=== PATIENT | male | born 1955 | race Caucasian/White ===

== ENCOUNTER → 2017-03-04 | Outpatient (CLI) | payer OTHER ==
[~2017-03-04] MED LIST: AMLO-114 PO; ASPI325T39 PO; DIPH1TAB87 PO; DOXY100C41 PO; IBUP-103 PO; LISI40TA PO; METH4PAK PO; PRED20TA PO
[2017-03-04 12:00] LABS: BASO % 0.4 %; BASO ABS # 0.02 K/uL (0-0.2); COMPLETE YES; EOS % 2.7 %; HEMATOCRIT 44.9 % (42-52); IG% 0.4 %; LYMPH % 31.7 %; LYMPH ABS # 1.53 K/uL (1.2-3.4); MEAN CELL VOLUME 87.5 fL (80-100); MEAN CORPUSCULAR HEMOGLOBIN 29.4 pg (25-34); MEAN CORPUSCULAR HGB CONC 33.6 g/dl (32-36); MEAN PLATELET VOLUME 12.8 fL (7.4-10.4); MONO % 12.9 %; NEUT % 51.9 %; PLATELET COUNT 224 K/uL (130-400); RED BLOOD COUNT 5.13 M/uL (4.7-6.1); WHITE BLOOD COUNT 4.82 K/uL (4.8-10.8)
[2017-03-04 12:30] LABS: ALB/GLOB RATIO 1.1 (0.9-2); ALKALINE PHOSPHATASE 60 U/L (45-117); ALT/SGPT 107 U/L (12-78); AST/SGOT 71 U/L (15-37); BLOOD UREA NITROGEN 20 mg/dl (7-18); BUN/CREATININE RATIO 19.8 (10-20); CALCIUM 9.3 mg/dl (8.5-10.1); CARBON DIOXIDE 25 mmol/L (21-32); CHLORIDE 104 mmol/L (98-107); CHOLESTEROL 201 mg/dl (0-200); CHOLESTEROL/HDL RATIO 1.6; GLUCOSE 91 mg/dl (70-99); HDL CHOLESTEROL 124 mg/dl; LDL CHOLESTEROL CALCULATED 68 mg/dl; SODIUM 140 mmol/L (136-145); TRIGLYCERIDES 46 mg/dl (0-150); VERY LOW DENSITY LIPOPROT CALC 9 mg/dl
[2017-03-08 08:23] LABS: HEPATITIS C RNA TMA QUAL Detected
== END | disposition home or self-care (01) ==
LOC: C.LABPBG 08:48
PROVIDERS: ATTEND Neuromusculoskeletal Medicine & OMM
DX: Z00.00 Encounter for general adult medical examination without abnormal findings (principal); Z11.59 Encounter for screening for other viral diseases

== ENCOUNTER → 2017-03-25 | Outpatient (CLI) | payer OTHER ==
[~2017-03-25] MED LIST changes: -DIPH1TAB87 PO; -DOXY100C41 PO; -METH4PAK PO; -PRED20TA PO
[2017-03-25 12:23] LABS: BASO % 0.2 %; BASO ABS # 0.01 K/uL (0-0.2); COMPLETE YES; EOS % 2.5 %; HEMATOCRIT 41.3 % (42-52); IG% 0.2 %; LYMPH % 33.3 %; LYMPH ABS # 1.48 K/uL (1.2-3.4); MEAN CELL VOLUME 87.1 fL (80-100); MEAN CORPUSCULAR HEMOGLOBIN 29.3 pg (25-34); MEAN CORPUSCULAR HGB CONC 33.7 g/dl (32-36); MEAN PLATELET VOLUME 11.9 fL (7.4-10.4); MONO % 13.7 %; NEUT % 50.1 %; PLATELET COUNT 204 K/uL (130-400); RED BLOOD COUNT 4.74 M/uL (4.7-6.1); WHITE BLOOD COUNT 4.44 K/uL (4.8-10.8)
[2017-03-25 12:31] LABS: PROTHROMBIN TIME (PATIENT) 10.2 SECONDS (9.0-12.0)
[2017-03-25 12:39] LABS: ALT/SGPT 83 U/L (12-78); AST/SGOT 42 U/L (15-37); BLOOD UREA NITROGEN 24 mg/dl (7-18); BUN/CREATININE RATIO 25.3 (10-20); CALCIUM 9.4 mg/dl (8.5-10.1); CARBON DIOXIDE 24 mmol/L (21-32); CHLORIDE 107 mmol/L (98-107); CREATININE 0.94 mg/dl (0.60-1.40); GLUCOSE 91 mg/dl (70-99); POTASSIUM 3.8 mmol/L (3.5-5.1); SODIUM 139 mmol/L (136-145); URIC ACID 5.3 mg/dl (2.6-7.2)
[2017-03-25 12:47] LABS: HEPATITIS B AB NEG
[2017-03-25 12:52] LABS: ALB/GLOB RATIO 1.1 (0.9-2); ALKALINE PHOSPHATASE 57 U/L (45-117)
[2017-03-25 12:56] LABS: ESTIMATED AVERAGE GLUCOSE 114 mg/dl; HA1C FLAG Normal (Normal)
[2017-03-27 18:15] LABS: LIVER FIBR APOLIPOPROTEIN A-1 196 mg/dL (94-176); LIVER FIBROS ALPHA-2-MACROGLOB 306 mg/dL (106-279); LIVER FIBROSIS GGT 199 U/L (3-70); NECROINFLAMMATION ACT GRADE A1-A2; NECROINFLAMMATION ACT SCORE 0.48
[2017-03-27 21:49] LABS: CARBOXY THC TO CREAT RATIO 86 NG/MG; CARBOXY THC UR GC/MS 217 NG/ML (CUTOFF=5); URCREATININE 246.4 MG/DL (>/= 20)
[2017-03-28 18:20] LABS: HEPATITIS C VIRAL RNA(LOG) PCR 6.06 LOG IU/ML (<1.18)
[2017-03-30 02:51] LABS: ANTI-CENTROMERE AB <1.0 NEG AI (<1.0 NEG); ANTI-SS-A <1.0 NEG AI (<1.0 NEG); ANTI-SS-B <1.0 NEG AI (<1.0 NEG); DNA ds CRITHIDIA NEGATIVE (NEGATIVE); MICROSOMAL AB 133 IU/ML (<9); Sm Antibody <1.0 NEG AI (<1.0 NEG)
== END | disposition home or self-care (01) ==
LOC: C.LABPBG 08:29
PROVIDERS: ATTEND Internal Medicine Infectious Disease
DX: B18.2 Chronic viral hepatitis C (principal)

== ENCOUNTER 2017-04-15 10:10 | Emergency (ER) | payer OTHER ==
[~2017-04-15] VITALS: Ht 177.8 cm; Wt 91.3 kg
[2017-04-15 10:15] VITALS: TEMP 36.8; Ht 177.8 cm; Wt 91.3 kg
--- NOTE | 2017-04-15 10:44 | EMERGENCY ROOM VISIT NOTE ---
History Report prepared by Anthony: Stanley Cox Under the Supervision of: Dr. Reva Regan M.D. First contact with patient: 10:30 Chief Complaint: SWELLING TO EXTREMITY Stated Complaint: PUFFY THUMBS History of Present Illness The patient is a 62 year old male who presents to the Emergency Room with complaints of worsening bilateral thumb swelling that started 5 days ago. He says that he woke up 5 days ago and noticed left thumb swelling, and thought he may have been bit by a bug in bed. 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 The patient states that he left it alone for a few days, but he noticed the swelling worsening and then he noticed his right thumb getting swollen as well. The patient notes that both his thumb joints are sore and " hurt right to the bone" when they are hit. He adds that his left thumb is still more swollen than his right thumb. The patient was treated twice for Lyme disease. He says that he has Hepatitis C, and gave 12 vials of blood during his Hepatitis workup earlier this month. He takes hypertension medication as well. Source of History: patient Onset: 5 days ago Position: finger(s) (bilateral thumbs, left worse than right) Quality: other (swelling) Timing: worsening Note: Associated symptoms: Bilateral thumb soreness. Review of Systems See HPI for pertinent positives & negatives. A total of 10 systems reviewed and were otherwise negative. Past Medical & Surgical Medical Problems: (1) Alcohol dependence (2) depression NOS (3) Hepatitis (4) Hypertension Family History No pertinent family history Social History Smoking Status: Former Smoker Drug Use: marijuana Marital Status: single Occupation Status: retired Current/Historical Medications Scheduled Amlodipine (Norvasc), 10 MG PO HS Aspirin (Aspirin Ec), 1 TAB PO DAILY Doxycycline (Monohydrate) (Monodox), 100 MG PO BID Lisinopril (Zestril), 40 MG PO QAM Methylprednisolone (Medrol Dosepak), 1 PKT PO UD Scheduled PRN Ibuprofen Tab (Advil), 200 MG PO QPM PRN for Pain Allergies Coded Allergies: No Known Allergies (Unverified , none, 04/15/17) Physical Exam Vital Signs Date Time Temp Pulse Resp B/P (MAP) Pulse Ox O2 Delivery O2 Flow Rate FiO2 04/15/17 11:32 77 16 138/74 98 04/15/17 10:15 36.8 77 18 143/92 97 Room Air Physical Exam Vital signs reviewed. General: Well-appearing 62 year old male, in no significant distress. HEENT: No scleral icterus, PERRLA, neck supple. Atraumatic. Cardiovascular: Regular rate and rhythm, no extra sounds. Pulmonary: Clear to auscultation bilaterally, normal work of breathing. Abdomen: Soft, nontender, nondistended, positive bowel sounds. Musculoskeletal: Mild swelling over left thumb DIP. Mild erythema and tenderness to palpation of nodule. No surrounding cellulitis, streaking, drainage, or foreign material identified. Some crepitus with range of motion of joint. Neurologic: Patient awake alert and oriented x 3, full strength in all 4 extremities. Cranial nerves 2 through 12 grossly intact. Skin: Warm, dry, no rash Medical Decision & Procedures Laboratory Results 04/15/17 11:00 Red Blood Count 4.73, Mean Corpuscular Volume 88.4, Mean Corpuscular Hemoglobin 29.8, Mean Corpuscular Hemoglobin Concent 33.7, Mean Platelet Volume 12.0, Neutrophils (%) (Auto) 59.3, Lymphocytes (%) (Auto) 27.3, Monocytes (%) (Auto) 10.8, Eosinophils (%) (Auto) 2.0, Basophils (%) (Auto) 0.4, Neutrophils # (Auto ) 2.73, Lymphocytes # (Auto) 1.26, Monocytes # (Auto) 0.50, Eosinophils # (Auto ) 0.09, Basophils # (Auto) 0.02 04/15/17 11:00 Test 04/15/17 11:00 White Blood Count 4.61 K/uL (4.8-10.8) Red Blood Count 4.73 M/uL (4.7-6.1) Hemoglobin 14.1 g/dL (14.0-18.0) Hematocrit 41.8 % (42-52) Mean Corpuscular Volume 88.4 fL (80-100) Mean Corpuscular Hemoglobin 29.8 pg (25-34) Mean Corpuscular Hemoglobin Concent 33.7 g/dl (32-36) Platelet Count 151 K/uL (130-400) Mean Platelet Volume 12.0 fL (7.4-10.4) Neutrophils (%) (Auto) 59.3 % Lymphocytes (%) (Auto) 27.3 % Monocytes (%) (Auto) 10.8 % Eosinophils (%) (Auto) 2.0 % Basophils (%) (Auto) 0.4 % Neutrophils # (Auto) 2.73 K/uL (1.4-6.5) Lymphocytes # (Auto) 1.26 K/uL (1.2-3.4) Monocytes # (Auto) 0.50 K/uL (0.11-0.59) Eosinophils # (Auto) 0.09 K/uL (0-0.5) Basophils # (Auto) 0.02 K/uL (0-0.2) RDW Standard Deviation 49.4 fL (36.4-46.3) RDW Coefficient of Variation 15.1 % (11.5-14.5) Immature Granulocyte % (Auto) 0.2 % Immature Granulocyte # (Auto) 0.01 K/uL (0.00-0.02) Erythrocyte Sedimentation Rate 19 mm/hr (0-14) Anion Gap 3.0 mmol/L (3-11) Est Creatinine Clear Calc Drug Dose 88.6 ml/min Estimated GFR () 95.9 Estimated GFR (Non- 82.7 BUN/Creatinine Ratio 24.3 (10-20) Calcium Level 9.3 mg/dl (8.5-10.1) C-Reactive Protein < 0.29 mg/dl (0-0.29) Lyme Disease IgG Antibody POS (NEG) Laboratory results per my review. ED Course 1034: Past medical records reviewed. The patient was evaluated in room A4B. A complete history and physical examination was performed. 1120: I reevaluated the patient and he is resting. The patient verbally expressed understanding and agreement with the treatment plan. The patient will be discharged. Medical Decision Differentials: Exacerbation of arthritis, gout, Lyme disease, bony injury, overuse. This patient was evaluated and appeared to be in no significant distress. Physical examination reveals arthritic distal joints with mild crepitus, particularly of the left thumb interphalangeal joint. Laboratory work was obtained however the patient requested to be discharged and call back for results. He is a very mildly elevated sedimentation rate, normal CRP. Lyme titer is positive, Western blot is pending. The patient will be treated with a 3 week course of doxycycline unless the confirmatory test come back negative. Patient is aware of the plan and agrees. He was also given a prescription for a Medrol Dosepak to assist with his discomfort. He will follow-up with his PCP for reevaluation and return to the ER for worsening of symptoms or any medical concerns. Medication Reconcilliation Current Medication List: was personally reviewed by me Blood Pressure Screening Patient's blood pressure: Elevated blood pressure Blood pressure disposition: Elevated BP felt to be situational Impression Primary Impression: Swelling of left thumb Scribe Attestation The scribe's documentation has been prepared under my direction and personally reviewed by me in its entirety. I confirm that the note above accurately reflects all work, treatment, procedures, and medical decision making performed by me. Departure Information Dispostion Home / Self-Care Prescriptions Doxycycline (Monohydrate) (MONODOX) 100 Mg Cap 100 MG PO BID, #42 CAP Prov: Reva Regan M.D. 04/15/17 Methylprednisolone (MEDROL DOSEPAK) 4 Mg Jorje 1 PKT PO UD for 6 Days, #1 PKT Prov: Reva Regan M.D. 04/15/17 Referrals No Doctor, Assigned (PCP) Maciel Strong D.Steph. Forms HOME CARE DOCUMENTATION FORM, IMPORTANT VISIT INFORMATION, WORK / SCHOOL INSTRUCTIONS Patient Instructions My [facility] Additional Instructions Diagnosis: Left thumb swelling. Ibuprofen 600 mg every 6 hours as needed for pain with food. Minimize recurrent trauma to the joint causing pain. Your laboratory work is pending, please call the emergency department within 24- 48 hours for laboratory results. [id number]. Follow-up with your primary care physician this week for reevaluation. Return to the emergency department for worsening of symptoms or any medical concerns.
[2017-04-15 11:13] LABS: BASO % 0.4 %; BASO ABS # 0.02 K/uL (0-0.2); COMPLETE YES; HEMATOCRIT 41.8 % (42-52); IG% 0.2 %; LYMPH % 27.3 %; LYMPH ABS # 1.26 K/uL (1.2-3.4); MEAN CELL VOLUME 88.4 fL (80-100); MEAN CORPUSCULAR HEMOGLOBIN 29.8 pg (25-34); MEAN CORPUSCULAR HGB CONC 33.7 g/dl (32-36); MONO % 10.8 %; NEUT % 59.3 %; PLATELET COUNT 151 K/uL (130-400); RED BLOOD COUNT 4.73 M/uL (4.7-6.1); WHITE BLOOD COUNT 4.61 K/uL (4.8-10.8)
[2017-04-15] MEDS ORDERED: METH4PAK PO (11:24)
[2017-04-15 11:30] LABS: BLOOD UREA NITROGEN 24 mg/dl (7-18); BUN/CREATININE RATIO 24.3 (10-20); C-REACTIVE PROTEIN < 0.29 mg/dl (0-0.29); CALCIUM 9.3 mg/dl (8.5-10.1); CARBON DIOXIDE 27 mmol/L (21-32); CHLORIDE 109 mmol/L (98-107); CREATININE 0.97 mg/dl (0.60-1.40); GLUCOSE 87 mg/dl (70-99); POTASSIUM 4.2 mmol/L (3.5-5.1); SODIUM 139 mmol/L (136-145)
[2017-04-15 11:32] VITALS: BP 138/74; PULSE 77; O2SAT 98
[2017-04-15 12:21] LABS: LYME DISEASE AB IGG POS (NEG); LYME DISEASE AB IGM POS (NEG)
[2017-04-15] MEDS ORDERED: DOXY100C41 PO (12:59)
[2017-04-21 13:08] LABS: 18KDIGG BAND REACTIVE (NONREACTIVE); 23KDIGG BAND REACTIVE (NONREACTIVE); 23KDIGM BAND REACTIVE (NONREACTIVE); 28KDIGG BAND REACTIVE (NONREACTIVE); 30KDIGG BAND REACTIVE (NONREACTIVE); 39KDIGG BAND REACTIVE (NONREACTIVE); 39KDIGM BAND NONREACTIVE (NONREACTIVE); 41KDIGG BAND REACTIVE (NONREACTIVE); 41KDIGM BAND REACTIVE (NONREACTIVE); 45KDIGG BAND REACTIVE (NONREACTIVE); 58KDIGG BAND REACTIVE (NONREACTIVE); 66KDIGG BAND REACTIVE (NONREACTIVE); 93KDIGG BAND REACTIVE (NONREACTIVE)
== END 2017-04-15 11:32 | disposition home or self-care (01) ==
LOC: C.EDB 10:11 → C.EDA 11:32
DX: M79.89 Other specified soft tissue disorders (principal); A69.20 Lyme disease, unspecified; B19.20 Unspecified viral hepatitis C without hepatic coma; I10 Essential (primary) hypertension; F32.9 Major depressive disorder, single episode, unspecified; F10.20 Alcohol dependence, uncomplicated; Z87.891 Personal history of nicotine dependence; Z79.82 Long term (current) use of aspirin; Z79.899 Other long term (current) drug therapy

== ENCOUNTER 2017-05-06 08:07 | Emergency (ER) | payer OTHER ==
[~2017-05-06] VITALS: Ht 172.7 cm; Wt 91.9 kg
[2017-05-06 08:11] VITALS: TEMP 36.7; Ht 172.7 cm; Wt 91.9 kg
--- NOTE | 2017-05-06 08:30 | EMERGENCY ROOM VISIT NOTE ---
History Report prepared by Latanyaibleatha: Susan Mueller Under the Supervision of: Dr. Mauricio Duque M.D. First contact with patient: 08:21 Chief Complaint: ALLERGIC REACTION Stated Complaint: BEE STING/SWELLING Nursing Triage Summary: Stung by bee yesterday around 1900 when taking a vodka shot. Thought symptoms may improve by this AM, swelling continued. Now with headache. History of Present Illness The patient is a 62 year old male who presents to the Emergency Room with complaints of persistent lower lip swelling that began around 12 hours ago. The patient states that last evening he was taking a shot of vodka and then found that a bee was in the bottom of the glass. He states that he noticed he was stung and states that his lower lip swelled. The patient states that he has been stung in the past, but denies ever having a reaction like this in the past. He states that he takes medications for hypertension, but states that he didn't take it this morning. The patient denies any medication allergies. Source of History: patient Onset: 12 hours ago Position: lip (lower) Quality: other (swelling) Timing: other (persistent) Review of Systems See HPI for pertinent positives & negatives. A total of 10 systems reviewed and were otherwise negative. Past Medical & Surgical Medical Problems: (1) Alcohol dependence (2) depression NOS (3) Hepatitis (4) Hypertension Family History No pertinent family history Social History Smoking Status: Never Smoker Drug Use: marijuana Marital Status: single Occupation Status: retired Current/Historical Medications Scheduled Amlodipine (Norvasc), 10 MG PO HS Aspirin (Aspirin Ec), 1 TAB PO DAILY Diphenhydramine Hcl (Benadryl Allergy), 1-2 TAB PO Q6 Lisinopril (Zestril), 40 MG PO QAM Prednisone (Prednisone), 2 TAB PO DAILY Scheduled PRN Ibuprofen Tab (Advil), 200 MG PO QPM PRN for Pain Allergies Coded Allergies: No Known Allergies (Unverified , none, 04/15/17) Physical Exam Vital Signs Date Time Temp Pulse Resp B/P (MAP) Pulse Ox O2 Delivery O2 Flow Rate FiO2 05/06/17 08:17 Room Air 05/06/17 08:11 36.7 87 18 141/98 97 Room Air Physical Exam GENERAL: Patient is in no acute distress. HEENT: Edema to the right face and lower lip. No cellulitis. No swelling to the floor of the mouth, no uvular edema, no tongue swelling. Mucous membranes moist. NECK: No stridor, no adenopathy, no meningismus, trachea is midline. LUNGS: Clear to auscultation bilaterally, no wheeze, no rhonchi, breath sounds equal. HEART: Without murmurs gallops or rubs, regular rate and rhythm. ABDOMEN: Soft, nontender, bowel sounds positive, no hernias, no peritonitis. EXTREMITIES: No cyanosis or edema, full range of motion of all the joints without pain or difficulty, no signs for acute trauma. NEUROLOGIC: Oriented x 3, no acute motor or sensory deficits, no focal weakness. SKIN: No rash, no jaundice, no diaphoresis. Medical Decision & Procedures ED Course 08: The patient was evaluated in room B9. A complete history and physical exam was performed. 0825: Ordered Prednisone 40 mg PO. 0827: I discussed the exam findings with the patient and I discussed the treatment plan. He verbalized complete understanding and agreement. He is ready to go home shortly. 0830: Ordered Benadryl Cap 25 mg PO. Medical Decision The patient is a 62 year old male who presents to the ED with complaints of lower lip swelling. Differential diagnoses considered include Allergic reaction , large local bee sting reaction, edema, airway compromise. The patient presents with a bee sting that occurred around 12 hours ago. He has no uvular edema, there is no stridor, no swelling to the floor of the mouth. He is not wheezing. This is not an allergic reaction but more a larger local reaction on the face from the bee sting. The patient was given oral Benadryl and oral prednisone, head elevation when sleeping, ice were suggested. The patient can restart his normal blood pressure medications as before. He was encouraged to return for worsening breathing or worsening symptoms. Impression Primary Impression: Bee sting Additional Impression: Local reaction to bee sting Scribe Attestation The scribe's documentation has been prepared under my direction and personally reviewed by me in its entirety. I confirm that the note above accurately reflects all work, treatment, procedures, and medical decision making performed by me. Departure Information Dispostion Home / Self-Care Prescriptions Diphenhydramine Hcl (BENADRYL ALLERGY) 25 Mg Tab 1-2 TAB PO Q6 for 4 Days, #32 TAB Prov: Mauricio Duque M.D. 05/06/17 Prednisone (Prednisone) 20 Mg Tab 2 TAB PO DAILY for 4 Days, #8 TAB Prov: Mauricio Duque M.D. 05/06/17 Referrals Maciel Strong D.O. (PCP) Forms HOME CARE DOCUMENTATION FORM, IMPORTANT VISIT INFORMATION Patient Instructions [facility] Additional Instructions benadryl 1-2 tab every 6 hours for 4 days ice to help the swelling elevate the head when sleeping to help the swelling prednisone 2 tab daily for the next 4 days return if worsening Problem Qualifiers
[2017-05-06] MEDS ORDERED: PRED20TA PO (08:32)
[2017-05-06] MEDS ORDERED: DIPH1TAB PO (08:32)
[2017-05-06 08:40] VITALS: BP 141/98; PULSE 87; O2SAT 97
== END 2017-05-06 08:43 | disposition home or self-care (01) ==
LOC: C.EDB 08:09
DX: T63.441A Toxic effect of venom of bees, accidental (unintentional), initial encounter (principal); I10 Essential (primary) hypertension; F32.9 Major depressive disorder, single episode, unspecified; F10.20 Alcohol dependence, uncomplicated; F12.90 Cannabis use, unspecified, uncomplicated; Z79.82 Long term (current) use of aspirin; Z79.899 Other long term (current) drug therapy

== ENCOUNTER → 2017-05-11 | Outpatient (CLI) | payer OTHER ==
[~2017-05-11] MED LIST changes: +DIPH1TAB PO; +PRED20TA PO
[2017-05-13 03:12] LABS: URCREATININE 9.3 MG/DL (>/= 20)
== END | disposition home or self-care (01) ==
LOC: C.LAB 11:15
PROVIDERS: ATTEND Internal Medicine Infectious Disease
DX: B19.20 Unspecified viral hepatitis C without hepatic coma (principal)

== ENCOUNTER 2021-12-23 12:05 | Inpatient (IN) ==
[2021-12-23] MEDS ORDERED: MULTI-VITAMIN INFUSION 10 ML, THIAMINE HCL 100 MG, FOLIC ACID 1 MG in SODIUM CHLORIDE 0... IV ONE (12:32)
--- NOTE | 2021-12-23 12:55 | XRay Report ---
SINGLE VIEW CHEST CLINICAL HISTORY: Atypical chest pain FINDINGS: An AP, portable, upright chest radiograph is compared to chest x-ray and chest CT dated 01/18. The heart is enlarged noting atherosclerotic calcification of the thoracic aorta. The pulmonar y vasculature is noncongested. Chronic residual thickening is similar to previous. Foci of scarring/a telectasis are seen throughout both lungs. No airspace consolidation or large pleural effusion is arben ntified. No pneumothorax is seen. The skeletal structures are osteopenic. There are healed bilateral rib fractures. IMPRESSION: Cardiomegaly with no acute cardiopulmonary abnormality. ACT 112: Negative or not required by law. Electronically signed by: Mauricio Tucker M.D. 12/23/2021 12:53 PM
[2021-12-23 13:05] LABS: Basophils # (auto) 0.01 K/uL (0-0.2); Basophils % (auto) 0.2 %; Eosinophils # (auto) 0.02 K/uL (0-0.5); Eosinophils % (auto) 0.4 %; Hematocrit (blood only) 42.7 % (42-52); Hemoglobin 14.6 g/dL (14.0-18.0); Immature Granulocytes # (auto) 0.01 K/uL (0.00-0.02); Immature Granulocytes % (auto) 0.2 %; Lymphocytes # (auto) 1.15 K/uL (1.2-3.4); Lymphocytes % (auto) 20.9 %; Mean Corpuscular Hemoglobin 30.9 pg (25-34); Mean Corpuscular Hgb Conc 34.2 g/dL (32-36); Mean Corpuscular Volume 90.3 fL (80-100); Mean Platelet Volume 11.9 fL (7.4-10.4); Monocytes # (auto) 0.75 K/uL (0.11-0.59); Monocytes % (auto) 13.6 %; Neutrophils # (auto) 3.57 K/uL (1.4-6.5); Neutrophils % (auto) 64.7 %; Platelet Count 168 K/uL (130-400); RDW Coefficient of Variation 14.5 % (11.5-14.5); Red Blood Count 4.73 M/uL (4.7-6.1); White Blood Count 5.51 K/uL (4.8-10.8)
[2021-12-23 13:30] LABS: Albumin Globulin Ratio 1.1 (0.9-2); Albumin Level 4.5 gm/dl (3.4-5.0); BUN Creatinine Ratio 13.1 (10-20); Bilirubin,Total 1.1 mg/dl (0.2-1.0); Calcium 9.7 mg/dl (8.5-10.1); Creatinine Clr Calc Pharmacy 95.1 ml/min; Est GFR (Non-African American) 90.6 ml/min; Globulin 4.1 gm/dl (2.5-4.0); Magnesium 1.6 mg/dl (1.7-2.4); Phosphorus 3.7 mg/dl (2.5-4.9); Potassium 3.6 mmol/L (3.5-5.1); Total Protein 8.6 gm/dl (6.0-8.3)
--- NOTE | 2021-12-23 14:36 | CT Scan Report ---
CT head/brain wo con CLINICAL HISTORY: 66 years-old Male with ams. Acutely altered mental status TECHNIQUE: Multiple axial CT images of the head were obtained without contrast. A dose lowering tech nique was utilized adhering to the principles of ALARA. CT DOSE: 614.27 mGy.cm COMPARISON: Head CT 01/18/2021 FINDINGS: No acute intracranial hemorrhage, midline shift, intracranial mass, hydrocephalus, territorial ischem ia or abnormal extra-axial collection. Age-related involutional changes with ex vacuo ventriculomegal y. White matter hypodensities suggest chronic microvascular ischemic disease. Cerebral vascular calci fications. The calvarium is intact. There is a sessile cutaneous lesion of the right temporal scalp on image 15 measuring 1.9 cm. The paranasal sinuses, mastoid air cells, and middle ear cavities are clear. IMPRESSION: No acute intracranial abnormality. ACT 112: Negative or not required by law. The above report was generated using voice recognition software. It may contain grammatical, syntax o r spelling errors. Electronically signed by: Brandt Seo M.D. 12/23/2021 2:34 PM
[2021-12-23] MEDS: MAGNESIUM SULFATE / D5W 1 GM/100 ML BAG IV SCH ×2 (14:48→15:56)
[2021-12-23] MEDS ORDERED: THIAMINE HCL 200 MG in SODIUM CHLORIDE 0.9% 50 ML IV STA (15:37)
[2021-12-23] MEDS: LORazepam 2 MG/1 ML VIAL IV PRN ×7 (17:50→23:21)
--- NOTE | 2021-12-23 18:44 | Emergency Department Note ---
Impression & Plan Encephalopathy, Alcohol dependence, Marijuana use, Hypertensive urgency, Delirium tremens, Hypomagnesemia ED Provider Note NAME: RICO BRINK AGE: 66 SEX: M ARRIVES VIA: Ambulance INFORMANT: Patient, EMS ED PROVIDER(S): Theodore Jacome MD CHIEF COMPLAINT: AMS PLAN: Disposition: Admit MEDICAL DECISION MAKING: The patient patient is a 66-year-old gentleman with a past medical history of alcohol dependence/alcoholism who presents emergency department via EMS. It appears that the patient himself called 911 due to delusions of odor and walking on his roof and looking into his house with a flashlight where he describes them as heroin addicts. The patient is a poor historian and lacks insight at this time. It was the impression from EMS that the patient's perseverations of these children looking into his house are delusions. The patient denies any daily alcohol use and does not feel as though he is withdrawing. However he is unable to clearly explain any of the details of what led him to be brought to the emergency department other than his continued presumed hallucinations regarding children on his roof. On arrival the patient is hypertensive in the 200s/100s and vital signs otherwise stable. He appears clinically dry. He has no focal neurologic deficits and is moving all extremities equally. He does not exhibit any severe tremor on arrival. EKG without overt acute ischemia. Chest x-ray was negative for acute cardiopulmonary process. WBC, H/H, platelets wnl. Chemistry without acidosis. Magnesium 1.6 with repletion provided. Otherwise, Electrolytes unremarkable. LFTs similar to prior. High-sensitivity Troponin wnl. Lipase is not elevated. Covid-19 RNA, NAAT neg ative. Blood alcohol was undetectable. He was also provided with IV fluid hydration with banana bag as well as IV thiamine for suspicion for encephalopathy secondary to alcohol dependence/Wernicke's versus delirium tremens though he did not appear to be acutely withdrawing on arrival. However, AWSS scoring ordered and Ativan was administered prn. CT of the head was performed and was negative for acute process. The patient appears to be suffering from wernicke's vs DTs and does not exhibit decision-making capacity at this time and so will proceed with admission for further management. Case was d/w Dr. Tony, [facility] hospitalist who will evaluate the patient for admission. Triage Nursing notes reviewed and agree them. Prior medical records reviewed Vital Signs: reviewed and remarkable for hypertension. Differential diagnosis: Infection, hypoglycemia, electrolyte abnormalities, overdose, toxicologic, cardiac sources, intracerebral event, neurologic, trauma, as well as other pathologies. ER treatment provided: See below. Diagnostics interpreted by me: ECG: Normal sinus rhythm, 91 bpm, no ectopy, no overt ST elevation or depression, QTC 499, QRS 94. Cardiac Monitoring: An order for continuous cardiac monitoring was placed and demonstrated normal sinus rhythm, 91 bpm, no ectopy. Laboratory studies: See below Imaging studies: See below Consultation(s): Dr. Tony, [facility] hospitalist. HPI: The patient patient is a 66-year-old gentleman with a past medical history of alcohol dependence/alcoholism who presents emergency department via EMS. It appears that the patient himself called 911 due to delusions of odor and walking on his roof and looking into his house with a flashlight where he describes them as heroin addicts. The patient is a poor historian and lacks insight at this time. It was the impression from EMS that the patient's perseverations of these children looking into his house are delusions. The patient denies any daily alcohol use and does not feel as though he is withdrawing. However he is unable to clearly explain any of the details of what led him to be brought to the emergency department other than his continued presumed hallucinations regarding children on his roof. ROS: See above HPI for pertinent positives & negatives. A total of 10 systems reviewed and were otherwise negative. VITALS:See Below PHYSICAL EXAMINATION: GENERAL: Awake, alert, fatigued/anxious-appearing, in no distress HENT: Normocephalic, atraumatic. Oropharynx with dry mucous membranes and otherwise unremarkable. EYES: Normal conjunctiva. Sclera non-icteric. EOMI. No nystamgus. PEARRL. NECK: Supple. No nuchal rigidity. FROM. No JVD. RESPIRATORY: Clear to auscultation. CARDIAC: Regular rate, normal rhythm. Extremities warm and well perfused. Pulses equal. ABDOMEN: Soft, non-distended. No tenderness to palpation. No rebound or guarding. No masses. RECTAL: Deferred. MUSCULOSKELETAL: Chest examination reveals no tenderness. The back is symmetrical on inspection without obvious abnormality. There is no CVA tenderness to palpation. No joint edema. LOWER EXTREMITIES: Calves are equal size bilaterally and non-tender. No edema. No discoloration. NEURO: No focal sensory or motor deficits noted. Delusional. Hallucinations. Lack of insight. SKIN: No rash or jaundice noted. ED COURSE: Critical Care: I have personally spent greater than 45 minutes of critical care time in the direct management of this patient. This includes bedside care, interpretation of diagnostic studies, and testing, discussion with consultants, patient, and family members, and other required patient management activities. This 45 minutes is in excess of all separately billable procedures. Theodore Jacome MD Past Med/Surg History Medical History Alcohol dependence (06/08/11) Bee sting allergy Depression (06/08/11) Hepatitis C Hypertension Marijuana use Surgical History Status post hernia repair Status post knee surgery Family History Father Diabetes Hypertension Mother Breast cancer Denies family history of Ovarian cancer Prostate cancer Myocardial infarction Colorectal cancer Social History Smoking Status: Current some day smoker Hx Alcohol Use: Yes Alcohol type: beer and hard liquor Hx Substance Use: Yes Preferred Language: Peruvian Visual Impairment: No Limitations Hearing Ability: Normal marital status: Single Current Living Situation: Alone current occupational status: retired Feels Safe at Home: No Childhood Exposure to Second-Hand Smoke: No Dental Care, Regularly: Yes Physical Activity Frequency: Does not Exercise Seatbelt Use: always Allergies Allergies Allergy/AdvReac Type Severity Reaction Status Date / Time bee venom protein (honey bee) AdvReac Severe Anaphylaxis Unverified 12/23/21 15:51 Home Meds Home Medications Medication Instructions Recorded Confirmed No Known Home Medications 12/23/21 12/23/21 Results & Data (ED) Vital Signs Vital Signs - 24 hr 12/23/21 12:11 12/23/21 13:37 12/23/21 14:06 Temperature 36.7 C Temperature Source Temporal Artery Scan Pulse Rate 95 H 78 81 Pulse Rate from SpO2 Sensor 79 Respiratory Rate 18 15 19 Blood Pressure 210/115 H Blood Pressure Mean 146 Pulse Oximetry 96 96 Oxygen Delivery Method Room Air Sepsis Recent Fever Within 48 Hours No Sepsis New/Unexplained Change in Mental Status No Sepsis Action Taken by Nursing No Action Required 12/23/21 14:51 12/23/21 15:00 12/23/21 15:30 Temperature Temperature Source Pulse Rate 85 84 91 H Pulse Rate from SpO2 Sensor Respiratory Rate 15 16 Blood Pressure Blood Pressure Mean Pulse Oximetry Oxygen Delivery Method Sepsis Recent Fever Within 48 Hours Sepsis New/Unexplained Change in Mental Status Sepsis Action Taken by Nursing 12/23/21 16:00 12/23/21 16:30 12/23/21 16:57 Temperature Temperature Source Pulse Rate 84 91 H 108 H Pulse Rate from SpO2 Sensor Respiratory Rate 17 18 17 Blood Pressure 154/115 H Blood Pressure Mean 128 Pulse Oximetry Oxygen Delivery Method Sepsis Recent Fever Within 48 Hours Sepsis New/Unexplained Change in Mental Status Sepsis Action Taken by Nursing 12/23/21 17:00 12/23/21 17:10 12/23/21 17:20 Temperature Temperature Source Pulse Rate 102 H 93 H 94 H Pulse Rate from SpO2 Sensor Respiratory Rate 19 21 20 Blood Pressure Blood Pressure Mean Pulse Oximetry Oxygen Delivery Method Sepsis Recent Fever Within 48 Hours Sepsis New/Unexplained Change in Mental Status Sepsis Action Taken by Nursing 12/23/21 17:30 12/23/21 17:38 12/23/21 17:40 Temperature Temperature Source Pulse Rate 93 H 111 H 105 H Pulse Rate from SpO2 Sensor Respiratory Rate 25 H 22 20 Blood Pressure 240/141 H Blood Pressure Mean 174 Pulse Oximetry Oxygen Delivery Method Sepsis Recent Fever Within 48 Hours Sepsis New/Unexplained Change in Mental Status Sepsis Action Taken by Nursing 12/23/21 17:50 12/23/21 18:00 12/23/21 18:10 Temperature Temperature Source Pulse Rate 87 100 H 116 H Pulse Rate from SpO2 Sensor Respiratory Rate 17 17 25 H Blood Pressure Blood Pressure Mean Pulse Oximetry Oxygen Delivery Method Sepsis Recent Fever Within 48 Hours Sepsis New/Unexplained Change in Mental Status Sepsis Action Taken by Nursing 12/23/21 18:20 Temperature Temperature Source Pulse Rate Pulse Rate from SpO2 Sensor Respiratory Rate 18 Blood Pressure Blood Pressure Mean Pulse Oximetry Oxygen Delivery Method Sepsis Recent Fever Within 48 Hours Sepsis New/Unexplained Change in Mental Status Sepsis Action Taken by Nursing Laboratory Data Attestation: I reviewed the patient's lab results. Result diagrams: 12/23/21 12:52 12/23/21 12:52 Lab Results 12/23/21 12/23/21 12/23/21 Range/Units 12:52 12:52 12:52 WBC 5.51 (4.8-10.8) K/uL RBC 4.73 (4.7-6.1) M/uL Hgb 14.6 (14.0-18.0) g/dL Hct 42.7 (42-52) % MCV 90.3 (80-100) fL MCH 30.9 (25-34) pg MCHC 34.2 (32-36) g/dL RDW Std Deviation 48.0 H (36.4-46.3) fL RDW Coeff of Dutch 14.5 (11.5-14.5) % Plt Count 168 (130-400) K/uL MPV 11.9 H (7.4-10.4) fL Immature Gran % (Auto) 0.2 % Neut % (Auto) 64.7 % Lymph % (Auto) 20.9 % Gilliam % (Auto) 13.6 % Eos % (Auto) 0.4 % Baso % (Auto) 0.2 % Neut # (Auto) 3.57 (1.4-6.5) K/uL Lymph # (Auto) 1.15 L (1.2-3.4) K/uL Gilliam # (Auto) 0.75 H (0.11-0.59) K/uL Eos # (Auto) 0.02 (0-0.5) K/uL Baso # (Auto) 0.01 (0-0.2) K/uL Immature Gran # (Auto) 0.01 (0.00-0.02) K/uL PT (9.0-12.0) Seconds INR (0.9-1.1) Sodium (136-145) mmol/L Potassium (3.5-5.1) mmol/L Chloride (98-107) mmol/L Carbon Dioxide (21-32) mmol/L Anion Gap (3-11) BUN (6-23) mg/dl Creatinine (0.6-1.4) mg/dl Est Cr Clr Drug Dosing ml/min Est GFR ( Amer) ml/min Est GFR (Non-Af Amer) ml/min BUN/Creatinine Ratio (10-20) Glucose (70-99(Fasting)) mg/dl Calcium (8.5-10.1) mg/dl Phosphorus (2.5-4.9) mg/dl Magnesium (1.7-2.4) mg/dl Total Bilirubin (0.2-1.0) mg/dl Direct Bilirubin (0-0.2) mg/dl AST (13-39) U/L ALT (7-52) U/L Alkaline Phosphatase (34-104) U/L Ammonia (18-72) umol/L Troponin I High Sens 7.6 (0-20) pg/ml Total Protein (6.0-8.3) gm/dl Albumin (3.4-5.0) gm/dl Globulin (2.5-4.0) gm/dl Albumin/Globulin Ratio (0.9-2) Lipase (11-82) U/L Urine Opiates Screen (Neg) Ur Methadone, Qual (Neg) Urine Barbiturates (Neg) Ur Phencyclidine (PCP) (Neg) U Amphetamin/Meth Scrn (Neg) MDMA (Ecstasy) Screen (Neg) U Benzodiazepines Scrn (Neg) Ur Cocaine Metabolite (Neg) U Marijuana (THC) Screen (Neg) Ethyl Alcohol mg/dL < 10.0 (<10.0) mg/dl SARS-CoV-2, RNA, NAAT (NEGATIVE) 12/23/21 12/23/21 12/23/21 Range/Units 12:52 12:52 12:52 WBC (4.8-10.8) K/uL RBC (4.7-6.1) M/uL Hgb (14.0-18.0) g/dL Hct (42-52) % MCV (80-100) fL MCH (25-34) pg MCHC (32-36) g/dL RDW Std Deviation (36.4-46.3) fL RDW Coeff of Dutch (11.5-14.5) % Plt Count (130-400) K/uL MPV (7.4-10.4) fL Immature Gran % (Auto) % Neut % (Auto) % Lymph % (Auto) % Gilliam % (Auto) % Eos % (Auto) % Baso % (Auto) % Neut # (Auto) (1.4-6.5) K/uL Lymph # (Auto) (1.2-3.4) K/uL Gilliam # (Auto) (0.11-0.59) K/uL Eos # (Auto) (0-0.5) K/uL Baso # (Auto) (0-0.2) K/uL Immature Gran # (Auto) (0.00-0.02) K/uL PT 11.0 (9.0-12.0) Seconds INR 1.0 (0.9-1.1) Sodium 135 L (136-145) mmol/L Potassium 3.6 (3.5-5.1) mmol/L Chloride 97 L (98-107) mmol/L Carbon Dioxide 25 (21-32) mmol/L Anion Gap 13 H (3-11) BUN 11 (6-23) mg/dl Creatinine 0.84 (0.6-1.4) mg/dl Est Cr Clr Drug Dosing 95.1 ml/min Est GFR ( Amer) 105.0 ml/min Est GFR (Non-Af Amer) 90.6 ml/min BUN/Creatinine Ratio 13.1 (10-20) Glucose 99 (70-99(Fasting)) mg/dl Calcium 9.7 (8.5-10.1) mg/dl Phosphorus 3.7 (2.5-4.9) mg/dl Magnesium 1.6 L (1.7-2.4) mg/dl Total Bilirubin 1.1 H (0.2-1.0) mg/dl Direct Bilirubin (0-0.2) mg/dl AST 71 H (13-39) U/L ALT 82 H (7-52) U/L Alkaline Phosphatase 69 (34-104) U/L Ammonia 36.0 (18-72) umol/L Troponin I High Sens (0-20) pg/ml Total Protein 8.6 H (6.0-8.3) gm/dl Albumin 4.5 (3.4-5.0) gm/dl Globulin 4.1 H (2.5-4.0) gm/dl Albumin/Globulin Ratio 1.1 (0.9-2) Lipase 8 L (11-82) U/L Urine Opiates Screen (Neg) Ur Methadone, Qual (Neg) Urine Barbiturates (Neg) Ur Phencyclidine (PCP) (Neg) U Amphetamin/Meth Scrn (Neg) MDMA (Ecstasy) Screen (Neg) U Benzodiazepines Scrn (Neg) Ur Cocaine Metabolite (Neg) U Marijuana (THC) Screen (Neg) Ethyl Alcohol mg/dL (<10.0) mg/dl SARS-CoV-2, RNA, NAAT (NEGATIVE) 12/23/21 12/23/21 12/23/21 Range/Units 12:59 14:00 14:15 WBC (4.8-10.8) K/uL RBC (4.7-6.1) M/uL Hgb (14.0-18.0) g/dL Hct (42-52) % MCV (80-100) fL MCH (25-34) pg MCHC (32-36) g/dL RDW Std Deviation (36.4-46.3) fL RDW Coeff of Dutch (11.5-14.5) % Plt Count (130-400) K/uL MPV (7.4-10.4) fL Immature Gran % (Auto) % Neut % (Auto) % Lymph % (Auto) % Gilliam % (Auto) % Eos % (Auto) % Baso % (Auto) % Neut # (Auto) (1.4-6.5) K/uL Lymph # (Auto) (1.2-3.4) K/uL Gilliam # (Auto) (0.11-0.59) K/uL Eos # (Auto) (0-0.5) K/uL Baso # (Auto) (0-0.2) K/uL Immature Gran # (Auto) (0.00-0.02) K/uL PT (9.0-12.0) Seconds INR (0.9-1.1) Sodium (136-145) mmol/L Potassium (3.5-5.1) mmol/L Chloride (98-107) mmol/L Carbon Dioxide (21-32) mmol/L Anion Gap (3-11) BUN (6-23) mg/dl Creatinine (0.6-1.4) mg/dl Est Cr Clr Drug Dosing ml/min Est GFR ( Amer) ml/min Est GFR (Non-Af Amer) ml/min BUN/Creatinine Ratio (10-20) Glucose (70-99(Fasting)) mg/dl Calcium (8.5-10.1) mg/dl Phosphorus (2.5-4.9) mg/dl Magnesium (1.7-2.4) mg/dl Total Bilirubin (0.2-1.0) mg/dl Direct Bilirubin 0.3 H (0-0.2) mg/dl AST (13-39) U/L ALT (7-52) U/L Alkaline Phosphatase (34-104) U/L Ammonia (18-72) umol/L Troponin I High Sens (0-20) pg/ml Total Protein (6.0-8.3) gm/dl Albumin (3.4-5.0) gm/dl Globulin (2.5-4.0) gm/dl Albumin/Globulin Ratio (0.9-2) Lipase (11-82) U/L Urine Opiates Screen Neg (Neg) Ur Methadone, Qual Neg (Neg) Urine Barbiturates Neg (Neg) Ur Phencyclidine (PCP) Neg (Neg) U Amphetamin/Meth Scrn Neg (Neg) MDMA (Ecstasy) Screen Neg (Neg) U Benzodiazepines Scrn Neg (Neg) Ur Cocaine Metabolite Neg (Neg) U Marijuana (THC) Screen Neg (Neg) Ethyl Alcohol mg/dL (<10.0) mg/dl SARS-CoV-2, RNA, NAAT NEGATIVE (NEGATIVE) Administered Medications Enoxaparin Sodium (Enoxaparin Inj 40 Mg/0.4 Ml Syr) 40 mg SQ QPM TYLOR Stop: 01/22/22 20:59 Last Admin: 12/23/21 22:16 Dose: 40 mg Documented by: [id number] Lactated Ringer's (Lr) 1,000 mls @ 80 mls/hr IV .[id number] [facility] Stop: 01/22/22 20:22 Last Admin: 12/23/21 21:43 Dose: 80 mls/hr Documented by: [id number] Folic Acid 1 mg/ Syringe 10 mls @ 5 mls/min IV QAM TYLOR Stop: 01/22/22 20:59 Last Admin: 12/23/21 22:17 Dose: 5 mls/min Documented by: [id number] Thiamine HCl 500 mg/ Sodium (Chloride) 55 mls @ 210 mls/hr IV TID TYLOR Stop: 01/22/22 20:59 Last Admin: 12/23/21 22:19 Dose: 210 mls/hr Documented by: [id number] Potassium Chloride (K Marty / Wtr) 10 meq in 100 mls @ 100 mls/hr IV Q1H TYLOR; Protocol Stop: 12/23/21 23:49 Last Admin: 12/23/21 23:00 Dose: 100 mls/hr Documented by: [id number] Labetalol HCl (Labetalol Hcl Iv 5 Mg/Ml 20ml) 10 mg IV Q2H PRN PRN Reason: Hypertension Stop: 01/22/22 21:50 Last Admin: 12/23/21 22:46 Dose: 10 mg Documented by: [id number] Cosigned by: [id number] Lorazepam (Lorazepam 2 Mg/1 Ml Vial) 2 mg IV UD PRN; Protocol PRN Reason: EtOH Withdrawl AWSS Score 8,9 Stop: 01/22/22 20:22 Last Admin: 12/23/21 23:21 Dose: 2 mg Documented by: [id number] Lorazepam (Lorazepam 2 Mg/1 Ml Vial) 3 mg IV ONCE PRN; Protocol PRN Reason: EtOH Withdrawl AWSS Score >=10 Stop: 01/22/22 20:22 Last Admin: 12/23/21 22:44 Dose: 3 mg Documented by: [id number] Admin: 12/23/21 22:11 Dose: 3 mg Documented by: [id number] Admin: 12/23/21 21:36 Dose: 3 mg Documented by: [id number] Discontinued Medications Multivitamins 10 ml/ Thiamine HCl 100 mg/ Folic Acid 1 mg/Sodium Chloride 1,011.2 mls @ 1,011.2 mls/hr IV .Q1H ONE Stop: 12/23/21 13:31 Last Infusion: 12/23/21 14:13 Dose: 0 mls/hr Documented by: [id number] Admin: 12/23/21 13:11 Dose: 1,011.2 mls/hr Documented by: [id number] Magnesium Sulfate/Dextrose (Magnesium Sulfate / D5w) 1 gm in 100 mls @ 100 mls/hr IV Q1H TYLOR Stop: 12/23/21 15:41 Last Infusion: 12/23/21 17:17 Dose: 0 mls/hr Documented by: [id number] Admin: 12/23/21 15:56 Dose: 100 mls/hr Documented by: [id number] Infusion: 12/23/21 15:55 Dose: 0 mls/hr Documented by: [id number] Admin: 12/23/21 14:48 Dose: 100 mls/hr Documented by: [id number] Thiamine HCl 200 mg/ Sodium (Chloride) 52 mls @ 208 mls/hr IV NOW STA Stop: 12/23/21 15:38 Last Infusion: 12/23/21 17:17 Dose: 0 mls/hr Documented by: [id number] Admin: 12/23/21 16:43 Dose: 208 mls/hr Documented by: [id number] Lorazepam (Lorazepam 2 Mg/1 Ml Vial) 1 mg IV ONE PRN; Protocol PRN Reason: EtoH Withdrawal AWSS 6-10 Stop: 01/22/22 17:41 Last Admin: 12/23/21 19:46 Dose: 1 mg Documented by: [id number] Admin: 12/23/21 19:40 Dose: 1 mg Documented by: [id number] Admin: 12/23/21 17:50 Dose: 1 mg Documented by: [id number] Lorazepam (Lorazepam 2 Mg/1 Ml Vial) 2 mg IV NOW STA Stop: 12/23/21 18:54 Last Admin: 12/23/21 19:06 Dose: 2 mg Documented by: [id number] Lorazepam (Lorazepam 2 Mg/1 Ml Vial) 1 mg IV NOW STA Stop: 12/23/21 20:02 Last Admin: 12/23/21 20:32 Dose: 1 mg Documented by: [id number] Metoprolol Tartrate (Metoprolol Tartrate 1 Mg/Ml Vial) 5 mg IV NOW STA; Protocol Stop: 12/23/21 18:54 Last Admin: 12/23/21 19:20 Dose: 5 mg Documented by: [id number] Imaging Data Radiologist's Impression: Chest X-Ray 12/23/21 12:31 SINGLE VIEW CHEST CLINICAL HISTORY: Atypical chest pain FINDINGS: An AP, portable, upright chest radiograph is compared to chest x-ray and chest CT dated 01/18/2021. The heart is enlarged noting atherosclerotic calcification of the thoracic aorta. The pulmonary vasculature is noncongested. Chronic residual thickening is similar to previous. Foci of scarring/atelectasis are seen throughout both lungs. No airspace consolidation or large pleural effusion is identified. No pneumothorax is seen. The skeletal structures are o steopenic. There are healed bilateral rib fractures. IMPRESSION: Cardiomegaly with no acute cardiopulmonary abnormality. ACT 112: Negative or not required by law. Electronically signed by: Mauricio Tucker M.D. 12/23/2021 12:[address] 12/23/21 13:43 CT head/brain wo con CLINICAL HISTORY: 66 years-old Male with ams. Acutely altered mental status TECHNIQUE: Multiple axial CT images of the head were obtained without contrast. A dose lowering technique was utilized adhering to the principles of ALARA. CT DOSE: 614.27 mGy.cm COMPARISON: Head CT 01/18/2021 FINDINGS: No acute intracranial hemorrhage, midline shift, intracranial mass, hydro cephalus, territorial ischemia or abnormal extra-axial collection. Age-related involutional changes with ex vacuo ventriculomegaly. White matter hypodensities suggest chronic microvascular ischemic disease. Cerebral vascular calcifications. The calvarium is intact. There is a sessile cutaneous lesion of the right temporal scalp on image 15 measuring 1.9 cm. The paranasal sinuses, mastoid air cells, and middle ear cavities are clear. IMPRESSION: No acute intracranial abnormality. ACT 112: Negative or not required by law. The above report was generated using voice recognition software. It may contain grammatical, syntax or spelling errors. Electronically signed by: Brandt Seo M.D. 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
[2021-12-23] MEDS ORDERED: METOPROLOL TARTRATE 1 MG/ML VIAL IV STA (18:53)
[2021-12-23] MEDS ORDERED: LORazepam 2 MG/1 ML VIAL IV STA ×2 (18:53→20:01)
[2021-12-23 19:50] LABS: Amphetamines+Metham, Urine Neg (Neg); Barbiturates, Urine Neg (Neg); Benzodiazepine, Urine Neg (Neg); Cocaine, Urine Neg (Neg); MDMA (Ecstacy), Urine Neg (Neg); Methadone, Urine Neg (Neg); Opiate, Urine Neg (Neg); Phencyclidine, Urine Neg (Neg)
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
[2021-12-23] MEDS ORDERED: POLYETHYLENE (MIRALAX) 17 GM PACK PO PRN (20:23)
[2021-12-23] MEDS ORDERED: ATIVAN IV ALCOHOL WITHDRAWL IV PRN (20:23)
[2021-12-23] MEDS ORDERED: ACETAMINOPHEN 325 MG TAB PO PRN (20:23)
[2021-12-23] MEDS ORDERED: ONDANSETRON INJ 2 MG/ML 2 ML VIAL IV PRN (20:23)
[2021-12-23] MEDS ORDERED: LORazepam 2 MG/1 ML VIAL IV PRN (20:23)
[2021-12-23] MEDS ORDERED: THIAMINE HCL 500 MG in SYRINGE 9 ML IV SCH (21:00)
--- NOTE | 2021-12-23 21:36 | Critical Care Consultation ---
Date of Consultation December 23, 2021 Assessment & Plan (1) Delirium tremens: Impression: 66-year-old male presents to the ICU and what appears to be alcohol withdrawal/delirium tremens requiring IV Ativan and is currently restrained. Neuro - Encephalopathypatient with history of alcohol abuse presents to the ICU what appears to be delirium tremens. Unknown when patient's last drink was as he is currently incoherent/confused. He did state that he normally drinks beer and liquor. -Continue with MALGORZATA S protocol. If progresses to refractory DTs will add Precedex drip. -CT head without acute intracranial process -Ammonia within normal limits. UDS negative. EtOH negative -Continue thiamine, cannot rule out Warnicke's encephalopathy -Received banana bag in ED. Continue folate, multivitamin -Seizure precautions protocol -Would encourage sustaining from alcohol use in the future Cardiac - Tachycardiapatient with sinus tachycardia. Troponin pending. Likely in the setting of alcohol withdrawal. Continuous monitor on telemetry Hypertensive urgencypatient with history of hypertension and current systolic blood pressures greater than 200. Unknown if patient is compliant with medications -We will continue to treat with IV labetalol for now. May consider nicardipine drip if unresponsive. Suspect that treating underlying alcohol withdrawal will likely improve blood pressure as well. Respiratory - No history of pulmonary disease and currently maintaining oxygen saturations on room air without labored breathing. Monitor on continuous pulse ox GI - Transaminitismild, likely secondary to fatty liver disease versus cirrhosis in the setting of alcohol abuse and hepatitis C. Reportedly declined treatment in 2019 for hep C. -Follow-up liver ultrasound -Ammonia within normal limits -Trend LFTs RENAL/LYTES - Creatinine within normal limits. Monitor routine BMPs and replete electrolytes as indicated - Strict I's and O's ENDO - No history of diabetes or thyroid disease ICU hyperglycemic protocol HEME - H&H stable, monitor routine CBCs ID - Notification for infectious process at this time LINES/IV ACCESS - Peripheral IVs DVT PROPHYLAXIS - SCDs, Lovenox Thank you for allowing us to participate in the care of this patient. Please re nickie to my attending physician's documentation for any further recommendations. (2) Encephalopathy: (3) Alcohol dependence: (4) Hypertension: (5) Hypertensive urgency: (6) Hepatitis C: History of Present Illness Attending Physician: Ramone Tony History of Present Illness Patient is a 66-year-old male with past medical history of alcohol abuse, hepatitis C, depression, hypertension who presented to the emergency department via EMS earlier this afternoon after calling 911 on himself, while experiencing delusions/hallucinations. In the emergency department patient was found to be severely hypertensive with systolic blood pressures in the 200s, delirious and c onfused and restless with tremors. CT of the head negative for acute intracranial process. Patient is currently being treated for alcohol withdrawal and hypertensive urgency. He was unresponsive to IV Ativan in the ED is now being transferred to the ICU for further management at this time. On arrival to the ICU the patient is confused, restless, and limited participation in exam. He currently denies headache, dizziness, chest pain, shortness of breath, abdominal pain, nausea or vomiting, sore throat, visual changes. Currently giving additional IV Ativan per MALGORZATA S protocol. If persist with refractory DTs will likely add Precedex drip in addition to IV Ativan. Allergies Allergy/AdvReac Type Severity Reaction Status Date / Time bee venom protein (honey bee) AdvReac Severe Anaphylaxis Unverified 12/23/21 15:51 Home Medications Medication Instructions Recorded Confirmed Type No Known Home Medications 12/23/21 12/23/21 History Patient History Medical History Alcohol dependence (06/08/11) Bee sting allergy Depression (06/08/11) Hepatitis C Hypertension Marijuana use Surgical History Status post hernia repair Status post knee surgery Family History Father Diabetes Hypertension Mother Breast cancer Denies family history of Ovarian cancer Prostate cancer Myocardial infarction Colorectal cancer Social History Smoking Status: Current some day smoker Hx Alcohol Use: Yes Alcohol type: beer and hard liquor Hx Substance Use: Yes Preferred Language: [place] Visual Impairment: No Limitations Hearing Ability: Normal marital status: Single Current Living Situation: Alone current occupational status: retired Feels Safe at Home: No Childhood Exposure to Second-Hand Smoke: No Dental Care, Regularly: Yes Physical Activity Frequency: Does not Exercise Seatbelt Use: always Review of Systems Review of Systems: All systems reviewed & are unremarkable except as noted in HPI & below and Unobtainable due to cognitive status Physical Exam Constitutional: + altered mental status and + diaphoretic; + uncooperative Eyes: PERRL, conjunctivae normal, anicteric sclerae ENMT: external ear and nose normal, oropharynx normal Neck: trachea midline, no thyromegaly Respiratory: normal respiratory effort, lungs clear to auscultation Cardiovascular: Rate/Rhythm: regular rate and + tachycardic Heart Sounds: normal S1 and normal S2 Vessels: no JVD Extremities: no edema Gastrointestinal (Abdomen): normal bowel sounds, soft, nontender, no hepatosplenomegaly Musculoskeletal: no cyanosis or clubbing, extremities motor strength 5/5 Skin: no rashes, warm and dry Neurologic: PERRL, EOMI, accommodation nl, no face palsy, no dysarthria Psychiatric: Orientation: oriented to person; + not oriented to place, + not oriented to time and + uncooperative Apperance: + disheveled Eye Contact: + poor eye contact Mood: + anxious mood Thought Process: + incoherent thought process Results & Data Results & Data ([facility] [place]) Vital Signs (Past 12 Hours) Vital Signs Temp Pulse Resp BP Pulse Ox 12/23/21 21:29 37.7 C H 24 12/23/21 21:04 37 C 98 H 18 189/99 H 96 12/23/21 19:20 118 H 192/128 H 12/23/21 18:20 18 12/23/21 18:10 116 H 25 H 12/23/21 18:00 100 H 17 12/23/21 17:50 87 17 12/23/21 17:40 105 H 20 12/23/21 17:38 111 H 22 240/141 H 12/23/21 17:30 93 H 25 H 12/23/21 17:20 94 H 20 12/23/21 17:10 93 H 21 12/23/21 17:00 102 H 19 12/23/21 16:57 108 H 17 154/115 H 12/23/21 16:30 91 H 18 12/23/21 16:00 84 17 12/23/21 15:30 91 H 16 12/23/21 15:00 84 15 12/23/21 14:51 85 12/23/21 14:06 81 19 12/23/21 13:37 78 15 96 12/23/21 12:11 36.7 C 95 H 18 210/115 H 96 Coding Level of Care Code 20049 Inpt Consult Level 3 Diagnoses Encephalopathy G93.40 Alcohol dependence F10.20 Hypertension I10 Hypertensive urgency I16.0 Delirium tremens F10.231 Hepatitis C B19.20
[2021-12-23] MEDS: LACTATED RINGER'S 1,000 ML IV SCH (21:43)
[2021-12-23] MEDS: ENOXAPARIN INJ 40 MG/0.4 ML SYR SQ SCH (22:16)
[2021-12-23] MEDS: FOLIC ACID 1 MG in SYRINGE 9.8 ML IV SCH (22:17)
[2021-12-23] MEDS: THIAMINE HCL 500 MG in SODIUM CHLORIDE 0.9% 50 ML IV SCH (22:19)
[2021-12-23] MEDS: LABETALOL HCL IV 5 MG/ML 20ML IV PRN (22:46)
[2021-12-23] MEDS: POTASSIUM CHLORIDE / WTR 10 MEQ/100 ML PLCT IV SCH (23:00)
[2021-12-24] MEDS: LORazepam 2 MG/1 ML VIAL IV PRN ×4 (00:25→15:55)
--- NOTE | 2021-12-24 06:02 | Electrocardiogram Report ---
Test Reason : Blood Pressure : / mmHG Vent. Rate : 091 BPM Atrial Rate : 091 BPM P-R Int : 142 ms QRS Dur : 094 ms QT Int : 406 ms P-R-T Axes : 029 067 013 degrees QTc Int : 499 ms Normal sinus rhythm Prolonged QT Abnormal ECG When compared with ECG of 18-JAN-2021 11:01, No significant change was found Confirmed by Kalyan Cline ([id number]) on 12/24/2021 6:02:02 AM Referred By: REFERRED SELF Confirmed By:Kalyan Cline
[2021-12-24 06:11] LABS: Basophils # (auto) 0.02 K/uL (0-0.2); Basophils % (auto) 0.4 %; Eosinophils # (auto) 0.12 K/uL (0-0.5); Eosinophils % (auto) 2.3 %; Hematocrit (blood only) 42.1 % (42-52); Hemoglobin 14.1 g/dL (14.0-18.0); Immature Granulocytes # (auto) 0.01 K/uL (0.00-0.02); Immature Granulocytes % (auto) 0.2 %; Lymphocytes # (auto) 1.43 K/uL (1.2-3.4); Lymphocytes % (auto) 26.8 %; Mean Corpuscular Hemoglobin 30.4 pg (25-34); Mean Corpuscular Hgb Conc 33.5 g/dL (32-36); Mean Corpuscular Volume 90.7 fL (80-100); Mean Platelet Volume 12.3 fL (7.4-10.4); Monocytes # (auto) 0.59 K/uL (0.11-0.59); Monocytes % (auto) 11.1 %; Neutrophils # (auto) 3.16 K/uL (1.4-6.5); Neutrophils % (auto) 59.2 %; Platelet Count 151 K/uL (130-400); RDW Coefficient of Variation 14.6 % (11.5-14.5); RDW Standard Deviation 48.6 fL (36.4-46.3); Red Blood Count 4.64 M/uL (4.7-6.1); White Blood Count 5.33 K/uL (4.8-10.8)
[2021-12-24 06:19] LABS: Prothrombin Time 10.9 Seconds (9.0-12.0)
[2021-12-24] MEDS: LABETALOL HCL IV 5 MG/ML 20ML IV PRN ×3 (06:29→23:49)
[2021-12-24 06:35] LABS: Albumin Globulin Ratio 1.1 (0.9-2); Albumin Level 3.9 gm/dl (3.4-5.0); BUN Creatinine Ratio 13.2 (10-20); Bilirubin Direct 0.4 mg/dl (0-0.2); Bilirubin,Total 1.4 mg/dl (0.2-1.0); Calcium 9.1 mg/dl (8.5-10.1); Creatinine Clr Calc Pharmacy 104.6 ml/min; Est GFR (African American) 109.4 ml/min; Est GFR (Non-African American) 94.4 ml/min; Globulin 3.7 gm/dl (2.5-4.0); Magnesium 1.8 mg/dl (1.7-2.4); Potassium 3.5 mmol/L (3.5-5.1); Total Protein 7.6 gm/dl (6.0-8.3)
[2021-12-24] MEDS ORDERED: STAT IV Infusion **Titration per Protocol STA (07:35)
[2021-12-24] MEDS: FOLIC ACID 1 MG in SYRINGE 9.8 ML IV SCH (08:12)
[2021-12-24] MEDS: THIAMINE HCL 500 MG in SODIUM CHLORIDE 0.9% 50 ML IV SCH ×3 (08:13→20:18)
[2021-12-24] MEDS: LACTATED RINGER'S 1,000 ML IV SCH (08:14)
[2021-12-24] MEDS: dexMEDEtomidine 200 MCG/50 ML BAG IV SCH ×4 (08:18→23:44)
[2021-12-24] MEDS: MAGNESIUM SULFATE / D5W 1 GM/100 ML BAG IV SCH ×2 (08:29→10:25)
[2021-12-24] MEDS: POTASSIUM CHLORIDE / WTR 10 MEQ/100 ML PLCT IV SCH ×5 (08:29→11:38)
--- NOTE | 2021-12-24 09:09 | Ultrasound Report ---
US liver Limited abdomen CLINICAL HISTORY: transemanitis. COMPARISON: None. TECHNIQUE: Multiple grayscale and color images of the right upper quadrant of the abdomen. FINDINGS: This is a limited portable examination. The patient was confused and could not cooperate. Pancreas: The imaged portion of the pancreas is within normal limits with no focal mass or peripancre atic fluid collection identified. Liver: Liver is mildly enlarged with increased echogenicity characteristic of fatty infiltration. It measures 18 cm in the axillary margin. There is no evidence for a focal mass. There is no intrahepati c biliary duct dilatation. Gallbladder: The gallbladder is distended with cholelithiasis. There is no evidence for wall thickeni ng or pericholecystic edema. Common Bile Duct: (CBD): It is normal in size measuring 2 mm Inferior Vena Cava (IVC): The imaged IVC is patent. Right kidney: There is no evidence for hydronephrosis, calculus or gross renal mass. The kidney is no rmal in size. IMPRESSION: 1. Limited examination as described. 2. Mild hepatomegaly with fatty infiltration. 3. Cholelithiasis. ACT 112: Negative or not required by law. Electronically signed by: Ty Toure M.D. 12/24/2021 9:06 AM
--- NOTE | 2021-12-24 10:29 | Critical Care Progress Note ---
Date of Service December 24, 2021 Assessment & Plan (1) Hypertensive urgency: (2) Delirium tremens: (3) Encephalopathy: (4) Hypertension: Plan: Impression: 66-year-old male presents to the ICU and what appears to be alcohol withdrawal/delirium tremens requiring IV Ativan and is currently restrained. Neuro - Metabolic encephalopathy -From delirium tremens -CT head without acute intracranial process -Ammonia within normal limits. UDS negative. EtOH negative -Continue thiamine, cannot rule out Warnicke's encephalopathy - Continue folate -Seizure precautions protocol Cardiac - Tachycardia patient with sinus tachycardia. Likely in the setting of alcohol withdrawal. Continuous monitor on telemetry Hypertensive urgency Likely from DTs Continue with as needed hydralazine/labetalol to keep SBP less than 150 Respiratory - No history of pulmonary disease and currently maintaining oxygen saturations on room air without labored breathing. Monitor on continuous pulse ox GI - Transaminitismild, likely secondary to fatty liver disease versus cirrhosis in the setting of alcohol abuse and hepatitis C. Reportedly declined treatment in 2019 for hep C. -Liver ultrasound unremarkable -Ammonia within normal limits -Discriminant factor negative. No indication for steroids RENAL/LYTES - Creatinine within normal limits. Monitor routine BMPs and replete electrolytes as indicated - Strict I's and O's ENDO - No history of diabetes or thyroid disease ICU hyperglycemic protocol HEME - H&H stable, monitor routine CBCs ID - Notification for infectious process at this time --Prophylaxis VTE: Lovenox GI: None Lines: Peripheral ultrasound-guided Diet: Cardiac low-sodium Plan: In/out: +1518, no measurement of urine output At the time of examination patient was very restless, his systolic blood pressure was in the 180s. He has gotten total 11 mg of Ativan overnight. Is able to not follow any commands. He answers simple questions. I will start the patient on Precedex drip. Ativan 3 mg every 6 hours, continue with as needed Ativan on top of that based on CIWA score Aspiration precautions. Hypokalemia being replaced There is no improvement in patient's restlessness with Precedex drip plan plan will be to intubate Please note the above document was generated using voice recognition software. It may contain grammatical, syntax or spelling errors.Any formal questions or concerns about the content, text or information contained within the body of this dictation should be directly addressed to the provider for clarification. Admission and Anticipated Discharge Date Admission Date: December 23, 2021 Subjective Patient seen and examined at bedside. Patient was restless He was able to follow simple commands but not able to answer any questions His heart rate was in the 100s. With having active visual hallucinations. Systolic blood pressure was in 180s. Denies any nausea or vomiting. No headache. Review of Systems Review of Systems: All systems reviewed & are unremarkable except as noted in Subjective Physical Exam Physical Exam: Constitutional: No acute distress HEENT: EOMI, PERRLA Respiratory system: Decreased antibiotic, no wheeze, rhonchi, positive crackles bilaterally lower lobes CVS: S1-S2 positive, no murmurs or gallops Abdomen: Soft, nontender, nondistended, positive bowel sounds x4 Extremities: +2 pulses bilaterally radialis/ dorsalis pedis, no cyanosis, no edema Neuro: Awake oriented to only self Psych: Restless mood and affect G/U: No Young Skin: no rashes, warm and dry Lymphatic: no cervical or axillary lymphadenopathy Results & Data Results & Data ([facility]) Vital Signs (Past 12 Hours) Vital Signs Temp Pulse Pulse Resp BP BP Pulse Ox 12/24/21 10:00 83 30 H 114/63 93 12/24/21 09:21 87 15 111/67 91 12/24/21 09:00 94 H 21 93 12/24/21 08:50 98 H 23 117/53 L 95 12/24/21 08:19 94 H 22 168/111 H 96 12/24/21 08:00 94 H 19 93 12/24/21 07:30 91 H 16 187/127 H 94 12/24/21 07:00 36.8 C 96 H 22 94 12/24/21 06:49 37.1 C 98 H 15 181/138 H 93 12/24/21 06:15 37.1 C 100 H 18 185/123 H 94 12/24/21 06:00 101 H 25 H 188/102 H 93 12/24/21 04:00 36.8 C 80 20 128/80 94 12/24/21 03:00 83 13 153/81 H 94 12/24/21 02:48 83 12/24/21 02:00 86 17 156/82 H 95 12/24/21 01:32 91 H 123/85 12/24/21 01:24 37 C 91 H 17 179/109 H 93 12/23/21 23:09 37.4 C 99 H 100 H 20 145/113 H 145/113 H 94 12/23/21 23:00 99 H 21 93 12/23/21 22:36 37.4 C 101 H 16 206/132 H 93 12/23/21 22:34 103 H 21 206/132 H 93 Laboratory Results 12/24/21 05:55 12/24/21 05:55 Coding Level of Care Code Critical Care 1st 30-74 mins Diagnoses Hypertensive urgency I16.0 Delirium tremens F10.231 Encephalopathy G93.40 Hypertension I10 Time Spent (min) 42
--- NOTE | 2021-12-24 10:43 | Hospitalist Progress Note ---
Date of Service December 24, 2021 Assessment & Plan (1) Delirium tremens: Plan: Clinical picture c/w severe DTs. Tachycardia, severe HTN, tremors, severe confusion/hallucinations, etc. Appreciate ICU attending assistance. Cont ativan IV. Cont IV precedex. Cont high-dose thiamine x 2 days, then once daily thereafter. IV fluids & supportive care. Labs in am. (2) Encephalopathy: Plan: Metabolic. severe DTs +/- Wernicke's encephalopathy. see #1 above re: Rx for DTs. For ?Wernicke's -- thiamine 500mg IV TID x 2 days, then daily thereafter. no evidence of any infectious process. check TSH, B12 level in am to be complete. head CT at admission with atrophy/ventriculomegaly but no ICH, CVA, etc. (3) Hypertension: Plan: At minimum his severe etoh withdrawal/DTs is contributing to this. Can't rule out essential HTN. IV beta angelita prn. May need standing beta angelita. Follow BPs. (4) Alcohol dependence: Plan: See above (5) Hepatitis C: Plan: Chronic, previously seen by ID in 2019 and was offered treatment, however declined at that time. Reportedly has received hep A and B vaccines. Has concurrent alcoholic hepatitis. Trend LFTs. Ammonia level on 12/23 was wnl. (6) Hypertensive urgency: Plan: Improved with Rx of DTs and receiving sedation (ativan/precedex). (7) Hypomagnesemia: Plan: replaced improved Plan: DVT proph - lovenox FEN - diet as tolerated, maintenance fluids, labs am will attempt to update pt's sister who is listed in chart as contact Admission and Anticipated Discharge Date Admission Date: December 23, 2021 Subjective events of overnight noted needed COPIOUS IV ativan upon admission to the ICU along with placement of b/l s oft mitts for safety (was pulling at IVs, etc) ultimately precedex infusion was started to maintain comfort and safety during my assessment he was soundly asleep/snoring ate very little for breakfast this am remains confused per nursing staff tele - NSR Review of Systems Review of Systems: Unobtainable due to cognitive status Physical Exam Physical Exam: gen - snoring, sleeping mouth - MMM neck - no JVD heart - RRR, s1 s2, no murmur lungs - CTA b/l abd - soft, NT, ND, BS+, liver edge palpable ext - no edema, pulses 2+ b/l Results & Data Results & Data ([facility]) Vital Signs (Past 12 Hours) Vital Signs Temp Pulse Pulse Resp BP BP Pulse Ox 12/24/21 10:00 83 30 H 114/63 93 12/24/21 09:21 87 15 111/67 91 12/24/21 09:00 94 H 21 93 12/24/21 08:50 98 H 23 117/53 L 95 12/24/21 08:19 94 H 22 168/111 H 96 12/24/21 08:00 94 H 19 93 12/24/21 07:30 91 H 16 187/127 H 94 12/24/21 07:00 36.8 C 96 H 22 94 12/24/21 06:49 37.1 C 98 H 15 181/138 H 93 12/24/21 06:15 37.1 C 100 H 18 185/123 H 94 12/24/21 06:00 101 H 25 H 188/102 H 93 12/24/21 04:00 36.8 C 80 20 128/80 94 12/24/21 03:00 83 13 153/81 H 94 12/24/21 02:48 83 12/24/21 02:00 86 17 156/82 H 95 12/24/21 01:32 91 H 123/85 12/24/21 01:24 37 C 91 H 17 179/109 H 93 12/23/21 23:09 37.4 C 99 H 100 H 20 145/113 H 145/113 H 94 12/23/21 23:00 99 H 21 93 Laboratory Results Laboratory Results - last 24 hr 12/23/21 12/23/21 12/24/21 14:00 22:30 00:00 WBC RBC Hgb Hct MCV MCH MCHC RDW Std Deviation RDW Coeff of [place] Plt Count MPV Immature Gran % (Auto) Neut % (Auto) Lymph % (Auto) [place] % (Auto) Eos % (Auto) Baso % (Auto) Neut # (Auto) Lymph # (Auto) [place] # (Auto) Eos # (Auto) Baso # (Auto) Immature Gran # (Auto) PT INR Sodium Potassium Chloride Carbon Dioxide Anion Gap BUN Creatinine Est Cr Clr Drug Dosing Est GFR ( Amer) Est GFR (Non-Af Amer) BUN/Creatinine Ratio Glucose POC Glucose 100 H Calcium Phosphorus Magnesium Total Bilirubin Direct Bilirubin AST ALT Alkaline Phosphatase Troponin I High Sens 8.1 Total Protein Albumin Globulin Albumin/Globulin Ratio Folate Urine Opiates Screen Neg Ur Methadone, Qual Neg Urine Barbiturates Neg Ur Phencyclidine (PCP) Neg U Amphetamin/Meth Scrn Neg MDMA (Ecstasy) Screen Neg U Benzodiazepines Scrn Neg Ur Cocaine Metabolite Neg U Marijuana (THC) Screen Neg 12/24/21 12/24/21 12/24/21 04:25 05:55 05:55 WBC 5.33 RBC 4.64 L Hgb 14.1 Hct 42.1 MCV 90.7 MCH 30.4 MCHC 33.5 RDW Std Deviation 48.6 H RDW Coeff of Dutch 14.6 H Plt Count 151 MPV 12.3 H Immature Gran % (Auto) 0.2 Neut % (Auto) 59.2 Lymph % (Auto) 26.8 [place] % (Auto) 11.1 Eos % (Auto) 2.3 Baso % (Auto) 0.4 Neut # (Auto) 3.16 Lymph # (Auto) 1.43 [place] # (Auto) 0.59 Eos # (Auto) 0.12 Baso # (Auto) 0.02 Immature Gran # (Auto) 0.01 PT 10.9 INR 1.0 Sodium Potassium Chloride Carbon Dioxide Anion Gap BUN Creatinine Est Cr Clr Drug Dosing Est GFR ( Amer) Est GFR (Non-Af Amer) BUN/Creatinine Ratio Glucose POC Glucose 96 Calcium Phosphorus Magnesium Total Bilirubin Direct Bilirubin AST ALT Alkaline Phosphatase Troponin I High Sens Total Protein Albumin Globulin Albumin/Globulin Ratio Folate Urine Opiates Screen Ur Methadone, Qual Urine Barbiturates Ur Phencyclidine (PCP) U Amphetamin/Meth Scrn MDMA (Ecstasy) Screen U Benzodiazepines Scrn Ur Cocaine Metabolite U Marijuana (THC) Screen 12/24/21 12/24/21 12/24/21 05:55 05:55 05:55 WBC RBC Hgb Hct MCV MCH MCHC RDW Std Deviation RDW Coeff of [place] Plt Count MPV Immature Gran % (Auto) Neut % (Auto) Lymph % (Auto) [place] % (Auto) Eos % (Auto) Baso % (Auto) Neut # (Auto) Lymph # (Auto) [place] # (Auto) Eos # (Auto) Baso # (Auto) Immature Gran # (Auto) PT INR Sodium 138 Potassium 3.5 Chloride 102 Carbon Dioxide 27 Anion Gap 9 BUN 10 Creatinine 0.76 Est Cr Clr Drug Dosing 104.6 Est GFR ( Amer) 109.4 Est GFR (Non-Af Amer) 94.4 BUN/Creatinine Ratio 13.2 Glucose 98 POC Glucose Calcium 9.1 Phosphorus 4.0 Magnesium 1.8 Total Bilirubin 1.4 H Direct Bilirubin 0.4 H AST 57 H ALT 64 H Alkaline Phosphatase 61 Troponin I High Sens Total Protein 7.6 Albumin 3.9 Globulin 3.7 Albumin/Globulin Ratio 1.1 Folate 19.25 Urine Opiates Screen Ur Methadone, Qual Urine Barbiturates Ur Phencyclidine (PCP) U Amphetamin/Meth Scrn MDMA (Ecstasy) Screen U Benzodiazepines Scrn Ur Cocaine Metabolite U Marijuana (THC) Screen 12/24/21 17:04 WBC RBC Hgb Hct MCV MCH MCHC RDW Std Deviation RDW Coeff of Dutch Plt Count MPV Immature Gran % (Auto) Neut % (Auto) Lymph % (Auto) [place] % (Auto) Eos % (Auto) Baso % (Auto) Neut # (Auto) Lymph # (Auto) [place] # (Auto) Eos # (Auto) Baso # (Auto) Immature Gran # (Auto) PT INR Sodium Potassium Chloride Carbon Dioxide Anion Gap BUN Creatinine Est Cr Clr Drug Dosing Est GFR ( Amer) Est GFR (Non-Af Amer) BUN/Creatinine Ratio Glucose POC Glucose 99 Calcium Phosphorus Magnesium Total Bilirubin Direct Bilirubin AST ALT Alkaline Phosphatase Troponin I High Sens Total Protein Albumin Globulin Albumin/Globulin Ratio Folate Urine Opiates Screen Ur Methadone, Qual Urine Barbiturates Ur Phencyclidine (PCP) U Amphetamin/Meth Scrn MDMA (Ecstasy) Screen U Benzodiazepines Scrn Ur Cocaine Metabolite U Marijuana (THC) Screen PG Care Time/CCT Total # of Minutes Spent Total Time Spent with Patient: Total time spent is greater than 50% in coordination of care (as documented) at patient's floor/unit and/or counseling patient: Coding Level of Care Code 04243 Subseq Hosp Care Lvl 2 Diagnoses Encephalopathy G93.40 Hypertension I10 Alcohol dependence F10.251 Complication of substance-induced condition: with hallucinations Substance use status: alcohol-induced psychotic disorder Hepatitis C B19.20 Delirium tremens F10.231 Hypertensive urgency I16.0 Hypomagnesemia E83.42 (1) Alcohol dependence Complication of substance-induced condition: with hallucinations Substance use status: alcohol-induced psychotic disorder Qualified Code(s): 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
[2021-12-24] MEDS: LORazepam 2 MG/1 ML VIAL IV SCH ×2 (12:43→19:36)
[2021-12-24] MEDS: ENOXAPARIN INJ 40 MG/0.4 ML SYR SQ SCH (19:35)
[2021-12-25] MEDS: LORazepam 2 MG/1 ML VIAL IV SCH ×5 (00:12→23:37)
[2021-12-25] MEDS: dexMEDEtomidine 200 MCG/50 ML BAG IV SCH ×4 (03:15→15:20)
[2021-12-25] MEDS: LABETALOL HCL IV 5 MG/ML 20ML IV PRN ×2 (05:01→07:40)
[2021-12-25 06:02] LABS: Basophils # (auto) 0.02 K/uL (0-0.2); Basophils % (auto) 0.4 %; Eosinophils # (auto) 0.16 K/uL (0-0.5); Eosinophils % (auto) 2.9 %; Hematocrit (blood only) 43.1 % (42-52); Hemoglobin 14.6 g/dL (14.0-18.0); Immature Granulocytes # (auto) 0.01 K/uL (0.00-0.02); Immature Granulocytes % (auto) 0.2 %; Lymphocytes # (auto) 1.15 K/uL (1.2-3.4); Mean Corpuscular Hemoglobin 30.8 pg (25-34); Mean Corpuscular Hgb Conc 33.9 g/dL (32-36); Mean Corpuscular Volume 90.9 fL (80-100); Mean Platelet Volume 11.5 fL (7.4-10.4); Monocytes # (auto) 0.55 K/uL (0.11-0.59); Monocytes % (auto) 10.1 %; Neutrophils # (auto) 3.58 K/uL (1.4-6.5); Neutrophils % (auto) 65.4 %; Platelet Count 132 K/uL (130-400); RDW Coefficient of Variation 14.4 % (11.5-14.5); RDW Standard Deviation 48.2 fL (36.4-46.3); Red Blood Count 4.74 M/uL (4.7-6.1); White Blood Count 5.47 K/uL (4.8-10.8)
[2021-12-25 06:20] LABS: Albumin Level 3.8 gm/dl (3.4-5.0); Bilirubin Direct 0.3 mg/dl (0-0.2); Calcium 9.1 mg/dl (8.5-10.1); Creatinine Clr Calc Pharmacy 102.3 ml/min; Est GFR (African American) 108.8 ml/min; Est GFR (Non-African American) 93.9 ml/min; Magnesium 1.8 mg/dl (1.7-2.4); Phosphorus 4.3 mg/dl (2.5-4.9); Potassium 3.6 mmol/L (3.5-5.1); Total Protein 7.4 gm/dl (6.0-8.3)
--- NOTE | 2021-12-25 08:03 | Critical Care Progress Note ---
Date of Service December 25, 2021 Assessment & Plan (1) Hypertensive urgency: (2) Delirium tremens: (3) Encephalopathy: (4) Hypertension: Plan: Impression: 66-year-old male presents to the ICU and what appears to be alcohol withdrawal/delirium tremens requiring IV Ativan and is currently restrained. Neuro - Metabolic encephalopathy -From delirium tremens -CT head without acute intracranial process -Ammonia within normal limits. UDS negative. EtOH negative -Continue thiamine, cannot rule out Wernicke's encephalopathy - Continue folate -Seizure precautions protocol Cardiac - Hypertensive urgency Likely from DTs Continue with as needed hydralazineto keep SBP less than 150 Metoprolol 5 mg every 6hrs Respiratory - No history of pulmonary disease and currently maintaining oxygen saturations on room air without labored breathing. Monitor on continuous pulse ox GI - Transaminitismild, likely secondary to fatty liver disease versus cirrhosis in the setting of alcohol abuse and hepatitis C. Reportedly declined treatment in 2019 for hep C. -Liver ultrasound unremarkable -Ammonia within normal limits -Discriminant factor negative. No indication for steroids RENAL/LYTES - Creatinine within normal limits. Monitor routine BMPs and replete electrolytes as indicated - Strict I's and O's ENDO - No history of diabetes or thyroid disease ICU hyperglycemic protocol HEME - H&H stable, monitor routine CBCs ID - Notification for infectious process at this time --Prophylaxis VTE: Lovenox GI: None Lines: Peripheral ultrasound-guided Diet: Cardiac low-sodium Plan: In/out: +967, urine output 250 Patient 0.5 mg of Precedex He did not require any extra dose of Ativan. I would like the Precedex dose to be on the lower side and if needed we will increase the lorazepam to 4 mg every 6. Continue aspiration precautions. Potassium being replaced along with magnesium We will start the patient on D5 half NS I have personally spent 37 minutes of critical care time in the direct management of this patient. This is a life/limb threatening event. This includes time spent evaluating patient, direct bedside care, chart review, placing orders, interpretation of diagnostic studies, discussion with consultants, patient, and family members, as well as other required patient management activities. This time is exclusive of all separately billable procedures, and teaching time and separate from and in addition to any other critical care service time. Please note the above document was generated using voice recognition software. It may contain grammatical, syntax or spelling errors. Admission and Anticipated Discharge Date Admission Date: December 23, 2021 Subjective Patient seen and examined at bedside. No acute distress. Patient was on 0.5 mg of Precedex Patient has bouts of agitation but he does requires consoling to calm down and he does have follow it Denies any headache, no chest pain. No nausea or vomiting Review of Systems Review of Systems: All systems reviewed & are unremarkable except as noted in Subjective Physical Exam Physical Exam: Constitutional: No acute distress HEENT: EOMI, PERRLA Respiratory system: Decreased antibiotic, no wheeze, rhonchi, positive crackles bilaterally lower lobes CVS: S1-S2 positive, no murmurs or gallops Abdomen: Soft, nontender, nondistended, positive bowel sounds x4 Extremities: +2 pulses bilaterally radialis/ dorsalis pedis, no cyanosis, no edema Neuro: Awake oriented to only self Psych: Restless mood and affect G/U: [place] Young Skin: no rashes, warm and dry Lymphatic: no cervical or axillary lymphadenopathy Results & Data Results & Data ([facility]) Vital Signs (Past 12 Hours) Vital Signs Temp Pulse Resp BP Pulse Ox 12/25/21 06:00 79 18 179/111 H 92 12/25/21 05:31 79 19 186/124 H 92 12/25/21 05:30 77 18 92 12/25/21 05:00 79 19 197/109 H 93 12/25/21 04:30 80 18 177/109 H 92 12/25/21 04:00 81 19 168/105 H 92 12/25/21 03:30 79 18 167/104 H 92 12/25/21 03:00 77 19 94 12/25/21 02:30 36.3 C L 82 19 174/106 H 93 12/25/21 02:00 79 19 93 12/25/21 01:30 79 19 91 12/25/21 01:00 79 20 178/109 H 93 12/25/21 00:49 81 24 194/104 H 91 12/25/21 00:30 78 22 94 12/25/21 00:29 81 18 209/124 H 92 12/25/21 00:25 80 20 212/123 H 92 12/25/21 00:23 78 19 214/120 H 92 12/25/21 00:00 93 H 18 93 12/24/21 23:41 90 22 190/115 H 95 12/24/21 23:39 90 16 166/131 H 92 12/24/21 23:31 91 H 24 194/154 H 95 12/24/21 23:30 36.4 C 90 18 95 12/24/21 23:15 81 12/24/21 23:00 79 18 161/102 H 90 12/24/21 22:30 74 20 159/91 H 90 12/24/21 22:00 77 20 166/101 H 91 12/24/21 21:30 77 21 12/24/21 21:00 75 39 H 88 L 12/24/21 20:30 84 22 90 Laboratory Results 12/25/21 05:36 12/25/21 05:36 Coding Level of Care Code Critical Care 1st 30-74 mins Diagnoses Hypertensive urgency I16.0 Delirium tremens F10.231 Encephalopathy G93.40 Hypertension I10 Time Spent (min) 38
[2021-12-25] MEDS ORDERED: MAGNESIUM SULFATE / D5W 1 GM/100 ML BAG IV ONE (08:18)
[2021-12-25] MEDS ORDERED: hydrALAZINE HCL 20 MG/ML VIAL ONE (08:50)
[2021-12-25] MEDS: POTASSIUM CHLORIDE / WTR 10 MEQ/100 ML PLCT IV SCH ×3 (09:39→12:00)
[2021-12-25] MEDS: THIAMINE HCL 500 MG in SODIUM CHLORIDE 0.9% 50 ML IV SCH ×2 (09:40→14:03)
[2021-12-25] MEDS: FOLIC ACID 1 MG in SYRINGE 9.8 ML IV SCH (09:40)
[2021-12-25] MEDS: LORazepam 2 MG/1 ML VIAL IV PRN ×2 (11:08→19:03)
[2021-12-25] MEDS: D5W AND 1/2NSS 1,000 ML IV SCH (11:10)
[2021-12-25] MEDS: METOPROLOL TARTRATE 1 MG/ML VIAL IV SCH ×3 (12:00→23:36)
[2021-12-25] MEDS: hydrALAZINE HCL 20 MG/ML VIAL IV PRN (15:21)
--- NOTE | 2021-12-25 21:12 | Hospitalist Progress Note ---
Date of Service December 25, 2021 Assessment & Plan (1) Delirium tremens: Plan: Ongoing. Due to copious IV ativan & precedex cont to require ICU level of care. Appreciate ICU attending assistance. Cont ativan IV. Cont IV precedex. s/p high-dose thiamine x 2 days, now once daily. Cont IV fluids & supportive care. Labs in am. (2) Encephalopathy: Plan: Metabolic. severe DTs +/- Wernicke's encephalopathy. see #1 above re: Rx for DTs. For ?Wernicke's -- s/p thiamine 500mg IV TID x 2 days, now daily. no evidence of any infectious process. TSH, B12 levels both wnl. head CT at admission with atrophy/ventriculomegaly but no ICH, CVA, etc. when #1 has resolved will need thorough evaluation of mental status; consider psych eval at that time, too, given the collateral information from his sister today. (3) Hypertension: Plan: At minimum his severe etoh withdrawal/DTs is contributing to this. Can't rule out essential HTN. IV beta angelita scheduled. IV hydralazine prn. Follow BPs. (4) Alcohol dependence: Plan: See above (5) Hepatitis C: Plan: Chronic, previously seen by ID in 2019 and was offered treatment, however declined at that time. Reportedly has received hep A and B vaccines. Has concurrent alcoholic hepatitis but ast/alt improving. Ammonia level on 12/23 was wnl. Patient with prior h/o drug abuse and has been incarcerated for illicit drugs in the past. (6) Hypertensive urgency: Plan: Improved with Rx of DTs and receiving sedation (ativan/precedex) along with IV BP meds as above. (7) Hypomagnesemia: Plan: replaced resolved Plan: DVT proph - lovenox FEN - diet as tolerated, maintenance fluids, labs am extensive near-30 minute discussion with pt's sister by phone today (Bonnie Morris -see "subjective" portion of note) once DTs are complete will need intensive social work assistance to determine disposition post-discharge Admission and Anticipated Discharge Date Admission Date: December 23, 2021 Subjective events of overnight reviewed remains on precedex remains on scheduled IV ativan staff report that attempts to wean precedex leads to significant agitation he is still requiring soft mitts on both hands he has had no dietary intake during my assessment he only opened his eyes briefly he said several times "I feel better" but could not provide any other meaningful history or ROS this evening I spoke with Bonnie Alexandra ([phone]) 25 min long conversation by phone Bonnie is Arvind' sister Bonnie lives in [place] Bonnie reports that she and Arvind have a brother named Guicho who lives in [place] Arvind has a daughter named Elsa but they are estranged Bonnie reports that Arvind has been disabled and has not worked in many years He was living in a home by himself in [facility] [place] until 2020 [place] He sold that house in 2020 He moved to [facility] but he would not provide an address to Bonnie or Guicho [place] reports that Arvind has been in correctional facilities many times over the years for DUIs, illicit drugs, etc He even had federal charges pressed against him in the past About 1 week ago Arvind had called Bonnie Nicole states that he was thinking very clearly and that he sounded sober on the telephone Arvind told her that he wanted to leave [place] and move to [place] Arvind has never attended drug/alcohol rehabilitation Bonnie also mentioned that many times over the years the patient self-reported hallucinations Further, Bonnie states that at various times in the past Arvind seemed "out of it" when she saw him in person Finally, Bonnie denies that Arvind has ever been diagnosed with a primary psychiatric condition (bipolar, schizophrenia, etc) He has never been hospitalized in a psychiatric hospital He did have psychological testing years ago -- this revealed that Arvind had Learning Disabilities Review of Systems Review of Systems: Unobtainable due to mental health condition and Unobtainable due to cognitive status Physical Exam Physical Exam: gen - snoring, sleeping, opens eyes only briefly to his name being called mouth - MM mildly dry neck - no JVD heart - RRR, s1 s2, no murmur lungs - CTA b/l abd - soft, NT, ND, BS+, liver edge palpable ext - no edema, pulses 2+ b/l; soft mitts on hands in place Results & Data Results & Data ([facility]) Vital Signs (Past 12 Hours) Vital Signs Temp Pulse Resp BP Pulse Ox 12/25/21 18:23 85 143/92 H 12/25/21 16:31 189/102 H 12/25/21 16:00 37.0 C 86 18 104/75 93 12/25/21 15:00 85 15 176/113 H 94 12/25/21 14:00 37.0 C 83 19 143/94 H 92 12/25/21 13:00 91 H 21 180/113 H 93 12/25/21 12:00 36.8 C 91 H 22 163/104 H 94 12/25/21 11:00 94 H 21 176/98 H 94 12/25/21 10:00 36.8 C 95 H 23 148/95 H 93 12/25/21 09:30 112/74 Laboratory Results Laboratory Results - last 24 hr 12/25/21 12/25/21 12/25/21 00:42 05:36 05:36 WBC RBC Hgb Hct MCV MCH MCHC RDW Std Deviation RDW Coeff of Dutch Plt Count MPV Immature Gran % (Auto) Neut % (Auto) Lymph % (Auto) [place]oll[place] % (Auto) Eos % (Auto) Baso % (Auto) Neut # (Auto) Lymph # (Auto) [place] # (Auto) Eos # (Auto) Baso # (Auto) Immature Gran # (Auto) Sodium 139 Potassium 3.6 Chloride 104 Carbon Dioxide 26 Anion Gap 9 BUN 10 Creatinine 0.77 Est Cr Clr Drug Dosing 102.3 Est GFR ( Amer) 108.8 Est GFR (Non-Af Amer) 93.9 BUN/Creatinine Ratio 13.0 Glucose 112 H POC Glucose 112 H Calcium 9.1 Phosphorus 4.3 Magnesium 1.8 Total Bilirubin 1.0 Direct Bilirubin 0.3 H AST 45 H ALT 57 H Alkaline Phosphatase 59 Total Protein 7.4 Albumin 3.8 Vitamin B12 563 TSH 12/25/21 12/25/21 12/25/21 05:36 05:36 13:19 WBC 5.47 RBC 4.74 Hgb 14.6 Hct 43.1 MCV 90.9 MCH 30.8 MCHC 33.9 RDW Std Deviation 48.2 H RDW Coeff of Dutch 14.4 Plt Count 132 MPV 11.5 H Immature Gran % (Auto) 0.2 Neut % (Auto) 65.4 Lymph % (Auto) 21.0 Nuckolls % (Auto) 10.1 Eos % (Auto) 2.9 Baso % (Auto) 0.4 Neut # (Auto) 3.58 Lymph # (Auto) 1.15 L [place]olls # (Auto) 0.55 Eos # (Auto) 0.16 Baso # (Auto) 0.02 Immature Gran # (Auto) 0.01 Sodium Potassium Chloride Carbon Dioxide Anion Gap BUN Creatinine Est Cr Clr Drug Dosing Est GFR ( Amer) Est GFR (Non-Af Amer) BUN/Creatinine Ratio Glucose POC Glucose 119 H Calcium Phosphorus Magnesium Total Bilirubin Direct Bilirubin AST ALT Alkaline Phosphatase Total Protein Albumin Vitamin B12 TSH 3.366 12/25/21 18:07 WBC RBC Hgb Hct MCV MCH MCHC RDW Std Deviation RDW Coeff of Dutch Plt Count MPV Immature Gran % (Auto) Neut % (Auto) Lymph % (Auto) [place]olls % (Auto) Eos % (Auto) Baso % (Auto) Neut # (Auto) Lymph # (Auto) [place]olls # (Auto) Eos # (Auto) Baso # (Auto) Immature Gran # (Auto) Sodium Potassium Chloride Carbon Dioxide Anion Gap BUN Creatinine Est Cr Clr Drug Dosing Est GFR ( Amer) Est GFR (Non-Af Amer) BUN/Creatinine Ratio Glucose POC Glucose 104 H Calcium Phosphorus Magnesium Total Bilirubin Direct Bilirubin AST ALT Alkaline Phosphatase Total Protein Albumin Vitamin B12 TSH PG Care Time/CCT Total # of Minutes Spent Total Time Spent with Patient: Total time spent is greater than 50% in coordination of care (as documented) at patient's floor/unit and/or counseling patient: Coding Level of Care Code 99043 Subseq Hosp Care Lvl 3 Diagnoses Delirium tremens F10.231 Encephalopathy G93.40 Hypertension I10 Alcohol dependence F10.251 Complication of substance-induced condition: with hallucinations Substance use status: alcohol-induced psychotic disorder Hepatitis C B19.20 Hypertensive urgency I16.0 Hypomagnesemia E83.42 (1) Alcohol dependence Complication of substance-induced condition: with hallucinations Substance use status: alcohol-induced psychotic disorder Qualified Code(s): 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
[2021-12-25] MEDS: ENOXAPARIN INJ 40 MG/0.4 ML SYR SQ SCH (22:03)
[2021-12-26] MEDS: D5W AND 1/2NSS 1,000 ML IV SCH ×2 (03:19→15:43)
[2021-12-26] MEDS: dexMEDEtomidine 200 MCG/50 ML BAG IV SCH ×4 (04:19→19:39)
[2021-12-26 06:13] LABS: Basophils # (auto) 0.02 K/uL (0-0.2); Basophils % (auto) 0.3 %; Eosinophils # (auto) 0.22 K/uL (0-0.5); Eosinophils % (auto) 3.2 %; Hematocrit (blood only) 44.2 % (42-52); Hemoglobin 14.7 g/dL (14.0-18.0); Immature Granulocytes # (auto) 0.02 K/uL (0.00-0.02); Immature Granulocytes % (auto) 0.3 %; Lymphocytes # (auto) 0.92 K/uL (1.2-3.4); Lymphocytes % (auto) 13.5 %; Mean Corpuscular Hemoglobin 30.7 pg (25-34); Mean Corpuscular Hgb Conc 33.3 g/dL (32-36); Mean Corpuscular Volume 92.3 fL (80-100); Mean Platelet Volume 12.7 fL (7.4-10.4); Monocytes # (auto) 0.87 K/uL (0.11-0.59); Monocytes % (auto) 12.7 %; Neutrophils # (auto) 4.79 K/uL (1.4-6.5); Platelet Count 143 K/uL (130-400); RDW Coefficient of Variation 14.4 % (11.5-14.5); RDW Standard Deviation 48.9 fL (36.4-46.3); Red Blood Count 4.79 M/uL (4.7-6.1); White Blood Count 6.84 K/uL (4.8-10.8)
[2021-12-26 06:36] LABS: Albumin Level 3.7 gm/dl (3.4-5.0); BUN Creatinine Ratio 15.6 (10-20); Bilirubin Direct 0.4 mg/dl (0-0.2); Bilirubin,Total 1.2 mg/dl (0.2-1.0); Calcium 9.2 mg/dl (8.5-10.1); Creatinine Clr Calc Pharmacy 102.3 ml/min; Est GFR (African American) 108.8 ml/min; Est GFR (Non-African American) 93.9 ml/min; Magnesium 1.7 mg/dl (1.7-2.4); Phosphorus 3.5 mg/dl (2.5-4.9); Potassium 3.9 mmol/L (3.5-5.1); Total Protein 7.4 gm/dl (6.0-8.3)
[2021-12-26] MEDS: METOPROLOL TARTRATE 1 MG/ML VIAL IV SCH ×4 (06:39→19:38)
[2021-12-26] MEDS: LORazepam 2 MG/1 ML VIAL IV SCH ×4 (06:39→19:38)
[2021-12-26] MEDS: FOLIC ACID 1 MG in SYRINGE 9.8 ML IV SCH (07:37)
[2021-12-26] MEDS: THIAMINE HCL 100 MG in SYRINGE 9 ML IV SCH (07:38)
[2021-12-26] MEDS: LABETALOL HCL IV 5 MG/ML 20ML IV PRN (07:43)
[2021-12-26] MEDS: LORazepam 2 MG/1 ML VIAL IV PRN ×3 (07:52→20:50)
[2021-12-26] MEDS: MAGNESIUM SULFATE / D5W 1 GM/100 ML BAG IV SCH ×2 (09:24→11:20)
[2021-12-26] MEDS: hydrALAZINE HCL 20 MG/ML VIAL IV PRN (09:34)
--- NOTE | 2021-12-26 11:15 | Critical Care Progress Note ---
Date of Service December 26, 2021 Assessment & Plan (1) Hypertensive urgency: (2) Delirium tremens: (3) Encephalopathy: (4) Hypertension: Plan: Impression: 66-year-old male presents to the ICU and what appears to be alcohol withdrawal/delirium tremens requiring IV Ativan and is currently restrained. Neuro - Metabolic encephalopathy -From delirium tremens -CT head without acute intracranial process -Ammonia within normal limits. UDS negative. EtOH negative -Continue thiamine, cannot rule out Wernicke's encephalopathy - Continue folate -Seizure precautions protocol Cardiac - Hypertensive urgency Likely from DTs Continue with as needed hydralazineto keep SBP less than 150 Metoprolol 5 mg every 4hrs Respiratory - No history of pulmonary disease and currently maintaining oxygen saturations on room air without labored breathing. Monitor on continuous pulse ox GI - Transaminitismild, likely secondary to fatty liver disease versus cirrhosis in the setting of alcohol abuse and hepatitis C. Reportedly declined treatment in 2019 for hep C. -Liver ultrasound unremarkable -Ammonia within normal limits -Discriminant factor negative. No indication for steroids RENAL/LYTES - Creatinine within normal limits. Monitor routine BMPs and replete electrolytes as indicated - Strict I's and O's ENDO - No history of diabetes or thyroid disease ICU hyperglycemic protocol HEME - H&H stable, monitor routine CBCs ID - Notification for infectious process at this time --Prophylaxis VTE: Lovenox GI: None Lines: Peripheral ultrasound-guided Diet: Cardiac low-sodium Plan: In/out: Positive for 72, urine output 1202 Patient still having active hallucinations. He required extra dose of Ativan 2 mg overnight Currently is getting 16 mg of Ativan in 24 hours scheduled. I will increase it to 18 mg by changing Ativan dosing to 3 mg every 4 hours. Continue with 2 mg Ativan as needed on top of that Precedex to be started only if not controlled with Ativan If there is any respiratory compromise we will intubate the patient. Continue with thiamine and folic acid Blood pressure has been on the higher side. I will give 5 mg of Toprol every 4 hours now. The blood pressure is still not controlled and I will start the patient on nicardipine drip. Patient unfortunately is not able to take anything by mouth because of encephalopathy 2 g of magnesium given to the patient I have personally spent 38 minutes of critical care time in the direct management of this patient. This is a life/limb threatening event. This includes time spent evaluating patient, direct bedside care, chart review, placing orders, interpretation of diagnostic studies, discussion with consultants, patient, and family members, as well as other required patient management activities. This time is exclusive of all separately billable procedures, and teaching time and separate from and in addition to any other critical care service time. Please note the above document was generated using voice recognition software. It may contain grammatical, syntax or spelling errors. Admission and Anticipated Discharge Date Admission Date: December 23, 2021 Subjective Patient seen and examined at bedside. No acute distress Overnight patient got multiple doses of labetalol He also got 2 mg extra of Ativan He was still actively hallucinating at the time of examination He has been off Precedex since last 2 hours Saturating 93 to 94% on room air Review of Systems Review of Systems: Unobtainable due to mental health condition Physical Exam Physical Exam: Constitutional: No acute distress HEENT: EOMI, PERRLA Respiratory system: Decreased antibiotic, no wheeze, rhonchi, positive crackles bilaterally lower lobes CVS: S1-S2 positive, no murmurs or gallops Abdomen: Soft, nontender, nondistended, positive bowel sounds x4 Extremities: +2 pulses bilaterally radialis/ dorsalis pedis, no cyanosis, no edema Neuro: Awake oriented to only self Psych: Restless mood and affect G/U: [place] Skin: no rashes, warm and dry Lymphatic: no cervical or axillary lymphadenopathy Results & Data Results & Data ([facility]) Vital Signs (Past 12 Hours) Vital Signs Temp Pulse Resp BP Pulse Ox 12/26/21 08:00 37 C 12/26/21 07:30 84 20 172/101 H 93 12/26/21 07:00 86 22 194/113 H 94 12/26/21 06:39 99 H 222/188 H 12/26/21 05:30 89 17 92 12/26/21 05:02 96 H 18 91 12/26/21 05:00 95 H 19 94 12/26/21 04:30 100 H 16 95 12/26/21 04:04 90 20 183/111 H 95 12/26/21 04:00 94 H 23 95 12/26/21 03:30 79 23 156/84 H 95 12/26/21 03:00 76 26 H 151/99 H 93 12/26/21 02:30 83 21 174/101 H 94 12/26/21 02:00 77 20 157/100 H 93 12/26/21 01:32 83 21 153/114 H 95 12/26/21 01:00 77 19 130/89 93 12/26/21 00:53 85 21 179/116 H 93 12/26/21 00:30 84 20 176/115 H 95 12/26/21 00:29 87 18 188/123 H 95 12/26/21 00:00 37 C 90 20 96 12/25/21 23:36 88 142/90 H Laboratory Results 12/26/21 05:54 12/26/21 05:54 Coding Level of Care Code Critical Care 1st 30-74 mins Diagnoses Hypertensive urgency I16.0 Delirium tremens F10.231 Encephalopathy G93.40 Hypertension I10 Time Spent (min) 38
--- NOTE | 2021-12-26 11:23 | Hospitalist Progress Note ---
Date of Service December 26, 2021 Assessment & Plan (1) Delirium tremens: Plan: Ongoing. Precedex drip has been weaned off. Ativan dose weaned modestly. Remains hypertensive - worse with agitation. s/p high-dose thiamine x 2 days, now once daily. Cont IV fluids & supportive care. Labs in am. Defer nutrition to ICU attending. Appreciate ICU support. (2) Encephalopathy: Plan: Metabolic. severe DTs +/- Wernicke's encephalopathy. see #1 above re: Rx for DTs. For ?Wernicke's -- s/p thiamine 500mg IV TID x 2 days, now daily. no evidence of any infectious process. wouldn't be unreasonable to check an RPR, lyme screen, etc. B1 level would be inaccurate due to copious supplementation given since admission. TSH, B12 levels both wnl. head CT at admission with atrophy/ventriculomegaly but no ICH, CVA, etc. when #1 has resolved will need thorough evaluation of mental status; consider psych eval at that time, too, given the collateral information from his sister. (3) Hypertension: Plan: At minimum his severe etoh withdrawal/DTs is contributing to this. Can't rule out essential HTN but he was not taking BP meds at home. Cont IV beta angelita scheduled. IV hydralazine prn. Follow BPs. (4) Alcohol dependence: Plan: See above (5) Hepatitis C: Plan: Chronic, previously seen by ID in 2019 and was offered treatment, however declined at that time. Reportedly has received hep A and B vaccines. Has concurrent alcoholic hepatitis but ast/alt are now close to normal. Ammonia level on 12/23 was wnl. Patient with prior h/o drug abuse and has been incarcerated for illicit drugs in the past. Would benefit from HIV testing once he is able to give consent for such. (6) Hypertensive urgency: Plan: Improved with Rx of DTs and receiving sedation along with IV BP meds as above. Labile BPs remain, however. Defer Rx to ICU attending. (7) Hypomagnesemia: Plan: replaced resolved Plan: DVT proph - lovenox FEN - cont maintenance fluids, labs am; nutrition? coresafe with enteral feedi ngs? other? poor candidate for coresafe, however once DTs are complete will need intensive social work assistance to determine disposition post-discharge Admission and Anticipated Discharge Date Admission Date: December 23, 2021 Subjective patient unable to provide any meaningful history or ROS said multiple times "they are in the street" he said, like yesterday, "I feel good" precedex drip is off remains on scheduled IV ativan staff report no oral intake mitts remain in place for safety no seizure activity Review of Systems Review of Systems: CV - denied chest pain pulm - denied dyspnea GI - denied abd pain or nausea Physical Exam Physical Exam: gen - eyes open, awake, answers simple questions but with slurry speech; disoriented eyes - unable to assess for nystagmus (he would not track); injected conjunctiva/sclera mouth - MM dry neck - no JVD heart - RRR, s1 s2, no murmur lungs - CTA b/l abd - soft, NT, ND, BS+ ext - no edema, pulses 2+ b/l; soft mitts on hands in place neuro - moving arms spontaneously Results & Data Results & Data ([facility]) Vital Signs (Past 12 Hours) Vital Signs Temp Pulse Resp BP Pulse Ox 12/26/21 08:00 37 C 12/26/21 07:30 84 20 172/101 H 93 12/26/21 07:00 86 22 194/113 H 94 12/26/21 06:39 99 H 222/188 H 12/26/21 05:30 89 17 92 12/26/21 05:02 96 H 18 91 12/26/21 05:00 95 H 19 94 12/26/21 04:30 100 H 16 95 12/26/21 04:04 90 20 183/111 H 95 12/26/21 04:00 94 H 23 95 12/26/21 03:30 79 23 156/84 H 95 12/26/21 03:00 76 26 H 151/99 H 93 12/26/21 02:30 83 21 174/101 H 94 12/26/21 02:00 77 20 157/100 H 93 12/26/21 01:32 83 21 153/114 H 95 12/26/21 01:00 77 19 130/89 93 12/26/21 00:53 85 21 179/116 H 93 12/26/21 00:30 84 20 176/115 H 95 12/26/21 00:29 87 18 188/123 H 95 12/26/21 00:00 37 C 90 20 96 12/25/21 23:36 88 142/90 H Laboratory Results Laboratory Results - last 24 hr 12/25/21 12/25/21 12/26/21 13:19 18:07 05:54 WBC RBC Hgb Hct MCV MCH MCHC RDW Std Deviation RDW Coeff of Dutch Plt Count MPV Immature Gran % (Auto) Neut % (Auto) Lymph % (Auto) Patrick % (Auto) Eos % (Auto) Baso % (Auto) Neut # (Auto) Lymph # (Auto) Patrick # (Auto) Eos # (Auto) Baso # (Auto) Immature Gran # (Auto) Sodium 137 Potassium 3.9 Chloride 104 Carbon Dioxide 25 Anion Gap 8 BUN 12 Creatinine 0.77 Est Cr Clr Drug Dosing 102.3 Est GFR ( Amer) 108.8 Est GFR (Non-Af Amer) 93.9 BUN/Creatinine Ratio 15.6 Glucose 116 H POC Glucose 119 H 104 H Calcium 9.2 Phosphorus 3.5 Magnesium 1.7 Total Bilirubin 1.2 H Direct Bilirubin 0.4 H AST 43 H ALT 50 Alkaline Phosphatase 55 Total Protein 7.4 Albumin 3.7 12/26/21 05:54 WBC 6.84 RBC 4.79 Hgb 14.7 Hct 44.2 MCV 92.3 MCH 30.7 MCHC 33.3 RDW Std Deviation 48.9 H RDW Coeff of Dutch 14.4 Plt Count 143 MPV 12.7 H Immature Gran % (Auto) 0.3 Neut % (Auto) 70.0 Lymph % (Auto) 13.5 Patrick % (Auto) 12.7 Eos % (Auto) 3.2 Baso % (Auto) 0.3 Neut # (Auto) 4.79 Lymph # (Auto) 0.92 L Patrick # (Auto) 0.87 H Eos # (Auto) 0.22 Baso # (Auto) 0.02 Immature Gran # (Auto) 0.02 Sodium Potassium Chloride Carbon Dioxide Anion Gap BUN Creatinine Est Cr Clr Drug Dosing Est GFR ( Amer) Est GFR (Non-Af Amer) BUN/Creatinine Ratio Glucose POC Glucose Calcium Phosphorus Magnesium Total Bilirubin Direct Bilirubin AST ALT Alkaline Phosphatase Total Protein Albumin PG Care Time/CCT Total # of Minutes Spent Total Time Spent with Patient: Total time spent is greater than 50% in coordination of care (as documented) at patient's floor/unit and/or counseling patient: Coding Level of Care Code 71733 Subseq Hosp Care Lvl 1 Diagnoses Delirium tremens F10.231 Encephalopathy G93.40 Hypertension I10 Alcohol dependence F10.251 Complication of substance-induced condition: with hallucinations Substance use status: alcohol-induced psychotic disorder Hepatitis C B19.20 Hypertensive urgency I16.0 Hypomagnesemia E83.42 (1) Alcohol dependence Complication of substance-induced condition: with hallucinations Substance use status: alcohol-induced psychotic disorder Qualified Code(s): 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
[2021-12-26] MEDS: ENOXAPARIN INJ 40 MG/0.4 ML SYR SQ SCH (19:40)
[2021-12-26] MEDS ORDERED: STAT IV Infusion **Titration per Protocol STA (21:52)
[2021-12-26] MEDS: niCARdipine 25 MG in SODIUM CHLORIDE 0.9% 240 ML IV SCH (22:14)
[2021-12-27] MEDS: LORazepam 2 MG/1 ML VIAL IV SCH ×5 (00:04→18:23)
[2021-12-27] MEDS: METOPROLOL TARTRATE 1 MG/ML VIAL IV SCH ×5 (00:05→18:23)
[2021-12-27] MEDS: dexMEDEtomidine 200 MCG/50 ML BAG IV SCH ×4 (00:06→20:06)
[2021-12-27 05:53] LABS: BUN Creatinine Ratio 16.9 (10-20); Calcium 9.6 mg/dl (8.5-10.1); Creatinine Clr Calc Pharmacy 102.3 ml/min; Est GFR (African American) 108.8 ml/min; Est GFR (Non-African American) 93.9 ml/min; Magnesium 2.1 mg/dl (1.7-2.4); Phosphorus 4.6 mg/dl (2.5-4.9)
[2021-12-27 05:59] LABS: Basophils # (auto) 0.02 K/uL (0-0.2); Basophils % (auto) 0.3 %; Eosinophils # (auto) 0.21 K/uL (0-0.5); Eosinophils % (auto) 2.7 %; Hematocrit (blood only) 45.9 % (42-52); Hemoglobin 15.2 g/dL (14.0-18.0); Immature Granulocytes # (auto) 0.02 K/uL (0.00-0.02); Immature Granulocytes % (auto) 0.3 %; Lymphocytes % (auto) 22.8 %; Mean Corpuscular Hemoglobin 30.7 pg (25-34); Mean Corpuscular Hgb Conc 33.1 g/dL (32-36); Mean Corpuscular Volume 92.7 fL (80-100); Mean Platelet Volume 13.1 fL (7.4-10.4); Monocytes # (auto) 1.18 K/uL (0.11-0.59); Monocytes % (auto) 14.9 %; Neutrophils # (auto) 4.68 K/uL (1.4-6.5); Platelet Count 153 K/uL (130-400); RDW Coefficient of Variation 14.6 % (11.5-14.5); RDW Standard Deviation 49.9 fL (36.4-46.3); Red Blood Count 4.95 M/uL (4.7-6.1); White Blood Count 7.91 K/uL (4.8-10.8)
[2021-12-27] MEDS: niCARdipine 25 MG in SODIUM CHLORIDE 0.9% 240 ML IV SCH (06:18)
[2021-12-27] MEDS: D5W AND 1/2NSS 1,000 ML IV SCH ×2 (06:20→20:07)
[2021-12-27 07:19] LABS: Lyme Ab IgG w/WB Rflx Positive (Negative); Lyme Ab IgM w/WB Rflx Positive (Negative)
[2021-12-27] MEDS: THIAMINE HCL 100 MG in SYRINGE 9 ML IV SCH (09:18)
[2021-12-27] MEDS: FOLIC ACID 1 MG in SYRINGE 9.8 ML IV SCH (09:18)
--- NOTE | 2021-12-27 10:57 | Critical Care Progress Note ---
Date of Service December 27, 2021 Assessment & Plan (1) Hypertensive urgency: (2) Delirium tremens: (3) Encephalopathy: (4) Hypertension: Plan: Impression: 66-year-old male presents to the ICU and what appears to be alcohol withdrawal/delirium tremens requiring IV Ativan and is currently restrained. Neuro - Metabolic encephalopathy -From delirium tremens -CT head without acute intracranial process -Ammonia within normal limits. UDS negative. EtOH negative -Continue thiamine, cannot rule out Wernicke's encephalopathy - Continue folate -Seizure precautions protocol -Follow-up RPR Cardiac - Hypertensive urgency Likely from DTs Continue with as needed hydralazineto keep SBP less than 150 Metoprolol 5 mg every 4hrs Respiratory - No history of pulmonary disease and currently maintaining oxygen saturations on room air without labored breathing. Monitor on continuous pulse ox GI - Transaminitismild, likely secondary to fatty liver disease versus cirrhosis in the setting of alcohol abuse and hepatitis C. Reportedly declined treatment in 2019 for hep C. -Liver ultrasound unremarkable -Ammonia within normal limits -Discriminant factor negative. No indication for steroids RENAL/LYTES - Creatinine within normal limits. Monitor routine BMPs and replete electrolytes as indicated - Strict I's and O's ENDO - No history of diabetes or thyroid disease ICU hyperglycemic protocol HEME - H&H stable, monitor routine CBCs ID - Lyme IgG and IgM are positive. Inpatient circumstance it is very difficult to a certain if it is playing any role Not unreasonable to treat --Prophylaxis VTE: Lovenox GI: None Lines: Peripheral ultrasound-guided Diet: N.p.o. due to mental status Plan: In/out: In/out: +2.1 L, urine output 250. Please keep in mind urine output is not accurate We will decrease the metoprolol to 5 mg every 6. Decrease Ativan to 3 mg every 6 Continue with Precedex. Continue with IV fluids The patient is not alert enough to eat today then we will put NGT and start him on tube feeds I have personally spent 39 minutes of critical care time in the direct management of this patient. This is a life/limb threatening event. This includes time spent evaluating patient, direct bedside care, chart review, placing orders, interpretation of diagnostic studies, discussion with consultants, patient, and family members, as well as other required patient management activities. This time is exclusive of all separately billable procedures, and teaching time and separate from and in addition to any other critical care service time. Please note the above document was generated using voice recognition software. It may contain grammatical, syntax or spelling errors. Admission and Anticipated Discharge Date Admission Date: December 23, 2021 Subjective Patient seen and examined at bedside. No acute distress Overnight patient was restarted on Precedex and he was also started on nifedipine drip as his blood pressure was still creeping up At the time of examination patient is RASS -2 -3 Precedex has been turned off and so is the nifedipine His blood pressure systolic was 130s. Review of Systems Review of Systems: All systems reviewed & are unremarkable except as noted in Subjective Physical Exam Physical Exam: Constitutional: No acute distress HEENT: EOMI, PERRLA Respiratory system: Decreased antibiotic, no wheeze, rhonchi, positive crackles bilaterally lower lobes CVS: S1-S2 positive, no murmurs or gallops Abdomen: Soft, nontender, nondistended, positive bowel sounds x4 Extremities: +2 pulses bilaterally radialis/ dorsalis pedis, no cyanosis, no edema Neuro: RASS -2 Psych: Unable to assess G/U: [place] Skin: no rashes, warm and dry Lymphatic: no cervical or axillary lymphadenopathy Results & Data Results & Data ([place]) Vital Signs (Past 12 Hours) Vital Signs Temp Pulse Resp BP Pulse Ox 12/27/21 09:30 36.1 C L 72 18 133/80 97 12/27/21 09:00 36.1 C L 79 23 97 12/27/21 08:48 36.0 C L 75 20 136/85 98 12/27/21 08:30 36.0 C L 69 16 93/68 L 98 12/27/21 08:04 67 81/52 L 12/27/21 08:00 36.1 C L 68 17 93 12/27/21 07:59 36.1 C L 69 16 81/52 L 93 12/27/21 07:43 36.0 C L 67 15 73/49 L 94 12/27/21 07:30 36.0 C L 70 17 78/59 L 93 12/27/21 07:21 36.0 C L 72 17 87/69 L 94 12/27/21 07:06 36.2 C L 91 H 20 86/68 L 12/27/21 07:02 36.2 C L 68 17 67/55 L 93 12/27/21 07:00 36.2 C L 67 16 77/48 L 92 12/27/21 06:00 36.3 C L 79 19 102/57 L 12/27/21 05:30 36.2 C L 80 24 100/64 12/27/21 05:16 36.1 C L 97 H 25 H 132/90 12/27/21 05:00 36.0 C L 92 H 17 94 12/27/21 04:47 35.6 C L 99 H 18 164/94 H 84 L 12/27/21 04:30 101 H 168/110 H 12/27/21 04:01 35.7 C L 79 23 175/116 H 97 12/27/21 04:00 35.7 C L 79 22 96 12/27/21 03:30 35.4 C L 75 21 130/75 98 12/27/21 03:00 35.8 C L 78 16 123/82 96 12/27/21 02:33 36.0 C L 75 21 134/96 12/27/21 02:31 36.0 C L 78 18 93 12/27/21 02:06 36.0 C L 69 16 81/48 L 92 12/27/21 02:05 36.0 C L 70 15 73/59 L 89 L 12/27/21 02:01 36.0 C L 70 16 82/50 L 91 12/27/21 02:00 36.0 C L 68 16 90 12/27/21 01:30 123/64 12/27/21 01:00 36.2 C L 82 21 95 12/27/21 00:31 36.3 C L 83 20 90/60 L 96 12/27/21 00:30 36.3 C L 84 20 92 12/27/21 00:05 93 H 134/106 H 12/27/21 00:00 91 H 92 12/26/21 23:45 91 H 117/73 92 12/26/21 23:30 92 H 112/79 94 12/26/21 23:15 97 H 145/95 H 94 12/26/21 23:01 97 H 23 166/82 H 94 12/26/21 23:00 97 H 22 94 Laboratory Results 12/27/21 04:31 12/27/21 04:31 Coding Level of Care Code Critical Care 1st 30-74 mins Diagnoses Hypertensive urgency I16.0 Delirium tremens F10.231 Encephalopathy G93.40 Hypertension I10 Time Spent (min) 39
[2021-12-27] MEDS: cefTRIAXone SODIUM 2,000 MG in DEXTROSE 5% 50 ML IV SCH (14:17)
[2021-12-27] MEDS: LORazepam 2 MG/1 ML VIAL IV PRN ×2 (14:43→20:05)
--- NOTE | 2021-12-27 19:17 | Hospitalist Progress Note ---
Date of Service December 27, 2021 Assessment & Plan (1) Delirium tremens: Plan: Ongoing. Precedex drip has been needed intermittently. Stopped this am due to lethargy/significant sedation. Ativan dose is being weaned slowly by Dr Herron as tolerated. Remains hypertensive - worse with periods of agitation. s/p high-dose thiamine x 2 days, now once daily IV. Cont IV fluids & supportive care. Labs today remain acceptable. Defer nutrition to ICU attending. NG tube with enteral feedings? (2) Encephalopathy: Plan: Metabolic. And likely some toxic effects from Ativan/precedex/etc. severe DTs +/- Wernicke's encephalopathy. +Lyme IgM and IgG - can't rule out Lyme contributing to clinical picture, especially if it early disseminated Lyme. see #1 above re: Rx for DTs. For ?Wernicke's -- s/p thiamine 500mg IV TID x 2 days, now IV daily. Will not check a B1 level as it would likely be inaccurate due to copious supplementation given since admission. TSH, B12 levels both wnl. head CT at admission with atrophy/ventriculomegaly but no ICH, CVA, etc. Late in the day today he had a low-grade temp (37.6) - consider u/a, urine cx, cxr, blood cx's. I did start rocephin 2gm IV daily for potential Lyme. RPR is pending. Consider repeat ammonia level. Consider VBG given the significant sedation & snoring. when DTs have resolved will need thorough evaluation of mental status; consider psych eval at that time, too, given the collateral information from his sister (chronic, intermittent hallucinations, etc). (3) Positive Lyme disease serology: Plan: both IgM and IgG lyme Ab's are positive. this would suggest early disseminated Lyme disease if the Western Blot returns positive. start rocephin 2gm IV daily. the patient had been living in a [place] in the [place] for many years and likely had significant tick exposure. (4) Hypertension: Plan: At minimum his severe etoh withdrawal/DTs is contributing to this. Can't rule out essential HTN but he was not taking BP meds at home. Cont IV beta angelita scheduled. IV hydralazine prn. Needed nicardipine drip overnight - now off. Follow BPs. (5) Alcohol dependence: Plan: See above (6) Hepatitis C: Plan: Chronic, previously seen by ID in 2019 and was offered treatment, however declined at that time. Reportedly has received hep A and B vaccines. Has concurrent alcoholic hepatitis but ast/alt are now close to normal. Ammonia level on 12/23 was wnl. Patient with prior h/o drug abuse and has been incarcerated for illicit drugs in the past. Would benefit from HIV testing once he is able to give consent for such. (7) Hypertensive urgency: Plan: Improved with Rx of DTs and receiving sedation along with IV BP meds as above. Labile BPs remain, however. Defer Rx to ICU attending. (8) Hypomagnesemia: Plan: replaced resolved Plan: DVT proph - lovenox FEN - cont maintenance fluids, labs again in am; defer choice of nutrition to ICU attending once DTs are complete will need intensive social work assistance to determine disposition post-discharge will update pt's sister tomorrow Admission and Anticipated Discharge Date Admission Date: December 23, 2021 Subjective events of overnight reviewed patient required precedex infusion for increased agitation as well as nicardipine drip for marked hypertension soft mitts on hands remain for safety during the visit he was lethargic did not wake to his name being called Review of Systems Review of Systems: Unobtainable due to cognitive status Physical Exam Physical Exam: gen - snoring, lethargic, very course/loud audible breath sounds mouth - MM dry neck - no JVD heart - RRR, s1 s2, no murmur lungs - b/l basilar rales, scattered wheezes; snoring; course BS all segments; upper airway noise also transmitted to chest; tachypnea abd - soft, NT, ND, BS+ ext - no edema, pulses 2+ b/l; soft mitts on hands in place skin - warm/dry Results & Data Results & Data ([facility]) Vital Signs (Past 12 Hours) Vital Signs Temp Pulse Resp BP Pulse Ox 12/27/21 18:20 37.6 C H 101 H 24 131/88 97 12/27/21 18:00 37.5 C 106 H 17 98 12/27/21 17:30 37.5 C 92 H 18 151/98 H 96 12/27/21 17:00 37.4 C 100 H 19 158/110 H 96 12/27/21 16:30 37.3 C 91 H 15 152/91 H 97 12/27/21 16:15 37.4 C 86 17 96 12/27/21 16:00 37.4 C 88 17 148/81 H 96 12/27/21 15:45 37.5 C 89 18 95 12/27/21 15:30 37.5 C 90 17 139/87 96 12/27/21 15:15 37.5 C 93 H 17 96 12/27/21 15:00 37.5 C 96 H 18 130/87 96 12/27/21 14:45 37.5 C 98 H 18 97 12/27/21 14:44 37.5 C 101 H 16 170/71 H 97 12/27/21 14:30 37.4 C 117 H 18 97 12/27/21 14:17 82 132/92 12/27/21 14:15 37.4 C 80 16 94 12/27/21 14:00 37.4 C 87 16 132/92 96 12/27/21 13:45 37.4 C 82 16 95 12/27/21 13:31 37.4 C 85 16 142/92 H 94 12/27/21 13:30 37.4 C 84 16 96 12/27/21 13:15 37.3 C 85 16 95 12/27/21 13:00 37.3 C 87 18 96 12/27/21 12:45 37.3 C 83 16 96 12/27/21 12:31 37.2 C 94 H 15 142/88 H 97 12/27/21 12:30 37.2 C 99 H 18 97 12/27/21 12:15 37.1 C 84 19 95 12/27/21 12:00 36.9 C 82 18 130/96 96 12/27/21 11:45 36.8 C 80 17 95 12/27/21 11:30 36.7 C 81 18 124/94 95 12/27/21 11:15 36.6 C 77 18 95 12/27/21 11:00 36.5 C 76 21 131/74 95 12/27/21 10:45 36.5 C 76 19 95 12/27/21 10:30 36.4 C L 77 17 118/93 97 12/27/21 10:15 36.3 C L 79 17 96 12/27/21 10:00 36.2 C L 77 19 97 12/27/21 09:45 36.1 C L 75 17 97 12/27/21 09:30 36.1 C L 72 18 133/80 97 12/27/21 09:00 36.1 C L 79 23 97 12/27/21 08:48 36.0 C L 75 20 136/85 98 12/27/21 08:30 36.0 C L 69 16 93/68 L 98 12/27/21 08:04 67 81/52 L 12/27/21 08:00 36.1 C L 71 17 93 12/27/21 07:59 36.1 C L 69 16 81/52 L 93 12/27/21 07:43 36.0 C L 67 15 73/49 L 94 12/27/21 07:30 36.0 C L 70 17 78/59 L 93 12/27/21 07:21 36.0 C L 72 17 87/69 L 94 Laboratory Results Laboratory Results - last 24 hr 12/27/21 12/27/21 12/27/21 04:31 04:31 04:31 WBC 7.91 RBC 4.95 Hgb 15.2 Hct 45.9 MCV 92.7 MCH 30.7 MCHC 33.1 RDW Std Deviation 49.9 H RDW Coeff of [place] 14.6 H Plt Count 153 MPV 13.1 H Immature Gran % (Auto) 0.3 Neut % (Auto) 59.0 Lymph % (Auto) 22.8 [place] % (Auto) 14.9 Eos % (Auto) 2.7 Baso % (Auto) 0.3 Neut # (Auto) 4.68 Lymph # (Auto) 1.80 [place] # (Auto) 1.18 H Eos # (Auto) 0.21 Baso # (Auto) 0.02 Immature Gran # (Auto) 0.02 Sodium 139 Potassium 4.0 Chloride 105 Carbon Dioxide 25 Anion Gap 9 BUN 13 Creatinine 0.77 Est Cr Clr Drug Dosing 102.3 Est GFR ( Amer) 108.8 Est GFR (Non-Af Amer) 93.9 BUN/Creatinine Ratio 16.9 Glucose 105 H Calcium 9.6 Phosphorus 4.6 D Magnesium 2.1 RPR Pending Lyme Disease IgG Ab Positive A Lyme IgG (Western Blot) Lyme IgG 18 kDa Band Lyme IgG 23 kDa Band Lyme IgG 28 kDa Band Lyme IgG 30 kDa Band Lyme IgG 39 kDa Band Lyme IgG 41 kDa Band Lyme IgG 45 kDa Band Lyme IgG 58 kDa Band Lyme IgG 66 kDa Band Lyme IgG 93 kDa Band Lyme IgM Ab (WB) Lyme Disease IgM Ab Positive A Lyme IgM 23 kDa Band Lyme IgM 39 kDa Band Lyme IgM 41 kDa Band 12/27/21 04:31 WBC RBC Hgb Hct MCV MCH MCHC RDW Std Deviation RDW Coeff of [place] Plt Count MPV Immature Gran % (Auto) Neut % (Auto) Lymph % (Auto) [place] % (Auto) Eos % (Auto) Baso % (Auto) Neut # (Auto) Lymph # (Auto) [place] # (Auto) Eos # (Auto) Baso # (Auto) Immature Gran # (Auto) Sodium Potassium Chloride Carbon Dioxide Anion Gap BUN Creatinine Est Cr Clr Drug Dosing Est GFR ( Amer) Est GFR (Non-Af Amer) BUN/Creatinine Ratio Glucose Calcium Phosphorus Magnesium RPR Lyme Disease IgG Ab Lyme IgG (Western Blot) Pending Lyme IgG 18 kDa Band Pending Lyme IgG 23 kDa Band Pending Lyme IgG 28 kDa Band Pending Lyme IgG 30 kDa Band Pending Lyme IgG 39 kDa Band Pending Lyme IgG 41 kDa Band Pending Lyme IgG 45 kDa Band Pending Lyme IgG 58 kDa Band Pending Lyme IgG 66 kDa Band Pending Lyme IgG 93 kDa Band Pending Lyme IgM Ab (WB) Pending Lyme Disease IgM Ab Lyme IgM 23 kDa Band Pending Lyme IgM 39 kDa Band Pending Lyme IgM 41 kDa Band Pending PG Care Time/CCT Total # of Minutes Spent Total Time Spent with Patient: Total time spent is greater than 50% in coordination of care (as documented) at patient's floor/unit and/or counseling patient: Coding Level of Care Code 33725 Subseq Hosp Care Lvl 2 Diagnoses Delirium tremens F10.231 Encephalopathy G93.40 Hypertension I10 Alcohol dependence F10.251 Complication of substance-induced condition: with hallucinations Substance use status: alcohol-induced psychotic disorder Hepatitis C B19.20 Hypertensive urgency I16.0 Hypomagnesemia E83.42 Positive Lyme disease serology R76.8 (1) Alcohol dependence Complication of substance-induced condition: with hallucinations Substance use status: alcohol-induced psychotic disorder Qualified Code(s): 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
[2021-12-27] MEDS: ENOXAPARIN INJ 40 MG/0.4 ML SYR SQ SCH (20:06)
[2021-12-27] MEDS ORDERED: VANCOMYCIN CONSULT ACTIVE PRN (20:36)
[2021-12-27] MEDS ORDERED: ACETAMINOPHEN 1,000 MG/100 ML VIAL IV PRN (20:49)
[2021-12-27 21:10] LABS: Appearance Urine Clear (Clear); Bacteria Urine Automated Negative (Negative); Blood Urine 2+ (Negative); Color Urine Orange; Epithelial Cell Urine Auto 20-30 /lpf (0-5); Glucose Urine UA Negative (Negative); Ketones Urine 1+ (Negative); Leukocyte Esterase Urine 1+ (Negative); Nitrite Urine Positive (Negative); Protein Urine 1+ (Negative); Urobilinogen Urine Positive (Negative); pH Urine 5.5 (4.5-7.5)
[2021-12-27 21:13] LABS: Bilirubin Urine 1+ (Negative)
[2021-12-27] MEDS ORDERED: VANCOMYCIN HCL 2,000 MG in SODIUM CHLORIDE 0.9% 500 ML IV ONE (21:30)
[2021-12-28] MEDS: METOPROLOL TARTRATE 1 MG/ML VIAL IV SCH ×4 (00:06→18:19)
[2021-12-28] MEDS: LORazepam 2 MG/1 ML VIAL IV SCH ×5 (00:24→18:19)
[2021-12-28] MEDS: dexMEDEtomidine 200 MCG/50 ML BAG IV SCH ×4 (03:40→21:47)
[2021-12-28 05:23] LABS: Basophils # (auto) 0.02 K/uL (0-0.2); Basophils % (auto) 0.3 %; Eosinophils # (auto) 0.28 K/uL (0-0.5); Eosinophils % (auto) 4.3 %; Hematocrit (blood only) 44.3 % (42-52); Hemoglobin 14.6 g/dL (14.0-18.0); Immature Granulocytes # (auto) 0.01 K/uL (0.00-0.02); Immature Granulocytes % (auto) 0.2 %; Lymphocytes # (auto) 1.81 K/uL (1.2-3.4); Lymphocytes % (auto) 27.6 %; Mean Corpuscular Hemoglobin 30.7 pg (25-34); Mean Corpuscular Volume 93.1 fL (80-100); Monocytes % (auto) 18.3 %; Neutrophils # (auto) 3.23 K/uL (1.4-6.5); Neutrophils % (auto) 49.3 %; Platelet Count 135 K/uL (130-400); RDW Coefficient of Variation 14.5 % (11.5-14.5); RDW Standard Deviation 49.6 fL (36.4-46.3); Red Blood Count 4.76 M/uL (4.7-6.1); White Blood Count 6.55 K/uL (4.8-10.8)
[2021-12-28 05:40] LABS: BUN Creatinine Ratio 16.2 (10-20); Calcium 9.5 mg/dl (8.5-10.1); Creatinine Clr Calc Pharmacy 106.4 ml/min; Est GFR (African American) 110.6 ml/min; Est GFR (Non-African American) 95.4 ml/min; Magnesium 1.9 mg/dl (1.7-2.4); Phosphorus 4.2 mg/dl (2.5-4.9); Potassium 4.2 mmol/L (3.5-5.1)
[2021-12-28] MEDS ORDERED: VANCOMYCIN HCL 1,250 MG in SODIUM CHLORIDE 0.9% 250 ML IV SCH (06:00)
--- NOTE | 2021-12-28 07:56 | Pharmacy Report ---
Pharmacy Vanc AUC Short Note - Date of Service December 28, 2021 - Assessment & Plan Assessment 66 year old M receiving IV Vancomycin and Ceftriaxone for treatment of empiric. Day # 2 of antimicrobial therapy. * Presented with encephalopathy (hx etOH) and +Lyme, was started on Ceftriaxone. Febrile last night and therefore Vancomycin was added to regimen. * No renal impairment noted. CrCl >100 mL/min. * Patient received Vancomycin 2000mg (~23mg/kg) IV x 1 as a loading dose Plan Vancomycin * AUC/SOMMER is the preferred PK/PD target for vancomycin * AUC guided dosing is effective and associated with decreased risk of nephrotoxicity compared to traditional trough targets * According to [employer], Vancomycin 1250mg (~14mg/kg) IV q12 is predicted to achieve target AUC/SOMMER of 400-600 mg/L.hr and may be associated with a 13 % risk of nephrotoxicity * No trough level ordered at this time due to empiric indication. If Vancomycin continued >48 hours, will order at that time to reassess dosing regimen Pharmacy will continue to follow and will adjust dose/frequency as necessary. Thank you.
--- NOTE | 2021-12-28 08:01 | XRay Report ---
XR chest 1V portable HISTORY: 66 years-old Male f/u acute shortness of breath COMPARISON: Chest radiograph 12/23/2021 TECHNIQUE: Portable AP view of the chest FINDINGS: Cardiac silhouette is enlarged. Questioned pulmonary vascular congestion. No pneumothorax or large pl eural effusion. Mild right hemidiaphragmatic elevation. No lobar airspace consolidation. Degenerative changes of the shoulders and spine with healed chronic right-sided rib fractures. IMPRESSION: Cardiomegaly with pulmonary vascular congestion. ACT 112: Negative or not required by law. The above report was generated using voice recognition software. It may contain grammatical, syntax o r spelling errors. Electronically signed by: Brandt Seo M.D. 12/28/2021 7:59 AM
[2021-12-28] MEDS: THIAMINE HCL 100 MG in SYRINGE 9 ML IV SCH (09:44)
[2021-12-28] MEDS: cefTRIAXone SODIUM 2,000 MG in DEXTROSE 5% 50 ML IV SCH (09:44)
[2021-12-28] MEDS: FOLIC ACID 1 MG in SYRINGE 9.8 ML IV SCH (09:44)
--- NOTE | 2021-12-28 11:32 | Critical Care Progress Note ---
Date of Service December 28, 2021 Assessment & Plan (1) Hypertensive urgency: (2) Delirium tremens: (3) Encephalopathy: (4) Hypertension: Plan: Impression: 66-year-old male presents to the ICU and what appears to be alcohol withdrawal/delirium tremens requiring IV Ativan and is currently restrained. Neuro - Metabolic encephalopathy -From delirium tremens -CT head without acute intracranial process -Ammonia within normal limits. UDS negative. EtOH negative -Continue thiamine, cannot rule out Wernicke's encephalopathy - Continue folate -Seizure precautions protocol -Follow-up RPR Cardiac - Hypertensive urgency Likely from DTs Continue with as needed hydralazine to keep SBP less than 150 Metoprolol 5 mg every 4hrs Respiratory - No history of pulmonary disease and currently maintaining oxygen saturations on room air without labored breathing. Monitor on continuous pulse ox GI - Transaminitismild, likely secondary to fatty liver disease versus cirrhosis in the setting of alcohol abuse and hepatitis C. Reportedly declined treatment in 2019 for hep C. -Liver ultrasound unremarkable -Ammonia within normal limits -Discriminant factor negative. No indication for steroids RENAL/LYTES - Creatinine within normal limits. Monitor routine BMPs and replete electrolytes as indicated - Strict I's and O's ENDO - No history of diabetes or thyroid disease ICU hyperglycemic protocol HEME - H&H stable, monitor routine CBCs ID - --Low-grade fever On 12/28/2021 Chest x-ray does not show any significant change compared to before Procalcitonin is negative Nasal MRSA is negative Will discontinue vancomycin Lyme IgG and IgM are positive. Inpatient circumstance it is very difficult to a certain if it is playing any role Not unreasonable to treat --Prophylaxis VTE: Lovenox GI: None Lines: Peripheral ultrasound-guided Diet: NPO Plan: In/out: +600, urine output 1275 Patient blood pressure is fairly controlled. Continue with metoprolol with holding parameters He is on Ativan 3 mg every 6 hours currently, will consider going down to 3 mg every 8 hours We will try to gradually go down. Trial of clear liquids today and advance as tolerated if patient is still unable to have anything by mouth because of the mental status and I would put NGT to feed the patient Magnesium being replaced DC vancomycin I have personally spent 37 minutes of critical care time in the direct man agement of this patient. This is a life/limb threatening event. This includes time spent evaluating patient, direct bedside care, chart review, placing orders, interpretation of diagnostic studies, discussion with consultants, patient, and family members, as well as other required patient management activities. This time is exclusive of all separately billable procedures, and teaching time and separate from and in addition to any other critical care service time. Please note the above document was generated using voice recognition software. It may contain grammatical, syntax or spelling errors. Admission and Anticipated Discharge Date Admission Date: December 23, 2021 Subjective Patient seen and examined at bedside. No acute distress. Overnight he was on Precedex. RASS -1--2 Answering simple questions Denied any headache, no nausea vomiting No chest pain Review of Systems Review of Systems: All systems reviewed & are unremarkable except as noted in Subjective Physical Exam Physical Exam: Constitutional: No acute distress HEENT: EOMI, PERRLA Respiratory system: Decreased antibiotic, no wheeze, rhonchi, positive crackles bilaterally lower lobes CVS: S1-S2 positive, no murmurs or gallops Abdomen: Soft, nontender, nondistended, positive bowel sounds x4 Extremities: +2 pulses bilaterally radialis/ dorsalis pedis, no cyanosis, no edema Neuro: RASS -1 -2, answering simple questions Psych: Unable to assess G/U: [place] Skin: no rashes, warm and dry Lymphatic: no cervical or axillary lymphadenopathy Results & Data Results & Data ([facility]) Vital Signs (Past 12 Hours) Vital Signs Temp Pulse Resp BP Pulse Ox 12/28/21 06:34 69 104/84 12/28/21 06:00 35.9 C L 71 14 92 12/28/21 05:32 35.7 C L 87 18 180/105 H 96 12/28/21 05:00 35.6 C L 71 14 142/95 H 95 12/28/21 04:30 35.4 C L 69 16 137/90 97 12/28/21 04:00 35.4 C L 65 14 124/99 93 12/28/21 03:30 35.5 C L 67 15 122/79 92 12/28/21 03:00 35.6 C L 68 14 129/86 92 12/28/21 02:30 35.7 C L 69 14 117/77 93 12/28/21 02:00 35.8 C L 69 13 87/62 L 92 12/28/21 01:30 35.9 C L 71 14 111/81 91 12/28/21 01:00 35.9 C L 74 14 108/83 91 12/28/21 00:30 36.0 C L 72 14 104/77 93 12/28/21 00:06 72 94/71 L 12/28/21 00:00 36.2 C L 74 14 94/71 L 92 12/27/21 23:30 36.4 C L 77 14 97/74 L 92 Laboratory Results 12/28/21 05:07 12/28/21 05:07 Coding Level of Care Code Critical Care 1st 30-74 mins Diagnoses Hypertensive urgency I16.0 Delirium tremens F10.231 Encephalopathy G93.40 Hypertension I10 Time Spent (min) 37
[2021-12-28] MEDS: D5W AND 1/2NSS 1,000 ML IV SCH (13:55)
[2021-12-28] MEDS: LORazepam 2 MG/1 ML VIAL IV PRN ×2 (13:56→15:42)
[2021-12-28] MEDS ORDERED: STAT IV Infusion **Titration per Protocol STA (15:30)
[2021-12-28] MEDS: hydrALAZINE HCL 20 MG/ML VIAL IV PRN (15:33)
[2021-12-28] MEDS: ENOXAPARIN INJ 40 MG/0.4 ML SYR SQ SCH (19:40)
--- NOTE | 2021-12-28 22:11 | Hospitalist Progress Note ---
Date of Service December 28, 2021 Assessment & Plan (1) Delirium tremens: Plan: Ongoing. Precedex drip has been needed intermittently. Ativan dose is being managed (and weaned as tolerated) by Dr Herron. s/p high-dose thiamine x 2 days, now once daily IV. Cont IV fluids & supportive care. Labs remain acceptable. Defer nutrition to ICU attending. NG tube with enteral feedings? PPN? Most recent LFTs largely wnl. (2) Encephalopathy: Plan: Ongoing. Metabolic. And likely some toxic effects from Ativan/precedex/etc. Main culprit -- severe DTs. Cannot rule out Wernicke's encephalopathy. +Lyme IgM and IgG - can't rule out Lyme contributing to clinical picture, especially if it is early disseminated Lyme. see #1 above re: Rx for DTs. For ?Wernicke's -- s/p thiamine 500mg IV TID x 2 days, now IV daily. Will not check a B1 level as it would likely be inaccurate due to copious supplementation given since admission. TSH, B12 levels both wnl. head CT at admission with atrophy/ventriculomegaly but no ICH, CVA, etc. Yesterday had low-grade fevers - infectious w/u sent - cxr, blood cx's, procal, etc. Labs reassuring. No leukocytosis. Remains on rocephin 2gm IV daily for potential Lyme. Western Blot pending. RPR still pending. Consider repeat ammonia level. Consider VBG given the significant sedation & snoring. when DTs have resolved will need thorough evaluation of mental status; consider psych eval at that time, too, given the collateral information from his sister (chronic, intermittent hallucinations for many years, etc). (3) Positive Lyme disease serology: Plan: both IgM and IgG lyme Ab's are positive. this would suggest early disseminated Lyme disease if the Western Blot returns true positive. day #2 rocephin 2gm IV daily. the patient had been living in a home in the [facility] [place] for many years and likely had significant tick exposure. (4) Hypertension: Plan: Cont IV beta angelita scheduled. IV hydralazine prn. Needed nicardipine drip briefly - now off. Follow BPs. (5) Alcohol dependence: Plan: See above (6) Hepatitis C: Plan: Chronic, previously seen by ID in 2019 and was offered treatment, however declined at that time. Reportedly has received hep A and B vaccines. Has concurrent alcoholic hepatitis but ast/alt are now close to normal. Ammonia level on 12/23 was wnl. Patient with prior h/o drug abuse and has been incarcerated for illicit drugs in the past. Would benefit from HIV testing once he is able to give consent for such. (7) Hypertensive urgency: Plan: Improved with Rx of DTs and receiving sedation along with IV BP meds as above. Labile BPs depending on level of agitation. Defer Rx to ICU attending. (8) Hypomagnesemia: Plan: replaced resolved Plan: DVT proph - lovenox FEN - cont maintenance fluids, labs again in am; defer choice of nutrition to ICU attending once DTs are complete will need intensive social work assistance to determine disposition post-discharge and will need psych eval left message for pt's sister today on her voicemail Admission and Anticipated Discharge Date Admission Date: December 23, 2021 Subjective patient more awake today did try to speak some but his speech was garbled and difficult to understand he did follow some simple commands soft Mitts still in place; he was trying to push my stethoscope away during my exam coughing at times - still with sputum - nursing using suction to clear the oral cavity precedex is off at this time there has been some discussion about attempting NG tube placement for enteral feedings Review of Systems Review of Systems: Unobtainable due to cognitive status Physical Exam Physical Exam: gen - awake but confused, following commands minimally, coughing eyes - conjunctivitis b/l mouth - MM dry neck - no JVD heart - RRR, s1 s2, no murmur lungs - coughing, airation is better today, some mild end-exp wheezes scattered, occasional crackle abd - soft, NT, ND, BS+ ext - no edema, pulses 2+ b/l; soft mitts on hands in place vascular - there are 2 areas of enlarged veins on LLE - one area is medial distal anterior thigh (it is not a warm cord), and another on al; there are associated varicose veins neuro - tremor present Results & Data Results & Data ([facility]) Vital Signs (Past 12 Hours) Vital Signs Temp Pulse Resp BP Pulse Ox 12/28/21 19:30 36.6 C 67 13 106/58 L 94 12/28/21 19:00 36.7 C 88 13 160/111 H 12/28/21 18:30 36.8 C 79 12 104/59 L 93 12/28/21 18:19 100 H 166/108 H 12/28/21 18:13 36.9 C 95 H 18 166/108 H 12/28/21 18:00 36.9 C 96 H 16 12/28/21 17:30 37.0 C 90 14 121/83 95 12/28/21 17:17 37.1 C 98 H 21 145/103 H 96 12/28/21 17:01 37.1 C 102 H 16 95 12/28/21 17:00 37.2 C 103 H 21 97 12/28/21 16:30 37.2 C 100 H 16 156/99 H 95 12/28/21 16:02 37.6 C H 112 H 20 130/85 94 12/28/21 16:00 37.4 C 112 H 14 94 12/28/21 15:30 37.9 C H 105 H 15 163/114 H 96 12/28/21 15:24 38.0 C H 106 H 19 156/129 H 95 12/28/21 15:00 37.9 C H 103 H 14 175/128 H 97 12/28/21 14:30 38.1 C H 96 H 16 163/109 H 95 12/28/21 14:00 38.0 C H 99 H 16 178/114 H 97 12/28/21 13:30 37.6 C H 84 14 169/117 H 96 12/28/21 13:00 37.5 C 85 12 179/113 H 97 12/28/21 12:30 37.5 C 88 17 153/88 H 96 12/28/21 12:16 37.7 C H 92 H 18 171/105 H 96 12/28/21 12:13 110 H 192/111 H 12/28/21 12:04 37.7 C H 93 H 19 192/111 H 98 12/28/21 12:00 37.8 C H 96 H 17 191/99 H 97 12/28/21 11:30 37.4 C 84 18 190/101 H 95 12/28/21 11:01 37.2 C 78 14 164/108 H 96 12/28/21 11:00 37.2 C 80 14 96 04/17/22 10:30 37.1 C 82 11 L 153/96 H 96 Laboratory Results Laboratory Results - last 24 hr 12/27/21 12/28/21 12/28/21 Unknown 05:07 05:07 WBC 6.55 RBC 4.76 Hgb 14.6 Hct 44.3 MCV 93.1 MCH 30.7 MCHC 33.0 RDW Std Deviation 49.6 H RDW Coeff of Dutch 14.5 Plt Count 135 MPV 13.0 H Immature Gran % (Auto) 0.2 Neut % (Auto) 49.3 Lymph % (Auto) 27.6 [place] % (Auto) 18.3 Eos % (Auto) 4.3 Baso % (Auto) 0.3 Neut # (Auto) 3.23 Lymph # (Auto) 1.81 [place] # (Auto) 1.20 H Eos # (Auto) 0.28 Baso # (Auto) 0.02 Immature Gran # (Auto) 0.01 Sodium 143 Potassium 4.2 Chloride 111 H Carbon Dioxide 26 Anion Gap 6 BUN 12 Creatinine 0.74 Est Cr Clr Drug Dosing 106.4 Est GFR ( Amer) 110.6 Est GFR (Non-Af Amer) 95.4 BUN/Creatinine Ratio 16.2 Glucose 105 H Calcium 9.5 Phosphorus 4.2 Magnesium 1.9 Nasal Screen MRSA (PCR) Negative PG Care Time/CCT Total # of Minutes Spent Total Time Spent with Patient: Total time spent is greater than 50% in coordination of care (as documented) at patient's floor/unit and/or counseling patient: Coding Level of Care Code 96475 Subseq Hosp Care Lvl 2 Diagnoses Delirium tremens F10.231 Encephalopathy G93.40 Positive Lyme disease serology R76.8 Hypertension I10 Alcohol dependence F10.251 Complication of substance-induced condition: with hallucinations Substance use status: alcohol-induced psychotic disorder Hepatitis C B19.20 Hypertensive urgency I16.0 Hypomagnesemia E83.42 (1) Alcohol dependence Complication of substance-induced condition: with hallucinations Substance use status: alcohol-induced psychotic disorder Qualified Code(s): 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
[2021-12-29] MEDS: LORazepam 2 MG/1 ML VIAL IV SCH ×5 (00:39→23:45)
[2021-12-29] MEDS: METOPROLOL TARTRATE 1 MG/ML VIAL IV SCH ×5 (00:39→23:45)
[2021-12-29] MEDS: dexMEDEtomidine 200 MCG/50 ML BAG IV SCH ×6 (02:08→23:45)
[2021-12-29] MEDS: D5W AND 1/2NSS 1,000 ML IV SCH ×2 (04:00→18:34)
[2021-12-29 05:13] LABS: Basophils # (auto) 0.03 K/uL (0-0.2); Basophils % (auto) 0.6 %; Eosinophils # (auto) 0.32 K/uL (0-0.5); Eosinophils % (auto) 6.7 %; Hematocrit (blood only) 42.4 % (42-52); Hemoglobin 14.3 g/dL (14.0-18.0); Immature Granulocytes # (auto) 0.01 K/uL (0.00-0.02); Immature Granulocytes % (auto) 0.2 %; Lymphocytes # (auto) 0.95 K/uL (1.2-3.4); Lymphocytes % (auto) 19.8 %; Mean Corpuscular Hemoglobin 30.7 pg (25-34); Mean Corpuscular Hgb Conc 33.7 g/dL (32-36); Mean Platelet Volume 12.9 fL (7.4-10.4); Monocytes # (auto) 0.97 K/uL (0.11-0.59); Monocytes % (auto) 20.2 %; Neutrophils # (auto) 2.52 K/uL (1.4-6.5); Neutrophils % (auto) 52.5 %; Platelet Count 140 K/uL (130-400); RDW Coefficient of Variation 14.2 % (11.5-14.5); Red Blood Count 4.66 M/uL (4.7-6.1)
[2021-12-29 05:40] LABS: Albumin Level 3.7 gm/dl (3.4-5.0); BUN Creatinine Ratio 13.4 (10-20); Bilirubin Direct 0.3 mg/dl (0-0.2); Bilirubin,Total 0.9 mg/dl (0.2-1.0); Calcium 9.4 mg/dl (8.5-10.1); Creatinine Clr Calc Pharmacy 115.9 ml/min; Est GFR (African American) 115.2 ml/min; Est GFR (Non-African American) 99.4 ml/min; Magnesium 1.7 mg/dl (1.7-2.4); Potassium 3.2 mmol/L (3.5-5.1); Total Protein 7.3 gm/dl (6.0-8.3)
[2021-12-29] MEDS: POTASSIUM CHLORIDE / WTR 10 MEQ/100 ML PLCT IV SCH ×4 (06:14→09:27)
--- NOTE | 2021-12-29 08:34 | Critical Care Progress Note ---
Date of Service December 29, 2021 Assessment & Plan (1) Hypertensive urgency: (2) Delirium tremens: (3) Encephalopathy: (4) Hypertension: Plan: Impression: 66-year-old male presents to the ICU and what appears to be alcohol withdrawal/delirium tremens requiring IV Ativan and is currently restrained. Neuro - Metabolic encephalopathy -From delirium tremens -CT head without acute intracranial process -Ammonia within normal limits. UDS negative. EtOH negative -Continue thiamine, cannot rule out Wernicke's encephalopathy - Continue folate -Seizure precautions protocol -Follow-up RPR Cardiac - Hypertensive urgency Likely from DTs Continue with as needed hydralazine to keep SBP less than 150 Metoprolol 5 mg every 4hrs Respiratory - No history of pulmonary disease and currently maintaining oxygen saturations on room air without labored breathing. Monitor on continuous pulse ox GI - Transaminitismild, likely secondary to fatty liver disease versus cirrhosis in the setting of alcohol abuse and hepatitis C. Reportedly declined treatment in 2019 for hep C. -Liver ultrasound unremarkable -Ammonia within normal limits -Discriminant factor negative. No indication for steroids RENAL/LYTES - Creatinine within normal limits. ICU electrolyte protocol ordered. - Strict I's and O's ENDO - No history of diabetes or thyroid disease ICU hyperglycemic protocol HEME - H&H stable, monitor routine CBCs ID - No signs of infection. However, Lyme antibody is positive. Patient started on Rocephin per hospitalist team. --Prophylaxis VTE: Lovenox GI: None Lines: Peripheral ultrasound-guided Diet: NPO I have personally spent 35 minutes of critical care time in the direct management of this patient. This is a life/limb threatening event. This includes time spent evaluating patient, direct bedside care, chart review, placing orders, interpretation of diagnostic studies, discussion with consultants, patient, and family members, as well as other required patient management activities. This time is exclusive of all separately billable procedures, and teaching time and separate from and in addition to any other critical care service time. Please note the above document was generated using voice recognition software. It may contain grammatical, syntax or spelling errors. Admission and Anticipated Discharge Date Admission Date: December 23, 2021 Subjective Patient seen and examined. Remains obtunded. Currently on a Precedex infusion. Getting scheduled Ativan. Review of Systems Review of Systems: Unobtainable due to cognitive status Physical Exam Physical Exam: Constitutional: No acute distress HEENT: EOMI, PERRLA Respiratory system: Diminished bilaterally. No increased work of breathing. CVS: S1-S2 positive, no murmurs or gallops Abdomen: Soft, nontender, nondistended, positive bowel sounds x4 Extremities: +2 pulses bilaterally radialis/ dorsalis pedis, no cyanosis, no edema Neuro: Obtunded Psych: Unable to assess G/U: Positive Young Skin: no rashes, warm and dry Lymphatic: no cervical or axillary lymphadenopathy Results & Data Results & Data ([facility]) Vital Signs (Past 12 Hours) Vital Signs Temp Pulse Resp BP Pulse Ox 12/29/21 06:30 37.4 C 76 18 151/86 H 91 12/29/21 06:00 37.6 C H 80 19 154/89 H 91 12/29/21 05:34 86 181/98 H 12/29/21 05:30 37.7 C H 81 15 181/98 H 91 12/29/21 05:00 37.7 C H 85 20 93 12/29/21 04:30 37.6 C H 86 17 186/103 H 93 12/29/21 04:00 37.8 C H 85 20 185/97 H 93 12/29/21 03:30 37.8 C H 83 20 174/92 H 94 12/29/21 03:00 37.7 C H 82 18 148/98 H 93 12/29/21 02:30 37.6 C H 82 19 160/98 H 93 12/29/21 02:00 36.9 C 81 19 158/97 H 94 12/29/21 01:30 36.1 C L 73 17 125/86 92 12/29/21 01:00 35.4 C L 69 15 140/90 92 12/29/21 00:39 66 131/89 12/29/21 00:30 35.4 C L 67 15 131/89 95 12/29/21 00:00 34.7 C L 63 12 165/89 H 94 12/28/21 23:30 34.8 C L 63 12 163/100 H 94 12/28/21 23:01 35.1 C L 63 10 L 156/93 H 97 12/28/21 23:00 35.1 C L 62 12 94 12/28/21 22:30 35.3 C L 64 13 138/85 93 12/28/21 22:00 35.5 C L 67 13 128/82 94 12/28/21 21:30 35.8 C L 71 13 146/94 H 94 12/28/21 21:01 35.9 C L 77 16 170/92 H 98 12/28/21 21:00 35.9 C L 74 13 96 Coding Level of Care Code Critical Care 1st 30-74 mins Diagnoses Hypertensive urgency I16.0 Delirium tremens F10.231 Encephalopathy G93.40 Hypertension I10 Time Spent (min) 35
[2021-12-29] MEDS: THIAMINE HCL 100 MG in SYRINGE 9 ML IV SCH (10:43)
[2021-12-29] MEDS: FOLIC ACID 1 MG in SYRINGE 9.8 ML IV SCH (10:44)
[2021-12-29] MEDS: cefTRIAXone SODIUM 2,000 MG in DEXTROSE 5% 50 ML IV SCH (10:44)
[2021-12-29 14:47] LABS: 18KDIGG Band REACTIVE; 23KDIGG Band REACTIVE; 23KDIGM Band REACTIVE; 28KDIGG Band REACTIVE; 30KDIGG Band REACTIVE; 39KDIGG Band REACTIVE; 39KDIGM Band NON-REACTIVE; 41KDIGG Band REACTIVE; 41KDIGM Band NON-REACTIVE; 45KDIGG Band NON-REACTIVE; 58KDIGG Band REACTIVE; 66KDIGG Band REACTIVE; 93KDIGG Band REACTIVE; Lyme Antibodies, WB IgG POSITIVE (NEGATIVE); Lyme Antibodies, WB IgM NEGATIVE (NEGATIVE)
[2021-12-29] MEDS: LABETALOL HCL IV 5 MG/ML 20ML IV PRN (16:14)
[2021-12-29] MEDS: hydrALAZINE HCL 20 MG/ML VIAL IV PRN (16:40)
[2021-12-29] MEDS: ICU ELECTROLYTE REPLACEMENT PROTOCOL SCH (18:28)
--- NOTE | 2021-12-29 19:11 | Hospitalist Progress Note ---
Date of Service December 29, 2021 Assessment & Plan (1) Delirium tremens: Plan: Ongoing. Precedex drip continues today; has been on / off over the last few days depending on level of agitation. Ativan dose is being managed (and weaned as tolerated) by ICU attendings. s/p high-dose thiamine x 2 days, now once daily IV. Cont IV fluids & supportive care. Labs remain acceptable. Replace low K. Defer nutrition to ICU attending. NG tube with enteral feedings? PPN? Most recent LFTs largely wnl. (2) Encephalopathy: Plan: Ongoing. Metabolic. And likely some toxic effects from Ativan/precedex/etc. Main culprit -- severe DTs. Cannot rule out Wernicke's encephalopathy. Lyme Western Blot IgG VERY positive. Western blot IgM negative. I can't rule out Lyme contributing to clinical picture - could have early disseminated Lyme or later stage Lyme. For ?Wernicke's -- s/p thiamine 500mg IV TID x 2 days, now IV daily. Will not check a B1 level as it would likely be inaccurate due to copious supplementation given since admission. TSH, B12 levels both wnl. head CT at admission with atrophy/ventriculomegaly but no ICH, CVA, etc. Over the weekend had low-grade fevers (and now mild hypothermia) - infectious w/u sent - cxr, blood cx's, procal, etc. Labs reassuring. No leukocytosis. Cultures remain negative. Remains on rocephin 2gm IV daily for potential Lyme. RPR is nonreactive. Consider repeat ammonia level. Consider VBG given the significant sedation & snoring. when DTs have resolved will need thorough evaluation of mental status; consider psych eval at that time, too, given the collateral information from his sister (chronic, intermittent hallucinations for many years, etc). (3) Positive Lyme disease serology: Plan: Western blot results returned today -- IgM negative; IgG very positive with nearly all bands positive. this would suggest early disseminated Lyme disease or later stage Lyme. since IgM is negative we are not dealing with acute/early stage Lyme. day #3 rocephin 2gm IV daily. the patient had been living in a home in the [facility] near [place] for many years and likely had significant tick exposure. would Rx for a minimum of 2 weeks with rocephin or doxy. use rocephin for now. if after DTs resolve he remains confused, etc - consider LP to exclude [employer] Lyme. (4) Hypertension: Plan: Cont IV beta angelita scheduled. IV hydralazine prn. Needed nicardipine drip briefly a few days ago - not needed since. (5) Alcohol dependence: Plan: See above (6) Hepatitis C: Plan: Chronic, previously seen by ID in 2019 and was offered treatment, however declined at that time. Reportedly has received hep A and B vaccines. Has concurrent alcoholic hepatitis but ast/alt are now close to normal. Ammonia level on 12/23 was wnl. Patient with prior h/o drug abuse and has been incarcerated for illicit drugs in the past. Would benefit from HIV testing once he is able to give consent for such. (7) Hypertensive urgency: Plan: Improved with Rx of DTs and receiving sedation along with IV BP meds as above. Labile BPs depending on level of agitation. Defer Rx to ICU attending. (8) Hypomagnesemia: Plan: replaced resolved mag 1.7 today replace low K today Plan: DVT proph - lovenox FEN - cont maintenance fluids, labs again in am; defer choice of nutrition to ICU attending once DTs are complete will need intensive social work assistance to determine disposition post-discharge and will need psych eval left message for pt's sister yesterday on her voicemail (Bonnie Morris -- [phone] -- she resides in [place]) see my note from 12/25 re: extensive discussion with Bonnie about her brother; copious information given by Bonnie about his medical/social history) Admission and Anticipated Discharge Date Admission Date: December 23, 2021 Subjective patient minimally response (just shifted in the bed some) during my visit remains on precedex and scheduled ativan precedex was resumed yesterday afternoon without the precedex he is very agitated - trying to get out of bed, pulling at things, etc soft mitts remain in place over b/l hands for safety no oral intake once again today/overnight tele by report wnl Review of Systems Review of Systems: Unobtainable due to cognitive status and Unobtainable due to reduced consciousness Physical Exam Physical Exam: gen - sleeping/sedated, comfortable appearing, NAD mouth - MM dry neck - no JVD heart - RRR, s1 s2, no murmur lungs - airation again improved today; occasional crackle, occasional course breath sounds abd - soft, NT, ND, BS+ ext - no edema, pulses 2+ b/l; soft mitts on hands in place vascular - there are 2 areas of enlarged veins on LLE - one area is medial distal anterior thigh (it is not a warm cord), and another on al; there are associated varicose veins; no changes in these findings skin - no rash Results & Data Results & Data ([facility]) Vital Signs (Past 12 Hours) Vital Signs Temp Pulse Resp BP Pulse Ox 12/29/21 18:27 85 157/92 H 12/29/21 17:38 86 12/29/21 17:15 36.7 C 80 13 131/78 95 12/29/21 17:00 36.7 C 85 23 182/117 H 12/29/21 16:45 36.6 C 80 17 202/113 H 12/29/21 16:38 36.4 C L 81 14 202/133 H 12/29/21 16:30 36.2 C L 82 13 215/123 H 12/29/21 16:26 36.3 C L 82 14 217/129 H 12/29/21 16:15 36.4 C L 80 15 12/29/21 16:00 36.3 C L 78 15 214/128 H 12/29/21 15:45 36.1 C L 75 16 99 12/29/21 15:30 35.9 C L 75 16 189/131 H 100 12/29/21 15:15 36.1 C L 62 11 L 99 12/29/21 15:01 36.0 C L 64 13 168/105 H 98 12/29/21 15:00 36.0 C L 63 13 99 12/29/21 14:45 35.9 C L 62 12 97 12/29/21 14:40 36.0 C L 64 15 142/108 H 98 12/29/21 14:30 35.9 C L 63 12 97 12/29/21 14:15 35.8 C L 63 15 99 12/29/21 14:00 35.9 C L 66 14 197/116 H 97 12/29/21 13:45 35.8 C L 59 L 12 96 12/29/21 13:30 35.8 C L 66 15 97 12/29/21 13:15 35.8 C L 66 13 96 12/29/21 13:00 35.8 C L 59 L 12 167/91 H 95 12/29/21 12:56 35.8 C L 59 L 12 153/91 H 95 12/29/21 12:45 35.7 C L 58 L 11 L 94 12/29/21 12:30 35.8 C L 70 14 96 12/29/21 12:18 62 191/100 H 12/29/21 12:15 35.9 C L 70 15 98 12/29/21 12:00 35.9 C L 67 16 191/100 H 98 12/29/21 11:07 36.2 C L 67 10 L 167/99 H 97 12/29/21 11:00 36.3 C L 72 18 97 12/29/21 10:30 36.4 C L 62 14 135/82 95 12/29/21 10:00 36.4 C L 65 16 147/105 H 96 12/29/21 09:30 36.4 C L 68 14 150/87 H 93 12/29/21 09:01 36.5 C 78 18 167/105 H 94 12/29/21 09:00 36.5 C 78 19 95 12/29/21 08:30 36.6 C 66 16 149/92 H 94 12/29/21 08:00 36.8 C 70 17 167/94 H 93 12/29/21 07:30 37.0 C 73 17 168/101 H 93 Laboratory Results Laboratory Results - last 24 hr 12/27/21 12/29/21 12/29/21 04:31 04:57 04:57 WBC 4.80 RBC 4.66 L Hgb 14.3 Hct 42.4 MCV 91.0 MCH 30.7 MCHC 33.7 RDW Std Deviation 47.0 H RDW Coeff of Dutch 14.2 Plt Count 140 MPV 12.9 H Immature Gran % (Auto) 0.2 Neut % (Auto) 52.5 Lymph % (Auto) 19.8 [place] % (Auto) 20.2 Eos % (Auto) 6.7 Baso % (Auto) 0.6 Neut # (Auto) 2.52 Lymph # (Auto) 0.95 L [place] # (Auto) 0.97 H Eos # (Auto) 0.32 Baso # (Auto) 0.03 Immature Gran # (Auto) 0.01 Sodium 142 Potassium 3.2 L D Chloride 109 H Carbon Dioxide 25 Anion Gap 8 BUN 9 Creatinine 0.67 Est Cr Clr Drug Dosing 115.9 Est GFR ( Amer) 115.2 Est GFR (Non-Af Amer) 99.4 BUN/Creatinine Ratio 13.4 Glucose 113 H Calcium 9.4 Phosphorus 3.0 D Magnesium 1.7 Total Bilirubin 0.9 Direct Bilirubin 0.3 H AST 34 ALT 42 Alkaline Phosphatase 56 Total Protein 7.3 Albumin 3.7 Lyme IgG (Western Blot) POSITIVE A Lyme IgG 18 kDa Band REACTIVE A Lyme IgG 23 kDa Band REACTIVE A Lyme IgG 28 kDa Band REACTIVE A Lyme IgG 30 kDa Band REACTIVE A Lyme IgG 39 kDa Band REACTIVE A Lyme IgG 41 kDa Band REACTIVE A Lyme IgG 45 kDa Band NON-REACTIVE Lyme IgG 58 kDa Band REACTIVE A Lyme IgG 66 kDa Band REACTIVE A Lyme IgG 93 kDa Band REACTIVE A Lyme IgM Ab (WB) NEGATIVE Lyme IgM 23 kDa Band REACTIVE A Lyme IgM 39 kDa Band NON-REACTIVE Lyme IgM 41 kDa Band NON-REACTIVE PG Care Time/CCT Total # of Minutes Spent Total Time Spent with Patient: Total time spent is greater than 50% in coordination of care (as documented) at patient's floor/unit and/or counseling patient: Coding Level of Care Code 31888 Subseq Hosp Care Lvl 2 Diagnoses Delirium tremens F10.231 Encephalopathy G93.40 Positive Lyme disease serology R76.8 Hypertension I10 Alcohol dependence F10.251 Complication of substance-induced condition: with hallucinations Substance use status: alcohol-induced psychotic disorder Hepatitis C B19.20 Hypertensive urgency I16.0 Hypomagnesemia E83.42 (1) Alcohol dependence Complication of substance-induced condition: with hallucinations Substance use status: alcohol-induced psychotic disorder Qualified Code(s): 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
[2021-12-29] MEDS: ENOXAPARIN INJ 40 MG/0.4 ML SYR SQ SCH (19:50)
[2021-12-29] MEDS: LORazepam 2 MG/1 ML VIAL IV PRN (19:51)
[2021-12-29 23:56] LABS: Rapid Plasma Reagin Nonreactive (Nonreactive)
[2021-12-30] MEDS: dexMEDEtomidine 200 MCG/50 ML BAG IV SCH ×5 (03:11→22:57)
[2021-12-30] MEDS: LORazepam 2 MG/1 ML VIAL IV SCH ×5 (06:11→20:26)
[2021-12-30] MEDS: METOPROLOL TARTRATE 1 MG/ML VIAL IV SCH ×3 (06:12→19:21)
[2021-12-30] MEDS: D5W AND 1/2NSS 1,000 ML IV SCH ×2 (06:12→20:29)
[2021-12-30 06:31] LABS: BUN Creatinine Ratio 11.1 (10-20); Calcium 9.1 mg/dl (8.5-10.1); Creatinine Clr Calc Pharmacy 123.3 ml/min; Est GFR (African American) 118.2 ml/min; Magnesium 1.7 mg/dl (1.7-2.4); Phosphorus 4.3 mg/dl (2.5-4.9); Potassium 3.8 mmol/L (3.5-5.1)
[2021-12-30] MEDS: LABETALOL HCL IV 5 MG/ML 20ML IV PRN ×4 (07:36→18:57)
[2021-12-30] MEDS: hydrALAZINE HCL 20 MG/ML VIAL IV PRN ×3 (07:53→20:54)
[2021-12-30] MEDS ORDERED: POTASSIUM CHLORIDE 20 MEQ/15 ML UDC NG SCH (08:15)
--- NOTE | 2021-12-30 08:29 | Critical Care Progress Note ---
Date of Service December 30, 2021 Assessment & Plan (1) Hypertensive urgency: (2) Delirium tremens: (3) Encephalopathy: (4) Hypertension: Plan: Impression: 66-year-old male presents to the ICU and what appears to be alcohol withdrawal/delirium tremens requiring IV Ativan and is currently restrained. Neuro - Metabolic encephalopathy -From delirium tremens -CT head without acute intracranial process -Ammonia within normal limits. UDS negative. EtOH negative -Continue thiamine, cannot rule out Wernicke's encephalopathy - Continue folate -Seizure precautions protocol -Follow-up RPR -We will change Ativan dosing from 3 mg every 6 hours to 2 mg every 4 hours. We will wean off Precedex. Cardiac - Hypertensive urgency Likely from DTs Continue with as needed hydralazine to keep SBP less than 150 NG tube to be placed and will start antihypertensives orally Respiratory - No history of pulmonary disease and currently maintaining oxygen saturations on room air without labored breathing. Monitor on continuous pulse ox GI - Transaminitismild, likely secondary to fatty liver disease versus cirrhosis in the setting of alcohol abuse and hepatitis C. Reportedly declined treatment in 2019 for hep C. -Liver ultrasound unremarkable -Ammonia within normal limits -Discriminant factor negative. No indication for steroids -We will place an NG tube and start slow tube feeds. RENAL/LYTES - Creatinine within normal limits. ICU electrolyte protocol ordered. - Strict I's and O's ENDO - No history of diabetes or thyroid disease ICU hyperglycemic protocol HEME - H&H stable, monitor routine CBCs ID - No signs of infection. However, Lyme antibody is positive. Patient started on Rocephin per hospitalist team. --Prophylaxis VTE: Lovenox GI: None Lines: Peripheral ultrasound-guided Diet: NPO I have personally spent 33 minutes of critical care time in the direct management of this patient. This is a life/limb threatening event. This includes time spent evaluating patient, direct bedside care, chart review, placing orders, interpretation of diagnostic studies, discussion with consultants, patient, and family members, as well as other required patient management activities. This time is exclusive of all separately billable procedures, and teaching time and separate from and in addition to any other critical care service time. Please note the above document was generated using voice recognition software. It may contain grammatical, syntax or spelling errors. Admission and Anticipated Discharge Date Admission Date: December 23, 2021 Subjective Patient not responsive to commands, but does move limbs spontaneously. Currently on low-dose Precedex. He is receiving scheduled Ativan. Review of Systems Review of Systems: All systems reviewed & are unremarkable except as noted in HPI & below Physical Exam Physical Exam: Constitutional: No acute distress HEENT: EOMI, PERRLA Respiratory system: Diminished bilaterally. No increased work of breathing. CVS: S1-S2 positive, no murmurs or gallops Abdomen: Soft, nontender, nondistended, positive bowel sounds x4 Extremities: +2 pulses bilaterally radialis/ dorsalis pedis, no cyanosis, no edema Neuro: Obtunded Psych: Unable to assess G/U: Positive Young Skin: no rashes, warm and dry Lymphatic: no cervical or axillary lymphadenopathy Results & Data Results & Data ([facility]) Vital Signs (Past 12 Hours) Vital Signs Temp Pulse Resp BP Pulse Ox 12/30/21 06:12 69 205/124 H 12/30/21 06:00 35.4 C L 72 14 205/124 H 96 12/30/21 05:45 35.3 C L 62 11 L 195/105 H 93 12/30/21 05:30 35.4 C L 71 16 174/110 H 95 12/30/21 05:15 35.4 C L 58 L 12 193/113 H 94 12/30/21 05:01 35.4 C L 56 L 12 189/99 H 94 12/30/21 05:00 35.5 C L 56 L 12 94 12/30/21 04:46 35.5 C L 59 L 12 186/103 H 95 12/30/21 04:30 35.5 C L 57 L 12 157/116 H 95 12/30/21 04:15 35.6 C L 63 12 172/94 H 94 12/30/21 04:00 35.6 C L 58 L 14 156/102 H 93 12/30/21 03:45 35.6 C L 61 12 175/109 H 93 12/30/21 03:30 35.7 C L 62 12 160/123 H 93 12/30/21 03:15 35.7 C L 59 L 12 184/112 H 94 12/30/21 03:00 35.8 C L 63 12 185/112 H 93 12/30/21 02:45 35.8 C L 63 12 168/123 H 93 12/30/21 02:30 35.8 C L 64 12 176/97 H 93 12/30/21 02:15 35.9 C L 63 13 184/97 H 92 12/30/21 02:00 35.9 C L 65 13 166/101 H 93 12/30/21 01:45 36.0 C L 65 13 173/104 H 92 12/30/21 01:30 36.0 C L 65 13 162/106 H 93 12/30/21 01:15 36.0 C L 67 13 180/96 H 93 12/30/21 01:00 36.1 C L 66 13 165/101 H 93 12/30/21 00:45 36.1 C L 67 13 140/104 H 92 12/30/21 00:30 36.2 C L 69 13 147/103 H 92 12/30/21 00:15 36.2 C L 68 13 161/108 H 92 12/30/21 00:00 36.2 C L 69 13 163/95 H 93 12/29/21 23:45 36.3 C L 71 15 169/99 H 93 12/29/21 23:30 36.3 C L 76 17 193/105 H 94 12/29/21 23:15 36.3 C L 77 16 176/107 H 95 12/29/21 23:01 36.3 C L 81 17 190/97 H 95 12/29/21 23:00 36.2 C L 81 18 96 12/29/21 22:45 36.3 C L 71 15 164/97 H 93 12/29/21 22:30 36.3 C L 69 16 144/90 H 93 12/29/21 22:15 36.3 C L 70 15 128/85 93 12/29/21 22:00 36.3 C L 72 14 151/85 H 92 12/29/21 21:45 36.2 C L 71 14 134/85 93 12/29/21 21:30 36.6 C 71 14 141/89 H 93 12/29/21 21:15 36.7 C 72 14 148/88 H 92 12/29/21 21:00 36.7 C 73 13 149/98 H 96 12/29/21 20:46 36.6 C 82 18 186/104 H 12/29/21 20:31 36.3 C L 83 16 165/114 H 97 Coding Level of Care Code Critical Care 1st 30-74 mins Diagnoses Hypertensive urgency I16.0 Delirium tremens F10.231 Encephalopathy G93.40 Hypertension I10 Time Spent (min) 33
[2021-12-30] MEDS: ICU ELECTROLYTE REPLACEMENT PROTOCOL SCH ×2 (09:47→19:16)
[2021-12-30] MEDS: MAGNESIUM SULFATE / D5W 1 GM/100 ML BAG IV SCH ×4 (09:53→14:43)
[2021-12-30] MEDS: FOLIC ACID 1 MG in SYRINGE 9.8 ML IV SCH (09:53)
[2021-12-30] MEDS: THIAMINE HCL 100 MG in SYRINGE 9 ML IV SCH (09:53)
[2021-12-30] MEDS: POTASSIUM CHLORIDE / WTR 10 MEQ/100 ML PLCT IV SCH ×9 (09:53→23:31)
[2021-12-30] MEDS: cefTRIAXone SODIUM 2,000 MG in DEXTROSE 5% 50 ML IV SCH (09:54)
[2021-12-30] MEDS: LORazepam 2 MG/1 ML VIAL IV PRN ×3 (12:48→18:57)
--- NOTE | 2021-12-30 15:30 | Hospitalist Progress Note ---
Date of Service December 30, 2021 Assessment & Plan (1) Delirium tremens: Plan: Ongoing. Precedex drip continues today; has been on / off over the last few days depending on level of agitation. Ativan dose is being managed (and weaned as tolerated) by ICU attendings. Soraida nged to 2mg IV q4h scheduled today s/p high-dose thiamine x 2 days, now once daily IV. Cont IV fluids & supportive care. NGT placement trialed today and not able to be passed through nose for tube feeds-will trial again later Labs remain acceptable. (2) Encephalopathy: Plan: Ongoing. Metabolic. And likely some toxic effects from Ativan/precedex/etc. Main culprit -- severe DTs. Cannot rule out Wernicke's encephalopathy although this has been adequately treated at this point. Lyme Western Blot IgG positive. Western blot IgM with 1/3 positive. I can't rule out Lyme contributing to clinical picture - could have early disseminated Lyme or later stage Lyme. He did also have positive Lyme in 2017 but unclear if he was treated at that time For ?Wernicke's -- s/p thiamine 500mg IV TID x 2 days, now IV daily. Will not check a B1 level as it would likely be inaccurate due to copious supplementation given since admission. TSH, B12 levels both wnl. head CT at admission with atrophy/ventriculomegaly but no ICH, CVA, etc. Over the weekend had low-grade fevers (and now mild hypothermia) - infectious w/u sent - cxr, blood cx's, procal, etc. Labs reassuring. No leukocytosis. Cultures remain negative. Remains on rocephin 2gm IV daily for potential Lyme. RPR is nonreactive. Consider repeat ammonia level. when DTs have resolved will need thorough evaluation of mental status; consider psych eval at that time, too, given the collateral information from his sister (chronic, intermittent hallucinations for many years, etc). (3) Positive Lyme disease serology: Plan: Western blot results returned today -- IgM negative; IgG very positive with nearly all bands positive. this would suggest early disseminated Lyme disease or later stage Lyme. since IgM is negative we are not dealing with acute/early stage Lyme. As above, he was also this positive in 2017 but unclear if had treatment at that time day #4 rocephin 2gm IV daily. the patient had been living in a home in the [facility] [place] for many years and likely had significant tick exposure. would Rx for a minimum of 2 weeks with rocephin or doxy. use rocephin for now. if after DTs resolve he remains confused, etc - consider LP to exclude [employer] Lyme. (4) Hypertension: Plan: Cont IV beta angelita scheduled. IV hydralazine prn. Needed nicardipine drip briefly a few days ago - not needed since. (5) Alcohol dependence: Plan: See above (6) Hepatitis C: Plan: Chronic, previously seen by ID in 2019 and was offered treatment, however declined at that time. Reportedly has received hep A and B vaccines. Has concurrent alcoholic hepatitis but ast/alt are now close to normal. Ammonia level on 12/23 was wnl. Patient with prior h/o drug abuse and has been incarcerated for illicit drugs in the past. Would benefit from HIV testing once he is able to give consent for such. (7) Hypertensive urgency: Plan: Improved with Rx of DTs and receiving sedation along with IV BP meds as above. Labile BPs depending on level of agitation. Defer Rx to ICU attending. (8) Hypomagnesemia: Plan: replaced resolved mag 1.7 today Plan: DVT proph - lovenox FEN - cont maintenance fluids, labs again in am; defer choice of nutrition to ICU attending once DTs are complete will need intensive social work assistance to determine disposition post-discharge and will need psych eval Admission and Anticipated Discharge Date Admission Date: December 23, 2021 Subjective Pt lethargic, has recieved Ativan 8mg IV total so far for day shift and is back on Precedex gtt. He finally is able to respond to me when I ask how he is feeling and says "bad." Not able to answer any other questions. Tele with NSR, normal rates Review of Systems Review of Systems: All systems reviewed & are unremarkable except as noted in HPI & below Physical Exam Constitutional: WD/WN, vitals as above Eyes: PERRL, conjunctivae normal, anicteric sclerae Neck: trachea midline, no thyromegaly Respiratory: normal respiratory effort, lungs clear to auscultation Cardiovascular: RRR, no murmur, no edema Chest (Breasts): Chest: normal inspection of chest Gastrointestinal (Abdomen): normal bowel sounds, soft, nontender, no hepatosplenomegaly Musculoskeletal: Extremities: extremities normal to inspection; no cyanosis and no clubbing Skin: no rashes, warm and dry Neurologic: moves all extremities and awake; no focal motor deficits Psychiatric: Orientation: alert; + not oriented x 3 Eye Contact: + fair eye contact Lymphatic: no lymphedema Results & Data Results & Data ([facility]) Vital Signs (Past 12 Hours) Vital Signs Temp Pulse Resp BP Pulse Ox 12/30/21 12:04 82 128/96 12/30/21 08:00 69 12/30/21 06:12 69 205/124 H 12/30/21 06:00 35.4 C L 72 14 205/124 H 96 12/30/21 05:45 35.3 C L 62 11 L 195/105 H 93 12/30/21 05:30 35.4 C L 71 16 174/110 H 95 12/30/21 05:15 35.4 C L 58 L 12 193/113 H 94 12/30/21 05:01 35.4 C L 56 L 12 189/99 H 94 12/30/21 05:00 35.5 C L 56 L 12 94 12/30/21 04:46 35.5 C L 59 L 12 186/103 H 95 12/30/21 04:30 35.5 C L 57 L 12 157/116 H 95 12/30/21 04:15 35.6 C L 63 12 172/94 H 94 12/30/21 04:00 35.6 C L 58 L 14 156/102 H 93 12/30/21 03:45 35.6 C L 61 12 175/109 H 93 12/30/21 03:30 35.7 C L 62 12 160/123 H 93 Laboratory Results 12/30/21 12/27/21 Range/Units 05:14 04:31 Sodium 141 (136-145) mmol/L Potassium 3.8 (3.5-5.1) mmol/L Chloride 108 H (98-107) mmol/L Carbon Dioxide 27 (21-32) mmol/L Anion Gap 6 (3-11) BUN 7 (6-23) mg/dl Creatinine 0.63 (0.6-1.4) mg/dl Est Cr Clr Drug Dosing 123.3 ml/min Est GFR ( Amer) 118.2 ml/min Est GFR (Non-Af Amer) 102.0 ml/min BUN/Creatinine Ratio 11.1 (10-20) Glucose 116 H (70-99(Fasting)) mg/dl Calcium 9.1 (8.5-10.1) mg/dl Phosphorus 4.3 D (2.5-4.9) mg/dl Magnesium 1.7 (1.7-2.4) mg/dl RPR Nonreactive (Nonreactive) PG Care Time/CCT Total # of Minutes Spent Total Time Spent with Patient: Total time spent is greater than 50% in coordination of care (as documented) at patient's floor/unit and/or counseling patient: Coding Level of Care Code 84982 Subseq Hosp Care Lvl 1 Diagnoses Delirium tremens F10.231 Encephalopathy G93.40 Positive Lyme disease serology R76.8 Hypertension I10 Alcohol dependence F10.251 Complication of substance-induced condition: with hallucinations Substance use status: alcohol-induced psychotic disorder Hepatitis C B19.20 Hypertensive urgency I16.0 Hypomagnesemia E83.42 (1) Alcohol dependence Complication of substance-induced condition: with hallucinations Substance use status: alcohol-induced psychotic disorder Qualified Code(s): 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
[2021-12-30 18:17] LABS: BUN Creatinine Ratio 10.6 (10-20); Calcium 9.1 mg/dl (8.5-10.1); Creatinine Clr Calc Pharmacy 117.7 ml/min; Magnesium 2.5 mg/dl (1.7-2.4); Potassium 3.1 mmol/L (3.5-5.1)
[2021-12-30] MEDS: ENOXAPARIN INJ 40 MG/0.4 ML SYR SQ SCH (20:27)
[2021-12-31] MEDS: METOPROLOL TARTRATE 1 MG/ML VIAL IV SCH ×4 (00:27→18:15)
[2021-12-31] MEDS: LORazepam 2 MG/1 ML VIAL IV SCH ×6 (00:27→19:38)
[2021-12-31] MEDS: POTASSIUM CHLORIDE / WTR 10 MEQ/100 ML PLCT IV SCH ×6 (00:28→22:58)
[2021-12-31] MEDS: dexMEDEtomidine 200 MCG/50 ML BAG IV SCH ×7 (01:32→22:35)
[2021-12-31 06:56] LABS: BUN Creatinine Ratio 10.3 (10-20); Blood Urea Nitrogen 6 mg/dl (6-23); Calcium 8.8 mg/dl (8.5-10.1); Carbon Dioxide 23 mmol/L (21-32); Chloride 109 mmol/L (98-107); Creatinine Clr Calc Pharmacy 137.8 ml/min; Est GFR (African American) 122.3 ml/min; Est GFR (Non-African American) 105.5 ml/min; Glucose 109 mg/dl (70-99(Fasting))
--- NOTE | 2021-12-31 09:15 | Critical Care Progress Note ---
Date of Service December 31, 2021 Assessment & Plan (1) Hypertensive urgency: (2) Delirium tremens: (3) Encephalopathy: (4) Hypertension: Plan: Impression: 66-year-old male presents to the ICU and what appears to be alcohol withdrawal/delirium tremens requiring IV Ativan and is currently restrained. Neuro - Metabolic encephalopathy -From delirium tremens -CT head without acute intracranial process -Ammonia within normal limits. UDS negative. EtOH negative -Continue thiamine, cannot rule out Wernicke's encephalopathy - Continue folate -Seizure precautions protocol -RPR nonreactive -Continue as needed Ativan and Ativan 2 mg every 2 hours scheduled. Cardiac - Hypertensive urgency Likely from DTs Continue with as needed hydralazine to keep SBP less than 150 NG tube to be placed and will start antihypertensives orally Respiratory - No history of pulmonary disease and currently maintaining oxygen saturations on room air without labored breathing. Monitor on continuous pulse ox GI - Transaminitismild, likely secondary to fatty liver disease versus cirrhosis in the setting of alcohol abuse and hepatitis C. Reportedly declined treatment in 2019 for hep C. -Liver ultrasound unremarkable -Ammonia within normal limits -Discriminant factor negative. No indication for steroids -We will reattempt NG tube placement today. RENAL/LYTES - Creatinine within normal limits. ICU electrolyte protocol ordered. - Strict I's and O's ENDO - No history of diabetes or thyroid disease ICU hyperglycemic protocol HEME - H&H stable, monitor routine CBCs ID - No signs of infection. However, Lyme antibody is positive. Patient started on Rocephin per hospitalist team. --Prophylaxis VTE: Lovenox GI: None Lines: Peripheral ultrasound-guided Diet: NPO due to concerns of aspiration I have personally spent 33 minutes of critical care time in the direct management of this patient. This is a life/limb threatening event. This includes time spent evaluating patient, direct bedside care, chart review, placing orders, interpretation of diagnostic studies, discussion with consultants, patient, and family members, as well as other required patient management activities. This time is exclusive of all separately billable procedures, and teaching time and separate from and in addition to any other critical care service time. Please note the above document was generated using voice recognition software. It may contain grammatical, syntax or spelling errors. Admission and Anticipated Discharge Date Admission Date: December 23, 2021 Subjective Patient continues to be delirious and remains on Precedex infusion. NG tube placement yesterday was unsuccessful with multiple attempts. Hemodynamically stable. Saturating well on room air. Review of Systems Review of Systems: All systems reviewed & are unremarkable except as noted in HPI & below Physical Exam Physical Exam: Constitutional: No acute distress HEENT: EOMI, PERRLA Respiratory system: Diminished bilaterally. No increased work of breathing. CVS: S1-S2 positive, no murmurs or gallops Abdomen: Soft, nontender, nondistended, positive bowel sounds x4 Extremities: +2 pulses bilaterally radialis/ dorsalis pedis, no cyanosis, no edema Neuro: Follows simple commands. Psych: Unable to assess G/U: Positive Young Skin: no rashes, warm and dry Lymphatic: no cervical or axillary lymphadenopathy Results & Data Results & Data ([facility]) Vital Signs (Past 12 Hours) Vital Signs Temp Pulse Pulse Resp BP BP Pulse Ox 12/31/21 08:00 36.8 C 80 18 162/92 H 96 12/31/21 07:00 36.9 C 74 15 139/103 H 93 12/31/21 06:45 36.9 C 75 16 158/92 H 94 12/31/21 06:30 37.0 C 76 16 158/97 H 93 12/31/21 06:15 37.0 C 74 17 150/90 H 93 12/31/21 06:00 37.0 C 75 15 146/86 H 93 12/31/21 05:50 75 156/81 H 12/31/21 05:45 37.0 C 76 15 156/81 H 93 12/31/21 05:30 37.1 C 76 17 151/90 H 93 12/31/21 05:15 37.0 C 77 15 155/82 H 93 12/31/21 05:00 146/90 H 12/31/21 04:45 37.0 C 77 14 164/92 H 93 12/31/21 04:30 36.9 C 82 19 168/89 H 93 12/31/21 04:16 36.9 C 82 18 186/102 H 94 12/31/21 04:00 36.8 C 77 17 140/95 93 12/31/21 03:45 36.8 C 76 18 156/94 H 93 12/31/21 03:30 36.8 C 79 17 149/89 H 93 12/31/21 03:15 36.8 C 77 17 140/87 92 12/31/21 03:00 36.8 C 77 16 153/86 H 93 12/31/21 02:45 36.7 C 78 17 146/91 H 93 12/31/21 02:30 36.7 C 76 15 149/87 H 93 12/31/21 02:15 36.7 C 76 16 142/84 H 93 12/31/21 02:00 36.7 C 77 16 138/82 93 12/31/21 01:45 36.7 C 76 15 144/87 H 93 12/31/21 01:30 36.7 C 76 16 137/79 93 12/31/21 01:15 36.7 C 76 15 141/79 H 93 12/31/21 01:00 36.7 C 76 14 133/79 93 12/31/21 00:45 36.7 C 75 15 126/73 93 12/31/21 00:30 36.7 C 76 15 130/74 93 12/31/21 00:27 76 123/76 12/31/21 00:15 36.6 C 76 15 123/76 93 12/31/21 00:00 36.6 C 76 15 128/69 93 12/30/21 23:45 36.6 C 76 16 115/68 93 12/30/21 23:30 36.6 C 77 15 128/74 93 12/30/21 23:15 36.5 C 77 15 119/69 93 12/30/21 23:00 36.5 C 78 14 110/77 93 12/30/21 22:45 36.5 C 78 14 126/72 93 12/30/21 22:30 36.5 C 79 14 113/72 94 12/30/21 22:15 36.5 C 79 13 135/72 94 12/30/21 22:00 36.5 C 84 13 139/85 95 12/30/21 21:45 36.5 C 83 15 137/100 90 12/30/21 21:31 36.0 C L 86 17 147/95 H 95 12/30/21 21:30 36.0 C L 85 15 94 12/30/21 21:16 36.3 C L 85 16 155/98 H 92 Coding Level of Care Code Critical Care 1st 30-74 mins Diagnoses Hypertensive urgency I16.0 Delirium tremens F10.231 Encephalopathy G93.40 Hypertension I10 Time Spent (min) 33
[2021-12-31 09:16] LABS: Potassium 3.6 mmol/L (3.5-5.1)
[2021-12-31] MEDS: cefTRIAXone SODIUM 2,000 MG in DEXTROSE 5% 50 ML IV SCH (09:27)
[2021-12-31] MEDS: FOLIC ACID 1 MG in SYRINGE 9.8 ML IV SCH (09:27)
[2021-12-31] MEDS: THIAMINE HCL 100 MG in SYRINGE 9 ML IV SCH (09:28)
--- NOTE | 2021-12-31 09:39 | Hospitalist Progress Note ---
Date of Service December 31, 2021 Assessment & Plan (1) Delirium tremens: Plan: Ongoing, severe, remains with significant agitation with attempts to wean Precedex despite being on scheduled ativan Precedex drip continues today; has been on / off over the last few days de pending on level of agitation. Ativan dose is being managed (and weaned as tolerated) by ICU attendings. Continue Ativan 2mg IV q4h scheduled and 2mg IV prn AWSS greater than 7 s/p high-dose thiamine x 2 days, now once daily IV. Cont IV fluids & supportive care. NGT placement failed multiple attempts--> if cannot get NGT, mildred need to consider PPN or TPN Labs remain acceptable-replacing K+ (2) Encephalopathy: Plan: Ongoing. Metabolic. And likely some toxic effects from Ativan/precedex/etc. Main culprit -- severe DTs. Cannot rule out Wernicke's encephalopathy although this has been adequately treated at this point. Lyme Western Blot IgG positive. Western blot IgM with 1/3 positive. I can't rule out Lyme contributing to clinical picture - could have early disseminated Lyme or later stage Lyme. He did also have positive Lyme in 2017 but unclear if he was treated at that time For ?Wernicke's -- s/p thiamine 500mg IV TID x 2 days, now IV daily. Will not check a B1 level as it would likely be inaccurate due to copious supplementation given since admission. TSH, B12 levels both wnl. head CT at admission with atrophy/ventriculomegaly but no ICH, CVA, etc. Over the weekend had low-grade fevers (and now mild hypothermia) - infectious w/u sent - cxr, blood cx's, procal, etc. Labs reassuring. No leukocytosis. Cultures remain negative. Remains on rocephin 2gm IV daily for potential Lyme. RPR is nonreactive. Consider repeat ammonia level. when DTs have resolved will need thorough evaluation of mental status; consider psych eval at that time, too, given the collateral information from his sister (chronic, intermittent hallucinations for many years, etc). (3) Positive Lyme disease serology: Plan: Western blot - IgM negative; IgG very positive with nearly all bands positive. this would suggest early disseminated Lyme disease or later stage Lyme. since IgM is negative we are not dealing with acute/early stage Lyme. As above, he was also this positive in 2017 but unclear if had treatment at that time day #5 rocephin 2gm IV daily. the patient had been living in a home in the [place] for many years and likely had significant tick exposure. would Rx for 4 weeks with rocephin and transtiion to po doxy once taking po if after DTs resolve he remains confused, etc - consider LP to exclude [employer] Lyme. (4) Hypertension: Plan: Cont IV beta angelita scheduled until NGT placed or taking po. IV hydralazine prn. Needed nicardipine drip briefly a few days ago - not needed since. (5) Alcohol dependence: Plan: See above (6) Hepatitis C: Plan: Chronic, previously seen by ID in 2019 and was offered treatment, however declined at that time. Reportedly has received hep A and B vaccines. Has concurrent alcoholic hepatitis but ast/alt are now close to normal. Ammonia level on 12/23 was wnl. Patient with prior h/o drug abuse and has been incarcerated for illicit drugs in the past. Would benefit from HIV testing once he is able to give consent for such. 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 Labile BPs depending on level of agitation. hydralazine, labetalol prn scheduled lopressor IV (8) Hypomagnesemia: Plan: replaced resolved follow level Plan: DVT proph - lovenox FEN - cont maintenance fluids, labs again in am; defer choice of nutrition to ICU attending Dispo-continued stay in ICU--> once DTs are complete will need intensive social work assistance to determine disposition post-discharge and will need psych eval Admission and Anticipated Discharge Date Admission Date: December 23, 2021 Subjective Attempts to wean off Precedex last night were unsuccessful due to severe agitation. He remains in restraints/soft mitts. He was very lethargic and sleeping when I saw him and had just received his scheduled ativan. Multiple attempts at NGT made and also unsuccessful. He has not had any nutrition now in 7-8 days. Remains on room air and POx normal. I attended ICU rounds and discussed care with Marine Structural Designer and multidisciplinary team Tele with: Review of Systems Review of Systems: Unobtainable due to cognitive status and Unobtainable due to reduced consciousness Physical Exam Constitutional: WD/WN, vitals as above Neck: trachea midline, no thyromegaly Respiratory: normal respiratory effort, lungs clear to auscultation Cardiovascular: RRR, no murmur, no edema Chest (Breasts): Chest: normal inspection of chest Gastrointestinal (Abdomen): normal bowel sounds, soft, nontender, no hepatosplenomegaly Musculoskeletal: Extremities: extremities normal to inspection; no cyanosis and no clubbing Skin: no rashes, warm and dry Neurologic: moves all extremities and awake; no focal motor deficits Psychiatric: Orientation: + not alert and + not oriented x 3 Genitourinary: no penis abnormality (Young cath in place) Lymphatic: no lymphedema Results & Data Results & Data ([facility]) Vital Signs (Past 12 Hours) Vital Signs Temp Pulse Pulse Resp BP BP Pulse Ox 12/31/21 08:00 36.8 C 80 18 162/92 H 96 12/31/21 07:00 36.9 C 74 15 139/103 H 93 12/31/21 06:45 36.9 C 75 16 158/92 H 94 12/31/21 06:30 37.0 C 76 16 158/97 H 93 12/31/21 06:15 37.0 C 74 17 150/90 H 93 12/31/21 06:00 37.0 C 75 15 146/86 H 93 12/31/21 05:50 75 156/81 H 12/31/21 05:45 37.0 C 76 15 156/81 H 93 12/31/21 05:30 37.1 C 76 17 151/90 H 93 12/31/21 05:15 37.0 C 77 15 155/82 H 93 12/31/21 05:00 146/90 H 12/31/21 04:45 37.0 C 77 14 164/92 H 93 12/31/21 04:30 36.9 C 82 19 168/89 H 93 12/31/21 04:16 36.9 C 82 18 186/102 H 94 12/31/21 04:00 36.8 C 77 17 140/95 93 12/31/21 03:45 36.8 C 76 18 156/94 H 93 12/31/21 03:30 36.8 C 79 17 149/89 H 93 12/31/21 03:15 36.8 C 77 17 140/87 92 12/31/21 03:00 36.8 C 77 16 153/86 H 93 12/31/21 02:45 36.7 C 78 17 146/91 H 93 12/31/21 02:30 36.7 C 76 15 149/87 H 93 12/31/21 02:15 36.7 C 76 16 142/84 H 93 12/31/21 02:00 36.7 C 77 16 138/82 93 12/31/21 01:45 36.7 C 76 15 144/87 H 93 12/31/21 01:30 36.7 C 76 16 137/79 93 12/31/21 01:15 36.7 C 76 15 141/79 H 93 12/31/21 01:00 36.7 C 76 14 133/79 93 12/31/21 00:45 36.7 C 75 15 126/73 93 12/31/21 00:30 36.7 C 76 15 130/74 93 12/31/21 00:27 76 123/76 12/31/21 00:15 36.6 C 76 15 123/76 93 12/31/21 00:00 36.6 C 76 15 128/69 93 12/30/21 23:45 36.6 C 76 16 115/68 93 12/30/21 23:30 36.6 C 77 15 128/74 93 12/30/21 23:15 36.5 C 77 15 119/69 93 12/30/21 23:00 36.5 C 78 14 110/77 93 12/30/21 22:45 36.5 C 78 14 126/72 93 12/30/21 22:30 36.5 C 79 14 113/72 94 12/30/21 22:15 36.5 C 79 13 135/72 94 12/30/21 22:00 36.5 C 84 13 139/85 95 12/30/21 21:45 36.5 C 83 15 137/100 90 Laboratory Results 12/31/21 12/31/21 12/30/21 Range/Units 08:42 05:09 17:12 Sodium 141 TNP 140 (136-145) mmol/L Potassium 3.6 TNP 3.1 L (3.5-5.1) mmol/L Chloride 109 H 107 (98-107) mmol/L Carbon Dioxide 23 26 (21-32) mmol/L Anion Gap TNP 7 (3-11) BUN 6 7 (6-23) mg/dl Creatinine 0.58 L 0.66 (0.6-1.4) mg/dl Est Cr Clr Drug Dosing 137.8 117.7 ml/min Est GFR ( Amer) 122.3 116.0 ml/min Est GFR (Non-Af Amer) 105.5 100.0 ml/min BUN/Creatinine Ratio 10.3 10.6 (10-20) Glucose 109 H 124 H (70-99(Fasting)) mg/dl Calcium 8.8 9.1 (8.5-10.1) mg/dl Phosphorus 4.0 TNP Magnesium 2.0 TNP 2.5 H (1.7-2.4) mg/dl PG Care Time/CCT Total # of Minutes Spent Total Time Spent with Patient: Total time spent is greater than 50% in coordination of care (as documented) at patient's floor/unit and/or counseling patient: Coding Level of Care Code 45764 Subseq Hosp Care Lvl 3 Diagnoses Delirium tremens F10.231 Encephalopathy G93.40 Positive Lyme disease serology R76.8 Hypertension I10 Alcohol dependence F10.251 Complication of substance-induced condition: with hallucinations Substance use status: alcohol-induced psychotic disorder Hepatitis C B19.20 Hypertensive urgency I16.0 Hypomagnesemia E83.42 (1) Alcohol dependence Complication of substance-induced condition: with hallucinations Substance use status: alcohol-induced psychotic disorder Qualified Code(s): 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
[2021-12-31] MEDS ORDERED: LORazepam 2 MG/1 ML VIAL IV PRN ×2 (10:09)
[2021-12-31] MEDS ORDERED: ATIVAN IV ALCOHOL WITHDRAWL IV PRN (10:09)
[2021-12-31] MEDS: ICU ELECTROLYTE REPLACEMENT PROTOCOL SCH ×2 (10:22→19:50)
[2021-12-31] MEDS ORDERED: POTASSIUM CHLORIDE / WTR 10 MEQ/100 ML PLCT IV ONE (10:45)
[2021-12-31] MEDS ORDERED: MAGNESIUM SULFATE / D5W 1 GM/100 ML BAG IV ONE (11:00)
[2021-12-31] MEDS: THIAMINE HCL 250 MG in SODIUM CHLORIDE 0.9% 50 ML IV SCH (12:18)
[2021-12-31] MEDS: D5W AND 1/2NSS 1,000 ML IV SCH (12:19)
[2021-12-31 19:49] LABS: Potassium 3.4 mmol/L (3.5-5.1)
[2021-12-31] MEDS: hydrALAZINE HCL 20 MG/ML VIAL IV PRN (20:08)
[2021-12-31] MEDS: MAGNESIUM SULFATE / D5W 1 GM/100 ML BAG IV SCH ×2 (20:31→22:35)
[2021-12-31] MEDS: ENOXAPARIN INJ 40 MG/0.4 ML SYR SQ SCH (22:19)
[2022-01-01] MEDS: LORazepam 2 MG/1 ML VIAL IV SCH ×6 (00:02→20:05)
[2022-01-01] MEDS: METOPROLOL TARTRATE 1 MG/ML VIAL IV SCH ×4 (00:02→18:23)
[2022-01-01] MEDS: POTASSIUM CHLORIDE / WTR 10 MEQ/100 ML PLCT IV SCH ×9 (00:32→11:25)
[2022-01-01] MEDS: dexMEDEtomidine 200 MCG/50 ML BAG IV SCH ×6 (02:08→22:39)
[2022-01-01] MEDS: LABETALOL HCL IV 5 MG/ML 20ML IV PRN (03:37)
[2022-01-01] MEDS: D5W AND 1/2NSS 1,000 ML IV SCH ×3 (05:40→20:09)
[2022-01-01] MEDS: hydrALAZINE HCL 20 MG/ML VIAL IV PRN ×2 (05:49→15:43)
[2022-01-01 06:21] LABS: BUN Creatinine Ratio 12.7 (10-20); Calcium 8.9 mg/dl (8.5-10.1); Creatinine Clr Calc Pharmacy 123.1 ml/min; Est GFR (African American) 118.2 ml/min; Magnesium 1.9 mg/dl (1.7-2.4); Phosphorus 3.5 mg/dl (2.5-4.9); Potassium 3.7 mmol/L (3.5-5.1)
[2022-01-01] MEDS: ICU ELECTROLYTE REPLACEMENT PROTOCOL SCH ×2 (06:27→18:24)
[2022-01-01] MEDS: MAGNESIUM SULFATE / D5W 1 GM/100 ML BAG IV SCH ×2 (06:37→08:30)
[2022-01-01] MEDS: cefTRIAXone SODIUM 2,000 MG in DEXTROSE 5% 50 ML IV SCH (08:52)
[2022-01-01] MEDS: THIAMINE HCL 250 MG in SODIUM CHLORIDE 0.9% 50 ML IV SCH (08:52)
[2022-01-01] MEDS: FOLIC ACID 1 MG in SYRINGE 9.8 ML IV SCH (08:53)
--- NOTE | 2022-01-01 09:21 | Critical Care Progress Note ---
Date of Service January 01, 2022 Assessment & Plan (1) Hypertensive urgency: (2) Delirium tremens: (3) Encephalopathy: (4) Hypertension: Plan: Impression: 66-year-old male presents to the ICU and what appears to be alcohol withdrawal/delirium tremens requiring IV Ativan and is currently restrained. Neuro - Metabolic encephalopathy - delirium tremens -CT head without acute intracranial process -Ammonia within normal limits. UDS negative. EtOH negative -Continue thiamine, cannot rule out Wernicke's encephalopathy - Continue folate -Seizure precautions protocol -RPR nonreactive -Continue as needed Ativan and Ativan 2 mg every 2 hours scheduled. We will continue to wean Precedex. Cardiac - Hypertensive urgency Likely from DTs Continue with as needed hydralazine to keep SBP less than 170 Will ask GI with placing NG tube given difficulties with placement. Respiratory - No history of pulmonary disease and currently maintaining oxygen saturations on room air without labored breathing. Monitor on continuous pulse ox GI - Transaminitismild, likely secondary to fatty liver disease versus cirrhosis in the setting of alcohol abuse and hepatitis C. Reportedly declined treatment in 2019 for hep C. -Liver ultrasound unremarkable -Ammonia within normal limits -Discriminant factor negative. No indication for steroids -We will reattempt NG tube placement today. RENAL/LYTES - Creatinine within normal limits. ICU electrolyte protocol ordered. - Strict I's and O's ENDO - No history of diabetes or thyroid disease ICU hyperglycemic protocol HEME - H&H stable, monitor routine CBCs ID - No signs of infection. However, Lyme antibody is positive. Patient started on Rocephin per hospitalist team. --Prophylaxis VTE: Lovenox GI: None Lines: Peripheral ultrasound-guided Diet: NPO due to concerns of aspiration I have personally spent 31 minutes of critical care time in the direct management of this patient. This is a life/limb threatening event. This includes time spent evaluating patient, direct bedside care, chart review, placing orders, interpretation of diagnostic studies, discussion with consultants, patient, and family members, as well as other required patient management activities. This time is exclusive of all separately billable procedures, and teaching time and separate from and in addition to any other critical care service time. Please note the above document was generated using voice recognition software. It may contain grammatical, syntax or spelling errors. Admission and Anticipated Discharge Date Admission Date: December 23, 2021 Subjective Patient seen and examined. Remains very delirious and lethargic. Currently on a Precedex infusion and receiving Ativan Review of Systems Review of Systems: Unobtainable due to cognitive status Physical Exam Physical Exam: Constitutional: No acute distress HEENT: EOMI, PERRLA Respiratory system: Diminished bilaterally. No increased work of breathing. CVS: S1-S2 positive, no murmurs or gallops Abdomen: Soft, nontender, nondistended, positive bowel sounds x4 Extremities: +2 pulses bilaterally radialis/ dorsalis pedis, no cyanosis, no edema Neuro: Follows simple commands. Psych: Unable to assess G/U: Positive Young Skin: no rashes, warm and dry Lymphatic: no cervical or axillary lymphadenopathy Results & Data Results & Data ([facility]) Vital Signs (Past 12 Hours) Vital Signs Temp Pulse Resp BP Pulse Ox 01/01/22 06:00 36.4 C L 81 16 154/109 H 96 01/01/22 05:48 36.4 C L 82 17 174/121 H 96 01/01/22 05:26 82 172/113 H 01/01/22 05:25 36.4 C L 82 22 172/113 H 96 01/01/22 05:19 36.4 C L 82 18 177/112 H 96 01/01/22 05:00 36.4 C L 83 14 175/113 H 97 01/01/22 04:50 36.5 C 83 14 153/89 H 96 01/01/22 04:09 36.5 C 82 13 161/120 H 96 01/01/22 04:07 36.5 C 79 12 95 01/01/22 04:00 36.5 C 82 17 181/119 H 96 01/01/22 03:59 36.5 C 83 21 177/114 H 95 01/01/22 03:35 36.4 C L 79 14 182/102 H 97 01/01/22 03:00 36.4 C L 77 17 185/145 H 97 01/01/22 02:01 36.2 C L 79 18 194/104 H 96 01/01/22 02:00 36.2 C L 78 16 95 01/01/22 01:01 36.2 C L 77 17 159/71 H 96 01/01/22 01:00 36.3 C L 77 12 97 01/01/22 00:02 77 165/95 H 01/01/22 00:00 36.4 C L 75 18 165/95 H 97 12/31/21 23:49 36.4 C L 78 13 172/101 H 95 12/31/21 23:11 36.3 C L 74 12 161/106 H 95 12/31/21 23:08 79 12/31/21 23:00 36.3 C L 79 14 159/103 H 92 12/31/21 22:00 36.4 C L 70 12 143/91 H 97 Coding Level of Care Code Critical Care 1st 30-74 mins Diagnoses Hypertensive urgency I16.0 Delirium tremens F10.231 Encephalopathy G93.40 Hypertension I10 Time Spent (min) 31
--- NOTE | 2022-01-01 10:08 | Hospitalist Progress Note ---
Date of Service January 01, 2022 Assessment & Plan (1) Delirium tremens: Plan: Ongoing, severe, remains with significant agitation with attempts to wean Precedex despite being on scheduled ativan It is unknown how much he drank prior to admission as per his sister but she states he would frequently "be wasted" when they would talk on the phone Precedex drip continues today; has been on / off over the last week depending on level of agitation. Does seem slightly improved with mentation and able to interact verbally a bit on 01/01 Ativan dose is being managed (and weaned as tolerated) by ICU attendings. Continue Ativan 2mg IV q4h scheduled and 2mg IV prn AWSS greater than 7 Discussed with Horse Trainer about possibility of starting Phenobarbital rather than scheduled ativan and Precedex gtt-will consider s/p high-dose thiamine x 2 days, now once daily IV at 250mg -continue folic acid IV Cont IV fluids & supportive care. NGT placement failed multiple attempts over the last 2-3 days-->CONSULT GI today for NGT placement under anesthesia - consider PPN in the meantime if cannot get NGT in today -replace K+, Mag IV today, follow daily labs (2) Encephalopathy: Plan: Ongoing. Metabolic 2/2 EtOH withdrawal, Wernicke's as above. And likely some toxic effects from Ativan/precedex/etc. Cannot rule out Wernicke's encephalopathy although this has been adequately treated at this point. Lyme Western Blot IgG positive. Western blot IgM with 1/3 positive. I can't rule out Lyme contributing to clinical picture - could have early disseminated Lyme or later stage Lyme. He did also have positive Lyme in 2017 but unclear if he was treated at that time For Wernicke's -- s/p thiamine 500mg IV TID x 2 days, now 250mg IV daily. Will not check a B1 level as it would likely be inaccurate due to copious supplementation given since admission. TSH, B12 levels both wnl. head CT at admission with atrophy/ventriculomegaly but no ICH, CVA, etc. Over the weekend had low-grade fevers (and now mild hypothermia) - infectious w/u sent - cxr, blood cx's, procal, etc. Labs reassuring. No leukocytosis. Cultures remain negative. Remains on rocephin 2gm IV daily for potential Lyme. RPR is nonreactive. Consider repeat ammonia level. when DTs have resolved will need thorough evaluation of mental status; consider psych eval at that time, too, given the collateral information from his sister (chronic, intermittent hallucinations for many years, etc). She also will be faxing in a previous baseline Neuropsych eval she has of him-he has known learning disabilities. He has been in and out of [facility], abused illicit drugs and EtOH -consider brain MRI also but does not seem to have focal neuro deficits on exam (3) Positive Lyme disease serology: Plan: Western blot - IgM negative; IgG very positive with nearly all bands positive. this would suggest early disseminated Lyme disease or later stage Lyme. since IgM is negative we are not dealing with acute/early stage Lyme. As above, he was also this positive in 2017 but unclear if had treatment at that time day #6 rocephin 2gm IV daily. the patient had been living in a home in the [facility] near [place] for many years and likely had significant tick exposure. would Rx for 4 weeks with rocephin and transtiion to po doxy once taking po if after DTs resolve he remains confused, etc - consider LP to exclude SOLAR PHOTOVOLTAIC DESIGNER Lyme although this should be adequately treated with IV Rocephin (4) Hypertension: Plan: Cont IV beta angelita scheduled until NGT placed or taking po. IV hydralazine prn. Needed nicardipine drip initially dc prn labetalol (5) Alcohol dependence: Plan: See above (6) Hepatitis C: Plan: Chronic, previously seen by ID in 2019 and was offered treatment, however declined at that time. Reportedly has received hep A and B vaccines. Has concurrent alcoholic hepatitis but ast/alt are now close to normal. Ammonia level on 12/23 was wnl. Patient with prior h/o drug abuse and has been incarcerated for illicit drugs in the past. checking HIV with consent given by sister (7) Hypertensive urgency: Plan: Improved with Rx of DTs and receiving sedation along with IV BP meds as above. Labile BPs depending on level of agitation. hydralazine, prn scheduled lopressor IV (8) Hypomagnesemia: Plan: continue daily replacement to keep> 2.0 follow levels on labs Replacing K+ daily as well and following BMP Plan: DVT proph - lovenox FEN - cont maintenance fluids, labs again in am;once NGT placed, start enteral feeds, Nutrition on board Dispo-continued stay in ICU--> once DTs are complete will need intensive social work assistance to determine disposition post-discharge and will need psych eval Sister reports that he has told her recently he no longer can live in his current home (of which she is not sure the location)-so essentially he is currently homeless. He will likely need SNF/acute rehab placement followed by EtOH/Substance abuse rehab, then fdc living situation will need to be worked out after that Discussed all care with sister on phone on 12/31 Discussed care at multidisciplinary rounds in ICU each morning Admission and Anticipated Discharge Date Admission Date: December 23, 2021 Subjective Pt still on Precedex gtt but weaned to 0.4. Is slightly more alert and interactive today but remains agitated at times as per RN. No BM since 12/28 NGT attempts again unsuccessful yesterday and GI consulted today for NGT placement under anesthesia He was able to tell me today he has no pain, denies headache. Told me his name, but speech is slurry, has very dry mouth but did follow some simple commands eg open your mouth and stick out our tongue. NSR on tele Review of Systems Review of Systems: Unobtainable due to cognitive status Physical Exam Constitutional: WD/WN, vitals as above Eyes: PERRL, conjunctivae normal, anicteric sclerae ENMT: Mouth: + oral mucosal abnormality (very dry tongue and mouth) Neck: trachea midline, no thyromegaly Respiratory: normal respiratory effort, lungs clear to auscultation Cardiovascular: RRR, no murmur, no edema Chest (Breasts): Chest: normal inspection of chest Gastrointestinal (Abdomen): normal bowel sounds, soft, nontender, no hepatosplenomegaly Musculoskeletal: Extremities: extremities normal to inspection; no cyanosis and no clubbing Skin: no rashes, warm and dry Neurologic: moves all extremities and awake; no focal motor deficits Psychiatric: Orientation: alert; + not oriented x 3 Eye Contact: + fair eye contact Genitourinary: no penis abnormality (Young cath in place) Lymphatic: no lymphedema Results & Data Results & Data ([facility]) Vital Signs (Past 12 Hours) Vital Signs Temp Pulse Resp BP Pulse Ox 01/01/22 09:01 36.6 C 84 19 185/120 H 96 01/01/22 09:00 36.6 C 83 17 96 01/01/22 08:00 36.5 C 82 14 174/112 H 96 01/01/22 07:00 36.4 C L 84 14 172/122 H 01/01/22 06:45 36.3 C L 78 13 164/108 H 01/01/22 06:24 36.4 C L 83 12 171/119 H 01/01/22 06:21 36.4 C L 83 14 170/118 H 82 L 01/01/22 06:00 36.4 C L 81 16 154/109 H 96 01/01/22 05:48 36.4 C L 82 17 174/121 H 96 01/01/22 05:26 82 172/113 H 01/01/22 05:25 36.4 C L 82 22 172/113 H 96 01/01/22 05:19 36.4 C L 82 18 177/112 H 96 01/01/22 05:00 36.4 C L 83 14 175/113 H 97 01/01/22 04:50 36.5 C 83 14 153/89 H 96 01/01/22 04:09 36.5 C 82 13 161/120 H 96 01/01/22 04:07 36.5 C 79 12 95 01/01/22 04:00 36.5 C 82 17 181/119 H 96 01/01/22 03:59 36.5 C 83 21 177/114 H 95 01/01/22 03:35 36.4 C L 79 14 182/102 H 97 01/01/22 03:00 36.4 C L 77 17 185/145 H 97 01/01/22 02:01 36.2 C L 79 18 194/104 H 96 01/01/22 02:00 36.2 C L 78 16 95 01/01/22 01:01 36.2 C L 77 17 159/71 H 96 01/01/22 01:00 36.3 C L 77 12 97 01/01/22 00:02 77 165/95 H 01/01/22 00:00 36.4 C L 75 18 165/95 H 97 12/31/21 23:49 36.4 C L 78 13 172/101 H 95 12/31/21 23:11 36.3 C L 74 12 161/106 H 95 12/31/21 23:08 79 12/31/21 23:00 36.3 C L 79 14 159/103 H 92 12/31/21 22:00 36.4 C L 70 12 143/91 H 97 Laboratory Results 01/01/22 01/01/22 12/31/21 Range/Units 05:02 00:14 19:02 Sodium 139 (136-145) mmol/L Potassium 3.7 3.4 L (3.5-5.1) mmol/L Chloride 107 (98-107) mmol/L Carbon Dioxide 23 (21-32) mmol/L Anion Gap 9 (3-11) BUN 8 (6-23) mg/dl Creatinine 0.63 (0.6-1.4) mg/dl Est Cr Clr Drug Dosing 123.1 ml/min Est GFR ( Amer) 118.2 ml/min Est GFR (Non-Af Amer) 102.0 ml/min BUN/Creatinine Ratio 12.7 (10-20) Glucose 102 H (70-99(Fasting)) mg/dl POC Glucose 100 H (70-99) mg/dl Calcium 8.9 (8.5-10.1) mg/dl Phosphorus 3.5 (2.5-4.9) mg/dl Magnesium 1.9 2.0 (1.7-2.4) mg/dl PG Care Time/CCT Total # of Minutes Spent Total Time Spent with Patient: Total time spent is greater than 50% in coordination of care (as documented) at patient's floor/unit and/or counseling patient: Coding Level of Care Code 73253 Subseq Hosp Care Lvl 3 Diagnoses Delirium tremens F10.231 Encephalopathy G93.40 Positive Lyme disease serology R76.8 Hypertension I10 Alcohol dependence F10.251 Complication of substance-induced condition: with hallucinations Substance use status: alcohol-induced psychotic disorder Hepatitis C B19.20 Hypertensive urgency I16.0 Hypomagnesemia E83.42 (1) Alcohol dependence Complication of substance-induced condition: with hallucinations Substance use status: alcohol-induced psychotic disorder Qualified Code(s): 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
[2022-01-01 10:51] LABS: Albumin Level 3.7 gm/dl (3.4-5.0); Bilirubin Direct 0.2 mg/dl (0-0.2); Bilirubin,Total 0.6 mg/dl (0.2-1.0); Total Protein 7.9 gm/dl (6.0-8.3)
--- NOTE | 2022-01-01 11:17 | Gastrointestinal Consultation ---
Date of Consultation January 01, 2022 Assessment & Plan (1) Encephalopathy: 66 year old male admitted to the icu with encephalopathy, DT - GI asked to endoscopically place NG given numerous unsuccessful attempts Will discuss with attending and anesthesia. Supervising Physician Co-Signing Physician Notes Will place NGT today if schedule allows. History of Present Illness Reason for Consultation: endoscopically placed NG Requesting Physician: Angelita Attending Physician: Briseyda Goldstein MD History of Present Illness [facility] asked to evaluate as pt had an open access colonoscopy in 2008. 66 year old male with history of HTN, HCV reportedly treated per records admitted to the ICU on 12/23 with hypertensive urgency, ETOH withdrawal DT, encephalopathy, GI was asked to place NG tube endoscopically given numerous failed attempts over the course of his admission. Pt was seen and evaluated, chart reviewed. He was asleep during the entirely of my examination. ABD US 2021: Limited examination as described. 2. Mild hepatomegaly with fatty infiltration. 3. Cholelithiasis. Allergies Allergy/AdvReac Type Severity Reaction Status Date / Time bee venom protein (honey bee) AdvReac Severe Anaphylaxis Unverified 12/23/21 15:51 Home Medications Medication Instructions Recorded Confirmed Type No Known Home Medications 12/23/21 12/23/21 History Patient History Medical History Alcohol dependence (06/08/11) Bee sting allergy Depression (06/08/11) Hepatitis C Hypertension Marijuana use Surgical History Status post hernia repair Status post knee surgery Family History Father Diabetes Hypertension Mother Breast cancer Denies family history of Ovarian cancer Prostate cancer Myocardial infarction Colorectal cancer Social History Smoking Status: Current some day smoker Hx Alcohol Use: Yes Alcohol type: beer and hard liquor Hx Substance Use: Yes Preferred Language: Greek Communication Ability: Unable Visual Impairment: No Limitations Hearing Ability: Normal marital status: Single Current Living Situation: Alone current occupational status: retired Feels Safe at Home: No Childhood Exposure to Second-Hand Smoke: No Dental Care, Regularly: Yes Physical Activity Frequency: Does not Exercise Seatbelt Use: always Assistive Devices: None Review of Systems Review of Systems: Unobtainable due to cognitive status Physical Exam Constitutional: Asleep, chronically ill appearing male in no acute distress, does not wake up to name for examination. Respiratory: normal respiratory effort, lungs clear to auscultation Cardiovascular: Rate/Rhythm: regular rate Gastrointestinal (Abdomen): Inspection/Auscultation: abdomen normal to inspection and normal bowel sounds; abdomen not distended Skin: no rashes, warm and dry Results & Data ([facility]) Vital Signs (Past 12 Hours) Vital Signs Temp Pulse Resp BP Pulse Ox 01/01/22 09:01 36.6 C 84 19 185/120 H 96 01/01/22 09:00 36.6 C 83 17 96 01/01/22 08:00 36.5 C 82 14 174/112 H 96 01/01/22 07:00 36.4 C L 84 14 172/122 H 01/01/22 06:45 36.3 C L 78 13 164/108 H 01/01/22 06:24 36.4 C L 83 12 171/119 H 01/01/22 06:21 36.4 C L 83 14 170/118 H 82 L 01/01/22 06:00 36.4 C L 81 16 154/109 H 96 01/01/22 05:48 36.4 C L 82 17 174/121 H 96 01/01/22 05:26 82 172/113 H 01/01/22 05:25 36.4 C L 82 22 172/113 H 96 01/01/22 05:19 36.4 C L 82 18 177/112 H 96 01/01/22 05:00 36.4 C L 83 14 175/113 H 97 01/01/22 04:50 36.5 C 83 14 153/89 H 96 01/01/22 04:09 36.5 C 82 13 161/120 H 96 01/01/22 04:07 36.5 C 79 12 95 01/01/22 04:00 36.5 C 82 17 181/119 H 96 01/01/22 03:59 36.5 C 83 21 177/114 H 95 01/01/22 03:35 36.4 C L 79 14 182/102 H 97 01/01/22 03:00 36.4 C L 77 17 185/145 H 97 01/01/22 02:01 36.2 C L 79 18 194/104 H 96 01/01/22 02:00 36.2 C L 78 16 95 01/01/22 01:01 36.2 C L 77 17 159/71 H 96 01/01/22 01:00 36.3 C L 77 12 97 01/01/22 00:02 77 165/95 H 01/01/22 00:00 36.4 C L 75 18 165/95 H 97 12/31/21 23:49 36.4 C L 78 13 172/101 H 95 12/31/21 23:11 36.3 C L 74 12 161/106 H 95 Laboratory Results 01/01/22 01/01/22 01/01/22 Range/Units 09:51 05:02 00:14 Sodium 139 (136-145) mmol/L Potassium 3.7 (3.5-5.1) mmol/L Chloride 107 (98-107) mmol/L Carbon Dioxide 23 (21-32) mmol/L Anion Gap 9 (3-11) BUN 8 (6-23) mg/dl Creatinine 0.63 (0.6-1.4) mg/dl Est Cr Clr Drug Dosing 123.1 ml/min Est GFR ( Amer) 118.2 ml/min Est GFR (Non-Af Amer) 102.0 ml/min BUN/Creatinine Ratio 12.7 (10-20) Glucose 102 H (70-99(Fasting)) mg/dl POC Glucose 100 H (70-99) mg/dl Calcium 8.9 (8.5-10.1) mg/dl Phosphorus 3.5 (2.5-4.9) mg/dl Magnesium 1.9 (1.7-2.4) mg/dl Total Bilirubin 0.6 (0.2-1.0) mg/dl Direct Bilirubin 0.2 (0-0.2) mg/dl AST 33 (13-39) U/L ALT 39 (7-52) U/L Alkaline Phosphatase 58 (34-104) U/L Total Protein 7.9 (6.0-8.3) gm/dl Albumin 3.7 (3.4-5.0) gm/dl 12/31/21 Range/Units 19:02 Sodium (136-145) mmol/L Potassium 3.4 L (3.5-5.1) mmol/L Chloride (98-107) mmol/L Carbon Dioxide (21-32) mmol/L Anion Gap (3-11) BUN (6-23) mg/dl Creatinine (0.6-1.4) mg/dl Est Cr Clr Drug Dosing ml/min Est GFR ( Amer) ml/min Est GFR (Non-Af Amer) ml/min BUN/Creatinine Ratio (10-20) Glucose (70-99(Fasting)) mg/dl POC Glucose (70-99) mg/dl Calcium (8.5-10.1) mg/dl Phosphorus (2.5-4.9) mg/dl Magnesium 2.0 (1.7-2.4) mg/dl Total Bilirubin (0.2-1.0) mg/dl Direct Bilirubin (0-0.2) mg/dl AST (13-39) U/L ALT (7-52) U/L Alkaline Phosphatase (34-104) U/L Total Protein (6.0-8.3) gm/dl Albumin (3.4-5.0) gm/dl
--- NOTE | 2022-01-01 12:39 | Anesthesiology Consultation ---
Date of Service January 01, 2022 Assessment & Plan Chart Review Chart Review: Acceptable Risk for Surgery Consults Requested none History Surgery Operation Date: 01/01/22 17:00 Proposed Procedures p Esophagogastroduodenoscopy Dr Atwood - Jim Olivier MD Height/Weight Height: 5 ft 9 in Weight: 85.1 kg Allergies Allergy/AdvReac Type Severity Reaction Status Date / Time bee venom protein (honey bee) AdvReac Severe Anaphylaxis Unverified 12/23/21 15:51 Medications Home Medications Medication Instructions Recorded Confirmed Last Taken No Known Home Medications 12/23/21 12/23/21 Unknown Active Medications Generic Name Dose Route Start Last Admin Trade Name Freq PRN Reason Stop Dose Admin Enoxaparin Sodium 40 mg 12/23/21 21:00 12/31/21 22:19 Enoxaparin Inj 40 Mg/0.4 Ml Syr SQ 01/22/22 20:59 40 mg QPM TYLOR Administration Hydralazine HCl 10 mg 12/25/21 08:36 01/01/22 05:49 Hydralazine Hcl 20 Mg/Ml Vial IV 01/24/22 11:59 10 mg Q6 PRN Administration SBP>160, DBP>100 Folic Acid 1 mg/ Syringe 10 mls @ 5 mls/min 12/23/21 21:00 01/01/22 08:53 IV 01/22/22 20:59 5 mls/min QAM TYLOR Administration Dextrose/Sodium Chloride 1,000 mls @ 70 mls/hr 12/25/21 10:30 01/01/22 05:40 D5w And 1/2nss IV 01/24/22 10:29 Not Given .[id number] TYLOR Ceftriaxone Sodium 2,000 mg/ 70 mls @ 100 mls/hr 12/27/21 13:00 01/01/22 10:09 Dextrose IV 01/06/22 12:59 Infused DAILY TYLOR Infusion Protocol Dexmedetomidine/Sodium Chloride 200 mcg in 50 mls @ 8.81 mls/hr 12/28/21 15:30 01/01/22 09:21 Precedex IV 01/01/22 15:29 0.4 mcg/kg/hr .[id number] TYLOR 8.8 mls/hr Titration Protocol 0.4 MCG/KG/HR Thiamine HCl 250 mg/ Sodium 52.5 mls @ 210 mls/hr 12/31/21 10:15 01/01/22 09:14 Chloride IV 01/30/22 10:14 Infused QAM TYLOR Infusion Lorazepam 2 mg 12/30/21 08:00 01/01/22 11:53 Lorazepam 2 Mg/1 Ml Vial IV 01/29/22 07:59 2 mg Q4H TYLOR Administration Metoprolol Tartrate 5 mg 12/27/21 12:00 01/01/22 11:52 Metoprolol Tartrate 1 Mg/Ml Vial IV 01/26/22 11:59 5 mg Q6 TYLOR Administration Protocol Miscellaneous 1 ea 12/29/21 18:00 01/01/22 06:27 Icu Electrolyte Replacement Protocol N/A 01/05/22 17:59 1 ea BID@,18 TYLOR Administration Protocol Past Medical History Medical History Alcohol dependence (06/08/11) Bee sting allergy Depression (06/08/11) Hepatitis C Hypertension Marijuana use Past Family History Family History Father Diabetes Hypertension Mother Breast cancer Denies family history of Ovarian cancer Prostate cancer Myocardial infarction Colorectal cancer Past Surgical History Surgical History Status post hernia repair Status post knee surgery Social History Smoking Status: Current some day smoker Hx Alcohol Use: Yes Alcohol type: beer and hard liquor Hx Substance Use: Yes Physical Exam Vital Signs Last Vital Signs Temp 36.7 C 01/01/22 11:00 Pulse 88 01/01/22 11:52 Resp 17 01/01/22 11:00 BP 229/157 H 01/01/22 11:52 Pulse Ox 97 01/01/22 11:00 Testing Laboratory Results 12/29/21 04:57 01/01/22 05:02 PT 10.9 Seconds (9.0-12.0) 12/24/21 05:55 INR 1.0 (0.9-1.1) 12/24/21 05:55 Urine Color [place] 12/27/21 20:52 Urine Appearance Clear (Clear) 12/27/21 20:52 Urine pH 5.5 (4.5-7.5) 12/27/21 20:52 Ur Specific [place] 1.020 (1.000-1.030) 12/27/21 20:52 Urine Protein 1+ (Negative) H 12/27/21 20:52 Urine Glucose (UA) Negative (Negative) 12/27/21 20:52 Urine Ketones 1+ (Negative) H 12/27/21 20:52 Urine Nitrite Positive (Negative) A 12/27/21 20:52 Ur Leukocyte Esterase 1+ (Negative) H 12/27/21 20:52 Urine WBC (Auto) 5-10 /hpf (0-5) H 12/27/21 20:52 Urine RBC (Auto) 10-30 /hpf (0-4) H 12/27/21 20:52 U Hyaline Cast (Auto) 5-10 /lpf (0-5) H 12/27/21 20:52 U Epithel Cells (Auto) 20-30 /lpf (0-5) H 12/27/21 20:52 Urine Bacteria (Auto) Negative (Negative) 12/27/21 20:52 12/27/21 20:52 Aerobic Blood Culture - Preliminary Blood No growth in Aerobic bottle after 48 hours. Anaerobic Blood Culture - Preliminary No growth in Anaerobic bottle after 48 hours. 12/27/21 20:59 Aerobic Blood Culture - Preliminary Blood No growth in Aerobic bottle after 48 hours. Anaerobic Blood Culture - Preliminary No growth in Anaerobic bottle after 48 hours.
[2022-01-01] MEDS ORDERED: fentaNYL citrate 100 MCG/2 ML VIAL ONE (12:53)
--- NOTE | 2022-01-01 13:04 | History & Physical Bridge Note ---
Date of Service January 01, 2022 History & Physical Bridge Note I have examined the patient, reviewed the History & Physical and in the interval since the performance of the History & Physical I have noted the following changes of clinical significance: no changes noted
[2022-01-01] MEDS ORDERED: LIDOCAINE 2% 2 ML VIAL/AMP(20MG/ML) INFIL ONE (13:41)
[2022-01-01] MEDS ORDERED: PROPOFOL IV EMULSION 10 MG/ML 20 ML VIAL IV ONE (13:41)
--- NOTE | 2022-01-01 13:49 | Anesthesiology Progress Note ---
Date of Service January 01, 2022 Anesthesia Post Procedure Vital Signs Vital Signs: Temp Pulse Pulse Resp BP BP Pulse Ox 01/01/22 13:40 37.1 C 81 13 132/80 100 01/01/22 13:35 37.2 C 10 L 115/70 99 01/01/22 13:30 37.2 C 80 4 L 108/67 96 01/01/22 13:25 37.2 C 79 15 133/88 98 01/01/22 13:20 37.2 C 77 7 L 103/73 98 01/01/22 13:16 37.2 C 78 4 L 117/75 99 01/01/22 13:15 37.2 C 78 10 L 100 01/01/22 13:10 37.1 C 90 12 100 01/01/22 13:06 37.1 C 88 18 192/120 H 100 01/01/22 13:05 37.1 C 88 16 100 01/01/22 13:00 37.1 C 87 23 195/137 H 98 01/01/22 12:55 37.1 C 86 14 195/116 H 98 01/01/22 12:52 36.5 C 86 18 171/101 H 97 01/01/22 12:50 37.1 C 86 14 171/101 H 97 01/01/22 12:45 37.1 C 88 15 177/121 H 97 01/01/22 12:44 37.1 C 88 19 185/111 H 97 01/01/22 12:23 37.0 C 91 H 14 182/152 H 98 01/01/22 12:01 36.9 C 83 13 201/114 H 95 01/01/22 12:00 36.9 C 86 17 97 01/01/22 11:52 88 229/157 H 01/01/22 11:49 36.9 C 87 18 229/157 H 97 01/01/22 11:00 36.7 C 84 17 97 01/01/22 10:01 36.6 C 84 14 173/127 H 95 01/01/22 10:00 36.6 C 83 15 95 01/01/22 09:26 36.6 C 80 12 176/107 H 96 01/01/22 09:01 36.6 C 84 19 185/120 H 96 01/01/22 09:00 36.6 C 83 17 96 01/01/22 08:00 36.5 C 82 14 174/112 H 96 01/01/22 07:00 36.4 C L 84 14 172/122 H 01/01/22 06:45 36.3 C L 78 13 164/108 H 01/01/22 06:24 36.4 C L 83 12 171/119 H 01/01/22 06:21 36.4 C L 83 14 170/118 H 82 L 01/01/22 06:00 36.4 C L 81 16 154/109 H 96 01/01/22 05:48 36.4 C L 82 17 174/121 H 96 01/01/22 05:26 82 172/113 H 01/01/22 05:25 36.4 C L 82 22 172/113 H 96 01/01/22 05:19 36.4 C L 82 18 177/112 H 96 01/01/22 05:00 36.4 C L 83 14 175/113 H 97 01/01/22 04:50 36.5 C 83 14 153/89 H 96 01/01/22 04:09 36.5 C 82 13 161/120 H 96 01/01/22 04:07 36.5 C 79 12 95 01/01/22 04:00 36.5 C 82 17 181/119 H 96 01/01/22 03:59 36.5 C 83 21 177/114 H 95 01/01/22 03:35 36.4 C L 79 14 182/102 H 97 01/01/22 03:00 36.4 C L 77 17 185/145 H 97 01/01/22 02:01 36.2 C L 79 18 194/104 H 96 01/01/22 02:00 36.2 C L 78 16 95 01/01/22 01:01 36.2 C L 77 17 159/71 H 96 01/01/22 01:00 36.3 C L 77 12 97 01/01/22 00:02 77 165/95 H 01/01/22 00:00 36.4 C L 75 18 165/95 H 97 12/31/21 23:49 36.4 C L 78 13 172/101 H 95 12/31/21 23:11 36.3 C L 74 12 161/106 H 95 12/31/21 23:08 79 12/31/21 23:00 36.3 C L 79 14 159/103 H 92 12/31/21 22:00 36.4 C L 70 12 143/91 H 97 12/31/21 21:02 36.4 C L 78 13 146/101 H 86 L 12/31/21 21:00 36.4 C L 79 13 165/116 H 98 12/31/21 20:23 165/99 H 12/31/21 20:21 36.3 C L 77 15 165/99 H 99 12/31/21 20:05 36.3 C L 80 15 195/122 H 99 12/31/21 20:00 36.3 C L 70 12 187/102 H 97 12/31/21 19:32 36.3 C L 75 18 187/111 H 97 12/31/21 19:30 36.3 C L 74 15 97 12/31/21 19:29 36.2 C L 75 15 170/127 H 98 12/31/21 19:00 36.3 C L 68 12 97 12/31/21 18:15 68 169/101 H 12/31/21 16:00 36.4 C L 78 72 18 123/88 96 12/31/21 14:00 36.4 C L 75 149/92 H 98 Transfer of Care Handoff Completed per policy Notes Mental Status: alert / awake / arousable and participated in evaluation Patient Amnestic to Procedure: Yes Nausea / Vomiting: adequately controlled Pain: adequately controlled Airway Patency, RR, SpO2: stable & adequate BP & HR: stable & adequate Hydration State: stable & adequate Anesthetic Complications: no major complications apparent
--- NOTE | 2022-01-01 14:11 | GI REPORT ---
Patient Name: Arvind Sinclair Procedure Date: 01/01/2022 12:45 PM Date of : 1955 Admit Type: Inpatient Age: 66 Gender: Male Attending MD: Jim Olivier MD Procedure: Upper GI endoscopy Providers: Jim Olivier MD Referring MD: Briseyda Goldstein Md Indications: Dysphagia Medicines: See the Anesthesia note for documentation of the administered medications Complications: No immediate complications. Estimated Blood Loss: Estimated blood loss: none. Procedure: Pre-Anesthesia Assessment: - ASA Grade Assessment: III - A patient with severe systemic disease. After obtaining informed consent, the endoscope was passed under direct vision. Throughout the procedure, the patient's blood pressure, pulse, and oxygen saturations were monitored continuously. The Scope was introduced through the mouth, and advanced to the second part of duodenum. The upper GI endoscopy was accomplished without difficulty. The patient tolerated the procedure well. Findings: There was large amount of inspissated mucus in the hypopharynx. The esophagus was normal. There was patchy snakeskin appearance to the mucosa of the stomach in the body and fundus. The stomach was otherwise normal. There was patchy shallow erythema and ulceration in the duodenal bulb. An NGT tube was placed under endoscopic guidance into the stomach. Recommendation: - Discharge patient to ICU. KUB check placement. Yahir Siu MD 01/01/2022 2:10:41 PM This report has been signed electronically. Note Initiated On: 01/01/2022 12:45 PM Number of Addenda: 0 I attest to the content of the Intraoperative Record and orders documented therein, exceptions below {[id number]}
--- NOTE | 2022-01-01 15:29 | XRay Report ---
KUB HISTORY: Status post placement of a feeding tube Coresafe placement COMPARISON: Chest radiograph 12/28/2021 FINDINGS: Status post placement of a feeding tube with distal tip projected superiorly within the exp ected location of the distal duodenum. Mild gaseous distention of the large bowel. Nonobstructive bow el gas pattern. The heart appears prominent in size. No renal calculi. No ureteral calculi. No pneum operitoneum or pneumatosis. No fracture. IMPRESSION: Status post placement of a feeding tube, distal tip projected superiorly within the expected location of the distal duodenum. ACT 112: Negative or not required by law. The above report was generated using voice recognition software. It may contain grammatical, syntax o r spelling errors. Electronically signed by: Brandt Seo M.D. 01/01/2022 3:27 PM
[2022-01-01] MEDS ORDERED: STAT IV Infusion **Titration per Protocol STA (16:49)
[2022-01-01] MEDS: TUBE FEEDING WATER FLUSH NG SCH ×2 (18:24→20:06)
[2022-01-01] MEDS: ENOXAPARIN INJ 40 MG/0.4 ML SYR SQ SCH (20:06)
[2022-01-01] MEDS: PANTOprazole 40 MG in SYRINGE 0 ML IV SCH (21:16)
[2022-01-01] MEDS: LORazepam 2 MG/1 ML VIAL IV PRN (21:40)
[2022-01-02] MEDS: TUBE FEEDING WATER FLUSH NG SCH ×7 (00:08→23:57)
[2022-01-02] MEDS: METOPROLOL TARTRATE 1 MG/ML VIAL IV SCH ×5 (00:08→23:57)
[2022-01-02] MEDS: LORazepam 2 MG/1 ML VIAL IV SCH ×7 (00:09→23:57)
[2022-01-02] MEDS: dexMEDEtomidine 400 MCG/100 ML BAG IV SCH ×5 (01:04→23:05)
[2022-01-02 05:55] LABS: Basophils # (auto) 0.02 K/uL (0-0.2); Basophils % (auto) 0.4 %; Eosinophils # (auto) 0.21 K/uL (0-0.5); Eosinophils % (auto) 4.2 %; Hemoglobin 13.9 g/dL (14.0-18.0); Immature Granulocytes # (auto) 0.01 K/uL (0.00-0.02); Immature Granulocytes % (auto) 0.2 %; Lymphocytes # (auto) 1.56 K/uL (1.2-3.4); Lymphocytes % (auto) 31.3 %; Mean Corpuscular Hemoglobin 30.8 pg (25-34); Mean Corpuscular Hgb Conc 33.9 g/dL (32-36); Mean Corpuscular Volume 90.9 fL (80-100); Monocytes % (auto) 20.1 %; Neutrophils # (auto) 2.18 K/uL (1.4-6.5); Neutrophils % (auto) 43.8 %; Platelet Count 196 K/uL (130-400); RDW Coefficient of Variation 14.1 % (11.5-14.5); RDW Standard Deviation 47.1 fL (36.4-46.3); Red Blood Count 4.51 M/uL (4.7-6.1); White Blood Count 4.98 K/uL (4.8-10.8)
[2022-01-02 06:20] LABS: BUN Creatinine Ratio 14.9 (10-20); Calcium 9.1 mg/dl (8.5-10.1); Creatinine Clr Calc Pharmacy 116.7 ml/min; Est GFR (African American) 115.2 ml/min; Est GFR (Non-African American) 99.4 ml/min; Magnesium 1.9 mg/dl (1.7-2.4); Phosphorus 3.7 mg/dl (2.5-4.9); Potassium 3.3 mmol/L (3.5-5.1)
[2022-01-02] MEDS: ICU ELECTROLYTE REPLACEMENT PROTOCOL SCH ×2 (06:23→15:56)
[2022-01-02] MEDS: MAGNESIUM OXIDE 400 MG TAB NG SCH ×2 (06:46→10:05)
[2022-01-02] MEDS: POTASSIUM CHLORIDE 20 MEQ/15 ML UDC NG SCH ×2 (06:46→10:05)
[2022-01-02] MEDS: cefTRIAXone SODIUM 2,000 MG in DEXTROSE 5% 50 ML IV SCH (08:06)
[2022-01-02] MEDS: FOLIC ACID 1 MG in SYRINGE 9.8 ML IV SCH (08:06)
[2022-01-02] MEDS: MULTI VIT W/MINERALS LIQUID 15 ML UDP GT SCH (08:06)
[2022-01-02] MEDS: THIAMINE HCL 250 MG in SODIUM CHLORIDE 0.9% 50 ML IV SCH (08:07)
[2022-01-02] MEDS: D5W AND 1/2NSS 1,000 ML IV SCH (09:06)
[2022-01-02] MEDS: cloNIDine HCL 0.1 MG TAB PO SCH ×2 (09:09→21:11)
--- NOTE | 2022-01-02 09:30 | Critical Care Progress Note ---
Date of Service January 02, 2022 Assessment & Plan (1) Hypertensive urgency: (2) Delirium tremens: (3) Encephalopathy: (4) Hypertension: Plan: Impression: 66-year-old male presents to the ICU and what appears to be alcohol withdrawal/delirium tremens requiring IV Ativan and is currently restrained. Neuro - Metabolic encephalopathy - delirium tremens -CT head without acute intracranial process -Ammonia within normal limits. UDS negative. EtOH negative -Continue thiamine, cannot rule out Wernicke's encephalopathy - Continue folate -Seizure precautions protocol -RPR nonreactive -Continue as needed Ativan and Ativan 2 mg every 2 hours scheduled. We will continue to wean Precedex. Clonidine 0.1 mg twice daily added Cardiac - Hypertensive urgency Likely from DTs Continue with as needed hydralazine to keep SBP less than 170 Respiratory - No history of pulmonary disease and currently maintaining oxygen saturations on room air without labored breathing. Monitor on continuous pulse ox GI - Transaminitismild, likely secondary to fatty liver disease versus cirrhosis in the setting of alcohol abuse and hepatitis C. Reportedly declined treatment in 2019 for hep C. -Liver ultrasound unremarkable -Ammonia within normal limits -Discriminant factor negative. No indication for steroids -Nasogastric tube placed by GI 01/01/2022. Continue tube feeds. -Continue pantoprazole RENAL/LYTES - Creatinine within normal limits. ICU electrolyte protocol ordered. - Strict I's and O's ENDO - No history of diabetes or thyroid disease ICU hyperglycemic protocol HEME - H&H stable, monitor routine CBCs ID - No signs of infection. However, Lyme antibody is positive. Patient started on Rocephin per hospitalist team. --Prophylaxis VTE: Lovenox GI: None Lines: Peripheral ultrasound-guided Diet: Continue tube feeds. I have personally spent 38 minutes of critical care time in the direct management of this patient. This is a life/limb threatening event. This includes time spent evaluating patient, direct bedside care, chart review, placing orders, interpretation of diagnostic studies, discussion with consultants, patient, and family members, as well as other required patient management activities. This time is exclusive of all separately billable procedures, and teaching time and separate from and in addition to any other critical care service time. Please note the above document was generated using voice recognition software. It may contain grammatical, syntax or spelling errors. Admission and Anticipated Discharge Date Admission Date: December 23, 2021 Subjective Patient seen and examined. Continues to be delirious and agitated. Remains on a Precedex infusion. NG tube in place. Tube feeds running. Review of Systems Review of Systems: Unobtainable due to cognitive status Physical Exam Physical Exam: Constitutional: No acute distress HEENT: EOMI, PERRLA Respiratory system: Diminished bilaterally. No increased work of breathing. CVS: S1-S2 positive, no murmurs or gallops Abdomen: Soft, nontender, nondistended, positive bowel sounds x4 Extremities: +2 pulses bilaterally radialis/ dorsalis pedis, no cyanosis, no edema Neuro: Follows simple commands. Psych: Unable to assess G/U: Positive Young Skin: no rashes, warm and dry Lymphatic: no cervical or axillary lymphadenopathy Results & Data Results & Data ([facility]) Vital Signs (Past 12 Hours) Vital Signs Temp Pulse Resp BP Pulse Ox 01/02/22 05:04 74 147/84 H 01/02/22 05:00 37.2 C 74 15 147/84 H 95 01/02/22 04:30 36.3 C L 72 16 95 01/02/22 04:00 36.5 C 71 15 128/66 96 01/02/22 03:30 36.1 C L 68 24 96 01/02/22 03:00 35.8 C L 63 13 101/74 96 01/02/22 02:30 35.4 C L 62 12 96 01/02/22 02:00 35.4 C L 63 23 128/86 96 01/02/22 01:30 35.6 C L 65 26 H 96 01/02/22 01:00 35.8 C L 65 24 156/93 H 95 01/02/22 00:30 36.0 C L 67 19 95 01/02/22 00:08 69 153/95 H 01/02/22 00:00 36.2 C L 69 25 H 153/95 H 95 01/01/22 23:30 36.2 C L 70 12 96 01/01/22 23:06 36.3 C L 79 14 179/105 H 98 01/01/22 23:00 36.0 C L 82 15 180/114 H 99 01/01/22 22:31 36.1 C L 82 16 147/99 H 98 01/01/22 22:30 36.1 C L 82 26 H 98 01/01/22 22:13 36.4 C L 90 17 100 01/01/22 22:11 36.4 C L 90 14 100 01/01/22 22:00 87 15 97 01/01/22 21:30 37.0 C 93 H 15 97 Coding Level of Care Code Critical Care 1st 30-74 mins Diagnoses Hypertensive urgency I16.0 Delirium tremens F10.231 Encephalopathy G93.40 Hypertension I10 Time Spent (min) 38
--- NOTE | 2022-01-02 09:43 | Hospitalist Progress Note ---
Date of Service January 02, 2022 Assessment & Plan (1) Delirium tremens: Plan: Ongoing, severe, remains with significant agitation with attempts to wean Precedex despite being on scheduled ativan It is unknown how much he drank prior to admission as per his sister but she states he would frequently "be wasted" when they would talk on the phone Precedex drip continues today; has been on / off over the last week depending on level of agitation. Does seem slightly improved with mentation and able to interact verbally a bit on 01/01, now obtunded again on 01/02 Ativan dose is being managed (and weaned as tolerated) by ICU attendings. Continue Ativan 2mg IV q4h scheduled and 2mg IV prn AWSS greater than 7--> need to wean down on lorazepam Discussed with Fabrication Lead about possibility of starting Phenobarbital rather than scheduled ativan and Precedex gtt-will consider s/p high-dose thiamine x 2 days, now once daily IV at 250mg -continue folic acid IV Cont IV fluids & supportive care. NGT placement failed multiple attempts - finally placed endoscopically by GI on 01/01 and started trickle feeds -replace K+, follow daily labs (2) Encephalopathy: Plan: Ongoing. Metabolic 2/2 EtOH withdrawal, Wernicke's as above. And likely some toxic effects from Ativan/precedex/etc. Cannot rule out Wernicke's encephalopathy although this has been adequately treated at this point. Lyme Western Blot IgG positive. Western blot IgM with 1/3 positive. I can't rule out Lyme contributing to clinical picture - could have early disseminated Lyme or later stage Lyme. He did also have positive Lyme in 2017 but unclear if he was treated at that time For Wernicke's -- s/p thiamine 500mg IV TID x 2 days, now 250mg IV daily. Will not check a B1 level as it would likely be inaccurate due to copious supplementation given since admission. TSH, B12 levels both wnl. head CT at admission with atrophy/ventriculomegaly but no ICH, CVA, etc. Over the weekend had low-grade fevers (and now mild hypothermia) - infectious w/u sent - cxr, blood cx's, procal, etc. Labs reassuring. No leukocytosis. Cultures remain negative. Remains on rocephin 2gm IV daily for potential Lyme. RPR is nonreactive. Consider repeat ammonia level. when DTs have resolved will need thorough evaluation of mental status; consider psych eval at that time, too, given the collateral information from his sister (chronic, intermittent hallucinations for many years, etc). She also will be faxing in a previous baseline Neuropsych eval she has of him-he has known learning disabilities. He has been in and out of longterm, abused illicit drugs and EtOH -consider brain MRI also but does not seem to have focal neuro deficits on exam (3) Positive Lyme disease serology: Plan: Western blot - IgM negative; IgG very positive with nearly all bands positive. this would suggest early disseminated Lyme disease or later stage Lyme. since IgM is negative we are not dealing with acute/early stage Lyme. As above, he was also this positive in 2017 but unclear if had treatment at that time day #7 rocephin 2gm IV daily. the patient had been living in a home in the [facility] near [place] for many years and likely had significant tick exposure. 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 started clonidine 0.1mg per NG bid IV hydralazine prn. Needed nicardipine drip initially (5) Alcohol dependence: Plan: See above (6) Hepatitis C: Plan: Chronic, previously seen by ID in 2019 and was offered treatment, however declined at that time. Reportedly has received hep A and B vaccines. Has concurrent alcoholic hepatitis but ast/alt are now close to normal. Ammonia level on 12/23 was wnl. Patient with prior h/o drug abuse and has been incarcerated for illicit drugs in the past. checking HIV with consent given by sister (7) Hypertensive urgency: Plan: Improved with Rx of DTs and receiving sedation along with IV BP meds as above. Labile BPs depending on level of agitation. hydralazine, prn scheduled lopressor IV (8) Hypomagnesemia: Plan: continue daily replacement to keep> 2.0 follow levels on labs Replacing K+ daily as well and following BMP Plan: DVT proph - lovenox FEN - cont maintenance fluids, labs again in am;once NGT placed, start enteral feeds, Nutrition on board Dispo-continued stay in ICU--> once DTs are complete will need intensive social work assistance to determine disposition post-discharge and will need psych eval Sister reports that he has told her recently he no longer can live in his current home (of which she is not sure the location)-so essentially he is currently homeless. 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 Remains on precedex gtt at 0.7. NGT placed yesterday and started trickle feeds. Review of Systems Review of Systems: All systems reviewed & are unremarkable except as noted in HPI & below Physical Exam Constitutional: WD/WN, vitals as above ENMT: Mouth: + oral mucosal abnormality (very dry tongue and mouth) Neck: trachea midline, no thyromegaly Respiratory: normal respiratory effort, lungs clear to auscultation (except some upper airway coarse BS) Cardiovascular: RRR, no murmur, no edema Chest (Breasts): Chest: normal inspection of chest Gastrointestinal (Abdomen): normal bowel sounds, soft, nontender, no hepatosplenomegaly Musculoskeletal: Extremities: extremities normal to inspection; no cyanosis and no clubbing Skin: no rashes, warm and dry Neurologic: + not awake Genitourinary: no penis abnormality (Young cath in place) Lymphatic: no lymphedema Results & Data Results & Data ([facility]) Vital Signs (Past 12 Hours) Vital Signs Temp Pulse Resp BP Pulse Ox 01/02/22 05:04 74 147/84 H 01/02/22 05:00 37.2 C 74 15 147/84 H 95 01/02/22 04:30 36.3 C L 72 16 95 01/02/22 04:00 36.5 C 71 15 128/66 96 01/02/22 03:30 36.1 C L 68 24 96 01/02/22 03:00 35.8 C L 63 13 101/74 96 01/02/22 02:30 35.4 C L 62 12 96 01/02/22 02:00 35.4 C L 63 23 128/86 96 01/02/22 01:30 35.6 C L 65 26 H 96 01/02/22 01:00 35.8 C L 65 24 156/93 H 95 01/02/22 00:30 36.0 C L 67 19 95 01/02/22 00:08 69 153/95 H 01/02/22 00:00 36.2 C L 69 25 H 153/95 H 95 01/01/22 23:30 36.2 C L 70 12 96 01/01/22 23:06 36.3 C L 79 14 179/105 H 98 01/01/22 23:00 36.0 C L 82 15 180/114 H 99 01/01/22 22:31 36.1 C L 82 16 147/99 H 98 01/01/22 22:30 36.1 C L 82 26 H 98 01/01/22 22:13 36.4 C L 90 17 100 01/01/22 22:11 36.4 C L 90 14 100 01/01/22 22:00 87 15 97 Laboratory Results 01/02/22 01/02/22 01/01/22 Range/Units 05:14 05:14 09:51 WBC 4.98 (4.8-10.8) K/uL RBC 4.51 L (4.7-6.1) M/uL Hgb 13.9 L (14.0-18.0) g/dL Hct 41.0 L (42-52) % MCV 90.9 (80-100) fL MCH 30.8 (25-34) pg MCHC 33.9 (32-36) g/dL RDW Std Deviation 47.1 H (36.4-46.3) fL RDW Coeff of Dutch 14.1 (11.5-14.5) % Plt Count 196 (130-400) K/uL MPV 13.0 H (7.4-10.4) fL Immature Gran % (Auto) 0.2 % Neut % (Auto) 43.8 % Lymph % (Auto) 31.3 % [place] % (Auto) 20.1 % Eos % (Auto) 4.2 % Baso % (Auto) 0.4 % Neut # (Auto) 2.18 (1.4-6.5) K/uL Lymph # (Auto) 1.56 (1.2-3.4) K/uL [place] # (Auto) 1.00 H (0.11-0.59) K/uL Eos # (Auto) 0.21 (0-0.5) K/uL Baso # (Auto) 0.02 (0-0.2) K/uL Immature Gran # (Auto) 0.01 (0.00-0.02) K/uL Sodium 139 (136-145) mmol/L Potassium 3.3 L (3.5-5.1) mmol/L Chloride 107 (98-107) mmol/L Carbon Dioxide 26 (21-32) mmol/L Anion Gap 6 (3-11) BUN 10 (6-23) mg/dl Creatinine 0.67 (0.6-1.4) mg/dl Est Cr Clr Drug Dosing 116.7 ml/min Est GFR ( Amer) 115.2 ml/min Est GFR (Non-Af Amer) 99.4 ml/min BUN/Creatinine Ratio 14.9 (10-20) Glucose 105 H (70-99(Fasting)) mg/dl Calcium 9.1 (8.5-10.1) mg/dl Phosphorus 3.7 (2.5-4.9) mg/dl Magnesium 1.9 (1.7-2.4) mg/dl Total Bilirubin 0.6 (0.2-1.0) mg/dl Direct Bilirubin 0.2 (0-0.2) mg/dl AST 33 (13-39) U/L ALT 39 (7-52) U/L Alkaline Phosphatase 58 (34-104) U/L Total Protein 7.9 (6.0-8.3) gm/dl Albumin 3.7 (3.4-5.0) gm/dl PG Care Time/CCT Total # of Minutes Spent Total Time Spent with Patient: Total time spent is greater than 50% in coordination of care (as documented) at patient's floor/unit and/or counseling patient: Coding Level of Care Code 35079 Subseq Hosp Care Lvl 3 Diagnoses Delirium tremens F10.231 Encephalopathy G93.40 Positive Lyme disease serology R76.8 Hypertension I10 Alcohol dependence F10.251 Complication of substance-induced condition: with hallucinations Substance use status: alcohol-induced psychotic disorder Hepatitis C B19.20 Hypertensive urgency I16.0 Hypomagnesemia E83.42 (1) Alcohol dependence Complication of substance-induced condition: with hallucinations Substance use status: alcohol-induced psychotic disorder Qualified Code(s): 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
[2022-01-02] MEDS: PANTOprazole 40 MG in SYRINGE 0 ML IV SCH (11:39)
[2022-01-02] MEDS: DOCUSATE SODIUM SYRUP 100 MG/10 ML UDC PO SCH ×2 (11:40→21:11)
[2022-01-02] MEDS: SENNOSIDES 8.8 MG/5 ML UDC PO SCH ×2 (11:40→21:11)
[2022-01-02 14:33] LABS: BUN Creatinine Ratio 13.9 (10-20); Calcium 9.2 mg/dl (8.5-10.1); Est GFR (African American) 107.7 ml/min; Est GFR (Non-African American) 92.9 ml/min; Magnesium 1.9 mg/dl (1.7-2.4); Potassium 4.3 mmol/L (3.5-5.1)
[2022-01-02] MEDS: MAGNESIUM SULFATE / D5W 1 GM/100 ML BAG IV SCH ×2 (16:00→18:28)
[2022-01-02] MEDS: ENOXAPARIN INJ 40 MG/0.4 ML SYR SQ SCH (21:11)
[2022-01-03] MEDS ORDERED: LABETALOL HCL IV 5 MG/ML 20ML IV STA (00:39)
[2022-01-03] MEDS: hydrALAZINE HCL 20 MG/ML VIAL IV PRN ×3 (01:32→21:17)
[2022-01-03] MEDS: PEPTAMEN INTENSE VHP 1.0 CAL 1,000 ML BAG GT SCH (01:38)
[2022-01-03] MEDS: dexMEDEtomidine 400 MCG/100 ML BAG IV SCH ×2 (04:03→10:35)
[2022-01-03] MEDS: TUBE FEEDING WATER FLUSH NG SCH ×5 (04:10→20:14)
[2022-01-03] MEDS: LORazepam 2 MG/1 ML VIAL IV SCH ×6 (04:10→23:46)
[2022-01-03 04:36] LABS: Basophils # (auto) 0.03 K/uL (0-0.2); Basophils % (auto) 0.5 %; Eosinophils # (auto) 0.23 K/uL (0-0.5); Eosinophils % (auto) 4.1 %; Hematocrit (blood only) 42.9 % (42-52); Hemoglobin 14.1 g/dL (14.0-18.0); Immature Granulocytes # (auto) 0.01 K/uL (0.00-0.02); Immature Granulocytes % (auto) 0.2 %; Lymphocytes # (auto) 1.43 K/uL (1.2-3.4); Lymphocytes % (auto) 25.4 %; Mean Corpuscular Hemoglobin 30.3 pg (25-34); Mean Corpuscular Hgb Conc 32.9 g/dL (32-36); Mean Corpuscular Volume 92.3 fL (80-100); Mean Platelet Volume 13.1 fL (7.4-10.4); Monocytes # (auto) 0.89 K/uL (0.11-0.59); Monocytes % (auto) 15.8 %; Neutrophils # (auto) 3.04 K/uL (1.4-6.5); Platelet Count 216 K/uL (130-400); RDW Coefficient of Variation 13.9 % (11.5-14.5); RDW Standard Deviation 46.7 fL (36.4-46.3); Red Blood Count 4.65 M/uL (4.7-6.1); White Blood Count 5.63 K/uL (4.8-10.8)
[2022-01-03 04:59] LABS: BUN Creatinine Ratio 22.2 (10-20); Calcium 9.3 mg/dl (8.5-10.1); Creatinine Clr Calc Pharmacy 124.1 ml/min; Est GFR (African American) 118.2 ml/min; Magnesium 1.9 mg/dl (1.7-2.4); Phosphorus 3.6 mg/dl (2.5-4.9); Potassium 3.8 mmol/L (3.5-5.1)
[2022-01-03] MEDS: ICU ELECTROLYTE REPLACEMENT PROTOCOL SCH ×2 (05:03→16:49)
[2022-01-03] MEDS: MAGNESIUM OXIDE 400 MG TAB NG SCH ×2 (05:59→10:01)
[2022-01-03] MEDS: POTASSIUM CHLORIDE 20 MEQ/15 ML UDC NG SCH ×2 (05:59→10:01)
[2022-01-03] MEDS: METOPROLOL TARTRATE 1 MG/ML VIAL IV SCH (06:00)
--- NOTE | 2022-01-03 07:55 | Critical Care Progress Note ---
Date of Service January 03, 2022 Assessment & Plan (1) Hypertensive urgency: (2) Delirium tremens: (3) Encephalopathy: (4) Hypertension: Plan: Impression: 66-year-old male presents to the ICU and what appears to be alcohol withdrawal/delirium tremens requiring IV Ativan and is currently restrained. Neuro - Metabolic encephalopathy - delirium tremens -CT head without acute intracranial process -Ammonia within normal limits. UDS negative. EtOH negative -Continue thiamine, cannot rule out Wernicke's encephalopathy - Continue folate -Seizure precautions protocol -RPR nonreactive -Continue as needed Ativan and Ativan 2 mg every 2 hours scheduled. We will continue to wean Precedex. Clonidine 0.1 mg twice daily added -We will send the patient for an MRI of the brain today. Cardiac - Hypertensive urgency Likely from DTs Continue with as needed hydralazine to keep SBP less than 170 Respiratory - No history of pulmonary disease and currently maintaining oxygen saturations on room air without labored breathing. Monitor on continuous pulse ox. Chest x-r ay 12/28 with pulmonary vascular congestion. GI - Transaminitismild, likely secondary to fatty liver disease versus cirrhosis in the setting of alcohol abuse and hepatitis C. Reportedly declined treatment in 2019 for hep C. -Liver ultrasound unremarkable -Ammonia within normal limits -Discriminant factor negative. No indication for steroids -Nasogastric tube placed by GI 01/01/2022. Continue tube feeds. -Continue pantoprazole RENAL/LYTES - Creatinine within normal limits. ICU electrolyte protocol ordered. - Strict I's and O's ENDO - No history of diabetes or thyroid disease ICU hyperglycemic protocol HEME - H&H stable, monitor routine CBCs ID - No signs of infection. Blood cultures negative from 12/27. However, Lyme antibody is positive. Patient started on Rocephin per hospitalist team. --Prophylaxis VTE: Lovenox GI: None Lines: Peripheral ultrasound-guided Diet: Continue tube feeds. I have personally spent 36 minutes of critical care time in the direct management of this patient. This is a life/limb threatening event. This includes time spent evaluating patient, direct bedside care, chart review, placing orders, interpretation of diagnostic studies, discussion with consultants, patient, and family members, as well as other required patient management activities. This time is exclusive of all separately billable procedures, and teaching time and separate from and in addition to any other critical care service time. Please note the above document was generated using voice recognition software. It may contain grammatical, syntax or spelling errors. Admission and Anticipated Discharge Date Admission Date: December 23, 2021 Subjective Patient seen and examined. Continues to be very delirious and requiring Precedex infusion. No overnight events. Tolerating tube feeds well. Review of Systems Review of Systems: Unobtainable due to cognitive status Physical Exam Physical Exam: Constitutional: No acute distress HEENT: EOMI, PERRLA Respiratory system: Diminished bilaterally. No increased work of breathing. CVS: S1-S2 positive, no murmurs or gallops Abdomen: Soft, nontender, nondistended, positive bowel sounds x4 Extremities: +2 pulses bilaterally radialis/ dorsalis pedis, no cyanosis, no edema Neuro: Follows simple commands. Psych: Unable to assess G/U: Positive Young Skin: no rashes, warm and dry Lymphatic: no cervical or axillary lymphadenopathy Results & Data Results & Data ([facility]) Vital Signs (Past 12 Hours) Vital Signs Temp Pulse Resp BP BP Pulse Ox 01/03/22 06:00 35.5 C L 64 12 129/76 90 01/03/22 05:00 36.4 C L 65 16 93 01/03/22 04:00 36.2 C L 73 16 146/89 H 01/03/22 03:00 36.5 C 80 12 161/90 H 93 01/03/22 02:30 154/89 H 01/03/22 02:29 36.6 C 82 12 154/89 H 92 01/03/22 02:00 36.3 C L 82 13 178/104 H 93 01/03/22 01:55 36.9 C 82 12 169/103 H 95 01/03/22 01:30 36.6 C 80 13 198/115 H 91 01/03/22 01:11 36.5 C 78 16 198/113 H 93 01/03/22 01:01 36.5 C 84 14 219/126 H 95 01/03/22 01:00 36.5 C 84 16 95 01/03/22 00:48 36.5 C 73 12 184/115 H 92 01/03/22 00:35 36.8 C 77 13 95 01/03/22 00:00 36.7 C 77 18 207/123 H 95 01/02/22 23:57 79 198/131 H 01/02/22 23:44 79 01/02/22 23:30 36.5 C 76 12 95 01/02/22 23:00 36.7 C 79 16 198/131 H 97 01/02/22 22:30 36.8 C 77 15 97 01/02/22 22:00 36.4 C L 74 16 194/121 H 95 01/02/22 21:30 36.4 C L 71 11 L 94 01/02/22 21:16 36.3 C L 74 17 197/131 H 96 01/02/22 21:00 36.4 C L 74 13 198/138 H 97 01/02/22 20:30 36.3 C L 71 16 97 01/02/22 20:00 36.4 C L 69 10 L 179/105 H 97 Coding Level of Care Code Critical Care 1st 30-74 mins Diagnoses Hypertensive urgency I16.0 Delirium tremens F10.231 Encephalopathy G93.40 Hypertension I10 Time Spent (min) 36
[2022-01-03] MEDS: cefTRIAXone SODIUM 2,000 MG in DEXTROSE 5% 50 ML IV SCH (07:56)
[2022-01-03] MEDS: THIAMINE HCL 250 MG in SODIUM CHLORIDE 0.9% 50 ML IV SCH (07:56)
[2022-01-03] MEDS: FOLIC ACID 1 MG in SYRINGE 9.8 ML IV SCH (07:58)
[2022-01-03] MEDS: cloNIDine HCL 0.1 MG TAB PO SCH ×2 (07:58→20:14)
[2022-01-03] MEDS: SENNOSIDES 8.8 MG/5 ML UDC PO SCH ×2 (07:59→20:14)
[2022-01-03] MEDS: DOCUSATE SODIUM SYRUP 100 MG/10 ML UDC PO SCH ×2 (07:59→20:14)
[2022-01-03] MEDS: MULTI VIT W/MINERALS LIQUID 15 ML UDP GT SCH (07:59)
--- NOTE | 2022-01-03 08:48 | Hospitalist Progress Note ---
Date of Service January 03, 2022 Assessment & Plan (1) Delirium tremens: Plan: Ongoing, severe, remains with significant agitation with attempts to wean Precedex despite being on scheduled ativan It is unknown how much he drank prior to admission as per his sister but she states he would frequently "be wasted" when they would talk on the phone Precedex drip continues today; has been on / off over the last 1-2 weeks depending on level of agitation. Does seem slightly improved with mentation and able to interact verbally a bit on 01/01, but overall severely lethargic and becomes agitated very easily, remains in restraints to keep from pulling out lines, NGT Ativan dose is being managed (and weaned as tolerated) by ICU attendings. Continue Ativan 2mg IV q4h scheduled and 2mg IV prn AWSS greater than 7--> need to wean down on lorazepam once Prcedex weans Discussed with Rn Progressive Care Unit about possibility of starting Phenobarbital rather than scheduled ativan and Precedex gtt-would strongly consider s/p high-dose thiamine x 2 days, now once daily IV at 250mg -continue folic acid IV NGT placement failed multiple attempts -finally placed endoscopically by GI on 01/01 and started trickle feeds-increase to goal of 65 mL/hr -replace K+, follow daily labs (2) Encephalopathy: Plan: Ongoing. Metabolic 2/2 EtOH withdrawal, Wernicke's as above. And likely some toxic effects from Ativan/precedex/etc. Cannot rule out Wernicke's encephalopathy although this has been adequately treated at this point. Lyme Western Blot IgG positive. Western blot IgM with 1/3 positive. I can't rule out Lyme contributing to clinical picture - could have early disseminated Lyme or later stage Lyme. He did also have positive Lyme in 2017 but unclear if he was treated at that time For Wernicke's -- s/p thiamine 500mg IV TID x 2 days, now 250mg IV daily. Will not check a B1 level as it would likely be inaccurate due to copious supplementation given since admission. TSH, B12 levels both wnl. head CT at admission with atrophy/ventriculomegaly but no ICH, CVA, etc. Over the weekend had low-grade fevers (and now mild hypothermia) - infectious w/u sent - cxr, blood cx's, procal, etc. Labs reassuring. No leukocytosis. Cultures remain negative. Remains on rocephin 2gm IV daily for potential Lyme. RPR is nonreactive. Consider repeat ammonia level. when DTs have resolved will need thorough evaluation of mental status; consider psych eval at that time, too, given the collateral information from his sister (chronic, intermittent hallucinations for many years, etc). She also will be faxing in a previous baseline Neuropsych eval she has of him-he has known learning disabilities. He has been in and out of senior care, abused illicit drugs and EtOH -consider brain MRI also but does not seem to have focal neuro deficits on exam -consider adding on Zyprexa as well-defer to ICU (3) Positive Lyme disease serology: Plan: Western blot - IgM negative; IgG very positive with nearly all bands positive. this would suggest early disseminated Lyme disease or later stage Lyme. since IgM is negative we are not dealing with acute/early stage Lyme. As above, he was also this positive in 2017 but unclear if had treatment at that time day #8 rocephin 2gm IV daily. the patient had been living in a home in the [facility] near [place] for many years and likely had significant tick exposure. would Rx for 4 weeks with rocephin and transition to po doxy once taking po if after DTs resolve he remains confused, etc - consider LP to exclude CRIMP SETTER Lyme although this should be adequately treated with IV Rocephin (4) Hypertension: Plan: Cont IV beta angelita scheduled but could transition to po metoprolol via NG started clonidine 0.1mg per NG bid IV hydralazine prn. Needed nicardipine drip initially (5) Alcohol dependence: Plan: See above (6) Hepatitis C: Plan: Chronic, previously seen by ID in 2019 and was offered treatment, however declined at that time. Reportedly has received hep A and B vaccines. Has concurrent alcoholic hepatitis but ast/alt are now close to normal. Ammonia level on 12/23 was wnl. Patient with prior h/o drug abuse and has been incarcerated for illicit drugs in the past. checking HIV with consent given by sister (7) Hypertensive urgency: Plan: Improved with Rx of DTs and receiving sedation along with IV BP meds as above. Labile BPs depending on level of agitation. hydralazine, prn scheduled lopressor IV (8) Hypomagnesemia: Plan: continue daily replacement to keep> 2.0 follow levels on labs Replacing K+ daily as well and following BMP (9) PUD (peptic ulcer disease): Plan: seen on EGD-duodenal ulceration, no bleeding no melena here, hgb stable continue PPI IV Plan: DVT proph - lovenox FEN - continue enteral feeds, free water flushes, no longer on IVFs, Nutrition on board Dispo-continued stay in ICU--> once DTs are complete will need intensive social work assistance to determine disposition post-discharge and will need psych eval Sister reports that he has told her recently he no longer can live in his current home (of which she is not sure the location)-so essentially he is currently homeless. He will likely need SNF/acute rehab placement followed by EtOH/Substance abuse rehab, then intermediate living situation will need to be worked out after that Discussed all care with sister on phone on 12/31 Discussed care at multidisciplinary rounds in ICU each morning Admission and Anticipated Discharge Date Admission Date: December 23, 2021 Subjective Remains on precedex gtt at 0.6. Moved bowels, no melena as per RN. Pt is able to open eyes briefly and say his first and last name but otherwise can't answer any questions of orientation. Mumbles. Lethargic. NSR and SB on tele Review of Systems Review of Systems: All systems reviewed & are unremarkable except as noted in HPI & below Physical Exam Constitutional: WD/WN, vitals as above ENMT: Nose: + external nose abnormality (NGT in place) Neck: trachea midline, no thyromegaly Respiratory: normal respiratory effort, lungs clear to auscultation Cardiovascular: RRR, no murmur, no edema Chest (Breasts): Chest: normal inspection of chest Gastrointestinal (Abdomen): normal bowel sounds, soft, nontender, no hepatosplenomegaly Musculoskeletal: Extremities: extremities normal to inspection; no cyanosis and no clubbing Skin: no rashes, warm and dry Psychiatric: Orientation: alert and oriented to person; + not oriented to place, + not oriented to time and + uncooperative Eye Contact: + fair eye contact Genitourinary: no penis abnormality (Young cath in place) Lymphatic: no lymphedema Results & Data Results & [facility] ([facility]) Vital Signs (Past 12 Hours) Vital Signs Temp Pulse Resp BP BP Pulse Ox 01/03/22 06:00 35.5 C L 64 12 129/76 90 01/03/22 05:00 36.4 C L 65 16 93 01/03/22 04:00 36.2 C L 73 16 146/89 H 01/03/22 03:00 36.5 C 80 12 161/90 H 93 01/03/22 02:30 154/89 H 01/03/22 02:29 36.6 C 82 12 154/89 H 92 01/03/22 02:00 36.3 C L 82 13 178/104 H 93 01/03/22 01:55 36.9 C 82 12 169/103 H 95 01/03/22 01:30 36.6 C 80 13 198/115 H 91 01/03/22 01:11 36.5 C 78 16 198/113 H 93 01/03/22 01:01 36.5 C 84 14 219/126 H 95 01/03/22 01:00 36.5 C 84 16 95 01/03/22 00:48 36.5 C 73 12 184/115 H 92 01/03/22 00:35 36.8 C 77 13 95 01/03/22 00:00 36.7 C 77 18 207/123 H 95 01/02/22 23:57 79 198/131 H 01/02/22 23:44 79 01/02/22 23:30 36.5 C 76 12 95 01/02/22 23:00 36.7 C 79 16 198/131 H 97 01/02/22 22:30 36.8 C 77 15 97 01/02/22 22:00 36.4 C L 74 16 194/121 H 95 01/02/22 21:30 36.4 C L 71 11 L 94 01/02/22 21:16 36.3 C L 74 17 197/131 H 96 01/02/22 21:00 36.4 C L 74 13 198/138 H 97 Laboratory Results 01/03/22 01/03/22 01/03/22 Range/Units 04:02 04:02 00:26 WBC 5.63 (4.8-10.8) K/uL RBC 4.65 L (4.7-6.1) M/uL Hgb 14.1 (14.0-18.0) g/dL Hct 42.9 (42-52) % MCV 92.3 (80-100) fL MCH 30.3 (25-34) pg MCHC 32.9 (32-36) g/dL RDW Std Deviation 46.7 H (36.4-46.3) fL RDW Coeff of Dutch 13.9 (11.5-14.5) % Plt Count 216 (130-400) K/uL MPV 13.1 H (7.4-10.4) fL Immature Gran % (Auto) 0.2 % Neut % (Auto) 54.0 % Lymph % (Auto) 25.4 % [place] % (Auto) 15.8 % Eos % (Auto) 4.1 % Baso % (Auto) 0.5 % Neut # (Auto) 3.04 (1.4-6.5) K/uL Lymph # (Auto) 1.43 (1.2-3.4) K/uL [place] # (Auto) 0.89 H (0.11-0.59) K/uL Eos # (Auto) 0.23 (0-0.5) K/uL Baso # (Auto) 0.03 (0-0.2) K/uL Immature Gran # (Auto) 0.01 (0.00-0.02) K/uL Sodium 137 (136-145) mmol/L Potassium 3.8 (3.5-5.1) mmol/L Chloride 103 (98-107) mmol/L Carbon Dioxide 27 (21-32) mmol/L Anion Gap 7 (3-11) BUN 14 (6-23) mg/dl Creatinine 0.63 (0.6-1.4) mg/dl Est Cr Clr Drug Dosing 124.1 ml/min Est GFR ( Amer) 118.2 ml/min Est GFR (Non-Af Amer) 102.0 ml/min BUN/Creatinine Ratio 22.2 H (10-20) Glucose 106 H (70-99(Fasting)) mg/dl POC Glucose 90 (70-99) mg/dl Calcium 9.3 (8.5-10.1) mg/dl Phosphorus 3.6 (2.5-4.9) mg/dl Magnesium 1.9 (1.7-2.4) mg/dl 01/02/22 Range/Units 13:52 WBC (4.8-10.8) K/uL RBC (4.7-6.1) M/uL Hgb (14.0-18.0) g/dL Hct (42-52) % MCV (80-100) fL MCH (25-34) pg MCHC (32-36) g/dL RDW Std Deviation (36.4-46.3) fL RDW Coeff of Dutch (11.5-14.5) % Plt Count (130-400) K/uL MPV (7.4-10.4) fL Immature Gran % (Auto) % Neut % (Auto) % Lymph % (Auto) % [place] % (Auto) % Eos % (Auto) % Baso % (Auto) % Neut # (Auto) (1.4-6.5) K/uL Lymph # (Auto) (1.2-3.4) K/uL [place] # (Auto) (0.11-0.59) K/uL Eos # (Auto) (0-0.5) K/uL Baso # (Auto) (0-0.2) K/uL Immature Gran # (Auto) (0.00-0.02) K/uL Sodium 138 (136-145) mmol/L Potassium 4.3 D (3.5-5.1) mmol/L Chloride 108 H (98-107) mmol/L Carbon Dioxide 26 (21-32) mmol/L Anion Gap 4 (3-11) BUN 11 (6-23) mg/dl Creatinine 0.79 (0.6-1.4) mg/dl Est Cr Clr Drug Dosing 99.0 ml/min Est GFR ( Amer) 107.7 ml/min Est GFR (Non-Af Amer) 92.9 ml/min BUN/Creatinine Ratio 13.9 (10-20) Glucose 111 H (70-99(Fasting)) mg/dl POC Glucose (70-99) mg/dl Calcium 9.2 (8.5-10.1) mg/dl Phosphorus (2.5-4.9) mg/dl Magnesium 1.9 (1.7-2.4) mg/dl PG Care Time/CCT Total # of Minutes Spent Total Time Spent with Patient: Total time spent is greater than 50% in coordination of care (as documented) at patient's floor/unit and/or counseling patient: Coding Level of Care Code 02740 Subseq Hosp Care Lvl 2 Diagnoses Delirium tremens F10.231 Encephalopathy G93.40 Positive Lyme disease serology R76.8 Hypertension I10 Alcohol dependence F10.251 Complication of substance-induced condition: with hallucinations Substance use status: alcohol-induced psychotic disorder Hepatitis C B19.20 Hypertensive urgency I16.0 Hypomagnesemia E83.42 PUD (peptic ulcer disease) K27.9 (1) Alcohol dependence Complication of substance-induced condition: with hallucinations Substance use status: alcohol-induced psychotic disorder Qualified Code(s): 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
[2022-01-03] MEDS: METOPROLOL TARTRATE 25 MG TAB PO SCH ×2 (09:57→20:14)
[2022-01-03] MEDS: LANSOPRAZOLE 30 MG SOLTAB PO SCH (10:43)
[2022-01-03] MEDS: LORazepam 2 MG/1 ML VIAL IV PRN (13:47)
[2022-01-03] MEDS ORDERED: GADOBUTROL 65ML VIAL IV ONE (14:55)
[2022-01-03] MEDS ORDERED: GADOBUTROL 30ML VIAL IV ONE (14:56)
--- NOTE | 2022-01-03 15:17 | Magnetic Resonance Report ---
Brain MRI WITH AND WITHOUT CONTRAST HISTORY: Altered mental status. TECHNIQUE: Multiplanar multisequence MRI of the brain was performed both before and after the intrave nous administration of contrast. COMPARISON STUDY: Head CT 12/23/2021. FINDINGS: Suboptimal evaluation the brain due to the significant motion artifact. There is mild mucos al thickening within the ethmoid air cells and a small fluid level within the left sphenoid sinus. Th ere is a small retention cyst within the right maxillary sinus. There is no no definite mass, hematom a, midline shift, or acute infarct. The mastoid air cells are clear. The ventricles and sulci demonst rate mild age-related involutional changes. Scattered foci of T2 hyperintensity seen within the periv entricular and subcortical white matter are nonspecific but suggestive of mild microvascular ischemic changes. The major vascular flow voids at the skull base are well-maintained. IMPRESSION: 1. Suboptimal evaluation of the brain due to the motion artifact. However, no definite acute intracra nial abnormality. 2. Scattered foci of T2 hyperintensity seen within the periventricular and subcortical white matter a re nonspecific but favor microvascular ischemic change. ACT 112: Negative or not required by law. Electronically signed by: Jamie Montez M.D. 01/03/2022 3:15 PM
[2022-01-03] MEDS ORDERED: LORazepam 2 MG/1 ML VIAL IV STA (15:28)
[2022-01-03] MEDS ORDERED: cloNIDine HCL 0.1 MG TAB NG ONE (15:29)
[2022-01-03] MEDS: ENOXAPARIN INJ 40 MG/0.4 ML SYR SQ SCH (20:14)
[2022-01-04] MEDS: TUBE FEEDING WATER FLUSH NG SCH ×6 (00:53→20:00)
[2022-01-04] MEDS ORDERED: LORazepam 2 MG/1 ML VIAL IV STA (01:03)
[2022-01-04] MEDS: hydrALAZINE HCL 20 MG/ML VIAL IV PRN ×2 (01:18→08:22)
[2022-01-04] MEDS: LORazepam 2 MG/1 ML VIAL IV SCH ×5 (04:12→20:12)
[2022-01-04] MEDS: PEPTAMEN INTENSE VHP 1.0 CAL 1,000 ML BAG GT SCH ×2 (04:13→17:49)
[2022-01-04] MEDS ORDERED: LABETALOL HCL IV 5 MG/ML 20ML IV STA (05:08)
[2022-01-04 06:21] LABS: Basophils # (auto) 0.04 K/uL (0-0.2); Basophils % (auto) 0.6 %; Eosinophils # (auto) 0.11 K/uL (0-0.5); Eosinophils % (auto) 1.6 %; Hematocrit (blood only) 43.7 % (42-52); Hemoglobin 14.6 g/dL (14.0-18.0); Immature Granulocytes # (auto) 0.03 K/uL (0.00-0.02); Immature Granulocytes % (auto) 0.4 %; Lymphocytes # (auto) 1.42 K/uL (1.2-3.4); Lymphocytes % (auto) 20.2 %; Mean Corpuscular Hemoglobin 30.4 pg (25-34); Mean Corpuscular Hgb Conc 33.4 g/dL (32-36); Mean Corpuscular Volume 90.9 fL (80-100); Mean Platelet Volume 12.9 fL (7.4-10.4); Monocytes # (auto) 1.08 K/uL (0.11-0.59); Monocytes % (auto) 15.3 %; Neutrophils # (auto) 4.36 K/uL (1.4-6.5); Neutrophils % (auto) 61.9 %; Platelet Count 258 K/uL (130-400); RDW Coefficient of Variation 14.2 % (11.5-14.5); RDW Standard Deviation 47.7 fL (36.4-46.3); Red Blood Count 4.81 M/uL (4.7-6.1); White Blood Count 7.04 K/uL (4.8-10.8)
[2022-01-04 06:34] LABS: Anion Gap 8 (3-11); BUN Creatinine Ratio 27.3 (10-20); Blood Urea Nitrogen 18 mg/dl (6-23); Calcium 9.3 mg/dl (8.5-10.1); Carbon Dioxide 26 mmol/L (21-32); Chloride 105 mmol/L (98-107); Creatinine Clr Calc Pharmacy 117.3 ml/min; Glucose 110 mg/dl (70-99(Fasting)); Magnesium 1.9 mg/dl (1.7-2.4); Phosphorus 3.3 mg/dl (2.5-4.9); Sodium 139 mmol/L (136-145)
[2022-01-04] MEDS: ICU ELECTROLYTE REPLACEMENT PROTOCOL SCH ×2 (07:55→17:08)
[2022-01-04] MEDS: cefTRIAXone SODIUM 2,000 MG in DEXTROSE 5% 50 ML IV SCH (08:20)
[2022-01-04] MEDS: MAGNESIUM SULFATE / D5W 1 GM/100 ML BAG IV SCH ×2 (08:20→10:24)
[2022-01-04] MEDS: POTASSIUM CHLORIDE 20 MEQ/15 ML UDC NG SCH ×2 (08:20→12:27)
[2022-01-04] MEDS: FOLIC ACID 1 MG in SYRINGE 9.8 ML IV SCH (08:21)
[2022-01-04] MEDS: cloNIDine HCL 0.1 MG TAB PO SCH ×3 (08:21→20:13)
[2022-01-04] MEDS: METOPROLOL TARTRATE 25 MG TAB PO SCH ×2 (08:21→20:14)
[2022-01-04] MEDS: DOCUSATE SODIUM SYRUP 100 MG/10 ML UDC PO SCH ×2 (08:21→20:13)
[2022-01-04] MEDS: LANSOPRAZOLE 30 MG SOLTAB PO SCH (08:21)
[2022-01-04] MEDS: THIAMINE HCL 250 MG in SODIUM CHLORIDE 0.9% 50 ML IV SCH (08:22)
[2022-01-04] MEDS: SENNOSIDES 8.8 MG/5 ML UDC PO SCH ×2 (08:22→20:14)
[2022-01-04] MEDS: MULTI VIT W/MINERALS LIQUID 15 ML UDP GT SCH (08:22)
[2022-01-04] MEDS: LORazepam 2 MG/1 ML VIAL IV PRN (10:23)
--- NOTE | 2022-01-04 11:23 | Critical Care Progress Note ---
Date of Service January 04, 2022 Assessment & Plan (1) Hypertensive urgency: (2) Delirium tremens: (3) Encephalopathy: (4) Hypertension: Plan: Impression: 66-year-old male presents to the ICU and what appears to be alcohol withdrawal/delirium tremens requiring IV Ativan and is currently restrained. Neuro - Metabolic encephalopathy - delirium tremens -CT head without acute intracranial process -Ammonia within normal limits. UDS negative. EtOH negative -Continue thiamine, cannot rule out Wernicke's encephalopathy - Continue folate -Seizure precautions protocol -RPR nonreactive -Continue as needed Ativan and Ativan 2 mg every 2 hours scheduled. Precedex weaned off. Continue clonidine 3 times a day. -MRI brain 01/03/2022 suboptimal, but without acute findings. Cardiac - Hypertensive urgency Likely from DTs Continue with as needed hydralazine to keep SBP less than 170 Respiratory - No history of pulmonary disease and currently maintaining oxygen saturations on room air without labored breathing. Monitor on continuous pulse ox. Chest x- ray 12/28 with pulmonary vascular congestion. GI - Transaminitismild, likely secondary to fatty liver disease versus cirrhosis in the setting of alcohol abuse and hepatitis C. Reportedly declined treatment in 2018 for hep C. -Liver ultrasound unremarkable -Ammonia within normal limits -Discriminant factor negative. No indication for steroids -Nasogastric tube placed by GI 01/01/2022. Continue tube feeds. -Continue pantoprazole RENAL/LYTES - Creatinine within normal limits. ICU electrolyte protocol ordered. - Strict I's and O's ENDO - No history of diabetes or thyroid disease ICU hyperglycemic protocol HEME - H&H stable, monitor routine CBCs ID - No signs of infection. Blood cultures negative from 12/27. However, Lyme antibody is positive. Patient started on Rocephin per hospitalist team. --Prophylaxis VTE: Lovenox GI: None Lines: Peripheral ultrasound-guided Diet: Continue tube feeds. I have personally spent 32 minutes of critical care time in the direct management of this patient. This is a life/limb threatening event. This includes time spent evaluating patient, direct bedside care, chart review, placing orders, interpretation of diagnostic studies, discussion with consultants, patient, and family members, as well as other required patient management activities. This time is exclusive of all separately billable procedures, and teaching time and separate from and in addition to any other critical care service time. Please note the above document was generated using voice recognition software. It may contain grammatical, syntax or spelling errors. Admission and Anticipated Discharge Date Admission Date: December 23, 2021 Subjective Patient remains agitated. Off Precedex infusion at this time. Had a large bowel movement this morning. No significant hemodynamic issues. Review of Systems Review of Systems: All systems reviewed & are unremarkable except as noted in HPI & below Physical Exam Physical Exam: Constitutional: No acute distress HEENT: EOMI, PERRLA Respiratory system: Diminished bilaterally. No increased work of breathing. CVS: S1-S2 positive, no murmurs or gallops Abdomen: Soft, nontender, nondistended, positive bowel sounds x4 Extremities: +2 pulses bilaterally radialis/ dorsalis pedis, no cyanosis, no edema Neuro: Follows simple commands. Psych: Unable to assess G/U: Positive Young Skin: no rashes, warm and dry Lymphatic: no cervical or axillary lymphadenopathy Results & Data Results & Data ([facility]) Vital Signs (Past 12 Hours) Vital Signs Temp Pulse Resp BP Pulse Ox 01/04/22 09:00 37.3 C 102 H 22 157/119 H 85 L 01/04/22 08:00 37.5 C 102 H 17 183/115 H 91 01/04/22 07:00 37.4 C 101 H 15 195/112 H 94 01/04/22 06:00 37.3 C 100 H 16 167/107 H 92 01/04/22 05:35 37.4 C 100 H 15 181/92 H 95 01/04/22 05:30 37.5 C 101 H 15 94 01/04/22 05:00 37.4 C 105 H 16 180/118 H 90 01/04/22 04:30 37.2 C 105 H 15 92 01/04/22 04:00 37.4 C 106 H 15 185/104 H 90 01/04/22 03:30 37.1 C 107 H 15 94 01/04/22 03:00 37.3 C 107 H 15 174/109 H 91 01/04/22 02:30 37.2 C 105 H 13 94 01/04/22 02:00 37.3 C 103 H 13 158/118 H 93 01/04/22 01:30 37.5 C 105 H 19 94 01/04/22 01:00 37.4 C 101 H 17 193/119 H 93 01/04/22 00:30 37.3 C 94 H 15 95 01/04/22 00:00 37.3 C 100 H 13 179/118 H 93 01/03/22 23:30 37.6 C H 99 H 16 94 Coding Level of Care Code Critical Care 1st 30-74 mins Diagnoses Hypertensive urgency I16.0 Delirium tremens F10.231 Encephalopathy G93.40 Hypertension I10 Time Spent (min) 32
--- NOTE | 2022-01-04 14:40 | Hospitalist Progress Note ---
Date of Service January 04, 2022 Assessment & Plan (1) Delirium tremens: Plan: Ongoing, severe, remains with significant agitation with attempts to wean Precedex despite being on scheduled ativan It is unknown how much he drank prior to admission as per his sister but she states he would frequently "be wasted" when they would talk on the phone Precedex drip finally weaned off after 11 days but now requiring more prn IV ativan on top of scheduled ativan Does seem slightly improved with mentation and able to interact verbally a bit on 01/01, but overall severely lethargic and becomes agitated very easily, remains in restraints to keep from pulling out lines, NGT Ativan dose is being managed (and weaned as tolerated) by ICU attendings. Continue Ativan 2mg IV q4h scheduled and 2mg IV prn AWSS greater than 7--> need to wean down on lorazepam Discussed with [employer] about possibility of starting Phenobarbital rather than scheduled ativan and Precedex gtt-[employer] declines -s/p high-dose thiamine x 2 days, now once daily IV at 250mg -continue folic acid IV -NGT placement placed endoscopically by GI on 01/01 after multiple failed attempts--> now at goal on tube feeds -replace lytes as per ICU protocol, follow daily labs (2) Encephalopathy: Plan: Ongoing, severe Metabolic 2/2 EtOH withdrawal, Wernicke's as above. And likely some toxic effects from Ativan/precedex/etc. Cannot rule out Wernicke's encephalopathy although this has been adequately treated at this point. Lyme Western Blot IgG positive. Western blot IgM with 1/3 positive. I can't rule out Lyme contributing to clinical picture - could have early disseminated Lyme or later stage Lyme. He did also have positive Lyme in 2017 but unclear if he was treated at that time head CT at admission with atrophy/ventriculomegaly but no ICH, CVA, etc. MRI brain on 01/03 not optimal study but negative For Wernicke's -- s/p thiamine 500mg IV TID x 2 days, now 250mg IV daily. Did not check a B1 level as it would likely be inaccurate due to copious supplementation given since admission. TSH, B12 levels both wnl. Over the weekend had low-grade fevers (and now mild hypothermia) - infectious w/u sent - cxr, blood cx's, procal, etc. Labs reassuring. No leukocytosis. Cultures remain negative. Remains on rocephin 2gm IV daily for potential Lyme. RPR is nonreactive. when DTs have resolved will need thorough evaluation of mental status; consider psych eval at that time, too, given the collateral information from his sister (chronic, intermittent hallucinations for many years, etc). She also will be faxing in a previous baseline Neuropsych eval she has of him-he has known learning disabilities. He has been in and out of long-term, abused illicit drugs and EtOH -consider adding on Zyprexa as well-defer to ICU (3) Positive Lyme disease serology: Plan: Western blot - IgM negative; IgG very positive with nearly all bands positive. this would suggest early disseminated Lyme disease or later stage Lyme. since IgM is negative we are not dealing with acute/early stage Lyme. As above, he was also this positive in 2017 but unclear if had treatment at that time day #9 rocephin 2gm IV daily. the patient had been living in a home in the [facility] near [place] for many years and likely had significant tick exposure. 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 Needed nicardipine drip initially (5) Alcohol dependence: Plan: See above (6) Hepatitis C: Plan: Chronic, previously seen by ID in 2019 and was offered treatment, however declined at that time. Reportedly has received hep A and B vaccines. Has concurrent alcoholic hepatitis but ast/alt are now close to normal. Ammonia level on 12/23 was wnl. Patient with prior h/o drug abuse and has been incarcerated for illicit drugs in the past. checking HIV with consent given by sister -not drawn yet? (7) Hypertensive urgency: Plan: Improved with Rx of DTs and receiving sedation along with IV BP meds as above. Labile BPs depending on level of agitation. hydralazine, prn continue metoprolol, clonidine (8) Hypomagnesemia: Plan: continue daily replacement to keep> 2.0 follow levels on labs Replacing K+ daily as well and following BMP (9) PUD (peptic ulcer disease): Plan: seen on EGD-duodenal ulceration, no bleeding no melena here, hgb stable continue PPI IV Plan: DVT proph - lovenox FEN - continue enteral feeds, free water flushes, no longer on IVFs, Nutrition on board Dispo-continued stay in ICU--> once DTs are complete will need intensive social work assistance to determine disposition post-discharge and will need psych eval Sister reports that he has told her recently he no longer can live in his current home (of which she is not sure the location)-so essentially he is currently homeless. He will likely need SNF/acute rehab placement followed by EtOH/Substance abuse rehab, then [employer] [employer] living situation will need to be worked out after that Discussed all care with sister on phone on 12/31 Discussed care at multidisciplinary rounds in ICU each morning Admission and Anticipated Discharge Date Admission Date: December 23, 2021 Subjective Off Precedex but requiring large amounts of prn Ativan now for significant agitation and elevated BPs. Had a large BM today. At goal on tube feeds. He has his eyes open when I saw him and tries to follow some simple commands but is very lethargic. Does mumble the word "hospital" when I asked him where he was. Discussed his care with [employer] [facility] Review of Systems Review of Systems: All systems reviewed & are unremarkable except as noted in HPI & below Physical Exam Constitutional: WD/WN, vitals as above Eyes: PERRL, conjunctivae normal, anicteric sclerae ENMT: Nose: + external nose abnormality (NGT in place) Neck: trachea midline, no thyromegaly Respiratory: normal respiratory effort, lungs clear to auscultation Cardiovascular: RRR, no murmur, no edema Chest (Breasts): Chest: normal inspection of chest Gastrointestinal (Abdomen): normal bowel sounds, soft, nontender, no hepatosplenomegaly Musculoskeletal: Extremities: extremities normal to inspection; no cyanosis and no clubbing Skin: no rashes, warm and dry Neurologic: moves all extremities, awake and + confused Psychiatric: Orientation: alert, oriented to person and oriented to place ("hospital"); + not oriented to time Eye Contact: + fair eye contact Genitourinary: no penis abnormality (Young cath in place) Lymphatic: no lymphedema Results & Data Results & Data ([facility]) Vital Signs (Past 12 Hours) Vital Signs Temp Pulse Resp BP Pulse Ox 01/04/22 11:19 37.2 C 86 13 159/91 H 96 01/04/22 11:00 37.3 C 85 17 96 01/04/22 10:20 37.1 C 89 15 169/91 H 01/04/22 10:00 37.2 C 86 14 01/04/22 09:00 37.3 C 102 H 22 157/119 H 85 L 01/04/22 08:00 37.5 C 102 H 17 183/115 H 91 01/04/22 07:00 37.4 C 101 H 15 195/112 H 94 01/04/22 06:00 37.3 C 100 H 16 167/107 H 92 01/04/22 05:35 37.4 C 100 H 15 181/92 H 95 01/04/22 05:30 37.5 C 101 H 15 94 01/04/22 05:00 37.4 C 105 H 16 180/118 H 90 01/04/22 04:30 37.2 C 105 H 15 92 01/04/22 04:00 37.4 C 106 H 15 185/104 H 90 01/04/22 03:30 37.1 C 107 H 15 94 01/04/22 03:00 37.3 C 107 H 15 174/109 H 91 Laboratory Results 01/04/22 01/04/22 01/04/22 Range/Units 06:45 05:44 05:44 WBC 7.04 (4.8-10.8) K/uL RBC 4.81 (4.7-6.1) M/uL Hgb 14.6 (14.0-18.0) g/dL Hct 43.7 (42-52) % MCV 90.9 (80-100) fL MCH 30.4 (25-34) pg MCHC 33.4 (32-36) g/dL RDW Std Deviation 47.7 H (36.4-46.3) fL RDW Coeff of Dutch 14.2 (11.5-14.5) % Plt Count 258 (130-400) K/uL MPV 12.9 H (7.4-10.4) fL Immature Gran % (Auto) 0.4 % Neut % (Auto) 61.9 % Lymph % (Auto) 20.2 % Vermilion % (Auto) 15.3 % Eos % (Auto) 1.6 % Baso % (Auto) 0.6 % Neut # (Auto) 4.36 (1.4-6.5) K/uL Lymph # (Auto) 1.42 (1.2-3.4) K/uL [place] # (Auto) 1.08 H (0.11-0.59) K/uL Eos # (Auto) 0.11 (0-0.5) K/uL Baso # (Auto) 0.04 (0-0.2) K/uL Immature Gran # (Auto) 0.03 H (0.00-0.02) K/uL Sodium 139 (136-145) mmol/L Potassium 3.6 TNP Chloride 105 (98-107) mmol/L Carbon Dioxide 26 (21-32) mmol/L Anion Gap 8 (3-11) BUN 18 (6-23) mg/dl Creatinine 0.66 (0.6-1.4) mg/dl Est Cr Clr Drug Dosing 117.3 ml/min Est GFR ( Amer) 116.0 ml/min Est GFR (Non-Af Amer) 100.0 ml/min BUN/Creatinine Ratio 27.3 H (10-20) Glucose 110 H (70-99(Fasting)) mg/dl Calcium 9.3 (8.5-10.1) mg/dl Phosphorus 3.3 (2.5-4.9) mg/dl Magnesium 1.9 (1.7-2.4) mg/dl PG Care Time/CCT Total # of Minutes Spent Total Time Spent with Patient: Total time spent is greater than 50% in coordination of care (as documented) at patient's floor/unit and/or counseling patient: Coding Level of Care Code 45205 Subseq Hosp Care Lvl 3 Diagnoses Delirium tremens F10.231 Encephalopathy G93.40 Positive Lyme disease serology R76.8 Hypertension I10 Alcohol dependence F10.251 Complication of substance-induced condition: with hallucinations Substance use status: alcohol-induced psychotic disorder Hepatitis C B19.20 Hypertensive urgency I16.0 Hypomagnesemia E83.42 PUD (peptic ulcer disease) K27.9 (1) Alcohol dependence Complication of substance-induced condition: with hallucinations Substance use status: alcohol-induced psychotic disorder Qualified Code(s): 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
[2022-01-04] MEDS: ENOXAPARIN INJ 40 MG/0.4 ML SYR SQ SCH (20:13)
[2022-01-05] MEDS: TUBE FEEDING WATER FLUSH NG SCH ×7 (00:35→23:49)
[2022-01-05] MEDS: LORazepam 2 MG/1 ML VIAL IV SCH ×5 (00:35→16:09)
[2022-01-05 06:06] LABS: BUN Creatinine Ratio 34.8 (10-20); Calcium 9.6 mg/dl (8.5-10.1); Creatinine Clr Calc Pharmacy 117.3 ml/min; Phosphorus 4.1 mg/dl (2.5-4.9)
[2022-01-05] MEDS: ICU ELECTROLYTE REPLACEMENT PROTOCOL SCH (06:16)
[2022-01-05] MEDS: MAGNESIUM OXIDE 400 MG TAB NG SCH ×2 (06:28→10:46)
[2022-01-05] MEDS: LANSOPRAZOLE 30 MG SOLTAB PO SCH (07:44)
[2022-01-05] MEDS: SENNOSIDES 8.8 MG/5 ML UDC PO SCH ×2 (07:45→20:58)
[2022-01-05] MEDS: DOCUSATE SODIUM SYRUP 100 MG/10 ML UDC PO SCH ×2 (07:45→20:56)
[2022-01-05] MEDS: cloNIDine HCL 0.1 MG TAB PO SCH ×3 (07:45→20:55)
[2022-01-05] MEDS: MULTI VIT W/MINERALS LIQUID 15 ML UDP GT SCH (07:45)
--- NOTE | 2022-01-05 07:46 | Hospitalist Progress Note ---
Date of Service January 05, 2022 Assessment & Plan (1) Delirium tremens: Plan: Ongoing, severe, remains with significant agitation with attempts to wean Precedex despite being on scheduled ativan It is unknown how much he drank prior to admission as per his sister but she states he would frequently "be wasted" when they would talk on the phone Precedex drip weaned off started Zyprexa only using as needed Ativan and Haldol if behavior is an issue may consider using Seroquel or even using some Neurontin will discuss with psychiatry if no improvement on 01/06/2022 Does seem slightly improved with mentation and able to interact verbally a bit on 01/01, but overall severely lethargic and becomes agitated very easily -s/p high-dose thiamine x 2 days, now once daily IV at 250mg -continue folic acid IV -NGT placement placed endoscopically by GI on 01/01 after multiple failed attempts--> now at goal on tube feeds -replace lytes as per ICU protocol, follow daily labs (2) Encephalopathy: Plan: Ongoing, severe Metabolic 2/2 EtOH withdrawal, Wernicke's as above. And likely some toxic effects from Ativan/precedex/etc. Cannot rule out Wernicke's encephalopathy although this has been adequately treated at this point. Lyme Western Blot IgG positive. Western blot IgM with 1/3 positive. I can't rule out Lyme contributing to clinical picture - could have early disseminated Lyme or later stage Lyme. He did also have positive Lyme in 2017 but unclear if he was treated at that time head CT at admission with atrophy/ventriculomegaly but no ICH, CVA, etc. MRI brain on 01/03 not optimal study but negative For Wernicke's -- s/p thiamine 500mg IV TID x 2 days, now 250mg IV daily. Did not check a B1 level as it would likely be inaccurate due to copious supplementation given since admission. TSH, B12 levels both wnl. Over the weekend had low-grade fevers (and now mild hypothermia) - infectious w/u sent - cxr, blood cx's, procal, etc. Labs reassuring. No leukocytosis. Cultures remain negative. Remains on rocephin 2gm IV daily for potential Lyme. RPR is nonreactive. Brain imaging last on 01/03 MRI is negative Previous neuropsych-he has known learning disabilities. He has been in and out of group home, abused illicit drugs and EtOH -Zyprexa and as needed Ativan on 01/05/2022 (3) Positive Lyme disease serology: Plan: Western blot - IgM negative; IgG very positive with nearly all bands positive. this would suggest early disseminated Lyme disease or later stage Lyme. since IgM is negative we are not dealing with acute/early stage Lyme. As above, he was also this positive in 2017 but unclear if had treatment at that time day #9 rocephin 2gm IV daily. the patient had been living in a home in the [facility] near [place] for many years and likely had significant tick exposure. would Rx for 4 weeks with rocephin and transition to po doxy once taking po (4) Hypertension: Plan: Cont metoprolol via NG, increase dose 01/05/22 started clonidine 0.1mg per NG bid and increased to tid today IV hydralazine prn. Needed nicardipine drip initially (5) Alcohol dependence: Plan: See above (6) Hepatitis C: Plan: Chronic, previously seen by ID in 2019 and was offered treatment, however declined at that time. Reportedly has received hep A and B vaccines. Has concurrent alcoholic hepatitis but ast/alt are now close to normal. Ammonia level on 12/23 was wnl. Patient with prior h/o drug abuse and has been incarcerated for illicit drugs in the past. checking HIV with consent given by sister (7) Hypertensive urgency: Plan: Improved with Rx of DTs and receiving sedation along with IV BP meds as above. Labile BPs depending on level of agitation. hydralazine scheduled and prn continue metoprolol creased dose on 01/05 clonidine (8) Hypomagnesemia: Plan: continue daily replacement to keep> 2.0 follow levels on labs Replacing K+ daily as well and following BMP (9) PUD (peptic ulcer disease): Plan: seen on EGD-duodenal ulceration, no bleeding no melena here, hgb stable continue PPI IV Plan: DVT proph - lovenox FEN - continue enteral feeds, free water flushes, no longer on IVFs, Nutrition on board Sister reports that he has told her recently he no longer can live in his current home (of which she is not sure the location)-so essentially he is currently homeless. 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 Head exam is normocephalic atraumatic Neck is without JVD, thyromegaly, or carotid bruits. Lungs are diminished bilaterally Cardiac exam, Rhythm is regular.. No murmurs, rubs or gallops. Abdominal exam reveals normal bowel sounds, soft non tender, no masses Extremities are nonedematous and both pedal pulses are present Neurologic exam is alert to voice and stimuli spontaneously moves extremities does not follow commands Skin is without bruises or rashes Psychologically is without concerns for anxiety or depression.. Results & Data Results & Data ([facility]) Vital Signs (Past 12 Hours) Vital Signs Temp Pulse Pulse Resp BP Pulse Ox 01/05/22 06:20 99.0 F 95 H 16 162/100 H 92 01/05/22 05:00 99.0 F 95 H 16 169/101 H 95 01/05/22 03:00 99.3 F 94 H 16 142/89 H 94 01/05/22 02:00 99.3 F 99 H 18 166/109 H 94 01/05/22 00:00 99.5 F 88 88 16 127/87 93 01/04/22 22:00 99.5 F 88 16 142/81 H 95 01/04/22 21:00 99.5 F 86 16 116/65 94 PG Care Time/CCT Total # of Minutes Spent Total Time Spent with Patient: Total time spent is greater than 50% in coordination of care (as documented) at patient's floor/unit and/or counseling patient: Coding Level of Care Code 38443 Subseq Hosp Care Lvl 2 Diagnoses Delirium tremens F10.231 Encephalopathy G93.40 Positive Lyme disease serology R76.8 Hypertension I10 Alcohol dependence F10.251 Complication of substance-induced condition: with hallucinations Substance use status: alcohol-induced psychotic disorder Hepatitis C B19.20 Hypertensive urgency I16.0 Hypomagnesemia E83.42 PUD (peptic ulcer disease) K27.9 (1) Alcohol dependence Complication of substance-induced condition: with hallucinations Substance use status: alcohol-induced psychotic disorder Qualified Code(s): 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
[2022-01-05] MEDS: cefTRIAXone SODIUM 2,000 MG in DEXTROSE 5% 50 ML IV SCH (07:48)
[2022-01-05] MEDS: THIAMINE HCL 250 MG in SODIUM CHLORIDE 0.9% 50 ML IV SCH (07:48)
[2022-01-05] MEDS: FOLIC ACID 1 MG in SYRINGE 9.8 ML IV SCH (07:48)
--- NOTE | 2022-01-05 07:58 | Critical Care Progress Note ---
Date of Service January 05, 2022 Assessment & Plan (1) Delirium tremens: (2) Hypertensive urgency: (3) Encephalopathy: (4) Alcohol dependence: (5) Hepatitis C: Plan: Impression: 66-year-old male presents to the ICU and what appears to be alcohol withdrawal/delirium tremens requiring IV Ativan and is currently restrained. Neuro - Metabolic encephalopathysuspect related to acute alcohol withdrawal. His admission ammonia level was normal. He remains on high-dose thiamine and scheduled benzodiazepines. We will add low-dose Zyprexa and continue to follow. Now off Precedex. Okay to transfer to floor with sitter. Cardiac -hypertension: Continue clonidine. Will place on scheduled hydralazine 25 mg p.o. every 6 hours. Respiratory - No history of pulmonary disease and currently maintaining oxygen saturations on room air without labored breathing. Monitor on continuous pulse ox. Chest x- ray 12/28 with pulmonary vascular congestion. GI - Transaminitismild, likely secondary to fatty liver disease versus cirrhosis in the setting of alcohol abuse and hepatitis C. Reportedly declined treatment in 2018 for hep C. NG tube is in place. Continue tube feeding per dietary and free water flushes. RENAL/LYTES - Creatinine within normal limits. ICU electrolyte protocol ordered. - Strict I's and O's. OK to discontinue osborn at this time. ENDO - No history of diabetes or thyroid disease ICU hyperglycemic protocol HEME - H&H stable, monitor routine CBCs ID - No signs of infection. Blood cultures negative from 12/27. However, Lyme antib ryann is positive. Patient started on Rocephin per hospitalist team, duration per hospitalist. --Prophylaxis VTE: Lovenox GI: None Lines: Peripheral ultrasound-guided Diet: Continue tube feeds. Patient is no longer on vasoactive drips and appears appropriate to transfer to the floor with a sitter. will need aggressive PT and OT evaluations when medically appropriate. Please note the above document was generated using voice recognition software. It may contain grammatical, syntax or spelling errors. Admission and Anticipated Discharge Date Admission Date: December 23, 2021 Subjective Patient seen and examined. EMR reviewed. Discussed with off going parts representative and with overnight critical care THA. The patient remains confused. He is awake. He does respond to some verbal commands but speech is somewhat slurred. He is not required additional doses of sedatives overnight. Review of Systems Review of Systems: Unobtainable due to mental health condition Physical Exam Constitutional: Patient is confused. Speech is dysarthric. Neck: trachea midline, no thyromegaly Respiratory: normal respiratory effort, lungs clear to auscultation Cardiovascular: RRR, no murmur, no edema Gastrointestinal (Abdomen): normal bowel sounds, soft, nontender, no hepatosplenomegaly Musculoskeletal: Extremities: extremities normal to inspection Skin: no rashes, warm and dry Neurologic: Nonfocal exam Lymphatic: no cervical lymphadenopathy Results & Data Results & Data ([facility]) Vital Signs (Past 12 Hours) Vital Signs Temp Pulse Pulse Resp BP Pulse Ox 01/05/22 06:20 37.2 C 95 H 16 162/100 H 92 01/05/22 05:00 37.2 C 95 H 16 169/101 H 95 01/05/22 03:00 37.4 C 94 H 16 142/89 H 94 01/05/22 02:00 37.4 C 99 H 18 166/109 H 94 01/05/22 00:00 37.5 C 88 88 16 127/87 93 01/04/22 22:00 37.5 C 88 16 142/81 H 95 01/04/22 21:00 37.5 C 86 16 116/65 94 Critical Care Results & Data Vital Signs (Past 12 Hours) Vital Signs Temp Pulse Pulse Resp BP Pulse Ox 01/05/22 06:20 37.2 C 95 H 16 162/100 H 92 01/05/22 05:00 37.2 C 95 H 16 169/101 H 95 01/05/22 03:00 37.4 C 94 H 16 142/89 H 94 01/05/22 02:00 37.4 C 99 H 18 166/109 H 94 01/05/22 00:00 37.5 C 88 88 16 127/87 93 01/04/22 22:00 37.5 C 88 16 142/81 H 95 01/04/22 21:00 37.5 C 86 16 116/65 94 Lab & Micro Results (Past 24 Hours) No Data to Display Na 137 mmol/L (136-145) 01/05/22 K 4.0 mmol/L (3.5-5.1) 01/05/22 Cl 103 mmol/L (98-107) 01/05/22 CO2 28 mmol/L (21-32) 01/05/22 Anion Gap 6 (3-11) 01/05/22 BUN 23 mg/dl (6-23) 01/05/22 Creatinine 0.66 mg/dl (0.6-1.4) 01/05/22 Estimated GFR ( Amer) 116.0 ml/min 01/05/22 Estimated GFR (Non-Af Amer) 100.0 ml/min 01/05/22 BUN/Creatinine Ratio 34.8 (10-20) H 01/05/22 Glu 101 mg/dl (70-99(Fasting)) H 01/05/22 Ca 9.6 mg/dl (8.5-10.1) 01/05/22 Phosphorus Level 4.1 mg/dl (2.5-4.9) 01/05/22 Mg 2.0 mg/dl (1.7-2.4) 01/05/22 05:24 01/05/22 Calcium Level 9.6 mg/dl (8.5-10.1) 01/05/22 05:24 01/05/22 I & O Totals 24 Hours 01/04/22 01/05/22 01/06/22 06:59 06:59 06:59 Intake Total 1486.379 / 6588.730 6505.5 / 1786.5 Output Total 1876 / 1876 1582 / 1582 Balance -389.621 / -389.621 204.5 / 204.5 Cumulative 12/23/21 11:55 thru 01/05/22 06:25 Intake Total 17442.231 Output Total 08780 Balance 9141.231 RT Ventilator Mngmt (Last Documented) Ventilator Ordered Settings Respiratory Rate 16 01/05/22 06:20 Ventilator - PT Measurements Respiratory Rate 16 End-Tidal CO2 30 Coding Level of Care Code 84069 Subseq Hosp Care Lvl 3 Diagnoses Delirium tremens F10.231 Hypertensive urgency I16.0 Encephalopathy G93.40 Alcohol dependence F10.251 Complication of substance-induced condition: with hallucinations Substance use status: alcohol-induced psychotic disorder Hepatitis C B19.20 (1) Alcohol dependence Complication of substance-induced condition: with hallucinations Substance use status: alcohol-induced psychotic disorder Qualified Code(s): 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
[2022-01-05] MEDS: OLANZAPINE 2.5 MG TAB PO SCH ×2 (08:42→20:58)
[2022-01-05] MEDS: hydrALAZINE HCL 25 MG TAB PO SCH ×3 (08:42→20:57)
[2022-01-05] MEDS: METOPROLOL TARTRATE 50 MG TAB PO SCH ×2 (08:43→20:57)
[2022-01-05] MEDS: PEPTAMEN INTENSE VHP 1.0 CAL 1,000 ML BAG GT SCH (12:22)
[2022-01-05] MEDS ORDERED: HALOPERIDOL LACTATE 5 MG/ML 1 ML VIAL IV PRN (17:51)
[2022-01-05] MEDS: ENOXAPARIN INJ 40 MG/0.4 ML SYR SQ SCH (20:56)
[2022-01-06] MEDS: hydrALAZINE HCL 25 MG TAB PO SCH ×4 (02:03→20:19)
[2022-01-06] MEDS: TUBE FEEDING WATER FLUSH NG SCH ×6 (03:46→23:45)
[2022-01-06] MEDS: PEPTAMEN INTENSE VHP 1.0 CAL 1,000 ML BAG GT SCH (03:47)
[2022-01-06] MEDS: cefTRIAXone SODIUM 2,000 MG in DEXTROSE 5% 50 ML IV SCH (08:52)
[2022-01-06] MEDS: THIAMINE HCL 250 MG in SODIUM CHLORIDE 0.9% 50 ML IV SCH (08:52)
[2022-01-06] MEDS: LANSOPRAZOLE 30 MG SOLTAB PO SCH (08:59)
[2022-01-06] MEDS: FOLIC ACID 1 MG in SYRINGE 9.8 ML IV SCH (08:59)
[2022-01-06] MEDS: cloNIDine HCL 0.1 MG TAB PO SCH ×3 (09:00→20:19)
[2022-01-06] MEDS: METOPROLOL TARTRATE 50 MG TAB PO SCH ×2 (09:07→20:20)
[2022-01-06] MEDS: MULTI VIT W/MINERALS LIQUID 15 ML UDP GT SCH (09:08)
[2022-01-06] MEDS: OLANZAPINE 2.5 MG TAB PO SCH ×2 (09:08→20:20)
[2022-01-06] MEDS: SENNOSIDES 8.8 MG/5 ML UDC PO SCH ×2 (09:09→20:20)
[2022-01-06] MEDS: DOCUSATE SODIUM SYRUP 100 MG/10 ML UDC PO SCH ×2 (09:09→20:19)
--- NOTE | 2022-01-06 17:14 | XRay Report ---
XR KUB/Abdomen 1 view CLINICAL HISTORY: dislodged NG tube; check placement TECHNIQUE: 1 view of the abdomen was obtained. Comparison: Comparison is made to abdomen radiograph 01/01/2022 FINDINGS: Enteric tube terminates within the stomach. The osseous structures are grossly unremarkable. The dusty l gas pattern is nonobstructive where visualized. IMPRESSION: Enteric tube terminates within the stomach. ACT 112: Negative or not required by law. Electronically signed by: Jose Grimm M.D. 01/06/2022 5:13 PM
[2022-01-06] MEDS: METOPROLOL TARTRATE 1 MG/ML VIAL IV SCH ×2 (20:16→23:39)
[2022-01-06] MEDS: D5W AND NSS 1,000 ML IV SCH (20:16)
[2022-01-06] MEDS: hydrALAZINE HCL 20 MG/ML VIAL IV SCH (20:18)
[2022-01-06] MEDS: ENOXAPARIN INJ 40 MG/0.4 ML SYR SQ SCH (20:19)
--- NOTE | 2022-01-06 20:28 | Hospitalist Progress Note ---
Date of Service January 06, 2022 Assessment & Plan (1) Delirium tremens: Plan: Appears resolved. Is 14+ days out from last etoh beverage. s/p ICU stay for his DTs - required Precedex drip, IV ativan frequently, etc. s/p high-dose thiamine x 2 days earlier in the stay - now on once daily IV thiamine. At this point is ongoing encephalopathy could be due to multiple etiologies - see below. (2) Encephalopathy: Plan: Ongoing. Main culprit most of the stay was the severe DTs. DTs likely resolved at this point. Cannot rule out Wernicke's encephalopathy which in many cases is irreversible even with high-dose thiamine. Lyme Western Blot IgG VERY positive. Western blot IgM negative. I can't rule out Lyme contributing to clinical picture - could have early disseminated Lyme or later stage Lyme. Can't rule out alcoholic dementia at baseline. TSH, B12 levels both wnl. head CT at admission with atrophy/ventriculomegaly but no ICH, CVA, etc. RPR is nonreactive. Ammonia levels wnl. MRI brain 01/03 neg for acute findings. Now that he is off sedatives and is receiving zyprexa hopefully we can see where his mental status settles out at. This could take days or even weeks. Continue supportive care. (3) Positive Lyme disease serology: Plan: Western blot results -- IgM negative; IgG very positive with nearly all bands positive. this would suggest early disseminated Lyme disease or later stage Lyme. since IgM was negative we are not dealing with acute/early stage Lyme. day #11 rocephin 2gm IV daily. the patient had been living in a home in the [facility] [place] for many years and likely had significant tick exposure. would Rx with 2 weeks of rocephin, then 2 weeks of doxy, for total 4 weeks of Rx. (4) Hypertension: Plan: Cont IV beta angelita scheduled. Cont IV hydralazine scheduled. Clonidine on hold due to NPO status. Can resume in patch form if needed. (5) Alcohol dependence: Plan: See above (6) Hepatitis C: Plan: Chronic, previously seen by ID in 2019 and was offered treatment, however declined at that time. Reportedly has received hep A and B vaccines. Had concurrent alcoholic hepatitis but LFTs wnl. Patient with prior h/o drug abuse and had been incarcerated for illicit drugs in the past. Would benefit from HIV testing - need to get consent from family for such. (7) Hypertensive urgency: Plan: early in the hospital stay, likely due to severe agitation from DTs resolved (8) Hypomagnesemia: Plan: replaced resolved (9) PUD (peptic ulcer disease): Plan: cont PPI duodenal bulb ulcer on recent EGD by [facility] (10) Garbled speech: Plan: this could be due to effects from recent sedation (ativan) and/or the zyprexa no acute CVA seen on MRI brain on 01/03 I am concerned that he could have dysphagia/heightened aspiration risk speech therapy consult for swallow eval keep NPO until then (11) Sphenoid sinusitis: Plan: as seen on MRI brain rocephin for Lyme should suffice copious mucous in the throat could be from the sinus infection Plan: DVT proph - lovenox FEN - resume maintenance fluids since we had to pull the coresafe, labs again in am daughter extensively updated at bedside today Bonnie Alexandra, pt's sister -- [phone] -- she resides in [place] - updated by me earlier in the hospital stay Admission and Anticipated Discharge Date Admission Date: December 23, 2021 Subjective pt's daughter was at bedside during the visit she reports she last saw him on Wednesday and his overall level of being awake/thinking/memory is improved in comparison to then I asked him basic orientation questions - he thought it was "2030" he initially did not know where he was he couldn't tell us he was in the hospital his daughter re-asked some of the above questions he ultimately stated he was in "[place]" and then said he was in the "emergency room" multiple times he was cracking jokes which were unrelated to what we were discussing his speech was very hard to understand - marbly/dysarthric/low-pitched staff report that he pulled on his NG tube earlier today (about 2pm) the NG tube was advanced back to the prior position despite repositioning the nursing staff could not flush the tube KUB x-ray obtained showing the NG was in the stomach despite flushing with water and COKE (x 2) today the tube would not flush; thus, it was removed late this evening Review of Systems Review of Systems: denies pain in any location denies dyspnea denies headache coughing throughout the visit staff report he can expectorate some of the sputum Physical Exam Physical Exam: gen - NAD; coughing at times; awake, does follow commands; garbly/marbly speech with low pitch mouth - MMM, some sputum pooling in posterior pharynx eyes - PERRL, injected conjunctiva neck - no JVD heart - RRR, s1 s2, no murmur lungs - CTA b/l abd - soft, NT, ND, BS+ ext - no edema, pulses 2+ b/l skin - no rash; jonatan kers right jewish of scalp neuro - no tremor; strength is about symmetric, 5/5 both arms; severe hip flexion weakness (really could not raise either leg); able to wiggle toes and flex/extend the ankles however Results & Data Results & Data ([facility]) Vital Signs (Past 12 Hours) Vital Signs Temp Pulse Pulse Resp BP BP Pulse Ox 01/06/22 20:16 102 H 159/98 H 01/06/22 19:29 36.7 C 100 H 18 159/98 H 93 01/06/22 15:56 36.4 C L 93 H 20 147/90 H 95 01/06/22 11:41 36.6 C 81 22 130/81 96 PG Care Time/CCT Total # of Minutes Spent Total Time Spent with Patient: Total time spent is greater than 50% in coordination of care (as documented) at patient's floor/unit and/or counseling patient: Coding Level of Care Code 72522 Subseq Hosp Care Lvl 3 Diagnoses Delirium tremens F10.231 Encephalopathy G93.40 Positive Lyme disease serology R76.8 Hypertension I10 Alcohol dependence F10.251 Complication of substance-induced condition: with hallucinations Substance use status: alcohol-induced psychotic disorder Hepatitis C B19.20 Hypertensive urgency I16.0 Hypomagnesemia E83.42 PUD (peptic ulcer disease) K27.9 Garbled speech R47.89 Sphenoid sinusitis J32.3 (1) Alcohol dependence Complication of substance-induced condition: with hallucinations Substance use status: alcohol-induced psychotic disorder Qualified Code(s): 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
[2022-01-06] MEDS: LORazepam 2 MG/1 ML VIAL IV PRN (22:30)
[2022-01-07] MEDS: hydrALAZINE HCL 25 MG TAB PO SCH ×5 (01:32→20:06)
[2022-01-07] MEDS: hydrALAZINE HCL 20 MG/ML VIAL IV PRN ×2 (01:35→15:51)
[2022-01-07] MEDS: LORazepam 2 MG/1 ML VIAL IV PRN ×3 (02:43→19:37)
[2022-01-07] MEDS: TUBE FEEDING WATER FLUSH NG SCH ×5 (04:06→19:48)
[2022-01-07] MEDS: hydrALAZINE HCL 20 MG/ML VIAL IV SCH ×3 (04:07→19:45)
[2022-01-07] MEDS: D5W AND NSS 1,000 ML IV SCH ×2 (05:35→15:50)
[2022-01-07] MEDS: METOPROLOL TARTRATE 1 MG/ML VIAL IV SCH ×4 (05:37→23:00)
[2022-01-07 06:40] LABS: BUN Creatinine Ratio 32.3 (10-20); Calcium 9.3 mg/dl (8.5-10.1); Creatinine Clr Calc Pharmacy 120.5 ml/min; Est GFR (African American) 116.7 ml/min; Est GFR (Non-African American) 100.7 ml/min; Potassium 3.7 mmol/L (3.5-5.1)
[2022-01-07] MEDS: cefTRIAXone SODIUM 2,000 MG in DEXTROSE 5% 50 ML IV SCH (08:43)
[2022-01-07] MEDS: THIAMINE HCL 250 MG in SODIUM CHLORIDE 0.9% 50 ML IV SCH (08:44)
[2022-01-07] MEDS: FOLIC ACID 1 MG in SYRINGE 9.8 ML IV SCH (08:47)
[2022-01-07] MEDS: OLANZAPINE 2.5 MG TAB PO SCH ×3 (09:38→21:16)
[2022-01-07] MEDS: DOCUSATE SODIUM SYRUP 100 MG/10 ML UDC PO SCH ×3 (09:38→21:16)
[2022-01-07] MEDS: SENNOSIDES 8.8 MG/5 ML UDC PO SCH ×2 (09:38→19:55)
[2022-01-07] MEDS: cloNIDine HCL 0.1 MG TAB PO SCH ×4 (09:38→21:15)
[2022-01-07] MEDS: LANSOPRAZOLE 30 MG SOLTAB PO SCH (09:38)
[2022-01-07] MEDS: METOPROLOL TARTRATE 50 MG TAB PO SCH ×3 (09:38→21:16)
[2022-01-07] MEDS: MULTI VIT W/MINERALS LIQUID 15 ML UDP GT SCH (09:38)
[2022-01-07] MEDS: ENOXAPARIN INJ 40 MG/0.4 ML SYR SQ SCH (19:55)
--- NOTE | 2022-01-07 20:53 | Hospitalist Progress Note ---
Date of Service January 07, 2022 Assessment & Plan (1) Delirium tremens: Plan: Resolved. Is 14+ days out from last etoh beverage. s/p ICU stay for his DTs - required Precedex drip, IV ativan frequently, etc. s/p high-dose thiamine x 2 days earlier in the stay - now on once daily IV thiamine. At this point is ongoing encephalopathy could be due to multiple etiologies - see below. (2) Encephalopathy: Plan: Ongoing. Main culprit most of the stay was the severe DTs. DTs resolved at this point. Cannot rule out Wernicke's encephalopathy which in many cases is irreversible even with high-dose thiamine. Lyme Western Blot IgG VERY positive. Western blot IgM negative. I can't rule out Lyme contributing to clinical picture - could have early disseminated Lyme or later stage Lyme. Can't rule out alcoholic dementia at baseline. TSH, B12 levels both wnl. head CT at admission with atrophy/ventriculomegaly but no ICH, CVA, etc. RPR is nonreactive. Ammonia levels wnl. MRI brain 01/03 neg for acute findings. He did not receive zyprexa last evening or this AM --- perhaps that is why he is more awake today. With that said he should continue on at least once daily dosing given his severe confusion. Will change zyprexa to 2.5mg HS. stop am dose. I think over the next week we will have a better understanding of what his "baseline" mental status/cognitive status is. Per his sister Bonnie who lives out of town he has had intermittent hallucinations/psychosis over the years. I am uncertain if he has psychotic d/o at baseline, substance induced mood disorder with psychosis (previous drug use, heavy etoh, etc), dementia with hallucinations, etc. Consider psych consult. (3) Positive Lyme disease serology: Plan: Western blot results -- IgM negative; IgG very positive with nearly all bands positive. this would suggest early disseminated Lyme disease or later stage Lyme. since IgM was negative we are not dealing with acute/early stage Lyme. day #12 rocephin 2gm IV daily. the patient had been living in a home in the [facility] near [place] for many years and likely had significant tick exposure. would Rx with 2 weeks of rocephin, then 2 weeks of doxy, for total 4 weeks of Rx. (4) Hypertension: Plan: Cont IV beta angelita scheduled. Cont IV hydralazine scheduled. Once PO intake is consistently reliable will change all BP meds over to oral. (5) Alcohol dependence: Plan: See above (6) Hepatitis C: Plan: Chronic, previously seen by ID in 2019 and was offered treatment, however declined at that time. Reportedly has received hep A and B vaccines. Had concurrent alcoholic hepatitis but LFTs wnl. Patient with prior h/o drug abuse and had been incarcerated for illicit drugs in the past. Would benefit from HIV testing - need to get consent from family for such. (7) Hypertensive urgency: Plan: early in the hospital stay, likely due to severe agitation from DTs resolved (8) Hypomagnesemia: Plan: replaced resolved (9) PUD (peptic ulcer disease): Plan: cont PPI duodenal bulb ulcer on recent EGD by [facility] (10) Kedar speech: Plan: improved today. suspect it was medication related. continue to monitor. (11) Sphenoid sinusitis: Plan: as seen on MRI brain rocephin for Lyme should suffice copious mucous in the throat could be from the sinus infection mucous is improved today (12) Learning disabilities: Plan: see scanned neuropsych testing done in the early Plan: DVT proph - lovenox FEN - can stop IV fluids since he was cleared by speech for a diet daughter extensively updated at bedside yesterday Bonnie Morris, pt's sister -- [phone] -- she resides in [place] - updated by me earlier in the hospital stay dispo - very uncertain, social work to assist likely to need long-term placement will need physical rehab initially due to severe weakness Admission and Anticipated Discharge Date Admission Date: December 23, 2021 Subjective pt much more awake/alert today but he did not know the year or why he was here; also thought it was October he did know he was at "[facility]" he stated "his friends were fighting that's why I'm here" at one point he said he needed to go visit Jefe Chong he then started talking about a [place] near [place], [place] then began to talk about other unrelated topics including that he had "gone for a ride yesterday" he laughed several times at jokes he was making; the jokes were unrelated to anything we were discussing was cleared by speech for a diet; did eat lunch today cough is improved tele overnight wnl Review of Systems Review of Systems: Unobtainable due to cognitive status Physical Exam Physical Exam: gen - NAD; more awake/alert today but still confused; he does not track well when asked to look at various objects in the room; flat affect, almost parkinson's like mouth - MMM eyes - PERRL, injected conjunctiva; when asked to track to assess extraocular muscles he really does not track; can't rule out an YULY neck - no JVD heart - RRR, s1 s2, no murmur lungs - CTA b/l abd - soft, NT, ND, BS+ ext - no edema, pulses 2+ b/l neuro - no tremor, no asterixis Results & Data Results & Data ([facility]) Vital Signs (Past 12 Hours) Vital Signs Temp Pulse Pulse Resp BP Pulse Ox 01/07/22 19:25 36.8 C 99 H 19 179/107 H 95 01/07/22 18:05 116 H 01/07/22 16:33 176/84 H 01/07/22 15:08 36.7 C 104 H 24 187/82 H 95 01/07/22 11:18 36.8 C 89 24 165/96 H 94 01/07/22 11:07 95 H Laboratory Results Laboratory Results - last 24 hr 01/07/22 01/07/22 05:18 05:18 Sodium 140 Potassium 3.7 Chloride 108 H Carbon Dioxide 25 Anion Gap 7 BUN 21 Creatinine 0.65 Est Cr Clr Drug Dosing 120.5 Est GFR ( Amer) 116.7 Est GFR (Non-Af Amer) 100.7 BUN/Creatinine Ratio 32.3 H Glucose 111 H Calcium 9.3 Total Creatine Kinase 37 PG Care Time/CCT Total # of Minutes Spent Total Time Spent with Patient: Total time spent is greater than 50% in coordination of care (as documented) at patient's floor/unit and/or counseling patient: Coding Level of Care Code 13474 Subseq Hosp Care Lvl 2 Diagnoses Delirium tremens F10.231 Encephalopathy G93.40 Positive Lyme disease serology R76.8 Hypertension I10 Alcohol dependence F10.251 Complication of substance-induced condition: with hallucinations Substance use status: alcohol-induced psychotic disorder Hepatitis C B19.20 Hypertensive urgency I16.0 Hypomagnesemia E83.42 PUD (peptic ulcer disease) K27.9 Garbled speech R47.89 Sphenoid sinusitis J32.3 Learning disabilities F81.9 (1) Alcohol dependence Complication of substance-induced condition: with hallucinations Substance use status: alcohol-induced psychotic disorder Qualified Code(s): 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
[2022-01-08] MEDS: TUBE FEEDING WATER FLUSH NG SCH ×6 (00:18→20:42)
[2022-01-08] MEDS: hydrALAZINE HCL 25 MG TAB PO SCH ×4 (01:04→20:32)
[2022-01-08] MEDS: LORazepam 2 MG/1 ML VIAL IV PRN (01:32)
[2022-01-08] MEDS: hydrALAZINE HCL 20 MG/ML VIAL IV SCH ×3 (03:13→20:32)
[2022-01-08] MEDS: METOPROLOL TARTRATE 1 MG/ML VIAL IV SCH ×3 (05:49→18:08)
[2022-01-08] MEDS: hydrALAZINE HCL 20 MG/ML VIAL IV PRN (06:26)
[2022-01-08] MEDS: FOLIC ACID 1 MG in SYRINGE 9.8 ML IV SCH (09:18)
[2022-01-08] MEDS: OLANZAPINE 2.5 MG TAB PO SCH (09:18)
[2022-01-08] MEDS: DOCUSATE SODIUM SYRUP 100 MG/10 ML UDC PO SCH ×2 (09:18→20:39)
[2022-01-08] MEDS: MULTI VIT W/MINERALS LIQUID 15 ML UDP GT SCH (09:18)
[2022-01-08] MEDS: METOPROLOL TARTRATE 50 MG TAB PO SCH ×2 (09:18→20:33)
[2022-01-08] MEDS: SENNOSIDES 8.8 MG/5 ML UDC PO SCH ×2 (09:19→20:39)
[2022-01-08] MEDS: LANSOPRAZOLE 30 MG SOLTAB PO SCH (09:19)
[2022-01-08] MEDS: THIAMINE HCL 250 MG in SODIUM CHLORIDE 0.9% 50 ML IV SCH (09:19)
[2022-01-08] MEDS: cefTRIAXone SODIUM 2,000 MG in DEXTROSE 5% 50 ML IV SCH (09:19)
[2022-01-08] MEDS: cloNIDine HCL 0.1 MG TAB PO SCH ×3 (10:05→20:43)
--- NOTE | 2022-01-08 17:07 | Hospitalist Progress Note ---
Date of Service January 08, 2022 Assessment & Plan (1) Delirium tremens: Plan: Resolved. Is 16+ days out from last etoh consumption s/p ICU stay for his DTs - required Precedex drip, IV ativan frequently, etc. Patient currently receiving Haldol, lorazepam, Zyprexa s/p high-dose thiamine x 2 days earlier in the stay - now on once daily IV thiamine. Continue to monitor on telemetry due to lethargy (2) Encephalopathy: Plan: Ongoing. Main culprit most of the stay was the severe DTs. DTs resolved at this point. Cannot rule out Wernicke's encephalopathy which in many cases is irreversible even with high-dose thiamine. Lyme Western Blot IgG VERY positive. Western blot IgM negative. I can't rule out Lyme contributing to clinical picture - could have early disseminated Lyme or later stage Lyme. Can't rule out alcoholic dementia at baseline. TSH, B12 levels both wnl. head CT at admission with atrophy/ventriculomegaly but no ICH, CVA, etc. RPR is nonreactive. Ammonia levels wnl. MRI brain 01/03 neg for acute findings. He did receive zyprexa last evening and this AM Patient also received Haldol last night as well as lorazepam I will adjust his Haldol to be as needed. I will adjust his lorazepam as needed. I will adjust his Zyprexa to be as needed. Per Dr. Tony's note yesterday: We will possibly have a better understanding of what his "baseline" mental status/cognitive status is over the next week Per his sister Bonnie who lives out of town he has had intermittent hallucinations/psychosis over the years. I am uncertain if he has psychotic d/o at baseline, substance induced mood disorder with psychosis (previous drug use, heavy etoh, etc), dementia with hallucinations, etc. Consider psych consult to help with medication management if no further improvement Anticipated changing IV medications to p.o. today. However I think the patient is still too lethargic and at risk for aspiration. (3) Positive Lyme disease serology: Plan: Western blot results -- IgM negative; IgG very positive with nearly all bands positive. this would suggest early disseminated Lyme disease or later stage Lyme. since IgM was negative we are not dealing with acute/early stage Lyme. day #13 rocephin 2gm IV daily. the patient had been living in a home in the [facility] near [place] for many years and likely had significant tick exposure. would Rx with 2 weeks of rocephin (today is day #13) then 2 weeks of doxycycline 100 mg p.o. twice daily, for total 4 weeks of abx (4) Hypertension: Plan: Cont IV beta angelita scheduled. Cont IV hydralazine scheduled. Once PO intake is consistently reliable will change all BP meds over to oral. (5) Alcohol dependence: Plan: See above (6) Hepatitis C: Plan: Chronic, previously seen by ID in 2019 and was offered treatment, however declined at that time. Reportedly has received hep A and B vaccines. Had concurrent alcoholic hepatitis but LFTs wnl. Patient with prior h/o drug abuse and had been incarcerated for illicit drugs in the past. Would benefit from HIV testing - need to get consent from family for such. (7) Hypertensive urgency: Plan: early in the hospital stay, likely due to severe agitation from DTs resolved (8) Hypomagnesemia: Plan: replaced resolved (9) PUD (peptic ulcer disease): Plan: cont PPI duodenal bulb ulcer on recent EGD by [facility] (10) Garbled speech: Plan: Suspect it was medication related. Lethargic today Continue to monitor. (11) Sphenoid sinusitis: Plan: as seen on MRI brain rocephin for Lyme should suffice (12) Learning disabilities: Plan: see scanned neuropsych testing done in the early Plan: DVT proph - lovenox FEN - can stop IV fluids since he was cleared by speech for a diet daughter extensively updated at bedside by Dr. Cecily Morris, pt's sister -- [phone] -- she resides in [place] - updated earlier in the hospital stay dispo - very uncertain, social work to assist likely to need long-term placement will need physical rehab initially due to severe weakness -not able to participate in PT/OT evaluations at this time Admission and Anticipated Discharge Date Admission Date: December 23, 2021 Supervising Physician Co-Signing Physician Notes Attending Attestation - Chart reviewed in detail, care plan d/w PA Mauricio Arvizu. I agree with the julio components of his documentation as well as his plan of care. Ramone Tony MD Subjective Attending: Dr. Tony Patient seen and examined in room 244. Patient is still somewhat lethargic. He does open eyes to command and spontaneously moves all 4 extremities. He does not verbally respond appropriately. Patient does not appear to have any tremors. He is not inappropriate with his behavior. I am unable to obtain review of systems. Review of Systems Review of Systems: Unobtainable due to reduced consciousness Physical Exam Physical Exam: GENERAL : No acute distress. Patient is somewhat lethargic. Possibly related to sedative medications EYES: No icterus, gaze conjugate pupils are equal and round and responsive to light NOSE: No evidence of epistaxis MOUTH: No lesions or candidiasis. Mucosa is moist NECK: Supple LUNGS: CTA B/L, no wheezes, rales or rhonchi HEART: Regular, rate controlled ABDOMEN: Soft, NT, ND, BS Present EXTREMITIES: No LE edema, pedal pulses intact NEURO: Patient opens eyes to command. Does not verbally respond. Patient did not follow commands regarding use of extremities. Patient did receive Haldol 5 mg overnight. He then received lorazepam, he then received olanzapine. Respiratory rate and saturations are appropriate. Results & Data Results & Data ([facility]) Vital Signs (Past 12 Hours) Vital Signs Temp Pulse Pulse Resp BP BP BP 01/08/22 15:34 36.7 C 75 18 144/88 H 01/08/22 12:12 91/62 L 01/08/22 11:26 36.6 C 73 18 99/64 L 01/08/22 07:14 36.9 C 103 H 19 168/88 H 01/08/22 06:27 168/95 H 01/08/22 05:49 101 H 189/92 H Pulse Ox 01/08/22 15:34 95 01/08/22 12:12 01/08/22 11:26 93 01/08/22 07:14 95 01/08/22 06:27 01/08/22 05:49 Critical Care Results & Data Vital Signs (Past 12 Hours) Vital Signs Temp Pulse Pulse Resp BP BP BP 01/08/22 15:34 36.7 C 75 18 144/88 H 01/08/22 12:12 91/62 L 01/08/22 11:26 36.6 C 73 18 99/64 L 01/08/22 07:14 36.9 C 103 H 19 168/88 H 01/08/22 06:27 168/95 H 01/08/22 05:49 101 H 189/92 H Pulse Ox 01/08/22 15:34 95 01/08/22 12:12 01/08/22 11:26 93 01/08/22 07:14 95 01/08/22 06:27 01/08/22 05:49 Lab & Micro Results (Past 24 Hours) RBC 4.70 M/uL (4.7-6.1) 01/09/22 WBC 6.76 K/uL (4.8-10.8) 01/09/22 Hgb 14.1 g/dL (14.0-18.0) 01/09/22 Hct 43.1 % (42-52) 01/09/22 MCV 91.7 fL (80-100) 01/09/22 MCH 30.0 pg (25-34) 01/09/22 MCHC 32.7 g/dL (32-36) 01/09/22 RDW Standard Deviation 48.4 fL (36.4-46.3) H 01/09/22 RDW Coefficient of Variation 14.3 % (11.5-14.5) 01/09/22 Plt Count 307 K/uL (130-400) 01/09/22 MPV 12.9 fL (7.4-10.4) H 01/09/22 Na 140 mmol/L (136-145) 01/09/22 K 3.5 mmol/L (3.5-5.1) 01/09/22 Cl 107 mmol/L (98-107) 01/09/22 CO2 25 mmol/L (21-32) 01/09/22 Anion Gap 8 (3-11) 01/09/22 BUN 25 mg/dl (6-23) H 01/09/22 Creatinine 0.52 mg/dl (0.6-1.4) L 01/09/22 Estimated GFR ( Amer) 127.9 ml/min 01/09/22 Estimated GFR (Non-Af Amer) 110.3 ml/min 01/09/22 BUN/Creatinine Ratio 48.1 (10-20) H 01/09/22 Glu 92 mg/dl (70-99(Fasting)) 01/09/22 Ca 9.5 mg/dl (8.5-10.1) 01/09/22 Calcium Level 9.5 mg/dl (8.5-10.1) 01/09/22 05:30 01/09/22 I & O Totals 24 Hours 01/07/22 01/08/22 01/09/22 06:59 06:59 06:59 Intake Total 1054.167 / 1667.495 8511.5 / 1782.5 222.5 / 222.5 Output Total 1350 / 1350 1825 / 1825 225 / 225 Balance -295.833 / -295.833 -42.5 / -42.5 -2.5 / -2.5 Cumulative 12/23/21 11:55 thru 01/08/22 10:16 Intake Total 56340.898 Output Total 52644 Balance 9677.898 RT Ventilator Mngmt (Last Documented) Ventilator Ordered Settings Respiratory Rate 18 01/08/22 15:34 Ventilator - PT Measurements Respiratory Rate 18 End-Tidal CO2 30 PG Care Time/CCT Total # of Minutes Spent Total Time Spent with Patient: Total time spent is greater than 50% in coordination of care (as documented) at patient's floor/unit and/or counseling patient: Coding Level of Care Code 34378 Subseq Hosp Care Lvl 2 Diagnoses Delirium tremens F10.231 Encephalopathy G93.40 Positive Lyme disease serology R76.8 Hypertension I10 Alcohol dependence F10.251 Complication of substance-induced condition: with hallucinations Substance use status: alcohol-induced psychotic disorder Hepatitis C B19.20 Hypertensive urgency I16.0 Hypomagnesemia E83.42 PUD (peptic ulcer disease) K27.9 Garbled speech R47.89 Sphenoid sinusitis J32.3 Learning disabilities F81.9 (1) Alcohol dependence Complication of substance-induced condition: with hallucinations Substance use status: alcohol-induced psychotic disorder Qualified Code(s): 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
[2022-01-08] MEDS ORDERED: OLANZAPINE 2.5 MG TAB PO PRN (17:08)
[2022-01-08] MEDS: ENOXAPARIN INJ 40 MG/0.4 ML SYR SQ SCH (20:33)
[2022-01-09] MEDS: METOPROLOL TARTRATE 1 MG/ML VIAL IV SCH ×4 (02:26→18:17)
[2022-01-09] MEDS: TUBE FEEDING WATER FLUSH NG SCH ×2 (02:26→05:40)
[2022-01-09] MEDS: hydrALAZINE HCL 20 MG/ML VIAL IV SCH ×3 (04:05→20:44)
[2022-01-09] MEDS: hydrALAZINE HCL 25 MG TAB PO SCH ×4 (04:52→21:14)
[2022-01-09 06:04] LABS: Hematocrit (blood only) 43.1 % (42-52); Hemoglobin 14.1 g/dL (14.0-18.0); Mean Corpuscular Hgb Conc 32.7 g/dL (32-36); Mean Corpuscular Volume 91.7 fL (80-100); Mean Platelet Volume 12.9 fL (7.4-10.4); Platelet Count 307 K/uL (130-400); RDW Coefficient of Variation 14.3 % (11.5-14.5); RDW Standard Deviation 48.4 fL (36.4-46.3); White Blood Count 6.76 K/uL (4.8-10.8)
[2022-01-09 06:27] LABS: BUN Creatinine Ratio 48.1 (10-20); Calcium 9.5 mg/dl (8.5-10.1); Creatinine Clr Calc Pharmacy 137.8 ml/min; Est GFR (African American) 127.9 ml/min; Est GFR (Non-African American) 110.3 ml/min; Potassium 3.5 mmol/L (3.5-5.1)
[2022-01-09] MEDS: cefTRIAXone SODIUM 2,000 MG in DEXTROSE 5% 50 ML IV SCH (08:26)
[2022-01-09] MEDS: METOPROLOL TARTRATE 50 MG TAB PO SCH ×2 (08:26→11:17)
[2022-01-09] MEDS: LANSOPRAZOLE 30 MG SOLTAB PO SCH (08:27)
[2022-01-09] MEDS: SENNOSIDES 8.8 MG/5 ML UDC PO SCH ×2 (08:29→20:49)
[2022-01-09] MEDS: DOCUSATE SODIUM SYRUP 100 MG/10 ML UDC PO SCH ×2 (08:29→20:49)
[2022-01-09] MEDS: FOLIC ACID 1 MG in SYRINGE 9.8 ML IV SCH (08:30)
[2022-01-09] MEDS: MULTI VIT W/MINERALS LIQUID 15 ML UDP GT SCH (08:30)
[2022-01-09] MEDS: cloNIDine HCL 0.1 MG TAB PO SCH (08:30)
[2022-01-09] MEDS: THIAMINE HCL 250 MG in SODIUM CHLORIDE 0.9% 50 ML IV SCH (08:31)
[2022-01-09] MEDS: LORazepam 2 MG/1 ML VIAL IV PRN ×2 (08:50→15:55)
[2022-01-09] MEDS ORDERED: OLANZapine 10 MG/2.1 ML SDV IM STA (09:05)
[2022-01-09] MEDS ORDERED: LORazepam 2 MG/1 ML VIAL IV STA (09:23)
--- NOTE | 2022-01-09 12:42 | Hospitalist Progress Note ---
Date of Service January 09, 2022 Assessment & Plan (1) Encephalopathy: Plan: Ongoing. Waxing/waning. Wernicke's encephalopathy, alcoholic dementia, hospital psychosis, PHYSICIAN RECRUITER lyme disease are all possible culprits. I favor the former 2 etiologies. Unfortunately, if he does have Wernicke's, it appears he has not had any favorable response to aggressive thiamine administration. Lyme Western Blot IgG VERY positive. Western blot IgM negative. I can't rule out Lyme contributing to clinical picture. TSH, B12 levels both wnl. head CT at admission with atrophy/ventriculomegaly but no ICH, CVA, etc. RPR is nonreactive. Ammonia levels wnl. MRI brain 01/03 neg for acute findings. Unfortunately has had a very difficult morning necessitating the use of IV ativan and IM zyprexa. Plan to obtain psych consult this weekend to assist with finding the right combo of meds to treat his behaviors. We will possibly have a better understanding of what his "baseline" mental status/cognitive status is over the next week It is possible that he does not recover Per his sister Bonnie who lives out of town he has had intermittent hallucinations/psychosis over the years. I am uncertain if he has psychotic d/o at baseline, substance induced mood disorder with psychosis (previous drug use, heavy etoh, etc), dementia with hallucinations, etc. (2) Delirium tremens: Plan: Resolved. s/p ICU stay for his DTs - required Precedex drip, IV ativan frequently, etc. s/p high-dose thiamine x 2 days earlier in the stay - now on once daily IV thiamine. Continue to monitor on telemetry. (3) Positive Lyme disease serology: Plan: Western blot results -- IgM negative; IgG very positive with nearly all bands positive. this would suggest early disseminated Lyme disease or later stage Lyme. since IgM was negative we are not dealing with acute/early stage Lyme. day #14 rocephin 2gm IV daily. would Rx with 2 weeks of rocephin (today is day #14) then 2 weeks of doxycycline 100 mg p.o. twice daily, for total 4 weeks of abx - if able to swallow/take PO (4) Hypertension: Plan: Cont IV beta angelita scheduled. Cont IV hydralazine scheduled. Change clonidine PO to patch form. (5) Alcohol dependence: Plan: See above (6) Hepatitis C: Plan: Chronic, previously seen by ID in 2019 and was offered treatment, however declined at that time. Reportedly has received hep A and B vaccines. Had concurrent alcoholic hepatitis but LFTs wnl. Patient with prior h/o drug abuse and had been incarcerated for illicit drugs in the past. Would benefit from HIV testing - need to get consent from family for such. (7) Hypertensive urgency: Plan: early in the hospital stay, likely due to severe agitation from DTs resolved (8) Hypomagnesemia: Plan: replaced resolved (9) PUD (peptic ulcer disease): Plan: cont PPI duodenal bulb ulcer on recent EGD by [facility] (10) Garbled speech: Plan: recurrent some of this is likely from medication side effect can't rule out other etiologies recent MRI brain neg for CVA (11) Sphenoid sinusitis: Plan: as seen on MRI brain rocephin for Lyme should suffice (12) Learning disabilities: Plan: see scanned neuropsych testing done in the early Plan: DVT proph - lovenox Bonnie Morris, pt's sister -- [phone] -- she resides in [place] - updated earlier in the hospital stay as well as today extensive discussion had regarding my concerns about prognosis, nutrition, etc. dispo - very uncertain - SNF? not able to participate in PT/OT evaluations at this time due to altered mental status Admission and Anticipated Discharge Date Admission Date: December 23, 2021 Subjective according to staff the patient had a relatively uneventful night last pm slept most of the night only received 1mg of IV ativan about 0100 this morning upon awakening he took a minimal amount of breakfast with the help from the clinical nursing coordinator afterwards his RN was trying to give him his morning meds he took them in his mouth, then spit them out at the nurse he became combative about this time and very agitated I was contacted that he was very agitated Ordered zyprexa 2.5mg IM x 1 along with an additional 1mg of IV ativan despite this he still needed restraints (soft limb restraints) for safety upon my arrival he was more calm and restrained with arm soft limb restraints he was awake with eyes open and following commands however, I could not understand anything he was verbalizing and, he simply stared ahead at the ceiling; he did this several times this week Review of Systems Review of Systems: Unobtainable due to cognitive status Physical Exam Physical Exam: gen - groggy, confused, difficult to understand his speech; looking up at the ceiling; following some commands but not all mouth - MMM eyes - when asked to track to assess extraocular muscles he really does not track; can't rule out an YULY -- unchanged from yesterday neck - no JVD heart - RRR, s1 s2, no murmur lungs - CTA b/l abd - soft, NT, ND, BS+ ext - no edema, pulses 2+ b/l Results & Data Results & Data ([facility]) Vital Signs (Past 12 Hours) Vital Signs Temp Pulse Pulse Resp BP BP Pulse Ox 01/09/22 11:37 37.0 C 89 18 164/91 H 94 01/09/22 07:15 78 01/09/22 07:13 36.7 C 82 18 161/89 H 95 01/09/22 03:46 36.8 C 87 20 147/82 H 93 Laboratory Results Laboratory Results - last 24 hr 01/09/22 01/09/22 05:30 05:30 WBC 6.76 RBC 4.70 Hgb 14.1 Hct 43.1 MCV 91.7 MCH 30.0 MCHC 32.7 RDW Std Deviation 48.4 H RDW Coeff of Dutch 14.3 Plt Count 307 MPV 12.9 H Sodium 140 Potassium 3.5 Chloride 107 Carbon Dioxide 25 Anion Gap 8 BUN 25 H Creatinine 0.52 L Est Cr Clr Drug Dosing 137.8 Est GFR ( Amer) 127.9 Est GFR (Non-Af Amer) 110.3 BUN/Creatinine Ratio 48.1 H Glucose 92 Calcium 9.5 PG Care Time/CCT Total # of Minutes Spent Total Time Spent with Patient: Total time spent is greater than 50% in coordination of care (as documented) at patient's floor/unit and/or counseling patient: Coding Level of Care Code 98020 Subseq Hosp Care Lvl 3 Diagnoses Delirium tremens F10.231 Encephalopathy G93.40 Positive Lyme disease serology R76.8 Hypertension I10 Alcohol dependence F10.251 Complication of substance-induced condition: with hallucinations Substance use status: alcohol-induced psychotic disorder Hepatitis C B19.20 Hypertensive urgency I16.0 Hypomagnesemia E83.42 PUD (peptic ulcer disease) K27.9 Garbled speech R47.89 Sphenoid sinusitis J32.3 Learning disabilities F81.9 (1) Alcohol dependence Complication of substance-induced condition: with hallucinations Substance use status: alcohol-induced psychotic disorder Qualified Code(s): 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
[2022-01-09] MEDS: cloNIDine HCL 0.1 MG/24 HR TRANSDERM SYS TD SCH (15:47)
[2022-01-09] MEDS: CHECK CLONIDINE PATCH PLACEMENT SCH (15:48)
[2022-01-09] MEDS ORDERED: OLANZapine 10 MG/2.1 ML SDV IM PRN (20:34)
[2022-01-09] MEDS: ENOXAPARIN INJ 40 MG/0.4 ML SYR SQ SCH (20:43)
[2022-01-10] MEDS: METOPROLOL TARTRATE 1 MG/ML VIAL IV SCH ×5 (00:42→23:57)
[2022-01-10] MEDS: CHECK CLONIDINE PATCH PLACEMENT SCH ×4 (00:42→23:58)
[2022-01-10] MEDS: hydrALAZINE HCL 20 MG/ML VIAL IV SCH ×3 (04:14→20:17)
[2022-01-10] MEDS: MULTI VIT W/MINERALS LIQUID 15 ML UDP GT SCH (07:51)
[2022-01-10] MEDS: FOLIC ACID 1 MG in SYRINGE 9.8 ML IV SCH (07:51)
[2022-01-10] MEDS: LANSOPRAZOLE 30 MG SOLTAB PO SCH (07:53)
[2022-01-10] MEDS: SENNOSIDES 8.8 MG/5 ML UDC PO SCH ×2 (07:53→20:20)
[2022-01-10] MEDS: hydrALAZINE HCL 20 MG/ML VIAL IV PRN (07:57)
[2022-01-10] MEDS: cefTRIAXone SODIUM 2,000 MG in DEXTROSE 5% 50 ML IV SCH (08:07)
[2022-01-10] MEDS: THIAMINE HCL 250 MG in SODIUM CHLORIDE 0.9% 50 ML IV SCH (08:07)
[2022-01-10 08:11] LABS: BUN Creatinine Ratio 34.3 (10-20); Calcium 9.7 mg/dl (8.5-10.1); Est GFR (African American) 115.2 ml/min; Est GFR (Non-African American) 99.4 ml/min; Magnesium 1.8 mg/dl (1.7-2.4); Potassium 3.6 mmol/L (3.5-5.1)
[2022-01-10] MEDS: DOCUSATE SODIUM SYRUP 100 MG/10 ML UDC PO SCH ×2 (08:22→20:19)
--- NOTE | 2022-01-10 16:36 | Communication Note ---
Date of Service: January 10, [address] Tony. Patient with history of significant alcohol use, incarcerations and tendency/preference to be live socially isolated. Collateral from psych liason after discussion with his sister-notable for history of learning disabilities, no other known history of primary psychiatric conditions though has had periods of psychosis but likely related to substance use (though difficult for her to know for certain). Has been more agitated in recent days but tends to become overly sedated with olanzapine. Reviewed chart, allergies, last EKG (QTc 499 on 12/23/21). BP and pulse elevated. A/P: Some concern by medical team that his presentation could represent sequelae from chronic alcohol use such as Wernicke's versus prolonged delirium. Given sedation from olanzapine will add risperidone scheduled to help with agitation/possible prolonged delirium and will re-assess tomorrow. Will request repeat EKG to assess QTc tomorrow if he accepts risperidone tonight. -Risperidone 0.5 mg qhs -Review QTc tomorrow if he accepts po risperidone -Full consult tomorrow
[2022-01-10] MEDS: ENOXAPARIN INJ 40 MG/0.4 ML SYR SQ SCH (20:19)
--- NOTE | 2022-01-10 20:25 | Hospitalist Progress Note ---
Date of Service January 10, 2022 Assessment & Plan (1) Encephalopathy: Plan: Ongoing. Wernicke's encephalopathy, alcoholic dementia, hospital psychosis, SAP BASIS lyme disease are all possible culprits. I favor the former 2 etiologies. Unfortunately, if he does have Wernicke's, it appears he has not had any favorable response to aggressive thiamine administration and this could be permanent for him. Lyme Western Blot IgG VERY positive. Western blot IgM negative. I can't rule out Lyme contributing to clinical picture but despite 14-day course of IV rocephin he has had no significant change in mental status. TSH, B12 levels both wnl. head CT at admission with atrophy/ventriculomegaly but no ICH, CVA, etc. RPR is nonreactive. Ammonia levels wnl. MRI brain 01/03 neg for acute findings. We are now approaching day #20 of his hospital stay. We are well past the point of any etoh withdrawal/DTs contributing to current mental status/cognitive status. His current mental status is troubling and prognosis likely very poor. Per his sister Bonnie who lives out of town he has had intermittent hallucinations/psychosis over the years. I am uncertain if he has psychotic d/o at baseline, substance induced mood disorder with psychosis (previous drug use, heavy etoh, etc), dementia with hallucinations, etc. Regardless we need to find a delicate balance between controlling his agitation with medication and preventing untoward excessive sedation, etc. To that end I have asked Dr Angulo from psych to assist with med management. (2) Delirium tremens: Plan: Resolved. s/p ICU stay for his DTs - required Precedex drip, IV ativan frequently, etc. s/p high-dose IV thiamine for numerous days. (3) Positive Lyme disease serology: Plan: Western blot results -- IgM negative; IgG very positive with nearly all bands positive. this would suggest early disseminated Lyme disease or later stage Lyme. since IgM was negative we are not dealing with acute/early stage Lyme. day #15 rocephin 2gm IV daily. stop IV rocephin after today's dose. convert to PO doxy 100mg BID x 14 days starting tomorrow. this would provide a total of 28 days of abx therapy for chronic Lyme. (4) Hypertension: Plan: Cont IV beta angelita scheduled. Cont IV hydralazine scheduled. Cont catapres patch. (5) Alcohol dependence: Plan: See above (6) Hepatitis C: Plan: Chronic, previously seen by ID in 2019 and was offered treatment, however declined at that time. Reportedly has received hep A and B vaccines. Had concurrent alcoholic hepatitis but LFTs wnl. Patient with prior h/o drug abuse and had been incarcerated for illicit drugs in the past. (7) Hypertensive urgency: Plan: early in the hospital stay, likely due to severe agitation from DTs resolved (8) Hypomagnesemia: Plan: replaced resolved (9) PUD (peptic ulcer disease): Plan: cont PPI duodenal bulb ulcer on recent EGD by [facility] (10) Garbled speech: Plan: recurrent some of this is likely from medication side effect can't rule out other etiologies recent MRI brain neg for CVA (11) Sphenoid sinusitis: Plan: as seen on MRI brain rocephin/doxy for Lyme should suffice no residual URI symptoms at this time (12) Learning disabilities: Plan: see scanned neuropsych testing done in the early Plan: DVT proph - lovenox Bonnie Alexandra, pt's sister -- [phone] -- she resides in [place] - updated earlier in the hospital stay as well as 01/09/22 extensive discussion had regarding my concerns about prognosis, nutrition, etc. dispo - very uncertain - SNF long-term most likely VS palliative care if nutrition/mental status continues to be poor not able to participate in PT/OT evaluations at this time due to altered mental status Admission and Anticipated Discharge Date Admission Date: December 23, 2021 Subjective no issues overnight apparently slept - no agitation able to take off soft limb restraints from wrists this am calm, cooperative since that time eating poorly liquid intake poor during the visit his speech was nonsensical telling jokes that didn't make sense, then laughing at the jokes told me that we were in an elevator unable to provide any meaningful history or ROS Review of Systems Review of Systems: Unobtainable due to cognitive status Physical Exam Physical Exam: gen - more awake and alert today; follows commands; but only oriented to self; calm, cooperative during the exam mouth - MM dry, ?thrush on tongue eyes - pt doesn't really track or move his eyeballs; can't rule out an YULY -- unchanged from prior exams neck - no JVD heart - RRR, s1 s2, no murmur lungs - CTA b/l abd - soft, NT, ND, BS+ ext - no edema, pulses 2+ b/l neuro - no facial droop; strength 5/5 x 4 limbs; ?masked facies psych - oriented to person only Results & Data Results & Data ([place]) Vital Signs (Past 12 Hours) Vital Signs Temp Pulse Pulse Resp BP BP Pulse Ox 01/10/22 17:32 74 159/88 H 01/10/22 16:37 36.8 C 74 18 159/88 H 95 01/10/22 15:23 103 H 01/10/22 12:06 86 168/113 H 01/10/22 11:52 36.6 C 86 18 168/113 H 96 Laboratory Results Laboratory Results - last 24 hr 01/10/22 06:40 Sodium 140 Potassium 3.6 Chloride 107 Carbon Dioxide 24 Anion Gap 9 BUN 23 Creatinine 0.67 Est Cr Clr Drug Dosing 107.0 Est GFR ( Amer) 115.2 Est GFR (Non-Af Amer) 99.4 BUN/Creatinine Ratio 34.3 H Glucose 85 Calcium 9.7 Magnesium 1.8 PG Care Time/CCT Total # of Minutes Spent Total Time Spent with Patient: Total time spent is greater than 50% in coordination of care (as documented) at patient's floor/unit and/or counseling patient: Coding Level of Care Code 89917 Subseq Hosp Care Lvl 2 Diagnoses Encephalopathy G93.40 Delirium tremens F10.231 Positive Lyme disease serology R76.8 Hypertension I10 Alcohol dependence F10.251 Complication of substance-induced condition: with hallucinations Substance use status: alcohol-induced psychotic disorder Hepatitis C B19.20 Hypertensive urgency I16.0 Hypomagnesemia E83.42 PUD (peptic ulcer disease) K27.9 Garbled speech R47.89 Sphenoid sinusitis J32.3 Learning disabilities F81.9 (1) Alcohol dependence Complication of substance-induced condition: with hallucinations Substance use status: alcohol-induced psychotic disorder Qualified Code(s): 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
[2022-01-10] MEDS ORDERED: risperiDONE 0.5 MG TABLET PO SCH (21:00)
[2022-01-11] MEDS: hydrALAZINE HCL 20 MG/ML VIAL IV SCH ×3 (03:11→20:54)
[2022-01-11] MEDS: LORazepam 2 MG/1 ML VIAL IV PRN ×3 (03:11→16:40)
[2022-01-11] MEDS: METOPROLOL TARTRATE 1 MG/ML VIAL IV SCH ×4 (05:17→23:15)
[2022-01-11] MEDS: LANSOPRAZOLE 30 MG SOLTAB PO SCH (09:01)
[2022-01-11] MEDS: SENNOSIDES 8.8 MG/5 ML UDC PO SCH ×2 (09:01→20:53)
[2022-01-11] MEDS: FOLIC ACID 1 MG TAB PO SCH (09:01)
[2022-01-11] MEDS: MULTI VIT W/MINERALS LIQUID 15 ML UDP GT SCH (09:01)
[2022-01-11] MEDS: CHECK CLONIDINE PATCH PLACEMENT SCH ×3 (09:01→23:22)
[2022-01-11] MEDS: THIAMINE HCL 100 MG TAB PO SCH ×2 (09:01→20:53)
[2022-01-11] MEDS: DOXYCYCLINE HYCLATE 100 MG CAP PO SCH ×2 (09:01→18:15)
--- NOTE | 2022-01-11 16:15 | Psychiatric Consultation ---
Date of Consultation January 11, 2022 Impression / Recommendations Impression This is a 66 yo old admitted for complicated alcohol withdrawal. Diagnostically consistent with encephalopathy/hypoactive delirium, unclear etiology as he should be outside window for complicated alcohol withdrawal and showing more steady improvement, but superimposed on dementia given head CT findings with age-related and microvascular changes and poor performance on mini-cog testing in 2019. Decreased EOM could certainly be consistent with Wernicke's type picture though he's been receiving thiamine without improvement and doesn't present with typical signs of Korsakoff syndrome. Some concern for possible FTD, vascular, PD or lewy body dementia given speech changes, Parkinsonism features with stiffness and possible visual hallucinations in past(though difficult to differentiate from alcohol withdrawal and resolving encephalopathy). Given his known cognitive impairment as far back as 2019 and years of chronic alcohol use suspect fragile brain more susceptible to encephalopathy with some lingering fl uctuations. Given high potential of prolonged alcohol withdrawal picture ok to continue using ativan prn for agitation though this could be contributing to encephalopathy. Given elevated QTc and potential of LBD there are also risks with antipsychotic use so agree with reserving olanzapine IM for severe behavioral agitation or if ativan is not effective. Will discontinue risperidone given stiffness observed today (he declined last night) and start seroquel 12.5 mg qhs to see if this helps with delirium. Note all antipsychotic medications carry black box warning for increased risk of all-cause mortality in setting of dementia. -1-on-1 given periods of agitation -Start seroquel 12.5 mg qhs and can titrate up to 25mg BID for behavioral management as needed; would check EKG QTc routinely (if concerns on tele monitoring). -Consider melatonin 3mg qhs -Continue medical workup to rule out and treat any underlying causes contributing to potential delirium, avoid or limit use of deliriogenic medications -Continue with delirium prevention measures: raising blinds during the day, closing at night, frequent re-orientation, contact with family/friends, explaining procedures/nursing care measures prior to physical contact, correct any hearing and visual impairments -For behavioral emergency: olanzapine 2.5 mg IM x 1 (DO NOT exceed 10mg per 24 hours, check EKG if IM dose required, NEVER co-administer with IM or IV benzodiazepines, if olanzapine is given wait at least 60 minutes before administration of lorazepam). (1) Encephalopathy: (2) Cognitive impairment: see above Psych History Identifying Data 66 yo man with history of alcohol use disorder, severe, learning disabilities, HTN and history of prior incarcerations and preference to live socially isolated admitted medically for complicated alcohol withdrawal and concern for DT. Psychiatry was consulted for medication recommendations given ongoing confusion and periods of agitation. Chief Complaint "I live here". History of Present Illness Arvind presented to the ED in mid-December via EMS with paranoia, hearing people on his roof and shining lights in his house and with vital sign abnormalities concerning for complicated alcohol withdrawal. He had previously reported alcohol intake of 12 pack of beer daily during ED visit in January 2021. Head CT on admission in December 2021 showed microvascular ischemic disease and age-related changes and enlarged ventricles. Appears he had previous mini-cognitive testing in 05/2019 via 3 item recall 09/15 and clock draw with abnormal numbers and abnormal clock hands. He's continued to have periods of significant sedation, poor appetite, and confusion with agitation even after receiving treatment for acute withdrawal and thiamine/folic acid. Has gotten olanzapine 2.5 mg IM for behavioral emergency and has ativan 1mg IV q4h prn. Today he presents with significant changes in speech making it very difficult to understand him. He's oriented to person and place (hospital) but believes he is in [place], that it's October and cannot state the year (answers with Wednesday). He appears quite stiff and will not move when asked but per 1-on-1 he has been sitting up, will turn his neck then, drank from a Boost shake independently but couldn't hold utensils. He denies any pain. He could not or would not participate with EOM exam. His answers are often out of context to the question asked for example when asking about his home he speaks about boats. Apparently was watching some TV earlier and enjoying this. Collateral from his sister via psych liason note on 01/10/22: "Called pt's sister, Bonnie Morris ([phone]) in order to obtain supplemental psychiatric history. Bonnie stated pt has a history of multiple incarcerations throughout his life due to drug possession. Bonnie is unsure of what drugs he used previously, but knows he smoked marijuana and has been abusing alcohol for most of his life. She denies any history of aggression or assault. She stated he struggled in school and even though he graduated high school, had a very difficult time reading and had a learning disability. She stated that she had a psychiatric evaluation done on him in order to reduce his sentencing in 1993. Copy of this evaluation was scanned to chart. She is unable to recall pt having any history of psychosis/hallucinations other than when she spoke to him over the phone approximately one year ago. She stated he voiced he was having hallucinations and was fearful of where he was staying. She stated he has always been "antisocial" and did not enjoy being around people. She stated she had not spoken to him for several months but spoke to him prior to his hospital admission where they were able to have a lucid conversation. She did state that he has an adult daughter named Shefali who is visiting him regularly in the hospital who lives in [place], but they had an estranged relationship all her life." Allergies Allergy/AdvReac Type Severity Reaction Status Date / Time bee venom protein (honey bee) AdvReac Severe Anaphylaxis Unverified 12/23/21 15:51 Home Medications Medication Instructions Recorded Confirmed Type No Known Home Medications 12/23/21 12/23/21 History Substance Abuse History alcohol, marijuana in past Patient History Medical History Alcohol dependence (06/08/11) Bee sting allergy Cognitive impairment Depression (06/08/11) Hepatitis C Hypertension Marijuana use Surgical History Status post hernia repair Status post knee surgery Family History Father Diabetes Hypertension Mother Breast cancer Denies family history of Ovarian cancer Prostate cancer Myocardial infarction Colorectal cancer Social History Smoking Status: Current some day smoker Hx Alcohol Use: Yes Alcohol type: beer and hard liquor Hx Substance Use: Yes Preferred Language: Cypriot Communication Ability: Unable Visual Impairment: No Limitations Hearing Ability: Normal marital status: Single Current Living Situation: Alone current occupational status: retired Feels Safe at Home: No Childhood Exposure to Second-Hand Smoke: No Dental Care, Regularly: Yes Physical Activity Frequency: Does not Exercise Seatbelt Use: always Assistive Devices: None Physical Exam Psychiatric: Orientation: alert and oriented to person; + not oriented to place and + not oriented to time Apperance: + disheveled Eye Contact: + poor eye contact Motor Behavior: + EPS (appears very stiff, possible Parkinonism, denies pain ); n tremor Speech: + abnormal rate/rhythm/volume of speech (dysarthria-garbled, soft) Affect: + constricted affect Thought Process: + looseness of associations and + incoherent thought process Thought Content: reality based without delusions Cognition: remote memory grossly intact (can recall his sister's name ); + recent memory not intact, + attention not intact and + language not intact Insight: + limited insight Judgement: + impaired judgement Vital Signs (Past 24 Hours): Last Vital Signs Temp 36.9 C 01/11/22 11:51 Pulse 89 01/11/22 13:17 Resp 17 01/11/22 11:51 BP 160/95 H 01/11/22 13:17 Pulse Ox 95 01/11/22 11:51 Review of Systems Unobtainable due to cognitive status Results & Data (PSY) Diagnostic Findings EKG 12/23/21 QTc 499 ms Medications Administered Clonidine HCl (Clonidine Hcl 0.1 Mg/24 Hr Transderm Sys) 1 patch TD Q7D [facility] Stop: 02/08/22 15:59 Last Admin: 01/09/22 15:47 Dose: 1 patch Documented by: [id number] Doxycycline Hyclate (Doxycycline Hyclate 100 Mg Cap) 100 mg PO Q12H [facility] Stop: 01/21/22 05:59 Last Admin: 01/11/22 09:01 Dose: 100 mg Documented by: [id number] Enoxaparin Sodium (Enoxaparin Inj 40 Mg/0.4 Ml Syr) 40 mg SQ QPM [facility] Stop: 01/22/22 20:59 Last Admin: 01/10/22 20:19 Dose: 40 mg Documented by: [id number] Admin: 01/09/22 20:43 Dose: 40 mg Documented by: [id number] Admin: 01/08/22 20:33 Dose: 40 mg Documented by: [id number] Admin: 01/07/22 19:55 Dose: 40 mg Documented by: [id number] Admin: 01/06/22 20:19 Dose: 40 mg Documented by: [id number] Admin: 01/05/22 20:56 Dose: 40 mg Documented by: [id number] Admin: 01/04/22 20:13 Dose: 40 mg Documented by: [id number] Admin: 01/03/22 20:14 Dose: 40 mg Documented by: [id number] Admin: 01/02/22 21:11 Dose: 40 mg Documented by: [id number] Admin: 01/01/22 20:06 Dose: 40 mg Documented by: [id number] Admin: 12/31/21 22:19 Dose: 40 mg Documented by: [id number] Admin: 12/30/21 20:27 Dose: 40 mg Documented by: [id number] Admin: 12/29/21 19:50 Dose: 40 mg Documented by: [id number] Admin: 12/28/21 19:40 Dose: 40 mg Documented by: [id number] Admin: 12/27/21 20:06 Dose: 40 mg Documented by: [id number] Admin: 12/26/21 19:40 Dose: 40 mg Documented by: [id number] Admin: 12/25/21 22:03 Dose: 40 mg Documented by: [id number] Admin: 12/24/21 19:35 Dose: 40 mg Documented by: [id number] Admin: 12/23/21 22:16 Dose: 40 mg Documented by: [id number] Folic Acid (Folic Acid 1 Mg Tab) 1 mg PO QAM [facility]OR Stop: 02/10/22 08:59 Last Admin: 01/11/22 09:01 Dose: 1 mg Documented by: [id number] Hydralazine HCl (Hydralazine Hcl 20 Mg/Ml Vial) 10 mg IV Q6 PRN PRN Reason: SBP>160, DBP>100 Stop: 01/24/22 11:59 Last Admin: 01/10/22 07:57 Dose: 10 mg Documented by: [id number] Admin: 01/08/22 06:26 Dose: 10 mg Documented by: [id number] Admin: 01/07/22 15:51 Dose: 10 mg Documented by: [id number] Admin: 01/07/22 01:35 Dose: 10 mg Documented by: [id number] Admin: 01/04/22 08:22 Dose: 10 mg Documented by: [id number] Admin: 01/04/22 01:18 Dose: 10 mg Documented by: [id number] Admin: 01/03/22 21:17 Dose: 10 mg Documented by: [id number] Admin: 01/03/22 12:06 Dose: 10 mg Documented by: [id number] Admin: 01/03/22 01:32 Dose: 10 mg Documented by: [id number] Admin: 01/01/22 15:43 Dose: 10 mg Documented by: [id number] Admin: 01/01/22 05:49 Dose: 10 mg Documented by: [id number] Admin: 12/31/21 20:08 Dose: 10 mg Documented by: [id number] Admin: 12/30/21 20:54 Dose: 10 mg Documented by: [id number] Admin: 12/30/21 13:50 Dose: 10 mg Documented by: [id number] Admin: 12/30/21 07:53 Dose: 10 mg Documented by: [id number] Admin: 12/29/21 16:40 Dose: 10 mg Documented by: [id number] Admin: 12/28/21 15:33 Dose: 10 mg Documented by: [id number] Admin: 12/26/21 09:34 Dose: 10 mg Documented by: [id number] Admin: 12/25/21 15:21 Dose: 10 mg Documented by: [id number] Hydralazine HCl (Hydralazine Hcl 25 Mg Tab) 25 mg PO Q6H [facility] Stop: 02/04/22 07:59 Last Admin: 01/09/22 21:14 Dose: Not Given Documented by: [id number] Admin: 01/09/22 15:44 Dose: Not Given Documented by: [id number] Admin: 01/09/22 08:27 Dose: 25 mg Documented by: [id number] Admin: 01/09/22 04:52 Dose: Not Given Documented by: [id number] Admin: 01/08/22 20:32 Dose: 25 mg Documented by: [id number] Admin: 01/08/22 14:34 Dose: Not Given Documented by: [id number] Admin: 01/08/22 09:18 Dose: 25 mg Documented by: [id number] Admin: 01/08/22 01:04 Dose: Not Given Documented by: [id number] Admin: 01/07/22 20:06 Dose: Not Given Documented by: [id number] Admin: 01/07/22 13:54 Dose: 25 mg Documented by: [id number] Admin: 01/07/22 09:38 Dose: Not Given Documented by: [id number] Admin: 01/07/22 01:32 Dose: Not Given Documented by: [id number] Admin: 01/06/22 20:19 Dose: Not Given Documented by: [id number] Admin: 01/06/22 18:26 Dose: Not Given Documented by: [id number] Admin: 01/06/22 09:08 Dose: 25 mg Documented by: [id number] Admin: 01/06/22 02:03 Dose: 25 mg Documented by: [id number] Admin: 01/05/22 20:57 Dose: 25 mg Documented by: [id number] Admin: 01/05/22 14:13 Dose: 25 mg Documented by: [id number] Admin: 01/05/22 08:42 Dose: 25 mg Documented by: [id number] Hydralazine HCl (Hydralazine Hcl 20 Mg/Ml Vial) 10 mg IV Q8H [facility] Stop: 02/09/22 11:59 Last Admin: 01/11/22 13:14 Dose: 10 mg Documented by: [id number] Admin: 01/11/22 03:11 Dose: 10 mg Documented by: [id number] Admin: 01/10/22 20:17 Dose: 10 mg Documented by: [id number] Admin: 01/10/22 12:06 Dose: 10 mg Documented by: [id number] Lansoprazole (Lansoprazole 30 Mg Soltab) 30 mg PO QAM [facility] Stop: 02/02/22 09:29 Last Admin: 01/11/22 09:01 Dose: 30 mg Documented by: [id number] Admin: 01/10/22 07:53 Dose: 30 mg Documented by: [id number] Admin: 01/09/22 08:27 Dose: 30 mg Documented by: [id number] Admin: 01/08/22 09:19 Dose: 30 mg Documented by: [id number] Admin: 01/07/22 09:38 Dose: Not Given Documented by: [id number] Admin: 01/06/22 08:59 Dose: 30 mg Documented by: [id number] Admin: 01/05/22 07:44 Dose: 30 mg Documented by: [id number] Admin: 01/04/22 08:21 Dose: 30 mg Documented by: [id number] Admin: 01/03/22 10:43 Dose: 30 mg Documented by: [id number] Lorazepam (Lorazepam 2 Mg/1 Ml Vial) 1 mg IV Q4H PRN PRN Reason: Agitation Stop: 02/04/22 17:49 Last Admin: 01/11/22 09:50 Dose: 1 mg Documented by: [id number] Admin: 01/11/22 03:11 Dose: 1 mg Documented by: [id number] Admin: 01/09/22 15:55 Dose: 1 mg Documented by: [id number] Admin: 01/09/22 08:50 Dose: 1 mg Documented by: [id number] Admin: 01/08/22 01:32 Dose: 1 mg Documented by: [id number] Admin: 01/07/22 19:37 Dose: 1 mg Documented by: [id number] Admin: 01/07/22 15:51 Dose: 1 mg Documented by: [id number] Admin: 01/07/22 02:43 Dose: 1 mg Documented by: [id number] Admin: 01/06/22 22:30 Dose: 1 mg Documented by: [id number] Metoprolol Tartrate (Metoprolol Tartrate 50 Mg Tab) 50 mg PO BID [facility] Stop: 02/04/22 08:59 Last Admin: 01/09/22 11:17 Dose: Not Given Documented by: [id number] Admin: 01/08/22 20:33 Dose: 50 mg Documented by: [id number] Admin: 01/08/22 09:18 Dose: 50 mg Documented by: [id number] Admin: 01/07/22 21:16 Dose: Not Given Documented by: [id number] Admin: 01/07/22 09:38 Dose: Not Given Documented by: [id number] Admin: 01/06/22 20:20 Dose: Not Given Documented by: [id number] Admin: 01/06/22 09:07 Dose: 50 mg Documented by: [id number] Admin: 01/05/22 20:57 Dose: 50 mg Documented by: [id number] Admin: 01/05/22 08:43 Dose: 50 mg Documented by: [id number] Metoprolol Tartrate (Metoprolol Tartrate 1 Mg/Ml Vial) 7.5 mg IV Q6 [facility]; Protocol Stop: 02/10/22 11:59 Last Admin: 01/11/22 13:17 Dose: 7.5 mg Documented by: [id number] Miscellaneous (Remove Clonidine Patch) 1 ea N/A CQWK [facility] Stop: 02/08/22 09:59 Last Admin: 01/09/22 10:12 Dose: 1 ea Documented by: [id number] Miscellaneous (Check Clonidine Patch Placement) 1 ea N/A QS [facility] Stop: 02/08/22 15:59 Last Admin: 01/11/22 14:55 Dose: 1 ea Documented by: [id number] Admin: 01/11/22 09:01 Dose: 1 ea Documented by: [id number] Admin: 01/10/22 23:58 Dose: 1 ea Documented by: [id number] Admin: 01/10/22 14:28 Dose: 1 ea Documented by: [id number] Admin: 01/10/22 08:22 Dose: 1 ea Documented by: [id number] Admin: 01/10/22 00:42 Dose: 1 ea Documented by: [id number] Admin: 01/09/22 15:48 Dose: 1 ea Documented by: [id number] Multivitamins/Minerals (Multi Vit W/Minerals Liquid 15 Ml Udp) 15 ml GT QAM [facility] Stop: 02/01/22 08:59 Last Admin: 01/11/22 09:01 Dose: 15 ml Documented by: [id number] Admin: 01/10/22 07:51 Dose: 15 ml Documented by: [id number] Admin: 01/09/22 08:30 Dose: Not Given Documented by: [id number] Admin: 01/08/22 09:18 Dose: 15 ml Documented by: [id number] Admin: 01/07/22 09:38 Dose: Not Given Documented by: [id number] Admin: 01/06/22 09:08 Dose: 15 ml Documented by: [id number] Admin: 01/05/22 07:45 Dose: 15 ml Documented by: [id number] Admin: 01/04/22 08:22 Dose: 15 ml Documented by: [id number] Admin: 01/03/22 07:59 Dose: 15 ml Documented by: [id number] Admin: 01/02/22 08:06 Dose: 15 ml Documented by: [id number] Sennosides (Sennosides 8.8 Mg/5 Ml Udc) 8.8 mg PO BID [facility] Stop: 02/01/22 10:29 Last Admin: 01/11/22 09:01 Dose: 8.8 mg Documented by: [id number] Admin: 01/10/22 20:20 Dose: Not Given Documented by: [id number] Admin: 01/10/22 07:53 Dose: 8.8 mg Documented by: [id number] Admin: 01/09/22 20:49 Dose: 8.8 mg Documented by: [id number] Admin: 01/09/22 08:29 Dose: Not Given Documented by: [id number] Admin: 01/08/22 20:39 Dose: Not Given Documented by: [id number] Admin: 01/08/22 09:19 Dose: 8.8 mg Documented by: [id number] Admin: 01/07/22 19:55 Dose: 8.8 mg Documented by: [id number] Admin: 01/07/22 09:38 Dose: Not Given Documented by: [id number] Admin: 01/06/22 20:20 Dose: Not Given Documented by: [id number] Admin: 01/06/22 09:09 Dose: Not Given Documented by: [id number] Admin: 01/05/22 20:58 Dose: Not Given Documented by: [id number] Admin: 01/05/22 07:45 Dose: Not Given Documented by: [id number] Admin: 01/04/22 20:14 Dose: Not Given Documented by: [id number] Admin: 01/04/22 08:22 Dose: Not Given Documented by: [id number] Admin: 01/03/22 20:14 Dose: 8.8 mg Documented by: [id number] Admin: 01/03/22 07:59 Dose: 8.8 mg Documented by: [id number] Admin: 01/02/22 21:11 Dose: 8.8 mg Documented by: [id number] Admin: 01/02/22 11:40 Dose: 8.8 mg Documented by: [id number] Thiamine HCl (Thiamine Hcl 100 Mg Tab) 200 mg PO BID [facility] Stop: 02/10/22 08:59 Last Admin: 01/11/22 09:01 Dose: 200 mg Documented by: [id number] Coding Level of Care Code 83127 Inpt Consult Level 3 Diagnoses Encephalopathy G93.40 Cognitive impairment R41.89
--- NOTE | 2022-01-11 20:45 | Hospitalist Progress Note ---
Date of Service January 11, 2022 Assessment & Plan (1) Encephalopathy: Plan: Ongoing. Wernicke's encephalopathy, alcoholic dementia, hospital psychosis, HEALTHCARE TECHNICIAN lyme disease are all possible culprits. I favor the former 2 etiologies. Unfortunately, if he does have Wernicke's, it appears he has not had any favorable response to aggressive thiamine administration and this could be permanent for him. Change IV thiamine to PO thiamine. Lyme Western Blot IgG VERY positive. Western blot IgM negative. I can't rule out Lyme contributing to clinical picture but despite 14-day course of IV rocephin he has had no significant change in mental status. TSH, B12 levels both wnl. head CT at admission with atrophy/ventriculomegaly but no ICH, CVA, etc. RPR is nonreactive. Ammonia levels wnl. MRI brain 01/03 neg for acute findings. We are now approaching day #21 of his hospital stay. We are well past the point of any etoh withdrawal/DTs contributing to current mental status/cognitive status. His current mental status is troubling and prognosis likely very poor. Doubt Lyme is contributing to current clinical picture. Per his sister Bonnie who lives out of town he has had intermittent hallucinations/psychosis over the years. I am uncertain if he has psychotic d/o at baseline, substance induced mood disorder with psychosis (previous drug use, heavy etoh, etc), dementia with hallucinations, etc. Regardless we need to find a delicate balance between controlling his agitation with medication and preventing untoward excessive sedation, etc. To that end I have asked Dr Angulo from psych to assist with med management. We discussed his care today -- will try seroquel low-dose at HS tonight and zyrprexa IM prn for emergency agitation control. No need for restraints today - calm, cooperative fortunately. ?lewy-body dementia? masked facies, low-pitched voice, hallucinations (2) Delirium tremens: Plan: Resolved. s/p ICU stay for his DTs - required Precedex drip, IV ativan frequently, etc. s/p high-dose IV thiamine for numerous days. (3) Positive Lyme disease serology: Plan: Western blot results -- IgM negative; IgG very positive with nearly all bands positive. this would suggest early disseminated Lyme disease or later stage Lyme. since IgM was negative we are not dealing with acute/early stage Lyme. s/p 15 days of IV rocephin --- convert to PO doxy 100mg BID x 14 days today this would provide a total of 28 days of abx therapy for ?? chronic Lyme. (4) Hypertension: Plan: Cont IV beta angelita scheduled. Cont IV hydralazine scheduled. Cont catapres patch. Until PO intake is very reliable keep the regimen as is but will increase lopr essor to 7.5mg IV q6h. (5) Alcohol dependence: Plan: See above (6) Hepatitis C: Plan: Chronic, previously seen by ID in 2019 and was offered treatment, however declined at that time. Reportedly has received hep A and B vaccines. Had concurrent alcoholic hepatitis but LFTs wnl. Patient with prior h/o drug abuse and had been incarcerated for illicit drugs in the past. (7) Hypertensive urgency: Plan: early in the hospital stay, likely due to severe agitation from DTs resolved (8) Hypomagnesemia: Plan: replaced resolved (9) PUD (peptic ulcer disease): Plan: cont PPI duodenal bulb ulcer on recent EGD by [facility] (10) Kedar speech: Plan: recurrent some of this is likely from medication side effect can't rule out other etiologies recent MRI brain neg for CVA (11) Sphenoid sinusitis: Plan: as seen on MRI brain rocephin/doxy for Lyme should suffice no residual URI symptoms at this time (12) Learning disabilities: Plan: see scanned neuropsych testing done in the early Plan: DVT proph - lovenox Bonnie Alexandra, pt's sister -- [phone] -- she resides in [place] - updated earlier in the hospital stay as well as 01/09/22 extensive discussion had regarding my concerns about prognosis, nutrition, etc. Shefali Cavazos - daughter - [phone] extensively updated by phone today she is interested in being her father's POA as she is local in [place] and is next of kin her Aunt Bonnie (pt's sister) is ok with Shefali being POA discussed how to get POA paperwork; we can have service excellence help with this as well Shefali understands that what we currently see with her father may be permanent dispo - very uncertain - SNF long-term most likely VS palliative care if nutrition/mental status continues to be poor not able to participate in PT/OT evaluations at this time due to altered mental status Admission and Anticipated Discharge Date Admission Date: December 23, 2021 Subjective no events overnight unfortunately he would not take the risperdal at HS last night during the visit he was awake, alert, but very confused - jumping from topic to topic at one point he said "let's go out for ice cream some time" then would jump to another topic he was eating - PROLONGED mastication noted - 30 seconds to chew a bite of mashed potatoes speech at times hard to understand tele wnl overnight Review of Systems Review of Systems: Unobtainable due to cognitive status Physical Exam Physical Exam: gen - more awake and alert today; follows commands; but only oriented to self; calm, cooperative during the exam; confabulates and tells unrelated jokes, etc mouth - MM dry; prolonged mastication eyes - pt doesn't really track or move his eyeballs; can't rule out an YULY -- unchanged from prior exams neck - no JVD heart - RRR, s1 s2, no murmur lungs - CTA b/l abd - soft, NT, ND, BS+ ext - no edema, pulses 2+ b/l neuro - ?masked facies psych - oriented to person only; thinks it is 1994 at one point it appeared he was responding to internal stimuli - was talking to someone NOT in the room, appeared to be "listening" to a voice and responding to that voice Results & Data Results & Data ([facility]) Vital Signs (Past 12 Hours) Vital Signs Temp Pulse Pulse Resp BP BP BP 01/11/22 20:32 37.1 C 84 18 127/80 01/11/22 18:16 76 160/95 H 01/11/22 15:25 36.5 C 103 H 20 123/71 01/11/22 15:00 76 01/11/22 13:17 89 160/95 H 01/11/22 11:51 36.9 C 89 17 160/95 H Pulse Ox 01/11/22 20:32 96 01/11/22 18:16 01/11/22 15:25 95 01/11/22 15:00 01/11/22 13:17 01/11/22 11:51 95 PG Care Time/CCT Total # of Minutes Spent Total Time Spent with Patient: Total time spent is greater than 50% in coordination of care (as documented) at patient's floor/unit and/or counseling patient: Coding Level of Care Code 36634 Subseq Hosp Care Lvl 3 Diagnoses Encephalopathy G93.40 Delirium tremens F10.231 Positive Lyme disease serology R76.8 Hypertension I10 Alcohol dependence F10.251 Complication of substance-induced condition: with hallucinations Substance use status: alcohol-induced psychotic disorder Hepatitis C B19.20 Hypertensive urgency I16.0 Hypomagnesemia E83.42 PUD (peptic ulcer disease) K27.9 Garbled speech R47.89 Sphenoid sinusitis J32.3 Learning disabilities F81.9 (1) Alcohol dependence Complication of substance-induced condition: with hallucinations Substance use status: alcohol-induced psychotic disorder Qualified Code(s): 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
[2022-01-11] MEDS: ENOXAPARIN INJ 40 MG/0.4 ML SYR SQ SCH (20:47)
[2022-01-11] MEDS ORDERED: QUEtiapine FUMARATE 25 MG TABLET PO SCH (21:00)
[2022-01-12] MEDS: hydrALAZINE HCL 20 MG/ML VIAL IV SCH ×3 (03:15→20:14)
[2022-01-12] MEDS: OLANZapine 10 MG/2.1 ML SDV IM PRN (04:23)
[2022-01-12] MEDS: DOXYCYCLINE HYCLATE 100 MG CAP PO SCH ×2 (05:12→17:39)
[2022-01-12] MEDS: METOPROLOL TARTRATE 1 MG/ML VIAL IV SCH ×4 (05:15→23:17)
[2022-01-12] MEDS: LORazepam 2 MG/1 ML VIAL IV PRN ×2 (05:16→19:04)
[2022-01-12 07:22] LABS: BUN Creatinine Ratio 42.4 (10-20); Calcium 9.8 mg/dl (8.5-10.1); Creatinine Clr Calc Pharmacy 108.6 ml/min; Potassium 3.3 mmol/L (3.5-5.1)
[2022-01-12] MEDS: CHECK CLONIDINE PATCH PLACEMENT SCH ×3 (09:31→23:14)
[2022-01-12] MEDS: THIAMINE HCL 100 MG TAB PO SCH ×2 (09:32→20:15)
[2022-01-12] MEDS: MULTI VIT W/MINERALS LIQUID 15 ML UDP GT SCH (09:33)
[2022-01-12] MEDS: SENNOSIDES 8.8 MG/5 ML UDC PO SCH ×2 (09:33→20:15)
[2022-01-12] MEDS: LANSOPRAZOLE 30 MG SOLTAB PO SCH (09:34)
[2022-01-12] MEDS: FOLIC ACID 1 MG TAB PO SCH (09:34)
[2022-01-12] MEDS: POTASSIUM CHLORIDE PWD 20 MEQ PACK PO SCH ×2 (11:28→20:14)
--- NOTE | 2022-01-12 17:04 | Psychiatric Progress Note ---
Date of Service January 12, 2022 Impression / Recommendations Impression This is a 66 yo old admitted for complicated alcohol withdrawal. Diagnostically consistent with encephalopathy/hypoactive delirium, unclear etiology as he should be outside window for complicated alcohol withdrawal and showing more steady improvement, but superimposed on dementia given head CT findings with age-related and microvascular changes and poor performance on mini-cog testing in 2019. Decreased EOM could certainly be consistent with Wernicke's type picture though he's been receiving thiamine without improvement and doesn't present with typical signs of Korsakoff syndrome. Some concern for possible FTD, vascular, PD or lewy body dementia given speech changes, Parkinsonism features with stiffness and possible visual hallucinations in past(though difficult to differentiate from alcohol withdrawal and resolving encephalopathy). Given his known cognitive impairment as far back as 2019 and years of chronic alcohol use suspect fragile brain more susceptible to encephalopathy with some lingering fluctuations. Given high potential of prolonged alcohol withdrawal picture ok to continue using ativan prn for agitation though this could be contributing to encephalopathy. Given elevated QTc and potential of LBD there are also risks with antipsychotic use so agree with reserving olanzapine IM for severe behavioral agitation or if ativan is not effective. Will discontinue risperidone given stiffness observed today (he declined last night) and start seroquel 12.5 mg qhs to see if this helps with delirium. Note all antipsychotic medications carry black box warning for increased risk of all-cause mortality in setting of dementia. 01/12/22: Slight improvement in engagement today, still required IM medications in early AM after pulling out IV and telemetry -1-on-1 given periods of agitation -Increase seroquel to 25 mg qhs and can titrate up to 25mg BID for behavioral management as needed; would check EKG QTc routinely (if concerns on tele monitoring). -Consider melatonin 3mg qhs -Continue medical workup to rule out and treat any underlying causes contributing to potential delirium, avoid or limit use of deliriogenic medications -Continue with delirium prevention measures: raising blinds during the day, closing at night, frequent re-orientation, contact with family/friends, explaining procedures/nursing care measures prior to physical contact, correct any hearing and visual impairments -For behavioral emergency: olanzapine 2.5 mg IM x 1 (DO NOT exceed 10mg per 24 hours, check EKG if IM dose required, NEVER co-administer with IM or IV benzodiazepines, if olanzapine is given wait at least 60 minutes before administration of lorazepam). (1) Encephalopathy: (2) Cognitive impairment: see above Interval History Identifying Information 66 yo man with history of alcohol use disorder, severe, learning disabilities, HTN and history of prior incarcerations and preference to live socially isolated admitted medically for complicated alcohol withdrawal and concern for DT. Psychiatry was consulted for medication recommendations given ongoing confusion and periods of agitation. Chief Complaint "I was just resting because I'm tired". Review of Systems Notes Intermittent sleep, decreased appetite with limited po intake. Subjective Subjective Patient was seen & assessed and interval progress reviewed. Took po seroquel last night, required IM olanzapine at ~4:30am and then received IV ativan about 50 minutes later. Today is oriented to city, hospital (when given choices), but doesn't know month and thinks the year is 2039. At times reality-based in answ ering some questions and easier to understand. More neck ROM today, still struggles with EOM exam. Denies any muscle stiffness. No side effects from seroquel nor olanzapine noted. Still some paranoia/bizarre statements at times- tells me his IV is from "[facility]" and goes on to explain he lived there is 2012. Still with decreased appetite. Procedures Performed Operation Date: 01/01/22 17:00 Actual Procedures p Esophagogastroduodenoscopy - Jim Olivier MD Physical Exam Psychiatric Orientation: alert, oriented to person, oriented to place and cooperative; + not oriented to time Apperance: appropriately dressed Eye Contact: + poor eye contact Motor Behavior: + EPS (less stiff appearing today, more neck ROM, no evidence dystonia); n tremor Speech: + abnormal rate/rhythm/volume of speech (dysarthria-less so today slightly better articulation, soft) Affect: + constricted affect Mood: no depressed mood and no anxious mood Thought Process: + looseness of associations Thought Content: + paranoid Cognition: remote memory grossly intact (can recall his sister's name ); + recent memory not intact, + attention not intact and + language not intact Insight: + limited insight Judgement: + impaired judgement Vital Signs (Past 24 Hours) Last Vital Signs Temp 36.4 C L 01/12/22 16:09 Pulse 80 01/12/22 16:09 Resp 20 01/12/22 16:09 BP 145/89 H 01/12/22 16:09 Pulse Ox 94 01/12/22 11:19 Results & Data ([facility]) Laboratory Results Laboratory Results - last 24 hr 01/12/22 06:16 Sodium 143 Potassium 3.3 L Chloride 110 H Carbon Dioxide 24 Anion Gap 9 BUN 28 H Creatinine 0.66 Est Cr Clr Drug Dosing 108.6 Est GFR ( Amer) 116.0 Est GFR (Non-Af Amer) 100.0 BUN/Creatinine Ratio 42.4 H Glucose 103 H Calcium 9.8 Current Inpatient Medications Current Inpatient Medications: Current Inpatient Medications Clonidine HCl (Clonidine Hcl 0.1 Mg/24 Hr Transderm Sys) 1 patch TD Q7D [facility] Stop: 02/08/22 15:59 Last Admin: 01/09/22 15:47 Dose: 1 patch Documented by: Doxycycline Hyclate (Doxycycline Hyclate 100 Mg Cap) 100 mg PO Q12H [facility] Stop: 01/21/22 05:59 Last Admin: 01/12/22 05:12 Dose: 100 mg Documented by: Enoxaparin Sodium (Enoxaparin Inj 40 Mg/0.4 Ml Syr) 40 mg SQ QPM [facility] Stop: 01/22/22 20:59 Last Admin: 01/11/22 20:47 Dose: 40 mg Documented by: Folic Acid (Folic Acid 1 Mg Tab) 1 mg PO QAM [facility] Stop: 02/10/22 08:59 Last Admin: 01/12/22 09:34 Dose: 1 mg Documented by: Hydralazine HCl (Hydralazine Hcl 20 Mg/Ml Vial) 10 mg IV Q6 PRN PRN Reason: SBP>160, DBP>100 Stop: 01/24/22 11:59 Last Admin: 01/10/22 07:57 Dose: 10 mg Documented by: Hydralazine HCl (Hydralazine Hcl 25 Mg Tab) 25 mg PO Q6H [facility] Stop: 02/04/22 07:59 Last Admin: 01/09/22 21:14 Dose: Not Given Documented by: Hydralazine HCl (Hydralazine Hcl 20 Mg/Ml Vial) 10 mg IV Q8H [facility] Stop: 02/09/22 11:59 Last Admin: 01/12/22 11:28 Dose: 10 mg Documented by: Lansoprazole (Lansoprazole 30 Mg Soltab) 30 mg PO QAM [facility] Stop: 02/02/22 09:29 Last Admin: 01/12/22 09:34 Dose: 30 mg Documented by: Lorazepam (Lorazepam 2 Mg/1 Ml Vial) 1 mg IV Q4H PRN PRN Reason: Agitation Stop: 02/04/22 17:49 Last Admin: 01/12/22 05:16 Dose: 1 mg Documented by: Metoprolol Tartrate (Metoprolol Tartrate 50 Mg Tab) 50 mg PO BID [facility] Stop: 02/04/22 08:59 Last Admin: 01/09/22 11:17 Dose: Not Given Documented by: Metoprolol Tartrate (Metoprolol Tartrate 1 Mg/Ml Vial) 7.5 mg IV Q6 [facility]; Protocol Stop: 02/10/22 11:59 Last Admin: 01/12/22 11:36 Dose: 7.5 mg Documented by: Miscellaneous (Remove Clonidine Patch) 1 ea N/A CQWK [facility] Stop: 02/08/22 09:59 Last Admin: 01/09/22 10:12 Dose: 1 ea Documented by: Miscellaneous (Check Clonidine Patch Placement) 1 ea N/A QS [facility] Stop: 02/08/22 15:59 Last Admin: 01/12/22 09:31 Dose: 1 ea Documented by: Multivitamins/Minerals (Multi Vit W/Minerals Liquid 15 Ml Udp) 15 ml GT QAM [facility] Stop: 02/01/22 08:59 Last Admin: 01/12/22 09:33 Dose: 15 ml Documented by: Olanzapine (Olanzapine 10 Mg/2.1 Ml Sdv) 2.5 mg IM HS PRN PRN Reason: Agitation/confusion Stop: 02/08/22 20:59 Last Admin: 01/12/22 04:23 Dose: 2.5 mg Documented by: Ondansetron HCl (Ondansetron Inj 2 Mg/Ml 2 Ml Vial) 4 mg IV Q6H PRN PRN Reason: Nausea Stop: 01/22/22 20:22 Polyethylene Glycol (Polyethylene (Miralax) 17 Gm Pack) 17 gm PO DAILY PRN PRN Reason: CONSTIPATION Stop: 02/01/22 10:05 Potassium Chloride (Potassium Chloride Pwd 20 Meq Pack) 20 meq PO BID [facility] Stop: 02/11/22 10:14 Last Admin: 01/12/22 11:28 Dose: 20 meq Documented by: Quetiapine Fumarate (Quetiapine Fumarate 25 Mg Tablet) 12.5 mg PO HS [facility] Stop: 02/10/22 20:59 Last Admin: 01/11/22 20:51 Dose: 12.5 mg Documented by: Sennosides (Sennosides 8.8 Mg/5 Ml Udc) 8.8 mg PO BID [facility] Stop: 02/01/22 10:29 Last Admin: 01/12/22 09:33 Dose: 8.8 mg Documented by: Thiamine HCl (Thiamine Hcl 100 Mg Tab) 200 mg PO BID [facility] Stop: 02/10/22 08:59 Last Admin: 01/12/22 09:32 Dose: 200 mg Documented by:
[2022-01-12] MEDS: ENOXAPARIN INJ 40 MG/0.4 ML SYR SQ SCH (20:14)
[2022-01-12] MEDS: QUEtiapine FUMARATE 25 MG TABLET PO SCH (20:16)
--- NOTE | 2022-01-13 00:09 | Hospitalist Progress Note ---
Date of Service January 13, 2022 Assessment & Plan (1) Encephalopathy: Plan: Ongoing. 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 I favor the former 2 etiologies. Unfortunately, if he does have Wernicke's, it appears he has not had any favorable response to aggressive thiamine administration and this could be permanent for him. Changed IV thiamine to PO thiamine. Lyme Western Blot IgG VERY positive. Western blot IgM negative. I can't rule out Lyme contributing to clinical picture but despite 14-day course of IV rocephin he has had no significant change in mental status. TSH, B12 levels both wnl. head CT at admission with atrophy/ventriculomegaly but no ICH, CVA, etc. RPR is nonreactive. Ammonia levels wnl. MRI brain 01/03 neg for acute findings. We are now approaching day #22 of his hospital stay. We are well past the point of any etoh withdrawal/DTs contributing to current mental status/cognitive status. His current mental status is troubling and prognosis likely very poor. Doubt Lyme is contributing to current clinical picture. Per his sister Bonnie who lives out of town he has had intermittent hallucinations/psychosis over the years. I am uncertain if he has psychotic d/o at baseline, substance induced mood disorder with psychosis (previous drug use, heavy etoh, etc), alcoholic dementia with hallucinations (or Lewy-Body dementia) etc. Appreciate Dr Angulo's assistance with med management. She has increased seroquel to 25mg HS tonight. IM zyprexa 2.5mg prn, max 10mg in 24 hours. AVOID concomitant use of zyprexa IM and IV ativan (respiratory depression). (2) Delirium tremens: Plan: Resolved. s/p ICU stay for his DTs - required Precedex drip, IV ativan frequently, etc. s/p high-dose IV thiamine for numerous days. (3) Positive Lyme disease serology: Plan: Western blot results -- IgM negative; IgG very positive with nearly all bands positive. this would suggest early disseminated Lyme disease or later stage Lyme. since IgM was negative we are not dealing with acute/early stage Lyme. s/p 15 days of IV rocephin --- converted to PO doxy 100mg BID x 14 days this would provide a total of 28 days of abx therapy for ?? chronic Lyme. (4) Hypertension: Plan: Cont IV beta angelita scheduled. (lopressor 7.5mg q6h IV) Cont IV hydralazine scheduled. Cont catapres patch. Until PO intake is very reliable keep the regimen as is. (5) Alcohol dependence: Plan: See above (6) Hepatitis C: Plan: Chronic, previously seen by ID in 2019 and was offered treatment, however declined at that time. Reportedly has received hep A and B vaccines. Had alcoholic hepatitis earlier this admission but LFTs normalized. Patient with prior h/o drug abuse and had been incarcerated for illicit drugs in the past. (7) Hypertensive urgency: Plan: early in the hospital stay, likely due to severe agitation from DTs resolved (8) Hypomagnesemia: Plan: replaced resolved low potassium today - start potassium powder 20meq BID repeat BMP am repeat mag am (9) PUD (peptic ulcer disease): Plan: cont PPI duodenal bulb ulcer on recent EGD by [facility] (10) Garblemelanie speech: Plan: recurrent this often worsens with over-sedation from medications (especially ativan) can't rule out other etiologies recent MRI brain neg for CVA however (11) Sphenoid sinusitis: Plan: as seen on MRI brain rocephin/doxy for Lyme should suffice no residual URI symptoms at this time no fevers (12) Learning disabilities: Plan: see scanned neuropsych testing done in the early Plan: DVT proph - lovenox Bonnie Alexandra, pt's sister -- [phone] -- she resides in [place] - updated earlier in the hospital stay as well as 01/09/22 extensive discussion had regarding my concerns about prognosis, nutrition, etc. Shefali aCvazos - daughter - [phone] extensively updated by phone 01/11/22 she is interested in being her father's POA as she is local in [place] and is next of kin her Aunt Bonnie (pt's sister) is ok with Shefali being POA discussed how to get POA paperwork Shefali understands that what we currently see with her father may be permanent (ie - dementia, Wernicke's, etc) dispo - very uncertain - SNF long-term most likely VS palliative care if n utrition/mental status continues to be poor not able to participate in PT/OT evaluations at this time due to altered mental status Admission and Anticipated Discharge Date Admission Date: December 23, 2021 Subjective patient VERY confused during my visit I saw him late afternoon and he was trying to crawl out of bed he was mumbling some words and at some point he said "tell me the truth" he was talking about "getting all the guys to go" I was able to distract him by talking about other topics; he calmed down and stopped trying to crawl out of bed last night he did take the oral seroquel but required IM olanzapine at ~4:30am he also required IV ativan about an hour later due to agitation no other new issues telemetry wnl Review of Systems Review of Systems: Unobtainable due to cognitive status Physical Exam Physical Exam: gen - agitated, confused, trying to crawl out of bed, paranoid - accused me of lying to him and said "stop trying to change the subject" (?) eyes - moving his eyes more so than previous but tracking/extraocular muscle movement perhaps slightly more than yesterday neck - no JVD heart - RRR, s1 s2, no murmur lungs - CTA b/l abd - soft, NT, ND, BS+ ext - no edema, pulses 2+ b/l neuro - masked facies type affect psych - oriented to person only Results & Data Results & Data ([facility]) Vital Signs (Past 12 Hours) Vital Signs Temp Pulse Pulse Resp BP BP BP 01/12/22 23:31 36.6 C 87 20 136/88 01/12/22 23:17 87 136/88 01/12/22 17:38 80 145/89 H 01/12/22 16:09 36.4 C L 80 20 145/89 H 01/12/22 16:00 73 Pulse Ox 01/12/22 23:31 95 01/12/22 23:17 01/12/22 17:38 01/12/22 16:09 01/12/22 16:00 Laboratory Results Laboratory Results - last 24 hr 01/12/22 06:16 Sodium 143 Potassium 3.3 L Chloride 110 H Carbon Dioxide 24 Anion Gap 9 BUN 28 H Creatinine 0.66 Est Cr Clr Drug Dosing 108.6 Est GFR ( Amer) 116.0 Est GFR (Non-Af Amer) 100.0 BUN/Creatinine Ratio 42.4 H Glucose 103 H Calcium 9.8 PG Care Time/CCT Total # of Minutes Spent Total Time Spent with Patient: Total time spent is greater than 50% in coordination of care (as documented) at patient's floor/unit and/or counseling patient: Coding Level of Care Code 20310 Subseq Hosp Care Lvl 2 Diagnoses Encephalopathy G93.40 Delirium tremens F10.231 Positive Lyme disease serology R76.8 Hypertension I10 Alcohol dependence F10.251 Complication of substance-induced condition: with hallucinations Substance use status: alcohol-induced psychotic disorder Hepatitis C B19.20 Hypertensive urgency I16.0 Hypomagnesemia E83.42 PUD (peptic ulcer disease) K27.9 Garbled speech R47.89 Sphenoid sinusitis J32.3 Learning disabilities F81.9 (1) Alcohol dependence Complication of substance-induced condition: with hallucinations Substance use status: alcohol-induced psychotic disorder Qualified Code(s): 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
[2022-01-13] MEDS: hydrALAZINE HCL 20 MG/ML VIAL IV SCH ×3 (03:13→20:57)
[2022-01-13] MEDS: DOXYCYCLINE HYCLATE 100 MG CAP PO SCH ×2 (05:59→17:02)
[2022-01-13] MEDS: METOPROLOL TARTRATE 1 MG/ML VIAL IV SCH ×4 (05:59→23:49)
[2022-01-13] MEDS: MULTI VIT W/MINERALS LIQUID 15 ML UDP GT SCH (07:54)
[2022-01-13] MEDS: LANSOPRAZOLE 30 MG SOLTAB PO SCH (07:54)
[2022-01-13] MEDS: THIAMINE HCL 100 MG TAB PO SCH ×2 (07:54→20:59)
[2022-01-13] MEDS: POTASSIUM CHLORIDE PWD 20 MEQ PACK PO SCH ×2 (07:55→20:58)
[2022-01-13] MEDS: FOLIC ACID 1 MG TAB PO SCH (07:55)
[2022-01-13] MEDS: SENNOSIDES 8.8 MG/5 ML UDC PO SCH ×2 (07:55→20:59)
[2022-01-13] MEDS: CHECK CLONIDINE PATCH PLACEMENT SCH ×3 (07:55→23:52)
[2022-01-13 08:55] LABS: Calcium 9.7 mg/dl (8.5-10.1); Creatinine Clr Calc Pharmacy 100.7 ml/min; Est GFR (African American) 108.8 ml/min; Est GFR (Non-African American) 93.9 ml/min; Magnesium 1.7 mg/dl (1.7-2.4); Potassium 3.7 mmol/L (3.5-5.1)
--- NOTE | 2022-01-13 16:00 | Communication Note ---
Date of Service: January 13, 2022 [place] today. Would engage briefly with eye contact but otherwise would not engage with any conversation. No evidence for worsening of any stiffness or muscle c hanges or EPS. Required one dose of ativan IV last night. Continue with seroquel 25mg qhs. Suspect combination of resolving delirium, prolonged alcohol use effects and dementia.
--- NOTE | 2022-01-13 16:30 | Hospitalist Progress Note ---
Date of Service January 13, 2022 Assessment & Plan (1) Encephalopathy: Plan: Ongoing. 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 I favor the former 2 etiologies. Unfortunately, if he does have Wernicke's, it appears he has not had any favorable response to aggressive thiamine administration and this could be permanent for him. Changed IV thiamine to PO thiamine. Lyme Western Blot IgG VERY positive. Western blot IgM negative. I can't rule out Lyme contributing to clinical picture but despite 14-day course of IV rocephin he has had no significant change in mental status. TSH, B12 levels both wnl. head CT at admission with atrophy/ventriculomegaly but no ICH, CVA, etc. RPR is nonreactive. Ammonia levels wnl. MRI brain 01/03 neg for acute findings. We are now approaching day #22 of his hospital stay. We are well past the point of any etoh withdrawal/DTs contributing to current mental status/cognitive status. His current mental status is troubling and prognosis likely very poor. Doubt Lyme is contributing to current clinical picture. Per his sister Bonnie who lives out of town he has had intermittent hallucinations/psychosis over the years. I am uncertain if he has psychotic d/o at baseline, substance induced mood disorder with psychosis (previous drug use, heavy etoh, etc), alcoholic dementia with hallucinations (or Lewy-Body dementia) etc. Appreciate Dr Angulo's assistance with med management. She has increased Seroquel to 25mg HS. IM zyprexa 2.5mg prn, max 10mg in 24 hours. AVOID concomitant use of zyprexa IM and IV ativan (respiratory depression). -> Discussed with Dr. Angulo today. She feels this is less delirium, and more likely dementia and likely permanent. (2) Delirium tremens: Plan: Resolved. s/p ICU stay for his DTs - required Precedex drip, IV ativan frequently, etc. s/p high-dose IV thiamine for numerous days. (3) Positive Lyme disease serology: Plan: Western blot results -- IgM negative; IgG very positive with nearly all bands positive. this would suggest early disseminated Lyme disease or later stage Lyme. since IgM was negative we are not dealing with acute/early stage Lyme. s/p 15 days of IV rocephin --- converted to PO doxy 100mg BID x 14 days this would provide a total of 28 days of abx therapy for ?? chronic Lyme. (4) Hypertension: Plan: BP today is 130/90. - Cont IV beta angelita scheduled. (lopressor 7.5mg q6h IV) - Cont IV hydralazine scheduled. - Cont catapres patch. Until PO intake is very reliable keep the regimen as is. (5) Alcohol dependence: Plan: See above (6) Hepatitis C: Plan: Chronic, previously seen by ID in 2019 and was offered treatment, however declined at that time. Reportedly has received hep A and B vaccines. Had alcoholic hepatitis earlier this admission but LFTs normalized. Patient with prior h/o drug abuse and had been incarcerated for illicit drugs in the past. (7) Hypertensive urgency: Plan: early in the hospital stay, likely due to severe agitation from DTs resolved (8) Hypomagnesemia: Plan: replaced resolved (9) PUD (peptic ulcer disease): Plan: cont PPI duodenal bulb ulcer on recent EGD by [facility] (10) Garbled speech: Plan: Recurrent. This often worsens with over-sedation from medications (especially Ativan). Recent MRI brain neg for CVA. (11) Sphenoid sinusitis: Plan: as seen on MRI brain rocephin/doxy for Lyme should suffice no residual URI symptoms at this time no fevers (12) Learning disabilities: Plan: see scanned neuropsych testing done in the early Plan: DVT proph - lovenox Bonnie Alexandra, pt's sister -- [phone] -- she resides in [place] - updated earlier in the hospital stay as well as 01/09/22 extensive discussion had regarding my concerns about prognosis, nutrition, etc. Shefali Cavazos - daughter - [phone] extensively updated by phone 01/11/22 she is interested in being her father's POA as she is local in [place] and is next of kin her Aunt Bonnie (pt's sister) is ok with Shefali being POA discussed how to get POA paperwork Shefali understands that what we currently see with her father may be permanent (ie - dementia, Wernicke's, etc) dispo - very uncertain - SNF long-term most likely VS palliative care if nutrition/mental status continues to be poor not able to participate in PT/OT evaluations at this time due to altered mental status Admission and Anticipated Discharge Date Admission Date: December 23, 2021 Subjective Feels well for me. Reports no fevers/chills, chest pain, shortness of breath, abdominal pain, nausea, or vomiting. Initially, he seems fairly with it, in that he reports he has "been here too long" and wants to go home. He reports that he has a house in [place] that is costing him too much money. 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 He also starts repeating his address "[address] [place] [address]" for several answers. He says that we are at [facility] located at [address] [place] [address]. He also reports it is 2003. Physical Exam Constitutional: WD/WN, vitals as above Eyes: EOM intact bilaterally; no conjunctival abnormality ENMT: external ear and nose normal, oropharynx normal Neck: trachea midline, no thyromegaly normal visual inspection Respiratory: normal respiratory effort, lungs clear to auscultation no respiratory distress Cardiovascular: RRR, no murmur, no edema Gastrointestinal (Abdomen): Inspection/Auscultation: abdomen normal to inspection; abdomen not distended Musculoskeletal: no cyanosis or clubbing, extremities motor strength 5/5 Skin: no rashes, warm and dry Neurologic: moves all extremities and awake Psychiatric: Orientation: alert, oriented to person and cooperative; + not oriented to place and + not oriented to time Results & Data Results & Data ([facility]) Vital Signs (Past 12 Hours) Vital Signs Temp Pulse Pulse Resp BP BP BP 01/13/22 15:43 37 C 87 18 128/89 01/13/22 14:47 82 01/13/22 11:50 77 141/90 H 01/13/22 11:33 36.4 C L 77 18 141/90 H 01/13/22 07:56 36.4 C L 75 18 164/91 H 01/13/22 07:16 68 01/13/22 05:59 74 133/80 Pulse Ox 01/13/22 15:43 97 01/13/22 14:47 01/13/22 11:50 01/13/22 11:33 96 01/13/22 07:56 95 01/13/22 07:16 01/13/22 05:59 PG Care Time/CCT Total # of Minutes Spent Total Time Spent with Patient: Total time spent is greater than 50% in coordination of care (as documented) at patient's floor/unit and/or counseling patient: Coding Level of Care Code 10733 Subseq Hosp Care Lvl 2 Diagnoses Encephalopathy G93.40 Delirium tremens F10.231 Positive Lyme disease serology R76.8 Hypertension I10 Alcohol dependence F10.251 Complication of substance-induced condition: with hallucinations Substance use status: alcohol-induced psychotic disorder Hepatitis C B19.20 Hypertensive urgency I16.0 Hypomagnesemia E83.42 PUD (peptic ulcer disease) K27.9 Garbled speech R47.89 Sphenoid sinusitis J32.3 Learning disabilities F81.9 (1) Alcohol dependence Complication of substance-induced condition: with hallucinations Substance use status: alcohol-induced psychotic disorder Qualified Code(s): 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
[2022-01-13] MEDS: ENOXAPARIN INJ 40 MG/0.4 ML SYR SQ SCH (20:57)
[2022-01-13] MEDS: QUEtiapine FUMARATE 25 MG TABLET PO SCH (20:58)
[2022-01-14] MEDS: hydrALAZINE HCL 20 MG/ML VIAL IV SCH ×2 (04:04→12:15)
[2022-01-14] MEDS: SENNOSIDES 8.8 MG/5 ML UDC PO SCH ×2 (07:43→20:59)
[2022-01-14] MEDS: LANSOPRAZOLE 30 MG SOLTAB PO SCH (07:43)
[2022-01-14] MEDS: THIAMINE HCL 100 MG TAB PO SCH ×2 (07:43→21:01)
[2022-01-14] MEDS: MULTI VIT W/MINERALS LIQUID 15 ML UDP GT SCH (07:44)
[2022-01-14] MEDS: POTASSIUM CHLORIDE PWD 20 MEQ PACK PO SCH ×2 (07:44→21:01)
[2022-01-14] MEDS: DOXYCYCLINE HYCLATE 100 MG CAP PO SCH ×2 (07:44→17:58)
[2022-01-14] MEDS: FOLIC ACID 1 MG TAB PO SCH (07:44)
[2022-01-14] MEDS: CHECK CLONIDINE PATCH PLACEMENT SCH ×2 (07:45→16:05)
[2022-01-14] MEDS: METOPROLOL TARTRATE 1 MG/ML VIAL IV SCH ×2 (07:51→12:15)
--- NOTE | 2022-01-14 14:12 | Hospitalist Progress Note ---
Date of Service January 14, 2022 Assessment & Plan (1) Encephalopathy: Plan: Ongoing. Wernicke's encephalopathy, alcoholic dementia, hospital psychosis, CHERRY GROWER lyme disease are all possible culprits. I favor the former 2 etiologies. Unfortunately, if he does have Wernicke's, it appears he has not had any favorable response to aggressive thiamine administration and this could be permanent for him. Changed IV thiamine to PO thiamine. Lyme Western Blot IgG VERY positive. Western blot IgM negative. I can't rule out Lyme contributing to clinical picture but despite 14-day course of IV rocephin he has had no significant change in mental status. TSH, B12 levels both wnl. head CT at admission with atrophy/ventriculomegaly but no ICH, CVA, etc. RPR is nonreactive. Ammonia levels wnl. MRI brain 01/03 neg for acute findings. We are now approaching day #22 of his hospital stay. We are well past the point of any etoh withdrawal/DTs contributing to current mental status/cognitive status. His current mental status is troubling and prognosis likely very poor. Doubt Lyme is contributing to current clinical picture. Per his sister Bonnie who lives out of town he has had intermittent hallucinations/psychosis over the years. I am uncertain if he has psychotic d/o at baseline, substance induced mood disorder with psychosis (previous drug use, heavy etoh, etc), alcoholic dementia with hallucinations (or Lewy-Body dementia) etc. Appreciate Dr Angulo's assistance with med management. She has increased Seroquel to 25mg HS. IM zyprexa 2.5mg prn, max 10mg in 24 hours. AVOID concomitant use of zyprexa IM and IV ativan (respiratory depression). -> Discussed with Dr. Angulo on 01/14. She feels this is less delirium, and more likely dementia and likely permanent. He is better than prior days, but still has confabulation and unable to make sensible decisions. (2) Delirium tremens: Plan: Resolved. s/p ICU stay for his DTs - required Precedex drip, IV ativan frequently, etc. s/p high-dose IV thiamine for numerous days. (3) Positive Lyme disease serology: Plan: Western blot results -- IgM negative; IgG very positive with nearly all bands positive. this would suggest early disseminated Lyme disease or later stage Lyme. since IgM was negative we are not dealing with acute/early stage Lyme. s/p 15 days of IV rocephin --- converted to PO doxy 100mg BID x 14 days this would provide a total of 28 days of abx therapy for ?? chronic Lyme. (4) Hypertension: Plan: BP today is 130/90. - Stop IV beta angelita for oral - Stop IV hydralazine -> Can restart oral if needed. - Cont catapres patch. (5) Alcohol dependence: Plan: See above (6) Hepatitis C: Plan: Chronic, previously seen by ID in 2019 and was offered treatment, however declined at that time. Reportedly has received hep A and B vaccines. Had alcoholic hepatitis earlier this admission but LFTs normalized. Patient with prior h/o drug abuse and had been incarcerated for illicit drugs in the past. (7) Hypertensive urgency: Plan: early in the hospital stay, likely due to severe agitation from DTs resolved (8) Hypomagnesemia: Plan: replaced resolved (9) PUD (peptic ulcer disease): Plan: cont PPI duodenal bulb ulcer on recent EGD by [facility] (10) Sphenoid sinusitis: Plan: as seen on MRI brain rocephin/doxy for Lyme should suffice no residual URI symptoms at this time no fevers (11) Learning disabilities: Plan: see scanned neuropsych testing done in the early Plan: DVT proph - Lovenox 40 mg SQ daily Bonnie Morris, pt's sister -- [phone] -- she resides in [place] - updated earlier in the hospital stay as well as 01/09/22 extensive discussion had regarding my concerns about prognosis, nutrition, etc. Shefali Cavazos - daughter - [phone] extensively updated by phone 01/11/22 she is interested in being her father's POA as she is local in [place] and is next of kin her Aunt Bonnie (pt's sister) is ok with Shefali being POA discussed how to get POA paperwork Shefali understands that what we currently see with her father may be permanent (ie - dementia, Wernicke's, etc) Dispo - SNF long-term vs. [facility] vs. memory unit. PT/OT ordered as he is much more alert and able to move around and participate. Admission and Anticipated Discharge Date Admission Date: December 23, 2021 Subjective No change today. He makes some sensible comments, but then also goes off on wild tangents. Reports no fevers/chills, chest pain, shortness of breath, abdominal pain, nausea, or vomiting. Physical Exam Constitutional: WD/WN, vitals as above Eyes: EOM intact bilaterally; no conjunctival abnormality ENMT: external ear and nose normal, oropharynx normal Neck: trachea midline, no thyromegaly normal visual inspection Respiratory: normal respiratory effort, lungs clear to auscultation no respiratory distress Cardiovascular: RRR, no murmur, no edema Gastrointestinal (Abdomen): Inspection/Auscultation: abdomen normal to inspection; abdomen not distended Musculoskeletal: no cyanosis or clubbing, extremities motor strength 5/5 Skin: no rashes, warm and dry Neurologic: moves all extremities and awake Psychiatric: Orientation: alert, oriented to person and cooperative; + not oriented to place and + not oriented to time Results & Data Results & Data ([facility]) Vital Signs (Past 12 Hours) Vital Signs Temp Pulse Pulse Resp BP BP Pulse Ox 01/14/22 12:15 88 115/75 01/14/22 11:27 36.6 C 79 20 153/93 H 97 01/14/22 07:33 36.9 C 74 18 136/85 96 01/14/22 03:45 36.8 C 75 16 112/67 96 PG Care Time/CCT Total # of Minutes Spent Total Time Spent with Patient: Total time spent is greater than 50% in coordination of care (as documented) at patient's floor/unit and/or counseling patient: Coding Level of Care Code 65975 Subseq Hosp Care Lvl 2 Diagnoses Encephalopathy G93.40 Delirium tremens F10.231 Positive Lyme disease serology R76.8 Hypertension I10 Alcohol dependence F10.251 Complication of substance-induced condition: with hallucinations Substance use status: alcohol-induced psychotic disorder Hepatitis C B19.20 Hypertensive urgency I16.0 Hypomagnesemia E83.42 PUD (peptic ulcer disease) K27.9 Sphenoid sinusitis J32.3 Learning disabilities F81.9 (1) Alcohol dependence Complication of substance-induced condition: with hallucinations Substance use status: alcohol-induced psychotic disorder Qualified Code(s): 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
[2022-01-14] MEDS: ENOXAPARIN INJ 40 MG/0.4 ML SYR SQ SCH (21:00)
[2022-01-14] MEDS: QUEtiapine FUMARATE 25 MG TABLET PO SCH (21:02)
[2022-01-14] MEDS: METOPROLOL TARTRATE 25 MG TAB PO SCH (21:48)
[2022-01-15] MEDS: DOXYCYCLINE HYCLATE 100 MG CAP PO SCH ×2 (06:28→18:20)
[2022-01-15] MEDS: FOLIC ACID 1 MG TAB PO SCH (08:00)
[2022-01-15] MEDS: LANSOPRAZOLE 30 MG SOLTAB PO SCH (08:00)
[2022-01-15] MEDS: POTASSIUM CHLORIDE PWD 20 MEQ PACK PO SCH ×2 (08:00→21:00)
[2022-01-15] MEDS: THIAMINE HCL 100 MG TAB PO SCH ×2 (08:00→21:02)
[2022-01-15] MEDS: CHECK CLONIDINE PATCH PLACEMENT SCH ×3 (08:01→16:17)
[2022-01-15] MEDS: METOPROLOL TARTRATE 25 MG TAB PO SCH ×2 (08:01→21:00)
[2022-01-15] MEDS: SENNOSIDES 8.8 MG/5 ML UDC PO SCH ×2 (08:01→21:02)
[2022-01-15] MEDS: MULTI VIT W/MINERALS LIQUID 15 ML UDP GT SCH (08:02)
[2022-01-15 08:47] LABS: Hematocrit (blood only) 41.2 % (42-52); Hemoglobin 13.6 g/dL (14.0-18.0); Mean Corpuscular Hemoglobin 29.8 pg (25-34); Mean Corpuscular Volume 90.4 fL (80-100); Mean Platelet Volume 12.2 fL (7.4-10.4); Platelet Count 299 K/uL (130-400); RDW Coefficient of Variation 13.8 % (11.5-14.5); Red Blood Count 4.56 M/uL (4.7-6.1)
[2022-01-15 09:10] LABS: Albumin Globulin Ratio 1.1 (0.9-2); Albumin Level 3.9 gm/dl (3.4-5.0); BUN Creatinine Ratio 33.8 (10-20); Bilirubin,Total 0.6 mg/dl (0.2-1.0); Calcium 9.7 mg/dl (8.5-10.1); Creatinine Clr Calc Pharmacy 96.9 ml/min; Est GFR (African American) 110.6 ml/min; Est GFR (Non-African American) 95.4 ml/min; Globulin 3.7 gm/dl (2.5-4.0); Magnesium 1.6 mg/dl (1.7-2.4); Phosphorus 3.6 mg/dl (2.5-4.9); Potassium 3.9 mmol/L (3.5-5.1); Total Protein 7.6 gm/dl (6.0-8.3)
--- NOTE | 2022-01-15 16:35 | Psychiatric Progress Note ---
Date of Service January 15, 2022 Impression / Recommendations Impression This is a 66 yo old admitted for complicated alcohol withdrawal. Diagnostically consistent with encephalopathy/hypoactive delirium, unclear etiology as he should be outside window for complicated alcohol withdrawal and showing more steady improvement, but superimposed on dementia given head CT findings with age-related and microvascular changes and poor performance on mini-cog testing in 2019. 01/15/22: Significant improvement today. No nystagmus with EOM exam. More reality- based and speech is improving. Could represent slow resolution of delirium versus fluctuating cognitive status due to dementia-type process. Does not appear to have antegrade or retrograde memory loss which is reassuring in context of heavy alcohol use. He's not interested in naltrexone but plans to avoid alcohol use. -c/w seroquel 25 mg qhs -Continue with delirium prevention measures: raising blinds during the day, closing at night, frequent re-orientation, contact with family/friends, explaining procedures/nursing care measures prior to physical contact, correct any hearing and visual impairments -For behavioral emergency: olanzapine 2.5 mg IM x 1 (DO NOT exceed 10mg per 24 hours, check EKG if IM dose required, NEVER co-administer with IM or IV benzodiazepines, if olanzapine is given wait at least 60 minutes before administration of lorazepam). (1) Encephalopathy: (2) Alcohol use disorder: (3) Cognitive impairment: see above Interval History Identifying Information 66 yo man with history of alcohol use disorder, severe, learning disabilities, HTN and history of prior incarcerations and preference to live socially isolated admitted medically for complicated alcohol withdrawal and concern for DT. Psychiatry was consulted for medication recommendations given ongoing confusion and periods of agitation. Chief Complaint "I'm good, hoping to get better so I can leave soon". Review of Systems Notes Stable sleep, eating more Subjective Subjective Patient was seen & assessed and interval progress reviewed.No IMs required. Oriented to person and [place] today thinks month is December and year is 2023. Discusses things his daughter brought him, his interest in motorcross/racing and desire to go to an in [facility] when he feels better. States he plans to avoid alcohol, isn't interested in naltrexone states if he struggles to avoid alcohol he would consider attending AA or thinking about MAT at that point. Procedures Performed Operation Date: 01/01/22 17:00 Actual Procedures p Esophagogastroduodenoscopy - Irphan E. Gaslightwala, MD Physical Exam Psychiatric Orientation: alert, oriented to person, oriented to place and cooperative; + not oriented to time Apperance: appropriately dressed Eye Contact: good eye contact Motor Behavior: n EPS (good neck ROM, no evidence dystonia) and n tremor Speech: + abnormal rate/rhythm/volume of speech (dysarthria-significantly better articulation today, louder) Affect: euthymic affect Mood: no depressed mood and no anxious mood Thought Process: clear/coherent thought process and + looseness of associations Thought Content: reality based without delusions Cognition: remote memory grossly intact (can recall his sister's name ), attention grossly intact and language grossly intact; + recent memory not intact Insight: + limited insight Judgement: + impaired judgement Vital Signs (Past 24 Hours) Last Vital Signs Temp 36.8 C 01/15/22 15:16 Pulse 72 01/15/22 15:16 Resp 19 01/15/22 15:16 BP 151/91 H 01/15/22 15:16 Pulse Ox 98 01/15/22 15:16 Results & Data ([facility]) Laboratory Results Laboratory Results - last 24 hr 01/15/22 01/15/22 08:34 08:34 WBC 4.60 L RBC 4.56 L Hgb 13.6 L Hct 41.2 L MCV 90.4 MCH 29.8 MCHC 33.0 RDW Std Deviation 46.0 RDW Coeff of Dutch 13.8 Plt Count 299 MPV 12.2 H Sodium 140 Potassium 3.9 Chloride 106 Carbon Dioxide 28 Anion Gap 6 BUN 25 H Creatinine 0.74 Est Cr Clr Drug Dosing 96.9 Est GFR ( Amer) 110.6 Est GFR (Non-Af Amer) 95.4 BUN/Creatinine Ratio 33.8 H Glucose 126 H Calcium 9.7 Phosphorus 3.6 Magnesium 1.6 L Total Bilirubin 0.6 AST 52 H ALT 73 H Alkaline Phosphatase 65 Total Protein 7.6 Albumin 3.9 Globulin 3.7 Albumin/Globulin Ratio 1.1 Current Inpatient Medications Current Inpatient Medications: Current Inpatient Medications Clonidine HCl (Clonidine Hcl 0.1 Mg/24 Hr Transderm Sys) 1 patch TD Q7D [facility] Stop: 02/08/22 15:59 Last Admin: 01/09/22 15:47 Dose: 1 patch Documented by: Doxycycline Hyclate (Doxycycline Hyclate 100 Mg Cap) 100 mg PO Q12H [facility] Stop: 01/21/22 05:59 Last Admin: 01/15/22 06:28 Dose: 100 mg Documented by: Enoxaparin Sodium (Enoxaparin Inj 40 Mg/0.4 Ml Syr) 40 mg SQ QPM [facility] Stop: 01/22/22 20:59 Last Admin: 01/14/22 21:00 Dose: 40 mg Documented by: Folic Acid (Folic Acid 1 Mg Tab) 1 mg PO QAM [facility] Stop: 02/10/22 08:59 Last Admin: 01/15/22 08:00 Dose: 1 mg Documented by: Hydralazine HCl (Hydralazine Hcl 20 Mg/Ml Vial) 10 mg IV Q6 PRN PRN Reason: SBP>160, DBP>100 Stop: 01/24/22 11:59 Last Admin: 01/10/22 07:57 Dose: 10 mg Documented by: Lansoprazole (Lansoprazole 30 Mg Soltab) [facility] Stop: 02/02/22 09:29 Last Admin: 01/15/22 08:00 Dose: 30 mg Documented by: Lorazepam (Lorazepam 2 Mg/1 Ml Vial) 1 mg IV Q4H PRN PRN Reason: Agitation Stop: 02/04/22 17:49 Last Admin: 01/12/22 19:04 Dose: 1 mg Documented by: Metoprolol Tartrate (Metoprolol Tartrate 25 Mg Tab) 12.5 mg PO BID [facility] Stop: 02/13/22 20:59 Last Admin: 01/15/22 08:01 Dose: 12.5 mg Documented by: Miscellaneous (Remove Clonidine Patch) 1 ea N/A CQWK [facility] Stop: 02/08/22 09:59 Last Admin: 01/09/22 10:12 Dose: 1 ea Documented by: Miscellaneous (Check Clonidine Patch Placement) 1 ea N/A QS [facility] Stop: 02/08/22 15:59 Last Admin: 01/15/22 08:01 Dose: 1 ea Documented by: Multivitamins/Minerals (Multi Vit W/Minerals Liquid 15 Ml Udp) 15 ml GT QAM [facility] Stop: 02/01/22 08:59 Last Admin: 01/15/22 08:02 Dose: 15 ml Documented by: Olanzapine (Olanzapine 10 Mg/2.1 Ml Sdv) 2.5 mg IM HS PRN PRN Reason: Agitation/confusion Stop: 02/08/22 20:59 Last Admin: 01/12/22 04:23 Dose: 2.5 mg Documented by: Ondansetron HCl (Ondansetron Inj 2 Mg/Ml 2 Ml Vial) 4 mg IV Q6H PRN PRN Reason: Nausea Stop: 01/22/22 20:22 Polyethylene Glycol (Polyethylene (Miralax) 17 Gm Pack) 17 gm PO DAILY PRN PRN Reason: CONSTIPATION Stop: 02/01/22 10:05 Potassium Chloride (Potassium Chloride Pwd 20 Meq Pack) 20 meq PO BID [facility] Stop: 02/11/22 10:14 Last Admin: 01/15/22 08:00 Dose: 20 meq Documented by: Quetiapine Fumarate (Quetiapine Fumarate 25 Mg Tablet) 25 mg PO HS [facility] Stop: 02/11/22 20:59 Last Admin: 01/14/22 21:02 Dose: 25 mg Documented by: Sennosides (Sennosides 8.8 Mg/5 Ml Udc) 8.8 mg PO BID [facility] Stop: 02/01/22 10:29 Last Admin: 01/15/22 08:01 Dose: 8.8 mg Documented by: Thiamine HCl (Thiamine Hcl 100 Mg Tab) 200 mg PO BID [facility] Stop: 02/10/22 08:59 Last Admin: 01/15/22 08:00 Dose: 200 mg Documented by:
--- NOTE | 2022-01-15 17:38 | Hospitalist Progress Note ---
Date of Service January 15, 2022 Assessment & Plan (1) Encephalopathy: Plan: Today is my first visiting the patient, patient can make goal oriented speech with me alert oriented x3, visited by psychiatric Following is the recommendation, This is a 66 yo old admitted for complicated alcohol withdrawal. Diagnostically consistent with encephalopathy/hypoactive delirium, unclear etiology as he should be outside window for complicated alcohol withdrawal and showing more betzy manuel improvement, but superimposed on dementia given head CT findings with age- related and microvascular changes and poor performance on mini-cog testing in 2019. 01/15/22: Significant improvement today. No nystagmus with EOM exam. More reality- based and speech is improving. Could represent slow resolution of delirium versus fluctuating cognitive status due to dementia-type process. Does not appear to have antegrade or retrograde memory loss which is reassuring in context of heavy alcohol use. He's not interested in naltrexone but plans to avoid alcohol use. -c/wseroquel 25 mg qhs -Continue with delirium prevention measures: raising blinds during the day, closing at night, frequent re-orientation, contact with family/friends, explaining procedures/nursing care measures prior to physical contact, correct any hearing and visual impairments -For behavioral emergency: olanzapine 2.5 mg IM x 1(DO NOT exceed 10mg per 24 hours, check EKG if IM dose required,NEVER co-administer with IM or IV benzodiazepines, if olanzapine is given wait at least 60 minutes before administration of lorazepam). Lyme Western Blot IgG VERY positive. Western blot IgM negative. Had a 14-day course of treatment with rest TSH, B12 levels both wnl. head CT at admission with atrophy/ventriculomegaly but no ICH, CVA, etc. RPR is nonreactive. Ammonia levels wnl. MRI brain 01/03 neg for acute findings. Discussed with the telephonic case manager about placement (2) Delirium tremens: Plan: Resolved. s/p ICU stay for his DTs - required Precedex drip, IV ativan frequently, etc. s/p high-dose IV thiamine for numerous days. (3) Positive Lyme disease serology: Plan: Western blot results -- IgM negative; IgG very positive with nearly all bands positive. this would suggest early disseminated Lyme disease or later stage Lyme. since IgM was negative we are not dealing with acute/early stage Lyme. s/p 15 days of IV rocephin --- converted to PO doxy 100mg BID x 14 days this would provide a total of 28 days of abx therapy for ?? chronic Lyme. (4) Hypertension: Plan: BP today is 130/90. - Stop IV beta angelita for oral - Stop IV hydralazine -> Can restart oral if needed. - Cont catapres patch. (5) Alcohol dependence: Plan: See above (6) Hepatitis C: Plan: Chronic, previously seen by ID in 2019 and was offered treatment, however declined at that time. Reportedly has received hep A and B vaccines. Had alcoholic hepatitis earlier this admission but LFTs normalized. Patient with prior h/o drug abuse and had been incarcerated for illicit drugs in the past. (7) Hypertensive urgency: Plan: early in the hospital stay, likely due to severe agitation from DTs resolved (8) Hypomagnesemia: Plan: replaced resolved (9) PUD (peptic ulcer disease): Plan: cont PPI duodenal bulb ulcer on recent EGD by [facility] (10) Sphenoid sinusitis: Plan: as seen on MRI brain rocephin/doxy for Lyme should suffice no residual URI symptoms at this time no fevers (11) Learning disabilities: Plan: see scanned neuropsych testing done in the early Plan: DVT proph - Lovenox 40 mg SQ daily Bonnie Morris, pt's sister -- [phone] -- she resides in [place] - updated earlier in the hospital stay as well as 01/09/22 extensive discussion had regarding my concerns about prognosis, nutrition, etc. Shefali Cavazos - daughter - [phone] extensively updated by phone 01/11/22 she is interested in being her father's POA as she is local in [place] and is next of kin her Aunt Bonnie (pt's sister) is ok with Shefali being POA discussed how to get POA paperwork Shefali understands that what we currently see with her father may be permanent (ie - dementia, Wernicke's, etc) Dispo - SNF long-term vs. [facility] vs. memory unit. PT/OT ordered as he is much more alert and able to move around and participate. Admission and Anticipated Discharge Date Admission Date: December 23, 2021 Subjective Significant improvement today. As per review of old notes, elevated x3 can make goal oriented communication Review of Systems Review of Systems: General: No malaise no weakness Neck: No tenderness no pain HEENT: No eye discharge no ear discharge Chest: No chest pain, no palpitation GI: Not distended, no nausea no vomiting Extremities: No edema no tenderness Neurology: No headache no weakness Psychiatric: No depression no anxiety Physical Exam Physical Exam: General: Alert oriented x3, well-nourished Neck: No lymphadenopathy, supple Respiratory: Lungs are clear to auscultation no chest abnormality Cardiovascular: Regular rate and rhythm no murmur no gallop vegetation Abdomen: Soft bowel sounds active Extremities: No edema no tenderness Skin: No jaundice no rash Neurology: Alert oriented x3 no acute distress moves all extremities Psychiatry mood and affect appropriate Constitutional: WD/WN, vitals as above Eyes: PERRL, conjunctivae normal, anicteric sclerae EOM intact bilaterally; no conjunctival abnormality ENMT: external ear and nose normal, oropharynx normal Nose: + external nose abnormality (NGT in place) Mouth: + oral mucosal abnormality (very dry tongue and mouth) Neck: trachea midline, no thyromegaly normal visual inspection Respiratory: normal respiratory effort, lungs clear to auscultation no respiratory distress Cardiovascular: RRR, no murmur, no edema Chest (Breasts): Chest: normal inspection of chest Gastrointestinal (Abdomen): normal bowel sounds, soft, nontender, no hepatosplenomegaly Inspection/Auscultation: abdomen normal to inspection; abdomen not distended Musculoskeletal: no cyanosis or clubbing, extremities motor strength 5/5 Extremities: extremities normal to inspection; no cyanosis and no clubbing Skin: no rashes, warm and dry Neurologic: moves all extremities, awake and + confused Psychiatric: Orientation: alert, oriented to person and cooperative; + not oriented to place and + not oriented to time Eye Contact: + fair eye contact Genitourinary: no penis abnormality (Young cath in place) Lymphatic: no lymphedema Results & Data Results & Data ([facility]) Vital Signs (Past 12 Hours) Vital Signs Temp Pulse Resp BP Pulse Ox 01/15/22 15:16 36.8 C 72 19 151/91 H 98 01/15/22 12:00 36.7 C 67 18 121/83 98 01/15/22 08:18 36.7 C 69 19 132/76 97 PG Care Time/CCT Total # of Minutes Spent Total Time Spent with Patient: Total time spent is greater than 50% in coordination of care (as documented) at patient's floor/unit and/or counseling patient: Coding Level of Care Code 75201 Subseq Hosp Care Lvl 2 Diagnoses Encephalopathy G93.40 Delirium tremens F10.231 Positive Lyme disease serology R76.8 Hypertension I10 Alcohol dependence F10.251 Complication of substance-induced condition: with hallucinations Substance use status: alcohol-induced psychotic disorder Hepatitis C B19.20 Hypertensive urgency I16.0 Hypomagnesemia E83.42 PUD (peptic ulcer disease) K27.9 Sphenoid sinusitis J32.3 Learning disabilities F81.9 (1) Alcohol dependence Complication of substance-induced condition: with hallucinations Substance use status: alcohol-induced psychotic disorder Qualified Code(s): 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
[2022-01-15] MEDS: QUEtiapine FUMARATE 25 MG TABLET PO SCH (21:02)
[2022-01-15] MEDS: ENOXAPARIN INJ 40 MG/0.4 ML SYR SQ SCH (21:03)
[2022-01-16] MEDS: CHECK CLONIDINE PATCH PLACEMENT SCH ×3 (00:39→16:40)
[2022-01-16] MEDS: LORazepam 2 MG/1 ML VIAL IV PRN ×3 (03:39→17:19)
[2022-01-16] MEDS: DOXYCYCLINE HYCLATE 100 MG CAP PO SCH ×3 (06:22→17:25)
[2022-01-16] MEDS ORDERED: HALOPERIDOL LACTATE 5 MG/ML 1 ML VIAL IM ONE (09:05)
[2022-01-16] MEDS: LANSOPRAZOLE 30 MG SOLTAB PO SCH (09:09)
[2022-01-16] MEDS: METOPROLOL TARTRATE 25 MG TAB PO SCH ×2 (09:11→20:56)
[2022-01-16] MEDS: SENNOSIDES 8.8 MG/5 ML UDC PO SCH ×2 (09:13→20:58)
[2022-01-16] MEDS: THIAMINE HCL 100 MG TAB PO SCH ×2 (09:14→20:58)
[2022-01-16] MEDS: POTASSIUM CHLORIDE PWD 20 MEQ PACK PO SCH ×2 (09:15→20:56)
[2022-01-16] MEDS: FOLIC ACID 1 MG TAB PO SCH (09:15)
[2022-01-16] MEDS: MULTI VIT W/MINERALS LIQUID 15 ML UDP GT SCH (09:17)
[2022-01-16] MEDS ORDERED: LORazepam 2 MG/1 ML VIAL IV STA (10:36)
--- NOTE | 2022-01-16 16:07 | Psychiatric Progress Note ---
Date of Service January 16, 2022 Impression / Recommendations Impression This is a 66 yo old admitted for complicated alcohol withdrawal. Diagnostically consistent with possible ongoing encephalopathy/hypoactive delirium, unclear etiology as he should be outside window for complicated alcohol withdrawal and showing more steady improvement yet has been getting some ativan intermittently which could contribute to confusion, superimposed on dementia versus now primary dementia picture with fluctuations in cognition and periods of behavioral disturbance. Of note he had head CT findings with age-related and microvascular changes and poor performance on mini-cog testing in 2019. 01/16/22: After improvement yesterday today was very agitated this morning and required IM ativan and haldol and this afternoon is unaware of being in the hospital and back to nonsensical thought content and loosening of associations. If fluctuations persist may be worthwhile to see if neurology thinks an EEG would be beneficial to rule out encephalopathy, could clarify if we are looking at more of a chronic fluctuating dementia. -c/w seroquel 25 mg qhs (not going to increase tonight given he required haldol today and QTc has been elevated). -Continue with delirium prevention measures: raising blinds during the day, closing at night, frequent re-orientation, contact with family/friends, explaining procedures/nursing care measures prior to physical contact, correct any hearing and visual impairments -Would try to limit ativan use as this may perpetuate delirium/cause further confusion in dementia -For behavioral emergency: olanzapine 2.5 mg IM x 1 (DO NOT exceed 10mg per 24 hours, check EKG if IM dose required, NEVER co-administer with IM or IV benzodiazepines, if olanzapine is given wait at least 60 minutes before administration of lorazepam). (1) Encephalopathy: (2) Alcohol use disorder: (3) Cognitive impairment: see above Interval History Identifying Information 66 yo man with history of alcohol use disorder, severe, learning disabilities, HTN and history of prior incarcerations and preference to live socially isolated admitted medically for complicated alcohol withdrawal and concern for DT. Psychiatry was consulted for medication recommendations given ongoing confusion and periods of agitation. Chief Complaint "[place]". Review of Systems Notes Increasing appetite, he denies any muscle pain or difficulty with movement Subjective Subjective Patient was seen & assessed and interval progress reviewed. This morning had code sanchez for agitation after throwing items off his breakfast tray. He received ativan IM with limited benefit and then I ordered IM haldol 2.5 mg due to ongoing escalation. This afternoon he is calmer and lying in bed but responds nonsensically to questions about orientation. When given choice of where we are located he states "grocery store". Thinks the month is September. Cannot partcipate in any fyrther coherent discussion as his responses do not make any sense. He can recall that his daughter brought him the flag hanging in the window when specifically asked about this. Procedures Performed Operation Date: 01/01/22 17:00 Actual Procedures p Esophagogastroduodenoscopy - Jim Olivier MD Physical Exam Psychiatric Orientation: alert and oriented to person; + not oriented to place and + not oriented to time Apperance: + disheveled Eye Contact: + poor eye contact Motor Behavior: n EPS (good neck ROM, no evidence dystonia) and n tremor Speech: + abnormal rate/rhythm/volume of speech (dysarthria-significantly better articulation today, louder) Affect: + constricted affect Mood: + irritable mood Thought Process: + looseness of associations and + incoherent thought process Thought Content: reality based without delusions Cognition: remote memory grossly intact (can recall his sister's name ), attention grossly intact and language grossly intact; + recent memory not intact Insight: + limited insight Judgement: + impaired judgement Vital Signs (Past 24 Hours) Last Vital Signs Temp 36.8 C 01/16/22 07:44 Pulse 74 01/16/22 07:44 Resp 20 01/16/22 07:44 BP 159/98 H 01/16/22 07:44 Pulse Ox 98 01/16/22 07:44 Results & Data ([facility]) Current Inpatient Medications Current Inpatient Medications: Current Inpatient Medications Clonidine HCl (Clonidine Hcl 0.1 Mg/24 Hr Transderm Sys) 1 patch TD Q7D TYLOR Stop: 02/08/22 15:59 Last Admin: 01/09/22 15:47 Dose: 1 patch Documented by: Doxycycline Hyclate (Doxycycline Hyclate 100 Mg Cap) 100 mg PO Q12H TYLOR Stop: 01/21/22 05:59 Last Admin: 01/16/22 06:22 Dose: 100 mg Documented by: Enoxaparin Sodium (Enoxaparin Inj 40 Mg/0.4 Ml Syr) 40 mg SQ QPM TYLOR Stop: 01/22/22 20:59 Last Admin: 01/15/22 21:03 Dose: Not Given Documented by: Folic Acid (Folic Acid 1 Mg Tab) 1 mg PO QAM [facility] Stop: 02/10/22 08:59 Last Admin: 01/16/22 09:15 Dose: 1 mg Documented by: Hydralazine HCl (Hydralazine Hcl 20 Mg/Ml Vial) 10 mg IV Q6 PRN PRN Reason: SBP>160, DBP>100 Stop: 01/24/22 11:59 Last Admin: 01/10/22 07:57 Dose: 10 mg Documented by: Lansoprazole (Lansoprazole 30 Mg Soltab) 30 mg PO QAM [facility] Stop: 02/02/22 09:29 Last Admin: 01/16/22 09:09 Dose: 30 mg Documented by: Lorazepam (Lorazepam 2 Mg/1 Ml Vial) 1 mg IV Q4H PRN PRN Reason: Agitation Stop: 02/04/22 17:49 Last Admin: 01/16/22 08:35 Dose: 1 mg Documented by: Metoprolol Tartrate (Metoprolol Tartrate 25 Mg Tab) 12.5 mg PO BID [facility] Stop: 02/13/22 20:59 Last Admin: 01/16/22 09:11 Dose: 12.5 mg Documented by: Miscellaneous (Remove Clonidine Patch) 1 ea N/A CQWK [facility] Stop: 02/08/22 09:59 Last Admin: 01/09/22 10:12 Dose: 1 ea Documented by: Miscellaneous (Check Clonidine Patch Placement) 1 ea N/A QS [facility] Stop: 02/08/22 15:59 Last Admin: 01/16/22 09:09 Dose: 1 ea Documented by: Multivitamins/Minerals (Multi Vit W/Minerals Liquid 15 Ml Udp) 15 ml GT QAM [facility] Stop: 02/01/22 08:59 Last Admin: 01/16/22 09:17 Dose: 15 ml Documented by: Olanzapine (Olanzapine 10 Mg/2.1 Ml Sdv) 2.5 mg IM HS PRN PRN Reason: Agitation/confusion Stop: 02/08/22 20:59 Last Admin: 01/12/22 04:23 Dose: 2.5 mg Documented by: Ondansetron HCl (Ondansetron Inj 2 Mg/Ml 2 Ml Vial) 4 mg IV Q6H PRN PRN Reason: Nausea Stop: 01/22/22 20:22 Polyethylene Glycol (Polyethylene (Miralax) 17 Gm Pack) 17 gm PO DAILY PRN PRN Reason: CONSTIPATION Stop: 02/01/22 10:05 Potassium Chloride (Potassium Chloride Pwd 20 Meq Pack) 20 meq PO BID [facility] Stop: 02/11/22 10:14 Last Admin: 01/16/22 09:15 Dose: 20 meq Documented by: Quetiapine Fumarate (Quetiapine Fumarate 25 Mg Tablet) 25 mg PO HS [facility] Stop: 02/11/22 20:59 Last Admin: 01/15/22 21:02 Dose: 25 mg Documented by: Sennosides (Sennosides 8.8 Mg/5 Ml Udc) 8.8 mg PO BID [facility] Stop: 02/01/22 10:29 Last Admin: 01/16/22 09:13 Dose: 8.8 mg Documented by: Thiamine HCl (Thiamine Hcl 100 Mg Tab) 200 mg PO BID [facility] Stop: 02/10/22 08:59 Last Admin: 01/16/22 09:14 Dose: 200 mg Documented by:
[2022-01-16] MEDS: cloNIDine HCL 0.1 MG/24 HR TRANSDERM SYS TD SCH (16:40)
[2022-01-16] MEDS: hydrALAZINE HCL 20 MG/ML VIAL IV PRN (16:59)
--- NOTE | 2022-01-16 18:38 | Hospitalist Progress Note ---
Date of Service January 16, 2022 Assessment & Plan (1) Encephalopathy: Plan: Today patient became combative and currently is confused possibly because the medication that he has received to calm him down, will follow psychiatry recommendation, discussed with the manager rn case for place This is a 66 yo old admitted for complicated alcohol withdrawal. Diagnostically consistent with encephalopathy/hypoactive delirium, unclear etiology as he should be outside window for complicated alcohol withdrawal and showing more steady improvement, but superimposed on dementia given head CT findings with age-related and microvascular changes and poor performance on mini-cog testing in 2019. 01/15/22: Significant improvement today. No nystagmus with EOM exam. More reality- based and speech is improving. Could represent slow resolution of delirium versus fluctuating cognitive status due to dementia-type process. Does not appear to have antegrade or retrograde memory loss which is reassuring in context of heavy alcohol use. He's not interested in naltrexone but plans to avoid alcohol use. -c/wseroquel 25 mg qhs Lyme Western Blot IgG VERY positive. Western blot IgM negative. Had a 14-day course of treatment with rest TSH, B12 levels both wnl. head CT at admission with atrophy/ventriculomegaly but no ICH, CVA, etc. RPR is nonreactive. Ammonia levels wnl. MRI brain 01/03 neg for acute findings. Discussed with the manager rn case about placement (2) Delirium tremens: Plan: Resolved. s/p ICU stay for his DTs - required Precedex drip, IV ativan frequently, etc. s/p high-dose IV thiamine for numerous days. (3) Positive Lyme disease serology: Plan: Western blot results -- IgM negative; IgG very positive with nearly all bands positive. this would suggest early disseminated Lyme disease or later stage Lyme. since IgM was negative we are not dealing with acute/early stage Lyme. s/p 15 days of IV rocephin --- converted to PO doxy 100mg BID x 14 days this would provide a total of 28 days of abx therapy for ?? chronic Lyme. (4) Hypertension: Plan: BP today is 130/90. - Stop IV beta angelita for oral - Stop IV hydralazine -> Can restart oral if needed. - Cont catapres patch. (5) Alcohol dependence: Plan: See above (6) Hepatitis C: Plan: Chronic, previously seen by ID in 2019 and was offered treatment, however declined at that time. Reportedly has received hep A and B vaccines. Had alcoholic hepatitis earlier this admission but LFTs normalized. Patient with prior h/o drug abuse and had been incarcerated for illicit drugs in the past. (7) Hypertensive urgency: Plan: early in the hospital stay, likely due to severe agitation from DTs resolved (8) Hypomagnesemia: Plan: replaced resolved (9) PUD (peptic ulcer disease): Plan: cont PPI duodenal bulb ulcer on recent EGD by [facility] (10) Sphenoid sinusitis: Plan: as seen on MRI brain rocephin/doxy for Lyme should suffice no residual URI symptoms at this time no fevers (11) Learning disabilities: Plan: see scanned neuropsych testing done in the early Plan: DVT proph - Lovenox 40 mg SQ daily Bonnie Morris, pt's sister -- [phone] -- she resides in [place] - updated earlier in the hospital stay as well as 01/09/22 extensive discussion had regarding my concerns about prognosis, nutrition, etc. Shefali Cavazos - daughter - [phone] extensively updated by phone 01/11/22 she is interested in being her father's POA as she is local in [place] [facility] and is next of kin her Aunt Bonnie (pt's sister) is ok with Shefali being POA discussed how to get POA paperwork Shefali understands that what we currently see with her father may be permanent (ie - dementia, Wernicke's, etc) Dispo - SNF long-term vs. [facility] vs. memory unit. PT/OT ordered as he is much more alert and able to move around and participate. Admission and Anticipated Discharge Date Admission Date: December 23, 2021 Subjective Today the patient became combative and attacked at the medical staff, received 2 mg lorazepam intravenously Review of Systems Review of Systems: General: No malaise no weakness Neck: No tenderness no pain HEENT: No eye discharge no ear discharge Chest: No chest pain, no palpitation GI: Not distended, no nausea no vomiting Extremities: No edema no tenderness Neurology: No headache no weakness Psychiatric: No depression no anxiety Physical Exam Physical Exam: General: Alert oriented x3, well-nourished Neck: No lymphadenopathy, supple Respiratory: Lungs are clear to auscultation no chest abnormality Cardiovascular: Regular rate and rhythm no murmur no gallop vegetation Abdomen: Soft bowel sounds active Extremities: No edema no tenderness Skin: No jaundice no rash Neurology: Alert oriented x3 no acute distress moves all extremities Psychiatry mood and affect appropriate Constitutional: WD/WN, vitals as above Eyes: PERRL, conjunctivae normal, anicteric sclerae EOM intact bilaterally; no conjunctival abnormality ENMT: external ear and nose normal, oropharynx normal Nose: + external nose abnormality (NGT in place) Mouth: + oral mucosal abnormality (very dry tongue and mouth) Neck: trachea midline, no thyromegaly normal visual inspection Respiratory: normal respiratory effort, lungs clear to auscultation no respiratory distress Cardiovascular: RRR, no murmur, no edema Chest (Breasts): Chest: normal inspection of chest Gastrointestinal (Abdomen): normal bowel sounds, soft, nontender, no hepatosplenomegaly Inspection/Auscultation: abdomen normal to inspection; abdomen not distended Musculoskeletal: no cyanosis or clubbing, extremities motor strength 5/5 Extremities: extremities normal to inspection; no cyanosis and no clubbing Skin: no rashes, warm and dry Neurologic: moves all extremities, awake and + confused Psychiatric: Orientation: alert, oriented to person and cooperative; + not oriented to place and + not oriented to time Eye Contact: + fair eye contact Genitourinary: no penis abnormality (Young cath in place) Lymphatic: no lymphedema Results & Data Results & Data ([facility]) Vital Signs (Past 12 Hours) Vital Signs Temp Pulse Pulse Resp BP Pulse Ox 01/16/22 16:23 36.4 C L 92 H 18 181/90 H 96 01/16/22 07:44 36.8 C 74 20 159/98 H 98 01/16/22 07:00 70 PG Care Time/CCT Total # of Minutes Spent Total Time Spent with Patient: Total time spent is greater than 50% in coordination of care (as documented) at patient's floor/unit and/or counseling patient: Coding Level of Care Code 29470 Subseq Hosp Care Lvl 3 Diagnoses Encephalopathy G93.40 Delirium tremens F10.231 Positive Lyme disease serology R76.8 Hypertension I10 Alcohol dependence F10.251 Complication of substance-induced condition: with hallucinations Substance use status: alcohol-induced psychotic disorder Hepatitis C B19.20 Hypertensive urgency I16.0 Hypomagnesemia E83.42 PUD (peptic ulcer disease) K27.9 Sphenoid sinusitis J32.3 Learning disabilities F81.9 (1) Alcohol dependence Complication of substance-induced condition: with hallucinations Substance use status: alcohol-induced psychotic disorder Qualified Code(s): 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
[2022-01-16] MEDS: QUEtiapine FUMARATE 25 MG TABLET PO SCH (20:57)
[2022-01-16] MEDS: ENOXAPARIN INJ 40 MG/0.4 ML SYR SQ SCH (20:58)
[2022-01-17] MEDS: CHECK CLONIDINE PATCH PLACEMENT SCH ×3 (00:51→16:00)
[2022-01-17] MEDS: DOXYCYCLINE HYCLATE 100 MG CAP PO SCH ×2 (05:55→18:16)
[2022-01-17] MEDS: THIAMINE HCL 100 MG TAB PO SCH ×2 (08:27→20:31)
[2022-01-17] MEDS: SENNOSIDES 8.8 MG/5 ML UDC PO SCH ×2 (08:27→20:32)
[2022-01-17] MEDS: POTASSIUM CHLORIDE PWD 20 MEQ PACK PO SCH ×2 (08:27→20:31)
[2022-01-17] MEDS: MULTI VIT W/MINERALS LIQUID 15 ML UDP GT SCH (08:27)
[2022-01-17] MEDS: FOLIC ACID 1 MG TAB PO SCH (08:28)
[2022-01-17] MEDS: METOPROLOL TARTRATE 25 MG TAB PO SCH ×2 (08:28→20:32)
--- NOTE | 2022-01-17 10:14 | Communication Note ---
Date of Service: January 17, 2022 case reviewed. Patient was seen by Dr. Angulo yesterday with rec to increase Seroquel but dose was not adjusted as had just received prn. Per liaison patient is calmer this am. Does appear that pulled out IV last pm. Looking back over chart some previous prns given early evening but agitation yesterday am was clearly not owning. Certainly I have seen protracted withdrawal syndromes in patients with underlying cognitive issues but agree late for ongoing ETOH withdrawal delirium and presentation not particularly consistent with Wernicke's enceph. Will add pre dinner dose of Seroquel 12.5 mg in addition to hs dose and monitor.
[2022-01-17] MEDS ORDERED: CYCLOBENZAPRINE HCL 10 MG TAB PO PRN (10:24)
[2022-01-17] MEDS: LANSOPRAZOLE 30 MG SOLTAB PO SCH (10:28)
--- NOTE | 2022-01-17 14:52 | Hospitalist Progress Note ---
Date of Service January 17, 2022 Assessment & Plan (1) Encephalopathy: Plan: Does not seem patient encephalopathic, mostly patient suffering from underlying dementia in setting of chronic alcoholism Some days patient more reliable cooperative and his responses make sense that there is no Follow-up with psychiatry recommendation Pending place (2) Delirium tremens: Plan: Resolved. s/p ICU stay for his DTs - required Precedex drip, IV ativan frequently, etc. s/p high-dose IV thiamine for numerous days. (3) Positive Lyme disease serology: Plan: Western blot results -- IgM negative; IgG very positive with nearly all bands positive. this would suggest early disseminated Lyme disease or later stage Lyme. since IgM was negative we are not dealing with acute/early stage Lyme. s/p 15 days of IV rocephin --- converted to PO doxy 100mg BID x 14 days this would provide a total of 28 days of abx therapy for ?? chronic Lyme. (4) Hypertension: Plan: BP today is 130/90. - Stop IV beta angelita for oral - Stop IV hydralazine -> Can restart oral if needed. - Cont catapres patch. (5) Alcohol dependence: Plan: See above (6) Hepatitis C: Plan: Chronic, previously seen by ID in 2019 and was offered treatment, however declined at that time. Reportedly has received hep A and B vaccines. Had alcoholic hepatitis earlier this admission but LFTs normalized. Patient with prior h/o drug abuse and had been incarcerated for illicit drugs in the past. (7) Hypertensive urgency: Plan: early in the hospital stay, likely due to severe agitation from DTs resolved (8) Hypomagnesemia: Plan: replaced resolved (9) PUD (peptic ulcer disease): Plan: cont PPI duodenal bulb ulcer on recent EGD [facility] (10) Sphenoid sinusitis: Plan: as seen on MRI brain rocephin/doxy for Lyme should suffice no residual URI symptoms at this time no fevers (11) Learning disabilities: Plan: see scanned neuropsych testing done in the early Plan: DVT proph - Lovenox 40 mg SQ daily Bonnie Morris, pt's sister -- [phone] -- she resides in [place] - updated earlier in the hospital stay as well as 01/09/22 extensive discussion had regarding my concerns about prognosis, nutrition, etc. Shefali Cavazos - daughter - [phone] extensively updated by phone 01/11/22 she is interested in being her father's POA as she is local in [place] and is next of kin her Aunt Bonnie (pt's sister) is ok with Shefali being POA discussed how to get POA paperwork Shefali understands that what we currently see with her father may be permanent (ie - dementia, Wernicke's, etc) Dispo - SNF long-term vs. [facility] vs[facility] memory unit. PT/OT ordered as he is much more alert and able to move around and participate. Admission and Anticipated Discharge Date Admission Date: December 23, 2021 Subjective More cooperative today Review of Systems Review of Systems: General: No malaise no weakness Neck: No tenderness no pain HEENT: No eye discharge no ear discharge Chest: No chest pain, no palpitation GI: Not distended, no nausea no vomiting Extremities: No edema no tenderness Neurology: No headache no weakness Psychiatric: No depression no anxiety Physical Exam Physical Exam: General: Alert oriented x3, well-nourished Neck: No lymphadenopathy, supple Respiratory: Lungs are clear to auscultation no chest abnormality Cardiovascular: Regular rate and rhythm no murmur no gallop vegetation Abdomen: Soft bowel sounds active Extremities: No edema no tenderness Skin: No jaundice no rash Neurology: Alert oriented x3 no acute distress moves all extremities Psychiatry mood and affect appropriate Constitutional: WD/WN, vitals as above Eyes: PERRL, conjunctivae normal, anicteric sclerae EOM intact bilaterally; no conjunctival abnormality ENMT: external ear and nose normal, oropharynx normal Nose: + external nose abnormality (NGT in place) Mouth: + oral mucosal abnormality (very dry tongue and mouth) Neck: trachea midline, no thyromegaly normal visual inspection Respiratory: normal respiratory effort, lungs clear to auscultation no respiratory distress Cardiovascular: RRR, no murmur, no edema Chest (Breasts): Chest: normal inspection of chest Gastrointestinal (Abdomen): normal bowel sounds, soft, nontender, no hepatosplenomegaly Inspection/Auscultation: abdomen normal to inspection; abdomen not distended Musculoskeletal: no cyanosis or clubbing, extremities motor strength 5/5 Extremities: extremities normal to inspection; no cyanosis and no clubbing Skin: no rashes, warm and dry Neurologic: moves all extremities, awake and + confused Psychiatric: Orientation: alert, oriented to person and cooperative; + not oriented to place and + not oriented to time Eye Contact: + fair eye contact Genitourinary: no penis abnormality (Young cath in place) Lymphatic: no lymphedema Results & Data Results & Data ([facility]) Vital Signs (Past 12 Hours) Vital Signs Temp Pulse Pulse Resp BP Pulse Ox 01/17/22 11:06 80 01/17/22 11:05 36.5 C 80 18 117/75 97 01/17/22 07:16 36.3 C L 78 16 116/77 94 01/17/22 04:00 36.6 C 72 18 117/79 93 PG Care Time/CCT Total # of Minutes Spent Total Time Spent with Patient: Total time spent is greater than 50% in coordination of care (as documented) at patient's floor/unit and/or counseling patient: Coding Level of Care Code 70503 Subseq Hosp Care Lvl 2 Diagnoses Encephalopathy G93.40 Delirium tremens F10.231 Positive Lyme disease serology R76.8 Hypertension I10 Alcohol dependence F10.251 Complication of substance-induced condition: with hallucinations Substance use status: alcohol-induced psychotic disorder Hepatitis C B19.20 Hypertensive urgency I16.0 Hypomagnesemia E83.42 PUD (peptic ulcer disease) K27.9 Sphenoid sinusitis J32.3 Learning disabilities F81.9 (1) Alcohol dependence Complication of substance-induced condition: with hallucinations Substance use status: alcohol-induced psychotic disorder Qualified Code(s): 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
[2022-01-17] MEDS: QUEtiapine FUMARATE 25 MG TABLET PO SCH ×2 (15:33→20:31)
[2022-01-17] MEDS ORDERED: MICONAZOLE NITRATE POWDER 43 GM EXT PRN (17:31)
[2022-01-17] MEDS: ENOXAPARIN INJ 40 MG/0.4 ML SYR SQ SCH (20:40)
[2022-01-17] MEDS: LORazepam 2 MG/1 ML VIAL IV PRN (23:01)
[2022-01-18] MEDS: CHECK CLONIDINE PATCH PLACEMENT SCH ×2 (00:04→16:12)
[2022-01-18] MEDS: DOXYCYCLINE HYCLATE 100 MG CAP PO SCH ×2 (05:57→19:06)
[2022-01-18] MEDS: LORazepam 2 MG/1 ML VIAL IV PRN ×2 (07:47→12:15)
[2022-01-18] MEDS: METOPROLOL TARTRATE 25 MG TAB PO SCH ×2 (07:47→21:21)
[2022-01-18] MEDS: FOLIC ACID 1 MG TAB PO SCH (07:47)
[2022-01-18] MEDS: THIAMINE HCL 100 MG TAB PO SCH ×2 (07:49→21:20)
[2022-01-18] MEDS: MULTI VIT W/MINERALS LIQUID 15 ML UDP GT SCH (07:49)
[2022-01-18] MEDS: LANSOPRAZOLE 30 MG SOLTAB PO SCH (07:49)
[2022-01-18] MEDS: SENNOSIDES 8.8 MG/5 ML UDC PO SCH ×2 (07:50→21:20)
[2022-01-18] MEDS: POTASSIUM CHLORIDE PWD 20 MEQ PACK PO SCH ×2 (07:50→21:09)
--- NOTE | 2022-01-18 13:06 | Hospitalist Progress Note ---
Date of Service January 18, 2022 Assessment & Plan (1) Encephalopathy: Plan: Does not seem patient encephalopathic, mostly patient suffering from underlying dementia in setting of chronic alcoholism Some days patient more reliable cooperative and his responses make sense that there is no Follow-up with psychiatry recommendation Pending place (2) Delirium tremens: Plan: Resolved. s/p ICU stay for his DTs - required Precedex drip, IV ativan frequently, etc. s/p high-dose IV thiamine for numerous days. (3) Positive Lyme disease serology: Plan: Western blot results -- IgM negative; IgG very positive with nearly all bands positive. this would suggest early disseminated Lyme disease or later stage Lyme. since IgM was negative we are not dealing with acute/early stage Lyme. s/p 15 days of IV rocephin --- converted to PO doxy 100mg BID x 14 days this would provide a total of 28 days of abx therapy for ?? chronic Lyme. (4) Hypertension: Plan: BP today is 130/90. - Stop IV beta angelita for oral - Stop IV hydralazine -> Can restart oral if needed. - Cont catapres patch. (5) Alcohol dependence: Plan: See above (6) Hepatitis C: Plan: Chronic, previously seen by ID in 2019 and was offered treatment, however declined at that time. Reportedly has received hep A and B vaccines. Had alcoholic hepatitis earlier this admission but LFTs normalized. Patient with prior h/o drug abuse and had been incarcerated for illicit drugs in the past. (7) Hypertensive urgency: Plan: early in the hospital stay, likely due to severe agitation from DTs resolved (8) Hypomagnesemia: Plan: replaced resolved (9) PUD (peptic ulcer disease): Plan: cont PPI duodenal bulb ulcer on recent EGD by [facility] (10) Sphenoid sinusitis: Plan: as seen on MRI brain rocephin/doxy for Lyme should suffice no residual URI symptoms at this time no fevers (11) Learning disabilities: Plan: see scanned neuropsych testing done in the early Plan: DVT proph - Lovenox 40 mg SQ daily Bonnie Morris, pt's sister -- [phone] -- she resides in [place] - updated earlier in the hospital stay as well as 01/09/22 extensive discussion had regarding my concerns about prognosis, nutrition, etc. Shefali Cavazos - daughter - [phone] extensively updated by phone 01/11/22 she is interested in being her father's POA as she is local in [place] and is next of kin her Aunt Bonnie (pt's sister) is ok with Shefali being POA discussed how to get POA paperwork Sehfali understands that what we currently see with her father may be permanent (ie - dementia, Wernicke's, etc) Dispo - SNF long-term vs. [facility] vs[facility]. PT/OT ordered as he is much more alert and able to move around and participate. Admission and Anticipated Discharge Date Admission Date: December 23, 2021 Subjective Today, patient did not communicate to me Physical Exam Physical Exam: General: Alert oriented x3, well-nourished Neck: No lymphadenopathy, supple Respiratory: Lungs are clear to auscultation no chest abnormality Cardiovascular: Regular rate and rhythm no murmur no gallop vegetation Abdomen: Soft bowel sounds active Extremities: No edema no tenderness Skin: No jaundice no rash Neurology: Alert oriented x3 no acute distress moves all extremities Psychiatry mood and affect appropriate Constitutional: WD/WN, vitals as above Eyes: PERRL, conjunctivae normal, anicteric sclerae EOM intact bilaterally; no conjunctival abnormality ENMT: external ear and nose normal, oropharynx normal Nose: + external nose abnormality (NGT in place) Mouth: + oral mucosal abnormality (very dry tongue and mouth) Neck: trachea midline, no thyromegaly normal visual inspection Respiratory: normal respiratory effort, lungs clear to auscultation no respiratory distress Cardiovascular: RRR, no murmur, no edema Chest (Breasts): Chest: normal inspection of chest Gastrointestinal (Abdomen): normal bowel sounds, soft, nontender, no hepatosplenomegaly Inspection/Auscultation: abdomen normal to inspection; abdomen not distended Musculoskeletal: no cyanosis or clubbing, extremities motor strength 5/5 Extremities: extremities normal to inspection; no cyanosis and no clubbing Skin: no rashes, warm and dry Neurologic: moves all extremities, awake and + confused Psychiatric: Orientation: alert, oriented to person and cooperative; + not oriented to place and + not oriented to time Eye Contact: + fair eye contact Genitourinary: no penis abnormality (Young cath in place) Lymphatic: no lymphedema Results & Data Results & Data ([facility]) Vital Signs (Past 12 Hours) Vital Signs Temp Pulse Resp BP Pulse Ox 01/18/22 08:03 36.5 C 81 20 145/89 H 99 PG Care Time/CCT Total # of Minutes Spent Total Time Spent with Patient: Total time spent is greater than 50% in coordination of care (as documented) at patient's floor/unit and/or counseling patient: Coding Level of Care Code 88148 Subseq Hosp Care Lvl 1 Diagnoses Encephalopathy G93.40 Delirium tremens F10.231 Positive Lyme disease serology R76.8 Hypertension I10 Alcohol dependence F10.251 Complication of substance-induced condition: with hallucinations Substance use status: alcohol-induced psychotic disorder Hepatitis C B19.20 Hypertensive urgency I16.0 Hypomagnesemia E83.42 PUD (peptic ulcer disease) K27.9 Sphenoid sinusitis J32.3 Learning disabilities F81.9 (1) Alcohol dependence Complication of substance-induced condition: with hallucinations Substance use status: alcohol-induced psychotic disorder Qualified Code(s): 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
[2022-01-18] MEDS: QUEtiapine FUMARATE 25 MG TABLET PO SCH ×2 (16:10→21:08)
[2022-01-18] MEDS ORDERED: OLANZapine 10 MG/2.1 ML SDV IM PRN (16:21)
[2022-01-18] MEDS: ENOXAPARIN INJ 40 MG/0.4 ML SYR SQ SCH (21:07)
[2022-01-19] MEDS: CHECK CLONIDINE PATCH PLACEMENT SCH ×3 (00:31→16:34)
[2022-01-19] MEDS: DOXYCYCLINE HYCLATE 100 MG CAP PO SCH ×2 (06:24→17:40)
[2022-01-19] MEDS: METOPROLOL TARTRATE 25 MG TAB PO SCH ×2 (07:44→19:46)
[2022-01-19] MEDS: LANSOPRAZOLE 30 MG SOLTAB PO SCH (07:45)
[2022-01-19] MEDS: THIAMINE HCL 100 MG TAB PO SCH ×2 (07:46→19:49)
[2022-01-19] MEDS: FOLIC ACID 1 MG TAB PO SCH (07:46)
[2022-01-19] MEDS: POTASSIUM CHLORIDE PWD 20 MEQ PACK PO SCH ×2 (07:47→19:48)
[2022-01-19] MEDS: SENNOSIDES 8.8 MG/5 ML UDC PO SCH ×2 (07:48→19:46)
[2022-01-19] MEDS: MULTI VIT W/MINERALS LIQUID 15 ML UDP GT SCH (07:48)
[2022-01-19] MEDS: QUEtiapine FUMARATE 25 MG TABLET PO SCH ×2 (16:35→19:48)
--- NOTE | 2022-01-19 16:43 | Hospitalist Progress Note ---
Date of Service January 19, 2022 Assessment & Plan (1) Encephalopathy: Plan: Does not seem patient encephalopathic, mostly patient suffering from underlying dementia in the setting of chronic alcoholism Some days patient more reliable cooperative and his responses make sense but somewhat dazed patient more agitated and aggressive Follow-up with psychiatry recommendation Pending place (2) Delirium tremens: Plan: Resolved. s/p ICU stay for his DTs - required Precedex drip, IV ativan frequently, etc. s/p high-dose IV thiamine for numerous days. (3) Positive Lyme disease serology: Plan: Western blot results -- IgM negative; IgG very positive with nearly all bands positive. this would suggest early disseminated Lyme disease or later stage Lyme. since IgM was negative we are not dealing with acute/early stage Lyme. s/p 15 days of IV rocephin --- converted to PO doxy 100mg BID x 14 days this would provide a total of 28 days of abx therapy for ?? chronic Lyme. (4) Hypertension: Plan: Currently fairly controlled (5) Alcohol dependence: Plan: See above (6) Hepatitis C: Plan: Chronic, previously seen by ID in 2019 and was offered treatment, however declined at that time. Reportedly has received hep A and B vaccines. Had alcoholic hepatitis earlier this admission but LFTs normalized. Patient with prior h/o drug abuse and had been incarcerated for illicit drugs in the past. (7) Hypertensive urgency: Plan: early in the hospital stay, likely due to severe agitation from DTs resolved (8) Hypomagnesemia: Plan: replaced resolved (9) PUD (peptic ulcer disease): Plan: cont PPI duodenal bulb ulcer on recent EGD by [facility] (10) Sphenoid sinusitis: Plan: as seen on MRI brain rocephin/doxy for Lyme should suffice no residual URI symptoms at this time no fevers (11) Learning disabilities: Plan: see scanned neuropsych testing done in the early Plan: DVT proph - Lovenox 40 mg SQ daily Bonnietabitha Morris, pt's sister -- [phone] -- she resides in [place] - Shefali Cavazos - daughter - [phone] extensively updated by phone 01/11/22 she is interested in being her father's POA as she is local in [place] and is next of kin her Aunt Bonnie (pt's sister) is ok with Shefali being POA Shefali understands that what we currently see with her father may be permanent (ie - dementia, Wernicke's, etc) Dispo -pending placement Admission and Anticipated Discharge Date Admission Date: December 23, 2021 Subjective Answers simple questions with yes or no Physical Exam Physical Exam: General: Alert oriented x3, well-nourished Neck: No lymphadenopathy, supple Respiratory: Lungs are clear to auscultation no chest abnormality Cardiovascular: Regular rate and rhythm no murmur no gallop vegetation Abdomen: Soft bowel sounds active Extremities: No edema no tenderness Skin: No jaundice no rash Neurology: Alert oriented x3 no acute distress moves all extremities Psychiatry mood and affect appropriate Constitutional: WD/WN, vitals as above Eyes: PERRL, conjunctivae normal, anicteric sclerae EOM intact bilaterally; no conjunctival abnormality ENMT: external ear and nose normal, oropharynx normal Nose: + external nose abnormality (NGT in place) Mouth: + oral mucosal abnormality (very dry tongue and mouth) Neck: trachea midline, no thyromegaly normal visual inspection Respiratory: normal respiratory effort, lungs clear to auscultation no respiratory distress Cardiovascular: RRR, no murmur, no edema Chest (Breasts): Chest: normal inspection of chest Gastrointestinal (Abdomen): normal bowel sounds, soft, nontender, no hepatosplenomegaly Inspection/Auscultation: abdomen normal to inspection; abdomen not distended Musculoskeletal: no cyanosis or clubbing, extremities motor strength 5/5 Extremities: extremities normal to inspection; no cyanosis and no clubbing Skin: no rashes, warm and dry Neurologic: moves all extremities, awake and + confused Psychiatric: Orientation: alert, oriented to person and cooperative; + not oriented to place and + not oriented to time Eye Contact: + fair eye contact Genitourinary: no penis abnormality (Young cath in place) Lymphatic: no lymphedema Results & Data Results & Data ([facility]) Vital Signs (Past 12 Hours) Vital Signs Temp Pulse Resp BP Pulse Ox 01/19/22 15:24 36.8 C 75 16 150/94 H 94 01/19/22 07:40 36.6 C 75 16 107/67 96 PG Care Time/CCT Total # of Minutes Spent Total Time Spent with Patient: Total time spent is greater than 50% in coordination of care (as documented) at patient's floor/unit and/or counseling patient: Coding Level of Care Code 21724 Subseq Hosp Care Lvl 2 Diagnoses Encephalopathy G93.40 Delirium tremens F10.231 Positive Lyme disease serology R76.8 Hypertension I10 Alcohol dependence F10.251 Complication of substance-induced condition: with hallucinations Substance use status: alcohol-induced psychotic disorder Hepatitis C B19.20 Hypertensive urgency I16.0 Hypomagnesemia E83.42 PUD (peptic ulcer disease) K27.9 Sphenoid sinusitis J32.3 Learning disabilities F81.9 (1) Alcohol dependence Complication of substance-induced condition: with hallucinations Substance use status: alcohol-induced psychotic disorder Qualified Code(s): 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
[2022-01-19] MEDS: ENOXAPARIN INJ 40 MG/0.4 ML SYR SQ SCH (19:46)
[2022-01-20] MEDS: CHECK CLONIDINE PATCH PLACEMENT SCH ×3 (01:48→15:27)
[2022-01-20] MEDS: DOXYCYCLINE HYCLATE 100 MG CAP PO SCH ×3 (05:25→17:39)
[2022-01-20] MEDS: SENNOSIDES 8.8 MG/5 ML UDC PO SCH ×2 (09:51→19:47)
[2022-01-20] MEDS: POTASSIUM CHLORIDE PWD 20 MEQ PACK PO SCH ×2 (09:51→19:46)
[2022-01-20] MEDS: MULTI VIT W/MINERALS LIQUID 15 ML UDP GT SCH (09:51)
[2022-01-20] MEDS: FOLIC ACID 1 MG TAB PO SCH (09:59)
[2022-01-20] MEDS: METOPROLOL TARTRATE 25 MG TAB PO SCH ×2 (09:59→19:48)
[2022-01-20] MEDS: THIAMINE HCL 100 MG TAB PO SCH ×2 (10:00→19:48)
[2022-01-20] MEDS: LANSOPRAZOLE 30 MG SOLTAB PO SCH (11:09)
[2022-01-20] MEDS ORDERED: cloNIDine HCL 0.1 MG/24 HR TRANSDERM SYS TD SCH (12:00)
[2022-01-20] MEDS: QUEtiapine FUMARATE 25 MG TABLET PO SCH ×2 (15:25→19:47)
--- NOTE | 2022-01-20 17:24 | Hospitalist Progress Note ---
Date of Service January 20, 2022 Assessment & Plan (1) Encephalopathy: Plan: Does not seem patient encephalopathic, mostly patient suffering from underlying dementia in the setting of chronic alcoholism Some days patient more reliable cooperative and his responses make sense but somewhat dazed patient more agitated and aggressive Follow-up with psychiatry recommendation Pending placement (2) Delirium tremens: Plan: Resolved. s/p ICU stay for his DTs - required Precedex drip, IV ativan frequently, etc. s/p high-dose IV thiamine for numerous days. (3) Positive Lyme disease serology: Plan: Western blot results -- IgM negative; IgG very positive with nearly all bands positive. this would suggest early disseminated Lyme disease or later stage Lyme. since IgM was negative we are not dealing with acute/early stage Lyme. s/p 15 days of IV rocephin --- converted to PO doxy 100mg BID x 14 days this would provide a total of 28 days of abx therapy for ?? chronic Lyme. (4) Hypertension: Plan: Currently fairly controlled (5) Alcohol dependence: Plan: See above (6) Hepatitis C: Plan: Chronic, previously seen by ID in 2019 and was offered treatment, however declined at that time. Reportedly has received hep A and B vaccines. Had alcoholic hepatitis earlier this admission but LFTs normalized. Patient with prior h/o drug abuse and had been incarcerated for illicit drugs in the past. (7) Hypertensive urgency: Plan: early in the hospital stay, likely due to severe agitation from DTs resolved (8) Hypomagnesemia: Plan: replaced resolved (9) PUD (peptic ulcer disease): Plan: cont PPI duodenal bulb ulcer on recent EGD by [facility] (10) Sphenoid sinusitis: Plan: as seen on MRI brain rocephin/doxy for Lyme should suffice no residual URI symptoms at this time no fevers (11) Learning disabilities: Plan: see scanned neuropsych testing done in the early Plan: DVT proph - Lovenox 40 mg SQ daily Bonnietabitha Morris, pt's sister -- [phone] -- she resides in [place] - Shefali Cavazos - daughter - [phone] extensively updated by phone 01/11/22 she is interested in being her father's POA as she is local in [place] and is next of kin her Aunt Bonnie (pt's sister) is ok with Shefali being POA Shefali understands that what we currently see with her father may be permanent (ie - dementia, Wernicke's, etc) Dispo -pending placement Admission and Anticipated Discharge Date Admission Date: December 23, 2021 Subjective Cooperative today Review of Systems Review of Systems: General: No malaise no weakness Neck: No tenderness no pain HEENT: No eye discharge no ear discharge Chest: No chest pain, no palpitation GI: Not distended, no nausea no vomiting Extremities: No edema no tenderness Neurology: No headache no weakness Psychiatric: No depression no anxiety Physical Exam Physical Exam: General: Alert oriented x1, well-nourished Neck: No lymphadenopathy, supple Respiratory: Lungs are clear to auscultation no chest abnormality Cardiovascular: Regular rate and rhythm no murmur no gallop vegetation Abdomen: Soft bowel sounds active Extremities: No edema no tenderness Skin: No jaundice no rash Neurology: Alert oriented x3 no acute distress moves all extremities Psychiatry mood and affect appropriate Constitutional: WD/WN, vitals as above Eyes: PERRL, conjunctivae normal, anicteric sclerae EOM intact bilaterally; no conjunctival abnormality ENMT: external ear and nose normal, oropharynx normal Nose: + external nose abnormality (NGT in place) Mouth: + oral mucosal abnormality (very dry tongue and mouth) Neck: trachea midline, no thyromegaly normal visual inspection Respiratory: normal respiratory effort, lungs clear to auscultation no respiratory distress Cardiovascular: RRR, no murmur, no edema Chest (Breasts): Chest: normal inspection of chest Gastrointestinal (Abdomen): normal bowel sounds, soft, nontender, no hepatosplenomegaly Inspection/Auscultation: abdomen normal to inspection; abdomen not distended Musculoskeletal: no cyanosis or clubbing, extremities motor strength 5/5 Extremities: extremities normal to inspection; no cyanosis and no clubbing Skin: no rashes, warm and dry Neurologic: moves all extremities, awake and + confused Psychiatric: Orientation: alert, oriented to person and cooperative; + not oriented to place and + not oriented to time Eye Contact: + fair eye contact Genitourinary: no penis abnormality (Young cath in place) Lymphatic: no lymphedema Results & Data Results & Data ([facility]) Vital Signs (Past 12 Hours) Vital Signs Temp Pulse Pulse Resp BP BP Pulse Ox 01/20/22 15:45 37.1 C 76 16 138/89 97 01/20/22 08:10 36.4 C L 81 18 148/80 H 95 PG Care Time/CCT Total # of Minutes Spent Total Time Spent with Patient: Total time spent is greater than 50% in coordination of care (as documented) at patient's floor/unit and/or counseling patient: Coding Level of Care Code 16268 Subseq Hosp Care Lvl 1 Diagnoses Encephalopathy G93.40 Delirium tremens F10.231 Positive Lyme disease serology R76.8 Hypertension I10 Alcohol dependence F10.251 Complication of substance-induced condition: with hallucinations Substance use status: alcohol-induced psychotic disorder Hepatitis C B19.20 Hypertensive urgency I16.0 Hypomagnesemia E83.42 PUD (peptic ulcer disease) K27.9 Sphenoid sinusitis J32.3 Learning disabilities F81.9 (1) Alcohol dependence Complication of substance-induced condition: with hallucinations Substance use status: alcohol-induced psychotic disorder Qualified Code(s): 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
[2022-01-20] MEDS: ENOXAPARIN INJ 40 MG/0.4 ML SYR SQ SCH (19:46)
[2022-01-21] MEDS: CHECK CLONIDINE PATCH PLACEMENT SCH ×2 (00:24→07:36)
--- NOTE | 2022-01-21 06:19 | Communication Note ---
Date of Service: January 21, 2022 Interim progress reviewed. No Zyprexa IM since am of 01/19/22. Seroquel dose 12.5 mg pm meal added 01/17/22, hs dose 25 mg. CM working on placement. No additional recs at this time.
[2022-01-21] MEDS: METOPROLOL TARTRATE 25 MG TAB PO SCH ×2 (07:37→19:48)
[2022-01-21] MEDS: LANSOPRAZOLE 30 MG SOLTAB PO SCH (07:37)
[2022-01-21] MEDS: FOLIC ACID 1 MG TAB PO SCH (07:37)
[2022-01-21] MEDS: MULTI VIT W/MINERALS LIQUID 15 ML UDP GT SCH (07:37)
[2022-01-21] MEDS: THIAMINE HCL 100 MG TAB PO SCH ×2 (07:38→19:47)
[2022-01-21] MEDS: SENNOSIDES 8.8 MG/5 ML UDC PO SCH ×2 (07:38→19:47)
[2022-01-21] MEDS: POTASSIUM CHLORIDE PWD 20 MEQ PACK PO SCH ×2 (07:38→19:48)
[2022-01-21] MEDS: QUEtiapine FUMARATE 25 MG TABLET PO SCH ×2 (16:26→19:49)
--- NOTE | 2022-01-21 19:04 | Hospitalist Progress Note ---
Date of Service January 21, 2022 Assessment & Plan (1) Encephalopathy: Plan: Does not seem patient encephalopathic, mostly patient suffering from underlying dementia in the setting of chronic alcoholism Some days patient more reliable cooperative and his responses make sense but somewhat dazed patient more agitated and aggressive Follow-up with psychiatry recommendation Pending placement (2) Delirium tremens: Plan: Resolved. s/p ICU stay for his DTs - required Precedex drip, IV ativan frequently, etc. s/p high-dose IV thiamine for numerous days. (3) Positive Lyme disease serology: Plan: Western blot results -- IgM negative; IgG very positive with nearly all bands positive. this would suggest early disseminated Lyme disease or later stage Lyme. since IgM was negative we are not dealing with acute/early stage Lyme. s/p 15 days of IV rocephin --- converted to PO doxy 100mg BID x 14 days this would provide a total of 28 days of abx therapy for ?? chronic Lyme. (4) Hypertension: Plan: Currently fairly controlled (5) Alcohol dependence: Plan: See above (6) Hepatitis C: Plan: Chronic, previously seen by ID in 2019 and was offered treatment, however declined at that time. Reportedly has received hep A and B vaccines. Had alcoholic hepatitis earlier this admission but LFTs normalized. Patient with prior h/o drug abuse and had been incarcerated for illicit drugs in the past. (7) Hypertensive urgency: Plan: early in the hospital stay, likely due to severe agitation from DTs resolved (8) Hypomagnesemia: Plan: replaced resolved (9) PUD (peptic ulcer disease): Plan: cont PPI duodenal bulb ulcer on recent EGD by [facility] (10) Sphenoid sinusitis: Plan: as seen on MRI brain rocephin/doxy for Lyme should suffice no residual URI symptoms at this time no fevers (11) Learning disabilities: Plan: see scanned neuropsych testing done in the early Plan: DVT proph - Lovenox 40 mg SQ daily Bonnietabitha Morris, pt's sister -- [phone] -- she resides in [place] - Shefali Cavazos - daughter - [phone] extensively updated by phone 01/11/22 she is interested in being her father's POA as she is local in [place] and is next of kin her Aunt Bonnie (pt's sister) is ok with Shefali being POA Shefali understands that what we currently see with her father may be permanent (ie - dementia, Wernicke's, etc) Dispo -pending placement Admission and Anticipated Discharge Date Admission Date: December 23, 2021 Subjective Cooperative today Review of Systems Review of Systems: General: No malaise no weakness Neck: No tenderness no pain HEENT: No eye discharge no ear discharge Chest: No chest pain, no palpitation GI: Not distended, no nausea no vomiting Extremities: No edema no tenderness Neurology: No headache no weakness Psychiatric: No depression no anxiety Physical Exam Physical Exam: General: Alert oriented x1, well-nourished Neck: No lymphadenopathy, supple Respiratory: Lungs are clear to auscultation no chest abnormality Cardiovascular: Regular rate and rhythm no murmur no gallop vegetation Abdomen: Soft bowel sounds active Extremities: No edema no tenderness Skin: No jaundice no rash Neurology: Alert oriented x3 no acute distress moves all extremities Psychiatry mood and affect appropriate Constitutional: WD/WN, vitals as above Eyes: PERRL, conjunctivae normal, anicteric sclerae EOM intact bilaterally; no conjunctival abnormality ENMT: external ear and nose normal, oropharynx normal Nose: + external nose abnormality (NGT in place) Mouth: + oral mucosal abnormality (very dry tongue and mouth) Neck: trachea midline, no thyromegaly normal visual inspection Respiratory: normal respiratory effort, lungs clear to auscultation no respiratory distress Cardiovascular: RRR, no murmur, no edema Chest (Breasts): Chest: normal inspection of chest Gastrointestinal (Abdomen): normal bowel sounds, soft, nontender, no hepatosplenomegaly Inspection/Auscultation: abdomen normal to inspection; abdomen not distended Musculoskeletal: no cyanosis or clubbing, extremities motor strength 5/5 Extremities: extremities normal to inspection; no cyanosis and no clubbing Skin: no rashes, warm and dry Neurologic: moves all extremities, awake and + confused Psychiatric: Orientation: alert, oriented to person and cooperative; + not oriented to place and + not oriented to time Eye Contact: + fair eye contact Genitourinary: no penis abnormality (Young cath in place) Lymphatic: no lymphedema Results & Data Results & Data ([facility]) Vital Signs (Past 12 Hours) Vital Signs Temp Pulse Resp BP Pulse Ox 01/21/22 16:28 36.6 C 78 18 145/87 H 97 01/21/22 07:22 36.6 C 72 20 151/95 H 98 PG Care Time/CCT Total # of Minutes Spent Total Time Spent with Patient: Total time spent is greater than 50% in coordination of care (as documented) at patient's floor/unit and/or counseling patient: Coding Level of Care Code 08154 Subseq Hosp Care Lvl 1 Diagnoses Encephalopathy G93.40 Delirium tremens F10.231 Positive Lyme disease serology R76.8 Hypertension I10 Alcohol dependence F10.251 Complication of substance-induced condition: with hallucinations Substance use status: alcohol-induced psychotic disorder Hepatitis C B19.20 Hypertensive urgency I16.0 Hypomagnesemia E83.42 PUD (peptic ulcer disease) K27.9 Sphenoid sinusitis J32.3 Learning disabilities F81.9 (1) Alcohol dependence Complication of substance-induced condition: with hallucinations Substance use status: alcohol-induced psychotic disorder Qualified Code(s): 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
[2022-01-21] MEDS: ENOXAPARIN INJ 40 MG/0.4 ML SYR SQ SCH (19:49)
[2022-01-21] MEDS: cloNIDine HCL 0.1 MG/24 HR TRANSDERM SYS TD SCH (19:59)
[2022-01-22] MEDS: CHECK CLONIDINE PATCH PLACEMENT SCH ×4 (01:27→23:18)
[2022-01-22] MEDS: THIAMINE HCL 100 MG TAB PO SCH ×2 (08:58→20:43)
[2022-01-22] MEDS: METOPROLOL TARTRATE 25 MG TAB PO SCH ×2 (08:58→20:40)
[2022-01-22] MEDS: POTASSIUM CHLORIDE PWD 20 MEQ PACK PO SCH ×2 (08:59→20:41)
[2022-01-22] MEDS: MULTI VIT W/MINERALS LIQUID 15 ML UDP GT SCH (09:00)
[2022-01-22] MEDS: LANSOPRAZOLE 30 MG SOLTAB PO SCH (09:00)
[2022-01-22] MEDS: SENNOSIDES 8.8 MG/5 ML UDC PO SCH ×2 (09:00→20:43)
[2022-01-22] MEDS: FOLIC ACID 1 MG TAB PO SCH (09:00)
--- NOTE | 2022-01-22 13:39 | Hospitalist Progress Note ---
Date of Service January 22, 2022 Assessment & Plan (1) Cognitive impairment: Plan: Pt initially admitted for complicated EtOH withdrawal, diagnostically c/w encephalopathy/hypoactive delirium superimposed on dementia based on prior CT imaging with age-related microvascular changes and poor performance on mini-cog testing in 2019 - Currently on Seroquel 25mg q HS and tolerating well - Psych has been involved in his care, appreciate recommendations - He is for placement to SNF for which case management is involved (2) Encephalopathy: Plan: RESOLVED and now at what seems to be his baseline mentation - Lyme Western Blot IgG VERY positive. Western blot IgM negative.Doubt Lyme was contributing as he has received adequate treatment for this. - TSH, B12 levels both wnl. - head CT at admission with atrophy/ventriculomegaly but no ICH, CVA, etc. - RPR is nonreactive. - Ammonia levels wnl. - MRI brain 01/03 neg for acute findings (3) Delirium tremens: Plan: RESOLVED. - s/p ICU stay for his DTs - required Precedex drip, IV ativan frequently, etc. - s/p high-dose IV thiamine for numerous days. (4) Positive Lyme disease serology: Plan: - Western blot results -- IgM negative; IgG very positive with nearly all bands positive. - this would suggest early disseminated Lyme disease or later stage Lyme. since IgM was negative we are not dealing with acute/early stage Lyme. - s/p 15 days of IV rocephin -- converted to PO doxy 100mg BID x 14 days - this would provide a total of 28 days of abx therapy for ?? chronic Lyme. (5) Hypertension: Plan: - Experienced hypertensive urgency earlier in hospitalization likely d/t agitation from acute withdrawal - Currently fairly controlled (6) Alcohol dependence: Plan: - Heavy EtOH use prior to admission, subsequently went through acute withdrawal/DTs requiring ICU stay, etc. (7) Hepatitis C: Plan: - Chronic, previously seen by ID in 2019 and was offered treatment, however declined at that time. - Reportedly has received hep A and B vaccines. - Had alcoholic hepatitis earlier this admission but LFTs normalized. - Patient with prior h/o drug abuse and had been incarcerated for illicit drugs in the past. (8) PUD (peptic ulcer disease): Plan: - cont PPI - duodenal bulb ulcer [facility] (9) Sphenoid sinusitis: Plan: as seen on MRI brain rocephin/doxy for Lyme should suffice no residual URI symptoms at this time no fevers (10) Learning disabilities: Plan: see scanned neuropsych testing done in the early Plan: DVT proph - Lovenox 40 mg SQ daily Bonnie Morris, pt's sister -- [phone] -- she resides in [place] - Shefali Cavazos - daughter - [phone] extensively updated by phone 01/11/22 she is interested in being her father's POA as she is local in [place] and is next of kin her Aunt Bonnie (pt's sister) is ok with Shefali being POA Shefali understands that what we currently see with her father may be permanent (ie - dementia, Wernicke's, etc) Dispo - pending placement, per CM note from 01/20, no facility has accepted yet Admission and Anticipated Discharge Date Admission Date: December 23, 2021 Subjective Patient seen on rounds today. He is resting in bed, offers no new complaints/concerns at this time. Pt remains hospitalized awaiting placement. Review of Systems Review of Systems: All systems reviewed and are unremarkable except as noted in HPI and below. Denies fever, chills, fatigue, headache, nasal congestion, sore throat, cough, chest pain, shortness of breath, palpitations, orthopnea, PND, abdominal pain, n/v/d, constipation, dysuria, hematuria, frequency, back pain, joint pain or swelling, easy bruising or bleeding, skin lesions or rashes. Physical Exam Physical Exam: GENERAL: 66 yo well-developed, well-nourished WM. NAD. LUNGS: Clear to auscultation bilaterally. No W/R/R. CARDIOVASCULAR: Regular rate and rhythm. No M/G/R. No JVD. ABDOMEN: Soft, non-tender and non-distended. BS normal x 4 quad. EXTREMITIES: No edema. Non-tender. Peripheral pulses +2/4. NEUROLOGIC: A&O x3. No focal neurological deficits. PSYCHIATRIC: Cooperative. Appropriate mood and affect. SKIN: Warm, dry, intact. No rashes or lesions. Results & Data Results & Data ([facility]) Vital Signs (Past 12 Hours) Vital Signs Temp Pulse Resp BP Pulse Ox 01/22/22 07:05 36.5 C 71 16 130/79 94 PG Care Time/CCT Total # of Minutes Spent Total Time Spent with Patient: Total time spent is greater than 50% in coordination of care (as documented) at patient's floor/unit and/or counseling patient: Coding Level of Care Code 73988 Subseq Hosp Care Lvl 1 Diagnoses Encephalopathy G93.40 Delirium tremens F10.231 Positive Lyme disease serology R76.8 Hypertension I10 Alcohol dependence F10.251 Complication of substance-induced condition: with hallucinations Substance use status: alcohol-induced psychotic disorder Hepatitis C B19.20 PUD (peptic ulcer disease) K27.9 Sphenoid sinusitis J32.3 Learning disabilities F81.9 Cognitive impairment R41.89 (1) Alcohol dependence Complication of substance-induced condition: with hallucinations Substance use status: alcohol-induced psychotic disorder Qualified Code(s): 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
[2022-01-22] MEDS: QUEtiapine FUMARATE 25 MG TABLET PO SCH ×2 (16:12→20:42)
[2022-01-23] MEDS: OLANZapine 10 MG/2.1 ML SDV IM PRN (03:00)
[2022-01-23] MEDS: CHECK CLONIDINE PATCH PLACEMENT SCH ×2 (08:05→16:31)
[2022-01-23] MEDS: MULTI VIT W/MINERALS LIQUID 15 ML UDP GT SCH (08:06)
[2022-01-23] MEDS: SENNOSIDES 8.8 MG/5 ML UDC PO SCH ×2 (08:06→20:51)
[2022-01-23] MEDS: POTASSIUM CHLORIDE PWD 20 MEQ PACK PO SCH ×2 (08:06→20:50)
[2022-01-23] MEDS: METOPROLOL TARTRATE 25 MG TAB PO SCH ×2 (08:06→20:48)
[2022-01-23] MEDS: THIAMINE HCL 100 MG TAB PO SCH ×2 (08:06→20:49)
[2022-01-23] MEDS: FOLIC ACID 1 MG TAB PO SCH (08:06)
[2022-01-23] MEDS: LANSOPRAZOLE 30 MG SOLTAB PO SCH (08:06)
--- NOTE | 2022-01-23 13:43 | Hospitalist Progress Note ---
Date of Service January 23, 2022 Assessment & Plan (1) Cognitive impairment: Plan: - Pt initially admitted for complicated EtOH withdrawal, diagnostically c/w encephalopathy/hypoactive delirium superimposed on dementia based on prior CT imaging with age-related microvascular changes and poor performance on mini-cog testing in 2019 - Currently on Seroquel 25mg q HS, will increase to 50mg HS to start tonight 01/23 - Psych has been involved in his care, appreciate recommendations, discussed increase of Seroquel with Dr. Lugo who agreed - He is for placement to SNF for which case management is involved - He does have IM Zyprexa ordered to be utilized as directed for ag itation/aggressive behavior (2) Encephalopathy: Plan: RESOLVED and now at what seems to be his baseline mentation - Lyme Western Blot IgG VERY positive. Western blot IgM negative.Doubt Lyme was contributing as he has received adequate treatment for this. - TSH, B12 levels both wnl. - head CT at admission with atrophy/ventriculomegaly but no ICH, CVA, etc. - RPR is nonreactive. - Ammonia levels wnl. - MRI brain 01/03 neg for acute findings (3) Delirium tremens: Plan: RESOLVED. - s/p ICU stay for his DTs - required Precedex drip, IV ativan frequently, etc. - s/p high-dose IV thiamine for numerous days. (4) Positive Lyme disease serology: Plan: - Western blot results -- IgM negative; IgG very positive with nearly all bands positive. - this would suggest early disseminated Lyme disease or later stage Lyme. since IgM was negative we are not dealing with acute/early stage Lyme. - s/p 15 days of IV rocephin -- converted to PO doxy 100mg BID x 14 days - this would provide a total of 28 days of abx therapy for ?? chronic Lyme. (5) Hypertension: Plan: - Experienced hypertensive urgency earlier in hospitalization likely d/t agitation from acute withdrawal - Currently fairly controlled (6) Alcohol dependence: Plan: - Heavy EtOH use prior to admission, subsequently went through acute withdrawal/DTs requiring ICU stay, etc. (7) Hepatitis C: Plan: - Chronic, previously seen by ID in 2019 and was offered treatment, however declined at that time. - Reportedly has received hep A and B vaccines. - Had alcoholic hepatitis earlier this admission but LFTs normalized. - Patient with prior h/o drug abuse and had been incarcerated for illicit drugs in the past. (8) PUD (peptic ulcer disease): Plan: - cont PPI - duodenal bulb ulcer on recent EGD by [facility] (9) Sphenoid sinusitis: Plan: as seen on MRI brain rocephin/doxy for Lyme should suffice no residual URI symptoms at this time no fevers (10) Learning disabilities: Plan: see scanned neuropsych testing done in the early Plan: DVT proph - Lovenox 40 mg SQ daily Case management is working on placement for this patient; however, multiple difficulties including his behavior primarily as well as his lack of covid vaccination. Apparently the patient and his daughter are concerned about being vaccinated due to his questionable Lyme diagnosis as well as, per his daughter, his "fragile state." I attempted to contact the daughter to discuss in greater detail that the question of his lyme diagnosis is not a contraindication to c ovid vaccination. Regarding behavioral disturbances, will reach out to psych and discuss options to determine if we can make adjustments in medication regimen to help better manage. Unfortunately, pt's daughter is not legally his POA but is his next of kin and would be the primary decision maker by default. I do not believe that this pt has capacity to make his own decisions or sign paperwork to formally and legally appoint someone as POA. I attempted to contact his daughter but go no answer. Bonnie Alexandra, pt's sister -- [phone] -- she resides in [place] - Shefali Cavazos - daughter - [phone] -- attempted to call and provide update she is interested in being her father's POA as she is local in [place] and is next of kin Dispo - pending placement, per no facility has accepted yet Admission and Anticipated Discharge Date Admission Date: December 23, 2021 Subjective Patient seen on rounds today. He is up ambulating around in his room. Currently has a sitter present. Required dose of IM Zyprexa for agitation/aggressive behavior overnight. Review of Systems Review of Systems: All systems reviewed and are unremarkable except as noted in HPI and below. Denies fever, chills, fatigue, headache, nasal congestion, sore throat, cough, chest pain, shortness of breath, palpitations, orthopnea, PND, abdominal pain, n/v/d, constipation, dysuria, hematuria, frequency, back pain, joint pain or swelling, easy bruising or bleeding, skin lesions or rashes. Physical Exam Physical Exam: GENERAL: 66 yo well-developed, well-nourished WM. Awake, alert, but confused. NAD. LUNGS: Clear to auscultation bilaterally. No W/R/R. CARDIOVASCULAR: Regular rate and rhythm. No M/G/R. No JVD. ABDOMEN: Soft, non-tender and non-distended. BS normal x 4 quad. EXTREMITIES: No edema. Non-tender. Peripheral pulses +2/4. NEUROLOGIC: no gross neuro deficits PSYCHIATRIC: Reluctantly cooperative with exam but argumentative and swearing. SKIN: Warm, dry, intact. No rashes or lesions. Results & Data Results & Data ([facility]) Vital Signs (Past 12 Hours) Vital Signs Temp Pulse Resp BP Pulse Ox 01/23/22 06:57 36.6 C 75 16 115/78 98 Laboratory Results None PG Care Time/CCT Total # of Minutes Spent Total Time Spent with Patient: Total time spent is greater than 50% in coordination of care (as documented) at patient's floor/unit and/or counseling patient: Coding Level of Care Code 29275 Subseq Hosp Care Lvl 2 Diagnoses Cognitive impairment R41.89 Encephalopathy G93.40 Delirium tremens F10.231 Positive Lyme disease serology R76.8 Hypertension I10 Alcohol dependence F10.251 Complication of substance-induced condition: with hallucinations Substance use status: alcohol-induced psychotic disorder Hepatitis C B19.20 PUD (peptic ulcer disease) K27.9 Sphenoid sinusitis J32.3 Learning disabilities F81.9 (1) Alcohol dependence Complication of substance-induced condition: with hallucinations Substance use status: alcohol-induced psychotic disorder Qualified Code(s): 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
--- NOTE | 2022-01-23 14:14 | Communication Note ---
Date of Service: January 23, 2022 case discussed with OLIVIA Massey as patient had a period of agitation overnight requiring IM Zyprexa and was more resistant to meds this am, etc. Reviewed VS and current dosing of Zyprexa 12.5 mg evening meal and 25 mg hs. Rec. increase hs dose to 50 mg and monitor.
[2022-01-23] MEDS: QUEtiapine FUMARATE 25 MG TABLET PO SCH ×2 (16:31→20:50)
[2022-01-24] MEDS: CHECK CLONIDINE PATCH PLACEMENT SCH ×4 (00:47→23:28)
[2022-01-24] MEDS: cloNIDine HCL 0.1 MG/24 HR TRANSDERM SYS TD SCH (01:01)
[2022-01-24] MEDS: SENNOSIDES 8.8 MG/5 ML UDC PO SCH ×2 (09:14→21:17)
[2022-01-24] MEDS: POTASSIUM CHLORIDE PWD 20 MEQ PACK PO SCH ×2 (09:14→21:15)
[2022-01-24] MEDS: THIAMINE HCL 100 MG TAB PO SCH ×2 (09:14→21:15)
[2022-01-24] MEDS: MULTI VIT W/MINERALS LIQUID 15 ML UDP GT SCH (09:14)
[2022-01-24] MEDS: FOLIC ACID 1 MG TAB PO SCH (09:15)
[2022-01-24] MEDS: LANSOPRAZOLE 30 MG SOLTAB PO SCH (09:15)
[2022-01-24] MEDS: METOPROLOL TARTRATE 25 MG TAB PO SCH ×2 (09:15→21:17)
--- NOTE | 2022-01-24 11:56 | Hospitalist Progress Note ---
Date of Service January 24, 2022 Assessment & Plan (1) Cognitive impairment: Plan: - Pt initially admitted for complicated EtOH withdrawal, diagnostically c/w encephalopathy/hypoactive delirium superimposed on dementia based on prior CT imaging with age-related microvascular changes and poor performance on mini-cog testing in 2019 - Currently on Seroquel 50mg HS (uptitrated 01/23 with favorable response) - Psych has been involved in his care. -- Patient does answer questions appropriately although in discussion with psychiatry, his cognition fluctuates day-to-day. They feel he does not have capacity to make decisions - He is for placement to SNF for which case management is involved - He does have IM Zyprexa ordered to be utilized as directed for agitation/aggressive behavior (2) Encephalopathy: Plan: RESOLVED and now at what seems to be his baseline mentation - Lyme Western Blot IgG VERY positive. Western blot IgM negative.Doubt Lyme was contributing as he has received adequate treatment for this. - TSH, B12 levels both wnl. - head CT at admission with atrophy/ventriculomegaly but no ICH, CVA, etc. - RPR is nonreactive. - Ammonia levels wnl. - MRI brain 01/03 neg for acute findings (3) Delirium tremens: Plan: RESOLVED. - s/p ICU stay for his DTs - required Precedex drip, IV ativan frequently, etc. - s/p high-dose IV thiamine for numerous days. (4) Positive Lyme disease serology: Plan: - Western blot results -- IgM negative; IgG very positive with nearly all bands positive. - this would suggest early disseminated Lyme disease or later stage Lyme. since IgM was negative we are not dealing with acute/early stage Lyme. - s/p 15 days of IV rocephin -- converted to PO doxy 100mg BID x 14 days - this would provide a total of 28 days of abx therapy for ?? chronic Lyme. (5) Hypertension: Plan: - Experienced hypertensive urgency earlier in hospitalization likely d/t agitation from acute withdrawal - Currently fairly controlled (6) Alcohol dependence: Plan: - Heavy EtOH use prior to admission, subsequently went through acute withdrawal/DTs requiring ICU stay, etc. (7) Hepatitis C: Plan: - Chronic, previously seen by ID in 2019 and was offered treatment, however declined at that time. - Reportedly has received hep A and B vaccines. - Had alcoholic hepatitis earlier this admission but LFTs normalized. - Patient with prior h/o drug abuse and had been incarcerated for illicit drugs in the past. (8) PUD (peptic ulcer disease): Plan: - cont PPI - duodenal bulb ulcer on recent EGD by [facility] (9) Sphenoid sinusitis: Plan: as seen on MRI brain rocephin/doxy for Lyme should suffice no residual URI symptoms at this time no fevers (10) Learning disabilities: Plan: see scanned neuropsych testing done in the early Plan: DVT proph - Lovenox 40 mg SQ daily Case management is working on placement for this patient; however, multiple difficulties including his behavior primarily as well as his lack of covid v accination. Apparently the patient and his daughter are concerned about being vaccinated due to his questionable Lyme diagnosis as well as, per his daughter, his "fragile state." I attempted to contact the daughter to discuss in greater detail that the question of his lyme diagnosis is not a contraindication to covid vaccination. Regarding behavioral disturbances, will reach out to psych and discuss options to determine if we can make adjustments in medication regimen to help better manage. Unfortunately, pt's daughter is not legally his POA but is his next of kin and would be the primary decision maker by default. I do not believe that this pt has capacity to make his own decisions or sign paperwork to formally and legally appoint someone as POA. I attempted to contact his daughter but go no answer. Bonnie Alexandra, pt's sister -- [phone] -- she resides in [place] - Shefali Cavazos - daughter - [phone] -- attempted to call and provide update she is interested in being her father's POA as she is local in [place] and is next of kin Dispo - pending placement, per no facility has accepted yet Admission and Anticipated Discharge Date Admission Date: December 23, 2021 Subjective Patient seen on daily rounds today. Quite pleasant and cooperative. Is documented that he has been having agitation and combative behavior. Psychiatry following. Now on Seroquel with up titration. Seems to be doing well. No issues overnight. Denies fevers, chills, chest pain, shortness of breath, abdominal pain, nausea or vomiting. Nursing voices no complaints or concerns. Review of Systems Review of Systems: All systems reviewed and are unremarkable except as noted in HPI and below Denies fevers, chills, headache, nasal congestion, sore throat, cough, chest pain, shortness of breath, palpitations, orthopnea, PND, abdominal pain, nausea, vomiting, diarrhea, constipation, dysuria, hematuria, frequency, back pain, joint pain or swelling, easy bruising or bleeding, skin lesions or rashes. Physical Exam Physical Exam: General: Resting comfortably in his bedside chair. NAD. HEENT: Head is AT/NC. Buccal mucosa is moist and pink Neck: No JVD. Negative hepatojugular reflex Cardiac: RRR with 1/6 SHAYLEE Lungs: CTA without W/R/R Abdomen: Normoactive X4. Soft and nontender in all quadrants. Extremities: No peripheral clubbing cyanosis or edema Neuro: A&O X4. Cranial nerves II through XII are grossly intact. No focal neuro deficits Skin: No obvious skin lesions or rashes Psych: Pleasant and cooperative Results & Data Results & Data ([facility]) Vital Signs (Past 12 Hours) Vital Signs Temp Pulse Resp BP Pulse Ox 01/24/22 07:04 36.4 C L 65 16 148/75 H 97 Laboratory Results No lab data today PG Care Time/CCT Total # of Minutes Spent Total Time Spent with Patient: Total time spent is greater than 50% in coordination of care (as documented) at patient's floor/unit and/or counseling patient: Coding Level of Care Code 20770 Subseq Hosp Care Lvl 1 Diagnoses Cognitive impairment R41.89 Encephalopathy G93.40 Delirium tremens F10.231 Positive Lyme disease serology R76.8 Hypertension I10 Alcohol dependence F10.251 Complication of substance-induced condition: with hallucinations Substance use status: alcohol-induced psychotic disorder Hepatitis C B19.20 PUD (peptic ulcer disease) K27.9 Sphenoid sinusitis J32.3 Learning disabilities F81.9 (1) Alcohol dependence Complication of substance-induced condition: with hallucinations Substance use status: alcohol-induced psychotic disorder Qualified Code(s): 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
[2022-01-24] MEDS: QUEtiapine FUMARATE 25 MG TABLET PO SCH ×2 (16:08→21:16)
[2022-01-24] MEDS: POLYETHYLENE (MIRALAX) 17 GM PACK PO PRN (18:09)
[2022-01-25] MEDS: CHECK CLONIDINE PATCH PLACEMENT SCH ×3 (08:25→23:42)
[2022-01-25] MEDS: METOPROLOL TARTRATE 25 MG TAB PO SCH ×2 (08:26→21:00)
[2022-01-25] MEDS: LANSOPRAZOLE 30 MG SOLTAB PO SCH (08:26)
[2022-01-25] MEDS: FOLIC ACID 1 MG TAB PO SCH (08:26)
[2022-01-25] MEDS: THIAMINE HCL 100 MG TAB PO SCH ×2 (08:27→21:00)
[2022-01-25] MEDS: MULTI VIT W/MINERALS LIQUID 15 ML UDP GT SCH (08:27)
[2022-01-25] MEDS: SENNOSIDES 8.8 MG/5 ML UDC PO SCH ×2 (08:27→20:59)
[2022-01-25] MEDS: POTASSIUM CHLORIDE PWD 20 MEQ PACK PO SCH ×2 (08:27→20:59)
--- NOTE | 2022-01-25 12:30 | Psychiatric Progress Note ---
Date of Service January 25, 2022 Impression / Recommendations Impression This is a 66 yo old admitted for complicated alcohol withdrawal. Diagnostically consistent with possible ongoing encephalopathy/hypoactive delirium, unclear etiology as he should be outside window for complicated alcohol withdrawal and showing more steady improvement yet has been getting some ativan intermittently which could contribute to confusion, superimposed on dementia versus now primary dementia picture with fluctuations in cognition and periods of behavioral disturbance. Of note he had head CT findings with age-related and microvascular changes and poor performance on mini-cog testing in 2019. 01/25/22: Significant improvement from previous assessments ~1 week ago. Dressed, better attention to hygiene, sitting out of bed in a car and able to walk briefly with improved balance. Tolerating higher dose of seroquel without any signs for EPS or side effects. Remains unaware of the year and with word finding difficulty most suggestive of cognitive disorder. Continues to lack decision making capacity regarding disposition given cognitive impairments and fluctuations in cognition. (1) Alcohol use disorder: (2) Cognitive impairment: -c/w seroquel 12.5 mg before dinner and 50 mg qhs -Continue with delirium prevention measures: raising blinds during the day, closing at night, frequent re-orientation, contact with family/friends, explaining procedures/nursing care measures prior to physical contact, correct any hearing and visual impairments -For behavioral emergency: olanzapine 2.5 mg IM x 1 (DO NOT exceed 10mg per 24 hours, check EKG if IM dose required, NEVER co-administer with IM or IV benzodiazepines, if olanzapine is given wait at least 60 minutes before administration of lorazepam). Interval History Identifying Information 66 yo man with history of alcohol use disorder, severe, learning disabilities, HTN and history of prior incarcerations and preference to live socially isolated admitted medically for complicated alcohol withdrawal and concern for DT. Psychiatry was consulted for medication recommendations given ongoing confusion and periods of agitation. Chief Complaint "I'm good". Review of Systems Notes reports stable sleep and appetite Subjective Subjective Patient was seen & assessed and interval progress reviewed. Did not require any IM medications since 01/22/22. No side effects from higher dose of seroquel. He is oriented to being in the hospital, city and month but thinks the year is 2013 and doesn't know the President. 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 Denies cravings for alcohol. Recalls longest period of sobriety in the past was for 9 years while incarcerated. States he doesn't want to drink again as it is a waste of money. He stated his desire to continue working with physical therapy to get stronger. Eventually hopes to return to his RV in [place]. He could not describe how he would get groceries there (seemed to have word finding difficulty in trying to describe possibility trying to buy a car?) nor how he would care for himself noting instead ("there are 80 year olds there they help me"). Procedures Performed Operation Date: 01/01/22 17:00 Actual Procedures p Esophagogastroduodenoscopy - Jim Olivier MD Physical Exam Psychiatric Orientation: alert, oriented to person, oriented to place and cooperative; + not oriented to time Apperance: appropriately dressed and appropriately groomed Eye Contact: good eye contact Motor Behavior: n EPS (good ROM, no evidence dystonia) and n tremor Speech: normal rate/rhythm/volume of speech Affect: euthymic affect Mood: no depressed mood, no anxious mood and no irritable mood Thought Process: + circumstantial thought process and + looseness of associations Thought Content: reality based without delusions Cognition: remote memory grossly intact (can recall his sister's name ), attention grossly intact and language grossly intact; + recent memory not intact Insight: + limited insight Judgement: + impaired judgement Vital Signs (Past 24 Hours) Last Vital Signs Temp 36.4 C L 01/25/22 07:02 Pulse 98 H 01/25/22 07:02 Resp 16 01/25/22 07:02 BP 126/89 01/25/22 07:02 Pulse Ox 96 01/25/22 07:02 Results & Data ([facility]) Current Inpatient Medications Current Inpatient Medications: Current Inpatient Medications Clonidine HCl (Clonidine Hcl 0.1 Mg/24 Hr Transderm Sys) 1 patch TD Q7D [facility] Stop: 02/20/22 20:59 Last Admin: 01/24/22 01:01 Dose: 1 patch Documented by: Cyclobenzaprine HCl (Cyclobenzaprine Hcl 10 Mg Tab) 10 mg PO TID PRN PRN Reason: Muscle Spasm Stop: 02/16/22 10:23 Folic Acid (Folic Acid 1 Mg Tab) 1 mg PO QAM [facility] Stop: 02/10/22 08:59 Last Admin: 01/25/22 08:26 Dose: 1 mg Documented by: Lansoprazole (Lansoprazole 30 Mg Soltab) 30 mg PO QAM [facility] Stop: 02/02/22 09:29 Last Admin: 01/25/22 08:26 Dose: 30 mg Documented by: Lorazepam (Lorazepam 2 Mg/1 Ml Vial) 1 mg IV Q4H PRN PRN Reason: Agitation Stop: 02/04/22 17:49 Last Admin: 01/18/22 12:15 Dose: 1 mg Documented by: Metoprolol Tartrate (Metoprolol Tartrate 25 Mg Tab) 12.5 mg PO BID [facility] Stop: 02/13/22 20:59 Last Admin: 01/25/22 08:26 Dose: 12.5 mg Documented by: Miconazole Nitrate (Miconazole Nitrate Powder 43 Gm) 1 appln EXT PRN PRN PRN Reason: excoriated areas Stop: 02/16/22 17:30 Miscellaneous (Remove Clonidine Patch) 1 ea N/A Q7D [facility] Stop: 02/19/22 11:58 Last Admin: 01/20/22 11:27 Dose: Not Given Documented by: Miscellaneous (Remove Clonidine Patch) 1 ea N/A CQWK [facility] Stop: 02/27/22 20:59 Miscellaneous (Check Clonidine Patch Placement) 1 ea N/A QS [facility] Stop: 02/21/22 00:00 Last Admin: 01/25/22 08:25 Dose: 1 ea Documented by: Multivitamins/Minerals (Multi Vit W/Minerals Liquid 15 Ml Udp) 15 ml GT QAM [facility] Stop: 02/01/22 08:59 Last Admin: 01/25/22 08:27 Dose: 15 ml Documented by: Olanzapine (Olanzapine 10 Mg/2.1 Ml Sdv) 2.5 mg IM HS PRN PRN Reason: Agitation/confusion Stop: 02/08/22 20:59 Last Admin: 01/23/22 03:00 Dose: 2.5 mg Documented by: Olanzapine (Olanzapine 10 Mg/2.1 Ml Sdv) 5 mg IM Q2HWA PRN PRN Reason: Agitation Last Admin: 01/19/22 08:22 Dose: 5 mg Documented by: Polyethylene Glycol (Polyethylene (Miralax) 17 Gm Pack) 17 gm PO DAILY PRN PRN Reason: CONSTIPATION Stop: 02/01/22 10:05 Last Admin: 01/24/22 18:09 Dose: 17 gm Documented by: Potassium Chloride (Potassium Chloride Pwd 20 Meq Pack) 20 meq PO BID [facility] Stop: 02/11/22 10:14 Last Admin: 01/25/22 08:27 Dose: 20 meq Documented by: Quetiapine Fumarate (Quetiapine Fumarate 25 Mg Tablet) 12.5 mg PO DAILYBD [facility] Stop: 02/16/22 15:29 Last Admin: 01/24/22 16:08 Dose: 12.5 mg Documented by: Quetiapine Fumarate (Quetiapine Fumarate 25 Mg Tablet) 50 mg PO HS [facility] Stop: 02/22/22 20:59 Last Admin: 01/24/22 21:16 Dose: 50 mg Documented by: Sennosides (Sennosides 8.8 Mg/5 Ml Udc) 8.8 mg PO BID [facility] Stop: 02/01/22 10:29 Last Admin: 01/25/22 08:27 Dose: 8.8 mg Documented by: Thiamine HCl (Thiamine Hcl 100 Mg Tab) 200 mg PO BID [facility] Stop: 02/10/22 08:59 Last Admin: 01/25/22 08:27 Dose: 200 mg Documented by:
--- NOTE | 2022-01-25 13:58 | Hospitalist Progress Note ---
Date of Service January 25, 2022 Assessment & Plan (1) Cognitive impairment: Plan: - Pt initially admitted for complicated EtOH withdrawal, diagnostically c/w encephalopathy/hypoactive delirium superimposed on dementia based on prior CT imaging with age-related microvascular changes and poor performance on mini-cog testing in 2019 - Currently on Seroquel 50mg HS (uptitrated 01/23 with favorable response) - Psych has been involved in his care. * Patient does answer questions appropriately although in discussion with psychiatry, his cognition fluctuates day-to-day. They feel he does not have capacity to make decisions - He is for placement to SNF for which case management is involved - He does have IM Zyprexa ordered to be utilized as directed for agitation/aggressive behavior (2) Encephalopathy: Plan: RESOLVED and now at what seems to be his baseline mentation - Lyme Western Blot IgG VERY positive. Western blot IgM negative.Doubt Lyme was contributing as he has received adequate treatment for this. - TSH, B12 levels both wnl. - head CT at admission with atrophy/ventriculomegaly but no ICH, CVA, etc. - RPR is nonreactive. - Ammonia levels wnl. - MRI brain 01/03 neg for acute findings (3) Delirium tremens: Plan: RESOLVED. - s/p ICU stay for his DTs - required Precedex drip, IV ativan frequently, etc. - s/p high-dose IV thiamine for numerous days. (4) Positive Lyme disease serology: Plan: - Western blot results -- IgM negative; IgG very positive with nearly all bands positive. - this would suggest early disseminated Lyme disease or later stage Lyme. since IgM was negative we are not dealing with acute/early stage Lyme. - s/p 15 days of IV rocephin -- converted to PO doxy 100mg BID x 14 days - this provided a total of 28 days of abx therapy for ?? chronic Lyme. (5) Hypertension: Plan: - Experienced hypertensive urgency earlier in hospitalization likely d/t agitation from acute withdrawal - Currently fairly controlled (6) Alcohol dependence: Plan: - Heavy EtOH use prior to admission, subsequently went through acute withdrawal/DTs requiring ICU stay, etc. (7) Hepatitis C: Plan: - Chronic, previously seen by ID in 2019 and was offered treatment, however declined at that time. - Reportedly has received hep A and B vaccines. - Had alcoholic hepatitis earlier this admission but LFTs normalized. - Patient with prior h/o drug abuse and had been incarcerated for illicit drugs in the past. (8) PUD (peptic ulcer disease): Plan: - cont PPI - duodenal bulb ulcer on recent EGD by [facility] (9) Sphenoid sinusitis: Plan: as seen on MRI brain rocephin/doxy for Lyme should suffice no residual URI symptoms at this time no fevers (10) Learning disabilities: Plan: see scanned neuropsych testing done in the early Plan: DVT proph - Lovenox 40 mg SQ daily Case management is working on placement for this patient; however, multiple difficulties including his behavior primarily as well as his lack of covid vaccination. Apparently the patient and his daughter are concerned about being vaccinated due to his questionable Lyme diagnosis as well as, per his daughter, his "fragile state." I attempted to contact the daughter to discuss in greater detail that the question of his lyme diagnosis is not a contraindication to covid vaccination. Regarding behavioral disturbances, will reach out to psych and discuss options to determine if we can make adjustments in medication regimen to help better manage. Unfortunately, pt's daughter is not legally his POA but is his next of kin and would be the primary decision maker by default. I do not believe that this pt has capacity to make his own decisions (which has been confirmed by psych) or sign paperwork to formally and legally appoint someone as POA. Bonnie Alexandra, pt's sister -- [phone] -- she resides in [place] - Shefali Cavazos - daughter - [phone] -- attempted to call and provide update she is interested in being her father's POA as she is local in [place] and is next of kin Dispo - pending placement, per no facility has accepted yet Admission and Anticipated Discharge Date Admission Date: December 23, 2021 Subjective Patient seen on daily rounds today. Seems more pleasant/cooperative since recent uptitration of Seroquel to 50mg done on 01/23. Denies fevers, chills, chest pain, shortness of breath, abdominal pain, nausea or vomiting. Nursing voices no complaints or concerns. Review of Systems Review of Systems: All systems reviewed and are unremarkable except as noted in HPI and below Denies fevers, chills, headache, nasal congestion, sore throat, cough, chest pain, shortness of breath, palpitations, orthopnea, PND, abdominal pain, nausea, vomiting, diarrhea, constipation, dysuria, hematuria, frequency, back pain, joint pain or swelling, easy bruising or bleeding, skin lesions or rashes. Physical Exam Physical Exam: GENERAL: 66 yo well-developed, well-nourished WM. Awake, alert, but pleasantly confused. NAD. LUNGS: Clear to auscultation bilaterally. No W/R/R. CARDIOVASCULAR: Regular rate and rhythm. No M/G/R. ABDOMEN: Soft, non-tender and non-distended. BS normal x 4 quad. EXTREMITIES: No edema. Non-tender. Peripheral pulses +2/4. NEUROLOGIC: no gross neuro deficits PSYCHIATRIC: Pleasant, cooperative. SKIN: Warm, dry, intact. No rashes or lesions. Results & Data Results & Data ([facility]) Vital Signs (Past 12 Hours) Vital Signs Temp Pulse Resp BP Pulse Ox 01/25/22 07:02 36.4 C L 98 H 16 126/89 96 PG Care Time/CCT Total # of Minutes Spent Total Time Spent with Patient: Total time spent is greater than 50% in coordination of care (as documented) at patient's floor/unit and/or counseling patient: Coding Level of Care Code 07632 Subseq Hosp Care Lvl 1 Diagnoses Cognitive impairment R41.89 Encephalopathy G93.40 Delirium tremens F10.231 Positive Lyme disease serology R76.8 Hypertension I10 Alcohol dependence F10.251 Complication of substance-induced condition: with hallucinations Substance use status: alcohol-induced psychotic disorder Hepatitis C B19.20 PUD (peptic ulcer disease) K27.9 Sphenoid sinusitis J32.3 Learning disabilities F81.9 (1) Alcohol dependence Complication of substance-induced condition: with hallucinations Substance use status: alcohol-induced psychotic disorder Qualified Code(s): 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
[2022-01-25] MEDS: QUEtiapine FUMARATE 25 MG TABLET PO SCH ×2 (15:48→21:01)
[2022-01-25] MEDS: POLYETHYLENE (MIRALAX) 17 GM PACK PO PRN (15:51)
[2022-01-26] MEDS: CHECK CLONIDINE PATCH PLACEMENT SCH ×2 (07:49→16:28)
[2022-01-26] MEDS: LANSOPRAZOLE 30 MG SOLTAB PO SCH (07:50)
[2022-01-26] MEDS: FOLIC ACID 1 MG TAB PO SCH (07:50)
[2022-01-26] MEDS: THIAMINE HCL 100 MG TAB PO SCH ×2 (07:50→22:06)
[2022-01-26] MEDS: SENNOSIDES 8.8 MG/5 ML UDC PO SCH ×2 (07:50→22:06)
[2022-01-26] MEDS: METOPROLOL TARTRATE 25 MG TAB PO SCH ×2 (07:50→22:09)
[2022-01-26] MEDS: POTASSIUM CHLORIDE PWD 20 MEQ PACK PO SCH ×2 (07:50→22:06)
[2022-01-26] MEDS: MULTI VIT W/MINERALS LIQUID 15 ML UDP GT SCH (07:50)
--- NOTE | 2022-01-26 11:09 | Hospitalist Progress Note ---
Date of Service January 26, 2022 Assessment & Plan (1) Cognitive impairment: Plan: - Pt initially admitted for complicated EtOH withdrawal, diagnostically c/w encephalopathy/hypoactive delirium superimposed on dementia based on prior CT imaging with age-related microvascular changes and poor performance on mini-cog testing in 2019 - Currently on Seroquel 50mg HS (uptitrated 01/23 PM with favorable response) - Psych has been involved in his care. * Patient does answer questions appropriately although in discussion with psychiatry, his cognition fluctuates day-to-day. They feel he does not have capacity to make decisions - He is for placement to SNF for which case management is involved--unfortunately, pt is considered a target and will have to follow through this process to get him placed - He does have IM Zyprexa ordered to be utilized as directed for agitation/aggressive behavior but has not needed it since 299 on 01/23 (2) Encephalopathy: Plan: RESOLVED and now at what seems to be his baseline mentation - Lyme Western Blot IgG VERY positive. Western blot IgM negative.Doubt Lyme was contributing as he has received adequate treatment for this. - TSH, B12 levels both wnl. - head CT at admission with atrophy/ventriculomegaly but no ICH, CVA, etc. - RPR is nonreactive. - Ammonia levels wnl. - MRI brain 01/03 neg for acute findings (3) Delirium tremens: Plan: RESOLVED. - s/p ICU stay for his DTs - required Precedex drip, IV ativan frequently, etc. - s/p high-dose IV thiamine for numerous days. (4) Positive Lyme disease serology: Plan: - Western blot results -- IgM negative; IgG very positive with nearly all bands positive. - this would suggest early disseminated Lyme disease or later stage Lyme. since IgM was negative we are not dealing with acute/early stage Lyme. - s/p 15 days of IV rocephin -- converted to PO doxy 100mg BID x 14 days - this provided a total of 28 days of abx therapy for ?? chronic Lyme. (5) Hypertension: Plan: - Experienced hypertensive urgency earlier in hospitalization likely d/t agitation from acute withdrawal - Currently fairly controlled (6) Alcohol dependence: Plan: - Heavy EtOH use prior to admission, subsequently went through acute withdrawal/DTs requiring ICU stay, etc. (7) Hepatitis C: Plan: - Chronic, previously seen by ID in 2019 and was offered treatment, however declined at that time. - Reportedly has received hep A and B vaccines. - Had alcoholic hepatitis earlier this admission but LFTs normalized. - Patient with prior h/o drug abuse and had been incarcerated for illicit drugs in the past. (8) PUD (peptic ulcer disease): Plan: - cont PPI - duodenal bulb ulcer on recent EGD by [facility] (9) Learning disabilities: Plan: see scanned neuropsych testing done in the early Plan: DVT proph - Lovenox 40 mg SQ daily Case management is working on placement for this patient; however, multiple difficulties including his behavior primarily as well as his lack of covid vaccination. Daughter, Shefali, has given consent for him to receive COVID vaccine. Will administer today 01/26. In addition, pt is considered a target, CM is working through this process. Unfortunately, pt's daughter is not legally his POA but is his next of kin and would be the primary decision maker by default. I do not believe that this pt has capacity to make his own decisions (which has been confirmed by psych) or sign paperwork to formally and legally appoint someone as POA. Bonnie Morris, pt's sister -- [phone] -- she resides in [place] Shefali Cavazos - daughter - [phone] -- provided update on 01/26 she is interested in being her father's POA as she is local in [place] and is next of kin Dispo - pending placement, per CM no facility has accepted yet Admission and Anticipated Discharge Date Admission Date: December 23, 2021 Subjective Patient seen on daily rounds today. Seems more pleasant/cooperative since recent uptitration of Seroquel to 50mg done on 01/23. Denies fevers, chills, chest pain, shortness of breath, abdominal pain, nausea or vomiting. Has not had any issues overnight per nursing. His only mention is regarding constipation. RN reports it was documented that he had a BM yesterday. Review of Systems Review of Systems: All systems reviewed and are unremarkable except as noted in HPI and below Denies fevers, chills, headache, nasal congestion, sore throat, cough, chest pain, shortness of breath, palpitations, orthopnea, PND, abdominal pain, nausea, vomiting, diarrhea, constipation, dysuria, hematuria, frequency, back pain, joint pain or swelling, easy bruising or bleeding, skin lesions or rashes. Physical Exam Physical Exam: GENERAL: 66 yo well-developed, well-nourished WM. Awake, alert, but pleasantly confused. NAD. LUNGS: Clear to auscultation bilaterally. No W/R/R. CARDIOVASCULAR: Regular rate and rhythm. No M/G/R. ABDOMEN: Soft, non-tender and non-distended. BS normal x 4 quad. EXTREMITIES: No edema. Non-tender. Peripheral pulses +2/4. NEUROLOGIC: no gross neuro deficits PSYCHIATRIC: Pleasant, cooperative. SKIN: Warm, dry, intact. No rashes or lesions. Results & Data Results & Data ([facility]) Vital Signs (Past 12 Hours) Vital Signs Temp Pulse Resp BP Pulse Ox 01/26/22 07:01 36.4 C L 72 16 123/82 95 PG Care Time/CCT Total # of Minutes Spent Total Time Spent with Patient: Total time spent is greater than 50% in coordination of care (as documented) at patient's floor/unit and/or counseling patient: Coding Level of Care Code 41437 Subseq Hosp Care Lvl 1 Diagnoses Cognitive impairment R41.89 Encephalopathy G93.40 Delirium tremens F10.231 Positive Lyme disease serology R76.8 Hypertension I10 Alcohol dependence F10.251 Complication of substance-induced condition: with hallucinations Substance use status: alcohol-induced psychotic disorder Hepatitis C B19.20 PUD (peptic ulcer disease) K27.9 Learning disabilities F81.9 (1) Alcohol dependence Complication of substance-induced condition: with hallucinations Substance use status: alcohol-induced psychotic disorder Qualified Code(s): 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
[2022-01-26] MEDS ORDERED: COVID-19 VAC,AD26(JANSSEN)/PF 0.5 ML SYR IM ONE (12:00)
[2022-01-26] MEDS: POLYETHYLENE (MIRALAX) 17 GM PACK PO PRN (16:16)
[2022-01-26] MEDS: QUEtiapine FUMARATE 25 MG TABLET PO SCH ×2 (16:28→22:06)
[2022-01-27] MEDS: CHECK CLONIDINE PATCH PLACEMENT SCH ×3 (00:51→15:04)
[2022-01-27] MEDS: LANSOPRAZOLE 30 MG SOLTAB PO SCH (09:55)
[2022-01-27] MEDS: FOLIC ACID 1 MG TAB PO SCH (09:55)
[2022-01-27] MEDS: METOPROLOL TARTRATE 25 MG TAB PO SCH ×2 (09:55→22:04)
[2022-01-27] MEDS: SENNOSIDES 8.8 MG/5 ML UDC PO SCH ×2 (09:56→22:00)
[2022-01-27] MEDS: POTASSIUM CHLORIDE PWD 20 MEQ PACK PO SCH ×2 (09:56→22:00)
[2022-01-27] MEDS: MULTI VIT W/MINERALS LIQUID 15 ML UDP GT SCH (09:56)
--- NOTE | 2022-01-27 11:55 | Hospitalist Progress Note ---
Date of Service January 27, 2022 Assessment & Plan (1) Cognitive impairment: Plan: - Pt initially admitted for complicated EtOH withdrawal, diagnostically c/w encephalopathy/hypoactive delirium superimposed on dementia based on prior CT imaging with age-related microvascular changes and poor performance on mini-cog testing in 2019 - Currently on Seroquel 50mg HS (uptitrated 01/23 PM with favorable response) - Psych has been involved in his care. * Patient does answer questions appropriately although in discussion with psychiatry, his cognition fluctuates day-to-day. They feel he does not have capacity to make decisions - He is for placement to SNF for which case management is involved--unfortunately, pt is considered a target and will have to follow through this process to get him placed - He does have IM Zyprexa ordered to be utilized as directed for agitation/aggressive behavior but has not needed it since 299 on 01/23 (2) Encephalopathy: Plan: RESOLVED and now at what seems to be his baseline mentation - Lyme Western Blot IgG VERY positive. Western blot IgM negative.Doubt Lyme was contributing as he has received adequate treatment for this. - TSH, B12 levels both wnl. - head CT at admission with atrophy/ventriculomegaly but no ICH, CVA, etc. - RPR is nonreactive. - Ammonia levels wnl. - MRI brain 01/03 neg for acute findings (3) Delirium tremens: Plan: RESOLVED. - s/p ICU stay for his DTs - required Precedex drip, IV ativan frequently, etc. - s/p high-dose IV thiamine for numerous days. (4) Positive Lyme disease serology: Plan: - Western blot results -- IgM negative; IgG very positive with nearly all bands positive. - this would suggest early disseminated Lyme disease or later stage Lyme. since IgM was negative we are not dealing with acute/early stage Lyme. - s/p 15 days of IV rocephin -- converted to PO doxy 100mg BID x 14 days - this provided a total of 28 days of abx therapy for ?? chronic Lyme. (5) Hypertension: Plan: - Experienced hypertensive urgency earlier in hospitalization likely d/t agitation from acute withdrawal - Currently fairly controlled (6) Alcohol dependence: Plan: - Heavy EtOH use prior to admission, subsequently went through acute withdrawal/DTs requiring ICU stay, etc. (7) Hepatitis C: Plan: - Chronic, previously seen by ID in 2019 and was offered treatment, however declined at that time. - Reportedly has received hep A and B vaccines. - Had alcoholic hepatitis earlier this admission but LFTs normalized. - Patient with prior h/o drug abuse and had been incarcerated for illicit drugs in the past. (8) PUD (peptic ulcer disease): Plan: - cont PPI - duodenal bulb ulcer on recent EGD by [facility] (9) Learning disabilities: Plan: see scanned neuropsych testing done in the early Plan: DVT proph - Lovenox 40 mg SQ daily Case management is working on placement for this patient; however, multiple difficulties including his behavior primarily as well as his lack of covid vaccination. Daughter, Shefali, has gave consent for him to receive COVID vaccine which was administered 01/26. In addition, pt is considered a target, CM is working through this process. Unfortunately, pt's daughter is not legally his POA but is his next of kin and would be the primary decision maker by default. I do not believe that this pt has capacity to make his own decisions (which has been confirmed by psych) or sign paperwork to formally and legally appoint someone as POA. Bonnie Alexanrda, pt's sister -- [phone] -- she resides in [place] Shefali Cavazos - daughter - [phone] -- provided update on 01/26 she is interested in being her father's POA as she is local in [place] and is next of kin Dispo - pending placement, per CM no facility has accepted yet Admission and Anticipated Discharge Date Admission Date: December 23, 2021 Subjective Patient seen on daily rounds today. Continues to be pleasant and cooperative. Denies fevers, chills, chest pain, shortness of breath, abdominal pain, nausea or vomiting. Review of Systems Review of Systems: All systems reviewed and are unremarkable except as noted in HPI and below Denies fevers, chills, headache, nasal congestion, sore throat, cough, chest pain, shortness of breath, palpitations, orthopnea, PND, abdominal pain, nausea, vomiting, diarrhea, constipation, dysuria, hematuria, frequency, back pain, joint pain or swelling, easy bruising or bleeding, skin lesions or rashes. Physical Exam Physical Exam: GENERAL: 66 yo well-developed, well-nourished WM. Awake, alert, but pleasantly confused. NAD. LUNGS: Clear to auscultation bilaterally. No W/R/R. CARDIOVASCULAR: Regular rate and rhythm. No M/G/R. ABDOMEN: Soft, non-tender and non-distended. BS normal x 4 quad. EXTREMITIES: No edema. Non-tender. Peripheral pulses +2/4. NEUROLOGIC: no gross neuro deficits PSYCHIATRIC: Pleasant, cooperative. SKIN: Warm, dry, intact. No rashes or lesions. Results & Data Results & Data ([facility]) Vital Signs (Past 12 Hours) Vital Signs Temp Pulse Resp BP Pulse Ox 01/27/22 07:23 36.7 C 79 18 150/92 H 96 PG Care Time/CCT Total # of Minutes Spent Total Time Spent with Patient: Total time spent is greater than 50% in coordination of care (as documented) at patient's floor/unit and/or counseling patient: Coding Level of Care Code 86063 Subseq Hosp Care Lvl 1 Diagnoses Cognitive impairment R41.89 Encephalopathy G93.40 Delirium tremens F10.231 Positive Lyme disease serology R76.8 Hypertension I10 Alcohol dependence F10.251 Complication of substance-induced condition: with hallucinations Substance use status: alcohol-induced psychotic disorder Hepatitis C B19.20 PUD (peptic ulcer disease) K27.9 Learning disabilities F81.9 (1) Alcohol dependence Complication of substance-induced condition: with hallucinations Substance use status: alcohol-induced psychotic disorder Qualified Code(s): 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
[2022-01-27] MEDS: THIAMINE HCL 100 MG TAB PO SCH ×2 (13:47→22:00)
[2022-01-27] MEDS ORDERED: ACETAMINOPHEN 325 MG TAB PO PRN (15:26)
[2022-01-27] MEDS: QUEtiapine FUMARATE 25 MG TABLET PO SCH ×2 (15:49→22:00)
[2022-01-28] MEDS: CHECK CLONIDINE PATCH PLACEMENT SCH ×2 (00:40→15:34)
[2022-01-28] MEDS ORDERED: Nursing to Pharmacy Communication SCH (01:30)
[2022-01-28] MEDS: METOPROLOL TARTRATE 25 MG TAB PO SCH ×2 (09:23→21:58)
[2022-01-28] MEDS: FOLIC ACID 1 MG TAB PO SCH (09:24)
[2022-01-28] MEDS: THIAMINE HCL 100 MG TAB PO SCH ×2 (09:24→21:58)
[2022-01-28] MEDS: LANSOPRAZOLE 30 MG SOLTAB PO SCH (09:25)
[2022-01-28] MEDS: SENNOSIDES 8.8 MG/5 ML UDC PO SCH ×2 (09:25→21:59)
[2022-01-28] MEDS: MULTI VIT W/MINERALS LIQUID 15 ML UDP GT SCH (09:26)
[2022-01-28] MEDS: POTASSIUM CHLORIDE PWD 20 MEQ PACK PO SCH ×2 (09:26→21:58)
[2022-01-28] MEDS: cloNIDine HCL 0.1 MG/24 HR TRANSDERM SYS TD SCH (10:11)
--- NOTE | 2022-01-28 10:24 | Hospitalist Progress Note ---
Date of Service January 28, 2022 Assessment & Plan (1) Cognitive impairment: Plan: - Pt initially admitted for complicated EtOH withdrawal, diagnostically c/w encephalopathy/hypoactive delirium superimposed on dementia based on prior CT imaging with age-related microvascular changes and poor performance on mini-cog testing in 2019 - Currently on Seroquel 50mg HS (uptitrated 01/23 PM with favorable response) - Psych has been involved in his care. * Patient does answer questions appropriately although in discussion with psychiatry, his cognition fluctuates day-to-day. They feel he does not have capacity to make decisions - He is for placement to SNF for which case management is involved--unfortunately, pt is considered a target and will have to follow through this process to get him placed - He does have IM Zyprexa ordered to be utilized as directed for agitation/aggressive behavior but has not needed it since 299 on 01/23 (2) Encephalopathy: Plan: RESOLVED and now at what seems to be his baseline mentation - Lyme Western Blot IgG VERY positive. Western blot IgM negative.Doubt Lyme was contributing as he has received adequate treatment for this. - TSH, B12 levels both wnl. - head CT at admission with atrophy/ventriculomegaly but no ICH, CVA, etc. - RPR is nonreactive. - Ammonia levels wnl. - MRI brain 01/03 neg for acute findings (3) Delirium tremens: Plan: RESOLVED. - s/p ICU stay for his DTs - required Precedex drip, IV ativan frequently, etc. - s/p high-dose IV thiamine for numerous days. (4) Positive Lyme disease serology: Plan: - Western blot results -- IgM negative; IgG very positive with nearly all bands positive. - this would suggest early disseminated Lyme disease or later stage Lyme. since IgM was negative we are not dealing with acute/early stage Lyme. - s/p 15 days of IV rocephin -- converted to PO doxy 100mg BID x 14 days - this provided a total of 28 days of abx therapy for ?? chronic Lyme. (5) Hypertension: Plan: - Experienced hypertensive urgency earlier in hospitalization likely d/t agitation from acute withdrawal - Currently fairly controlled (6) Alcohol dependence: Plan: - Heavy EtOH use prior to admission, subsequently went through acute withdrawal/DTs requiring ICU stay, etc. (7) Hepatitis C: Plan: - Chronic, previously seen by ID in 2019 and was offered treatment, however declined at that time. - Reportedly has received hep A and B vaccines. - Had alcoholic hepatitis earlier this admission but LFTs normalized. - Patient with prior h/o drug abuse and had been incarcerated for illicit drugs in the past. (8) PUD (peptic ulcer disease): Plan: - cont PPI - duodenal bulb ulcer on recent EGD by [facility] (9) Learning disabilities: Plan: see scanned neuropsych testing done in the early Plan: DVT proph - Lovenox 40 mg SQ daily Case management is working on placement for this patient; however, multiple difficulties including his behavior primarily as well as his lack of covid vaccination. Daughter, Shefali, has gave consent for him to receive COVID vaccine which was administered 01/26. In addition, pt is considered a target, CM is working through this process. Unfortunately, pt's daughter is not legally his POA but is his next of kin and would be the primary decision maker by default. I do not believe that this pt has capacity to make his own decisions (which has been confirmed by psych) or sign paperwork to formally and legally appoint someone as POA. Bonnie Alexandra, pt's sister -- [phone] -- she resides in [place] Shefali Cavazos - daughter - [phone] -- provided update on 01/26 she is interested in being her father's POA as she is local in [place] and is next of kin Dispo - pending placement, per CM no facility has accepted yet Admission and Anticipated Discharge Date Admission Date: December 23, 2021 Subjective Patient seen on daily rounds today. Continues to be pleasant and cooperative. Denies fevers, chills, chest pain, shortness of breath, abdominal pain, nausea or vomiting. Review of Systems Review of Systems: All systems reviewed and are unremarkable except as noted in HPI and below Denies fevers, chills, headache, nasal congestion, sore throat, cough, chest pain, shortness of breath, palpitations, orthopnea, PND, abdominal pain, nausea, vomiting, diarrhea, constipation, dysuria, hematuria, frequency, back pain, joint pain or swelling, easy bruising or bleeding, skin lesions or rashes. Physical Exam Physical Exam: GENERAL: 66 yo wd/wn WM. Awake, alert, but pleasantly confused. NAD. LUNGS: Clear to auscultation bilaterally. No W/R/R. CARDIOVASCULAR: Regular rate and rhythm. No M/G/R. ABDOMEN: Soft, non-tender and non-distended. BS normal x 4 quad. EXTREMITIES: No edema. Non-tender. Peripheral pulses +2/4. NEUROLOGIC: no gross neuro deficits PSYCHIATRIC: Pleasant, cooperative. SKIN: Warm, dry, intact. No rashes or lesions. Results & Data Results & Data ([facility]) Vital Signs (Past 12 Hours) Vital Signs Temp Pulse Resp BP Pulse Ox 01/28/22 07:12 36.4 C L 76 18 127/86 94 PG Care Time/CCT Total # of Minutes Spent Total Time Spent with Patient: Total time spent is greater than 50% in coordination of care (as documented) at patient's floor/unit and/or counseling patient: Coding Level of Care Code 86702 Subseq Hosp Care Lvl 1 Diagnoses Cognitive impairment R41.89 Encephalopathy G93.40 Delirium tremens F10.231 Positive Lyme disease serology R76.8 Hypertension I10 Alcohol dependence F10.251 Complication of substance-induced condition: with hallucinations Substance use status: alcohol-induced psychotic disorder Hepatitis C B19.20 PUD (peptic ulcer disease) K27.9 Learning disabilities F81.9 (1) Alcohol dependence Complication of substance-induced condition: with hallucinations Substance use status: alcohol-induced psychotic disorder Qualified Code(s): 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
[2022-01-28] MEDS: QUEtiapine FUMARATE 25 MG TABLET PO SCH ×2 (15:40→21:58)
[2022-01-29] MEDS: CHECK CLONIDINE PATCH PLACEMENT SCH ×3 (00:54→15:30)
[2022-01-29] MEDS: SENNOSIDES 8.8 MG/5 ML UDC PO SCH ×2 (08:42→21:13)
[2022-01-29] MEDS: MULTI VIT W/MINERALS LIQUID 15 ML UDP GT SCH (08:42)
[2022-01-29] MEDS: FOLIC ACID 1 MG TAB PO SCH (08:43)
[2022-01-29] MEDS: THIAMINE HCL 100 MG TAB PO SCH ×2 (08:43→21:11)
[2022-01-29] MEDS: LANSOPRAZOLE 30 MG SOLTAB PO SCH (08:44)
[2022-01-29] MEDS: METOPROLOL TARTRATE 25 MG TAB PO SCH ×2 (08:44→21:11)
[2022-01-29] MEDS: POTASSIUM CHLORIDE PWD 20 MEQ PACK PO SCH ×2 (08:45→21:10)
--- NOTE | 2022-01-29 12:59 | Hospitalist Progress Note ---
Date of Service January 29, 2022 Assessment & Plan (1) Cognitive impairment: Plan: - Pt initially admitted for complicated EtOH withdrawal, diagnostically c/w encephalopathy/hypoactive delirium superimposed on dementia based on prior CT imaging with age-related microvascular changes and poor performance on mini-cog testing in 2019 - Currently on Seroquel 50mg HS (uptitrated 01/23 PM with favorable response) - Psych has been involved in his care. * Patient does answer questions appropriately although in discussion with psychiatry, his cognition fluctuates day-to-day. They feel he does not have capacity to make decisions - He is for placement to for which case management is involved--unfortunately, pt is considered a target and will have to follow through this process to get him placed - He does have IM Zyprexa ordered to be utilized as directed for agitation/aggressive behavior but has not needed it since 299 on 01/23 (2) Encephalopathy: Plan: RESOLVED and now at what seems to be his baseline mentation - Lyme Western Blot IgG VERY positive. Western blot IgM negative.Doubt Lyme was contributing as he has received adequate treatment for this. - TSH, B12 levels both wnl. - head CT at admission with atrophy/ventriculomegaly but no ICH, CVA, etc. - RPR is nonreactive. - Ammonia levels wnl. - MRI brain 01/03 neg for acute findings (3) Delirium tremens: Plan: RESOLVED. - s/p ICU stay for his DTs - required Precedex drip, IV ativan frequently, etc. - s/p high-dose IV thiamine for numerous days. (4) Positive Lyme disease serology: Plan: - Western blot results -- IgM negative; IgG very positive with nearly all bands positive. - this would suggest early disseminated Lyme disease or later stage Lyme. since IgM was negative we are not dealing with acute/early stage Lyme. - s/p 15 days of IV rocephin -- converted to PO doxy 100mg BID x 14 days - this provided a total of 28 days of abx therapy for ?? chronic Lyme. (5) Hypertension: Plan: - Experienced hypertensive urgency earlier in hospitalization likely d/t agitation from acute withdrawal - Currently fairly controlled (6) Alcohol dependence: Plan: - Heavy EtOH use prior to admission, subsequently went through acute withdrawal/DTs requiring ICU stay, etc. (7) Hepatitis C: Plan: - Chronic, previously seen by ID in 2019 and was offered treatment, however declined at that time. - Reportedly has received hep A and B vaccines. - Had alcoholic hepatitis earlier this admission but LFTs normalized. - Patient with prior h/o drug abuse and had been incarcerated for illicit drugs in the past. (8) PUD (peptic ulcer disease): Plan: - cont PPI - duodenal bulb ulcer on recent EGD by [facility] (9) Learning disabilities: Plan: see scanned neuropsych testing done in the early Plan: DVT proph - Lovenox 40 mg SQ daily Case management is working on placement for this patient; however, multiple difficulties including his behavior primarily as well as his lack of covid vaccination. Daughter, Shefali, has gave consent for him to receive COVID vaccine which was administered 01/26. In addition, pt is considered a target, CM is working through this process. Unfortunately, pt's daughter is not legally his POA but is his next of kin and would be the primary decision maker by default. I do not believe that this pt has capacity to make his own decisions (which has been confirmed by psych) or sign paperwork to formally and legally appoint someone as POA. Bonnie Alexandra, pt's sister -- [phone] -- she resides in [place] Shefali Cavazos - daughter - [phone] -- provided update on 01/26 she is interested in being her father's POA as she is local in [place] and is next of kin Dispo - pending placement, per CM no facility has accepted yet Admission and Anticipated Discharge Date Admission Date: December 23, 2021 Subjective Patient seen on daily rounds today. Vocalizes no complaints or concerns. He is more withdrawn and his affect is very flat. Per nursing staff, he is very depressed knowing that he now needs to sell all of his possessions and is aware of the plan of placement. He has not had any agitation or combative behavior in days. He vocalizes no significant complaints or concerns Review of Systems Review of Systems: Unobtainable today. Patient does not answer my questions. Very withdrawn. Physical Exam Physical Exam: General: Resting comfortably in his hospital bed. Very poor eye contact. Withdrawn. Limited in his cooperation (lays in bedand is mostly nonverbal today) NAD. HEENT: Head is AT/NC. Buccal mucosa is moist and pink Neck: No JVD. Negative hepatojugular reflex Cardiac: RRR without M/G/R Lungs: CTA without W/R/R Abdomen: Normoactive X4. Soft and nontender in all quadrants. Extremities: No peripheral clubbing cyanosis or edema Neuro: Limited exam today Skin: No obvious skin lesions or rashes Psych: Very flat affect Results & Data Results & Data ([facility]) Vital Signs (Past 12 Hours) Vital Signs Temp Pulse Resp BP Pulse Ox 01/29/22 06:56 37 C 65 16 145/75 H 95 Laboratory Results No lab data today PG Care Time/CCT Total # of Minutes Spent Total Time Spent with Patient: Total time spent is greater than 50% in coordination of care (as documented) at patient's floor/unit and/or counseling patient: Coding Level of Care Code 67264 Subseq Hosp Care Lvl 1 Diagnoses Cognitive impairment R41.89 Encephalopathy G93.40 Delirium tremens F10.231 Positive Lyme disease serology R76.8 Hypertension I10 Alcohol dependence F10.251 Complication of substance-induced condition: with hallucinations Substance use status: alcohol-induced psychotic disorder Hepatitis C B19.20 PUD (peptic ulcer disease) K27.9 Learning disabilities F81.9 (1) Alcohol dependence Complication of substance-induced condition: with hallucinations Substance use status: alcohol-induced psychotic disorder Qualified Code(s): 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
[2022-01-29] MEDS: QUEtiapine FUMARATE 25 MG TABLET PO SCH ×2 (15:29→21:13)
[2022-01-30] MEDS: CHECK CLONIDINE PATCH PLACEMENT SCH ×3 (00:41→15:42)
[2022-01-30] MEDS: METOPROLOL TARTRATE 25 MG TAB PO SCH ×2 (08:37→20:18)
[2022-01-30] MEDS: POTASSIUM CHLORIDE PWD 20 MEQ PACK PO SCH ×2 (08:38→20:18)
[2022-01-30] MEDS: THIAMINE HCL 100 MG TAB PO SCH ×2 (08:39→20:19)
[2022-01-30] MEDS: LANSOPRAZOLE 30 MG SOLTAB PO SCH (08:39)
[2022-01-30] MEDS: SENNOSIDES 8.8 MG/5 ML UDC PO SCH ×2 (08:40→20:19)
[2022-01-30] MEDS: MULTI VIT W/MINERALS LIQUID 15 ML UDP GT SCH (08:40)
[2022-01-30] MEDS: FOLIC ACID 1 MG TAB PO SCH (08:40)
--- NOTE | 2022-01-30 12:52 | Hospitalist Progress Note ---
Date of Service January 30, 2022 Assessment & Plan (1) Cognitive impairment: Plan: - Pt initially admitted for complicated EtOH withdrawal, diagnostically c/w encephalopathy/hypoactive delirium superimposed on dementia based on prior CT imaging with age-related microvascular changes and poor performance on mini-cog testing in 2019 - Currently on Seroquel 50mg HS (uptitrated 01/23 PM with favorable response) - Psych has been involved in his care. * Patient does answer questions appropriately although in discussion with psychiatry, his cognition fluctuates day-to-day. They feel he does not have capacity to make decisions - He is for placement to for which case management is involved--unfortunately, pt is considered a target and will have to follow through this process to get him placed - He does have IM Zyprexa ordered to be utilized as directed for agitation/aggressive behavior but has not needed it since 299 on 01/23 (2) Encephalopathy: Plan: RESOLVED and now at what seems to be his baseline mentation - Lyme Western Blot IgG VERY positive. Western blot IgM negative.Doubt Lyme was contributing as he has received adequate treatment for this. - TSH, B12 levels both wnl. - head CT at admission with atrophy/ventriculomegaly but no ICH, CVA, etc. - RPR is nonreactive. - Ammonia levels wnl. - MRI brain 01/03 neg for acute findings (3) Delirium tremens: Plan: RESOLVED. - s/p ICU stay for his DTs - required Precedex drip, IV ativan frequently, etc. - s/p high-dose IV thiamine for numerous days. (4) Positive Lyme disease serology: Plan: - Western blot results -- IgM negative; IgG very positive with nearly all bands positive. - this would suggest early disseminated Lyme disease or later stage Lyme. since IgM was negative we are not dealing with acute/early stage Lyme. - s/p 15 days of IV rocephin -- converted to PO doxy 100mg BID x 14 days - this provided a total of 28 days of abx therapy for ?? chronic Lyme. (5) Hypertension: Plan: - Experienced hypertensive urgency earlier in hospitalization likely d/t agitation from acute withdrawal - Currently fairly controlled (6) Alcohol dependence: Plan: - Heavy EtOH use prior to admission, subsequently went through acute w ithdrawal/DTs requiring ICU stay, etc. (7) Hepatitis C: Plan: - Chronic, previously seen by ID in 2019 and was offered treatment, however declined at that time. - Reportedly has received hep A and B vaccines. - Had alcoholic hepatitis earlier this admission but LFTs normalized. - Patient with prior h/o drug abuse and had been incarcerated for illicit drugs in the past. (8) PUD (peptic ulcer disease): Plan: - cont PPI - duodenal bulb ulcer on recent EGD by [facility] (9) Learning disabilities: Plan: see scanned neuropsych testing done in the early Plan: DVT proph - Lovenox 40 mg SQ daily Case management is working on placement for this patient; however, multiple difficulties including his behavior primarily as well as his lack of covid vaccination. Daughter, Shefali, has gave consent for him to receive COVID vaccine which was administered 01/26. In addition, pt is considered a target, CM is working through this process. Unfortunately, pt's daughter is not legally his POA but is his next of kin and would be the primary decision maker by default. I do not believe that this pt has capacity to make his own decisions (which has been confirmed by psych) or sign paperwork to formally and legally appoint someone as POA. Bonnie Morris, pt's sister -- [phone] -- she resides in [place] Shefali Cavazos - daughter - [phone] -- provided update on 01/26 she is interested in being her father's POA as she is local in [place] and is next of kin Dispo - pending placement, per CM no facility has accepted yet Admission and Anticipated Discharge Date Admission Date: December 23, 2021 Subjective Patient seen on daily rounds today. Vocalizes no significant pain, shortness of breath, abdominal pain, nausea or vomiting. His only complaint today is that he "would like a banana and has not yet received 1". [facility] is sending one up. Review of Systems Review of Systems: All systems reviewed and are unremarkable except as noted in HPI and below Denies fevers, chills, headache, nasal congestion, sore throat, cough, chest pain, shortness of breath, palpitations, orthopnea, PND, abdominal pain, nausea, vomiting, diarrhea, constipation, dysuria, hematuria, frequency, back pain, joint pain or swelling, easy bruising or bleeding, skin lesions or rashes. Physical Exam Physical Exam: General: Resting comfortably in his bedside chair. Improved affect today. More engaged. NAD. HEENT: Head is AT/NC. Buccal mucosa is moist and pink Neck: No JVD. Negative hepatojugular reflex Cardiac: RRR without M/G/R Lungs: CTA without W/R/R Abdomen: Normoactive X4. Soft and nontender in all quadrants. Extremities: No peripheral clubbing cyanosis or edema Neuro: Oriented to self but not to time or situation. Cranial nerves II through XII are grossly intact. No focal neuro deficits Skin: No obvious skin lesions or rashes Psych: Appropriate affect. Pleasant and cooperative Results & Data Results & Data ([facility]) Vital Signs (Past 12 Hours) Vital Signs Temp Pulse Resp BP Pulse Ox 01/30/22 07:06 36.6 C 62 18 165/95 H 97 Laboratory Results 01/15/22 08:34 01/15/22 08:34 PG Care Time/CCT Total # of Minutes Spent Total Time Spent with Patient: Total time spent is greater than 50% in coordination of care (as documented) at patient's floor/unit and/or counseling patient: Coding Level of Care Code 39916 Subseq Hosp Care Lvl 1 Diagnoses Cognitive impairment R41.89 Encephalopathy G93.40 Delirium tremens F10.231 Positive Lyme disease serology R76.8 Hypertension I10 Alcohol dependence F10.251 Complication of substance-induced condition: with hallucinations Substance use status: alcohol-induced psychotic disorder Hepatitis C B19.20 PUD (peptic ulcer disease) K27.9 Learning disabilities F81.9 (1) Alcohol dependence Complication of substance-induced condition: with hallucinations Substance use status: alcohol-induced psychotic disorder Qualified Code(s): 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
[2022-01-30] MEDS: QUEtiapine FUMARATE 25 MG TABLET PO SCH ×2 (15:40→20:18)
[2022-01-31] MEDS: CHECK CLONIDINE PATCH PLACEMENT SCH ×3 (01:50→15:29)
[2022-01-31] MEDS: METOPROLOL TARTRATE 25 MG TAB PO SCH ×2 (10:05→20:41)
[2022-01-31] MEDS: FOLIC ACID 1 MG TAB PO SCH (10:05)
[2022-01-31] MEDS: THIAMINE HCL 100 MG TAB PO SCH ×2 (10:06→20:40)
[2022-01-31] MEDS: MULTI VIT W/MINERALS LIQUID 15 ML UDP GT SCH (10:06)
[2022-01-31] MEDS: POTASSIUM CHLORIDE PWD 20 MEQ PACK PO SCH ×2 (10:06→20:37)
[2022-01-31] MEDS: SENNOSIDES 8.8 MG/5 ML UDC PO SCH ×2 (10:06→20:37)
[2022-01-31] MEDS: LANSOPRAZOLE 30 MG SOLTAB PO SCH (10:07)
--- NOTE | 2022-01-31 13:05 | Hospitalist Progress Note ---
Date of Service January 31, 2022 Assessment & Plan (1) Cognitive impairment: Plan: - Pt initially admitted for complicated EtOH withdrawal, diagnostically c/w encephalopathy/hypoactive delirium superimposed on dementia based on prior CT imaging with age-related microvascular changes and poor performance on mini-cog testing in 2019 - Currently on Seroquel 50mg HS (uptitrated 01/23 PM with favorable response) - Psych has been involved in his care. * Patient does answer questions appropriately although in discussion with psychiatry, his cognition fluctuates day-to-day. They feel he does not have capacity to make decisions - He is for placement to for which case management is involved--unfortunately, pt is considered a target and will have to follow through this process to get him placed. Has shown improvement and no longer needing SNF. Looking into [facility] - He does have IM Zyprexa ordered to be utilized as directed for agitation/aggressive behavior but has not needed it since 0300 on 01/23 (2) Encephalopathy: Plan: RESOLVED and now at what seems to be his baseline mentation - Lyme Western Blot IgG VERY positive. Western blot IgM negative.Doubt Lyme was contributing as he has received adequate treatment for this. - TSH, B12 levels both wnl. - head CT at admission with atrophy/ventriculomegaly but no ICH, CVA, etc. - RPR is nonreactive. - Ammonia levels wnl. - MRI brain 01/03 neg for acute findings (3) Delirium tremens: Plan: RESOLVED. - s/p ICU stay for his DTs - required Precedex drip, IV ativan frequently, etc. - s/p high-dose IV thiamine for numerous days. (4) Positive Lyme disease serology: Plan: - Western blot results -- IgM negative; IgG very positive with nearly all bands positive. - this would suggest early disseminated Lyme disease or later stage Lyme. since IgM was negative we are not dealing with acute/early stage Lyme. - s/p 15 days of IV rocephin -- converted to PO doxy 100mg BID x 14 days - this provided a total of 28 days of abx therapy for ?? chronic Lyme. (5) Hypertension: Plan: - Experienced hypertensive urgency earlier in hospitalization likely d/t agitation from acute withdrawal - Currently fairly controlled (6) Alcohol dependence: Plan: - Heavy EtOH use prior to admission, subsequently went through acute withdrawal/DTs requiring ICU stay, etc. (7) Hepatitis C: Plan: - Chronic, previously seen by ID in 2019 and was offered treatment, however declined at that time. - Reportedly has received hep A and B vaccines. - Had alcoholic hepatitis earlier this admission but LFTs normalized. - Patient with prior h/o drug abuse and had been incarcerated for illicit drugs in the past. (8) PUD (peptic ulcer disease): Plan: - cont PPI - duodenal bulb ulcer on recent EGD by [facility] (9) Learning disabilities: Plan: see scanned neuropsych testing done in the early Plan: DVT proph - Lovenox 40 mg SQ daily Case management is working on placement for this patient; however, multiple difficulties including his behavior primarily as well as his lack of covid vaccination. Daughter, Shefali, has gave consent for him to receive COVID vaccine which was administered 01/26. In addition, pt is considered a target, CM is working through this process. Unfortunately, pt's daughter is not legally his POA but is his next of kin and would be the primary decision maker by default. I do not believe that this pt has capacity to make his own decisions (which has been confirmed by psych) or sign paperwork to formally and legally appoint someone as POA. Bonnie Morris, pt's sister -- [phone] -- she resides in [place] Shefali Cavazos - daughter - [phone] -- provided update on 01/26 she is interested in being her father's POA as she is local in [place] and is next of kin Dispo - pending placement, per CM no facility has accepted yet Admission and Anticipated Discharge Date Admission Date: December 23, 2021 Subjective Patient seen on daily rounds today. Vocalizes no significant pain, shortness of breath, abdominal pain, nausea or vomiting. Nursing voices no complaints or concerns Review of Systems Review of Systems: All systems reviewed and are unremarkable except as noted in HPI and below Denies fevers, chills, headache, nasal congestion, sore throat, cough, chest pain, shortness of breath, palpitations, orthopnea, PND, abdominal pain, nausea, vomiting, diarrhea, constipation, dysuria, hematuria, frequency, back pain, joint pain or swelling, easy bruising or bleeding, skin lesions or rashes. Physical Exam Physical Exam: General: Resting comfortably in his bedside chair. NAD. HEENT: Head is AT/NC. Buccal mucosa is moist and pink Neck: No JVD. Negative hepatojugular reflex Cardiac: RRR without M/G/R Lungs: CTA without W/R/R Abdomen: Normoactive X4. Soft and nontender in all quadrants. Extremities: No peripheral clubbing cyanosis or edema Neuro: Oriented to self but not to time or situation. Cranial nerves II through XII are grossly intact. No focal neuro deficits Skin: No obvious skin lesions or rashes Psych: Appropriate affect. Pleasant and cooperative Results & Data Results & Data ([facility]) Vital Signs (Past 12 Hours) Vital Signs Temp Pulse Resp BP Pulse Ox 01/31/22 07:01 36.6 C 61 18 146/92 H 95 Laboratory Results No lab data PG Care Time/CCT Total # of Minutes Spent Total Time Spent with Patient: Total time spent is greater than 50% in coordination of care (as documented) at patient's floor/unit and/or counseling patient: Coding Level of Care Code 53112 Subseq Hosp Care Lvl 1 Diagnoses Cognitive impairment R41.89 Encephalopathy G93.40 Delirium tremens F10.231 Positive Lyme disease serology R76.8 Hypertension I10 Alcohol dependence F10.251 Complication of substance-induced condition: with hallucinations Substance use status: alcohol-induced psychotic disorder Hepatitis C B19.20 PUD (peptic ulcer disease) K27.9 Learning disabilities F81.9 (1) Alcohol dependence Complication of substance-induced condition: with hallucinations Substance use status: alcohol-induced psychotic disorder Qualified Code(s): 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
[2022-01-31] MEDS: QUEtiapine FUMARATE 25 MG TABLET PO SCH ×2 (15:29→20:42)
[2022-02-01] MEDS: CHECK CLONIDINE PATCH PLACEMENT SCH ×3 (00:18→15:19)
--- NOTE | 2022-02-01 07:52 | Communication Note ---
Date of Service: February 01, 2022 interim progress reviewed, has been much more pleasant/cooperative in past week following increase in Seroquel and more time for AMS to resolve, awaiting nayana cement. No additional recs from psychiatry at this time.
--- NOTE | 2022-02-01 10:31 | Hospitalist Progress Note ---
Date of Service February 01, 2022 Assessment & Plan (1) Cognitive impairment: Plan: - Pt initially admitted for complicated EtOH withdrawal, diagnostically c/w encephalopathy/hypoactive delirium superimposed on dementia based on prior CT imaging with age-related microvascular changes and poor performance on mini-cog testing in 2019 - Currently on Seroquel 50mg HS (uptitrated 01/23 PM with favorable response) - Psych has been involved in his care. * Patient does answer questions appropriately although in discussion with psychiatry, his cognition fluctuates day-to-day. They feel he does not have capacity to make decisions - Initially was requiring SNF but no longer with skilled needs. Case management looking into [facility] with memory support units. Daughter has filed for medical assistance. Case management working on this - He does have IM Zyprexa ordered to be utilized as directed for agitation/aggressive behavior but has not needed it since 299 on 01/23 (2) Encephalopathy: Plan: RESOLVED and now at what seems to be his baseline mentation - Lyme Western Blot IgG VERY positive. Western blot IgM negative.Doubt Lyme was contributing as he has received adequate treatment for this. - TSH, B12 levels both wnl. - head CT at admission with atrophy/ventriculomegaly but no ICH, CVA, etc. - RPR is nonreactive. - Ammonia levels wnl. - MRI brain 01/03 neg for acute findings (3) Delirium tremens: Plan: RESOLVED. - s/p ICU stay for his DTs - required Precedex drip, IV ativan frequently, etc. - s/p high-dose IV thiamine for numerous days. (4) Positive Lyme disease serology: Plan: - Western blot results -- IgM negative; IgG very positive with nearly all bands positive. - this would suggest early disseminated Lyme disease or later stage Lyme. since IgM was negative we are not dealing with acute/early stage Lyme. - s/p 15 days of IV rocephin -- converted to PO doxy 100mg BID x 14 days - this provided a total of 28 days of abx therapy for ?? chronic Lyme. (5) Hypertension: Plan: - Experienced hypertensive urgency earlier in hospitalization likely d/t agitation from acute withdrawal - Currently fairly controlled (6) Alcohol dependence: Plan: - Heavy EtOH use prior to admission, subsequently went through acute withdrawal/DTs requiring ICU stay, etc. (7) Hepatitis C: Plan: - Chronic, previously seen by ID in 2019 and was offered treatment, however declined at that time. - Reportedly has received hep A and B vaccines. - Had alcoholic hepatitis earlier this admission but LFTs normalized. - Patient with prior h/o drug abuse and had been incarcerated for illicit drugs in the past. (8) PUD (peptic ulcer disease): Plan: - cont PPI - duodenal bulb ulcer on recent EGD by [facility] (9) Learning disabilities: Plan: see scanned neuropsych testing done in the early Plan: DVT proph - Lovenox 40 mg SQ daily Unfortunately, pt's daughter is not legally his POA but is his next of kin and would be the primary decision maker by default. I do not believe that this pt has capacity to make his own decisions (which has been confirmed by psych) or sign paperwork to formally and legally appoint someone as POA. Bonnie Morris, pt's sister -- [phone] -- she resides in [place] Shefali Cavazos - daughter - [phone] -- provided update on 01/26 she is interested in being her father's POA as she is local in [place] and is next of kin Dispo -medically stable X weeks. Issue is placement at this point. Pending placement, per CM no facility has accepted yet Admission and Anticipated Discharge Date Admission Date: December 23, 2021 Subjective Patient seen on daily rounds today. Vocalizes no significant pain, shortness of breath, abdominal pain, nausea or vomiting. Nursing request several medications be renewed as he has been here for 40 days thus some have fallen off of his EMR Review of Systems Review of Systems: All systems reviewed and are unremarkable except as noted in HPI and below Denies fevers, chills, headache, nasal congestion, sore throat, cough, chest pain, shortness of breath, palpitations, orthopnea, PND, abdominal pain, nausea, vomiting, diarrhea, constipation, dysuria, hematuria, frequency, back pain, joint pain or swelling, easy bruising or bleeding, skin lesions or rashes. Physical Exam Physical Exam: General: Resting comfortably in his bedside chair. NAD. HEENT: Head is AT/NC. Buccal mucosa is moist and pink Neck: No JVD. Negative hepatojugular reflex Cardiac: RRR without M/G/R Lungs: CTA without W/R/R Abdomen: Normoactive X4. Soft and nontender in all quadrants. Extremities: No peripheral clubbing cyanosis or edema Neuro: Oriented to self but not to time or situation. Cranial nerves II through XII are grossly intact. No focal neuro deficits Skin: No obvious skin lesions or rashes Psych: Appropriate affect. Pleasant and cooperative Results & Data Results & Data ([facility]) Vital Signs (Past 12 Hours) Vital Signs Temp Pulse Resp BP Pulse Ox 02/01/22 07:32 36.6 C 63 16 144/89 H 98 Laboratory Results no lab data PG Care Time/CCT Total # of Minutes Spent Total Time Spent with Patient: Total time spent is greater than 50% in coordination of care (as documented) at patient's floor/unit and/or counseling patient: Coding Level of Care Code 24947 Subseq Hosp Care Lvl 1 Diagnoses Cognitive impairment R41.89 Encephalopathy G93.40 Delirium tremens F10.231 Positive Lyme disease serology R76.8 Hypertension I10 Alcohol dependence F10.251 Complication of substance-induced condition: with hallucinations Substance use status: alcohol-induced psychotic disorder Hepatitis C B19.20 PUD (peptic ulcer disease) K27.9 Learning disabilities F81.9 (1) Alcohol dependence Complication of substance-induced condition: with hallucinations Substance use status: alcohol-induced psychotic disorder Qualified Code(s): 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
[2022-02-01] MEDS: SENNOSIDES 8.8 MG/5 ML UDC PO SCH (10:45)
[2022-02-01] MEDS: POTASSIUM CHLORIDE PWD 20 MEQ PACK PO SCH ×2 (10:45→20:08)
[2022-02-01] MEDS: FOLIC ACID 1 MG TAB PO SCH (10:45)
[2022-02-01] MEDS: LANSOPRAZOLE 30 MG SOLTAB PO SCH (10:46)
[2022-02-01] MEDS: METOPROLOL TARTRATE 25 MG TAB PO SCH ×2 (10:46→20:10)
[2022-02-01] MEDS: THIAMINE HCL 100 MG TAB PO SCH ×2 (10:47→20:09)
[2022-02-01] MEDS: QUEtiapine FUMARATE 25 MG TABLET PO SCH ×2 (15:19→20:09)
[2022-02-02] MEDS: CHECK CLONIDINE PATCH PLACEMENT SCH ×4 (00:23→23:04)
[2022-02-02] MEDS: CEROVITE ADV FORMULA TAB PO SCH (09:24)
[2022-02-02] MEDS: FOLIC ACID 1 MG TAB PO SCH (09:25)
[2022-02-02] MEDS: THIAMINE HCL 100 MG TAB PO SCH ×2 (09:25→20:16)
[2022-02-02] MEDS: METOPROLOL TARTRATE 25 MG TAB PO SCH ×2 (09:25→20:17)
[2022-02-02] MEDS: POTASSIUM CHLORIDE PWD 20 MEQ PACK PO SCH ×2 (09:26→20:15)
[2022-02-02] MEDS: LANSOPRAZOLE 30 MG SOLTAB PO SCH (09:26)
[2022-02-02] MEDS: QUEtiapine FUMARATE 25 MG TABLET PO SCH ×2 (15:35→20:16)
--- NOTE | 2022-02-02 15:44 | Hospitalist Progress Note ---
Date of Service February 02, 2022 Assessment & Plan (1) Cognitive impairment: Plan: - Pt initially admitted for complicated EtOH withdrawal, diagnostically c/w encephalopathy/hypoactive delirium superimposed on dementia based on prior CT imaging with age-related microvascular changes and poor performance on mini-cog testing in 2019 - Currently on Seroquel 50mg HS (uptitrated 01/23 PM with favorable response) - Psych has been involved in his care. * Patient does answer questions appropriately although in discussion with psychiatry, his cognition fluctuates day-to-day. They feel he does not have capacity to make decisions - Initially was requiring SNF but no longer with skilled needs. Case management looking into [facility] with memory support units. Daughter has filed for medical assistance. Case management working on this - He does have IM Zyprexa ordered to be utilized as directed for agitation/aggressive behavior but has not needed it since 299 on 01/23 (2) Encephalopathy: Plan: RESOLVED and now at what seems to be his baseline mentation - Lyme Western Blot IgG VERY positive. Western blot IgM negative.Doubt Lyme was contributing as he has received adequate treatment for this. - TSH, B12 levels both wnl. - head CT at admission with atrophy/ventriculomegaly but no ICH, CVA, etc. - RPR is nonreactive. - Ammonia levels wnl. - MRI brain 01/03 neg for acute findings (3) Delirium tremens: Plan: RESOLVED. - s/p ICU stay for his DTs - required Precedex drip, IV ativan frequently, etc. - s/p high-dose IV thiamine for numerous days. (4) Positive Lyme disease serology: Plan: - Western blot results -- IgM negative; IgG very positive with nearly all bands positive. - this would suggest early disseminated Lyme disease or later stage Lyme. since IgM was negative we are not dealing with acute/early stage Lyme. - s/p 15 days of IV rocephin -- converted to PO doxy 100mg BID x 14 days - this provided a total of 28 days of abx therapy for ?? chronic Lyme. (5) Hypertension: Plan: - Experienced hypertensive urgency earlier in hospitalization likely d/t agitation from acute withdrawal - Currently fairly controlled (6) Alcohol dependence: Plan: - Heavy EtOH use prior to admission, subsequently went through acute withdrawal/DTs requiring ICU stay, etc. (7) Hepatitis C: Plan: - Chronic, previously seen by ID in 2019 and was offered treatment, however declined at that time. - Reportedly has received hep A and B vaccines. - Had alcoholic hepatitis earlier this admission but LFTs normalized. - Patient with prior h/o drug abuse and had been incarcerated for illicit drugs in the past. (8) PUD (peptic ulcer disease): Plan: - cont PPI - duodenal bulb ulcer on recent EGD by [facility] (9) Learning disabilities: Plan: see scanned neuropsych testing done in the early Plan: DVT proph - Lovenox 40 mg SQ daily Unfortunately, pt's daughter is not legally his POA but is his next of kin and would be the primary decision maker by default. I do not believe that this pt has capacity to make his own decisions (which has been confirmed by psych) or sign paperwork to formally and legally appoint someone as POA. Bonnie Morris, pt's sister -- [phone] -- she resides in [place] Shefali Cavazos - daughter - [phone] -- provided update on 01/26 she is interested in being her father's POA as she is local in [place] and is next of kin Dispo -medically stable X weeks. Issue is placement at this point. Pending placement, per CM no facility has accepted yet 02/02daughter updated Admission and Anticipated Discharge Date Admission Date: December 23, 2021 Subjective Patient seen on daily rounds today. Vocalizes no significant pain, shortness of breath, abdominal pain, nausea or vomiting. Review of Systems Review of Systems: All systems reviewed and are unremarkable except as noted in HPI and below Denies fevers, chills, headache, nasal congestion, sore throat, cough, chest pain, shortness of breath, palpitations, orthopnea, PND, abdominal pain, nausea, vomiting, diarrhea, constipation, dysuria, hematuria, frequency, back pain, joint pain or swelling, easy bruising or bleeding, skin lesions or rashes. Physical Exam Physical Exam: General: Resting comfortably in his bedside chair. NAD. HEENT: Head is AT/NC. Buccal mucosa is moist and pink Neck: No JVD. Negative hepatojugular reflex Cardiac: RRR without M/G/R Lungs: CTA without W/R/R Abdomen: Normoactive X4. Soft and nontender in all quadrants. Extremities: No peripheral clubbing cyanosis or edema Neuro: Oriented to self but not to time or situation. Cranial nerves II through XII are grossly intact. No focal neuro deficits Skin: No obvious skin lesions or rashes Psych: Appropriate affect. Pleasant and cooperative Results & Data Results & Data ([facility]) Vital Signs (Past 12 Hours) Vital Signs Temp Pulse Resp BP Pulse Ox 02/02/22 07:14 36.5 C 68 17 162/93 H 97 PG Care Time/CCT Total # of Minutes Spent Total Time Spent with Patient: Total time spent is greater than 50% in coordination of care (as documented) at patient's floor/unit and/or counseling patient: Coding Level of Care Code 78803 Subseq Hosp Care Lvl 1 Diagnoses Cognitive impairment R41.89 Encephalopathy G93.40 Delirium tremens F10.231 Positive Lyme disease serology R76.8 Hypertension I10 Alcohol dependence F10.251 Complication of substance-induced condition: with hallucinations Substance use status: alcohol-induced psychotic disorder Hepatitis C B19.20 PUD (peptic ulcer disease) K27.9 Learning disabilities F81.9 (1) Alcohol dependence Complication of substance-induced condition: with hallucinations Substance use status: alcohol-induced psychotic disorder Qualified Code(s): 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
[2022-02-02] MEDS: POLYETHYLENE (MIRALAX) 17 GM PACK PO PRN (20:17)
[2022-02-03] MEDS: FOLIC ACID 1 MG TAB PO SCH (09:27)
[2022-02-03] MEDS: CHECK CLONIDINE PATCH PLACEMENT SCH ×3 (09:27→23:32)
[2022-02-03] MEDS: CEROVITE ADV FORMULA TAB PO SCH (09:28)
[2022-02-03] MEDS: METOPROLOL TARTRATE 25 MG TAB PO SCH ×2 (09:28→21:13)
[2022-02-03] MEDS: POTASSIUM CHLORIDE PWD 20 MEQ PACK PO SCH ×2 (09:28→21:13)
[2022-02-03] MEDS: THIAMINE HCL 100 MG TAB PO SCH ×2 (09:28→21:14)
--- NOTE | 2022-02-03 14:47 | Hospitalist Progress Note ---
Date of Service February 03, 2022 Assessment & Plan (1) Cognitive impairment: Plan: - Pt initially admitted for complicated EtOH withdrawal, diagnostically c/w encephalopathy/hypoactive delirium superimposed on dementia based on prior CT imaging with age-related microvascular changes and poor performance on mini-cog testing in 2019 - Currently on Seroquel 50mg HS (uptitrated 01/23 PM with favorable response) - Psych has been involved in his care. * Patient does answer questions appropriately although in discussion with psychiatry, his cognition fluctuates day-to-day. They feel he does not have capacity to make decisions - Initially was requiring SNF but no longer with skilled needs. Case management looking into [facility] with memory support units. Daughter has filed for medical assistance. Case management working on this - He does have IM Zyprexa ordered to be utilized as directed for agitation/aggressive behavior but has not needed it since 299 on 01/23 (2) Encephalopathy: Plan: RESOLVED and now at what seems to be his baseline mentation - Lyme Western Blot IgG VERY positive. Western blot IgM negative.Doubt Lyme was contributing as he has received adequate treatment for this. - TSH, B12 levels both wnl. - head CT at admission with atrophy/ventriculomegaly but no ICH, CVA, etc. - RPR is nonreactive. - Ammonia levels wnl. - MRI brain 01/03 neg for acute findings (3) Delirium tremens: Plan: RESOLVED. - s/p ICU stay for his DTs - required Precedex drip, IV ativan frequently, etc. - s/p high-dose IV thiamine for numerous days. (4) Positive Lyme disease serology: Plan: - Western blot results -- IgM negative; IgG very positive with nearly all bands positive. - this would suggest early disseminated Lyme disease or later stage Lyme. since IgM was negative we are not dealing with acute/early stage Lyme. - s/p 15 days of IV rocephin -- converted to PO doxy 100mg BID x 14 days - this provided a total of 28 days of abx therapy for ?? chronic Lyme. (5) Hypertension: Plan: - Experienced hypertensive urgency earlier in hospitalization likely d/t agitation from acute withdrawal - Currently fairly controlled - On clonidine patch (6) Alcohol dependence: Plan: - Heavy EtOH use prior to admission, subsequently went through acute withdrawal/DTs requiring ICU stay, etc. (7) Hepatitis C: Plan: - Chronic, previously seen by ID in 2019 and was offered treatment, however declined at that time. - Reportedly has received hep A and B vaccines. - Had alcoholic hepatitis earlier this admission but LFTs normalized. - Patient with prior h/o drug abuse and had been incarcerated for illicit drugs in the past. (8) PUD (peptic ulcer disease): Plan: - cont PPI - duodenal bulb ulcer on recent EGD by [facility] (9) Learning disabilities: Plan: see scanned neuropsych testing done in the early Plan: DVT proph - Lovenox 40 mg SQ daily Unfortunately, pt's daughter is not legally his POA but is his next of kin and would be the primary decision maker by default. I do not believe that this pt has capacity to make his own decisions (which has been confirmed by psych) or sign paperwork to formally and legally appoint someone as POA. Bonnie Morris, pt's sister -- [phone] -- she resides in [place] Shefali Cavazos - daughter - [phone] -- provided update on 01/26 she is interested in being her father's POA as she is local in [employer] [place] and is next of kin Dispo -medically stable X weeks. Issue is placement at this point. Pending placement, per CM no facility has accepted yet 02/02daughter updated Admission and Anticipated Discharge Date Admission Date: December 23, 2021 Subjective Patient seen on daily rounds today. Vocalizes no significant pain, shortness of breath, abdominal pain, nausea or vomiting. Review of Systems Review of Systems: All systems reviewed and are unremarkable except as noted in HPI and below Denies fevers, chills, headache, nasal congestion, sore throat, cough, chest pain, shortness of breath, palpitations, orthopnea, PND, abdominal pain, nausea, vomiting, diarrhea, constipation, dysuria, hematuria, frequency, back pain, joint pain or swelling, easy bruising or bleeding, skin lesions or rashes. Physical Exam Physical Exam: General: Resting comfortably in his bedside chair. NAD. HEENT: Head is AT/NC. Buccal mucosa is moist and pink Neck: No JVD. Negative hepatojugular reflex Cardiac: RRR without M/G/R Lungs: CTA without W/R/R Abdomen: Normoactive X4. Soft and nontender in all quadrants. Extremities: No peripheral clubbing cyanosis or edema Neuro: Oriented to self but not to time or situation. Cranial nerves II through XII are grossly intact. No focal neuro deficits Skin: No obvious skin lesions or rashes Psych: Appropriate affect. Pleasant and cooperative Results & Data Results & Data ([facility]) Vital Signs (Past 12 Hours) Vital Signs Temp Pulse Resp BP Pulse Ox 02/03/22 07:01 36.4 C L 71 16 147/96 H 95 PG Care Time/CCT Total # of Minutes Spent Total Time Spent with Patient: Total time spent is greater than 50% in coordination of care (as documented) at patient's floor/unit and/or counseling patient: Coding Level of Care Code 05542 Subseq Hosp Care Lvl 1 Diagnoses Cognitive impairment R41.89 Encephalopathy G93.40 Delirium tremens F10.231 Positive Lyme disease serology R76.8 Hypertension I10 Alcohol dependence F10.251 Complication of substance-induced condition: with hallucinations Substance use status: alcohol-induced psychotic disorder Hepatitis C B19.20 PUD (peptic ulcer disease) K27.9 Learning disabilities F81.9 (1) Alcohol dependence Complication of substance-induced condition: with hallucinations Substance use status: alcohol-induced psychotic disorder Qualified Code(s): 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
[2022-02-03] MEDS: QUEtiapine FUMARATE 25 MG TABLET PO SCH ×2 (16:48→21:13)
[2022-02-04] MEDS: CEROVITE ADV FORMULA TAB PO SCH (08:32)
[2022-02-04] MEDS: CHECK CLONIDINE PATCH PLACEMENT SCH ×2 (08:32→16:40)
[2022-02-04] MEDS: METOPROLOL TARTRATE 25 MG TAB PO SCH ×2 (08:32→20:11)
[2022-02-04] MEDS: FOLIC ACID 1 MG TAB PO SCH (08:33)
[2022-02-04] MEDS: POTASSIUM CHLORIDE PWD 20 MEQ PACK PO SCH ×2 (08:33→20:11)
[2022-02-04] MEDS: THIAMINE HCL 100 MG TAB PO SCH ×2 (08:34→20:12)
[2022-02-04] MEDS: cloNIDine HCL 0.1 MG/24 HR TRANSDERM SYS TD SCH (08:34)
--- NOTE | 2022-02-04 15:15 | Hospitalist Progress Note ---
Date of Service February 04, 2022 Assessment & Plan (1) Cognitive impairment: Plan: - Pt initially admitted for complicated EtOH withdrawal, diagnostically c/w encephalopathy/hypoactive delirium superimposed on dementia based on prior CT imaging with age-related microvascular changes and poor performance on mini-cog testing in 2019 - Currently on Seroquel 50mg HS (uptitrated 01/23 PM with favorable response) - Psych has been involved in his care. * Patient does answer questions appropriately although in discussion with psychiatry, his cognition fluctuates day-to-day. They feel he does not have capacity to make decisions - He does have IM Zyprexa ordered to be utilized as directed for agitation/aggressive behavior but has not needed it since 299 on 01/23 (2) Encephalopathy: Plan: RESOLVED and now at what seems to be his baseline mentation - Lyme Western Blot IgG VERY positive. Western blot IgM negative.Doubt Lyme was contributing as he has received adequate treatment for this. - TSH, B12 levels both wnl. - head CT at admission with atrophy/ventriculomegaly but no ICH, CVA, etc. - RPR is nonreactive. - Ammonia levels wnl. - MRI brain 01/03 neg for acute findings (3) Delirium tremens: Plan: RESOLVED. - s/p ICU stay for his DTs - required Precedex drip, IV ativan frequently, etc. - s/p high-dose IV thiamine for numerous days. (4) Positive Lyme disease serology: Plan: - Western blot results -- IgM negative; IgG very positive with nearly all bands positive. - this would suggest early disseminated Lyme disease or later stage Lyme. since IgM was negative we are not dealing with acute/early stage Lyme. - s/p 15 days of IV rocephin -- converted to PO doxy 100mg BID x 14 days - this provided a total of 28 days of abx therapy for ?? chronic Lyme. (5) Hypertension: Plan: - Experienced hypertensive urgency earlier in hospitalization likely d/t agitation from acute withdrawal - BP still above goal - Started on a clonidine patch (for BP control and to help with withdrawal symptoms). Increase dose to 0.2 mg daily (6) Alcohol dependence: Plan: - Heavy EtOH use prior to admission, subsequently went through acute withdrawal/DTs requiring ICU stay, etc. (7) Hepatitis C: Plan: - Chronic, previously seen by ID in 2019 and was offered treatment, however declined at that time. - Reportedly has received hep A and B vaccines. - Had alcoholic hepatitis earlier this admission but LFTs normalized. - Patient with prior h/o drug abuse and had been incarcerated for illicit drugs in the past. (8) PUD (peptic ulcer disease): Plan: - cont PPI - duodenal bulb ulcer on recent EGD by [facility] (9) Learning disabilities: Plan: see scanned neuropsych testing done in the early Plan: DVT proph - Lovenox 40 mg SQ daily Unfortunately, pt's daughter is not legally his POA but is his next of kin and would be the primary decision maker by default. I do not believe that this pt has capacity to make his own decisions (which has been confirmed by psych) or sign paperwork to formally and legally appoint someone as POA. Bonnie Morris, pt's sister -- [phone] -- she resides in [place] Shefali Cavazos - daughter - [phone] -- provided update on 01/26 she is interested in being her father's POA as she is local in [place] and is next of kin Dispo -medically stable X weeks. Issue is placement at this point. Case management involved. May need locked memory support unit versus personal care facility (for which finances may pose a problem). Patient is at [facility] and the office of aging is now involved to go through the target process 02/02daughter updated Admission and Anticipated Discharge Date Admission Date: December 23, 2021 Subjective Patient seen on daily rounds today. Vocalizes no significant complaints or concerns. He seems rather triggered today and agitated. He continues to discuss being "locked up". He continues to go back to the fact that he was incarcerated for 8 years and "how would you like to not be able to leave". He continues to use profanity today. It was brought to my attention that the office of aging met with the patient yesterday to complete target screen. They did make mention about him requiring a locked memory support unit. Blood pressure has been elevated off and on throughout this hospital stay. For the most part, has been above goal. Review of Systems Review of Systems: All systems reviewed and are unremarkable except as noted in HPI and below Denies fevers, chills, headache, nasal congestion, sore throat, cough, chest pain, shortness of breath, palpitations, orthopnea, PND, abdominal pain, nausea, vomiting, diarrhea, constipation, dysuria, hematuria, frequency, back pain, joint pain or swelling, easy bruising or bleeding, skin lesions or rashes. Physical Exam Physical Exam: General: Resting comfortably in his bedside chair. NAD. HEENT: Head is AT/NC. Buccal mucosa is moist and pink Neck: No JVD. Negative hepatojugular reflex Cardiac: RRR without M/G/R Lungs: CTA without W/R/R Abdomen: Normoactive X4. Soft and nontender in all quadrants. Extremities: No peripheral clubbing cyanosis or edema Neuro: Oriented to self but not to time or situation. Cranial nerves II through XII are grossly intact. No focal neuro deficits Skin: No obvious skin lesions or rashes Psych: Appropriate affect. Pleasant and cooperative Results & Data Results & Data ([facility]) Vital Signs (Past 12 Hours) Vital Signs Temp Pulse Resp BP Pulse Ox 02/04/22 07:37 36.4 C L 69 18 150/89 H 95 PG Care Time/CCT Total # of Minutes Spent Total Time Spent with Patient: Total time spent is greater than 50% in coordination of care (as documented) at patient's floor/unit and/or counseling patient: Coding Level of Care Code 47728 Subseq Hosp Care Lvl 2 Diagnoses Cognitive impairment R41.89 Encephalopathy G93.40 Delirium tremens F10.231 Positive Lyme disease serology R76.8 Hypertension I10 Alcohol dependence F10.251 Complication of substance-induced condition: with hallucinations Substance use status: alcohol-induced psychotic disorder Hepatitis C B19.20 PUD (peptic ulcer disease) K27.9 Learning disabilities F81.9 (1) Alcohol dependence Complication of substance-induced condition: with hallucinations Substance use status: alcohol-induced psychotic disorder Qualified Code(s): 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
[2022-02-04] MEDS: QUEtiapine FUMARATE 25 MG TABLET PO SCH ×2 (16:39→20:12)
[2022-02-04] MEDS: POLYETHYLENE (MIRALAX) 17 GM PACK PO PRN (20:18)
[2022-02-05] MEDS: CHECK CLONIDINE PATCH PLACEMENT SCH ×4 (00:23→22:10)
[2022-02-05] MEDS: FOLIC ACID 1 MG TAB PO SCH (09:02)
[2022-02-05] MEDS: THIAMINE HCL 100 MG TAB PO SCH ×2 (09:02→20:25)
[2022-02-05] MEDS: CEROVITE ADV FORMULA TAB PO SCH (09:02)
[2022-02-05] MEDS: METOPROLOL TARTRATE 25 MG TAB PO SCH ×2 (09:03→21:38)
[2022-02-05] MEDS: POTASSIUM CHLORIDE PWD 20 MEQ PACK PO SCH ×2 (09:04→20:23)
[2022-02-05] MEDS: POLYETHYLENE (MIRALAX) 17 GM PACK PO PRN (09:10)
--- NOTE | 2022-02-05 12:12 | Hospitalist Progress Note ---
Date of Service February 05, 2022 Assessment & Plan (1) Cognitive impairment: Plan: - Pt initially admitted for complicated EtOH withdrawal, diagnostically c/w encephalopathy/hypoactive delirium superimposed on dementia based on prior CT imaging with age-related microvascular changes and poor performance on mini-cog testing in 2019 - Currently on Seroquel 50mg HS (uptitrated 01/23 PM with favorable response) - Psych has been involved in his care. * Patient does answer questions appropriately although in discussion with psychiatry, his cognition fluctuates day-to-day. They feel he does not have capacity to make decisions - He does have IM Zyprexa ordered to be utilized as directed for agitation/aggressive behavior but has not needed it since 299 on 01/23 (2) Encephalopathy: Plan: RESOLVED and now at what seems to be his baseline mentation - Lyme Western Blot IgG VERY positive. Western blot IgM negative.Doubt Lyme was contributing as he has received adequate treatment for this. - TSH, B12 levels both wnl. - head CT at admission with atrophy/ventriculomegaly but no ICH, CVA, etc. - RPR is nonreactive. - Ammonia levels wnl. - MRI brain 01/03 neg for acute findings (3) Delirium tremens: Plan: RESOLVED. - s/p ICU stay for his DTs - required Precedex drip, IV ativan frequently, etc. - s/p high-dose IV thiamine for numerous days. (4) Positive Lyme disease serology: Plan: - Western blot results -- IgM negative; IgG very positive with nearly all bands positive. - this would suggest early disseminated Lyme disease or later stage Lyme. since IgM was negative we are not dealing with acute/early stage Lyme. - s/p 15 days of IV rocephin -- converted to PO doxy 100mg BID x 14 days - this provided a total of 28 days of abx therapy for ?? chronic Lyme. (5) Hypertension: Plan: - Experienced hypertensive urgency earlier in hospitalization likely d/t agitation from acute withdrawal - BP still above goal - Started on a clonidine patch (for BP control and to help with withdrawal symptoms). Increase dose to 0.2 mg daily (6) Alcohol dependence: Plan: - Heavy EtOH use prior to admission, subsequently went through acute withdrawal/DTs requiring ICU stay, etc. (7) Hepatitis C: Plan: - Chronic, previously seen by ID in 2019 and was offered treatment, however declined at that time. - Reportedly has received hep A and B vaccines. - Had alcoholic hepatitis earlier this admission but LFTs normalized. - Patient with prior h/o drug abuse and had been incarcerated for illicit drugs in the past. (8) PUD (peptic ulcer disease): Plan: - cont PPI - duodenal bulb ulcer on recent EGD by Jada HUTCHINSON (9) Learning disabilities: Plan: see scanned neuropsych testing done in the early Plan: DVT proph - Lovenox 40 mg SQ daily Unfortunately, pt's daughter is not legally his POA but is his next of kin and would be the primary decision maker by default. I do not believe that this pt has capacity to make his own decisions (which has been confirmed by psych) or sign paperwork to formally and legally appoint someone as POA. Bonnie Morris, pt's sister -- [phone] -- she resides in [place] Shefali Cavazos - daughter - [phone] -- provided update on 01/26 she is interested in being her father's POA as she is local in [place] and is next of kin Dispo -medically stable X weeks. Issue is placement at this point. Case management involved. May need locked memory support unit versus personal care facility (for which finances may pose a problem). Patient is a target and the office of aging is now involved to go through the target process 02/02daughter updated Admission and Anticipated Discharge Date Admission Date: December 23, 2021 Supervising Physician Co-Signing Physician Notes reviewed and agree froy Massey PAC Subjective Patient seen on daily rounds today. Vocalizes no significant complaints or concerns. Pleasant today, requesting something more for his constipation and someone to clip his toenails. Review of Systems Review of Systems: All systems reviewed and are unremarkable except as noted in HPI and below Denies fevers, chills, headache, nasal congestion, sore throat, cough, chest pain, shortness of breath, palpitations, orthopnea, PND, abdominal pain, nausea, vomiting, diarrhea, constipation, dysuria, hematuria, frequency, back pain, joint pain or swelling, easy bruising or bleeding, skin lesions or rashes. Physical Exam Physical Exam: GENERAL: 66 yo wd/wn WM. Awake, alert, but pleasantly confused. NAD. LUNGS: Clear to auscultation bilaterally. No W/R/R. CARDIOVASCULAR: Regular rate and rhythm. No M/G/R. ABDOMEN: Soft, non-tender and non-distended. BS normal x 4 quad. EXTREMITIES: No edema. Non-tender. Peripheral pulses +2/4. NEUROLOGIC: no gross neuro deficits PSYCHIATRIC: Pleasant, cooperative. SKIN: Warm, dry, intact. No rashes or lesions. Results & Data Results & Data ([facility]) Vital Signs (Past 12 Hours) Vital Signs Temp Pulse Resp BP Pulse Ox 02/05/22 07:19 36.6 C 71 18 154/84 H 93 Laboratory Results None PG Care Time/CCT Total # of Minutes Spent Total Time Spent with Patient: Total time spent is greater than 50% in coordination of care (as documented) at patient's floor/unit and/or counseling patient: Coding Level of Care Code 81250 Subseq Hosp Care Lvl 1 Diagnoses Cognitive impairment R41.89 Encephalopathy G93.40 Delirium tremens F10.231 Positive Lyme disease serology R76.8 Hypertension I10 Alcohol dependence F10.251 Complication of substance-induced condition: with hallucinations Substance use status: alcohol-induced psychotic disorder Hepatitis C B19.20 PUD (peptic ulcer disease) K27.9 Learning disabilities F81.9 (1) Alcohol dependence Complication of substance-induced condition: with hallucinations Substance use status: alcohol-induced psychotic disorder Qualified Code(s): 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
[2022-02-05] MEDS: DOCUSATE SODIUM/SENNA 50/8.6MG TAB PO SCH (13:38)
[2022-02-05] MEDS: QUEtiapine FUMARATE 25 MG TABLET PO SCH ×2 (15:34→20:24)
[2022-02-06] MEDS: POTASSIUM CHLORIDE PWD 20 MEQ PACK PO SCH ×2 (08:09→21:22)
[2022-02-06] MEDS: CHECK CLONIDINE PATCH PLACEMENT SCH ×3 (08:10→22:59)
[2022-02-06] MEDS: METOPROLOL TARTRATE 25 MG TAB PO SCH ×2 (08:11→21:23)
[2022-02-06] MEDS: THIAMINE HCL 100 MG TAB PO SCH ×2 (08:11→21:23)
[2022-02-06] MEDS: FOLIC ACID 1 MG TAB PO SCH (08:13)
[2022-02-06] MEDS: CEROVITE ADV FORMULA TAB PO SCH (08:13)
[2022-02-06] MEDS: DOCUSATE SODIUM/SENNA 50/8.6MG TAB PO SCH (08:15)
--- NOTE | 2022-02-06 11:34 | Hospitalist Progress Note ---
Date of Service February 06, 2022 Assessment & Plan (1) Cognitive impairment: Plan: - Pt initially admitted for complicated EtOH withdrawal, diagnostically c/w encephalopathy/hypoactive delirium superimposed on dementia based on prior CT imaging with age-related microvascular changes and poor performance on mini-cog testing in 2019 - Currently on Seroquel 50mg HS (uptitrated 01/23 PM with favorable response) - Psych has been involved in his care. * Patient does answer questions appropriately although in discussion with psychiatry, his cognition fluctuates day-to-day. They feel he does not have capacity to make decisions - He does have IM Zyprexa ordered to be utilized as directed for agitation/aggressive behavior but has not needed it since 299 on 01/23 (2) Encephalopathy: Plan: RESOLVED and now at what seems to be his baseline mentation - Lyme Western Blot IgG VERY positive. Western blot IgM negative.Doubt Lyme was contributing as he has received adequate treatment for this. - TSH, B12 levels both wnl. - head CT at admission with atrophy/ventriculomegaly but no ICH, CVA, etc. - RPR is nonreactive. - Ammonia levels wnl. - MRI brain 01/03 neg for acute findings (3) Delirium tremens: Plan: RESOLVED. - s/p ICU stay for his DTs - required Precedex drip, IV ativan frequently, etc. - s/p high-dose IV thiamine for numerous days. (4) Positive Lyme disease serology: Plan: - Western blot results -- IgM negative; IgG very positive with nearly all bands positive. - this would suggest early disseminated Lyme disease or later stage Lyme. since IgM was negative we are not dealing with acute/early stage Lyme. - s/p 15 days of IV rocephin -- converted to PO doxy 100mg BID x 14 days - this provided a total of 28 days of abx therapy for ?? chronic Lyme. (5) Hypertension: Plan: - Experienced hypertensive urgency earlier in hospitalization likely d/t agitation from acute withdrawal - BP still above goal - Started on a clonidine patch (for BP control and to help with withdrawal symptoms). Increase dose to 0.2 mg daily (6) Alcohol dependence: Plan: - Heavy EtOH use prior to admission, subsequently went through acute withdrawal/DTs requiring ICU stay, etc. (7) Hepatitis C: Plan: - Chronic, previously seen by ID in 2019 and was offered treatment, however declined at that time. - Reportedly has received hep A and B vaccines. - Had alcoholic hepatitis earlier this admission but LFTs normalized. - Patient with prior h/o drug abuse and had been incarcerated for illicit drugs in the past. (8) PUD (peptic ulcer disease): Plan: - cont PPI - duodenal bulb ulcer on recent EGD by Jada HUTCHINSON (9) Learning disabilities: Plan: see scanned neuropsych testing done in the early Plan: Unfortunately, pt's daughter is not legally his POA but is his next of kin and would be the primary decision maker by default. I do not believe that this pt has capacity to make his own decisions (which has been confirmed by psych) or sign paperwork to formally and legally appoint someone as POA. Bonnie Morris, pt's sister -- [phone] -- she resides in [place] Shefali Cavazos - daughter - [phone] -- provided update on 01/26 she is interested in being her father's POA as she is local in [place] and is next of kin Dispo -medically stable X weeks. Issue is placement at this point. Case management involved. May need locked memory support unit versus personal care facility (for which finances may pose a problem). Patient is a target and the office of aging is now involved to go through the target process. According to most recent CM note, bed available at [facility] but private pay only. This is waiting to be discussed with family. 02/02daughter updated Admission and Anticipated Discharge Date Admission Date: December 23, 2021 Supervising Physician Co-Signing Physician Notes reviewed and agree froy Massey PAC Subjective Patient seen on daily rounds today. On the phone with a family member when I entered. Vocalizes no significant complaints or concerns. Review of Systems Review of Systems: All systems reviewed and are unremarkable except as noted in HPI and below Denies fevers, chills, headache, nasal congestion, sore throat, cough, chest pain, shortness of breath, palpitations, orthopnea, PND, abdominal pain, nausea, vomiting, diarrhea, constipation, dysuria, hematuria, frequency, back pain, joint pain or swelling, easy bruising or bleeding, skin lesions or rashes. Physical Exam Physical Exam: GENERAL: 66 yo wd/wn WM. Awake, alert, but pleasantly confused. NAD. LUNGS: Clear to auscultation bilaterally. No W/R/R. CARDIOVASCULAR: Regular rate and rhythm. No M/G/R. ABDOMEN: Soft, non-tender and non-distended. BS normal x 4 quad. EXTREMITIES: No edema. Non-tender. Peripheral pulses +2/4. NEUROLOGIC: no gross neuro deficits PSYCHIATRIC: Pleasant, cooperative. SKIN: Warm, dry, intact. No rashes or lesions. Results & Data Results & Data ([facility]) Vital Signs (Past 12 Hours) Vital Signs Temp Pulse Pulse Resp BP Pulse Ox 02/06/22 08:04 68 02/06/22 06:39 36.3 C L 57 L 18 169/83 H 96 PG Care Time/CCT Total # of Minutes Spent Total Time Spent with Patient: Total time spent is greater than 50% in coordination of care (as documented) at patient's floor/unit and/or counseling patient: Coding Level of Care Code 38824 Subseq Hosp Care Lvl 1 Diagnoses Cognitive impairment R41.89 Encephalopathy G93.40 Delirium tremens F10.231 Positive Lyme disease serology R76.8 Hypertension I10 Alcohol dependence F10.251 Complication of substance-induced condition: with hallucinations Substance use status: alcohol-induced psychotic disorder Hepatitis C B19.20 PUD (peptic ulcer disease) K27.9 Learning disabilities F81.9 (1) Alcohol dependence Complication of substance-induced condition: with hallucinations Substance use status: alcohol-induced psychotic disorder Qualified Code(s): 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
[2022-02-06] MEDS: QUEtiapine FUMARATE 25 MG TABLET PO SCH ×2 (15:11→21:23)
[2022-02-07] MEDS: CHECK CLONIDINE PATCH PLACEMENT SCH ×3 (09:04→23:52)
[2022-02-07] MEDS: THIAMINE HCL 100 MG TAB PO SCH ×2 (09:11→20:21)
[2022-02-07] MEDS: POTASSIUM CHLORIDE PWD 20 MEQ PACK PO SCH ×2 (09:11→20:21)
[2022-02-07] MEDS: CEROVITE ADV FORMULA TAB PO SCH (09:12)
[2022-02-07] MEDS: METOPROLOL TARTRATE 25 MG TAB PO SCH ×2 (09:12→20:21)
[2022-02-07] MEDS: FOLIC ACID 1 MG TAB PO SCH (09:13)
[2022-02-07] MEDS: DOCUSATE SODIUM/SENNA 50/8.6MG TAB PO SCH (09:13)
--- NOTE | 2022-02-07 12:08 | Hospitalist Progress Note ---
Date of Service February 07, 2022 Assessment & Plan (1) Cognitive impairment: Plan: - Pt initially admitted for complicated EtOH withdrawal, diagnostically c/w encephalopathy/hypoactive delirium superimposed on dementia based on prior CT imaging with age-related microvascular changes and poor performance on mini-cog testing in 2019 - Currently on Seroquel 50mg HS (uptitrated 5/13 PM with favorable response) - Psych has been involved in his care. * Patient does answer questions appropriately although in discussion with psychiatry, his cognition fluctuates day-to-day. They feel he does not have capacity to make decisions - He does have IM Zyprexa ordered to be utilized as directed for agitation/aggressive behavior but has not needed it for weeks (2) Encephalopathy: Plan: RESOLVED and now at what seems to be his baseline mentation - Lyme Western Blot IgG VERY positive. Western blot IgM negative.Doubt Lyme was contributing as he has received adequate treatment for this. - TSH, B12 levels both wnl. - head CT at admission with atrophy/ventriculomegaly but no ICH, CVA, etc. - RPR is nonreactive. - Ammonia levels wnl. - MRI brain 01/03 neg for acute findings (3) Delirium tremens: Plan: RESOLVED. - s/p ICU stay for his DTs - required Precedex drip, IV ativan frequently, etc. - s/p high-dose IV thiamine for numerous days. (4) Positive Lyme disease serology: Plan: - Western blot results -- IgM negative; IgG very positive with nearly all bands positive. - this would suggest early disseminated Lyme disease or later stage Lyme. since IgM was negative we are not dealing with acute/early stage Lyme. - s/p 15 days of IV rocephin -- converted to PO doxy 100mg BID x 14 days - this provided a total of 28 days of abx therapy for ?? chronic Lyme. (5) Hypertension: Plan: - Experienced hypertensive urgency earlier in hospitalization likely d/t agitation from acute withdrawal - BP still above goal - Started on a clonidine patch (for BP control and to help with withdrawal symptoms). Increase dose to 0.2 mg daily (6) Alcohol dependence: Plan: - Heavy EtOH use prior to admission, subsequently went through acute withdrawal/DTs requiring ICU stay, etc. (7) Hepatitis C: Plan: - Chronic, previously seen by ID in 2019 and was offered treatment, however declined at that time. - Reportedly has received hep A and B vaccines. - Had alcoholic hepatitis earlier this admission but LFTs normalized. - Patient with prior h/o drug abuse and had been incarcerated for illicit drugs in the past. (8) PUD (peptic ulcer disease): Plan: - cont PPI - duodenal bulb ulcer on recent EGD by Jada HUTCHINSON (9) Learning disabilities: Plan: see scanned neuropsych testing done in the early Plan: Unfortunately, pt's daughter is not legally his POA but is his next of kin and would be the primary decision maker by default. I do not believe that this pt has capacity to make his own decisions (which has been confirmed by psych) or sign paperwork to formally and legally appoint someone as POA. Bonnie Morris, pt's sister -- [phone] -- she resides in [place] Shefali Cavaozs - daughter - [phone] -- provided update on 01/26 she is interested in being her father's POA as she is local in [place] and is next of kin Dispo -medically stable X weeks. Issue is placement at this point. Case management involved. May need locked memory support unit versus personal care facility (for which finances may pose a problem). Patient is a target and the office of aging is now involved to go through the target process. According to most recent note, bed available at [facility] but private pay only. This is waiting to be discussed with family. 02/02daughter updated Admission and Anticipated Discharge Date Admission Date: December 23, 2021 Supervising Physician Co-Signing Physician Notes reviewed and agree froy Massey PAC Subjective Patient seen on daily rounds today. Vocalizes no significant complaints or concerns. Review of Systems Review of Systems: All systems reviewed and are unremarkable except as noted in HPI and below Denies fevers, chills, headache, nasal congestion, sore throat, cough, chest pain, shortness of breath, palpitations, orthopnea, PND, abdominal pain, nausea, vomiting, diarrhea, constipation, dysuria, hematuria, frequency, back pain, joint pain or swelling, easy bruising or bleeding, skin lesions or rashes. Physical Exam Physical Exam: GENERAL: 66 yo wd/wn WM. Awake, alert, but pleasantly confused. NAD. LUNGS: Clear to auscultation bilaterally. No W/R/R. CARDIOVASCULAR: Regular rate and rhythm. No M/G/R. ABDOMEN: Soft, non-tender and non-distended. BS normal x 4 quad. EXTREMITIES: No edema. Non-tender. Peripheral pulses +2/4. NEUROLOGIC: no gross neuro deficits PSYCHIATRIC: Pleasant, cooperative. SKIN: Warm, dry, intact. No rashes or lesions. Results & Data Results & Data ([facility]) Vital Signs (Past 12 Hours) Vital Signs Temp Pulse Resp BP Pulse Ox 02/07/22 07:14 36.6 C 65 16 155/95 H 97 PG Care Time/CCT Total # of Minutes Spent Total Time Spent with Patient: Total time spent is greater than 50% in coordination of care (as documented) at patient's floor/unit and/or counseling patient: Coding Level of Care Code 82998 Subseq Hosp Care Lvl 1 Diagnoses Cognitive impairment R41.89 Encephalopathy G93.40 Delirium tremens F10.231 Positive Lyme disease serology R76.8 Hypertension I10 Alcohol dependence F10.251 Complication of substance-induced condition: with hallucinations Substance use status: alcohol-induced psychotic disorder Hepatitis C B19.20 PUD (peptic ulcer disease) K27.9 Learning disabilities F81.9 (1) Alcohol dependence Complication of substance-induced condition: with hallucinations Substance use status: alcohol-induced psychotic disorder Qualified Code(s): 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
[2022-02-07] MEDS: QUEtiapine FUMARATE 25 MG TABLET PO SCH ×2 (14:37→20:21)
[2022-02-08] MEDS: CHECK CLONIDINE PATCH PLACEMENT SCH ×2 (07:58→16:11)
[2022-02-08] MEDS: POTASSIUM CHLORIDE PWD 20 MEQ PACK PO SCH ×2 (08:13→20:29)
[2022-02-08] MEDS: THIAMINE HCL 100 MG TAB PO SCH ×2 (08:17→20:28)
[2022-02-08] MEDS: METOPROLOL TARTRATE 25 MG TAB PO SCH ×2 (08:17→20:29)
[2022-02-08] MEDS: CEROVITE ADV FORMULA TAB PO SCH (08:17)
[2022-02-08] MEDS: DOCUSATE SODIUM/SENNA 50/8.6MG TAB PO SCH (08:17)
[2022-02-08] MEDS: FOLIC ACID 1 MG TAB PO SCH (08:18)
--- NOTE | 2022-02-08 11:51 | Hospitalist Progress Note ---
Date of Service February 08, 2022 Assessment & Plan (1) Cognitive impairment: Plan: - Pt initially admitted for complicated EtOH withdrawal, diagnostically c/w encephalopathy/hypoactive delirium superimposed on dementia based on prior CT imaging with age-related microvascular changes and poor performance on mini-cog testing in 2019 - Currently on Seroquel 50mg HS (uptitrated 5/13 PM with favorable response) - Psych has been involved in his care. * Patient does answer questions appropriately although in discussion with psychiatry, his cognition fluctuates day-to-day. They feel he does not have capacity to make decisions - He does have IM Zyprexa ordered to be utilized as directed for agitation/aggressive behavior but has not needed it for weeks (2) Encephalopathy: Plan: RESOLVED and now at what seems to be his baseline mentation - Lyme Western Blot IgG VERY positive. Western blot IgM negative.Doubt Lyme was contributing as he has received adequate treatment for this. - TSH, B12 levels both wnl. - head CT at admission with atrophy/ventriculomegaly but no ICH, CVA, etc. - RPR is nonreactive. - Ammonia levels wnl. - MRI brain 01/03 neg for acute findings (3) Delirium tremens: Plan: RESOLVED. - s/p ICU stay for his DTs - required Precedex drip, IV ativan frequently, etc. - s/p high-dose IV thiamine for numerous days. (4) Positive Lyme disease serology: Plan: - Western blot results -- IgM negative; IgG very positive with nearly all bands positive. - this would suggest early disseminated Lyme disease or later stage Lyme. since IgM was negative we are not dealing with acute/early stage Lyme. - s/p 15 days of IV rocephin -- converted to PO doxy 100mg BID x 14 days - this provided a total of 28 days of abx therapy for ?? chronic Lyme. (5) Hypertension: Plan: - Experienced hypertensive urgency earlier in hospitalization likely d/t agitation from acute withdrawal - BP still above goal - Started on a clonidine patch (for BP control and to help with withdrawal symptoms). Increase dose to 0.2 mg daily (6) Alcohol dependence: Plan: - Heavy EtOH use prior to admission, subsequently went through acute withdrawal/DTs requiring ICU stay, etc. (7) Hepatitis C: Plan: - Chronic, previously seen by ID in 2019 and was offered treatment, however declined at that time. - Reportedly has received hep A and B vaccines. - Had alcoholic hepatitis earlier this admission but LFTs normalized. - Patient with prior h/o drug abuse and had been incarcerated for illicit drugs in the past. (8) PUD (peptic ulcer disease): Plan: - cont PPI - duodenal bulb ulcer on recent EGD by Jada HUTCHINSON (9) Learning disabilities: Plan: see scanned neuropsych testing done in the early Plan: Bonnie Morris, pt's sister -- [phone] -- she resides in [place] Shefali Cavazos - daughter - [phone] -- provided update on 01/26 Dispo -medically stable X weeks. Issue is placement at this point. Case management involved. May need locked memory support unit versus personal care facility (for which finances may pose a problem). Patient is a target and the office of aging is now involved to go through the target process. According to most recent CM note, additional referrals sent. Daughter was able to obtain POA. 02/02daughter updated Admission and Anticipated Discharge Date Admission Date: December 23, 2021 Supervising Physician Co-Signing Physician Notes reviewed and agree froy Massey PAC Subjective Patient seen on daily rounds today. Vocalizes no significant complaints or concerns. Review of Systems Review of Systems: All systems reviewed and are unremarkable except as noted in HPI and below Denies fevers, chills, headache, nasal congestion, sore throat, cough, chest pain, shortness of breath, palpitations, orthopnea, PND, abdominal pain, nausea, vomiting, diarrhea, constipation, dysuria, hematuria, frequency, back pain, joint pain or swelling, easy bruising or bleeding, skin lesions or rashes. Physical Exam Physical Exam: GENERAL: 66 yo wd/wn WM. Awake, alert, but pleasantly confused. NAD. LUNGS: Clear to auscultation bilaterally. No W/R/R. CARDIOVASCULAR: Regular rate and rhythm. No M/G/R. ABDOMEN: Soft, non-tender and non-distended. BS normal x 4 quad. EXTREMITIES: No edema. Non-tender. Peripheral pulses +2/4. NEUROLOGIC: no gross neuro deficits PSYCHIATRIC: Pleasant, cooperative. SKIN: Warm, dry, intact. No rashes or lesions. Results & Data Results & Data ([facility]) Vital Signs (Past 12 Hours) Vital Signs Temp Pulse Pulse Resp BP Pulse Ox 02/08/22 08:14 72 02/08/22 07:37 36.5 C 49 L 18 163/80 H 98 PG Care Time/CCT Total # of Minutes Spent Total Time Spent with Patient: Total time spent is greater than 50% in coordination of care (as documented) at patient's floor/unit and/or counseling patient: Coding Level of Care Code 34176 Subseq Hosp Care Lvl 1 Diagnoses Cognitive impairment R41.89 Encephalopathy G93.40 Delirium tremens F10.231 Positive Lyme disease serology R76.8 Hypertension I10 Alcohol dependence F10.251 Complication of substance-induced condition: with hallucinations Substance use status: alcohol-induced psychotic disorder Hepatitis C B19.20 PUD (peptic ulcer disease) K27.9 Learning disabilities F81.9 (1) Alcohol dependence Complication of substance-induced condition: with hallucinations Substance use status: alcohol-induced psychotic disorder Qualified Code(s): 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
[2022-02-08] MEDS: QUEtiapine FUMARATE 25 MG TABLET PO SCH ×2 (16:11→20:28)
[2022-02-09] MEDS: CHECK CLONIDINE PATCH PLACEMENT SCH ×3 (01:04→16:06)
[2022-02-09] MEDS: METOPROLOL TARTRATE 25 MG TAB PO SCH ×2 (08:28→20:07)
[2022-02-09] MEDS: FOLIC ACID 1 MG TAB PO SCH (08:28)
[2022-02-09] MEDS: DOCUSATE SODIUM/SENNA 50/8.6MG TAB PO SCH (08:28)
[2022-02-09] MEDS: POTASSIUM CHLORIDE PWD 20 MEQ PACK PO SCH ×2 (08:29→20:02)
[2022-02-09] MEDS: THIAMINE HCL 100 MG TAB PO SCH ×2 (08:29→20:04)
[2022-02-09] MEDS: CEROVITE ADV FORMULA TAB PO SCH (08:29)
--- NOTE | 2022-02-09 11:17 | Hospitalist Progress Note ---
Date of Service February 09, 2022 Assessment & Plan (1) Cognitive impairment: Plan: - Pt initially admitted for complicated EtOH withdrawal, diagnostically c/w encephalopathy/hypoactive delirium superimposed on dementia based on prior CT imaging with age-related microvascular changes and poor performance on mini-cog testing in 2019 - Currently on Seroquel 50mg HS (uptitrated 5/13 PM with favorable response) - Psych has been involved in his care. * Patient does answer questions appropriately although in discussion with psychiatry, his cognition fluctuates day-to-day. They feel he does not have capacity to make decisions - He does have IM Zyprexa ordered to be utilized as directed for agitation/aggressive behavior but has not needed it for weeks (2) Encephalopathy: Plan: RESOLVED and now at what seems to be his baseline mentation - Lyme Western Blot IgG VERY positive. Western blot IgM negative.Doubt Lyme was contributing as he has received adequate treatment for this. - TSH, B12 levels both wnl. - head CT at admission with atrophy/ventriculomegaly but no ICH, CVA, etc. - RPR is nonreactive. - Ammonia levels wnl. - MRI brain 01/03 neg for acute findings (3) Delirium tremens: Plan: RESOLVED. - s/p ICU stay for his DTs - required Precedex drip, IV ativan frequently, etc. - s/p high-dose IV thiamine for numerous days. (4) Positive Lyme disease serology: Plan: - Western blot results -- IgM negative; IgG very positive with nearly all bands positive. - this would suggest early disseminated Lyme disease or later stage Lyme. since IgM was negative we are not dealing with acute/early stage Lyme. - s/p 15 days of IV rocephin -- converted to PO doxy 100mg BID x 14 days - this provided a total of 28 days of abx therapy for ?? chronic Lyme. (5) Hypertension: Plan: - Experienced hypertensive urgency earlier in hospitalization likely d/t agitation from acute withdrawal - BP still above goal - Started on a clonidine patch (for BP control and to help with withdrawal symptoms). Increase dose to 0.2 mg daily (6) Alcohol dependence: Plan: - Heavy EtOH use prior to admission, subsequently went through acute withdrawal/DTs requiring ICU stay, etc. (7) Hepatitis C: Plan: - Chronic, previously seen by ID in 2019 and was offered treatment, however declined at that time. - Reportedly has received hep A and B vaccines. - Had alcoholic hepatitis earlier this admission but LFTs normalized. - Patient with prior h/o drug abuse and had been incarcerated for illicit drugs in the past. (8) PUD (peptic ulcer disease): Plan: - cont PPI - duodenal bulb ulcer on recent EGD by Jada HUTCHINSON (9) Learning disabilities: Plan: see scanned neuropsych testing done in the early Plan: Bonnie Morris, pt's sister -- [phone] -- she resides in [place] Shefali Cavazos - daughter - [phone] Dispo -medically stable X weeks. Issue is placement at this point. Case management involved. May need locked memory support unit versus personal care facility (for which finances may pose a problem). Patient is a target and the office of aging is now involved to go through the target process. According to most recent CM note, additional referrals sent. Daughter was able to obtain POA. 02/02daughter updated Admission and Anticipated Discharge Date Admission Date: December 23, 2021 Subjective Patient seen on daily rounds today. Vocalizes no significant complaints or concerns. Review of Systems Review of Systems: All systems reviewed and are unremarkable except as noted in HPI and below Denies fevers, chills, headache, nasal congestion, sore throat, cough, chest pain, shortness of breath, palpitations, orthopnea, PND, abdominal pain, nausea, vomiting, diarrhea, constipation, dysuria, hematuria, frequency, back pain, joint pain or swelling, easy bruising or bleeding, skin lesions or rashes. Physical Exam Physical Exam: GENERAL: 66 yo wd/wn WM. Awake, alert, but pleasantly confused. NAD. LUNGS: Clear to auscultation bilaterally. No W/R/R. CARDIOVASCULAR: Regular rate and rhythm. No M/G/R. ABDOMEN: Soft, non-tender and non-distended. BS normal x 4 quad. EXTREMITIES: No edema. Non-tender. Peripheral pulses +2/4. NEUROLOGIC: no gross neuro deficits PSYCHIATRIC: Pleasant, cooperative. SKIN: Warm, dry, intact. No rashes or lesions. Results & Data Results & Data ([facility]) Vital Signs (Past 12 Hours) Vital Signs Temp Pulse Pulse Resp BP Pulse Ox 02/09/22 08:27 74 156/91 H 02/09/22 06:48 36.4 C L 74 16 149/95 H 97 PG Care Time/CCT Total # of Minutes Spent Total Time Spent with Patient: Total time spent is greater than 50% in coordination of care (as documented) at patient's floor/unit and/or counseling patient: Coding Level of Care Code 13952 Subseq Hosp Care Lvl 1 Diagnoses Cognitive impairment R41.89 Encephalopathy G93.40 Delirium tremens F10.231 Positive Lyme disease serology R76.8 Hypertension I10 Alcohol dependence F10.251 Complication of substance-induced condition: with hallucinations Substance use status: alcohol-induced psychotic disorder Hepatitis C B19.20 PUD (peptic ulcer disease) K27.9 Learning disabilities F81.9 (1) Alcohol dependence Complication of substance-induced condition: with hallucinations Substance use status: alcohol-induced psychotic disorder Qualified Code(s): 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
[2022-02-09] MEDS: QUEtiapine FUMARATE 25 MG TABLET PO SCH ×3 (16:06→20:04)
[2022-02-10] MEDS: CHECK CLONIDINE PATCH PLACEMENT SCH ×3 (00:24→15:51)
[2022-02-10] MEDS: CEROVITE ADV FORMULA TAB PO SCH (08:28)
[2022-02-10] MEDS: METOPROLOL TARTRATE 25 MG TAB PO SCH ×2 (08:28→20:30)
[2022-02-10] MEDS: DOCUSATE SODIUM/SENNA 50/8.6MG TAB PO SCH (08:28)
[2022-02-10] MEDS: POTASSIUM CHLORIDE PWD 20 MEQ PACK PO SCH ×2 (08:29→20:30)
--- NOTE | 2022-02-10 11:05 | Hospitalist Progress Note ---
Date of Service February 10, 2022 Assessment & Plan (1) Cognitive impairment: Plan: - Pt initially admitted for complicated EtOH withdrawal, diagnostically c/w encephalopathy/hypoactive delirium superimposed on dementia based on prior CT imaging with age-related microvascular changes and poor performance on mini-cog testing in 2019 - Currently on Seroquel 50mg HS (uptitrated 5/13 PM with favorable response) - Psych has been involved in his care. * Patient does answer questions appropriately although in discussion with psychiatry, his cognition fluctuates day-to-day. They feel he does not have capacity to make decisions - He does have IM Zyprexa ordered to be utilized as directed for agitation/aggressive behavior but has not needed it for weeks (2) Encephalopathy: Plan: RESOLVED and now at what seems to be his baseline mentation - Lyme Western Blot IgG VERY positive. Western blot IgM negative.Doubt Lyme was contributing as he has received adequate treatment for this. - TSH, B12 levels both wnl. - head CT at admission with atrophy/ventriculomegaly but no ICH, CVA, etc. - RPR is nonreactive. - Ammonia levels wnl. - MRI brain 01/03 neg for acute findings (3) Delirium tremens: Plan: RESOLVED. - s/p ICU stay for his DTs - required Precedex drip, IV ativan frequently, etc. - s/p high-dose IV thiamine for numerous days. (4) Positive Lyme disease serology: Plan: - Western blot results -- IgM negative; IgG very positive with nearly all bands positive. - this would suggest early disseminated Lyme disease or later stage Lyme. since IgM was negative we are not dealing with acute/early stage Lyme. - s/p 15 days of IV rocephin -- converted to PO doxy 100mg BID x 14 days - this provided a total of 28 days of abx therapy for ?? chronic Lyme. (5) Hypertension: Plan: - Experienced hypertensive urgency earlier in hospitalization likely d/t agitation from acute withdrawal - BP still above goal - Started on a clonidine patch (for BP control and to help with withdrawal symptoms). Increase dose to 0.2 mg daily (6) Alcohol dependence: Plan: - Heavy EtOH use prior to admission, subsequently went through acute withdrawal/DTs requiring ICU stay, etc. (7) Hepatitis C: Plan: - Chronic, previously seen by ID in 2019 and was offered treatment, however declined at that time. - Reportedly has received hep A and B vaccines. - Had alcoholic hepatitis earlier this admission but LFTs normalized. - Patient with prior h/o drug abuse and had been incarcerated for illicit drugs in the past. (8) PUD (peptic ulcer disease): Plan: - cont PPI - duodenal bulb ulcer on recent EGD by Jada HUTCHINSON (9) Learning disabilities: Plan: see scanned neuropsych testing done in the early Plan: Bonnie Morris, pt's sister -- [phone] -- she resides in [place] Shefali Cavazos - daughter - [phone] Dispo -medically stable X weeks. Issue is placement at this point. Case management involved. May need locked memory support unit versus personal care facility (for which finances may pose a problem). Patient is a target and the office of aging is now involved to go through the target process. According to most recent CM note, additional referrals sent. Daughter was able to obtain POA. 02/02daughter updated Admission and Anticipated Discharge Date Admission Date: December 23, 2021 Subjective Patient seen on daily rounds today. Vocalizes no significant complaints or concerns. Review of Systems Review of Systems: All systems reviewed and are unremarkable except as noted in HPI and below Denies fevers, chills, headache, nasal congestion, sore throat, cough, chest pain, shortness of breath, palpitations, orthopnea, PND, abdominal pain, nausea, vomiting, diarrhea, constipation, dysuria, hematuria, frequency, back pain, joint pain or swelling, easy bruising or bleeding, skin lesions or rashes. Physical Exam Physical Exam: GENERAL: 66 yo wd/wn WM. Awake, alert, but pleasantly confused. NAD. LUNGS: Clear to auscultation bilaterally. No W/R/R. CARDIOVASCULAR: Regular rate and rhythm. No M/G/R. ABDOMEN: Soft, non-tender and non-distended. BS normal x 4 quad. EXTREMITIES: No edema. Non-tender. Peripheral pulses +2/4. PSYCHIATRIC: Pleasant, cooperative. SKIN: Warm, dry, intact. No rashes or lesions. Results & Data Results & Data ([facility]) Vital Signs (Past 12 Hours) Vital Signs Temp Pulse Resp BP Pulse Ox 02/10/22 07:02 36.3 C L 59 L 17 164/94 H 98 PG Care Time/CCT Total # of Minutes Spent Total Time Spent with Patient: Total time spent is greater than 50% in coordination of care (as documented) at patient's floor/unit and/or counseling patient: Coding Level of Care Code 99114 Subseq Hosp Care Lvl 1 Diagnoses Cognitive impairment R41.89 Encephalopathy G93.40 Delirium tremens F10.231 Positive Lyme disease serology R76.8 Hypertension I10 Alcohol dependence F10.251 Complication of substance-induced condition: with hallucinations Substance use status: alcohol-induced psychotic disorder Hepatitis C B19.20 PUD (peptic ulcer disease) K27.9 Learning disabilities F81.9 (1) Alcohol dependence Complication of substance-induced condition: with hallucinations Substance use status: alcohol-induced psychotic disorder Qualified Code(s): 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
[2022-02-10] MEDS: QUEtiapine FUMARATE 25 MG TABLET PO SCH (20:30)
[2022-02-11] MEDS: CHECK CLONIDINE PATCH PLACEMENT SCH ×4 (00:43→19:49)
[2022-02-11] MEDS: METOPROLOL TARTRATE 25 MG TAB PO SCH ×2 (08:39→19:46)
[2022-02-11] MEDS: POTASSIUM CHLORIDE PWD 20 MEQ PACK PO SCH (08:39)
[2022-02-11] MEDS: CEROVITE ADV FORMULA TAB PO SCH (08:39)
[2022-02-11] MEDS: DOCUSATE SODIUM/SENNA 50/8.6MG TAB PO SCH (08:40)
--- NOTE | 2022-02-11 12:24 | Hospitalist Progress Note ---
Date of Service February 11, 2022 Assessment & Plan (1) Cognitive impairment: Plan: - Pt initially admitted for complicated EtOH withdrawal, diagnostically c/w encephalopathy/hypoactive delirium superimposed on dementia based on prior CT imaging with age-related microvascular changes and poor performance on mini-cog testing in 2019 - Currently on Seroquel 50mg HS (uptitrated 5/13 PM with favorable response) - Psych has been involved in his care. * Patient does answer questions appropriately although in discussion with psychiatry, his cognition fluctuates day-to-day. They feel he does not have capacity to make decisions - He does have IM Zyprexa ordered to be utilized as directed for agitation/aggressive behavior but has not needed it for weeks (2) Encephalopathy: Plan: RESOLVED and now at what seems to be his baseline mentation - Lyme Western Blot IgG VERY positive. Western blot IgM negative.Doubt Lyme was contributing as he has received adequate treatment for this. - TSH, B12 levels both wnl. - head CT at admission with atrophy/ventriculomegaly but no ICH, CVA, etc. - RPR is nonreactive. - Ammonia levels wnl. - MRI brain 01/03 neg for acute findings (3) Delirium tremens: Plan: RESOLVED. - s/p ICU stay for his DTs - required Precedex drip, IV ativan frequently, etc. - s/p high-dose IV thiamine for numerous days. (4) Positive Lyme disease serology: Plan: - Western blot results -- IgM negative; IgG very positive with nearly all bands positive. - this would suggest early disseminated Lyme disease or later stage Lyme. since IgM was negative we are not dealing with acute/early stage Lyme. - s/p 15 days of IV rocephin -- converted to PO doxy 100mg BID x 14 days - this provided a total of 28 days of abx therapy for ?? chronic Lyme. (5) Hypertension: Plan: - Experienced hypertensive urgency earlier in hospitalization likely d/t agitation from acute withdrawal - BP still above goal - Started on a clonidine patch (for BP control and to help with withdrawal symptoms). Increase dose to 0.2 mg daily (6) Alcohol dependence: Plan: - Heavy EtOH use prior to admission, subsequently went through acute withdrawal/DTs requiring ICU stay, etc. (7) Hepatitis C: Plan: - Chronic, previously seen by ID in 2019 and was offered treatment, however declined at that time. - Reportedly has received hep A and B vaccines. - Had alcoholic hepatitis earlier this admission but LFTs normalized. - Patient with prior h/o drug abuse and had been incarcerated for illicit drugs in the past. (8) PUD (peptic ulcer disease): Plan: - cont PPI - duodenal bulb ulcer on recent EGD by Jada HUTCHINSON (9) Learning disabilities: Plan: see scanned neuropsych testing done in the early Plan: Bonnie Morris, pt's sister -- [phone] -- she resides in [place] Shefali Cavazos - daughter - [phone] Dispo -medically stable X weeks. Issue is placement at this point. Case management involved. May need locked memory support unit versus personal care facility (for which finances may pose a problem). Target process complete. According to most recent CM note, additional referrals sent. Daughter was able to obtain POA. He was approved for medicaid. CM is interacting with daughter primarily as he has been medically stable for several weeks. Certainly will keep her updated if anything medically should arise. Admission and Anticipated Discharge Date Admission Date: December 23, 2021 Subjective Patient seen on daily rounds today. Vocalizes no significant complaints or concerns. Review of Systems Review of Systems: All systems reviewed and are unremarkable except as noted in HPI and below Denies fevers, chills, headache, nasal congestion, sore throat, cough, chest pain, shortness of breath, palpitations, orthopnea, PND, abdominal pain, nausea, vomiting, diarrhea, constipation, dysuria, hematuria, frequency, back pain, joint pain or swelling, easy bruising or bleeding, skin lesions or rashes. Physical Exam Physical Exam: GENERAL: 66 yo wd/wn WM. Awake, alert, but pleasantly confused. NAD. LUNGS: Clear to auscultation bilaterally. No W/R/R. CARDIOVASCULAR: Regular rate and rhythm. No M/G/R. ABDOMEN: Soft, non-tender and non-distended. BS normal x 4 quad. EXTREMITIES: No edema. Non-tender. Peripheral pulses +2/4. PSYCHIATRIC: Pleasant, cooperative. SKIN: Warm, dry, intact. No rashes or lesions. Results & Data Results & Data ([facility]) Vital Signs (Past 12 Hours) Vital Signs Temp Pulse Resp BP Pulse Ox 06/01/22 07:30 36.3 C L 72 16 124/82 96 PG Care Time/CCT Total # of Minutes Spent Total Time Spent with Patient: Total time spent is greater than 50% in coordination of care (as documented) at patient's floor/unit and/or counseling patient: Coding Level of Care Code 33886 Subseq Hosp Care Lvl 1 Diagnoses Cognitive impairment R41.89 Encephalopathy G93.40 Delirium tremens F10.231 Positive Lyme disease serology R76.8 Hypertension I10 Alcohol dependence F10.251 Complication of substance-induced condition: with hallucinations Substance use status: alcohol-induced psychotic disorder Hepatitis C B19.20 PUD (peptic ulcer disease) K27.9 Learning disabilities F81.9 (1) Alcohol dependence Complication of substance-induced condition: with hallucinations Substance use status: alcohol-induced psychotic disorder Qualified Code(s): 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
[2022-02-11] MEDS: QUEtiapine FUMARATE 25 MG TABLET PO SCH ×2 (16:39→19:46)
[2022-02-12] MEDS: CEROVITE ADV FORMULA TAB PO SCH (07:38)
[2022-02-12] MEDS: CHECK CLONIDINE PATCH PLACEMENT SCH ×3 (07:40→19:45)
[2022-02-12] MEDS: METOPROLOL TARTRATE 25 MG TAB PO SCH ×2 (07:40→19:43)
[2022-02-12] MEDS: DOCUSATE SODIUM/SENNA 50/8.6MG TAB PO SCH (07:40)
--- NOTE | 2022-02-12 14:17 | Hospitalist Progress Note ---
Date of Service February 12, 2022 Assessment & Plan (1) Cognitive impairment: Plan: - Pt initially admitted for complicated EtOH withdrawal, diagnostically c/w encephalopathy/hypoactive delirium superimposed on dementia based on prior CT imaging with age-related microvascular changes and poor performance on mini-cog testing in 2019 - Currently on Seroquel 50mg HS (uptitrated 5/13 PM with favorable response) - Psych has been involved in his care. * Patient does answer questions appropriately although in discussion with psychiatry, his cognition fluctuates day-to-day. They feel he does not have capacity to make decisions - He does have IM Zyprexa ordered to be utilized as directed for agitation/aggressive behavior but has not needed it for weeks - Mentation has improved greatly throughout this hospital stay (2) Encephalopathy: Plan: RESOLVED and now at what seems to be his baseline mentation - Lyme Western Blot IgG VERY positive. Western blot IgM negative.Doubt Lyme was contributing as he has received adequate treatment for this. - TSH, B12 levels both wnl. - head CT at admission with atrophy/ventriculomegaly but no ICH, CVA, etc. - RPR is nonreactive. - Ammonia levels wnl. - MRI brain 01/03 neg for acute findings (3) Delirium tremens: Plan: RESOLVED. - s/p ICU stay for his DTs - required Precedex drip, IV ativan frequently, etc. - s/p high-dose IV thiamine for numerous days. (4) Positive Lyme disease serology: Plan: - Western blot results -- IgM negative; IgG very positive with nearly all bands positive. - this would suggest early disseminated Lyme disease or later stage Lyme. since IgM was negative we are not dealing with acute/early stage Lyme. - s/p 15 days of IV rocephin -- converted to PO doxy 100mg BID x 14 days - this provided a total of 28 days of abx therapy for ?? chronic Lyme. (5) Hypertension: Plan: - Experienced hypertensive urgency earlier in hospitalization likely d/t agitation from acute withdrawal - Clonidine patch started upfront for added blood pressure control and to aid with his alcohol withdrawal symptoms. Increased to 0.2 mg and BP now acceptable (129/86) (6) Alcohol dependence: Plan: - Heavy EtOH use prior to admission, subsequently went through acute withdrawal/DTs requiring ICU stay, etc. (7) Hepatitis C: Plan: - Chronic, previously seen by ID in 2019 and was offered treatment, however declined at that time. - Reportedly has received hep A and B vaccines. - Had alcoholic hepatitis earlier this admission but LFTs normalized. - Patient with prior h/o drug abuse and had been incarcerated for illicit drugs in the past. (8) PUD (peptic ulcer disease): Plan: - cont PPI - duodenal bulb ulcer on recent EGD by [facility] (9) Learning disabilities: Plan: see scanned neuropsych testing done in the early Plan: Bonnie Morris, pt's sister -- [phone] -- she resides in [place] Shefali Bluffton - daughter - [phone] Dispo -medically stable X weeks. Issue is placement at this point. Case management involved. Target process complete. Does not require locked memory support unit and has no skilled needs. Now approved for Medicaid. Needs personal care facility but finances seem to be an issue. Case management working on this. Daughter was able to obtain POA. Admission and Anticipated Discharge Date Admission Date: December 23, 2021 Subjective Patient seen on daily rounds today. Vocalizes no complaints or concerns. Denies fevers, chills, chest pain, shortness of breath, abdominal pain, nausea or vomiting. Aware that he remains in the hospital until a safe disposition can be found. Review of Systems Review of Systems: All systems reviewed and are unremarkable except as noted in HPI and below Denies fevers, chills, headache, nasal congestion, sore throat, cough, chest pain, shortness of breath, palpitations, orthopnea, PND, abdominal pain, nausea, vomiting, diarrhea, constipation, dysuria, hematuria, frequency, back pain, joint pain or swelling, easy bruising or bleeding, skin lesions or rashes. Physical Exam Physical Exam: General: Resting comfortably in his hospital bed. NAD. HEENT: Head is AT/NC. Buccal mucosa is moist and pink Neck: No JVD. Negative hepatojugular reflex Cardiac: RRR without M/G/R Lungs: CTA without W/R/R Abdomen: Normoactive X4. Soft and nontender in all quadrants. Extremities: No peripheral clubbing cyanosis or edema Neuro: ANO X4. Cranial nerves II through XII are grossly intact. No focal neuro deficits Skin: No obvious skin lesions or rashes Psych: Appropriate affect. Pleasant and cooperative Results & Data Results & Data ([facility]) Vital Signs (Past 12 Hours) Vital Signs Temp Pulse Resp BP Pulse Ox 02/12/22 07:13 36.4 C L 67 16 129/86 94 PG Care Time/CCT Total # of Minutes Spent Total Time Spent with Patient: Total time spent is greater than 50% in coordination of care (as documented) at patient's floor/unit and/or counseling patient: Coding Level of Care Code 89339 Subseq Hosp Care Lvl 1 Diagnoses Cognitive impairment R41.89 Encephalopathy G93.40 Delirium tremens F10.231 Positive Lyme disease serology R76.8 Hypertension I10 Alcohol dependence F10.251 Complication of substance-induced condition: with hallucinations Substance use status: alcohol-induced psychotic disorder Hepatitis C B19.20 PUD (peptic ulcer disease) K27.9 Learning disabilities F81.9 (1) Alcohol dependence Complication of substance-induced condition: with hallucinations Substance use status: alcohol-induced psychotic disorder Qualified Code(s): 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
[2022-02-12] MEDS: QUEtiapine FUMARATE 25 MG TABLET PO SCH ×2 (16:25→19:42)
[2022-02-13] MEDS: CEROVITE ADV FORMULA TAB PO SCH (08:39)
[2022-02-13] MEDS: METOPROLOL TARTRATE 25 MG TAB PO SCH ×2 (08:40→22:04)
[2022-02-13] MEDS: DOCUSATE SODIUM/SENNA 50/8.6MG TAB PO SCH (08:40)
[2022-02-13] MEDS: CHECK CLONIDINE PATCH PLACEMENT SCH ×3 (08:40→23:26)
[2022-02-13] MEDS: QUEtiapine FUMARATE 25 MG TABLET PO SCH ×2 (15:30→20:54)
[2022-02-13] MEDS: POLYETHYLENE (MIRALAX) 17 GM PACK PO PRN (15:37)
--- NOTE | 2022-02-13 17:25 | Hospitalist Progress Note ---
Date of Service February 13, 2022 Assessment & Plan (1) Cognitive impairment: Plan: - Pt initially admitted for complicated EtOH withdrawal, diagnostically c/w encephalopathy/hypoactive delirium superimposed on dementia based on prior CT imaging with age-related microvascular changes and poor performance on mini-cog testing in 2019 - Currently on Seroquel 50mg HS (uptitrated 5/13 PM with favorable response) - Psych has been involved in his care. * Seen by psychiatry earlier in his hospital stay and deemed to not have mental capacity to make medical decisions - He does have IM Zyprexa ordered to be utilized as directed for agitation/aggressive behavior but has not needed it for weeks - Has shown significant favorable response in his cognition during this hospitalization. Updated D/W Dr. Angulo (psychiatry) on 02/13 given his improvement. Will inquire further (with patient) regarding ability to meet his needs (get food, basic hygiene supplies) if discharged to an independent living environment. Will also plan to talk with family to see how then would feel about this. (2) Encephalopathy: Plan: RESOLVED and now at what seems to be his baseline mentation - Lyme Western Blot IgG VERY positive. Western blot IgM negative.Doubt Lyme was contributing as he has received adequate treatment for this. - TSH, B12 levels both wnl. - head CT at admission with atrophy/ventriculomegaly but no ICH, CVA, etc. - RPR is nonreactive. - Ammonia levels wnl. - MRI brain 01/03 neg for acute findings (3) Delirium tremens: Plan: RESOLVED. - s/p ICU stay for his DTs - required Precedex drip, IV ativan frequently, etc. - s/p high-dose IV thiamine for numerous days. (4) Positive Lyme disease serology: Plan: - Western blot results -- IgM negative; IgG very positive with nearly all bands positive. - this would suggest early disseminated Lyme disease or later stage Lyme. since IgM was negative we are not dealing with acute/early stage Lyme. - s/p 15 days of IV rocephin -- converted to PO doxy 100mg BID x 14 days - this provided a total of 28 days of abx therapy for ?? chronic Lyme. (5) Hypertension: Plan: - Experienced hypertensive urgency earlier in hospitalization likely d/t agitation from acute withdrawal - Clonidine patch started upfront for added blood pressure control and to aid with his alcohol withdrawal symptoms. Increased to 0.2 mg and BP now acceptable (129/86) (6) Alcohol dependence: Plan: - Heavy EtOH use prior to admission, subsequently went through acute withdrawal/DTs requiring ICU stay, etc. (7) Hepatitis C: Plan: - Chronic, previously seen by ID in 2019 and was offered treatment, however declined at that time. - Reportedly has received hep A and B vaccines. - Had alcoholic hepatitis earlier this admission but LFTs normalized. - Patient with prior h/o drug abuse and had been incarcerated for illicit drugs in the past. (8) PUD (peptic ulcer disease): Plan: - cont PPI - duodenal bulb ulcer on recent EGD by [facility] (9) Learning disabilities: Plan: see scanned neuropsych testing done in the early Plan: Bonnie Morris, pt's sister -- [phone] -- she resides in [place] Shefali Cavazos - daughter - [phone] Dispo -medically stable X weeks. Issue is placement at this point. Case management involved. Target process complete. Does not require locked memory support unit and has no skilled needs. Now approved for Medicaid. Needs personal care facility but finances seem to be an issue. Case management working on this. Daughter was able to obtain POA. Admission and Anticipated Discharge Date Admission Date: December 23, 2021 Subjective Patient seen on daily rounds today. Vocalizes no complaints or concerns. Denies fevers, chills, chest pain, shortness of breath, abdominal pain, nausea or vomiting. Aware that he remains in the hospital until a safe disposition can be found. Review of Systems Review of Systems: All systems reviewed and are unremarkable except as noted in HPI and below Denies fevers, chills, headache, nasal congestion, sore throat, cough, chest pain, shortness of breath, palpitations, orthopnea, PND, abdominal pain, nausea, vomiting, diarrhea, constipation, dysuria, hematuria, frequency, back pain, joint pain or swelling, easy bruising or bleeding, skin lesions or rashes. Physical Exam Physical Exam: General: Resting comfortably in his hospital bed. NAD. HEENT: Head is AT/NC. Buccal mucosa is moist and pink Neck: No JVD. Negative hepatojugular reflex Cardiac: RRR without M/G/R Lungs: CTA without W/R/R Abdomen: Normoactive X4. Soft and nontender in all quadrants. Extremities: No peripheral clubbing cyanosis or edema Neuro: ANO X4. Cranial nerves II through XII are grossly intact. No focal neuro deficits Skin: No obvious skin lesions or rashes Psych: Appropriate affect. Pleasant and cooperative Results & Data Results & Data ([facility]) Vital Signs (Past 12 Hours) Vital Signs Temp Pulse Resp BP Pulse Ox 02/13/22 15:44 36.6 C 64 18 143/81 H 98 02/13/22 07:07 36.8 C 63 18 165/89 H 91 Laboratory Results No lab data today PG Care Time/CCT Total # of Minutes Spent Total Time Spent with Patient: Total time spent is greater than 50% in coordination of care (as documented) at patient's floor/unit and/or counseling patient: Coding Level of Care Code 73291 Subseq Hosp Care Lvl 1 Diagnoses Cognitive impairment R41.89 Encephalopathy G93.40 Delirium tremens F10.231 Positive Lyme disease serology R76.8 Hypertension I10 Alcohol dependence F10.251 Complication of substance-induced condition: with hallucinations Substance use status: alcohol-induced psychotic disorder Hepatitis C B19.20 PUD (peptic ulcer disease) K27.9 Learning disabilities F81.9 (1) Alcohol dependence Complication of substance-induced condition: with hallucinations Substance use status: alcohol-induced psychotic disorder Qualified Code(s): 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
[2022-02-14] MEDS: CEROVITE ADV FORMULA TAB PO SCH (08:30)
[2022-02-14] MEDS: DOCUSATE SODIUM/SENNA 50/8.6MG TAB PO SCH (08:30)
[2022-02-14] MEDS: METOPROLOL TARTRATE 25 MG TAB PO SCH ×2 (08:31→20:01)
[2022-02-14] MEDS: CHECK CLONIDINE PATCH PLACEMENT SCH ×3 (08:31→23:12)
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
[2022-02-14] MEDS: QUEtiapine FUMARATE 25 MG TABLET PO SCH ×2 (16:40→20:02)
[2022-02-15 07:27] LABS: Hematocrit (blood only) 40.2 % (42-52); Hemoglobin 13.3 g/dL (14.0-18.0); Mean Corpuscular Hemoglobin 28.7 pg (25-34); Mean Corpuscular Hgb Conc 33.1 g/dL (32-36); Mean Corpuscular Volume 86.6 fL (80-100); Mean Platelet Volume 12.3 fL (7.4-10.4); Platelet Count 167 K/uL (130-400); RDW Coefficient of Variation 14.3 % (11.5-14.5); Red Blood Count 4.64 M/uL (4.7-6.1); White Blood Count 4.96 K/uL (4.8-10.8)
[2022-02-15 07:44] LABS: Prothrombin Time 10.7 Seconds (9.0-12.0)
[2022-02-15 07:55] LABS: Albumin Globulin Ratio 1.1 (0.9-2); Albumin Level 4.1 gm/dl (3.4-5.0); Bilirubin,Total 0.5 mg/dl (0.2-1.0); Calcium 9.5 mg/dl (8.5-10.1); Creatinine Clr Calc Pharmacy 95.6 ml/min; Est GFR (Non-African American) 94.9 ml/min; Globulin 3.7 gm/dl (2.5-4.0); Magnesium 1.8 mg/dl (1.7-2.4); Potassium 3.8 mmol/L (3.5-5.1); Total Protein 7.8 gm/dl (6.0-8.3)
[2022-02-15] MEDS: DOCUSATE SODIUM/SENNA 50/8.6MG TAB PO SCH (09:05)
[2022-02-15] MEDS: METOPROLOL TARTRATE 25 MG TAB PO SCH ×2 (09:05→20:33)
[2022-02-15] MEDS: CEROVITE ADV FORMULA TAB PO SCH (09:05)
[2022-02-15] MEDS: CHECK CLONIDINE PATCH PLACEMENT SCH ×3 (09:05→23:57)
--- NOTE | 2022-02-15 11:48 | Hospitalist Progress Note ---
Date of Service February 15, 2022 Assessment & Plan (1) Cognitive impairment: Plan: - Pt initially admitted for complicated EtOH withdrawal, diagnostically c/w encephalopathy/hypoactive delirium superimposed on dementia based on prior CT imaging with age-related microvascular changes and poor performance on mini-cog testing in 2019 - Currently on Seroquel with favorable response. At this time, patient does not want to be on this and hasn't taken AM or Afternoon doses in 2 days. No behaviors. Will Stop the daily doses. Keep Seroquel on board HS with reduced dosing - Psych has been involved in his care. * Seen by psychiatry earlier in his hospital stay and deemed to not have mental capacity to make medical decisions * Patient with significant improvement in cognition during this hospital stay. I did discuss with psychiatry and patient is able to explain to me how he would meet his daily needs if he lived independently in an apartment (how he would get food, meet his daily hygiene needs). I do feel that he currently has capacity to make medical decisions. Case management is looking into low income housing and applying for additional resources that can help patient meet needs such as food stamps. Additionally, I have discussed this with Shefali who is receptive to this idea. She would help provide additional support. She does have an apartment complex that she manages and would be agreeable to Patient living there but no vacant apartments at this time. - He does have IM Zyprexa ordered to be utilized as directed for agitation/aggressive behavior but has not needed it for weeks (2) Encephalopathy: Plan: RESOLVED and now at what seems to be his baseline mentation - Lyme Western Blot IgG VERY positive. Western blot IgM negative.Doubt Lyme was contributing as he has received adequate treatment for this. - TSH, B12 levels both wnl. - head CT at admission with atrophy/ventriculomegaly but no ICH, CVA, etc. - RPR is nonreactive. - Ammonia levels wnl. - MRI brain 01/03 neg for acute findings (3) Delirium tremens: Plan: RESOLVED. - s/p ICU stay for his DTs - required Precedex drip, IV ativan frequently, etc. - s/p high-dose IV thiamine for numerous days. (4) Positive Lyme disease serology: Plan: - Western blot results -- IgM negative; IgG very positive with nearly all bands positive. - this would suggest early disseminated Lyme disease or later stage Lyme. since IgM was negative we are not dealing with acute/early stage Lyme. - s/p 15 days of IV rocephin -- converted to PO doxy 100mg BID x 14 days - this provided a total of 28 days of abx therapy for ?? chronic Lyme. (5) Hypertension: Plan: - Experienced hypertensive urgency earlier in hospitalization likely d/t agitati on from acute withdrawal - Clonidine patch started upfront for added blood pressure control and to aid with his alcohol withdrawal symptoms. Increased to 0.2 mg and BP now acceptable (129/87) (6) Alcohol dependence: Plan: - Heavy EtOH use prior to admission, subsequently went through acute withdrawal/DTs requiring ICU stay, etc. (7) Hepatitis C: Plan: - Chronic, previously seen by ID in 2019 and was offered treatment, however declined at that time. - Reportedly has received hep A and B vaccines. - Had alcoholic hepatitis earlier this admission but LFTs normalized. - Patient with prior h/o drug abuse and had been incarcerated for illicit drugs in the past. (8) PUD (peptic ulcer disease): Plan: - cont PPI - duodenal bulb ulcer on recent EGD by [facility] (9) Learning disabilities: Plan: see scanned neuropsych testing done in the early Plan: Bonnie Morris, pt's sister -- [phone] -- she resides in [facility] - daughter - [phone] Dispo -medically stable X weeks. Issue is placement at this point. Case management involved. Target process complete. Does not require locked memory support unit and has no skilled needs. Now approved for Medicaid. Finances seem to be an issue. Cognition improved and I believe that he has capacity to make medical decisions and can live independetly with additional support from his daughter. She is agreeable to this plab. Case management working on helping find additional resources for patient Daughter was able to obtain POA. will update labs Admission and Anticipated Discharge Date Admission Date: December 23, 2021 Subjective Patient seen on daily rounds today. Spoke with his daughter and reports that "she said that I can move into the [facility] that owns" Spoke with the daughter who is agreeable to this plan but that there is NO vacant apartments at this time. Currently has a tenant who is looking into moving into personal care but has not yet done so. Patient vocalizes no complaints or concerns. Denies fevers, chills, chest pain, shortness of breath, abdominal pain, nausea or vomiting. Nursing claims that he has not taken his Seroquel for the past 2 days. Additionally, nursing claims he was having some auditory hallucinations overnight and that he was complaining of "someone pulling a wire through the wall". When patient questioned, he believes that someone was on the other side of the wall messing with electrical wires. Review of Systems Review of Systems: All systems reviewed and are unremarkable except as noted in HPI and below Denies fevers, chills, headache, nasal congestion, sore throat, cough, chest pain, shortness of breath, palpitations, orthopnea, PND, abdominal pain, nausea, vomiting, diarrhea, constipation, dysuria, hematuria, frequency, back pain, joint pain or swelling, easy bruising or bleeding, skin lesions or rashes. Physical Exam Physical Exam: General: Resting comfortably in his hospital bed. NAD. HEENT: Head is AT/NC. Buccal mucosa is moist and pink Neck: No JVD. Negative hepatojugular reflex Cardiac: RRR without M/G/R Lungs: CTA without W/R/R Abdomen: Normoactive X4. Soft and nontender in all quadrants. Extremities: No peripheral clubbing cyanosis or edema Neuro: ANO X4. Cranial nerves II through XII are grossly intact. No focal neuro deficits Skin: No obvious skin lesions or rashes Psych: Appropriate affect. Pleasant and cooperative Results & Data Results & Data ([facility]) Vital Signs (Past 12 Hours) Vital Signs Temp Pulse Resp BP Pulse Ox 02/15/22 07:21 36.5 C 65 18 152/95 H 95 PG Care Time/CCT Total # of Minutes Spent Total Time Spent with Patient: Total time spent is greater than 50% in coordination of care (as documented) at patient's floor/unit and/or counseling patient: Coding Level of Care Code 53803 Subseq Hosp Care Lvl 1 Diagnoses Cognitive impairment R41.89 Encephalopathy G93.40 Delirium tremens F10.231 Positive Lyme disease serology R76.8 Hypertension I10 Alcohol dependence F10.251 Complication of substance-induced condition: with hallucinations Substance use status: alcohol-induced psychotic disorder Hepatitis C B19.20 PUD (peptic ulcer disease) K27.9 Learning disabilities F81.9 (1) Alcohol dependence Complication of substance-induced condition: with hallucinations Substance use status: alcohol-induced psychotic disorder Qualified Code(s): 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
[2022-02-15] MEDS: QUEtiapine FUMARATE 25 MG TABLET PO SCH (20:33)
[2022-02-16] MEDS: CEROVITE ADV FORMULA TAB PO SCH (08:23)
[2022-02-16] MEDS: CHECK CLONIDINE PATCH PLACEMENT SCH ×3 (08:23→23:50)
[2022-02-16] MEDS: METOPROLOL TARTRATE 25 MG TAB PO SCH ×2 (08:24→20:07)
[2022-02-16] MEDS: DOCUSATE SODIUM/SENNA 50/8.6MG TAB PO SCH (08:26)
[2022-02-16] MEDS: lisinopril 10 MG TAB PO SCH (09:09)
--- NOTE | 2022-02-16 14:32 | Hospitalist Progress Note ---
Date of Service February 16, 2022 Assessment & Plan (1) Cognitive impairment: Plan: - Pt initially admitted for complicated EtOH withdrawal, diagnostically c/w encephalopathy/hypoactive delirium superimposed on dementia based on prior CT imaging with age-related microvascular changes and poor performance on mini-cog testing in 2019 - Currently on Seroquel with favorable response. At this time, patient does not want to be on this and hasn't taken AM or Afternoon doses in 2 days. No behaviors. Have Stopped the daily doses and reduced HS dose - Psych has been involved in his care. * Seen by psychiatry earlier in his hospital stay and deemed to not have mental capacity to make medical decisions * Patient with significant improvement in cognition during this hospital stay. I did discuss with psychiatry and patient is able to explain to me how he would meet his daily needs if he lived independently in an apartment (how he would get food, meet his daily hygiene needs). I do feel that he currently has capacity to make medical decisions. Case management is looking into low income housing and applying for additional resources that can help patient meet needs such as food stamps. Additionally, I have discussed this with Shefali who is receptive to this idea. She would help provide additional support. She does have an apartment complex that she manages and would be agreeable to Patient living there but no vacant apartments at this time. - He does have IM Zyprexa ordered to be utilized as directed for agitation/aggressive behavior but has not needed it for weeks (2) Encephalopathy: Plan: RESOLVED and now at what seems to be his baseline mentation - Lyme Western Blot IgG VERY positive. Western blot IgM negative.Doubt Lyme was contributing as he has received adequate treatment for this. - TSH, B12 levels both wnl. - head CT at admission with atrophy/ventriculomegaly but no ICH, CVA, etc. - RPR is nonreactive. - Ammonia levels wnl. - MRI brain 01/03 neg for acute findings (3) Delirium tremens: Plan: RESOLVED. - s/p ICU stay for his DTs - required Precedex drip, IV ativan frequently, etc. - s/p high-dose IV thiamine for numerous days. (4) Positive Lyme disease serology: Plan: - Western blot results -- IgM negative; IgG very positive with nearly all bands positive. - this would suggest early disseminated Lyme disease or later stage Lyme. since IgM was negative we are not dealing with acute/early stage Lyme. - s/p 15 days of IV rocephin -- converted to PO doxy 100mg BID x 14 days - this provided a total of 28 days of abx therapy for ?? chronic Lyme. (5) Hypertension: Plan: - Experienced hypertensive urgency earlier in hospitalization likely d/t agitation from acute withdrawal - Clonidine patch started upfront for added blood pressure control and to aid with his alcohol withdrawal symptoms. Increased to 0.2 mg - BP remains variable. Will add lisinopril and continue to monitor (6) Alcohol dependence: Plan: - Heavy EtOH use prior to admission, subsequently went through acute withdrawal/DTs requiring ICU stay, etc. (7) Hepatitis C: Plan: - Chronic, previously seen by ID in 2019 and was offered treatment, however declined at that time. - Reportedly has received hep A and B vaccines. - Had alcoholic hepatitis earlier this admission but LFTs normalized. - Patient with prior h/o drug abuse and had been incarcerated for illicit drugs in the past. (8) PUD (peptic ulcer disease): Plan: - cont PPI - duodenal bulb ulcer on recent EGD by [facility] (9) Learning disabilities: Plan: see scanned neuropsych testing done in the early Plan: Bonnie Morris, pt's sister -- [phone] -- she resides in [place] Shefali Cavazos - daughter - [phone] Dispo -medically stable X weeks. Issue is placement at this point. Case management involved. Target process complete. Does not require locked memory support unit and has no skilled needs. Now approved for Medicaid. Finances seem to be an issue. Cognition improved and I believe that he has capacity to make medical decisions and can live independetly with additional support from his [facility]. She is agreeable to this plab. Case management working on helping find additional resources for patient Daughter was able to obtain POA. will update labs Admission and Anticipated Discharge Date Admission Date: December 23, 2021 Subjective Patient seen on daily rounds today. Vocalizes no complaints or concerns. Denies fevers, chills, chest pain, shortness of breath, abdominal pain, nausea or vomiting. Nursing staff concerned that his blood pressure seems to be elevated over the past 24 hours (more so than it had been). This morning was 180s systolic. After being given his clonidine, remains in the 160s. Has been having intermittent accelerated hypertension throughout this hospital stay requiring dose adjustments in his medications. He denies headache, epistaxis, and does not have increased confusion it is really asymptomatic in this regard. Review of Systems Review of Systems: All systems reviewed and are unremarkable except as noted in HPI and below Denies fevers, chills, headache, nasal congestion, sore throat, cough, chest pain, shortness of breath, palpitations, orthopnea, PND, abdominal pain, nausea, vomiting, diarrhea, constipation, dysuria, hematuria, frequency, back pain, joint pain or swelling, easy bruising or bleeding, skin lesions or rashes. Physical Exam Physical Exam: General: Resting comfortably in his hospital bed. NAD. HEENT: Head is AT/NC. Buccal mucosa is moist and pink Neck: No JVD. Negative hepatojugular reflex Cardiac: RRR without M/G/R Lungs: CTA without W/R/R Abdomen: Normoactive X4. Soft and nontender in all quadrants. Extremities: No peripheral clubbing cyanosis or edema Neuro: ANO X4. Cranial nerves II through XII are grossly intact. No focal neuro deficits Skin: No obvious skin lesions or rashes Psych: Appropriate affect. Pleasant and cooperative Results & Data [facility] Vital Signs (Past 12 Hours) Vital Signs Temp Pulse Resp BP Pulse Ox 02/16/22 08:22 165/94 H 02/16/22 06:32 36.6 C 63 16 186/97 H 96 PG Care Time/CCT Total # of Minutes Spent Total Time Spent with Patient: Total time spent is greater than 50% in coordination of care (as documented) at patient's floor/unit and/or counseling patient: Coding Level of Care Code 12701 Subseq Hosp Care Lvl 2 Diagnoses Cognitive impairment R41.89 Encephalopathy G93.40 Delirium tremens F10.231 Positive Lyme disease serology R76.8 Hypertension I10 Alcohol dependence F10.251 Complication of substance-induced condition: with hallucinations Substance use status: alcohol-induced psychotic disorder Hepatitis C B19.20 PUD (peptic ulcer disease) K27.9 Learning disabilities F81.9 (1) Alcohol dependence Complication of substance-induced condition: with hallucinations Substance use status: alcohol-induced psychotic disorder Qualified Code(s): 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
[2022-02-16] MEDS: QUEtiapine FUMARATE 25 MG TABLET PO SCH (20:59)
[2022-02-17] MEDS: METOPROLOL TARTRATE 25 MG TAB PO SCH ×2 (07:54→20:33)
[2022-02-17] MEDS: lisinopril 10 MG TAB PO SCH (07:54)
[2022-02-17] MEDS: CEROVITE ADV FORMULA TAB PO SCH (07:55)
[2022-02-17] MEDS: DOCUSATE SODIUM/SENNA 50/8.6MG TAB PO SCH (07:57)
[2022-02-17] MEDS: CHECK CLONIDINE PATCH PLACEMENT SCH ×3 (07:57→23:25)
--- NOTE | 2022-02-17 14:46 | Hospitalist Progress Note ---
Date of Service February 17, 2022 Assessment & Plan (1) Cognitive impairment: Plan: - Pt initially admitted for complicated EtOH withdrawal, diagnostically c/w encephalopathy/hypoactive delirium superimposed on dementia based on prior CT imaging with age-related microvascular changes and poor performance on mini-cog testing in 2019 - Currently on Seroquel with favorable response. At this time, patient does not want to be on this and hasn't taken AM or Afternoon doses in 2 days. No behaviors. Have Stopped the daily doses and reduced HS dose - Psych has been involved in his care. * Seen by psychiatry earlier in his hospital stay and deemed to not have mental capacity to make medical decisions * Patient with significant improvement in cognition during this hospital stay. I did discuss with psychiatry and patient is able to explain to me how he would meet his daily needs if he lived independently in an apartment (how he would get food, meet his daily hygiene needs). I do feel that he currently has capacity to make medical decisions. I have spoken to his daughter multiple times over the past several days and initially she was agreeable to provide support (regarding medications, taking him to doctors appointments, and helping with his day-to-day needs). Case management has discussed this and daughter reports to case management that she is not agreeable to these things and would like her father to be discharged to a personal care facility - He does have IM Zyprexa ordered to be utilized as directed for agitation/aggressive behavior but has not needed it for weeks (2) Encephalopathy: Plan: RESOLVED and now at what seems to be his baseline mentation - Lyme Western Blot IgG VERY positive. Western blot IgM negative.Doubt Lyme was contributing as he has received adequate treatment for this. - TSH, B12 levels both wnl. - head CT at admission with atrophy/ventriculomegaly but no ICH, CVA, etc. - RPR is nonreactive. - Ammonia levels wnl. - MRI brain 01/03 neg for acute findings (3) Delirium tremens: Plan: RESOLVED. - s/p ICU stay for his DTs - required Precedex drip, IV ativan frequently, etc. - s/p high-dose IV thiamine for numerous days. (4) Positive Lyme disease serology: Plan: - Western blot results -- IgM negative; IgG very positive with nearly all bands positive. - this would suggest early disseminated Lyme disease or later stage Lyme. since IgM was negative we are not dealing with acute/early stage Lyme. - s/p 15 days of IV rocephin -- converted to PO doxy 100mg BID x 14 days - this provided a total of 28 days of abx therapy for ?? chronic Lyme. (5) Hypertension: Plan: - Experienced hypertensive urgency earlier in hospitalization likely d/t agitation from acute withdrawal - Clonidine patch started upfront for added blood pressure control and to aid with his alcohol withdrawal symptoms. Increased to 0.2 mg - BP remains variable. Lisinopril added. BP significantly improved (136/83) (6) Alcohol dependence: Plan: - Heavy EtOH use prior to admission, subsequently went through acute withdrawal/DTs requiring ICU stay, etc. (7) Hepatitis C: Plan: - Chronic, previously seen by ID in 2019 and was offered treatment, however declined at that time. - Reportedly has received hep A and B vaccines. - Had alcoholic hepatitis earlier this admission but LFTs normalized. - Patient with prior h/o drug abuse and had been incarcerated for illicit drugs in the past. (8) PUD (peptic ulcer disease): Plan: - cont PPI - duodenal bulb ulcer on recent EGD by [facility] (9) Learning disabilities: Plan: see scanned neuropsych testing done in the early Plan: Bonnie Morris, pt's sister -- [phone] -- she resides in [facility] - daughter - [phone] Dispo -medically stable X weeks. Issue is placement at this point. Case management involved. Target process complete. Does not require locked memory support unit and has no skilled needs. Now approved for Medicaid. Finances seem to be an issue. Cognition improved and I believe that he has capacity to make medical decisions and can live independetly with additional support from his daughter. Initially she was agreeable to help provide additional support but now she is not agreeable (per case management). Case management working on helping find additional resources for patient Daughter was able to obtain POA. Admission and Anticipated Discharge Date Admission Date: December 23, 2021 Subjective Patient seen on daily rounds today. Vocalizes no complaints or concerns. Denies fevers, chills, chest pain, shortness of breath, abdominal pain, nausea or vomiting. Blood pressure better with addition of lisinopril Review of Systems Review of Systems: All systems reviewed and are unremarkable except as noted in HPI and below Denies fevers, chills, headache, nasal congestion, sore throat, cough, chest pain, shortness of breath, palpitations, orthopnea, PND, abdominal pain, nausea, vomiting, diarrhea, constipation, dysuria, hematuria, frequency, back pain, joint pain or swelling, easy bruising or bleeding, skin lesions or rashes. Physical Exam Physical Exam: General: Resting comfortably in his hospital bed. NAD. HEENT: Head is AT/NC. Buccal mucosa is moist and pink Neck: No JVD. Negative hepatojugular reflex Cardiac: RRR without M/G/R Lungs: CTA without W/R/R Abdomen: Normoactive X4. Soft and nontender in all quadrants. Extremities: No peripheral clubbing cyanosis or edema Neuro: ANO X4. Cranial nerves II through XII are grossly intact. No focal neuro deficits Skin: No obvious skin lesions or rashes Psych: Appropriate affect. Pleasant and cooperative Results & Data Results & Data ([facility]) Vital Signs (Past 12 Hours) Vital Signs Pulse Resp BP Pulse Ox 02/17/22 09:40 136/83 02/17/22 08:05 68 16 195/104 H 96 PG Care Time/CCT Total # of Minutes Spent Total Time Spent with Patient: Total time spent is greater than 50% in coordination of care (as documented) at patient's floor/unit and/or counseling patient: Coding Level of Care Code 97999 Subseq Hosp Care Lvl 1 Diagnoses Cognitive impairment R41.89 Encephalopathy G93.40 Delirium tremens F10.231 Positive Lyme disease serology R76.8 Hypertension I10 Alcohol dependence F10.251 Complication of substance-induced condition: with hallucinations Substance use status: alcohol-induced psychotic disorder Hepatitis C B19.20 PUD (peptic ulcer disease) K27.9 Learning disabilities F81.9 (1) Alcohol dependence Complication of substance-induced condition: with hallucinations Substance use status: alcohol-induced psychotic disorder Qualified Code(s): 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
[2022-02-17] MEDS ORDERED: IBUPROFEN 600 MG TAB PO PRN (18:50)
[2022-02-17] MEDS: QUEtiapine FUMARATE 25 MG TABLET PO SCH (20:33)
[2022-02-18] MEDS: CHECK CLONIDINE PATCH PLACEMENT SCH ×3 (08:24→23:24)
[2022-02-18] MEDS: lisinopril 10 MG TAB PO SCH (08:24)
[2022-02-18] MEDS: CEROVITE ADV FORMULA TAB PO SCH (08:24)
[2022-02-18] MEDS: METOPROLOL TARTRATE 25 MG TAB PO SCH ×2 (08:25→20:34)
[2022-02-18] MEDS: DOCUSATE SODIUM/SENNA 50/8.6MG TAB PO SCH (08:25)
[2022-02-18] MEDS ORDERED: BENZOCAINE 20% (ORAJEL) 11.9 GM TUBE MT PRN (10:20)
[2022-02-18] MEDS: AMOXICILLIN/CLAVULANATE 875 MG TAB PO SCH ×2 (13:40→20:33)
--- NOTE | 2022-02-18 14:57 | Hospitalist Progress Note ---
Date of Service February 18, 2022 Assessment & Plan (1) Broken tooth: Plan: Patient broke tooth sometime around 02/16. Is causing dental pain Tylenol/ibuprofen ordered for pain Started on Augmentin prophylactically I did reach out to Dr. Wilde and explained the situation. This does not need to be done inpatient; however, we have been struggling to get patient discharged from the hospital. He has happily agreed to see patient while in house (2) Cognitive impairment: Plan: - Pt initially admitted for complicated EtOH withdrawal, diagnostically c/w encephalopathy/hypoactive delirium superimposed on dementia based on prior CT imaging with age-related microvascular changes and poor performance on mini-cog testing in 2019 - Currently on Seroquel with favorable response. At this time, patient does not want to be on this and hasn't taken AM or Afternoon doses in 2 days. No behaviors. Have Stopped the daily doses and reduced HS dose - Psych has been involved in his care. * Seen by psychiatry earlier in his hospital stay and deemed to not have mental capacity to make medical decisions * Patient with significant improvement in cognition during this hospital stay. I did discuss with psychiatry and patient is able to explain to me how he would meet his daily needs if he lived independently in an apartment (how he would get food, meet his daily hygiene needs). I do feel that he currently has capacity to make medical decisions. I have spoken to his daughter mu ltiple times over the past several days and initially she was agreeable to provide support (regarding medications, taking him to doctors appointments, and helping with his day-to-day needs); however, she is no longer agreeable to help in this matter. Case management has referrals out to multiple personal care facilities and boarding homes. Finances remain the issue. Case management did explain to the daughter that she may need to provide additional financial support if she is unable/unwilling to help him in an independent setting - He does have IM Zyprexa ordered to be utilized as directed for agitation/aggressive behavior but has not needed it for weeks (3) Encephalopathy: Plan: RESOLVED and now at what seems to be his baseline mentation - Lyme Western Blot IgG VERY positive. Western blot IgM negative.Doubt Lyme was contributing as he has received adequate treatment for this. - TSH, B12 levels both wnl. - head CT at admission with atrophy/ventriculomegaly but no ICH, CVA, etc. - RPR is nonreactive. - Ammonia levels wnl. - MRI brain 01/03 neg for acute findings (4) Delirium tremens: Plan: RESOLVED. - s/p ICU stay for his DTs - required Precedex drip, IV ativan frequently, etc. - s/p high-dose IV thiamine for numerous days. (5) Positive Lyme disease serology: Plan: - Western blot results -- IgM negative; IgG very positive with nearly all bands positive. - this would suggest early disseminated Lyme disease or later stage Lyme. since IgM was negative we are not dealing with acute/early stage Lyme. - s/p 15 days of IV rocephin -- converted to PO doxy 100mg BID x 14 days - this provided a total of 28 days of abx therapy for ?? chronic Lyme. (6) Hypertension: Plan: - Experienced hypertensive urgency earlier in hospitalization likely d/t agitation from acute withdrawal - Clonidine patch started upfront for added blood pressure control and to aid with his alcohol withdrawal symptoms. Increased to 0.2 mg - BP remains variable. Lisinopril added. BP significantly improved (136/83) (7) Alcohol dependence: Plan: - Heavy EtOH use prior to admission, subsequently went through acute withdrawal/DTs requiring ICU stay, etc. (8) Hepatitis C: Plan: - Chronic, previously seen by ID in 2019 and was offered treatment, however declined at that time. - Reportedly has received hep A and B vaccines. - Had alcoholic hepatitis earlier this admission but LFTs normalized. - Patient with prior h/o drug abuse and had been incarcerated for illicit drugs in the past. (9) PUD (peptic ulcer disease): Plan: - cont PPI - duodenal bulb ulcer on recent EGD by [facility] (10) Learning disabilities: Plan: see scanned neuropsych testing done in the early Plan: Bonnie Alexandra, pt's sister -- [phone] -- she resides in [place] Shefali [place] - daughter - [phone] Dispo -medically stable X weeks. Issue is placement at this point. Case management involved. Target process complete. Does not require locked memory support unit and has no skilled needs. Now approved for Medicaid. Finances seem to be an issue. Cognition improved and I believe that he has capacity to make medical decisions and can live independetly with additional support from his daughter. Initially she was agreeable to help provide additional support but now she is not agreeable (per case management). Case management working on helping find additional resources for patient Daughter was able to obtain POA. Admission and Anticipated Discharge Date Admission Date: December 23, 2021 Subjective Patient seen on daily rounds today. Reports dental pain. Claims was eating 2 days ago and is back molar "broke". Several pieces fell out of his mouth but the chipped tooth remains and is painful. No fevers or chills. Review of Systems Review of Systems: All systems reviewed and are unremarkable except as noted in HPI and below Denies fevers, chills, headache, nasal congestion, sore throat, cough, chest pain, shortness of breath, palpitations, orthopnea, PND, abdominal pain, nausea, vomiting, diarrhea, constipation, dysuria, hematuria, frequency, back pain, join t pain or swelling, easy bruising or bleeding, skin lesions or rashes. Physical Exam Physical Exam: General: Resting comfortably in his hospital bed. NAD. HEENT: Head is AT/NC. Buccal mucosa is moist and pink Neck: No JVD. Negative hepatojugular reflex Cardiac: RRR without M/G/R Lungs: CTA without W/R/R Abdomen: Normoactive X4. Soft and nontender in all quadrants. Extremities: No peripheral clubbing cyanosis or edema Neuro: ANO X4. Cranial nerves II through XII are grossly intact. No focal neuro deficits Skin: No obvious skin lesions or rashes Psych: Appropriate affect. Pleasant and cooperative Results & Data Results & Data ([facility]) Vital Signs (Past 12 Hours) Vital Signs Temp Pulse Resp BP Pulse Ox 02/18/22 08:12 36.6 C 62 16 157/91 H 94 PG Care Time/CCT Total # of Minutes Spent Total Time Spent with Patient: Total time spent is greater than 50% in coordination of care (as documented) at patient's floor/unit and/or counseling patient: Coding Level of Care Code 20394 Subseq Hosp Care Lvl 2 Diagnoses Cognitive impairment R41.89 Encephalopathy G93.40 Delirium tremens F10.231 Positive Lyme disease serology R76.8 Hypertension I10 Alcohol dependence F10.251 Complication of substance-induced condition: with hallucinations Substance use status: alcohol-induced psychotic disorder Hepatitis C B19.20 PUD (peptic ulcer disease) K27.9 Learning disabilities F81.9 Broken tooth S02.5XXA (1) Alcohol dependence Complication of substance-induced condition: with hallucinations Substance use status: alcohol-induced psychotic disorder Qualified Code(s): 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
[2022-02-18] MEDS: QUEtiapine FUMARATE 25 MG TABLET PO SCH (20:33)
[2022-02-19] MEDS: CHECK CLONIDINE PATCH PLACEMENT SCH ×3 (07:32→23:55)
[2022-02-19] MEDS: DOCUSATE SODIUM/SENNA 50/8.6MG TAB PO SCH (07:33)
[2022-02-19] MEDS: METOPROLOL TARTRATE 25 MG TAB PO SCH ×2 (07:33→20:28)
[2022-02-19] MEDS: CEROVITE ADV FORMULA TAB PO SCH (07:34)
[2022-02-19] MEDS: lisinopril 10 MG TAB PO SCH (07:35)
[2022-02-19] MEDS: AMOXICILLIN/CLAVULANATE 875 MG TAB PO SCH ×2 (07:35→16:23)
--- NOTE | 2022-02-19 08:35 | Oral/Maxillofacial Consult ---
Date of Consultation February 19, 2022 Assessment & Plan (1) Broken tooth: (2) Impacted third molar tooth: (3) Chronic dental pain: History of Present Illness Attending Physician: Mario Carter MD History of Present Illness The CT confirms that There is a grossly fractured infected impacted lower right wisdom tooth. I will plan extraction of # 32 with anesthesia in OR before he will be transferred out of [facility]. Please advice if Arvind is cleared for general anesthesia and surgery Is he able to sign the consent himself? Is he cleared for surgery and anesthesia ? Oral Maxillofacial Surgery Exam Present Complaint: I have pain/swelling/drainage from my infected wisdom tooth lower right # 32 Symptoms have been ongoing for a while. Tooth recently fractured with exposed nerve and very sharp fracture fragments tissue very irritated Oral Exam: Finding--P-cor associated with the impacted teeth, tender gingival tissue with deep pocket formation. # 32 is partial impacted and removal is clinical indicated. Imaging: I reviewed the CT scan and noted a grossly fracture partial impacted lower right # 32 wisdom tooth. There is no infection or bony pathology noted. The pain is due to the exposure of the nerve of the tooth. The roots are close to but no involving the nerve. Removal is clinically needed. Soft tissue: floor of the mouth, tongue, hard/soft palate, posterior pharyngeal area all with in normal limits, no pathology or abnormal findings noted. No lesions noted that require follow up or Bx. Swelling and irritated tissue lower right side Oral Care: Overall oral care is good Occlusion: Class I with missing teeth TMJ exam: No pop, clicking, pain, good ROM, No history of TMJ injury or dysfunction Periodontal exam: Mild gingival tissue inflammation with early evidence of periodontal pathology. Head/Neck exam: Neck is supple, FROM, Able to extend and flex neck w/o difficulty, no masses, no abnormalities, no airway issues, no evidence of sleep apnea. Treatment Plan: I obtained a CT scan to determine to relationship of the tooth to the underlying nerve and adjacent teeth given that the patient is 66 y/o. I reviewed the CT scan which showed a decayed # 32 which is partial impacted. Set up with general anesthesia in hospital due to complexity of the procedure before he is discharged. I have him set in OR on WednesdayFebruary 23 at noon. I reviewed the treatment plan and consent with the patient I discussed with his daughter Shefali [phone] the need to remove # 32 and obtaining routine dental care in the future. Understanding was expressed. Time was given for questions regarding the surgery, risks and post op care. Discussed alternative to treatment--procedure as planned, Do not do surgery The wisdom # 32 is partially impacted and in an abnormal position, removal is indicated and medically necessary. Risks discussed: Bleeding,Pain,swelling,infection, dry socket, delayed healing, nerve injury to face,lips,tongue,chin area which could be permanent (rare). TMJ, jaw stiffness, change in bite (rare), ear pain (referred). Sinus problems like fistula or infection. Need to leave a small root fragment in place to avoid injury to nerve or sinus. Relationship of wisdom teeth to nerve/sinus and risk of jaw fracture. Home care reviewed: tooth brushing, rinsing, follow up care with Dr Wilde. diet=gypok-tehr-wics dental. Discussed activity level, while on Rx pain Meds. Surgery to be set up once WednesdayFebruary 23 at noon The plan is for the surgery to be completed before discharge from [facility]. Allergies Allergy/AdvReac Type Severity Reaction Status Date / Time bee venom protein (honey bee) AdvReac Severe Anaphylaxis Unverified 12/23/21 15:51 Home Medications Medication Instructions Recorded Confirmed Type No Known Home Medications 12/23/21 12/23/21 History Patient History Medical History Alcohol dependence (06/08/11) Alcohol use disorder Bee sting allergy Cognitive impairment Cognitive impairment Depression (06/08/11) Hepatitis C Hypertension Marijuana use Surgical History Status post hernia repair Status post knee surgery Family History Father Diabetes Hypertension Mother Breast cancer Denies family history of Ovarian cancer Prostate cancer Myocardial infarction Colorectal cancer Social History Smoking Status: Current some day smoker Hx Alcohol Use: Yes Alcohol type: beer and hard liquor Hx Substance Use: Yes Preferred Language: Togolese Communication Ability: Unable Visual Impairment: No Limitations Hearing Ability: Normal marital status: Single Current Living Situation: Alone current occupational status: retired Feels Safe at Home: No Childhood Exposure to Second-Hand Smoke: No Dental Care, Regularly: Yes Physical Activity Frequency: Does not Exercise Seatbelt Use: always Assistive Devices: None Results & Data ([facility]) Vital Signs (Past 12 Hours) Vital Signs Temp Pulse Pulse Resp BP Pulse Ox 02/19/22 07:31 36.5 C 65 18 171/71 H 98 02/18/22 20:34 60 180/122 H PG Care Time/CCT Total # of Minutes Spent Total Time Spent with Patient: Total time spent is greater than 50% in coordination of care (as documented) at patient's floor/unit and/or counseling patient: Coding Level of Care Code 87271 Initial Inpt Care Lvl 2 Diagnoses Broken tooth S02.5XXA Impacted third molar tooth K01.1 Chronic dental pain K08.9; G89.29
--- NOTE | 2022-02-19 10:25 | CT Scan Report ---
CT facial bones wo con CLINICAL HISTORY: fractured lower rt wisdom tooth that is infected COMPARISON STUDY: No previous studies for comparison. CT DOSE: 915.78 mGy.cm TECHNIQUE: Standard CT of the Facial Bones and Orbits was performed without IV contrast. A dose lowe ring technique was utilized adhering to the principles of ALARA. FINDINGS: Bones: There are no displaced fractures identified. The orbital rims are intact bilaterally. The zygo matic arches are intact bilaterally. Nasal bones are intact. The nasal septum is in the midline. The mandible and maxilla are intact. There is a fracture of the posterior right molar with lucency seen within the tooth. However, no bone destruction is identified. No soft tissue abscess can be identified. Paranasal sinuses: There is mild mucosal thickening present involving the right maxillary antrum. No fluid level is seen. The remaining adjacent paranasal sinuses are clear. Soft tissues: There is no focal soft tissue swelling. IMPRESSION: 1. Fracture of the posterior right molar with no evidence for osseous pathology. There is lucency see n within the tooth itself. No soft tissue abscess is identified. 2. Mild chronic right maxillary sinusitis. ACT 112: Negative or not required by law. Electronically signed by: Ty Toure M.D. 02/19/2022 10:23 AM
--- NOTE | 2022-02-19 10:58 | Hospitalist Progress Note ---
Date of Service February 19, 2022 Assessment & Plan (1) Broken tooth: Plan: Patient broke tooth sometime around 02/16. Is causing dental pain Tylenol/ibuprofen ordered for pain Started on Augmentin prophylactically Dr. Wilde consulted. This does not need to be done inpatient; however, we have been struggling to get patient discharged from the hospital. He has happily agreed to see patient while in house CT obtained, as above, no evidence of abscess formation Continue abx, anticipate Dr. Wilde will extract prior to d/c Pt is medically cleared to undergo anesthesia for the extraction procedure should he need it, would simply make NPO after MN evening prior to procedure As he does have capacity at this time, he can provide his own consent to proceed (2) Cognitive impairment: Plan: - Pt initially admitted for complicated EtOH withdrawal, diagnostically c/w encephalopathy/hypoactive delirium superimposed on dementia based on prior CT imaging with age-related microvascular changes and poor performance on mini-cog testing in 2019 - Currently on Seroquel with favorable response. At this time, patient does not want to be on this and hasn't taken AM or Afternoon doses in 2 days. No behaviors. Have Stopped the daily doses and reduced HS dose - Psych has been involved in his care. * Seen by psychiatry earlier in his hospital stay and deemed to not have mental capacity to make medical decisions * Patient with significant improvement in cognition during this hospital stay. I did discuss with psychiatry and patient is able to explain to me how he would meet his daily needs if he lived independently in an apartment (how he would get food, meet his daily hygiene needs). I do feel that he currently has capacity to make medical decisions. I have spoken to his daughter multiple times over the past several days and initially she was agreeable to provide support (regarding medications, taking him to doctors appointments, and helping with his day-to-day needs); however, she is no longer agreeable to help in this matter. Case management has referrals out to multiple personal care facilities and boarding homes. Finances remain the issue. Case management did explain to the daughter that she may need to provide additional financial support if she is unable/unwilling to help him in an independent setting - He does have IM Zyprexa ordered to be utilized as directed for agitation/aggressive behavior but has not needed it for weeks (3) Encephalopathy: Plan: RESOLVED and now at what seems to be his baseline mentation - Lyme Western Blot IgG VERY positive. Western blot IgM negative.Doubt Lyme was contributing as he has received adequate treatment for this. - TSH, B12 levels both wnl. - head CT at admission with atrophy/ventriculomegaly but no ICH, CVA, etc. - RPR is nonreactive. - Ammonia levels wnl. - MRI brain 01/03 neg for acute findings (4) Delirium tremens: Plan: RESOLVED. - s/p ICU stay for his DTs - required Precedex drip, IV ativan frequently, etc. - s/p high-dose IV thiamine for numerous days. (5) Positive Lyme disease serology: Plan: - Western blot results -- IgM negative; IgG very positive with nearly all bands positive. - this would suggest early disseminated Lyme disease or later stage Lyme. since IgM was negative we are not dealing with acute/early stage Lyme. - s/p 15 days of IV rocephin -- converted to PO doxy 100mg BID x 14 days - this provided a total of 28 days of abx therapy for ?? chronic Lyme. (6) Hypertension: Plan: - Experienced hypertensive urgency earlier in hospitalization likely d/t agita tion from acute withdrawal - Clonidine patch started upfront for added blood pressure control and to aid with his alcohol withdrawal symptoms. Increased to 0.2 mg - BP remains variable. Lisinopril added. BP significantly improved (136/83) (7) Alcohol dependence: Plan: - Heavy EtOH use prior to admission, subsequently went through acute withdrawal/DTs requiring ICU stay, etc. (8) Hepatitis C: Plan: - Chronic, previously seen by ID in 2019 and was offered treatment, however declined at that time. - Reportedly has received hep A and B vaccines. - Had alcoholic hepatitis earlier this admission but LFTs normalized. - Patient with prior h/o drug abuse and had been incarcerated for illicit drugs in the past. (9) PUD (peptic ulcer disease): Plan: - cont PPI - duodenal bulb ulcer on recent EGD by [facility] (10) Learning disabilities: Plan: see scanned neuropsych testing done in the early Plan: Bonnietabitha Morris, pt's sister -- [phone] -- she resides in [place] Shefali Cavazos - daughter - [phone] Dispo -medically stable X weeks. Issue is placement at this point. Case management involved. [employer] process complete. Does not require locked memory support unit and has no skilled needs. Now approved for Medicaid. Finances seem to be an issue. Cognition improved and I believe that he has capacity to make medical decisions and can live independently with additional support from his daughter. Initially she was agreeable to help provide additional support but now she is not agreeable (per case management). Case management working on helping find additional resources for patient. Daughter was able to obtain POA. Admission and Anticipated Discharge Date Admission Date: December 23, 2021 Subjective Patient seen on daily rounds today. Was seen this AM by Dr. Wilde for dental pain due to broken tooth and sent for CT. Denies swelling. No fever/chills. RN notified overnight systolic BP up to 180 and this AM was 176 prior to med administration. He has no other complaints/concerns/questions at present. Review of Systems Review of Systems: All systems reviewed and are unremarkable except as noted in HPI and below Denies fevers, chills, headache, nasal congestion, sore throat, cough, chest pain, shortness of breath, palpitations, orthopnea, PND, abdominal pain, nausea, vomiting, diarrhea, constipation, dysuria, hematuria, frequency, back pain, joint pain or swelling, easy bruising or bleeding, skin lesions or rashes. Physical Exam Physical Exam: GENERAL: 66 yo wd/wn WM. Awake, alert, orientedx3. NAD. MOUTH: broken right mandible molar, necrotic appearing, no visualized abscess or significant gum swelling LUNGS: Clear to auscultation bilaterally. No W/R/R. CARDIOVASCULAR: Regular rate and rhythm. No M/G/R. ABDOMEN: Soft, non-tender and non-distended. BS normal x 4 quad. EXTREMITIES: No edema. Non-tender. Peripheral pulses +2/4. PSYCHIATRIC: Pleasant, cooperative. SKIN: Warm, dry, intact. No rashes or lesions. Results & Data Results & Data ([facility]) Vital Signs (Past 12 Hours) Vital Signs Temp Pulse Resp BP BP Pulse Ox 02/19/22 10:25 158/91 H 02/19/22 07:31 36.5 C 65 18 171/71 H [address] 02/19/22 08:35 CT facial bones wo con CLINICAL HISTORY: fractured lower rt wisdom tooth that is infected COMPARISON STUDY: No previous studies for comparison. CT DOSE: 915.78 mGy.cm TECHNIQUE: Standard CT of the Facial Bones and Orbits was performed without IV contrast. A dose lowering technique was utilized adhering to the principles of ALARA. FINDINGS: Bones: There are no displaced fractures identified. The orbital rims are intact bilaterally. The zygomatic arches are intact bilaterally. Nasal bones are intact. The nasal septum is in the midline. The mandible and maxilla are intact. There is a fracture of the posterior right molar with lucency seen within the tooth. However, no bone destruction is identified. No soft tissue abscess can be identified. Paranasal sinuses: There is mild mucosal thickening present involving the right maxillary antrum. No fluid level is seen. The remaining adjacent paranasal sinuses are clear. Soft tissues: There is no focal soft tissue swelling. IMPRESSION: 1. Fracture of the posterior right molar with no evidence for osseous pathology. There is lucency seen within the tooth itself. No soft tissue abscess is identified. 2. Mild chronic right maxillary sinusitis. ACT 112: Negative or not required by law. Electronically signed by: Ty Toure M.D. 02/19/2022 10:23 AM PG Care Time/CCT Total # of Minutes Spent Total Time Spent with Patient: Total time spent is greater than 50% in coordination of care (as documented) at patient's floor/unit and/or counseling patient: Coding Level of Care Code 53961 Subseq Hosp Care Lvl 2 Diagnoses Broken tooth S02.5XXA Cognitive impairment R41.89 Encephalopathy G93.40 Delirium tremens F10.231 Positive Lyme disease serology R76.8 Hypertension I10 Alcohol dependence F10.251 Complication of substance-induced condition: with hallucinations Substance use status: alcohol-induced psychotic disorder Hepatitis C B19.20 PUD (peptic ulcer disease) K27.9 Learning disabilities F81.9 (1) Alcohol dependence Complication of substance-induced condition: with hallucinations Substance use status: alcohol-induced psychotic disorder Qualified Code(s): 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
--- NOTE | 2022-02-19 19:41 | Oral/Maxillofacial Progress Nt ---
Date of Service February 19, 2022 Assessment & Plan Admission and Anticipated Discharge Date Admission Date: December 23, 2021 Subjective Surgery to be set up once WednesdayFebruary 23 at noon Please make him NPO WednesdayFebruary 22 at Midnight Consent signed, OR informed, Sam called to give her update. The plan is for the surgery to be completed before discharge from [facility]. Results & Data ([facility]) Vital Signs (Past 12 Hours) Vital Signs Temp Pulse Resp BP BP Pulse Ox 02/19/22 16:30 36.9 C 69 20 163/86 H 97 02/19/22 10:25 158/91 H PG Care Time/CCT Total # of Minutes Spent Total Time Spent with Patient: Total time spent is greater than 50% in coordination of care (as documented) at patient's floor/unit and/or counseling patient: Coding Level of Care Code None
[2022-02-19] MEDS: QUEtiapine FUMARATE 25 MG TABLET PO SCH (20:27)
[2022-02-19] MEDS: POLYETHYLENE (MIRALAX) 17 GM PACK PO PRN (20:31)
[2022-02-20] MEDS: METOPROLOL TARTRATE 25 MG TAB PO SCH ×2 (07:46→20:02)
[2022-02-20] MEDS: AMOXICILLIN/CLAVULANATE 875 MG TAB PO SCH ×2 (07:46→16:50)
[2022-02-20] MEDS: CHECK CLONIDINE PATCH PLACEMENT SCH ×3 (07:46→20:14)
[2022-02-20] MEDS: DOCUSATE SODIUM/SENNA 50/8.6MG TAB PO SCH (07:47)
[2022-02-20] MEDS: lisinopril 10 MG TAB PO SCH (07:48)
[2022-02-20] MEDS: CEROVITE ADV FORMULA TAB PO SCH (07:48)
--- NOTE | 2022-02-20 14:02 | Hospitalist Progress Note ---
Date of Service February 20, 2022 Assessment & Plan (1) Broken tooth: Plan: Patient broke tooth sometime around 02/16. Is causing dental pain Tylenol/ibuprofen ordered for pain Started on Augmentin prophylactically Dr. Wilde consulted. This does not need to be done inpatient; however, we have been struggling to get patient discharged from the hospital. He has happily agreed to see patient while in house CT obtained, as above, no evidence of abscess formation Continue abx, anticipate Dr. Wilde will extract prior to d/c Pt is medically cleared to undergo anesthesia for the extraction procedure should he need it, would simply make NPO after MN evening prior to procedure As he does have capacity at this time, he can provide his own consent to proceed (2) Cognitive impairment: Plan: - Pt initially admitted for complicated EtOH withdrawal, diagnostically c/w encephalopathy/hypoactive delirium superimposed on dementia based on prior CT imaging with age-related microvascular changes and poor performance on mini-cog testing in 2019 - Currently on Seroquel with favorable response. At this time, patient does not want to be on this and hasn't taken AM or Afternoon doses in 2 days. No behaviors. Have Stopped the daily doses and reduced HS dose - Psych has been involved in his care. * Seen by psychiatry earlier in his hospital stay and deemed to not have mental capacity to make medical decisions * Patient with significant improvement in cognition during this hospital stay. I did discuss with psychiatry and patient is able to explain to me how he would meet his daily needs if he lived independently in an apartment (how he would get food, meet his daily hygiene needs). I do feel that he currently has capacity to make medical decisions. I have spoken to his daughter multiple times over the past several days and initially she was agreeable to provide support (regarding medications, taking him to doctors appointments, and helping with his day-to-day needs); however, she is no longer agreeable to help in this matter. Case management has referrals out to multiple personal care facilities and boarding homes. Finances remain the issue. Case management did explain to the daughter that she may need to provide additional financial support if she is unable/unwilling to help him in an independent setting - He does have IM Zyprexa ordered to be utilized as directed for agitation/aggressive behavior but has not needed it for weeks (3) Encephalopathy: Plan: RESOLVED and now at what seems to be his baseline mentation - Lyme Western Blot IgG VERY positive. Western blot IgM negative.Doubt Lyme was contributing as he has received adequate treatment for this. - TSH, B12 levels both wnl. - head CT at admission with atrophy/ventriculomegaly but no ICH, CVA, etc. - RPR is nonreactive. - Ammonia levels wnl. - MRI brain 01/03 neg for acute findings (4) Delirium tremens: Plan: RESOLVED. - s/p ICU stay for his DTs - required Precedex drip, IV ativan frequently, etc. - s/p high-dose IV thiamine for numerous days. (5) Positive Lyme disease serology: Plan: - Western blot results -- IgM negative; IgG very positive with nearly all bands positive. - this would suggest early disseminated Lyme disease or later stage Lyme. since IgM was negative we are not dealing with acute/early stage Lyme. - s/p 15 days of IV rocephin -- converted to PO doxy 100mg BID x 14 days - this provided a total of 28 days of abx therapy for ?? chronic Lyme. (6) Hypertension: Plan: - Experienced hypertensive urgency earlier in hospitalization likely d/t agit ation from acute withdrawal - Clonidine patch started upfront for added blood pressure control and to aid with his alcohol withdrawal symptoms. Increased to 0.2 mg - BP remains variable. Lisinopril added. BP significantly improved with this (7) Alcohol dependence: Plan: - Heavy EtOH use prior to admission, subsequently went through acute withdrawal/DTs requiring ICU stay, etc. (8) Hepatitis C: Plan: - Chronic, previously seen by ID in 2019 and was offered treatment, however declined at that time. - Reportedly has received hep A and B vaccines. - Had alcoholic hepatitis earlier this admission but LFTs normalized. - Patient with prior h/o drug abuse and had been incarcerated for illicit drugs in the past. (9) PUD (peptic ulcer disease): Plan: - cont PPI - duodenal bulb ulcer on recent EGD by [facility] (10) Learning disabilities: Plan: see scanned neuropsych testing done in the early Plan: Bonnie Morris, pt's sister -- [phone] -- she resides in [place] Shefali Cavazos - daughter - [phone] Dispo -medically stable X weeks. Issue is placement at this point. Case management involved. Target process complete. Does not require locked memory support unit and has no skilled needs. Now approved for Medicaid. Finances seem to be an issue. Cognition improved and I believe that he has capacity to make medical decisions and can live independently with additional support from his daughter. Initially she was agreeable to help provide additional support but now she is not agreeable (per case management). Case management working on helping find additional resources for patient. Daughter was able to obtain POA. Admission and Anticipated Discharge Date Admission Date: December 23, 2021 Subjective Patient seen on daily rounds this morning. Conversing with liaison during my visit. He has no new complaints/concerns at this time. Continues to have issues with his tooth but notes that Dr. Wilde is going to extract on Wednesday d/t his discharge issues. Review of Systems Review of Systems: All systems reviewed and are unremarkable except as noted in HPI and below Denies fevers, chills, headache, nasal congestion, sore throat, cough, chest bryanna n, shortness of breath, palpitations, orthopnea, PND, abdominal pain, nausea, vomiting, diarrhea, constipation, dysuria, hematuria, frequency, back pain, joint pain or swelling, easy bruising or bleeding, skin lesions or rashes. Physical Exam Physical Exam: GENERAL: 66 yo wd/wn WM. Awake, alert, orientedx3. NAD. MOUTH: broken right mandible molar, necrotic appearing, no visualized abscess or significant gum swelling LUNGS: Clear to auscultation bilaterally. No W/R/R. CARDIOVASCULAR: Regular rate and rhythm. No M/G/R. ABDOMEN: Soft, non-tender and non-distended. BS normal x 4 quad. EXTREMITIES: No edema. Non-tender. Peripheral pulses +2/4. PSYCHIATRIC: Pleasant, cooperative. SKIN: Warm, dry, intact. No rashes or lesions. Results & Data Results & Data ([facility]) Vital Signs (Past 12 Hours) Vital Signs Temp Pulse Resp BP Pulse Ox 02/20/22 07:55 159/86 H 02/20/22 07:26 36.8 C 69 16 176/104 H 97 PG Care Time/CCT Total # of Minutes Spent Total Time Spent with Patient: Total time spent is greater than 50% in coordination of care (as documented) at patient's floor/unit and/or counseling patient: Coding Level of Care Code 16895 Subseq Hosp Care Lvl 1 Diagnoses Broken tooth S02.5XXA Cognitive impairment R41.89 Encephalopathy G93.40 Delirium tremens F10.231 Positive Lyme disease serology R76.8 Hypertension I10 Alcohol dependence F10.251 Complication of substance-induced condition: with hallucinations Substance use status: alcohol-induced psychotic disorder Hepatitis C B19.20 PUD (peptic ulcer disease) K27.9 Learning disabilities F81.9 (1) Alcohol dependence Complication of substance-induced condition: with hallucinations Substance use status: alcohol-induced psychotic disorder Qualified Code(s): 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
--- NOTE | 2022-02-20 18:44 | Electrocardiogram Report ---
Test Reason : Blood Pressure : / mmHG Vent. Rate : 052 BPM Atrial Rate : 052 BPM P-R Int : 176 ms QRS Dur : 100 ms QT Int : 498 ms P-R-T Axes : 052 069 035 degrees QTc Int : 463 ms Sinus bradycardia Otherwise normal ECG When compared with ECG of 23-DEC-2021 13:20, Vent. rate has decreased BY 39 BPM Confirmed by Kalyan Cline ([id number]) on 02/20/2022 6:43:51 PM Referred By: REFERRED SELF Confirmed By:Kalyan Cline
[2022-02-20] MEDS: QUEtiapine FUMARATE 25 MG TABLET PO SCH ×2 (20:02→20:09)
[2022-02-21] MEDS: METOPROLOL TARTRATE 25 MG TAB PO SCH ×2 (07:55→20:03)
[2022-02-21] MEDS: CEROVITE ADV FORMULA TAB PO SCH (07:55)
[2022-02-21] MEDS: DOCUSATE SODIUM/SENNA 50/8.6MG TAB PO SCH (07:55)
[2022-02-21] MEDS: lisinopril 10 MG TAB PO SCH (07:55)
[2022-02-21] MEDS: AMOXICILLIN/CLAVULANATE 875 MG TAB PO SCH ×2 (07:55→16:35)
[2022-02-21] MEDS: CHECK CLONIDINE PATCH PLACEMENT SCH ×3 (07:56→20:05)
--- NOTE | 2022-02-21 11:33 | Hospitalist Progress Note ---
Date of Service February 21, 2022 Assessment & Plan (1) Broken tooth: Plan: Patient broke tooth sometime around 02/16. Is causing dental pain Tylenol/ibuprofen ordered for pain Started on Augmentin prophylactically Dr. Wilde consulted. This does not need to be done inpatient; however, we have been struggling to get patient discharged from the hospital. He has happily agreed to see patient while in house CT obtained, as above, no evidence of abscess formation Continue abx, anticipate Dr. Wilde will extract prior to d/c Pt is medically cleared to undergo anesthesia for the extraction procedure should he need it, will make NPO after MN evening prior to procedure As he does have capacity at this time, he can provide his own consent to proceed (2) Cognitive impairment: Plan: - Pt initially admitted for complicated EtOH withdrawal, diagnostically c/w encephalopathy/hypoactive delirium superimposed on dementia based on prior CT imaging with age-related microvascular changes and poor performance on mini-cog testing in 2019 - Currently on Seroquel with favorable response. At this time, patient does not want to be on this and hasn't taken AM or Afternoon doses in 2 days. No behav iors. Have Stopped the daily doses and reduced HS dose - Psych has been involved in his care. * Seen by psychiatry earlier in his hospital stay and deemed to not have mental capacity to make medical decisions * Patient with significant improvement in cognition during this hospital stay. I did discuss with psychiatry and patient is able to explain to me how he would meet his daily needs if he lived independently in an apartment (how he would get food, meet his daily hygiene needs). I do feel that he currently has capacity to make medical decisions. I have spoken to his daughter multiple times over the past several days and initially she was agreeable to provide support (regarding medications, taking him to doctors appointments, and helping with his day-to-day needs); however, she is no longer agreeable to help in this matter. Case management has referrals out to multiple personal care facilities and boarding homes. Finances remain the issue. Case management did explain to the daughter that she may need to provide additional financial support if she is unable/unwilling to help him in an independent setting - He does have IM Zyprexa ordered to be utilized as directed for agitation/aggressive behavior but has not needed it for weeks (3) Encephalopathy: Plan: RESOLVED and now at what seems to be his baseline mentation - Lyme Western Blot IgG VERY positive. Western blot IgM negative.Doubt Lyme was contributing as he has received adequate treatment for this. - TSH, B12 levels both wnl. - head CT at admission with atrophy/ventriculomegaly but no ICH, CVA, etc. - RPR is nonreactive. - Ammonia levels wnl. - MRI brain 01/03 neg for acute findings (4) Delirium tremens: Plan: RESOLVED. - s/p ICU stay for his DTs - required Precedex drip, IV ativan frequently, etc. - s/p high-dose IV thiamine for numerous days. (5) Positive Lyme disease serology: Plan: - Western blot results -- IgM negative; IgG very positive with nearly all bands positive. - this would suggest early disseminated Lyme disease or later stage Lyme. since IgM was negative we are not dealing with acute/early stage Lyme. - s/p 15 days of IV rocephin -- converted to PO doxy 100mg BID x 14 days - this provided a total of 28 days of abx therapy for ?? chronic Lyme. (6) Hypertension: Plan: - Experienced hypertensive urgency earlier in hospitalization likely d/t agitation from acute withdrawal - Clonidine patch started upfront for added blood pressure control and to aid with his alcohol withdrawal symptoms. Increased to 0.2 mg - BP remains variable. Lisinopril added. BP significantly improved with this (7) Alcohol dependence: Plan: - Heavy EtOH use prior to admission, subsequently went through acute withdrawal/DTs requiring ICU stay, etc. (8) Hepatitis C: Plan: - Chronic, previously seen by ID in 2019 and was offered treatment, however declined at that time. - Reportedly has received hep A and B vaccines. - Had alcoholic hepatitis earlier this admission but LFTs normalized. - Patient with prior h/o drug abuse and had been incarcerated for illicit drugs in the past. (9) PUD (peptic ulcer disease): Plan: - cont PPI - duodenal bulb ulcer on recent EGD by [facility] (10) Learning disabilities: Plan: see scanned neuropsych testing done in the early Plan: Bonnie Morris, pt's sister -- [phone] -- she resides in [place] Shefali Cavazos - daughter - [phone] Dispo -medically stable X weeks. Issue is placement at this point. Case management involved. Target process complete. Does not require locked memory support unit and has no skilled needs. Now approved for Medicaid. Finances seem to be an issue. Cognition improved and I believe that he has capacity to make medical decisions and can live independently with additional support from his daughter. Initially she was agreeable to help provide additional support but now she is not agreeable (per case management). Case management working on helping find additional resources for patient. Daughter was able to obtain POA. Admission and Anticipated Discharge Date Admission Date: December 23, 2021 Subjective Patient seen on daily rounds this morning. Notes that he is being considered for a boarding home and there is a meeting on Wednesday about this. He believes this will be a great d/c plan for him. He has no complaints at this time. His tooth pain seems manageable. He is tolerating the Augmentin. He is for tooth extraction on Wednesday with Dr. Wilde. Review of Systems Review of Systems: All systems reviewed and are unremarkable except as noted in HPI and below Denies fevers, chills, headache, nasal congestion, sore throat, cough, chest pain, shortness of breath, palpitations, orthopnea, PND, abdominal pain, nausea, vomiting, diarrhea, constipation, dysuria, hematuria, frequency, back pain, joint pain or swelling, easy bruising or bleeding, skin lesions or rashes. Physical Exam Physical Exam: GENERAL: 66 yo wd/wn WM. Awake, alert, orientedx3. NAD. LUNGS: Clear to auscultation bilaterally. No W/R/R. CARDIOVASCULAR: Regular rate and rhythm. No M/G/R. ABDOMEN: Soft, non-tender and non-distended. BS normal x 4 quad. EXTREMITIES: No edema. Non-tender. Peripheral pulses +2/4. PSYCHIATRIC: Pleasant, cooperative. SKIN: Warm, dry, intact. No rashes or lesions. Results & Data Results & Data ([facility]) Vital Signs (Past 12 Hours) Vital Signs Temp Pulse Resp BP Pulse Ox 02/21/22 08:53 36.3 C L 66 18 135/92 97 PG Care Time/CCT Total # of Minutes Spent Total Time Spent with Patient: Total time spent is greater than 50% in coordination of care (as documented) at patient's floor/unit and/or counseling patient: Coding Level of Care Code 79982 Subseq Hosp Care Lvl 1 Diagnoses Broken tooth S02.5XXA Cognitive impairment R41.89 Encephalopathy G93.40 Delirium tremens F10.231 Positive Lyme disease serology R76.8 Hypertension I10 Alcohol dependence F10.251 Complication of substance-induced condition: with hallucinations Substance use status: alcohol-induced psychotic disorder Hepatitis C B19.20 PUD (peptic ulcer disease) K27.9 Learning disabilities F81.9 (1) Alcohol dependence Complication of substance-induced condition: with hallucinations Substance use status: alcohol-induced psychotic disorder Qualified Code(s): 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
[2022-02-21] MEDS: QUEtiapine FUMARATE 25 MG TABLET PO SCH (20:03)
[2022-02-22] MEDS: DOCUSATE SODIUM/SENNA 50/8.6MG TAB PO SCH (07:41)
[2022-02-22] MEDS: CEROVITE ADV FORMULA TAB PO SCH (07:42)
[2022-02-22] MEDS: AMOXICILLIN/CLAVULANATE 875 MG TAB PO SCH ×2 (07:42→17:03)
[2022-02-22] MEDS: METOPROLOL TARTRATE 25 MG TAB PO SCH ×2 (07:42→19:52)
[2022-02-22] MEDS: lisinopril 10 MG TAB PO SCH (07:42)
[2022-02-22] MEDS: CHECK CLONIDINE PATCH PLACEMENT SCH ×3 (07:42→23:11)
--- NOTE | 2022-02-22 10:40 | Hospitalist Progress Note ---
Date of Service February 22, 2022 Assessment & Plan (1) Broken tooth: Plan: Patient broke tooth sometime around 02/16. Is causing dental pain Tylenol/ibuprofen ordered for pain Started on Augmentin prophylactically Dr. Wilde consulted. This does not need to be done inpatient; however, we have been struggling to get patient discharged from the hospital. He has happily agreed to see patient while in house CT obtained, as above, no evidence of abscess formation Continue abx, anticipate Dr. Wilde will extract prior to d/c Pt is medically cleared to undergo anesthesia for the extraction procedure should he need it, will make NPO after MN tonight As he does have capacity at this time, he can provide his own consent to proceed (2) Cognitive impairment: Plan: - Pt initially admitted for complicated EtOH withdrawal, diagnostically c/w encephalopathy/hypoactive delirium superimposed on dementia based on prior CT imaging with age-related microvascular changes and poor performance on mini-cog testing in 2019 - Currently on Seroquel with favorable response. At this time, patient does not want to be on this and hasn't taken AM or Afternoon doses in 2 days. No behaviors. Have Stopped the daily doses and reduced HS dose - Psych has been involved in his care. * Seen by psychiatry earlier in his hospital stay and deemed to not have mental capacity to make medical decisions * Patient with significant improvement in cognition during this hospital stay. I did discuss with psychiatry and patient is able to explain to me how he would meet his daily needs if he lived independently in an apartment (how he would get food, meet his daily hygiene needs). I do feel that he currently has capacity to make medical decisions. I have spoken to his daughter multiple times over the past several days and initially she was agreeable to provide support (regarding medications, taking him to doctors appointments, and helping with his day-to-day needs); however, she is no longer agreeable to help in this matter. Case management has referrals out to multiple personal care facilities and boarding homes. Finances remain the issue. Case management did explain to the daughter that she may need to provide additional financial support if she is unable/unwilling to help him in an independent setting - He does have IM Zyprexa ordered to be utilized as directed for agitation/aggressive behavior but has not needed it for weeks (3) Encephalopathy: Plan: RESOLVED and now at what seems to be his baseline mentation - Lyme Western Blot IgG VERY positive. Western blot IgM negative.Doubt Lyme was contributing as he has received adequate treatment for this. - TSH, B12 levels both wnl. - head CT at admission with atrophy/ventriculomegaly but no ICH, CVA, etc. - RPR is nonreactive. - Ammonia levels wnl. - MRI brain 01/03 neg for acute findings (4) Delirium tremens: Plan: RESOLVED. - s/p ICU stay for his DTs - required Precedex drip, IV ativan frequently, etc. - s/p high-dose IV thiamine for numerous days. (5) Positive Lyme disease serology: Plan: - Western blot results -- IgM negative; IgG very positive with nearly all bands positive. - this would suggest early disseminated Lyme disease or later stage Lyme. since IgM was negative we are not dealing with acute/early stage Lyme. - s/p 15 days of IV rocephin -- converted to PO doxy 100mg BID x 14 days - this provided a total of 28 days of abx therapy for ?? chronic Lyme. (6) Hypertension: Plan: - Experienced hypertensive urgency earlier in hospitalization likely d/t agitation from acute withdrawal - Clonidine patch started upfront for added blood pressure control and to aid with his alcohol withdrawal symptoms. Increased to 0.2 mg - BP remains variable. Lisinopril added. BP significantly improved with this (7) Alcohol dependence: Plan: - Heavy EtOH use prior to admission, subsequently went through acute withdrawal/DTs requiring ICU stay, etc. (8) Hepatitis C: Plan: - Chronic, previously seen by ID in 2019 and was offered treatment, however declined at that time. - Reportedly has received hep A and B vaccines. - Had alcoholic hepatitis earlier this admission but LFTs normalized. - Patient with prior h/o drug abuse and had been incarcerated for illicit drugs in the past. (9) PUD (peptic ulcer disease): Plan: - cont PPI - duodenal bulb ulcer on recent EGD by [facility] (10) Learning disabilities: Plan: see scanned neuropsych testing done in the early Plan: Bonnie Morris, pt's sister -- [phone] -- she resides in [place] Shefali Cavazos - daughter - [phone] Dispo -medically stable X weeks. Issue is placement at this point. Case management involved. Target process complete. Does not require locked memory support unit and has no skilled needs. Now approved for Medicaid. Finances seem to be an issue. Cognition improved and I believe that he has capacity to make medical decisions and can live independently with additional support from his daughter. Initially she was agreeable to help provide additional support but now she is not agreeable (per case management). Case management working on helping find additional resources for patient. Daughter was able to obtain POA. Admission and Anticipated Discharge Date Admission Date: December 23, 2021 Subjective Patient seen on daily rounds this morning. Notes that he is being considered for a boarding home and there is a meeting on Wednesday about this. He believes this will be a great d/c plan for him. He has no complaints at this time. His tooth pain seems manageable. He is tolerating the Augmentin. He is for tooth extraction tomorrow with Dr. Wilde. Review of Systems Review of Systems: All systems reviewed and are unremarkable except as noted in HPI and below Denies fevers, chills, headache, nasal congestion, sore throat, cough, chest pain, shortness of breath, palpitations, orthopnea, PND, abdominal pain, nausea, vomiting, diarrhea, constipation, dysuria, hematuria, frequency, back pain, joint pain or swelling, easy bruising or bleeding, skin lesions or rashes. Physical Exam Physical Exam: GENERAL: 66 yo wd/wn WM. Awake, alert, orientedx3. NAD. LUNGS: Clear to auscultation bilaterally. No W/R/R. CARDIOVASCULAR: Regular rate and rhythm. No M/G/R. ABDOMEN: Soft, non-tender and non-distended. BS normal x 4 quad. EXTREMITIES: No edema. Non-tender. Peripheral pulses +2/4. PSYCHIATRIC: Pleasant, cooperative. SKIN: Warm, dry, intact. No rashes or lesions. Results & Data Results & Data ([facility]) Vital Signs (Past 12 Hours) Vital Signs Temp Pulse Resp BP Pulse Ox 02/22/22 07:08 36.4 C L 68 18 153/98 H 97 PG Care Time/CCT Total # of Minutes Spent Total Time Spent with Patient: Total time spent is greater than 50% in coordination of care (as documented) at patient's floor/unit and/or counseling patient: Coding Level of Care Code 87953 Subseq Hosp Care Lvl 1 Diagnoses Broken tooth S02.5XXA Cognitive impairment R41.89 Encephalopathy G93.40 Delirium tremens F10.231 Positive Lyme disease serology R76.8 Hypertension I10 Alcohol dependence F10.251 Complication of substance-induced condition: with hallucinations Substance use status: alcohol-induced psychotic disorder Hepatitis C B19.20 PUD (peptic ulcer disease) K27.9 Learning disabilities F81.9 (1) Alcohol dependence Complication of substance-induced condition: with hallucinations Substance use status: alcohol-induced psychotic disorder Qualified Code(s): 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
[2022-02-22] MEDS: QUEtiapine FUMARATE 25 MG TABLET PO SCH (19:53)
[2022-02-23] MEDS: DOCUSATE SODIUM/SENNA 50/8.6MG TAB PO SCH (07:51)
[2022-02-23] MEDS: AMOXICILLIN/CLAVULANATE 875 MG TAB PO SCH ×2 (07:52→15:11)
[2022-02-23] MEDS: METOPROLOL TARTRATE 25 MG TAB PO SCH ×2 (07:52→20:27)
[2022-02-23] MEDS: CEROVITE ADV FORMULA TAB PO SCH (07:52)
[2022-02-23] MEDS: CHECK CLONIDINE PATCH PLACEMENT SCH ×3 (07:52→23:17)
[2022-02-23] MEDS: lisinopril 10 MG TAB PO SCH (07:52)
[2022-02-23] MEDS ORDERED: PROPOFOL IV EMULSION 10 MG/ML 20 ML VIAL IV ONE (10:43)
[2022-02-23] MEDS ORDERED: DEXAMETHASONE SOD INJ 4 MG/ML VIAL ONE (10:43)
[2022-02-23] MEDS ORDERED: ROCURONIUM BROMIDE 10 MG/ML 5 ML VIAL IV ONE (10:43)
[2022-02-23] MEDS ORDERED: ePHEDrine sulfate 50 MG/ML SYR ONE (10:43)
[2022-02-23] MEDS ORDERED: GLYCOPYRROLATE 0.2 MG/ML VIAL ONE (10:43)
[2022-02-23] MEDS ORDERED: LARYING-O-JET KIT (LTA) ONE (10:43)
[2022-02-23] MEDS ORDERED: NEOSTIGMINE METHYLSULFATE 1 MG/ML 10ML VIAL ONE (10:43)
[2022-02-23] MEDS ORDERED: LIDOCAINE 2% 2 ML VIAL/AMP(20MG/ML) INFIL ONE (10:43)
[2022-02-23] MEDS ORDERED: ONDANSETRON INJ 2 MG/ML 2 ML VIAL ONE (10:43)
--- NOTE | 2022-02-23 10:43 | Anesthesiology Consultation ---
Date of Service February 23, 2022 Assessment & Plan (1) Encounter for pre-operative examination: Chart Review Chart Review: Acceptable Risk for Surgery History Surgery Operation Date: 01/01/22 17:00 Proposed Procedures p Esophagogastroduodenoscopy Dr Atwood - Jim Olivier MD Operation Date: 02/23/22 11:35 Proposed Procedures p #32 Tooth Extraction - Mane Wilde, DMD Height/Weight Height: 5 ft 9 in Weight: 82.7 kg Allergies Allergy/AdvReac Type Severity Reaction Status Date / Time bee venom protein (honey bee) AdvReac Severe Anaphylaxis Unverified 12/23/21 15:51 Medications Home Medications Medication Instructions Recorded Confirmed Last Taken No Known Home Medications 12/23/21 12/23/21 Unknown Active Medications Generic Name Dose Route Start Last Admin Trade Name Freq PRN Reason Stop Dose Admin Amoxicillin/Clavulanate Potassium 1 tab 02/18/22 10:45 02/23/22 07:52 Amoxicillin/Clavulanate 875 Mg Tab PO 02/28/22 10:44 1 tab BIDM TYLOR Administration Clonidine HCl 1 patch 02/04/22 15:30 02/18/22 16:27 Clonidine Hcl 0.2 Mg/24 Hr Transderm Sys TD 03/06/22 15:29 1 patch Q7D TYLOR Administration Lisinopril 10 mg 02/16/22 09:00 02/23/22 07:52 Lisinopril 10 Mg Tab PO 03/18/22 08:59 10 mg QAM TYLOR Administration Metoprolol Tartrate 12.5 mg 02/13/22 21:30 02/23/22 07:52 Metoprolol Tartrate 25 Mg Tab PO 03/15/22 21:29 12.5 mg BID TYLOR Administration Miscellaneous 1 ea 02/04/22 15:29 02/18/22 16:28 Remove Clonidine Patch N/A 03/06/22 15:28 1 ea CQWK TYLOR Administration Miscellaneous 1 ea 02/04/22 16:00 02/23/22 07:52 Check Clonidine Patch Placement N/A 03/06/22 15:59 1 ea QS TYLOR Administration Multivitamins/Minerals 1 tab 02/02/22 09:00 02/23/22 07:52 Cerovite Adv Formula Tab PO 03/04/22 08:59 1 tab QAM TYLOR Administration Olanzapine 5 mg 05/08/22 16:21 01/19/22 08:22 Olanzapine 10 Mg/2.1 Ml Sdv IM 5 mg Q2HWA PRN Administration Agitation Polyethylene Glycol 17 gm 02/01/22 10:26 02/19/22 20:31 Polyethylene (Miralax) 17 Gm Pack PO 03/03/22 10:25 17 gm DAILY PRN Administration Constipation Quetiapine Fumarate 25 mg 02/15/22 21:00 02/22/22 19:53 Quetiapine Fumarate 25 Mg Tablet PO 03/17/22 20:59 25 mg HS TYLOR Administration Senna/Docusate Sodium 1 tab 02/05/22 12:45 02/23/22 07:51 Docusate Sodium/Senna 50/8.6mg Tab PO 03/07/22 12:44 Not Given QAM TYLOR NPO Date Last Intake of Fluids: 12/31/21 Time Last Intake of Fluids: 00:00 Date Last Intake of Solids: 12/30/21 Time Last Intake of Solids: 12:57 Past Medical History Medical History Alcohol dependence (06/08/11) Alcohol use disorder Bee sting allergy Cognitive impairment Cognitive impairment Depression (06/08/11) Hepatitis C Hypertension Marijuana use Past Family History Family History Father Diabetes Hypertension Mother Breast cancer Denies family history of Ovarian cancer Prostate cancer Myocardial infarction Colorectal cancer Past Surgical History Surgical History Status post hernia repair Status post knee surgery Social History Smoking Status: Current some day smoker Hx Alcohol Use: Yes Alcohol type: beer and hard liquor Hx Substance Use: Yes Physical Exam Vital Signs Last Vital Signs Temp 36.7 C 02/23/22 07:24 Pulse 65 02/23/22 07:24 Resp 18 02/23/22 07:24 BP 154/91 H 02/23/22 09:02 Pulse Ox 97 02/23/22 07:24 Testing Laboratory Results 02/15/22 07:16 02/15/22 07:16 PT 10.7 Seconds (9.0-12.0) 02/15/22 07:16 INR 1.0 (0.9-1.1) 02/15/22 07:16 Urine Color [place] 12/27/21 20:52 Urine Appearance Clear (Clear) 12/27/21 20:52 Urine pH 5.5 (4.5-7.5) 12/27/21 20:52 Ur Specific [place] 1.020 (1.000-1.030) 12/27/21 20:52 Urine Protein 1+ (Negative) H 12/27/21 20:52 Urine Glucose (UA) Negative (Negative) 12/27/21 20:52 Urine Ketones 1+ (Negative) H 12/27/21 20:52 Urine Nitrite Positive (Negative) A 12/27/21 20:52 Ur Leukocyte Esterase 1+ (Negative) H 12/27/21 20:52 Urine WBC (Auto) 5-10 /hpf (0-5) H 12/27/21 20:52 Urine RBC (Auto) 10-30 /hpf (0-4) H 12/27/21 20:52 U Hyaline Cast (Auto) 5-10 /lpf (0-5) H 12/27/21 20:52 U Epithel Cells (Auto) 20-30 /lpf (0-5) H 12/27/21 20:52 Urine Bacteria (Auto) Negative (Negative) 12/27/21 20:52 12/27/21 20:52 Aerobic Blood Culture - Final Blood No growth in Aerobic bottle after 5 days. Anaerobic Blood Culture - Final No growth in Anaerobic bottle after 5 days. 12/27/21 20:59 Aerobic Blood Culture - Final Blood No growth in Aerobic bottle after 5 days. Anaerobic Blood Culture - Final No growth in Anaerobic bottle after 5 days. Electrocardiogram Date: 02/19/22 Findings: + SB @ (44)
[2022-02-23] MEDS ORDERED: fentaNYL citrate 100 MCG/2 ML VIAL ONE (10:44)
[2022-02-23] MEDS ORDERED: MIDAZOLAM HCL 1 MG/ML 2ML VIAL ONE (10:44)
[2022-02-23] MEDS ORDERED: BUPIVACAINE/EPINEPHRINE 0.5% 1:200,000 1.8 ML CARP ONE (10:53)
[2022-02-23] MEDS ORDERED: CHLORHEXIDINE GLUCONATE 0.12% 480 ML ONE (10:53)
--- NOTE | 2022-02-23 11:12 | History & Physical Bridge Note ---
Date of Service February 23, 2022 History & Physical Bridge Note I have examined the patient, reviewed the History & Physical and in the interval since the performance of the History & Physical I have noted the following changes of clinical significance: no changes noted OK for planned removal of # 32 fractured
[2022-02-23] MEDS ORDERED: ATROPINE SULFATE 0.1 MG/ML 10ML SYR IV PRN (11:31)
[2022-02-23] MEDS ORDERED: ePHEDrine sulfate 50 MG/ML AMP IV PRN (11:31)
[2022-02-23] MEDS ORDERED: fentaNYL citrate 100 MCG/2 ML VIAL IV PRN (11:31)
[2022-02-23] MEDS ORDERED: ONDANSETRON INJ 2 MG/ML 2 ML VIAL IV PRN (11:31)
--- NOTE | 2022-02-23 11:31 | Hospitalist Progress Note ---
Date of Service February 23, 2022 Assessment & Plan (1) Broken tooth: Plan: Patient broke tooth sometime around 02/16. Is causing dental pain Tylenol/ibuprofen ordered for pain Started on Augmentin prophylactically Dr. Wilde consulted. This does not need to be done inpatient; however, we have been struggling to get patient discharged from the hospital. He has happily agreed to see patient while in house CT obtained, as above, no evidence of abscess formation Continue abx, anticipate Dr. Wilde will extract prior to d/c Pt is medically cleared to undergo anesthesia for the extraction procedure should he need it, will make NPO after MN tonight As he does have capacity at this time, he can provide his own consent to proceed (2) Cognitive impairment: Plan: - Pt initially admitted for complicated EtOH withdrawal, diagnostically c/w encephalopathy/hypoactive delirium superimposed on dementia based on prior CT imaging with age-related microvascular changes and poor performance on mini-cog testing in 2019 - Currently on Seroquel with favorable response. At this time, patient does not want to be on this and hasn't taken AM or Afternoon doses in 2 days. No behaviors. Have Stopped the daily doses and reduced HS dose - Psych has been involved in his care. * Seen by psychiatry earlier in his hospital stay and deemed to not have mental capacity to make medical decisions * Patient with significant improvement in cognition during this hospital stay. I did discuss with psychiatry and patient is able to explain to me how he would meet his daily needs if he lived independently in an apartment (how he would get food, meet his daily hygiene needs). I do feel that he currently has capacity to make medical decisions. I have spoken to his daughter multiple times over the past several days and initially she was agreeable to provide support (regarding medications, taking him to doctors appointments, and helping with his day-to-day needs); however, she is no longer agreeable to help in this matter. Case management has referrals out to multiple personal care facilities and boarding homes. Finances remain the issue. Case management did explain to the daughter that she may need to provide additional financial support if she is unable/unwilling to help him in an independent setting - He does have IM Zyprexa ordered to be utilized as directed for agitation/aggressive behavior but has not needed it for weeks (3) Encephalopathy: Plan: RESOLVED and now at what seems to be his baseline mentation - Lyme Western Blot IgG VERY positive. Western blot IgM negative.Doubt Lyme was contributing as he has received adequate treatment for this. - TSH, B12 levels both wnl. - head CT at admission with atrophy/ventriculomegaly but no ICH, CVA, etc. - RPR is nonreactive. - Ammonia levels wnl. - MRI brain 01/03 neg for acute findings (4) Delirium tremens: Plan: RESOLVED. - s/p ICU stay for his DTs - required Precedex drip, IV ativan frequently, etc. - s/p high-dose IV thiamine for numerous days. (5) Positive Lyme disease serology: Plan: - Western blot results -- IgM negative; IgG very positive with nearly all bands positive. - this would suggest early disseminated Lyme disease or later stage Lyme. since IgM was negative we are not dealing with acute/early stage Lyme. - s/p 15 days of IV rocephin -- converted to PO doxy 100mg BID x 14 days - this provided a total of 28 days of abx therapy for ?? chronic Lyme. (6) Hypertension: Plan: - Experienced hypertensive urgency earlier in hospitalization likely d/t agitation from acute withdrawal - Clonidine patch started upfront for added blood pressure control and to aid with his alcohol withdrawal symptoms. Increased to 0.2 mg - BP remains variable. Lisinopril added. BP significantly improved with this (7) Alcohol dependence: Plan: - Heavy EtOH use prior to admission, subsequently went through acute withdrawal/DTs requiring ICU stay, etc. (8) Hepatitis C: Plan: - Chronic, previously seen by ID in 2019 and was offered treatment, however declined at that time. - Reportedly has received hep A and B vaccines. - Had alcoholic hepatitis earlier this admission but LFTs normalized. - Patient with prior h/o drug abuse and had been incarcerated for illicit drugs in the past. (9) PUD (peptic ulcer disease): Plan: - cont PPI - duodenal bulb ulcer on recent EGD by [facility] (10) Learning disabilities: Plan: see scanned neuropsych testing done in the early Plan: Bonnie Morris, pt's sister -- [phone] -- she resides in [place] Shefali Cavazos - daughter - [phone] Dispo -medically stable X weeks. Issue is placement at this point. Case management involved. Target process complete. Does not require locked memory support unit and has no skilled needs. Now approved for Medicaid. Finances seem to be an issue. Cognition improved and I believe that he has capacity to make medical decisions and can live independently with additional support from his daughter. Initially she was agreeable to help provide additional support but now she is not agreeable (per case management). Case management working on helping find additional resources for patient. Meeting tomorrow scheduled for possible discharge to a boarding home ([facility]). Daughter was able to obtain POA. Admission and Anticipated Discharge Date Admission Date: December 23, 2021 Subjective Patient seen on daily rounds this morning. Notes that he is being considered for a boarding home ([facility]), has a meeting scheduled for tomorrow. He is for tooth extraction today with Dr. Wilde. No other complaints/concerns. Review of Systems Review of Systems: All systems reviewed and are unremarkable except as noted in HPI and below Denies fevers, chills, headache, nasal congestion, sore throat, cough, chest pain, shortness of breath, palpitations, orthopnea, PND, abdominal pain, nausea, vomiting, diarrhea, constipation, dysuria, hematuria, frequency, back pain, joint pain or swelling, easy bruising or bleeding, skin lesions or rashes. Physical Exam Physical Exam: GENERAL: 66 yo wd/wn WM. Awake, alert, orientedx3. NAD. LUNGS: Clear to auscultation bilaterally. No W/R/R. CARDIOVASCULAR: Regular rate and rhythm. No M/G/R. ABDOMEN: Soft, non-tender and non-distended. BS normal x 4 quad. EXTREMITIES: No edema. Non-tender. Peripheral pulses +2/4. PSYCHIATRIC: Pleasant, cooperative. SKIN: Warm, dry, intact. No rashes or lesions. Results & Data Results & Data ([facility]) Vital Signs (Past 12 Hours) Vital Signs Temp Pulse Pulse Resp BP Pulse Ox 02/23/22 10:46 36.9 C 54 L 18 176/88 H 97 02/23/22 09:02 154/91 H 02/23/22 07:24 36.7 C 65 18 178/97 H 97 PG Care Time/CCT Total # of Minutes Spent Total Time Spent with Patient: Total time spent is greater than 50% in coordination of care (as documented) at patient's floor/unit and/or counseling patient: Coding Level of Care Code 66252 Subseq Hosp Care Lvl 1 Diagnoses Broken tooth S02.5XXA Cognitive impairment R41.89 Encephalopathy G93.40 Delirium tremens F10.231 Positive Lyme disease serology R76.8 Hypertension I10 Alcohol dependence F10.251 Complication of substance-induced condition: with hallucinations Substance use status: alcohol-induced psychotic disorder Hepatitis C B19.20 PUD (peptic ulcer disease) K27.9 Learning disabilities F81.9 (1) Alcohol dependence Complication of substance-induced condition: with hallucinations Substance us e status: alcohol-induced psychotic disorder Qualified Code(s): 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
[2022-02-23] MEDS ORDERED: SILVER NITR/POTASSIUM NITRATE APPLICATOR ONE (11:46)
[2022-02-23] MEDS ORDERED: SUCCINYLCHOLINE CHLORIDE 20 MG/ML 10 ML VIAL IV ONE (11:52)
--- NOTE | 2022-02-23 12:05 | Operative Report ---
PG Post Operative Report Pre & Post Diagnosis Operation Date: 01/01/22 17:00 Pre-Op Diagnosis: ALCOHOL WITHDRAWAL Post-Op Diagnosis: ALCOHOL WITHDRAWAL tube placement Operation Date: 02/23/22 11:35 Pre-Op Diagnosis: Fractured infected impacted lower right wisdom tooth. Post-Op Diagnosis: Fractured infected impacted lower right wisdom tooth. I identified the patient and participated in the time-out.: Yes Procedure Operation Date: 01/01/22 17:00 Actual Procedures p Esophagogastroduodenoscopy - Jim Olivier MD Operation Date: 02/23/22 11:35 Actual Procedures p #32 Tooth Extraction - Mane Wilde, LETI Surgeon Mane Wilde, LETI Assembly Cleaner none Estimated Blood Loss 2 Findings Consistent with Post-Op Diagnosis partial impacted tooth with deep decay Fluids none Specimens none Drains none Anesthesia Type General Complications none Indications infected and carious PBI # 32 Description of Procedure Pre-op= impacted and infected wisdom teeth #32 K01.1 [id number] partial impacted # 32 Once cleared for surgery general anesthesia was achieved, the eyes were protected by the anesthesia dept criteria.. A time out was take for patient ID, antibiotics, equipment and position verification once all agreed the procedure began. Local anesthesia was given into each area using Marcaine with a vasoconstrictor ( 1.8 ml per site). A throat pack was placed after the oral cavity was irrigated with saline. Once a surgical level of anesthesia was obtained and the local anesthesia was given time for the blocks the surgery was started. I turned my attention to the upper wisdom teeth first. Lower wisdom teeth CBI # 32 The full thick muco-periosteal flap was made on the external oblique ridge to avoid the lingual nerve. The flap was reflected to expose the impacted tooth.The bone was removed with a rongeur .The lingual plate was protected. The tooth was removed with a 301 elevator, the nerve was intact, there was no bleeding. The bone was trimmed, smoothed and the flap was closed with a few 2-0 chromic sutures. I inspected the sites to insure all bleeding was controlled. I removed the throat pack and suctioned the throat. Bilateral gauze pressure dressings were placed. All instrument and sponge count was correct. the patient was allowed to awake from the anesthesia. Once full awake the ane sthesia tube was removed and the patient was taken to the recovery room with all vital sign stable. The patient tolerated the surgery very well. I will follow the patient in my office, Rx and instructions will be given upon discharge. I attest to the content of the Intraoperative Record and any orders documented therein. Any exceptions are noted below.
--- NOTE | 2022-02-23 14:16 | Anesthesiology Progress Note ---
Date of Service February 23, 2022 Anesthesia Post Procedure Vital Signs Vital Signs: Temp Pulse Pulse Pulse Resp BP BP 02/23/22 13:39 71 14 161/98 H 02/23/22 13:16 36.8 C 73 182/89 H 02/23/22 12:45 36.4 C L 74 14 160/89 H 02/23/22 12:35 75 14 173/82 H 02/23/22 12:25 73 14 167/87 H 02/23/22 12:15 86 14 169/86 H 02/23/22 12:05 36.4 C L 70 12 177/103 H 02/23/22 10:46 36.9 C 54 L 18 176/88 H 02/23/22 09:02 154/91 H 02/23/22 07:24 36.7 C 65 18 178/97 H 02/22/22 18:39 36.6 C 61 16 180/100 H Pulse Ox 02/23/22 13:39 94 02/23/22 13:16 95 02/23/22 12:45 99 02/23/22 12:35 99 02/23/22 12:25 99 02/23/22 12:15 97 02/23/22 12:05 97 02/23/22 10:46 97 02/23/22 09:02 02/23/22 07:24 97 02/22/22 18:39 98 Pain Intensity Right Mouth: Pain Intensity: 1 Transfer of Care Handoff Completed per policy Notes Mental Status: alert / awake / arousable and participated in evaluation Patient Amnestic to Procedure: Yes Nausea / Vomiting: adequately controlled Pain: adequately controlled Airway Patency, RR, SpO2: stable & adequate BP & HR: stable & adequate Hydration State: stable & adequate Anesthetic Complications: no major complications apparent and Pt Satisfied with anesthetic care
[2022-02-23] MEDS: QUEtiapine FUMARATE 25 MG TABLET PO SCH (20:28)
[2022-02-24] MEDS: DOCUSATE SODIUM/SENNA 50/8.6MG TAB PO SCH (08:14)
[2022-02-24] MEDS: AMOXICILLIN/CLAVULANATE 875 MG TAB PO SCH (08:14)
[2022-02-24] MEDS: CHECK CLONIDINE PATCH PLACEMENT SCH (08:14)
[2022-02-24] MEDS: lisinopril 10 MG TAB PO SCH (08:14)
[2022-02-24] MEDS: CEROVITE ADV FORMULA TAB PO SCH (08:15)
[2022-02-24] MEDS: METOPROLOL TARTRATE 25 MG TAB PO SCH (08:15)
--- NOTE | 2022-02-24 18:53 | Discharge Summary ---
Date of Service February 24, 2022 Admission HPI Per Admitting Provider The patient is a 66-year-old male with a past medical history of alcohol dependence, depression, hepatitis C, and hypertension who presents to the ED via EMS. Patient called 911 today, initially he told me it was because he heard people walking on his roof, shining lights into his house, then states that he called the public relations representative to intervene on his roommate and his girlfriend who were fighting. The patient is a poor historian and lacks insight at this time, he is unable to clearly explain any of the details of what led him to be brought to the emergency department other and continues to derail the conversation to discu ss several different subjects. He is unable to give me an exact story of how he arrived here and is fairly adamant about going home to take care of "affairs", however initially agreed to let me treat his blood pressure and reassess him. Upon my second visit with patient in the ED, Dr. Tony and I discussed in detail with him in detail his elevated blood pressure which puts him at risk for several different events, including stroke, brain bleed, heart attack, all which can be catastrophic and possibly fatal. Also discussed the possibility that he is withdrawing from alcohol, however he is unable to grasp the severity, he is more adamant about returning home now and is proceeding to dress himself by putting his shirt over his gown as we discuss his situation with him. On arrival the patient is hypertensive in the 200s/100s, vital signs otherwise wnl, stable. Labs significant for Mg++ 1.6, AST 71 ALT 82, otherwise labs within normal limits. UDS negative, EtOH <10 mg/dl. CT head unremarkable, CXR unremarkable. He was given IV fluid hydration, banana bag with IV thiamine, as well as Ativan 1mg x4 in ED without resolution of restlessness. He did receive 5 mg IV Lopressor, which his blood pressure responded to favorably. Principal Diagnosis Acute alcohol withdrawal Encephalopathy Lyme disease Broken tooth Discharge Exam General: A&Ox3. NAD. Cooperative. Anxious to leave, pacing around room in anticipation of ride arriving at 2:00. HEENT: Atraumatic, normocephalic. Status post tooth extraction, no purulence/discharge/bleeding at gum. Pulm: CTAB A&P. -wheezes, -rales, -rhonchi. Symmetrical chest rise. No increase in work of breathing. No respiratory distress. Cardiac: RRR, -mrg. Radial pulses intact and symmetrical. Abdominal: Nontender, nondistended, soft. BS present. Discharge Data Allergies Allergy/AdvReac Type Severity Reaction Status Date / Time bee venom protein (honey bee) AdvReac Severe Anaphylaxis Unverified 12/23/21 15:51 Consultations 12/23/21 15:34 ED Decision to Admit Stat 12/23/21 20:23 Consult Plate Slitter And Inspector Routine 01/01/22 08:39 Consult Gastroenterology Routine 01/10/22 12:21 Consult Psychiatry Routine 02/18/22 10:18 Consult Oromaxillofacial Surgery Routine Procedures Performed Operation Date: 01/01/22 17:00 Actual Procedures p Esophagogastroduodenoscopy - Jim Olivier MD Operation Date: 02/23/22 11:35 Actual Procedures p #32 Tooth Extraction - Mane Wilde DMD Ordered Studies 12/23/21 13:43 CT head/brain wo con Stat 12/23/21 22:07 US liver Routine 01/03/22 07:52 MR brain wo/w con Urgent 02/19/22 08:35 CT facial bones wo con Routine Hospital Course (1) Broken tooth: Arvind is a 66-year-old male who presented with alcohol withdrawal, delirium tremens, encephalopathy. He was also found to have Lyme disease on admission with IgM negative suggesting prolonged disease. He was treated with 14 days of Rocephin and then doxycycline with clinical improvement. He was treated for withdrawal as below. He did clinically well and was placed to a intermediate at time of discharge due to social concerns detailed below. Blood pressure was controlled with metoprolol, clonidine, and lisinopril during admission and patient was stable on this for very admission. Recommended to consider down titrating clonidine carefully with physician follow-up due to risk of rebound with metoprolol, did have secondary benefit to this in the setting of alcohol use. To do as outpatient: 1. Routine follow-up to PCP 2. Continue lisinopril 10 mg every morning, metoprolol tartrate 12.5 mg p.o. twice daily, clonidine transdermal patch weekly. 3. Continue quetiapine 25 mg p.o. nightly 4. Continue pantoprazole 40 mg p.o. daily 5. Complete 5 days of Augmentin twice daily following broken tooth extraction Patient broke tooth sometime around 02/16. Is causing dental pain Tylenol/ibuprofen ordered for pain Started on Augmentin prophylactically Dr. Wilde consulted. This does not need to be done inpatient; however, we have been struggling to get patient discharged from the hospital. He has happily agreed to see patient while in house CT obtained, as above, no evidence of abscess formation Continued on short course of antibiotics as above following extraction Pt is medically cleared to undergo anesthesia for the extraction procedure should he need it, will make NPO after MN tonight As he does have capacity at this time, he can provide his own consent for p rocedures (2) Cognitive impairment: - Pt initially admitted for complicated EtOH withdrawal, diagnostically c/w encephalopathy/hypoactive delirium superimposed on dementia based on prior CT imaging with age-related microvascular changes and poor performance on mini- cog testing in 2019 - Currently on Seroquel with favorable response. At this time, patient does not want to be on this and hasn't taken AM or Afternoon doses in 2 days. No behaviors. Have Stopped the daily doses and reduced HS dose - Psych has been involved in his care. * Seen by psychiatry earlier in his hospital stay and deemed to not have mental capacity to make medical decisions * Patient with significant improvement in cognition during this hospital stay. I did discuss with psychiatry and patient is able to explain to me how he would meet his daily needs if he lived independently in an apartment (how he would get food, meet his daily hygiene needs). I do feel that he currently has capacity to make medical decisions. I have spoken to his daughter william ltiple times over the past several days and initially she was agreeable to provide support (regarding medications, taking him to doctors appointments, and helping with his day-to-day needs); however, she is no longer agreeable to help in this matter. Case management has referrals out to multiple personal care facilities and boarding homes. Finances remain the issue. Case management did explain to the daughter that she may need to provide additional financial support if she is unable/unwilling to help him in an independent setting - He does have IM Zyprexa ordered to be utilized as directed for agitation/aggressive behavior but has not needed it for weeks (3) Encephalopathy: RESOLVED and now at what seems to be his baseline mentation - Lyme Western Blot IgG VERY positive. Western blot IgM negative.Doubt Lyme was contributing as he has received adequate treatment for this. - TSH, B12 levels both wnl. - head CT at admission with atrophy/ventriculomegaly but no ICH, CVA, etc. - RPR is nonreactive. - Ammonia levels wnl. - MRI brain 01/03 neg for acute findings (4) Delirium tremens: RESOLVED. - s/p ICU stay for his DTs - required Precedex drip, IV ativan frequently, etc. - s/p high-dose IV thiamine for numerous days. (5) Positive Lyme disease serology: - Western blot results -- IgM negative; IgG very positive with nearly all bands positive. - this would suggest early disseminated Lyme disease or later stage Lyme. since IgM was negative we are not dealing with acute/early stage Lyme. - s/p 15 days of IV rocephin -- converted to PO doxy 100mg BID x 14 days - this provided a total of 28 days of abx therapy for ?? chronic Lyme. (6) Hypertension: - Experienced hypertensive urgency earlier in hospitalization likely d/t agitation from acute withdrawal - Clonidine patch started upfront for added blood pressure control and to aid with his alcohol withdrawal symptoms. Increased to 0.2 mg - BP remains variable. Lisinopril added. BP significantly improved with this (7) Alcohol dependence: - Heavy EtOH use prior to admission, subsequently went through acute withdrawal/DTs requiring ICU stay, etc. (8) Hepatitis C: - Chronic, previously seen by ID in 2019 and was offered treatment, however declined at that time. - Reportedly has received hep A and B vaccines. - Had alcoholic hepatitis earlier this admission but LFTs normalized. - Patient with prior h/o drug abuse and had been incarcerated for illicit drugs in the past. (9) PUD (peptic ulcer disease): - cont PPI - duodenal bulb ulcer on recent EGD by [facility] (10) Learning disabilities: see scanned neuropsych testing done in the early Bonnie Alexandra, pt's sister -- [phone] -- she resides in [place] Shefali Cavazos - daughter - [phone] Dispo -medically stable X weeks. Issue is placement at this point. Case management involved. Target process complete. Does not require locked memory support unit and has no skilled needs. Now approved for Medicaid. Finances seem to be an issue. Cognition improved and I believe that he has capacity to make medical decisions and can live independently with additional support from his daughter. Initially she was agreeable to help provide additional support but now she is not agreeable (per case management). Case management working on helping find additional resources for patient. Meeting tomorrow scheduled for possible discharge to a boarding home ([facility]). Daughter was able to obtain POA. Total Time Total Time Spent Total Time Spent (In Minutes): 45 Discharge Plan Discharge Items Patient Disposition: Personal [facility] Reason For Visit: ALCOHOL WITHDRAWAL Discharge Diagnosis: Alcohol withdrawal Cracked tooth #32 status post extraction Encephalopathy Lyme disease Activity: Resume your previous activity Non-emergency contact: Primary Care Provider Call non-emergency contact if: you have any medication questions, your symptoms worsen, your pain is not controlled and your pain is worsening Follow-up/Referrals: Stanley Hirsch CRNP [Primary Care Provider] - Mane Wilde DMD [Physician] - Diet: Regular Addtl Attending Provider Instructions: You were seen in the hospital for acute alcohol withdrawal. You were found to have lyme disease and were treated with a course of antibiotics, no additional antibiotics prescribed for Lyme at time of discharge. You had a broken tooth and were seen by oromaxillofacial surgery. You had a broken tooth extracted on 02/24/22 and were prescribed Augmentin. You been prescribed a blood pressure medication, metoprolol. Please take metoprolol tartrate 12.5 mg by mouth twice daily. You were prescribed a medication for blood pressure, lisinopril. Please take lisinopril 10 mg by mouth once in the morning for blood pressure. You prescribed a blood pressure medicine during admission, clonidine for blood pressure and secondary benefit with alcohol withdrawal. Please continue to take clonidine 0.2 mg / 24-hour patch changed weekly. If you continue to do well the dose of this can be decreased and stopped as an outpatient. Not abruptly stopped this or your metoprolol without consulting a doctor, as it can potentiate very high blood pressure when these are used in combination and they are not down titrated carefully. You have been prescribed an antibiotic as above. Please continue to take Augmentin for 5 days following a broken tooth extraction. Follow-up is being scheduled for you with your PCP and with oromaxillofacial dentistry as above. You have been prescribed an acid reducing medicine, pantoprazole. Please continue taking pantoprazole 40 mg by mouth daily and follow-up with your PCP regarding when to stop this medication. If you develop any new or worsening symptoms including fever, chills, sweats, chest pain, chest pressure, difficulty breathing, uncontrolled nausea/vomiting, rash, wheezing, passing out or nearly passing out, bleeding, black/bloody bowel movements, or other new or concerning symptoms please call your primary care physician, or call 911 for re-evaluation in the emergency department if you are very concerned. ADDITIONAL ACTIVITY RECOMMENDATIONS: * [place] teeth after every meal. It is very important to keep your mouth clean to prevent infection. * Starting tonight rinse with the Peridex as directed then 2 x a day * it is very important to keep well hydrated, this prevents fever and possible dry socket pain SPECIAL CARE INSTRUCTIONS: *It is not uncommon that between day 2-4 that your swelling will be at its worst this is very normal, do not be alarmed. * Keep ice on the side of your face for the next 24 to 36 hours. This will help keep the swelling down. * Tomorrow start rinsing your mouth with 1/2 teaspoon salt in 8 ounces warm water. This rinse should be used every 4-6 hours. * Some swelling is common. It should gradually decrease within 4-5 days. * A certain amount of bleeding is to be expected. It is often possible to control mild oozing by placing folded gauze over the area and biting down for 30 minutes. If you are unable to control excessive bleeding, call Dr Wilde at [phone] * You may experience some discomfort for a few days. If pain or swelling increases, Call Dr Wilde * office address--[address] phone # [phone] Pending Studies at Discharge: No Stand-Alone Forms: My SmartThings, Smoking Cessation Skilled Items Lines: None Urinary Catheter: No Medications and DC Order Prescriptions: New quetiapine 25 mg Tablet 25 mg PO HS Qty: 30 RF: 0 clonidine 0.2 mg/24 hr Patch Weekly 1 patch transdermal Q7D Qty: 4 RF: 0 lisinopril 10 mg Tablet 10 mg PO QAM Qty: 30 RF: 0 metoprolol tartrate 25 mg Tablet 12.5 mg PO BID Qty: 30 RF: 0 amoxicillin-pot clavulanate 875-125 mg tablet 1 tab PO BID Qty: 8 RF: 0 pantoprazole 40 mg tablet,delayed release (DR/EC) 40 mg PO DAILY Qty: 30 RF: 0 Discharge Orders: Discharge Order (Routine); Ordered 02/24/22 Ordered By: Mario Carter Admission Data Admit Date/Time: 12/23/21 18:53 Attending Provider: Mario Carter Admit Provider: Ramone Tony Primary Care Provider: Stanley Hirsch Other Providers: [place],[facility] ; [facility], ; [facility] ; [facility] ; [facility] ; Ramone Tony ; Eulogio Herron ; Thiago Major ; Sheila Gonzalez ; Amarilis Tyler ; Rajan Davis ; Linette Angulo ; Irean Lugo ; Wilma Winston ; Mane Wilde Other Interventions: Discharge Summary Assessment (RN) Last Done: 02/24/22 14:04 Coding Level of Care Code D/C DAY MANAGEMENT >30 MINS Diagnoses Broken tooth S02.5XXA Cognitive impairment R41.89 Encephalopathy G93.40 Delirium tremens F10.231 Positive Lyme disease serology R76.8 Hypertension I10 Alcohol dependence F10.251 Complication of substance-induced condition: with hallucinations Substance use status: alcohol-induced psychotic disorder Hepatitis C B19.20 PUD (peptic ulcer disease) K27.9 Learning disabilities F81.9
== END 2022-02-24 14:22 | disposition home or self-care (01) | DRG 896 ==
LOC: ED 12:05 → SUATTDRO 18:53 → 1E 18:53 → 2S 01-05 13:46 → 3W 01-17 16:48

== ENCOUNTER 2022-09-23 09:07 | Inpatient (IN) ==
[2022-09-23] MEDS ORDERED: MULTI-VITAMIN INFUSION 10 ML, THIAMINE HCL 100 MG, FOLIC ACID 1 MG in SODIUM CHLORIDE 0... IV ONE (09:25)
[2022-09-23] MEDS ORDERED: lisinopril 20 MG TAB PO STA (09:25)
[2022-09-23] MEDS ORDERED: LORazepam 2 MG/1 ML VIAL IV STA (09:25)
[2022-09-23] MEDS ORDERED: METOPROLOL TARTRATE 25 MG TAB PO ONE (09:27)
--- NOTE | 2022-09-23 09:30 | Emergency Department Note ---
Impression & Plan Hallucination, visual, Hypertension, Hypomagnesemia ED Provider Note NAME: RICO BRINK AGE: 67 SEX: M : 1955 ARRIVES VIA: Ambulance INFORMANT: Patient, EMS ED PROVIDER(S): Robbin Shaver DO CHIEF COMPLAINT: Altered mental status HPI: The patient is a 67-year-old male who presented to the emergency department for an evaluation of altered mental status. The patient has a history of alcohol abuse. He lives in a assisted living type situation. Over the last 24 hours they have noticed that he has been acting inappropriate. The patient has a history of similar episodes in the past. He was in our facility because of alcohol withdrawal. The patient states that he is not had any alcohol over the last 24 hours. He denies having any fever. He has had no recent trauma. He denies having any drug use. He denies having any vomiting or headaches. He does state that recently he has been noticing that things are "vibrating". He states for instance he was looking at something on his table when he noticed it was moving. He also notices it in poor shape shifting around him. He denies having any homicidal or suicidal ideation. ROS: See above HPI for pertinent positives & negatives. A total of 10 systems reviewed and were otherwise negative. PAST MEDICAL HISTORY: See Below PAST SURGICAL HISTORY: See Below FAMILY HISTORY: See Below SOCIAL HISTORY: See Below HOME MEDICATIONS: See Below ALLERGIES: See Below VITALS: See Below PHYSICAL EXAMINATION: GENERAL: Patient is awake alert in no acute distress patient is resting comfortably and showing no signs of anxiety EYES: The conjunctivae are clear. The pupils are round and reactive. EARS, NOSE, MOUTH AND THROAT: The nose is without any evidence of any deformity. Mucous membranes are moist. Tongue is midline. NECK: The neck is nontender and supple. RESPIRATORY: Normal respiratory effort is noted there is no evidence of wheezing rhonchi or rales CARDIOVASCULAR: Regular rate and rhythm noted there no murmurs rubs or gallops normal S1 normal S2. GASTROINTESTINAL: The abdomen is soft. Abdomen is nontender. MUSCULOSKELETAL/EXTREMITIES: There is no evidence of gross deformity full range of motion is noted in the hips and shoulders. SKIN: There is no obvious evidence of any rash. There are no petechiae, pallor or cyanosis noted. NEUROLOGIC: Patient is awake alert and oriented x3. Strength was symmetric. PSYCH: The patient makes good eye contact mostly evaluation. He is denying any suicidal homicidal ideation. He does admit to visual hallucinations. MEDICAL DECISION MAKING: Patient is a 67-year-old male who presented to the emergency department for visual hallucinations. The patient has a long history of alcohol abuse. He also has a history of hypertension. He states he is not been taking his medications appropriately. Patient was treated with Ativan as well as ant ihypertensive medication in the emergency department. He was reevaluated multiple times. He continues to have some medical findings I think could be consistent with alcohol withdrawal but also his mental status is not baseline for him. He does not appear to have any suicidal homicidal ideation. I do feel this might be more medical related. I discussed the patient's condition with the on-call [facility] hospitalist. They have agreed to evaluate the patient in the emergency department for further management and disposition. Triage Nursing notes reviewed. Prior medical records reviewed Vital Signs: reviewed and remarkable for elevated blood pressure. Differential diagnosis: Infection, hypoglycemia, electrolyte abnormalities, overdose, toxicologic, cardiac sources, intracerebral event, neurologic, trauma, as well as other pathologies. ER treatment provided: See below Diagnostics interpreted by me: ECG: EKG was obtained in the emergency department. My interpretation is normal sinus rhythm at 60 bpm. There is no ectopy. LVH was suggested by voltage criteria. Nonspecific interventricular conduction delay was noted. This was compared to a tracing from August 27, 2022. No changes were noted. Cardiac Monitoring: An order was placed for continuous cardiac monitoring. The monitor shows a rate of 73 bpm with sinus rhythm. Laboratory studies: As stated above and show below. Imaging studies: See below. Radiographic imaging was reviewed by myself Consultation(s): I discussed this case with Dr. Roman who [facility]. Past Med/Surg History Medical History Alcohol dependence (06/08/11) Alcohol use disorder Bee sting allergy Broken tooth Chronic dental pain Cognitive impairment Cognitive impairment Depression (06/08/11) Hepatitis C Hypertension Impacted third molar tooth Marijuana use Surgical History Status post hernia repair Status post knee surgery Family History Father Diabetes Hypertension Mother Breast cancer Denies family history of Ovarian cancer Prostate cancer Myocardial infarction Colorectal cancer Social History Smoking Status: Former smoker Hx Alcohol Use: Yes Alcohol type: beer and hard liquor Hx Substance Use: Yes Preferred Language: Romanian Communication Ability: Unable Visual Impairment: No Limitations Hearing Ability: Normal marital status: Single Current Living Situation: Alone current occupational status: retired Feels Safe at Home: Yes Childhood Exposure to Second-Hand Smoke: No Dental Care, Regularly: Yes Physical Activity Frequency: Does not Exercise Seatbelt Use: always Assistive Devices: None Allergies Allergies Allergy/AdvReac Type Severity Reaction Status Date / Time bee venom protein (honey bee) AdvReac Severe Anaphylaxis Unverified 03/30/22 08:45 Home Meds Previous Rx's Medication Instructions Recorded lisinopril 10 mg tablet 10 mg PO QAM #90 tabs 07/08/22 metoprolol tartrate 25 mg tablet 12.5 mg PO BID #180 tabs 07/08/22 ondansetron HCl 4 mg tablet 4 mg PO Q8H PRN nausea and 08/27/22 vomiting #20 tabs Results & Data (ED) Vital Signs Vital Signs - 24 hr 09/23/22 09:11 09/23/22 09:34 09/23/22 10:07 Temperature 36.8 C Temperature Source Oral Pulse Rate 88 Pulse Rate [Apical] Respiratory Rate 18 Respiratory Depth Normal Blood Pressure 187/110 H Blood Pressure [Left Arm] Blood Pressure Mean 135 Blood Pressure Mean [Left Arm] Blood Pressure Position Sitting Pulse Oximetry 98 97 Oxygen Delivery Method Room Air Room Air Room Air Sepsis Recent Fever Within 48 Hours No Sepsis New/Unexplained Change in Mental Status No Sepsis Action Taken by Nursing No Action Required 09/23/22 10:12 Temperature Temperature Source Pulse Rate Pulse Rate [Apical] 73 Respiratory Rate 18 Respiratory Depth Blood Pressure Blood Pressure [Left Arm] 176/114 H Blood Pressure Mean Blood Pressure Mean [Left Arm] 134 Blood Pressure Position Pulse Oximetry 98 Oxygen Delivery Method Room Air Sepsis Recent Fever Within 48 Hours Sepsis New/Unexplained Change in Mental Status Sepsis Action Taken by Residential Medications Current Medication List: was personally reviewed by me Laboratory Data Attestation: I reviewed the patient's lab results. 09/23/22 09:30 09/23/22 09:30 Lab Results 09/23/22 09/23/22 09/23/22 Range/Units 09:20 09:20 09:30 WBC 6.46 (4.8-10.8) K/ul RBC 4.84 (4.63-6.08) M/uL Hgb 14.2 (14.0-18.0) g/dl Hct 42.7 (40.1-51.0) % MCV 88.2 (80.0-100.0) fL MCH 29.3 (25.0-34.0) pg MCHC 33.3 (32.0-36.0) g/dL RDW Std Deviation 42.8 (36.4-46.3) fL RDW Coeff of Dutch 13.2 (11.5-14.5) % Plt Count 147 (130-400) K/uL MPV 11.5 (9.4-12.4) fL Immature Gran % (Auto) 0.3 % Neut % (Auto) 67.3 % Lymph % (Auto) 19.5 % Titus % (Auto) 8.4 % Eos % (Auto) 4.0 % Baso % (Auto) 0.5 % Neut # (Auto) 4.35 (1.4-6.5) K/uL Lymph # (Auto) 1.26 (1.2-3.4) K/uL Titus # (Auto) 0.54 (0.24-0.82) K/uL Eos # (Auto) 0.26 (0-0.50) K/uL Baso # (Auto) 0.03 (0-0.2) K/uL Immature Gran # (Auto) 0.02 (0.00-0.02) K/uL PT (9.0-12.0) Seconds INR (0.9-1.1) APTT (21.0-31.0) Seconds PTT Ratio Sodium (136-145) mmol/L Potassium (3.5-5.1) mmol/L Chloride (98-107) mmol/L Carbon Dioxide (21-32) mmol/L Anion Gap (3-11) BUN (6-23) mg/dl Creatinine (0.6-1.4) mg/dl Est Cr Clr Drug Dosing ml/min Est GFR ( Amer) ml/min Est GFR (Non-Af Amer) ml/min BUN/Creatinine Ratio (10-20) Glucose (70-99(Fasting)) mg/dl Calcium (8.5-10.1) mg/dl Magnesium (1.7-2.4) mg/dl Total Bilirubin (0.2-1.0) mg/dl AST (13-39) U/L ALT (7-52) U/L Alkaline Phosphatase (34-104) U/L Ammonia (18-72) umol/L Total Creatine Kinase (30-223) U/L Troponin I High Sens (0-20) pg/ml Total Protein (6.0-8.3) gm/dl Albumin (3.4-5.0) gm/dl Globulin (2.5-4.0) gm/dl Albumin/Globulin Ratio (0.9-2) Lipase (11-82) U/L Urine Color Dark Yellow Urine Appearance Clear (Clear) Urine pH 5.5 (4.5-7.5) Ur Specific [place] 1.018 (1.000-1.030) Urine Protein Trace H (Negative) Urine Glucose (UA) Negative (Negative) Urine Ketones Negative (Negative) Urine Blood Negative (Negative) Urine Nitrite Negative (Negative) Urine Bilirubin Negative (Negative) Urine Urobilinogen Negative (Negative) Ur Leukocyte Esterase Negative (Negative) Urine WBC (Auto) 1-5 (0-5) /hpf Urine RBC (Auto) 0-4 (0-4) /hpf U Hyaline Cast (Auto) 5-10 H (0-5) /lpf U Epithel Cells (Auto) 5-10 H (0-5) /lpf Urine Bacteria (Auto) Negative (Negative) Urine Crystals Not Reportable Calcium Oxalate Crystal Present A (None Prsent) Urine Mucus Present A (None Prsent) Salicylates (3.0-30) mg/dl Urine Opiates Screen Neg (Neg) Ur Methadone, Qual Neg (Neg) Acetaminophen (10-30) ug/ml Urine Barbiturates Neg (Neg) Ur Phencyclidine (PCP) Neg (Neg) U Amphetamin/Meth Scrn Neg (Neg) MDMA (Ecstasy) Screen Neg (Neg) U Benzodiazepines Scrn Neg (Neg) Ur Cocaine Metabolite Neg (Neg) U Marijuana (THC) Screen Neg (Neg) Ethyl Alcohol mg/dL (<10.0) mg/dl SARS-CoV-2, RNA, NAAT (NEGATIVE) 09/23/22 09/23/22 09/23/22 Range/Units 09:30 09:30 09:30 WBC (4.8-10.8) K/ul RBC (4.63-6.08) M/uL Hgb (14.0-18.0) g/dl Hct (40.1-51.0) % MCV (80.0-100.0) fL MCH (25.0-34.0) pg MCHC (32.0-36.0) g/dL RDW Std Deviation (36.4-46.3) fL RDW Coeff of Dutch (11.5-14.5) % Plt Count (130-400) K/uL MPV (9.4-12.4) fL Immature Gran % (Auto) % Neut % (Auto) % Lymph % (Auto) % Titus % (Auto) % Eos % (Auto) % Baso % (Auto) % Neut # (Auto) (1.4-6.5) K/uL Lymph # (Auto) (1.2-3.4) K/uL Titus # (Auto) (0.24-0.82) K/uL Eos # (Auto) (0-0.50) K/uL Baso # (Auto) (0-0.2) K/uL Immature Gran # (Auto) (0.00-0.02) K/uL PT 10.6 (9.0-12.0) Seconds INR 1.0 (0.9-1.1) APTT 26.2 (21.0-31.0) Seconds PTT Ratio 1.0 Sodium 142 (136-145) mmol/L Potassium 3.7 (3.5-5.1) mmol/L Chloride 106 (98-107) mmol/L Carbon Dioxide 29 (21-32) mmol/L Anion Gap 7 (3-11) BUN 12 (6-23) mg/dl Creatinine 0.72 (0.6-1.4) mg/dl Est Cr Clr Drug Dosing 106.8 ml/min Est GFR ( Amer) 111.1 ml/min Est GFR (Non-Af Amer) 95.9 ml/min BUN/Creatinine Ratio 16.7 (10-20) Glucose 95 (70-99(Fasting)) mg/dl Calcium 9.4 (8.5-10.1) mg/dl Magnesium 1.6 L (1.7-2.4) mg/dl Total Bilirubin 0.9 (0.2-1.0) mg/dl AST 99 H (13-39) U/L ALT 128 H (7-52) U/L Alkaline Phosphatase 70 (34-104) U/L Ammonia (18-72) umol/L Total Creatine Kinase 218 (30-223) U/L Troponin I High Sens 4.3 (0-20) pg/ml Total Protein 7.8 (6.0-8.3) gm/dl Albumin 4.1 (3.4-5.0) gm/dl Globulin 3.7 (2.5-4.0) gm/dl Albumin/Globulin Ratio 1.1 (0.9-2) Lipase 5 L (11-82) U/L Urine Color Urine Appearance (Clear) Urine pH (4.5-7.5) Ur Specific [place] (1.000-1.030) Urine Protein (Negative) Urine Glucose (UA) (Negative) Urine Ketones (Negative) Urine Blood (Negative) Urine Nitrite (Negative) Urine Bilirubin (Negative) Urine Urobilinogen (Negative) Ur Leukocyte Esterase (Negative) Urine WBC (Auto) (0-5) /hpf Urine RBC (Auto) (0-4) /hpf U Hyaline Cast (Auto) (0-5) /lpf U Epithel Cells (Auto) (0-5) /lpf Urine Bacteria (Auto) (Negative) Urine Crystals Calcium Oxalate Crystal (None Prsent) Urine Mucus (None Prsent) Salicylates < 3.0 L (3.0-30) mg/dl Urine Opiates Screen (Neg) Ur Methadone, Qual (Neg) Acetaminophen < 3 L (10-30) ug/ml Urine Barbiturates (Neg) Ur Phencyclidine (PCP) (Neg) U Amphetamin/Meth Scrn (Neg) MDMA (Ecstasy) Screen (Neg) U Benzodiazepines Scrn (Neg) Ur Cocaine Metabolite (Neg) U Marijuana (THC) Screen (Neg) Ethyl Alcohol mg/dL (<10.0) mg/dl SARS-CoV-2, RNA, NAAT (NEGATIVE) 09/23/22 09/23/2223 Range/Units 09:30 09:40 10:33 WBC (4.8-10.8) K/ul RBC (4.63-6.08) M/uL Hgb (14.0-18.0) g/dl Hct (40.1-51.0) % MCV (80.0-100.0) fL MCH (25.0-34.0) pg MCHC (32.0-36.0) g/dL RDW Std Deviation (36.4-46.3) fL RDW Coeff of Dutch (11.5-14.5) % Plt Count (130-400) K/uL MPV (9.4-12.4) fL Immature Gran % (Auto) % Neut % (Auto) % Lymph % (Auto) % Titus % (Auto) % Eos % (Auto) % Baso % (Auto) % Neut # (Auto) (1.4-6.5) K/uL Lymph # (Auto) (1.2-3.4) K/uL Titus # (Auto) (0.24-0.82) K/uL Eos # (Auto) (0-0.50) K/uL Baso # (Auto) (0-0.2) K/uL Immature Gran # (Auto) (0.00-0.02) K/uL PT (9.0-12.0) Seconds INR (0.9-1.1) APTT (21.0-31.0) Seconds PTT Ratio Sodium (136-145) mmol/L Potassium (3.5-5.1) mmol/L Chloride (98-107) mmol/L Carbon Dioxide (21-32) mmol/L Anion Gap (3-11) BUN (6-23) mg/dl Creatinine (0.6-1.4) mg/dl Est Cr Clr Drug Dosing ml/min Est GFR ( Amer) ml/min Est GFR (Non-Af Amer) ml/min BUN/Creatinine Ratio (10-20) Glucose (70-99(Fasting)) mg/dl Calcium (8.5-10.1) mg/dl Magnesium (1.7-2.4) mg/dl Total Bilirubin (0.2-1.0) mg/dl AST (13-39) U/L ALT (7-52) U/L Alkaline Phosphatase (34-104) U/L Ammonia 28.0 (18-72) umol/L Total Creatine Kinase (30-223) U/L Troponin I High Sens (0-20) pg/ml Total Protein (6.0-8.3) gm/dl Albumin (3.4-5.0) gm/dl Globulin (2.5-4.0) gm/dl Albumin/Globulin Ratio (0.9-2) Lipase (11-82) U/L Urine Color Urine Appearance (Clear) Urine pH (4.5-7.5) Ur Specific [place] (1.000-1.030) Urine Protein (Negative) Urine Glucose (UA) (Negative) Urine Ketones (Negative) Urine Blood (Negative) Urine Nitrite (Negative) Urine Bilirubin (Negative) Urine Urobilinogen (Negative) Ur Leukocyte Esterase (Negative) Urine WBC (Auto) (0-5) /hpf Urine RBC (Auto) (0-4) /hpf U Hyaline Cast (Auto) (0-5) /lpf U Epithel Cells (Auto) (0-5) /lpf Urine Bacteria (Auto) (Negative) Urine Crystals Calcium Oxalate Crystal (None Prsent) Urine Mucus (None Prsent) Salicylates (3.0-30) mg/dl Urine Opiates Screen (Neg) Ur Methadone, Qual (Neg) Acetaminophen (10-30) ug/ml Urine Barbiturates (Neg) Ur Phencyclidine (PCP) (Neg) U Amphetamin/Meth Scrn (Neg) MDMA (Ecstasy) Screen (Neg) U Benzodiazepines Scrn (Neg) Ur Cocaine Metabolite (Neg) U Marijuana (THC) Screen (Neg) Ethyl Alcohol mg/dL < 10.0 (<10.0) mg/dl SARS-CoV-2, RNA, NAAT NEGATIVE (NEGATIVE) Administered Medications Discontinued Medications Multivitamins 10 ml/ Thiamine HCl 100 mg/ Folic Acid 1 mg/Sodium Chloride 1,011.2 mls @ 1,011.2 mls/hr IV .Q1H ONE Stop: 09/23/22 10:24 Last Infusion: 09/23/22 11:03 Dose: 0 mls/hr Documented By: Admin: 09/23/22 10:00 Dose: 1,011.2 mls/hr Documented By: SLB Thiamine HCl 500 mg/ Sodium (Chloride) 55 mls @ 220 mls/hr IV NOW STA Stop: 09/23/22 12:15 Last Infusion: 09/23/22 13:20 Dose: 0 mls/hr Documented By: Admin: 09/23/22 13:04 Dose: 220 mls/hr Documented By: CECIL Lisinopril (Lisinopril 20 Mg Tab) 10 mg PO NOW STA Stop: 09/23/22 09:26 Last Admin: 09/23/22 10:00 Dose: 10 mg Documented By: NAINA Lorazepam (Lorazepam 2 Mg/1 Ml Vial) 1 mg IV NOW STA Stop: 09/23/22 09:26 Last Admin: 09/23/22 09:54 Dose: 1 mg Documented By: NAINA Magnesium Oxide (Magnesium Oxide 400 Mg Tab) 400 mg PO ONE ONE Stop: 09/23/22 10:24 Last Admin: 09/23/22 10:39 Dose: 400 mg Documented By: NAINA Metoprolol Tartrate (Metoprolol Tartrate 25 Mg Tab) 12.5 mg PO ONE ONE Stop: 09/23/22 09:28 Last Admin: 09/23/22 09:54 Dose: 12.5 mg Documented By: NAINA Imaging Data Radiologist's Impression: Chest X-Ray 09/23/22 09:25 XR chest 1V portable CLINICAL HISTORY: AMS TECHNIQUE: Single frontal radiograph of the chest was obtained. Comparison: Comparison is made to chest radiograph 08/27/2022 FINDINGS: No lines and tubes are seen. Cardiomegaly is noted. The lungs are clear. No evidence of pleural effusion or pneumothorax. IMPRESSION: No acute chest disease. Cardiomegaly is noted. ACT 112: Negative or not required by law. Electronically signed by: Jsoe Grimm M.D. 09/23/2022 10:[address] 09/23/22 09:26 CT head/brain wo con CLINICAL HISTORY: AMS Technique: Contiguous axial CT images of the head were acquired from the base of the skull to the vertex without intravenous contrast administration. Images were viewed in brain, subdural and bone windows. Automated dose lowering techniques and/or adjustment according to patient size were utilized for this exam. Comparison: Comparison is made to CT head 12/23/2021 Findings: Areas of decreased attenuation are present in the periventricular and subcortical white matter bilaterally consistent with small vessel ischemic disease. Generalized cerebral atrophy with commensurate enlargement of the ventricles, sulci, and cisterns is also present. There is no acute intracranial hemorrhage or evidence of acute territorial infarction. No shift of the midline structures, mass effect, or extra-axial abnormalities are shown. Atherosclerotic calcifications are present in the intracranial segments of the internal carotid arteries. Imaged portions of the paranasal sinuses and mastoid air cells are clear. The orbits appear normal. There are no acute fractures of the calvaria or scalp s welling. Right temporal scalp sessile lesion is unchanged from prior exam. Impression: No acute intracranial hemorrhage, no evidence of acute territorial infarction or other acute intracranial disease process. ACT 112: Negative or not required by law. Electronically signed by: Jose Grimm M.D. 09/23/2022 10:04 AM Discharge Plan Visit Data Chief Complaint: Altered Mental Status Stated Complaint: HALLUCINATIONS ED Provider: Robibn Shaver Discharge Problem: Hallucination, visual, Hypertension, Hypomagnesemia Patient Disposition: Admitted As Inpatient Discharge Instructions Interventions: ED Discharge Assessment Last Done: 09/23/22 13:13
[2022-09-23 09:59] LABS: Appearance Urine Clear (Clear); Bacteria Urine Automated Negative (Negative); Bilirubin Urine Negative (Negative); Blood Urine Negative (Negative); Color Urine Dark Yellow; Glucose Urine UA Negative (Negative); Ketones Urine Negative (Negative); Leukocyte Esterase Urine Negative (Negative); Nitrite Urine Negative (Negative); Protein Urine Trace (Negative); RBC Urine Automated 0-4 /hpf (0-4); Specific Gravity Urine 1.018 (1.000-1.030); Urobilinogen Urine Negative (Negative); pH Urine 5.5 (4.5-7.5)
[2022-09-23 09:59] LABS: Hematocrit (blood only) 42.7 % (40.1-51.0); Hemoglobin 14.2 g/dl (14.0-18.0); Mean Corpuscular Hemoglobin 29.3 pg (25.0-34.0); Mean Corpuscular Hgb Conc 33.3 g/dL (32.0-36.0); Mean Corpuscular Volume 88.2 fL (80.0-100.0); Mean Platelet Volume 11.5 fL (9.4-12.4); Platelet Count 147 K/uL (130-400); RDW Coefficient of Variation 13.2 % (11.5-14.5); RDW Standard Deviation 42.8 fL (36.4-46.3); Red Blood Count 4.84 M/uL (4.63-6.08); White Blood Count 6.46 K/ul (4.8-10.8)
--- NOTE | 2022-09-23 10:02 | XRay Report ---
XR chest 1V portable CLINICAL HISTORY: AMS TECHNIQUE: Single frontal radiograph of the chest was obtained. Comparison: Comparison is made to chest radiograph 08/27/2022 FINDINGS: No lines and tubes are seen. Cardiomegaly is noted. The lungs are clear. No evidence of pleural effus ion or pneumothorax. IMPRESSION: No acute chest disease. Cardiomegaly is noted. ACT 112: Negative or not required by law. Electronically signed by: Jose Grimm M.D. 09/23/2022 10:01 AM
[2022-09-23 10:06] LABS: Partial Thromboplastin Time 26.2 Seconds (21.0-31.0); Prothrombin Time 10.6 Seconds (9.0-12.0)
--- NOTE | 2022-09-23 10:06 | CT Scan Report ---
CT head/brain wo con CLINICAL HISTORY: AMS Technique: Contiguous axial CT images of the head were acquired from the base of the skull to the kandace rossy without intravenous contrast administration. Images were viewed in brain, subdural and [facility] . Automated dose lowering techniques and/or adjustment according to patient size were utilized for this exam. Comparison: Comparison is made to CT head 12/23/2021 Findings: Areas of decreased attenuation are present in the periventricular and subcortical white matter bilate rally consistent with small vessel ischemic disease. Generalized cerebral atrophy with commensurate e nlargement of the ventricles, sulci, and cisterns is also present. There is no acute intracranial hem orrhage or evidence of acute territorial infarction. No shift of the midline structures, mass effect, or extra-axial abnormalities are shown. Atherosclerotic calcifications are present in the intracran ial segments of the internal carotid arteries. Imaged portions of the paranasal sinuses and mastoid air cells are clear. The orbits appear normal. There are no acute fractures of the calvaria or scalp swelling. Right temporal scalp sessile lesion is unchanged from prior exam. Impression: No acute intracranial hemorrhage, no evidence of acute territorial infarction or other acute intracra nial disease process. ACT 112: Negative or not required by law. Electronically signed by: Jose Grimm M.D. 09/23/2022 10:04 AM
[2022-09-23 10:15] LABS: Basophils # (auto) 0.03 K/uL (0-0.2); Basophils % (auto) 0.5 %; Eosinophils # (auto) 0.26 K/uL (0-0.50); Immature Granulocytes # (auto) 0.02 K/uL (0.00-0.02); Immature Granulocytes % (auto) 0.3 %; Lymphocytes # (auto) 1.26 K/uL (1.2-3.4); Lymphocytes % (auto) 19.5 %; Monocytes # (auto) 0.54 K/uL (0.24-0.82); Monocytes % (auto) 8.4 %; Neutrophils # (auto) 4.35 K/uL (1.4-6.5); Neutrophils % (auto) 67.3 %
[2022-09-23 10:17] LABS: Mucus Urine Present (None Prsent)
[2022-09-23 10:18] LABS: Acetaminophen < 3 ug/ml (10-30); Albumin Globulin Ratio 1.1 (0.9-2); Albumin Level 4.1 gm/dl (3.4-5.0); BUN Creatinine Ratio 16.7 (10-20); Bilirubin,Total 0.9 mg/dl (0.2-1.0); Calcium 9.4 mg/dl (8.5-10.1); Creatinine Clr Calc Pharmacy 106.8 ml/min; Est GFR (African American) 111.1 ml/min; Est GFR (Non-African American) 95.9 ml/min; Globulin 3.7 gm/dl (2.5-4.0); Magnesium 1.6 mg/dl (1.7-2.4); Potassium 3.7 mmol/L (3.5-5.1); Salicylate < 3.0 mg/dl (3.0-30); Total Protein 7.8 gm/dl (6.0-8.3)
[2022-09-23 10:18] LABS: Calcium Oxalate Crystals Urine Present (None Prsent)
[2022-09-23 10:20] LABS: Troponin I High Sensitivity 4.3 pg/ml (0-20)
[2022-09-23 10:21] LABS: Amphetamines+Metham, Urine Neg (Neg); Barbiturates, Urine Neg (Neg); Benzodiazepine, Urine Neg (Neg); Cocaine, Urine Neg (Neg); MDMA (Ecstacy), Urine Neg (Neg); Methadone, Urine Neg (Neg); Opiate, Urine Neg (Neg); Phencyclidine, Urine Neg (Neg)
[2022-09-23] MEDS ORDERED: MAGNESIUM OXIDE 400 MG TAB PO ONE (10:23)
--- NOTE | 2022-09-23 11:33 | Electrocardiogram Report ---
Test Reason : Blood Pressure : / mmHG Vent. Rate : 068 BPM Atrial Rate : 068 BPM P-R Int : 130 ms QRS Dur : 094 ms QT Int : 424 ms P-R-T Axes : 003 061 006 degrees QTc Int : 450 ms Normal sinus rhythm Normal ECG When compared with ECG of 27-AUG-2022 09:24, No significant change was found Confirmed by Andres Puente ([id number]) on 09/23/2022 11:32:24 AM Referred By: ED Confirmed By:Andres Puente
--- NOTE | 2022-09-23 11:38 | History & Physical Report ---
Date of Service September 23, 2022 Assessment & Plan (1) Hallucination, visual: Plan: Not clear whether this is due to Wernicke's, assisted alcohol use or alcohol withdrawal hallucinosis. He does not appear to otherwise be going through alcohol withdrawal at this time with no anxiety, tremors, palpitations, GI symptoms or fever - however certainly high risk of this with his last drink three days ago this fits with alcohol hallucinosis and given prior precedex and ICU admission in December warrants close observation (2) Alcohol use disorder: Plan: Last drink 3 days ago per patient. Ethyl alcohol level negative on admission. Unclear if current hallucinations represent withdrawal AWSS Lorazepam 1mg PRN - if requiring regularly will need to increase dosing (3) Encephalopathy: Plan: CT head without acute intracranial pathology Concerning for Wernicke's encephalopathy with nystagmus, unbalance and will continue with thiamine 500 mg IV 3 times daily (4) PUD (peptic ulcer disease): Plan: Prior history. Not on PPI. Monitor CBC. (5) Hypomagnesemia: Plan: Mg level 1.6. Mg ox 400mg PO given in ER, will give 1g IV Repeat level in AM Plan VTE Prophylaxis - Lovenox 40 mg SQ daily Diet - regular Disposition - admit to PCU given high risk of worsening alcohol withdrawal Admission and Anticipated Discharge Date Admission Date: September 23, 2022 History of Present Illness Chief Complaint: Hallucinations Primary Care Provider: NUBIA Greene Arvind Sinclair is a 67 year old male who lives at [facility] presents to the ER with altered mental state and visual hallucinations. Patient seeing shapes shifting and things moving that should not be. Reportedly going on for months but much worse recently. Unsteady on feet. Has a long history of alcohol abuse and previous withdrawal admitted from December to February 2022 requiring a Precedex drip and ICU admission. He went back to drinking alcohol and last drink 3 days ago. He drinks a fifth of vodka a day. He has not taking his usual blood pressure medications in the last 2 days. No agitation, tremors, GI upset, reduced appetite, headache, fevers, palpitations, seizures. Allergies Allergy/AdvReac Type Severity Reaction Status Date / Time bee venom protein (honey bee) AdvReac Severe Anaphylaxis Unverified 03/30/22 08:45 Home Medications Medication Instructions Recorded Confirmed Type lisinopril 10 mg tablet 10 mg PO QAM #90 tabs 07/08/22 08/27/22 Rx metoprolol tartrate 25 mg tablet 12.5 mg PO BID #180 tabs 07/08/22 08/27/22 Rx ondansetron HCl 4 mg tablet 4 mg PO Q8H PRN nausea and 08/27/22 Rx vomiting #20 tabs Past Med/Surg History Medical History Alcohol dependence (06/08/11) Alcohol use disorder Bee sting allergy Broken tooth Chronic dental pain Cognitive impairment Cognitive impairment Depression (06/08/11) Hepatitis C Hypertension Impacted third molar tooth Marijuana use Surgical History Status post hernia repair Status post knee surgery Family History Father Diabetes Hypertension Mother Breast cancer Denies family history of Ovarian cancer Prostate cancer Myocardial infarction Colorectal cancer Social History Smoking Status: Former smoker Hx Alcohol Use: Yes Alcohol type: beer Hx Substance Use: Yes Last Used Substance: Unknown Last Used Substance Other:: back in high school Preferred Language: Kittitian Communication Ability: Effective Visual Impairment: No Limitations Hearing Ability: Normal Manager Fine Dining Required: No marital status: Single Current Living Situation: Boarding Home and Other Current Living Situation Comment: [facility] current occupational status: retired Other Information That Helps Us Care for You: No Feels Safe at Home: Yes Safety Concerns: Feels Safe At This Time Childhood Exposure to Second-Hand Smoke: No Dental Care, Regularly: Yes Physical Activity Frequency: Does not Exercise Seatbelt Use: always Assistive Devices: None Review of Systems Review of Systems: All systems reviewed & are unremarkable except as noted in HPI & below Physical Exam Constitutional: WD/WN, vitals as above Eyes: PERRL, conjunctivae normal, anicteric sclerae (no diplopia) + nystagmus (bilateral horizontal) ENMT: external ear and nose normal, oropharynx normal Respiratory: normal respiratory effort, lungs clear to auscultation Cardiovascular: RRR, no murmur, no edema Gastrointestinal (Abdomen): normal bowel sounds, soft, nontender, no hepatosplenomegaly Musculoskeletal: no cyanosis or clubbing, extremities motor strength 5/5 Skin: no rashes, warm and dry Neurologic: moves all extremities and awake; no focal motor deficits and not confused Psychiatric: Orientation: alert, oriented to person and oriented to place; + not oriented to time Results & Data Results & Data ([facility]) Vital Signs (Past 12 Hours) Vital Signs Temp Pulse Pulse Resp BP BP Pulse Ox 09/23/22 10:12 73 18 176/114 H 98 09/23/22 10:07 97 09/23/22 09:34 09/23/22 09:11 36.8 C 88 18 187/110 H 98 O2 Del Method 09/23/22 10:12 Room Air 09/23/22 10:07 Room Air 09/23/22 09:34 Room Air 09/23/22 09:11 Room Air Laboratory Results Abnormal lab results 09/23/22 09/23/22 09/23/22 Range/Units 09:20 09:30 09:30 POC Glucose (70-99) mg/dl Magnesium 1.6 L (1.7-2.4) mg/dl AST 99 H (13-39) U/L ALT 128 H (7-52) U/L Lipase 5 L (11-82) U/L Urine Protein Trace H (Negative) U Hyaline Cast (Auto) 5-10 H (0-5) /lpf U Epithel Cells (Auto) 5-10 H (0-5) /lpf Calcium Oxalate Crystal Present A (None Prsent) Urine Mucus Present A (None Prsent) Salicylates < 3.0 L (3.0-30) mg/dl Acetaminophen < 3 L (10-30) ug/ml 09/23/22 Range/Units 14:05 POC Glucose 123 H (70-99) mg/dl Magnesium (1.7-2.4) mg/dl AST (13-39) U/L ALT (7-52) U/L Lipase (11-82) U/L Urine Protein (Negative) U Hyaline Cast (Auto) (0-5) /lpf U Epithel Cells (Auto) (0-5) /lpf Calcium Oxalate Crystal (None Prsent) Urine Mucus (None Prsent) Salicylates (3.0-30) mg/dl Acetaminophen (10-30) ug/ml Diagnostic Findings XR chest 1V portable CLINICAL HISTORY: AMS TECHNIQUE: Single frontal radiograph of the chest was obtained. Comparison: Comparison is made to chest radiograph 08/27/2022 FINDINGS: No lines and tubes are seen. Cardiomegaly is noted. The lungs are clear. No evidence of pleural effusion or pneumothorax. IMPRESSION: No acute chest disease. Cardiomegaly is noted. CT head/brain wo con CLINICAL HISTORY: AMS Technique: Contiguous axial CT images of the head were acquired from the base of the skull to the vertex without intravenous contrast administration. Images were viewed in brain, subdural and bone windows. Automated dose lowering techniques and/or adjustment according to patient size were utilized for this exam. Comparison: Comparison is made to CT head 12/23/2021 Findings: Areas of decreased attenuation are present in the periventricular and subcortical white matter bilaterally consistent with small vessel ischemic disease. Generalized cerebral atrophy with commensurate enlargement of the ventricles, sulci, and cisterns is also present. There is no acute intracranial hemorrhage or evidence of acute territorial infarction. No shift of the midline structures, mass effect, or extra-axial abnormalities are shown. Atheros clerotic calcifications are present in the intracranial segments of the internal carotid arteries. Imaged portions of the paranasal sinuses and mastoid air cells are clear. The orbits appear normal. There are no acute fractures of the calvaria or scalp swelling. Right temporal scalp sessile lesion is unchanged from prior exam. Impression: No acute intracranial hemorrhage, no evidence of acute territorial infarction or other acute intracranial disease process. Medications Administered ER medications given: Banana bag Lorazepam 1 mg Lisinopril 10 mg p.o. Metoprolol tartrate 12.5 mg p.o. Magnesium oxide 400 mg p.o. ECG Indication: altered mental status Rate (beats per minute): 68 Rhythm: normal sinus Findings: no acute ischemic change Comparison ECG Date: from (August 27, 2022) Change: no significant change Code Status & VTE Plan Code Status Full VTE Prophylaxis Plan VTE Prophylaxis will be ordered: Yes PG Care Time/CCT Total # of Minutes Spent Total Time Spent with Patient: Total time spent is greater than 50% in coordination of care (as documented) at patient's floor/unit and/or counseling patient: Coding Level of Care Code 59933 INT INP/OBS CARE 3/75MIN Diagnoses Hallucination, visual R44.1 Alcohol use disorder F19.90 Encephalopathy G93.40 PUD (peptic ulcer disease) K27.9 Hypomagnesemia E83.42
[2022-09-23] MEDS ORDERED: THIAMINE HCL 500 MG in SODIUM CHLORIDE 0.9% 50 ML IV STA (12:14)
[2022-09-23] MEDS ORDERED: LORazepam 2 MG/1 ML VIAL IV PRN (15:27)
[2022-09-23] MEDS ORDERED: MAGNESIUM SULFATE / D5W 1 GM/100 ML BAG IV ONE (20:15)
[2022-09-23] MEDS: THIAMINE HCL 500 MG in SODIUM CHLORIDE 0.9% 50 ML IV SCH (20:45)
[2022-09-23] MEDS: METOPROLOL TARTRATE 25 MG TAB PO SCH (20:48)
[2022-09-23] MEDS: ENOXAPARIN INJ 40 MG/0.4 ML SYR SQ SCH (20:49)
[2022-09-24 06:50] LABS: Basophils # (auto) 0.03 K/uL (0-0.2); Basophils % (auto) 0.5 %; Eosinophils # (auto) 0.43 K/uL (0-0.50); Eosinophils % (auto) 6.5 %; Hematocrit (blood only) 36.7 % (40.1-51.0); Hemoglobin 12.1 g/dl (14.0-18.0); Immature Granulocytes # (auto) 0.02 K/uL (0.00-0.02); Immature Granulocytes % (auto) 0.3 %; Lymphocytes # (auto) 1.71 K/uL (1.2-3.4); Lymphocytes % (auto) 25.8 %; Mean Corpuscular Hemoglobin 28.8 pg (25.0-34.0); Mean Corpuscular Volume 87.4 fL (80.0-100.0); Mean Platelet Volume 12.3 fL (9.4-12.4); Monocytes # (auto) 0.74 K/uL (0.24-0.82); Monocytes % (auto) 11.2 %; Neutrophils % (auto) 55.7 %; Platelet Count 119 K/uL (130-400); RDW Coefficient of Variation 13.2 % (11.5-14.5); RDW Standard Deviation 42.3 fL (36.4-46.3); White Blood Count 6.63 K/ul (4.8-10.8)
[2022-09-24 08:45] LABS: BUN Creatinine Ratio 20.3 (10-20); Calcium 8.7 mg/dl (8.5-10.1); Est GFR (African American) 113.1 ml/min; Est GFR (Non-African American) 97.5 ml/min; Potassium 3.6 mmol/L (3.5-5.1)
[2022-09-24] MEDS: FOLIC ACID 1 MG TAB PO SCH (08:50)
[2022-09-24] MEDS: lisinopril 10 MG TAB PO SCH (08:51)
[2022-09-24] MEDS: METOPROLOL TARTRATE 25 MG TAB PO SCH ×2 (08:51→19:47)
[2022-09-24] MEDS: THIAMINE HCL 500 MG in SODIUM CHLORIDE 0.9% 50 ML IV SCH ×3 (08:55→20:25)
--- NOTE | 2022-09-24 11:49 | Hospitalist Progress Note ---
Date of Service September 24, 2022 Assessment & Plan (1) Hallucination, visual: Plan: -Patient admits to alcohol use -Was admitted on account of hallucinations -By his own admission, he said he fell off the wagon and started drinking again -Denies any current hallucinations -Patient could be exhibiting signs of early weineckes -CT head did not show any acute pathology -No signs of alcohol withdrawal -He is now back to baseline and wants to go back to his residence (2) Alcohol use disorder: Plan: Last drink 3 days prior to presentation per patient. Ethyl alcohol level negative on admission. AWSS Lorazepam 1mg PRN for withdrawal (3) Encephalopathy: Plan: Patient now back to baseline CT head without acute intracranial pathology Concerning for Wernicke's encephalopathy with nystagmus, unbalance and will continue with thiamine 500 mg IV 3 times daily (4) PUD (peptic ulcer disease): Plan: Prior history. Not on PPI. Monitor CBC. (5) Hypomagnesemia: Plan: Mg level 1.6. Mg ox 400mg PO given in ER, will give 1g IV Repeat level in AM Plan VTE Prophylaxis - Lovenox 40 mg SQ daily Diet - regular Disposition - d/c when accepted Admission and Anticipated Discharge Date Admission Date: September 23, 2022 Subjective patient seen and examined, denies any more hallucinations, says he wants to go back to his residence Review of Systems Review of Systems: All systems reviewed are negative, apart from the ones contained in the history. Physical Exam Physical Exam: The patient is awake, alert and oriented 3, well developed and well nourished, normocephalic and atraumatic, lying in bed and in no acute distress. HEENT--PERRL, EOMI, mucous membranes and oropharynx mildly dry Neck--supple. No JVD. No bruits. Thyroid normal, trachea midline, no adenopathy. Heart--normal S1 and S2. No murmurs, rubs or gallops. Lungs--clear bilaterally, no respiratory distress, no accessory muscle use. Abdomen--normal bowel sounds and soft. Mild epigastric and left sided abdominal pain Extremities--no cyanosis or clubbing. No edema. Dermatologic--normal skin turgor, normal color, no abnormal lymph nodes, no rash. Neurologic--cranial nerves II through XII grossly intact. Rheumatologic--normal range of motion. Psychiatric--normal affect. Results & Data Results & Data ([facility]) Vital Signs (Past 12 Hours) Vital Signs Temp Pulse Resp BP BP Pulse Ox O2 Del Method 09/24/22 11:00 98.2 F 99 H 16 154/74 H 92 Room Air 09/24/22 07:44 97.5 F L 72 18 162/76 H 95 Room Air 09/24/22 03:23 98.1 F 70 18 146/78 H 96 Room Air PG Care Time/CCT Total # of Minutes Spent Total Time Spent with Patient: Total time spent is greater than 50% in coordination of care (as documented) at patient's floor/unit and/or counseling patient: Coding Level of Care Code 17782 SUB INP/OBS CARE 2/35MIN Diagnoses Hallucination, visual R44.1 Alcohol use disorder F19.90 Encephalopathy G93.40 PUD (peptic ulcer disease) K27.9 Hypomagnesemia E83.42 Time Spent (min) 35
[2022-09-24] MEDS: ENOXAPARIN INJ 40 MG/0.4 ML SYR SQ SCH (19:49)
[2022-09-25] MEDS: lisinopril 10 MG TAB PO SCH (08:39)
[2022-09-25] MEDS: FOLIC ACID 1 MG TAB PO SCH (08:39)
[2022-09-25] MEDS: METOPROLOL TARTRATE 25 MG TAB PO SCH ×2 (08:39→21:32)
[2022-09-25] MEDS: THIAMINE HCL 500 MG in SODIUM CHLORIDE 0.9% 50 ML IV SCH ×3 (08:46→21:33)
--- NOTE | 2022-09-25 12:21 | Psychiatric Consultation ---
Date of Consultation September 25, 2022 Impression / Recommendations Impression Diagnostically consistent with combination of cognitive impairment/dementia, lifelong learning disabilities, chronic heavy alcohol use, and alcohol withdrawal delirium with history of prolonged (>1 month) delirium. He previously responded well to Seroquel which could be restarted for paranoia and management of dementia and delirium agitation if needed once outside seizure risk period of acute withdrawal. Assessment of Decision-Making Capacity Criterion (X=present) Patient Task LACKING Communicates a choice Patient is able to clearly indicate preferred treatment option in a clear and consistent manner: No, cannot consistently state where he would go or live and seems to struggle with recalling where he recently was living and is now homeless LACKING Understands information provided Patient understands their condition and treatment options: No, he doesn't understand and cannot describe that he is being treated for alcohol withdrawal LACKING Appreciates consequences Patient shows appropriately nuanced appreciation for the risks & benefits associated with available treatment options, including no treatment: NO cannot speak to risks of having a seizure or what he would do if he could not return his prior residence or how he would navigate finding a new place to live LACKING Manipulates relevant information Patient able to rationally weigh risks & benefits, as well as offer reasons for their decision: Delirium and cognitive impairments impacting this It is important to note that a patient's decision can be unwise as long as a rational process was used to arrive at it. Decision making capacity determ inations are decision and time specific. He DOES NOT have capacity to determine his disposition options or leave AMA. He is not able to articulate reasons for his decision and shows signs of cognitive impairment and delirium which interfere with his ability to meaningfully understand information and appreciate the risks of refusing treatment. The patient's decision making capacity could change in the future given that their mental status and various other factors can certainly fluctuate over time but given the chronic nature of his cognitive impairment, he is unlikely to be able regain capacity regarding disposition or leaving AMA but this should be re-assessed if significant improvements are noted in terms of his mental status/cognitive abilities. (1) Cognitive impairment: (2) Learning disabilities: (3) Alcohol use disorder: (4) Encephalopathy: Plan -He does not have decision making capacity to leave AMA or determine disposition options; would involve his POA who can serve as surrogate decision maker on his behalf -Consider re-initiation of seroquel 25mg hs once outside seizure risk period for alcohol withdrawal -For behavior emergency would use: olanzapine 2.5 mg IM x 1 (DO NOT exceed 10mg per 24 hours, check EKG if IM dose required, NEVER co-administer with IM or IV benzodiazepines). Risk Factors Assessment Do You Have Access To A Gun?: No Psych History Identifying Data 67 yo man with history of cognitive impairment, alcohol use disorder and delirium during previous hospitalization in mid-2021 admitted medically for complicated alcohol withdrawal. Psychiatry consulted for decision making capacity about disposition options/leaving AMA. Chief Complaint "I want to go back to [facility], you all are the ones telling them not to take me back". History of Present Illness Arvind is well known to the psychiatry consult service from his previous medical admission from December to February of 2022. He's admitted currently after presenting with alerted mental status and visual hallucinations in the context of stopping alcohol use three days prior. He describes relapsing on alcohol use a few months ago and up until three days ago was drinking about 1/5 of vodka per day. He recognizes this was a lot but is also unclear with his long-term goals regarding alcohol and if he would return to drinking again. Tells me his mood is "you know how it is". Oriented to person and being in the hospital but doesn't know the month and thinks the year is "2-2-0-3". Per sure scripts review doesn't appear to have filled the seroquel he was discharged on in February 2022 since early fall 2021. His daughter has POA for healthcare, no psychiatric POA known. He struggles to provide a linear history about where he has been living recently, at times tells me [place] then says it was a motel in [place] then says at [facility]. Feels there would be no risks to leaving the hospital today and thinks we are all lying to him that he is not welcome back at his apartment at [place] due to his alcohol use. He denies AH today. He was unable to provide any other meaningful recent history. Further collateral per psych liason's interaction with him last evening as documented in note from 09/25/2022: "Patient seen for initial consult, alert to person place and situation, patient denies SI/HI, currently denying hallucinations/delusions but states "do you believe in shape shifters? I see them when I drink. They start off as a spider, or a bug, like a daddy long legs, and then turn into a stick" patient again then confirmed he is not seeing these things but "I will if I start drinking again", he goes on to say "yeah like the Aztecs used to drill holes in peoples skulls. Not sure if it worked for anything, but they would stick a stick in the hole and it would grow longer based on how smart the person was. Like these shapeshifter sticks", explained to patient reason for visit and attempted to redirect - patient states he "fell off the wagon" about a month ago and started drinking up to a 1/5th of vodka a day, patient is unsure what he would do if he can't go back to his assisted living home - but he wants to stop drinking and feels its best to go somewhere without access to alcohol, he also speaks to the multi month long process that placement required last admission, patient states "I want to get an commercial attorney that can set me up with hospice, that is what my dad did" - reiterated to patient that this was a conversation he could have post-discharge but not related to the reason for consult. Patient states "well I came in here on my own how can they kick me out?" - told patient that psychiatrist would round tomorrow for additional assessment. He denied other questions at this time." Past Psychiatric History Do You Have Access To A Gun?: No Allergies Allergy/AdvReac Type Severity Reaction Status Date / Time bee venom protein (honey bee) AdvReac Severe Anaphylaxis Unverified 03/30/22 08:45 Home Medications Medication Instructions Recorded Confirmed Type lisinopril 10 mg tablet 10 mg PO QAM #90 tabs 07/08/22 08/27/22 Rx metoprolol tartrate 25 mg tablet 12.5 mg PO BID #180 tabs 07/08/22 08/27/22 Rx ondansetron HCl 4 mg tablet 4 mg PO Q8H PRN nausea and 08/27/22 Rx vomiting #20 tabs Substance Abuse History extensive alcohol use history-longest period of sobriety was 9 years during period of incarceration Personal History Living Arrangements: Homeless Patient History Medical History Alcohol dependence (06/08/11) Alcohol use disorder Bee sting allergy Broken tooth Chronic dental pain Cognitive impairment Cognitive impairment Depression (06/08/11) Hepatitis C Hypertension Impacted third molar tooth Marijuana use Surgical History Status post hernia repair Status post knee surgery Family History Father Diabetes Hypertension Mother Breast cancer Denies family history of Ovarian cancer Prostate cancer Myocardial infarction Colorectal cancer Social History Smoking Status: Former smoker Hx Alcohol Use: Yes Alcohol type: beer Hx Substance Use: Yes Last Used Substance: Unknown Last Used Substance Other:: back in high school Preferred Language: Norwegian Communication Ability: Effective Visual Impairment: No Limitations Hearing Ability: Normal Epic Cupid Analyst Required: No marital status: Single Current Living Situation: Boarding Home and Other Current Living Situation Comment: [facility] current occupational status: retired Other Information That Helps Us Care for You: No Feels Safe at Home: Yes Safety Concerns: Feels Safe At This Time Childhood Exposure to Second-Hand Smoke: No Dental Care, Regularly: Yes Physical Activity Frequency: Does not Exercise Seatbelt Use: always Assistive Devices: None Physical Exam Psychiatric: Orientation: alert, oriented to person and oriented to place; + not oriented to time Apperance: + disheveled Eye Contact: good eye contact Motor Behavior: no abnormal motor movements Speech: normal rate/rhythm/volume of speech Affect: euthymic affect Mood: + irritable mood Thought Process: + looseness of associations; + thought process not linear or logical Thought Content: + preoccupation and + paranoid Suicidal Thoughts: denies suicidal thoughts Homicidal Thoughts: denies homicidal thoughts Hallucinations: no auditory hallucinations and no visual hallucinations Cognition: language grossly intact; + recent memory not intact, + remote memory not intact and + attention not intact Insight: + severely impaired insight Judgement: + severely impaired judgement Vital Signs (Past 24 Hours): Last Vital Signs Temp 36.4 C L 09/25/22 11:44 Pulse 70 09/25/22 11:44 Resp 19 09/25/22 11:44 BP 190/102 H 09/25/22 11:44 Pulse Ox 97 09/25/22 11:44 O2 Del Method 09/25/22 11:44 Review of Systems Unobtainable due to cognitive status Results & Data ([facility]) Laboratory Results Na+ normal Diagnostic Findings QTc nml on EKG prior head CT showing microvascular changes Medications Administered Enoxaparin Sodium (Enoxaparin Inj 40 Mg/0.4 Ml Syr) 40 mg SQ QPM TYLOR Stop: 10/23/22 20:59 Last Admin: 09/24/22 19:49 Dose: Not Given Documented By: Admin: 09/23/22 20:49 Dose: 40 mg Documented By: CHAITANYA Folic Acid (Folic Acid 1 Mg Tab) 1 mg PO QA TYLOR Stop: 10/24/22 08:59 Last Admin: 09/25/22 08:39 Dose: 1 mg Documented By: Admin: 09/24/22 08:50 Dose: 1 mg Documented By: AMADOR Thiamine HCl 500 mg/ Sodium (Chloride) 55 mls @ 220 mls/hr IV TID TYLOR Stop: 10/23/22 20:59 Last Infusion: 09/25/22 09:02 Dose: 0 mls/hr Documented By: Admin: 09/25/22 08:46 Dose: 220 mls/hr Documented By: Admin: 09/24/22 20:25 Dose: Not Given Documented By: Infusion: 09/24/22 14:49 Dose: 0 mls/hr Documented By: Admin: 09/24/22 13:41 Dose: 220 mls/hr Documented By: Infusion: 09/24/22 09:28 Dose: 0 mls/hr Documented By: Admin: 09/24/22 08:55 Dose: 220 mls/hr Documented By: Infusion: 09/23/22 21:01 Dose: 0 mls/hr Documented By: Admin: 09/23/22 20:45 Dose: 220 mls/hr Documented By: CHAITANYA Lisinopril (Lisinopril 10 Mg Tab) 10 mg PO QAM TYLOR Stop: 10/24/22 08:59 Last Admin: 09/25/22 08:39 Dose: 10 mg Documented By: Admin: 09/24/22 08:51 Dose: 10 mg Documented By: AMADOR Metoprolol Tartrate (Metoprolol Tartrate 25 Mg Tab) 12.5 mg PO BID TYLOR Stop: 02/10/23 20:59 Last Admin: 09/25/22 08:39 Dose: 12.5 mg Documented By: Admin: 09/24/22 19:47 Dose: 12.5 mg Documented By: Admin: 09/24/22 08:51 Dose: 12.5 mg Documented By: Admin: 09/23/22 20:48 Dose: 12.5 mg Documented By: MNM Coding Level of Care Code INP/OBS CONSULT LVL 3, 45 MIN Diagnoses Cognitive impairment R41.89 Learning disabilities F81.9 Alcohol use disorder F19.90 Encephalopathy G93.40 Time Spent (min) 50
--- NOTE | 2022-09-25 12:42 | Hospitalist Progress Note ---
Date of Service September 25, 2022 Assessment & Plan (1) Hallucination, visual: Plan: -Patient admits to alcohol use -Was admitted on account of hallucinations -By his own admission, he said he fell off the wagon and started drinking again -Denies any current hallucinations -Patient could be exhibiting signs of early weineckes -CT head did not show any acute pathology -No signs of alcohol withdrawal -Psych eval determines patient cannot leave AMA -Plans for placement for him, his previous place would not take him back due to continued alcohol abuse, and he is a danger to himself and public (2) Alcohol use disorder: Plan: Last drink 3 days prior to presentation per patient. Ethyl alcohol level negative on admission. 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 Not on PPI. Monitor CBC. (5) Hypomagnesemia: Plan: resolved Plan VTE Prophylaxis - Lovenox 40 mg SQ daily Diet - regular Disposition - Plans for placement for him, his previous place would not take him back due to continued alcohol abuse, and he is a danger to himself and public Admission and Anticipated Discharge Date Admission Date: September 23, 2022 Subjective patient seen and examined, denies any more hallucinations, says he wants to go back to his residence Review of Systems Review of Systems: All systems reviewed are negative, apart from the ones contained in the history. Physical Exam Physical Exam: The patient is awake, alert and oriented 3, well developed and well nourished, normocephalic and atraumatic, lying in bed and in no acute distress. HEENT--PERRL, EOMI, mucous membranes and oropharynx mildly dry Neck--supple. No JVD. No bruits. Thyroid normal, trachea midline, no adenopathy. Heart--normal S1 and S2. No murmurs, rubs or gallops. Lungs--clear bilaterally, no respiratory distress, no accessory muscle use. Abdomen--normal bowel sounds and soft. Mild epigastric and left sided abdominal pain Extremities--no cyanosis or clubbing. No edema. Dermatologic--normal skin turgor, normal color, no abnormal lymph nodes, no rash. Neurologic--cranial nerves II through XII grossly intact. Rheumatologic--normal range of motion. Psychiatric--normal affect. Results & Data Results & Data ([facility]) Vital Signs (Past 12 Hours) Vital Signs Temp Pulse Pulse Resp BP Pulse Ox O2 Del Method 09/25/22 11:44 97.5 F L 70 19 190/102 H 97 Room Air 09/25/22 08:00 58 L 09/25/22 07:59 97.5 F L 66 20 184/110 H 96 Room Air 09/25/22 03:38 97.9 F 64 18 178/88 H 98 Room Air PG Care Time/CCT Total # of Minutes Spent Total Time Spent with Patient: Total time spent is greater than 50% in coordination of care (as documented) at patient's floor/unit and/or counseling patient: Coding Level of Care Code 82659 SUB INP/OBS CARE 2/35MIN Diagnoses Hallucination, visual R44.1 Alcohol use disorder F19.90 Encephalopathy G93.40 PUD (peptic ulcer disease) K27.9 Hypomagnesemia E83.42 Time Spent (min) 35
[2022-09-25] MEDS: cloNIDine HCL 0.1 MG TAB PO SCH ×2 (13:12→21:32)
[2022-09-25] MEDS: ENOXAPARIN INJ 40 MG/0.4 ML SYR SQ SCH (21:32)
[2022-09-26] MEDS: FOLIC ACID 1 MG TAB PO SCH (08:32)
[2022-09-26] MEDS: lisinopril 10 MG TAB PO SCH (08:33)
[2022-09-26] MEDS: cloNIDine HCL 0.1 MG TAB PO SCH ×3 (08:33→21:11)
[2022-09-26] MEDS: METOPROLOL TARTRATE 25 MG TAB PO SCH ×2 (08:33→21:10)
[2022-09-26] MEDS: THIAMINE HCL 500 MG in SODIUM CHLORIDE 0.9% 50 ML IV SCH ×3 (09:23→21:11)
[2022-09-26 09:59] LABS: Hematocrit (blood only) 41.5 % (40.1-51.0); Hemoglobin 13.7 g/dl (14.0-18.0); Mean Corpuscular Hemoglobin 29.3 pg (25.0-34.0); Mean Corpuscular Volume 88.7 fL (80.0-100.0); Mean Platelet Volume 13.1 fL (9.4-12.4); Platelet Count 144 K/uL (130-400); RDW Coefficient of Variation 13.2 % (11.5-14.5); RDW Standard Deviation 42.5 fL (36.4-46.3); Red Blood Count 4.68 M/uL (4.63-6.08); White Blood Count 4.64 K/ul (4.8-10.8)
[2022-09-26 10:13] LABS: BUN Creatinine Ratio 14.8 (10-20); Calcium 9.3 mg/dl (8.5-10.1); Creatinine Clr Calc Pharmacy 96.2 ml/min; Est GFR (African American) 105.8 ml/min; Est GFR (Non-African American) 91.3 ml/min; Potassium 3.8 mmol/L (3.5-5.1)
--- NOTE | 2022-09-26 13:36 | Hospitalist Progress Note ---
Date of Service September 26, 2022 Assessment & Plan (1) Hallucination, visual: Plan: -Patient admits to alcohol use -Was admitted on account of hallucinations -By his own admission, he said he fell off the wagon and started drinking again -Denies any current hallucinations -Patient could be exhibiting signs of early weineckes -CT head did not show any acute pathology -No signs of alcohol withdrawal -Psych eval determines patient cannot leave AMA, he lacks capacity to make his own decisions -Plans for placement for him, his previous place would not take him back due to continued alcohol abuse, and he is a danger to himself and public (2) Cognitive impairment: Plan: Cognitive impairment from alcohol abuse, dementia Patient lacks capacity to make his own decisions his daughter is EVA, who may now double as the surrogate decision maker (3) Alcohol use disorder: Plan: Last drink 3 days prior to presentation per patient. Ethyl alcohol level negative on admission. 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 Not on PPI. Monitor CBC. (6) Hypomagnesemia: Plan: resolved Plan VTE Prophylaxis - Lovenox 40 mg SQ daily Diet - regular Disposition - Plans for placement for him, his previous place would not take him back due to continued alcohol abuse, and he is a danger to himself and public Admission and Anticipated Discharge Date Admission Date: September 23, 2022 Subjective patient seen and examined, denies any more hallucinations, says he wants to go back to his residence, gets confused Review of Systems Review of Systems: All systems reviewed are negative, apart from the ones contained in the history. Physical Exam Physical Exam: The patient is awake, alert and oriented 3, HEENT--PERRL, EOMI, mucous membranes and oropharynx mildly dry Neck--supple. No JVD. No bruits. Thyroid normal, trachea midline, no adenopathy. Heart--normal S1 and S2. No murmurs, rubs or gallops. Lungs--clear bilaterally, no respiratory distress, no accessory muscle use. Abdomen--normal bowel sounds and soft. Mild epigastric and left sided abdominal pain Extremities--no cyanosis or clubbing. No edema. Dermatologic--normal skin turgor, normal color, no abnormal lymph nodes, no rash. Neurologic--cranial nerves II through XII grossly intact. Rheumatologic--normal range of motion. Psychiatric--normal affect. Results & Data Results & Data ([facility]) Vital Signs (Past 12 Hours) Vital Signs Temp Pulse Resp BP Pulse Ox O2 Del Method 09/26/22 07:22 97.5 F L 60 16 149/77 H 95 Room Air PG Care Time/CCT Total # of Minutes Spent Total Time Spent with Patient: Total time spent is greater than 50% in coordination of care (as documented) at patient's floor/unit and/or counseling patient: Coding Level of Care Code 40007 SUB INP/OBS CARE 2/35MIN Diagnoses Hallucination, visual R44.1 Cognitive impairment R41.89 Alcohol use disorder F19.90 Encephalopathy G93.40 PUD (peptic ulcer disease) K27.9 Hypomagnesemia E83.42 Time Spent (min) 35
[2022-09-26] MEDS: ENOXAPARIN INJ 40 MG/0.4 ML SYR SQ SCH (21:10)
[2022-09-27] MEDS: METOPROLOL TARTRATE 25 MG TAB PO SCH ×2 (08:39→21:17)
[2022-09-27] MEDS: lisinopril 10 MG TAB PO SCH (08:40)
[2022-09-27] MEDS: cloNIDine HCL 0.1 MG TAB PO SCH ×3 (10:03→21:17)
[2022-09-27] MEDS: THIAMINE HCL 500 MG in SODIUM CHLORIDE 0.9% 50 ML IV SCH ×3 (10:03→20:53)
[2022-09-27] MEDS: QUEtiapine FUMARATE 25 MG TABLET PO SCH (10:03)
[2022-09-27] MEDS: FOLIC ACID 1 MG TAB PO SCH (10:03)
--- NOTE | 2022-09-27 12:58 | Hospitalist Progress Note ---
Date of Service September 27, 2022 Assessment & Plan (1) Hallucination, visual: Plan: -Patient admits to alcohol use -Was admitted on account of hallucinations -By his own admission, he said he fell off the wagon and started drinking again -Denies any current hallucinations -Patient could be exhibiting signs of early weineckes -CT head did not show any acute pathology -No signs of alcohol withdrawal -Psych eval determines patient cannot leave AMA, he lacks capacity to make his own decisions -Plans for placement for him, his previous place would not take him back due to continued alcohol abuse, and he is a danger to himself and public -He occasionally refuses medications due to cognitive impairment (2) Cognitive impairment: Plan: Cognitive impairment from alcohol abuse, dementia Patient lacks capacity to make his own decisions his daughter is EVA, who may now double as the surrogate decision maker (3) Alcohol use disorder: Plan: Last drink 3 days prior to presentation per patient. Ethyl alcohol level negative on admission. 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 Not on PPI. Monitor CBC. (6) Hypomagnesemia: Plan: resolved Plan VTE Prophylaxis - Lovenox 40 mg SQ daily Diet - regular Disposition - Plans for placement for him, his previous place would not take him back due to continued alcohol abuse, and he is a danger to himself and public Admission and Anticipated Discharge Date Admission Date: September 23, 2022 Subjective patient seen and examined, denies any more hallucinations, says he wants to go back to his residence, gets confused occasionally Review of Systems Review of Systems: All systems reviewed are negative, apart from the ones contained in the history. Physical Exam Physical Exam: The patient is awake, alert confused occasionally HEENT--PERRL, EOMI, mucous membranes and oropharynx mildly dry Neck--supple. No JVD. No bruits. Thyroid normal, trachea midline, no adenopathy. Heart--normal S1 and S2. No murmurs, rubs or gallops. Lungs--clear bilaterally, no respiratory distress, no accessory muscle use. Abdomen--normal bowel sounds and soft. Mild epigastric and left sided abdominal pain Extremities--no cyanosis or clubbing. No edema. Dermatologic--normal skin turgor, normal color, no abnormal lymph nodes, no rash. Neurologic--cranial nerves II through XII grossly intact. Rheumatologic--normal range of motion. Psychiatric--normal affect. Results & Data Results & Data ([facility]) Vital Signs (Past 12 Hours) Vital Signs Temp Pulse Resp BP Pulse Ox O2 Del Method 09/27/22 07:44 97.7 F 57 L 16 163/84 H 97 Room Air PG Care Time/CCT Total # of Minutes Spent Total Time Spent with Patient: Total time spent is greater than 50% in coordination of care (as documented) at patient's floor/unit and/or counseling patient: Coding Level of Care Code 49989 SUB INP/OBS CARE 2/35MIN Diagnoses Hallucination, visual R44.1 Cognitive impairment R41.89 Alcohol use disorder F19.90 Encephalopathy G93.40 PUD (peptic ulcer disease) K27.9 Hypomagnesemia E83.42 Time Spent (min) 35
[2022-09-27] MEDS: ENOXAPARIN INJ 40 MG/0.4 ML SYR SQ SCH (20:53)
[2022-09-28] MEDS: lisinopril 10 MG TAB PO SCH (08:05)
[2022-09-28] MEDS: METOPROLOL TARTRATE 25 MG TAB PO SCH ×2 (08:05→21:08)
[2022-09-28] MEDS: QUEtiapine FUMARATE 25 MG TABLET PO SCH (08:06)
[2022-09-28] MEDS: cloNIDine HCL 0.1 MG TAB PO SCH ×3 (08:06→21:08)
[2022-09-28] MEDS: FOLIC ACID 1 MG TAB PO SCH (08:06)
[2022-09-28] MEDS: THIAMINE HCL 500 MG in SODIUM CHLORIDE 0.9% 50 ML IV SCH (08:07)
--- NOTE | 2022-09-28 12:19 | Hospitalist Progress Note ---
Date of Service September 28, 2022 Assessment & Plan (1) Hallucination, visual: Plan: -Patient admits to alcohol use -Was admitted on account of hallucinations -By his own admission, he said he fell off the wagon and started drinking again -Denies any current hallucinations -Patient could be exhibiting signs of early weineckes -CT head did not show any acute pathology -No signs of alcohol withdrawal -Psych eval determines patient cannot leave AMA, he lacks capacity to make his own decisions -Plans for placement for him, his previous place would not take him back due to continued alcohol abuse, and he is a danger to himself and public -He occasionally refuses medications due to cognitive impairment (2) Cognitive impairment: Plan: Cognitive impairment from alcohol abuse, dementia Patient lacks capacity to make his own decisions his daughter is EVA, who may now double as the surrogate decision maker (3) Alcohol use disorder: Plan: Last drink 3 days prior to presentation per patient. Ethyl alcohol level negative on admission. 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 Not on PPI. Monitor CBC. (6) Hypomagnesemia: Plan: resolved Plan VTE Prophylaxis - Lovenox 40 mg SQ daily Diet - regular Disposition - Plans for placement for him, his previous place would not take him back due to continued alcohol abuse, and he is a danger to himself and public Admission and Anticipated Discharge Date Admission Date: September 23, 2022 Subjective patient seen and examined, confused Review of Systems Review of Systems: All systems reviewed are negative, apart from the ones contained in the history. Physical Exam Physical Exam: The patient is awake, alert confused occasionally HEENT--PERRL, EOMI, mucous membranes and oropharynx mildly dry Neck--supple. No JVD. No bruits. Thyroid normal, trachea midline, no adenopathy. Heart--normal S1 and S2. No murmurs, rubs or gallops. Lungs--clear bilaterally, no respiratory distress, no accessory muscle use. Abdomen--normal bowel sounds and soft. Mild epigastric and left sided abdominal pain Extremities--no cyanosis or clubbing. No edema. Dermatologic--normal skin turgor, normal color, no abnormal lymph nodes, no rash. Neurologic--cranial nerves II through XII grossly intact. Rheumatologic--normal range of motion. Psychiatric--normal affect. Results & Data Results & Data ([facility]) Vital Signs (Past 12 Hours) Vital Signs Temp Pulse Resp BP Pulse Ox O2 Del Method 09/28/22 10:05 66 158/86 H 09/28/22 08:00 97.3 F L 73 18 190/119 H 97 Room Air PG Care Time/CCT Total # of Minutes Spent Total Time Spent with Patient: Total time spent is greater than 50% in coordination of care (as documented) at patient's floor/unit and/or counseling patient: Coding Level of Care Code 30061 SUB INP/OBS CARE 2/35MIN Diagnoses Hallucination, visual R44.1 Cognitive impairment R41.89 Alcohol use disorder F19.90 Encephalopathy G93.40 PUD (peptic ulcer disease) K27.9 Hypomagnesemia E83.42 Time Spent (min) 35
[2022-09-28] MEDS: ENOXAPARIN INJ 40 MG/0.4 ML SYR SQ SCH (21:09)
[2022-09-29] MEDS: METOPROLOL TARTRATE 25 MG TAB PO SCH ×2 (09:14→19:44)
[2022-09-29] MEDS: lisinopril 10 MG TAB PO SCH (09:14)
[2022-09-29] MEDS: cloNIDine HCL 0.1 MG TAB PO SCH ×4 (09:21→20:07)
[2022-09-29] MEDS: FOLIC ACID 1 MG TAB PO SCH (09:21)
[2022-09-29] MEDS: THIAMINE HCL 100 MG TAB PO SCH (09:22)
[2022-09-29] MEDS: QUEtiapine FUMARATE 25 MG TABLET PO SCH (09:22)
--- NOTE | 2022-09-29 12:27 | Hospitalist Progress Note ---
Date of Service September 29, 2022 Assessment & Plan (1) Hallucination, visual: Plan: -Patient admits to alcohol use -Was admitted on account of hallucinations -By his own admission, he said he fell off the wagon and started drinking again -Denies any current hallucinations -Patient could be exhibiting signs of early weineckes -CT head did not show any acute pathology -No signs of alcohol withdrawal -Psych eval determines patient cannot leave AMA, he lacks capacity to make his own decisions -Plans for placement for him, his previous place would not take him back due to continued alcohol abuse, and he is a danger to himself and public -He occasionally refuses medications due to cognitive impairment -Frequently ambulates the hallway (2) Cognitive impairment: Plan: Cognitive impairment from alcohol abuse, dementia Patient lacks capacity to make his own decisions his daughter is EVA, who may now double as the surrogate decision maker (3) Alcohol use disorder: Plan: Last drink 3 days prior to presentation per patient. Ethyl alcohol level negative on admission. 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 Not on PPI. Monitor CBC. (6) Hypertension: Plan: Elevated BP patient refuses his medications I called daughter to let her know (7) Hypomagnesemia: Plan: resolved Plan VTE Prophylaxis - Lovenox 40 mg SQ daily Diet - regular Disposition - Plans for placement for him, his previous place would not take him back due to continued alcohol abuse, and he is a danger to himself and public Admission and Anticipated Discharge Date Admission Date: September 23, 2022 Subjective patient seen and examined, awake and alert, ambulating the hallway, confused Review of Systems Review of Systems: All systems reviewed are negative, apart from the ones contained in the history. Physical Exam Physical Exam: The patient is awake, alert confused occasionally HEENT--PERRL, EOMI, mucous membranes and oropharynx mildly dry Neck--supple. No JVD. No bruits. Thyroid normal, trachea midline, no adenopathy. Heart--normal S1 and S2. No murmurs, rubs or gallops. Lungs--clear bilaterally, no respiratory distress, no accessory muscle use. Abdomen--normal bowel sounds and soft. Mild epigastric and left sided abdominal pain Extremities--no cyanosis or clubbing. No edema. Dermatologic--normal skin turgor, normal color, no abnormal lymph nodes, no rash. Neurologic--cranial nerves II through XII grossly intact. Rheumatologic--normal range of motion. Psychiatric--normal affect. Results & Data Results & Data ([facility]) Vital Signs (Past 12 Hours) Vital Signs Temp Pulse Resp BP Pulse Ox O2 Del Method 09/29/22 08:00 97.5 F L 67 20 178/104 H 97 Room Air PG Care Time/CCT Total # of Minutes Spent Total Time Spent with Patient: Total time spent is greater than 50% in coordination of care (as documented) at patient's floor/unit and/or counseling patient: Coding Level of Care Code 69113 SUB INP/OBS CARE 2/35MIN Diagnoses Hallucination, visual R44.1 Cognitive impairment R41.89 Alcohol use disorder F19.90 Encephalopathy G93.40 PUD (peptic ulcer disease) K27.9 Hypertension I10 Hypomagnesemia E83.42 Time Spent (min) 35
[2022-09-29] MEDS: ENOXAPARIN INJ 40 MG/0.4 ML SYR SQ SCH (19:43)
[2022-09-30] MEDS ORDERED: QUEtiapine FUMARATE 25 MG TABLET PO PRN (08:39)
[2022-09-30] MEDS ORDERED: lisinopril 20 MG TAB PO SCH (09:00)
[2022-09-30] MEDS: METOPROLOL TARTRATE 25 MG TAB PO SCH (09:43)
[2022-09-30] MEDS: THIAMINE HCL 100 MG TAB PO SCH (09:45)
[2022-09-30] MEDS: FOLIC ACID 1 MG TAB PO SCH (09:45)
--- NOTE | 2022-09-30 13:00 | Hospitalist Progress Note ---
Date of Service September 30, 2022 Assessment & Plan (1) Hallucination, visual: Plan: -Patient admits to alcohol use -Was admitted on account of hallucinations -By his own admission, he said he fell off the wagon and started drinking again -Denies any current hallucinations -Patient could be exhibiting signs of early weineckes -CT head did not show any acute pathology -No signs of alcohol withdrawal -Psych eval determines patient cannot leave AMA, he lacks capacity to make his own decisions -Plans for placement for him, his previous place would not take him back due to continued alcohol abuse, and he is a danger to himself and public -Seems [facility] willing to take him -He occasionally refuses medications due to cognitive impairment -Frequently ambulates the hallway (2) Cognitive impairment: Plan: Cognitive impairment from alcohol abuse, dementia Patient lacks capacity to make his own decisions his daughter is EVA, who may now double as the surrogate decision maker (3) Alcohol use disorder: Plan: Last drink 3 days prior to presentation per patient. Ethyl alcohol level negative on admission. 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 Not on PPI. Monitor CBC. (6) Hypertension: Plan: Elevated BP patient refuses his medications apart from Lisinopril, I increased the dose of Lisiniopril patient also agreeable to clonidine patch I called daughter to let her know (7) Hypomagnesemia: Plan: resolved Plan VTE Prophylaxis - Lovenox 40 mg SQ daily Diet - regular Disposition - Plans for placement for him, his previous place would not take him back due to continued alcohol abuse, and he is a danger to himself and public Admission and Anticipated Discharge Date Admission Date: September 23, 2022 Subjective patient seen and examined, awake and alert, ambulating the hallway, confused, seems [facility] back Review of Systems Review of Systems: All systems reviewed are negative, apart from the ones contained in the history. Physical Exam Physical Exam: The patient is awake, alert confused occasionally HEENT--PERRL, EOMI, mucous membranes and oropharynx mildly dry Neck--supple. No JVD. No bruits. Thyroid normal, trachea midline, no adenopathy. Heart--normal S1 and S2. No murmurs, rubs or gallops. Lungs--clear bilaterally, no respiratory distress, no accessory muscle use. Abdomen--normal bowel sounds and soft. Mild epigastric and left sided abdominal pain Extremities--no cyanosis or clubbing. No edema. Dermatologic--normal skin turgor, normal color, no abnormal lymph nodes, no rash. Neurologic--cranial nerves II through XII grossly intact. Rheumatologic--normal range of motion. Psychiatric--normal affect. Results & Data Results & Data ([facility]) Vital Signs (Past 12 Hours) Vital Signs Temp Pulse Resp BP BP Pulse Ox O2 Del Method 09/30/22 07:33 97.7 F 66 16 165/109 H 180/98 H 95 Room Air PG Care Time/CCT Total # of Minutes Spent Total Time Spent with Patient: Total time spent is greater than 50% in coordination of care (as documented) at patient's floor/unit and/or counseling patient: Coding Level of Care Code 79530 SUB INP/OBS CARE 2/35MIN Diagnoses Hallucination, visual R44.1 Cognitive impairment R41.89 Alcohol use disorder F19.90 Encephalopathy G93.40 PUD (peptic ulcer disease) K27.9 Hypertension I10 Hypomagnesemia E83.42 Time Spent (min) 35
--- NOTE | 2022-09-30 13:39 | Discharge Summary ---
Date of Service September 30, 2022 Admission HPI Per Admitting Provider Arvind Sinclair is a 67 year old male who lives at [facility] presents to the ER with altered mental state and visual hallucinations. Patient seeing shapes shifting and things moving that should not be. Reportedly going on for months but much worse recently. Unsteady on feet. Has a long history of alcohol abuse and previous withdrawal admitted from December to February 2022 requiring a Precedex drip and ICU admission. He went back to drinking alcohol and last drink 3 days ago. He drinks a fifth of vodka a day. He has not taking his usual blood pressure medications in the last 2 days. No agitation, tremors, GI upset, reduced appetite, headache, fevers, palpitations, seizures. Principal Diagnosis hallucination, alcohol abuse Discharge Exam The patient is awake, alert confused occasionally HEENT--PERRL, EOMI, mucous membranes and oropharynx mildly dry Neck--supple. No JVD. No bruits. Thyroid normal, trachea midline, no adenopathy. Heart--normal S1 and S2. No murmurs, rubs or gallops. Lungs--clear bilaterally, no respiratory distress, no accessory muscle use. Abdomen--normal bowel sounds and soft. Mild epigastric and left sided abdominal pain Extremities--no cyanosis or clubbing. No edema. Dermatologic--normal skin turgor, normal color, no abnormal lymph nodes, no rash. Neurologic--cranial nerves II through XII grossly intact. Rheumatologic--normal range of motion. Psychiatric--normal affect. Discharge Data Allergies Allergy/AdvReac Type Severity Reaction Status Date / Time bee venom protein (honey bee) AdvReac Severe Anaphylaxis Unverified 03/30/22 08:45 Consultations 09/23/22 11:36 ED Decision to Admit Stat 09/24/22 15:08 Consult Psychiatry Routine Ordered Studies 09/23/22 09:26 CT head/brain wo con Stat Hospital Course (1) Hallucination, visual: -Patient admits to alcohol use -Was admitted on account of hallucinations -By his own admission, he said he fell off the wagon and started drinking again -Denies any current hallucinations -Patient could be exhibiting signs of early weineckes -CT head did not show any acute pathology -No signs of alcohol withdrawal -Psych eval determines patient cannot leave AMA, he lacks capacity to make his own decisions -Plans for placement for him, his previous place would not take him back due to continued alcohol abuse, and he is a danger to himself and public -[facility]ems [facility] willing [facility] him -He occasionally refuses medications due to cognitive impairment -Frequently ambulates the hallway (2) Cognitive impairment: Cognitive impairment from alcohol abuse, dementia Patient lacks capacity to make his own decisions his daughter is EVA, who may now double as the surrogate decision maker (3) Alcohol use disorder: Last drink 3 days prior to presentation per patient. Ethyl alcohol level negative on admission. 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 Not on PPI. Monitor CBC. (6) Hypertension: Elevated BP patient refuses his medications apart from Lisinopril, I increased the dose of Lisiniopril, will also add clonidine PO on discharge patient also agreeable to clonidine patch I called daughter to let her know (7) Hypomagnesemia: resolved Plan VTE Prophylaxis - Lovenox 40 mg SQ daily Diet - regular Disposition - Plans for placement for him, his previous place would not take him back due to continued alcohol abuse, and he is a danger to himself and public Total Time Total Time Spent Total Time Spent (In Minutes): 35 Discharge Plan Discharge Items Patient Disposition: Home - Self-Care Reason For Visit: ALCOHOL HALLUCINATIONS Discharge Diagnosis: alcohol abuse, hallucination Activity: Resume your previous activity Non-emergency contact: Primary Care Provider Call non-emergency contact if: you have any medication questions Follow-up/Referrals: Stanley Hirsch CRNP [Primary Care Provider] - Diet: Regular Addtl Attending Provider Instructions: please make arrangements to follow up with your PCP Pending Studies at Discharge: No Stand-Alone Forms: My [employer], Smoking Cessation Medications and DC Order Prescriptions: New quetiapine 25 mg Tablet 25 mg PO HS 30 Days Qty: 30 0RF lisinopril 20 mg Tablet 20 mg PO QAM Qty: 30 0RF clonidine HCl 0.1 mg tablet 0.1 mg PO TID Qty: 60 0RF Continued metoprolol tartrate 25 mg tablet 12.5 mg PO BID Qty: 180 1RF Discontinued lisinopril 10 mg tablet 10 mg PO QAM Qty: 90 1RF ondansetron HCl 4 mg tablet 4 mg PO Q8H PRN (Reason: nausea and vomiting) Qty: 20 0RF Discharge Orders: Discharge Order (Routine); Ordered 09/30/22 Ordered By: Uriah Bowling Admission Data Admit Date/Time: 09/23/22 12:16 Attending Provider: Uriah Bowling Admit Provider: Ramone Roman Primary Care Provider: Stanley Hirsch Other Providers: Ramone Roman ; Linette Angulo ; Irena Lugo Coding Level of Care Code HOSP INP/OBS DISCH >30 MIN Diagnoses Hallucination, visual R44.1 Cognitive impairment R41.89 Alcohol use disorder F19.90 Encephalopathy G93.40 PUD (peptic ulcer disease) K27.9 Hypertension I10 Hypomagnesemia E83.42 Time Spent (min) 35
[2022-09-30] MEDS ORDERED: CHECK CLONIDINE PATCH PLACEMENT SCH (16:00)
== END 2022-09-30 15:19 | disposition home or self-care (01) | DRG 641 ==
LOC: ED 09:07 → SUATTDRO 12:16 → 2S 12:16 → 3W 09-25 18:35

== ENCOUNTER 2023-06-22 19:02 | Inpatient (IN) ==
--- NOTE | 2023-06-22 19:20 | ED Triage Note ---
Date of Service June 22, 2023 History of Present Illness This patient was briefly evaluated while in triage. An abbreviated physical exam was performed. This patient is a 68-year-old Male who presents to the ED for evaluation of confusion, hallucinations started this afternoon history of the same secondary to ETOH in the past no headache, vomiting Physical Exam GENERAL: NAD CARDIOVASCULAR: RRR RESPIRATORY: CTA ABDOMEN: BS x 4. Nontender to palpation. NEURO: alert, appropriate, no slurred speech, normal gait Initial orders for labs and / or imaging were placed and patient was placed in the waiting area until a bed is available. Please see further documentation for the full ED course.
[2023-06-22 21:12] LABS: Albumin Globulin Ratio 1.3 (0.9-2); Albumin Level 4.7 gm/dl (3.4-5.0); BUN Creatinine Ratio 14.3 (10-20); Bilirubin,Total 0.6 mg/dl (0.2-1.0); Calcium 8.8 mg/dl (8.6-10.3); Creatinine Clr Calc Pharmacy 112.6 ml/min; Est GFR (African American) 111.6 ml/min; Est GFR (Non-African American) 96.3 ml/min; Globulin 3.7 gm/dl (2.5-4.0); Magnesium 1.7 mg/dl (1.7-2.4); Potassium 3.6 mmol/L (3.5-5.1); Total Protein 8.4 gm/dl (6.0-8.3)
[2023-06-22 21:16] LABS: Basophils # (auto) 0.03 K/uL (0.00-0.20); Basophils % (auto) 0.5 %; Eosinophils # (auto) 0.14 K/uL (0.00-0.50); Eosinophils % (auto) 2.3 %; Hemoglobin 14.4 g/dl (14.0-18.0); Immature Granulocytes # (auto) 0.03 K/uL (0.01-0.20); Immature Granulocytes % (auto) 0.5 %; Lymphocytes # (auto) 1.97 K/uL (1.20-3.40); Lymphocytes % (auto) 31.7 %; Mean Corpuscular Hemoglobin 29.9 pg (25.0-34.0); Mean Corpuscular Hgb Conc 33.5 g/dL (32.0-36.0); Mean Corpuscular Volume 89.2 fL (80.0-100.0); Mean Platelet Volume 12.2 fL (9.4-12.4); Monocytes % (auto) 11.3 %; Neutrophils # (auto) 3.34 K/uL (1.40-6.50); Neutrophils % (auto) 53.7 %; Platelet Count 189 K/uL (130-400); RDW Coefficient of Variation 14.4 % (11.5-14.5); RDW Standard Deviation 47.1 fL (36.4-46.3); Red Blood Count 4.82 M/uL (4.70-6.10); White Blood Count 6.21 K/ul (4.8-10.8)
[2023-06-22 21:19] LABS: Troponin I High Sensitivity 2.4 pg/ml (0-20)
[2023-06-22 21:23] LABS: Partial Thromboplastin Ratio 0.9; Partial Thromboplastin Time 26.1 Seconds (21.0-31.0); Prothrombin Time 10.5 Seconds (9.0-12.0)
[2023-06-22] MEDS ORDERED: OPTIRAY 320 500ml IV ONE (21:54)
--- NOTE | 2023-06-22 22:18 | CT Scan Report ---
Exam(s): CT HEAD Without Contrast EXAM: CT Head Without Intravenous Contrast CLINICAL HISTORY: Reason for exam: confusion/hallucinations. TECHNIQUE: Axial computed tomography images of the head/brain without intravenous contrast. CTDI is 38.31 mGy and DLP is 702 mGy-cm. Automated exposure control was utilized for the study. A dose lowering technique was utilized adhering to the principles of ALARA. COMPARISON: No relevant prior studies available. FINDINGS: No acute intracranial hemorrhage. No midline shift or mass effect. The territorial sanchez-white matter differentiation is maintained throughout. Age-related cerebral volume loss. Periventricular and subcortical white matter hypoattenuation, consistent with chronic microangiopathy. The visualized orbits appear grossly unremarkable. The calvarium is intact. The visualized paranasal sinuses and mastoid air cells are grossly clear. IMPRESSION: No acute intracranial hemorrhage, midline shift, or mass effect. Electronically signed by: Andreas Du MD 06/22/23 22:17 PM
[2023-06-22] MEDS ORDERED: MULTI-VITAMIN INFUSION 10 ML, THIAMINE HCL 100 MG, FOLIC ACID 1 MG in SODIUM CHLORIDE 0... IV ONE (22:37)
[2023-06-22] MEDS ORDERED: THIAMINE HCL 500 MG in SODIUM CHLORIDE 0.9% 50 ML IV STA (22:37)
[2023-06-22] MEDS ORDERED: LACTATED RINGER'S 500 ML IV ONE (22:45)
[2023-06-22] MEDS ORDERED: FAMOTIDINE 20MG IV PUSH 20 MG/5 ML SYR IV STA (22:45)
[2023-06-22] MEDS ORDERED: PANTOprazole 40 MG in SYRINGE 0 ML IV ONE (22:45)
[2023-06-22] MEDS ORDERED: METOPROLOL TARTRATE 1 MG/ML VIAL IV STA (22:45)
--- NOTE | 2023-06-22 23:11 | CT Scan Report ---
Exam(s): CTA HEAD With Contrast IV Amt: 99ml EXAM: CT Angiography Head With Intravenous Contrast CLINICAL HISTORY: confusion/hallucinations. TECHNIQUE: Axial computed tomographic angiography images of the head with intravenous contrast. CTDI is 16.61 mGy and DLP is 541.6 mGy-cm. Automated exposure control was utilized for the study. A dose lowering technique was utilized adhering to the principles of ALARA. MIP reconstructed images were created and reviewed. CONTRAST: Patient received 99ml of IV contrast COMPARISON: Noncontrast CT dated 09/23/2022 FINDINGS: Right internal carotid artery: No acute findings. Intracranial segment is patent with no significant stenosis. No aneurysm. Right anterior cerebral artery: Unremarkable. No occlusion or significant stenosis. No aneurysm. Right middle cerebral artery: Unremarkable. No occlusion or significant stenosis. No aneurysm. Right posterior cerebral artery: There is a right posterior communicating artery noted. No occlusion or significant stenosis. No aneurysm. Right vertebral artery: The distal right vertebral artery is small in caliber but is patent. The right vertebral artery does not appear to anastomose with the basilar artery. Left internal carotid artery: No acute findings. Intracranial segment is patent with no significant stenosis. No aneurysm. Left anterior cerebral artery: Unremarkable. No occlusion or significant stenosis. No aneurysm. Left middle cerebral artery: Unremarkable. No occlusion or significant stenosis. No aneurysm. Left posterior cerebral artery: The left posterior cerebral artery demonstrates a origin via the posterior cerebral artery. No occlusion or significant stenosis. No aneurysm. Left vertebral artery: Unremarkable as visualized. Basilar artery: The basilar artery is patent without focal stenosis or occlusion. Brain: Similar parenchymal involutional changes noted. No abnormal enhancement. IMPRESSION: Negative intracranial CTA examination with incidental congenital variant branching pattern noted. Electronically signed by: Stanley Caballero MD 06/22/23 23:10 PM
--- NOTE | 2023-06-22 23:15 | Emergency Department Note ---
History of Present Illness General Chief complaint: Confusion Stated complaint: HALUCINATIONS Time Seen by Provider: 06/22/23 22:35 History of Present Illness 68-year-old alcoholic presents to the ER for hallucinations and not feeling right. Patient states he last drank yesterday. Patient states he is seeing t hings that are not there that are mimicking him. Patient denies fevers, vomiting, diarrhea, drug use. He states he normally drinks beer or whiskey or vodka. Patient states he feels off balance and has epigastric discomfort. He is currently living in his van that is parked in the ER parking lot. He last ate yesterday. He declines wanting rehab. Home Medications Medication Instructions Recorded Confirmed Type epinephrine 0.3 mg/0.3 mL 0.3 mg (0.3 mL) IM Q10M PRN 12/24/22 06/22/23 Rx injection, auto-injector bronchodilation #2 ea amlodipine 2.5 mg tablet 2.5 mg PO DAILY 06/22/23 06/22/23 History metoprolol succinate 50 mg 50 mg PO DAILY 06/22/23 06/22/23 History tablet,extended release 24 hr quetiapine 25 mg tablet 25 mg PO BID 06/22/23 06/22/23 History Allergies Allergy/AdvReac Type Severity Reaction Status Date / Time bee venom protein (honey bee) AdvReac Severe Anaphylaxis Unverified 12/29/22 10:10 Past Med/Surg History Medical History Alcohol dependence (06/08/11) Alcohol use disorder Bee sting allergy Broken tooth Chronic dental pain Cognitive impairment Depression (06/08/11) Hallucination, visual Hepatitis C Hypertension Impacted third molar tooth Marijuana use Surgical History Status post hernia repair Status post knee surgery Family History Father Diabetes Hypertension Mother Breast cancer Denies family history of Ovarian cancer Prostate cancer Myocardial infarction Colorectal cancer Social History Smoking Status: Never smoker Hx Alcohol Use: Yes Alcohol type: beer Hx Substance Use: Yes Last Used Substance: Unknown Last Used Substance Other:: back in high school Preferred Language: [place] Communication Ability: Effective Visual Impairment: No Limitations Hearing 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9 C Temperature Source Temporal Artery Scan Pulse Rate 76 75 73 Pulse Rate from SpO2 Sensor Respiratory Rate 18 Respiratory Effort / Characteristics Non-Labored Spontaneous Respiratory Depth Normal Respiratory Pattern Regular Blood Pressure 208/114 H 174/102 H Blood Pressure Mean 145 Blood Pressure Position Sitting Pulse Oximetry 96 Oxygen Delivery Method Room Air Sepsis Recent Fever Within 48 Hours No Sepsis New/Unexplained Change in Mental Status N/A Sepsis Action Taken by Nursing No Action Required 06/22/23 23:23 Temperature Temperature Source Pulse Rate 70 Pulse Rate from SpO2 Sensor 69 Respiratory Rate 19 Respiratory Effort / Characteristics Respiratory Depth Respiratory Pattern Blood Pressure 174/102 H Blood Pressure Mean 126 Blood Pressure Position Pulse Oximetry 95 Oxygen Delivery Method Sepsis Recent Fever Within 48 Hours Sepsis New/Unexplained Change in Mental Status Sepsis Action Taken by Nursing VITALS: Vitals are noted on the nurse's note and reviewed by myself. Vital signs hypertensive. GENERAL: Pleasant gentleman who appears slightly confused but able to follow commands mild tremors, SKIN: The skin was without rashes, erythema, edema, or bruising. There is no tenting of the skin. Capillary reflex less than 2 seconds. HEAD: Normocephalic atraumatic. EARS: External auditory canals clear, EYES: Pupils equal round and reactive to light and accommodation. Conjunctivae without injection, sclerae without icterus. Extraocular movements intact. Mild nystagmus noted. NOSE: Patent, turbinates without inflammation or discharge. MOUTH: Mucous membranes moist. Pharynx without erythema or exudate. Uvula midline. Airway patent. Tongue does not deviate. NECK: Supple without nuchal rigidity. No lymphadenopathy. No thyromegaly. Cervical spine is nontender. No JVD. HEART: Regular rate and rhythm LUNGS: Clear to auscultation bilaterally without wheezes, rales or rhonchi. No retractions or accessory muscle use. ABDOMEN: Positive bowel sounds x 4. Normal tympanic percussion. Soft, nontender, without masses or organomegaly. Valles sign negative. No guarding or rebound tenderness. No CVA tenderness MUSCULOSKELETAL: No muscle atrophy, erythema, or edema noted. NEURO: Patient was alert and oriented to person place but not time. Normal sensation to light and sharp touch. No focal neurological deficits. Course Administered Medications Discontinued Medications Thiamine HCl 500 mg/ Sodium (Chloride) 55 mls @ 210 mls/hr IV NOW STA Stop: 06/22/23 22:52 Last Admin: 06/22/23 23:27 Dose: 210 mls/hr Documented By: ZEESHAN Pantoprazole Sodium 40 mg/ (Syringe) 10 mls @ 5 mls/min IV NOW ONE Stop: 06/22/23 22:46 Last Admin: 06/22/23 23:27 Dose: 5 mls/min Documented By: ZEESHAN Famotidine (Pepcid 20mg Iv Push) 20 mg in 5 mls @ 2.5 mls/min IV NOW STA Stop: 06/22/23 22:46 Last Admin: 06/22/23 23:27 Dose: 2.5 mls/min Documented By: ZEESHAN Ioversol (Optiray 320 500ml) 99 ml IV ONCE ONE Stop: 06/22/23 21:55 Last Admin: 06/22/23 21:55 Dose: 99 ml Documented By: TRUDY Metoprolol Tartrate (Metoprolol Tartrate 1 Mg/Ml Vial) 5 mg IV NOW STA Stop: 06/22/23 22:46 Last Admin: 06/22/23 23:27 Dose: 5 mg Documented By: ZEESHAN Medical Decision Making Medical Records Attestation: I reviewed the patient's medical records. Home Medications Current Medication List: was personally reviewed by me Laboratory Data Attestation: I reviewed the patient's lab results. 06/22/23 19:53 06/22/23 19:53 Lab Results 06/22/23 06/22/23 06/22/23 Range/Units 19:53 19:53 19:53 WBC 6.21 (4.8-10.8) K/ul RBC 4.82 (4.70-6.10) M/uL Hgb 14.4 (14.0-18.0) g/dl Hct 43.0 (42.0-52.0) % MCV 89.2 (80.0-100.0) fL MCH 29.9 (25.0-34.0) pg MCHC 33.5 (32.0-36.0) g/dL RDW Std Deviation 47.1 H (36.4-46.3) fL RDW Coeff of Dutch 14.4 (11.5-14.5) % Plt Count 189 (130-400) K/uL MPV 12.2 (9.4-12.4) fL Immature Gran % (Auto) 0.5 % Neut % (Auto) 53.7 % Lymph % (Auto) 31.7 % [place] % (Auto) 11.3 % Eos % (Auto) 2.3 % Baso % (Auto) 0.5 % Neut # (Auto) 3.34 (1.40-6.50) K/uL Lymph # (Auto) 1.97 (1.20-3.40) K/uL [place] # (Auto) 0.70 H (0.11-0.59) K/uL Eos # (Auto) 0.14 (0.00-0.50) K/uL Baso # (Auto) 0.03 (0.00-0.20) K/uL Immature Gran # (Auto) 0.03 (0.01-0.20) K/uL PT 10.5 (9.0-12.0) Seconds INR 1.0 (0.9-1.1) APTT 26.1 (21.0-31.0) Seconds PTT Ratio 0.9 Sodium 140 (136-145) mmol/L Potassium 3.6 (3.5-5.1) mmol/L Chloride 105 (98-107) mmol/L Carbon Dioxide 27 (21-32) mmol/L Anion Gap 8 (3-11) BUN 10 (6-23) mg/dl Creatinine 0.70 (0.6-1.4) mg/dl Est Cr Clr Drug Dosing 112.6 ml/min Est GFR ( Amer) 111.6 ml/min Est GFR (Non-Af Amer) 96.3 ml/min BUN/Creatinine Ratio 14.3 (10-20) Glucose 86 (70-99(Fasting)) mg/dl Calcium 8.8 (8.6-10.3) mg/dl Magnesium 1.7 (1.7-2.4) mg/dl Total Bilirubin 0.6 (0.2-1.0) mg/dl AST 58 H (13-39) U/L ALT 67 H (7-52) U/L Alkaline Phosphatase 79 (34-104) U/L Ammonia Total Creatine Kinase 58 (30-223) U/L Troponin I High Sens 2.4 (0-20) pg/ml Total Protein 8.4 H (6.0-8.3) gm/dl Albumin 4.7 (3.4-5.0) gm/dl Globulin 3.7 (2.5-4.0) gm/dl Albumin/Globulin Ratio 1.3 (0.9-2) Ethyl Alcohol mg/dL (<10.0) mg/dl 06/22/23 06/22/23 06/22/23 Range/Units 19:53 19:53 23:16 WBC (4.8-10.8) K/ul RBC (4.70-6.10) M/uL Hgb (14.0-18.0) g/dl Hct (42.0-52.0) % MCV (80.0-100.0) fL MCH (25.0-34.0) pg MCHC (32.0-36.0) g/dL RDW Std Deviation (36.4-46.3) fL RDW Coeff of Dutch (11.5-14.5) % Plt Count (130-400) K/uL MPV (9.4-12.4) fL Immature Gran % (Auto) % Neut % (Auto) % Lymph % (Auto) % [place] % (Auto) % Eos % (Auto) % Baso % (Auto) % Neut # (Auto) (1.40-6.50) K/uL Lymph # (Auto) (1.20-3.40) K/uL [place] # (Auto) (0.11-0.59) K/uL Eos # (Auto) (0.00-0.50) K/uL Baso # (Auto) (0.00-0.20) K/uL Immature Gran # (Auto) (0.01-0.20) K/uL PT (9.0-12.0) Seconds INR (0.9-1.1) APTT (21.0-31.0) Seconds PTT Ratio Sodium (136-145) mmol/L Potassium (3.5-5.1) mmol/L Chloride (98-107) mmol/L Carbon Dioxide (21-32) mmol/L Anion Gap (3-11) BUN (6-23) mg/dl Creatinine (0.6-1.4) mg/dl Est Cr Clr Drug Dosing ml/min Est GFR ( Amer) ml/min Est GFR (Non-Af Amer) ml/min BUN/Creatinine Ratio (10-20) Glucose (70-99(Fasting)) mg/dl Calcium (8.6-10.3) mg/dl Magnesium (1.7-2.4) mg/dl Total Bilirubin (0.2-1.0) mg/dl AST (13-39) U/L ALT (7-52) U/L Alkaline Phosphatase (34-104) U/L Ammonia TNP 23.0 Total Creatine Kinase (30-223) U/L Troponin I High Sens (0-20) pg/ml Total Protein (6.0-8.3) gm/dl Albumin (3.4-5.0) gm/dl Globulin (2.5-4.0) gm/dl Albumin/Globulin Ratio (0.9-2) Ethyl Alcohol mg/dL 29.9 H (<10.0) mg/dl Imaging Data Attestation: I personally reviewed and interpreted this imaging study as follows: Radiologist's Impression: Head CT 06/22/23 19:20 Exam(s): CT HEAD Without Contrast EXAM: CT Head Without Intravenous Contrast CLINICAL HISTORY: Reason for exam: confusion/hallucinations. TECHNIQUE: Axial computed tomography images of the head/brain without intravenous contrast. CTDI is 38.31 mGy and DLP is 702 mGy-cm. Automated exposure control was utilized for the study. A dose lowering technique was utilized adhering to the principles of ALARA. COMPARISON: No relevant prior studies available. FINDINGS: No acute intracranial hemorrhage. No midline shift or mass effect. The territorial sanchez-white matter differentiation is maintained throughout. Age-related cerebral volume loss. Periventricular and subcortical white matter hypoattenuation, consistent with chronic microangiopathy. The visualized orbits appear grossly unremarkable. The calvarium is intact. The visualized paranasal sinuses and mastoid air cells are grossly clear. IMPRESSION: No acute intracranial hemorrhage, midline shift, or mass effect. Electronically signed by: Andreas Du MD 06/22/23 22:17 PM Head CTA 06/22/23 19:20 Exam(s): CTA HEAD With Contrast IV Amt: 99ml EXAM: CT Angiography Head With Intravenous Contrast CLINICAL HISTORY: confusion/hallucinations. TECHNIQUE: Axial computed tomographic angiography images of the head with intravenous contrast. CTDI is 16.61 mGy and DLP is 541.6 mGy-cm. Automated exposure control was utilized for the study. A dose lowering technique was utilized adhering to the principles of ALARA. MIP reconstructed images were created and reviewed. CONTRAST: Patient received 99ml of IV contrast COMPARISON: Noncontrast CT dated 09/23/2022 FINDINGS: Right internal carotid artery: No acute findings. Intracranial segment is patent with no significant stenosis. No aneurysm. Right anterior cerebral artery: Unremarkable. No occlusion or significant stenosis. No aneurysm. Right middle cerebral artery: Unremarkable. No occlusion or significant stenosis. No aneurysm. Right posterior cerebral artery: There is a right posterior communicating artery noted. No occlusion or significant stenosis. No aneurysm. Right vertebral artery: The distal right vertebral artery is small in caliber but is patent. The right vertebral artery does not appear to anastomose with the basilar artery. Left internal carotid artery: No acute findings. Intracranial segment is patent with no significant stenosis. No aneurysm. Left anterior cerebral artery: Unremarkable. No occlusion or significant stenosis. No aneurysm. Left middle cerebral artery: Unremarkable. No occlusion or significant stenosis. No aneurysm. Left posterior cerebral artery: The left posterior cerebral artery demonstrates a origin via the posterior cerebral artery. No occlusion or significant stenosis. No aneurysm. Left vertebral artery: Unremarkable as visualized. Basilar artery: The basilar artery is patent without focal stenosis or occlusion. Brain: Similar parenchymal involutional changes noted. No abnormal enhancement. IMPRESSION: Negative intracranial CTA examination with incidental congenital variant branching pattern noted. Electronically signed by: Stanley Caballero MD 06/22/23 23:10 PM Neck CTA 06/22/23 19:20 Exam(s): CTA NECK With Contrast IV Amt: 99ml EXAM: CT Neck With Intravenous Contrast CLINICAL HISTORY: Confusion/hallucinations. TECHNIQUE: Routine carotid CT protocol was performed with intravenous contrast. NASCET criteria using the distal ICAs for comparison were used for evaluation of stenoses. CTDI is 13.52 mGy and DLP is 541.6 mGy-cm. Automated exposure control was utilized for the study. A dose lowering technique was utilized adhering to the principles of ALARA. CONTRAST: Patient received 99ml of IV contrast COMPARISON: None. FINDINGS: VASCULATURE: Right common carotid artery: Unremarkable. No occlusion or significant stenosis. No dissection. Right internal carotid artery: Unremarkable. Extracranial segment is patent with no occlusion or significant stenosis. No dissection. Right external carotid artery: Unremarkable. No occlusion. Right vertebral artery: The right vertebral artery is small in caliber but is patent without focal stenosis. No dissection. Left common carotid artery: Unremarkable. No occlusion or significant stenosis. No dissection. Left internal carotid artery: Unremarkable. Extracranial segment is patent with no occlusion or significant stenosis. No dissection. Left external carotid artery: Unremarkable. No occlusion. Left vertebral artery: Unremarkable. No occlusion or significant stenosis. No dissection. Brachiocephalic and subclavian arteries: The proximal great vessels demonstrate a normal branching pattern without ostial stenosis. Aorta: The aortic arch is patent without dissection or aneurysm. NECK: Bones/joints: Unremarkable. Soft tissues: Unremarkable. Lung apices: Clear. CAROTID STENOSIS REFERENCE USING NASCET CRITERIA: % ICA stenosis = (1 - narrowest ICA diameter/diameter of distal cervical ICA) x 100. Mild - <50% stenosis. Moderate - 50-69% stenosis. Severe - 70-94% stenosis. Near occlusion - 95-99% stenosis. Occluded - 100% stenosis. IMPRESSION: Negative cervical CTA examination. Electronically signed by: Stanley Caballero MD 06/22/23 23:15 PM [facility] Narrative Prior records/ancillary studies reviewed and summarized above. Nursing notes reviewed. Additional history obtained from nursing. The patient's history was concerning for altered mental status. Differential diagnosis: Etiologies such as encephalopathy, Wernicke's, alcoholism, metabolic, infection, hypoglycemia, electrolyte abnormalities, cardiac sources, intracerebral event, toxicologic, neurologic, as well as others were entertained. Physical examination: As above. ER treatment provided: IV Lock Normal saline hydration at LR, banana bag and thiamine were ordered Protonix and Pepcid were ordered. Lopressor was ordered as patient has not been able to take his metoprolol outpatient An order was placed for continuous cardiac monitoring. The monitor shows a rate of 60-100 with a sinus rhythm per my interpretation. Seizure pads were implemented On reassessment the patients mental status improved. Diagnostics interpretation by me: ECG: Ordered for AMS EKG: Poor baseline, normal sinus, normal intervals, no acute ST-T wave changes. Impression normal sinus rhythm independently interpreted by myself I think arrhythmia is unlikely. EKG shows normal sinus rhythm with no interval abnormalities such as QT prolongation or WPW. There are no findings to suggest Brugada syndrome. Cardiac monitoring in the emergency department reveals no tachycardic or bradycardic dysrhythmia. Hypertrophic cardiomyopathy was considered but there are no clear historical elements pointing toward this. EKG is not suggestive. The QRS voltage is not extremely large and there are no suggestive Q waves. The labs Independently Interpreted by myself revealed no worrisome leukocyt osis, slightly elevated alcohol Normal magnesium Mildly elevated LFTs, normal coags Imaging studies: Head CT negative for intracranial bleed per my independent interpretation Chest x-ray with no acute consolidation, pneumothorax or free air per my independent interpretation Head and neck CTAs were reviewed and read by radiology as above. Given the above diagnostic work-up and treatment, this episode appears to be consistent with altered mental status most likely from alcoholism that could be related to Wernicke's encephalopathy. Further treatment will be required. Patient started on thiamine and a banana bag. He is medicated as above. Labs and diagnostics were independently interpreted by myself. Medicine was consulted and case discussed. He will be admitted to the medical service. Consultation: A consultation was placed with the hospitalist. The case was discussed and [facility] were reviewed. The patient was evaluated in the ER for further treatment. The chart was completed utilizing [employer] Speech voice recognition software. Grammatical errors, random word insertions, pronoun errors, and incomplete sentences are an occassional consequence of this system due to software limitations, ambient noise, and hardware issues. Any formal questions or concerns about the content, text, or information contained within the body of this dictation should be directly addressed to the physician surgeon assistant for clarification. Impression & Plan Alcohol-induced hallucinations, Acute alcoholism Discharge Plan Visit Data Chief Complaint: Confusion Stated Complaint: HALUCINATIONS ED Provider: Mya Frank ED Midlevel Provider: Ronda Roman Discharge Problem: Alcohol-induced hallucinations, Acute alcoholism Patient Disposition: Admitted As Inpatient Condition: Fair Forms Stand Alone Forms: My [facility] Prescriptions Prescriptions: No Action epinephrine 0.3 mg/0.3 mL auto-injector 0.3 mg IM Q10M PRN (Reason: bronchodilation) Qty: 2 2RF Rx Instructions: until response quetiapine 25 mg tablet 25 mg PO BID metoprolol succinate 50 mg tablet extended release 24 hr 50 mg PO DAILY amlodipine 2.5 mg tablet 2.5 mg PO DAILY Referrals Referrals: Stanley Hirsch CRNP [Primary Care Provider] -
--- NOTE | 2023-06-22 23:55 | History & Physical Report ---
Date of Service June 22, 2023 Assessment & Plan (1) Alcohol-induced hallucinations: 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: (3) Cognitive impairment: (4) Learning disabilities: (5) Encephalopathy: (6) Hypertension: Plan Chronic alcoholism with psychosis and hallucinations- Admit to monitored bed, MedSur with telemetry AWSS protocol with IV Ativan Thiamine 100 mg IV daily Folic acid 1 mg IV daily NSS + KCl 20 mEq at 80 mils per hour Zofran 4 mg IV every 6 hours as needed Pantoprazole 40 mg IV daily Zyprexa 5 mg IM every 6 hours as needed agitation Continue Seroquel 25 mg p.o. twice daily Hypertension- Continue metoprolol succinate 50 mg daily and amlodipine 2.5 mg daily Lopressor 5 mg IV every 4 hours as needed for systolic blood pressure greater than 160 and/or heart rate greater than 110 caregiver services home- Patient presently is living out of his van History of Present Illness Chief Complaint: The patient presents to the emergency department due to concerns regarding hallucinations and feeling somewhat disoriented and tired. Primary Care Provider: NUBIA Greene The patient is a 68-year-old male with a past medical history including hypertension, agitation, alcoholism and obesity who presents to the emergency department with concerns regarding hallucinations, disorientation and fatigue. He reports that he usually drinks a sixpack a day, his last alcohol intake was 2 days ago. He reports that he presently lives out of his van. Significant laboratories: AST 58, ALT 67, alcohol level 29.9 Imaging studies: CT head, CTA head and neck, and chest x-ray all negative. From the ED the patient received the following: Banana bag, thiamine 5 mg IV, Lopressor 5 mg IV, LR 500 mL bolus, pantoprazole 40 mg IV and famotidine 20 mg IV Allergies Allergy/AdvReac Type Severity Reaction Status Date / Time bee venom protein (honey bee) AdvReac Severe Anaphylaxis Unverified 12/29/22 10:10 Home Medications Medication Instructions Recorded Confirmed Type epinephrine 0.3 mg/0.3 mL 0.3 mg (0.3 mL) IM Q10M PRN 12/24/22 06/22/23 Rx injection, auto-injector bronchodilation #2 ea amlodipine 2.5 mg tablet 2.5 mg PO DAILY 06/22/23 06/22/23 History metoprolol succinate 50 mg 50 mg PO DAILY 06/22/23 06/22/23 History tablet,extended release 24 hr quetiapine 25 mg tablet 25 mg PO BID 06/22/23 06/22/23 History Past Med/Surg History Medical History Alcohol dependence (06/08/11) Alcohol use disorder Bee sting allergy Broken tooth Chronic dental pain Cognitive impairment Depression (06/08/11) Hallucination, visual Hepatitis C Hypertension Impacted third molar tooth Marijuana use Surgical History Status post hernia repair Status post knee surgery Family History Father Diabetes Hypertension Mother Breast cancer Denies family history of Ovarian cancer Prostate cancer Myocardial infarction Colorectal cancer Social History Smoking Status: Never smoker Hx Alcohol Use: Yes Alcohol type: beer Hx Substance Use: Yes Last Used Substance: Unknown Last Used Substance Other:: back in high school Preferred Language: Polish Communication Ability: Effective Visual Impairment: No Limitations Hearing Ability: Normal Rn Lpn Lvn Required: No marital status: Single Current Living Situation: Boarding Home and Other Current Living Situation Comment: [facility] current occupational status: retired Feels Safe at Home: Yes Childhood Exposure to Second-Hand Smoke: No Dental Care, Regularly: Yes Physical Activity Frequency: Does not Exercise Seatbelt Use: always Assistive Devices: Cane and Glasses Review of Systems Review of Systems: The patient denies chest pain, palpitations, shortness of breath, dyspnea on exertion, cough, lower extremity swelling, sore throat, fevers, chills, sweats, nausea, vomiting, diarrhea , constipation, abdominal pain, pelvic pain, blood in urine or stool, dysuria, urinary frequency or urgency, lightheadedness, dizziness, headache, loss of consciousness, rash, abnormal bruising or bleeding, imbalance, focal or generalized weakness, numbness or tingling in arms or legs, back or neck pain, or night sweats. The review of systems is otherwise negative other than for that already noted above, and at least 10 systems have been reviewed. Physical Exam Physical Exam: The patient is awake, alert and oriented 3, well developed and well nourished, normocephalic and atraumatic, lying in bed and in no acute distress. HEENT--PERRL, EOMI, mucous membranes and oropharynx dry. Neck--supple. No JVD. No bruits. Thyroid normal, trachea midline, no adenopathy. Heart--normal S1 and S2. No murmurs, rubs or gallops. Lungs--clear bilaterally, no respiratory distress, no accessory muscle use. Abdomen--normal bowel sounds and soft. Nontender. Nondistended. Mildly obese Extremities--no cyanosis or clubbing. No edema. Dermatologic--normal skin turgor, normal color, no abnormal lymph nodes, no rash. Neurologic--cranial nerves II through XII grossly intact. Rheumatologic--normal range of motion. Psychiatric--normal affect. Results & Data Results & Data Vital Signs (Past 12 Hours) Vital Signs Temp Pulse Resp BP Pulse Ox O2 Del Method 06/22/23 23:23 70 19 174/102 H 95 06/22/23 23:27 73 174/102 H 06/22/23 22:42 75 06/22/23 19:19 36.9 C 76 18 208/114 H 96 Room Air Laboratory Results Laboratory Results WBC 6.21 K/ul (4.8-10.8) 06/22/23 19:53 RBC 4.82 M/uL (4.70-6.10) 06/22/23 19:53 Hgb 14.4 g/dl (14.0-18.0) 06/22/23 19:53 Hct 43.0 % (42.0-52.0) 06/22/23 19:53 MCV 89.2 fL (80.0-100.0) 06/22/23 19:53 MCH 29.9 pg (25.0-34.0) 06/22/23 19:53 MCHC 33.5 g/dL (32.0-36.0) 06/22/23 19:53 RDW Std Deviation 47.1 fL (36.4-46.3) H 06/22/23 19:53 RDW Coeff of Dutch 14.4 % (11.5-14.5) 06/22/23 19:53 Plt Count 189 K/uL (130-400) 06/22/23 19:53 MPV 12.2 fL (9.4-12.4) 06/22/23 19:53 Immature Gran % (Auto) 0.5 % 06/22/23 19:53 Neut % (Auto) 53.7 % 06/22/23 19:53 Lymph % (Auto) 31.7 % 06/22/23 19:53 Nolan % (Auto) 11.3 % 06/22/23 19:53 Eos % (Auto) 2.3 % 06/22/23 19:53 Baso % (Auto) 0.5 % 06/22/23 19:53 Neut # (Auto) 3.34 K/uL (1.40-6.50) 06/22/23 19:53 Lymph # (Auto) 1.97 K/uL (1.20-3.40) 06/22/23 19:53 Nolan # (Auto) 0.70 K/uL (0.11-0.59) H 06/22/23 19:53 Eos # (Auto) 0.14 K/uL (0.00-0.50) 06/22/23 19:53 Baso # (Auto) 0.03 K/uL (0.00-0.20) 06/22/23 19:53 Immature Gran # (Auto) 0.03 K/uL (0.01-0.20) 06/22/23 19:53 PT 10.5 Seconds (9.0-12.0) 06/22/23 19:53 INR 1.0 (0.9-1.1) 06/22/23 19:53 APTT 26.1 Seconds (21.0-31.0) 06/22/23 19:53 PTT Ratio 0.9 06/22/23 19:53 Sodium 140 mmol/L (136-145) 06/22/23 19:53 Potassium 3.6 mmol/L (3.5-5.1) 06/22/23 19:53 Chloride 105 mmol/L (98-107) 06/22/23 19:53 Carbon Dioxide 27 mmol/L (21-32) 06/22/23 19:53 Anion Gap 8 (3-11) 06/22/23 19:53 BUN 10 mg/dl (6-23) 06/22/23 19:53 Creatinine 0.70 mg/dl (0.6-1.4) 06/22/23 19:53 Est Cr Clr Drug Dosing 112.6 ml/min 06/22/23 19:53 Est GFR ( Amer) 111.6 ml/min 06/22/23 19:53 Est GFR (Non-Af Amer) 96.3 ml/min 06/22/23 19:53 BUN/Creatinine Ratio 14.3 (10-20) 06/22/23 19:53 Glucose 86 mg/dl (70-99(Fasting)) 06/22/23 19:53 Calcium 8.8 mg/dl (8.6-10.3) 06/22/23 19:53 Magnesium 1.7 mg/dl (1.7-2.4) 06/22/23 19:53 Total Bilirubin 0.6 mg/dl (0.2-1.0) 06/22/23 19:53 AST 58 U/L (13-39) H 06/22/23 19:53 ALT 67 U/L (7-52) H 06/22/23 19:53 Alkaline Phosphatase 79 U/L (34-104) 06/22/23 19:53 Ammonia 23.0 umol/L (18-72) 06/22/23 23:16 Total Creatine Kinase 58 U/L (30-223) 06/22/23 19:53 Troponin I High Sens 2.4 pg/ml (0-20) 06/22/23 19:53 Total Protein 8.4 gm/dl (6.0-8.3) H 06/22/23 19:53 Albumin 4.7 gm/dl (3.4-5.0) 06/22/23 19:53 Globulin 3.7 gm/dl (2.5-4.0) 06/22/23 19:53 Albumin/Globulin Ratio 1.3 (0.9-2) 06/22/23 19:53 Ethyl Alcohol mg/dL 29.9 mg/dl (<10.0) H 06/22/23 19:[address] 06/22/23 19:20 Exam(s): CT HEAD Without Contrast EXAM: CT Head Without Intravenous Contrast CLINICAL HISTORY: Reason for exam: confusion/hallucinations. TECHNIQUE: Axial computed tomography images of the head/brain without intravenous contrast. CTDI is 38.31 mGy and DLP is 702 mGy-cm. Automated exposure control was utilized for the study. A dose lowering technique was utilized adhering to the principles of ALARA. COMPARISON: No relevant prior studies available. FINDINGS: No acute intracranial hemorrhage. No midline shift or mass effect. The territorial sanchez-white matter differentiation is maintained throughout. Age-related cerebral volume loss. Periventricular and subcortical white matter hypoattenuation, consistent with chronic microangiopathy. The visualized orbits appear grossly unremarkable. The calvarium is intact. The visualized paranasal sinuses and mastoid air cells are grossly clear. IMPRESSION: No acute intracranial hemorrhage, midline shift, or mass effect. Electronically signed by: Andreas Du MD 06/22/23 22:17 PM Head CTA 06/22/23 19:20 Exam(s): CTA HEAD With Contrast IV Amt: 99ml EXAM: CT Angiography Head With Intravenous Contrast CLINICAL HISTORY: confusion/hallucinations. TECHNIQUE: Axial computed tomographic angiography images of the head with intravenous contrast. CTDI is 16.61 mGy and DLP is 541.6 mGy-cm. Automated exposure control was utilized for the study. A dose lowering technique was utilized adhering to the principles of ALARA. MIP reconstructed images were created and reviewed. CONTRAST: Patient received 99ml of IV contrast COMPARISON: Noncontrast CT dated 09/23/2022 FINDINGS: Right internal carotid artery: No acute findings. Intracranial segment is patent with no significant stenosis. No aneurysm. Right anterior cerebral artery: Unremarkable. No occlusion or significant stenosis. No aneurysm. Right middle cerebral artery: Unremarkable. No occlusion or significant stenosis. No aneurysm. Right posterior cerebral artery: There is a right posterior communicating artery noted. No occlusion or significant stenosis. No aneurysm. Right vertebral artery: The distal right vertebral artery is small in caliber but is patent. The right vertebral artery does not appear to anastomose with the basilar artery. Left internal carotid artery: No acute findings. Intracranial segment is patent with no significant stenosis. No aneurysm. Left anterior cerebral artery: Unremarkable. No occlusion or significant stenosis. No aneurysm. Left middle cerebral artery: Unremarkable. No occlusion or significant stenosis. No aneurysm. Left posterior cerebral artery: The left posterior cerebral artery demonstrates a origin via the posterior cerebral artery. No occlusion or significant stenosis. No aneurysm. Left vertebral artery: Unremarkable as visualized. Basilar artery: The basilar artery is patent without focal stenosis or occlusion. Brain: Similar parenchymal involutional changes noted. No abnormal enhancement. IMPRESSION: Negative intracranial CTA examination with incidental congenital variant branching pattern noted. Electronically signed by: Stanley Caballero MD 06/22/23 23:10 PM Neck CTA 06/22/23 19:20 Exam(s): CTA NECK With Contrast IV Amt: 99ml EXAM: CT Neck With Intravenous Contrast CLINICAL HISTORY: Confusion/hallucinations. TECHNIQUE: Routine carotid CT protocol was performed with intravenous contrast. NASCET criteria using the distal ICAs for comparison were used for evaluation of stenoses. CTDI is 13.52 mGy and DLP is 541.6 mGy-cm. Automated exposure control was utilized for the study. A dose lowering technique was utilized adhering to the principles of ALARA. CONTRAST: Patient received 99ml of IV contrast COMPARISON: None. FINDINGS: VASCULATURE: Right common carotid artery: Unremarkable. No occlusion or significant stenosis. No dissection. Right internal carotid artery: Unremarkable. Extracranial segment is patent with no occlusion or significant stenosis. No dissection. Right external carotid artery: Unremarkable. No occlusion. Right vertebral artery: The right vertebral artery is small in caliber but is patent without focal stenosis. No dissection. Left common carotid artery: Unremarkable. No occlusion or significant stenosis. No dissection. Left internal carotid artery: Unremarkable. Extracranial segment is patent with no occlusion or significant stenosis. No dissection. Left external carotid artery: Unremarkable. No occlusion. Left vertebral artery: Unremarkable. No occlusion or significant stenosis. No dissection. Brachiocephalic and subclavian arteries: The proximal great vessels demonstrate a normal branching pattern without ostial stenosis. Aorta: The aortic arch is patent without dissection or aneurysm. NECK: Bones/joints: Unremarkable. Soft tissues: Unremarkable. Lung apices: Clear. CAROTID STENOSIS REFERENCE USING NASCET CRITERIA: % ICA stenosis = (1 - narrowest ICA diameter/diameter of distal cervical ICA) x 100. Mild - <50% stenosis. Moderate - 50-69% stenosis. Severe - 70-94% stenosis. Near occlusion - 95-99% stenosis. Occluded - 100% stenosis. IMPRESSION: Negative cervical CTA examination. Electronically signed by: Stanley Caballero MD 06/22/23 23:15 PM Code Status & VTE Plan Code Status Full code VTE Prophylaxis Plan VTE Prophylaxis will be ordered: Yes PG Care Time/CCT Total # of Minutes Spent Total Time Spent with Patient: Total time spent is greater than 50% in coordination of care (as documented) at patient's floor/unit and/or counseling patient: Coding Level of Care Code 56385 INT INP/OBS CARE MIN Diagnoses Alcohol-induced hallucinations F10.951 Chronic alcoholism with psychosis with hallucinations F10.251 Cognitive impairment R41.89 Learning disabilities F81.9 Encephalopathy G93.40 Hypertension I10
[2023-06-23 00:01] LABS: Thyroid Stimulating Hormone 6.257 uIu/ml (0.300-4.500)
[2023-06-23 00:34] LABS: Appearance Urine Clear (Clear); Bilirubin Urine Negative (Negative); Blood Urine Negative (Negative); Color Urine Yellow; Glucose Urine UA Negative (Negative); Ketones Urine Negative (Negative); Leukocyte Esterase Urine Negative (Negative); Nitrite Urine Negative (Negative); Protein Urine Negative (Negative); Specific Gravity Urine > 1.045 (1.000-1.030); Urobilinogen Urine Negative (Negative)
[2023-06-23 00:37] LABS: T4 Free Thyroxine 0.71 ng/dl (0.61-1.60)
--- NOTE | 2023-06-23 00:39 | Emergency Department Note ---
ED Visit Note I was consulted by the Advanced Practice Provider. I saw the patient personally and performed a substantive portion of the visit. This includes aspects of the HPI, MDM, diagnostic interpretations, and disposition/plan. .
[2023-06-23 00:56] LABS: Amphetamines+Metham, Urine Neg (Neg); Barbiturates, Urine Neg (Neg); Benzodiazepine, Urine Neg (Neg); Cocaine, Urine Neg (Neg); MDMA (Ecstacy), Urine Neg (Neg); Methadone, Urine Neg (Neg); Opiate, Urine Neg (Neg); Phencyclidine, Urine Neg (Neg)
[2023-06-23] MEDS ORDERED: ACETAMINOPHEN 325 MG TAB PO PRN (02:39)
[2023-06-23] MEDS ORDERED: ONDANSETRON INJ 2 MG/ML 2 ML VIAL IV PRN (02:39)
[2023-06-23] MEDS ORDERED: Ativan IV Alcohol Withdrawal--Active Protocol IV PRN (02:39)
[2023-06-23] MEDS ORDERED: LORazepam 2 MG/1 ML VIAL IV PRN (02:39)
[2023-06-23] MEDS: QUEtiapine FUMARATE 25 MG TABLET PO SCH ×3 (03:29→20:44)
[2023-06-23] MEDS: NSS + 20MEQ KCL 20 MEQ/1,000 ML BAG IV SCH ×2 (03:31→14:16)
--- NOTE | 2023-06-23 07:03 | XRay Report ---
XR chest 1V portable HISTORY: Altered mental status. COMPARISON: Chest 09/23/2022. FINDINGS: No pneumothorax. No pleural effusions. No focal lung consolidations to suggest a pneumonia. No evidence for pulmonary edema. The cardiac silhouette remains top normal in size. There are old, h ealed right-sided rib fractures. Chronic changes again noted within the left humeral head. There is a mildly tortuous thoracic aorta. IMPRESSION: No significant change compared to the prior study. No acute process. ACT 112: Negative or not required by law. Electronically signed by: Jamie Montez M.D. 06/23/2023 7:02 AM
[2023-06-23 07:45] LABS: Basophils # (auto) 0.02 K/uL (0.00-0.20); Basophils % (auto) 0.4 %; Eosinophils # (auto) 0.12 K/uL (0.00-0.50); Eosinophils % (auto) 2.3 %; Hematocrit (blood only) 37.2 % (42.0-52.0); Hemoglobin 12.3 g/dl (14.0-18.0); Immature Granulocytes # (auto) 0.02 K/uL (0.01-0.20); Immature Granulocytes % (auto) 0.4 %; Lymphocytes # (auto) 1.95 K/uL (1.20-3.40); Lymphocytes % (auto) 37.4 %; Mean Corpuscular Hemoglobin 29.4 pg (25.0-34.0); Mean Corpuscular Hgb Conc 33.1 g/dL (32.0-36.0); Mean Corpuscular Volume 88.8 fL (80.0-100.0); Mean Platelet Volume 12.2 fL (9.4-12.4); Monocytes # (auto) 0.66 K/uL (0.11-0.59); Monocytes % (auto) 12.7 %; Neutrophils # (auto) 2.44 K/uL (1.40-6.50); Neutrophils % (auto) 46.8 %; Platelet Count 149 K/uL (130-400); RDW Coefficient of Variation 14.3 % (11.5-14.5); RDW Standard Deviation 46.4 fL (36.4-46.3); Red Blood Count 4.19 M/uL (4.70-6.10); White Blood Count 5.21 K/ul (4.8-10.8)
[2023-06-23] MEDS: ENOXAPARIN INJ 40 MG/0.4 ML SYR SQ SCH (07:58)
[2023-06-23] MEDS: FOLIC ACID 1 MG in SYRINGE 9.8 ML IV SCH (07:58)
[2023-06-23] MEDS: METOPROLOL SUCC 50MG EXT REL TAB PO SCH (07:58)
[2023-06-23 08:06] LABS: Albumin Globulin Ratio 1.3 (0.9-2); Albumin Level 3.7 gm/dl (3.4-5.0); BUN Creatinine Ratio 14.5 (10-20); Bilirubin,Total 0.7 mg/dl (0.2-1.0); Calcium 8.3 mg/dl (8.6-10.3); Est GFR (African American) 117.3 ml/min; Est GFR (Non-African American) 101.2 ml/min; Globulin 2.8 gm/dl (2.5-4.0); Magnesium 1.6 mg/dl (1.7-2.4); Potassium 3.5 mmol/L (3.5-5.1); Total Protein 6.5 gm/dl (6.0-8.3)
[2023-06-23] MEDS ORDERED: THIAMINE HCL 100 MG in SYRINGE 9 ML IV SCH (09:00)
[2023-06-23] MEDS ORDERED: amLODIPine BESYLATE 5 MG TAB PO SCH (09:00)
[2023-06-23] MEDS: MAGNESIUM SULFATE / D5W 1 GM/100 ML BAG IV SCH ×2 (09:28→11:06)
[2023-06-23] MEDS: LORazepam 2 MG/1 ML VIAL IV PRN ×2 (12:23→15:59)
--- NOTE | 2023-06-23 14:57 | Hospitalist Progress Note ---
Date of Service June 23, 2023 Assessment & Plan (1) Acute encephalopathy: Plan: the patient's current mentation reminds me of his 01/2022-02/2022 hospitalization he had a similar mental status at the onset of that protracted admission, and then later in the stay had a similar mental status as well reviewing records from the last year it appears he has had very poor medical decision making and poor decision making skills in general his daughter has expressed concerns about his capacity to care for himself and to make decisions on his behalf based on comments and documentation from the case management team from his prior hospital stays in late 2021 and early 2022 we will have to see where his mentation settles out as of today - 06/23/23 - he does not possess capacity to make informed choices for himself; that could exchange administrator time, however, if he improves consider MRI brain - r/o subacute CVA see below re: other plans of care 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: Plan: per previous discussions with the pt's family he has had intermittent psychotic symptoms over the years some of this was in the setting of etoh abuse he also has remote h/o drug abuse he continues to drink etoh, and had a detectable etoh level upon admission here I am uncertain if what I am seeing today is baseline vs a worsening dementia process vs Wernicke's encephalopathy vs a primary psychotic disorder vs other vs combination cont seroquel 25mg BID, with 25mg at HS prn for refractory agitation zyprexa 5mg IM prn for severe agitation / aggressive behaviors / etc check B1 check B12 replace low thyroid may need to involve psychiatry as on previous admissions based on my exam today I don't believe he is in active etoh withdrawal at this time nor DTs but is at risk of withdrawal AWSS protocol ativan for symptoms based on AWSS scoring cont telemetry (3) Cognitive impairment: Plan: in 2021 had a 6+ week hospital stay in which he went through suspected etoh withdrawal, which was then followed by protracted course of severe confusion by the end of that stay his mentation improved to the point where it was felt he had medical decision making capacity subsequently there has been concern based on the record that he has a developing dementia process vs other I don't believe a formal neurocognitive eval has ever been done based on today's visit with him he does not have capacity at the current time he cannot leave AMA check a B1 level while awaiting level place on high-dose thiamine IV check a B12 level (4) Learning disabilities: Plan: I have cared for Mr Sinclair on previous admissions His sister has reported he was diagnosed with learning disabilities early in life Always struggled in school etc (5) Hypomagnesemia: Plan: replace with IV mag sulfate repeat mag level am 2nd to etoh abuse (6) Hypertension: Plan: cont amlodipine 2.5mg daily cont metoprolol succinate 50mg daily adjust as needed (7) Hepatitis C: Plan: 12/2021 HepC ab + HepC RNA markedly elevated c/w active HepC infection ideally he see ID and/or GI after discharge to discuss definitive Rx with ongoing etoh abuse, however, uncertain if he is candidate recent ammonia level is wnl (8) Elevated AST (SGOT): Plan: likely 2nd to chronic HepC infection previous liver imaging 08/2022 without cirrhosis other LFTs are wnl (9) Hypothyroidism: Plan: previous TSH levels have been mildly high current TSH level also high FT4 borderline low in light of cognitive issues will replace start synthroid 50mcg daily repeat TSH 6 weeks (10) DVT prophylaxis: Plan: lovenox 40mg daily Admission and Anticipated Discharge Date Admission Date: June 22, 2023 Subjective patient very confused during the visit staff report he has had increasing agitation and restlessness as the day has gone on ultimately required a 1:1 sitter due to impulsivity, concern for safety, etc during my rounds he was sitting in the chair he knew he was at [facility] could not tell me the year or day of the week he shifted from unrelated topic to unrelated topic he kept referencing "talking with him for an hour" when I asked who he had been talking to he quickly shifted to another unrelated topic when asked if he is hearing voices he did not say no, but ultimately really didn't answer the question when asked about visual hallucinations he said "no," and then further stated something to the effect of "not right now" when asked where he was living he initially wasn't able to tell me I brought up his van and then he said "my van is outside" later in the afternoon he became agitated and aggressive sharonda lara was called ativan given followed by IM kim he did calm down with this he was not able to provide any meaningful history Review of Systems Review of Systems: neuro - denies headache cv - denies chest pain pulm - denies dyspnea GI - denies pain or N/V Physical Exam Physical Exam: gen - disheveled, very confused, ?confabulating?, a little restless but directable during my visit eyes - minimal horizontal nystagmus; no vertical nystagmus mouth - MMM heart - RRR, s1s2 lungs - CTA b/l abd - soft NT BS+ ext - no edema, pulses 2+ b/l psych - a/o x 2 only; very poor insight; ?confabulating; confused; ?hallucinations (visual) neuro - no tremors Results & Data Results & Data Vital Signs (Past 12 Hours) Vital Signs Temp Pulse Pulse Resp BP BP Pulse Ox 06/23/23 11:29 36.7 C 63 18 147/109 H 96 06/23/23 09:50 06/23/23 07:39 36.4 C L 60 18 169/94 H 96 06/23/23 07:00 58 L 06/23/23 05:19 36.7 C 74 18 164/91 H 96 06/23/23 04:00 36.9 C 63 18 172/108 H 97 O2 Del Method 06/23/23 11:29 Room Air 06/23/23 09:50 Room Air 06/23/23 07:39 Room Air 06/23/23 07:00 06/23/23 05:19 Room Air 06/23/23 04:00 Room Air Laboratory Results Laboratory Results - last 24 hr 06/23/23 06/23/23 07:15 07:15 WBC 5.21 RBC 4.19 L Hgb 12.3 L Hct 37.2 L MCV 88.8 MCH 29.4 MCHC 33.1 RDW Std Deviation 46.4 H RDW Coeff of Dutch 14.3 Plt Count 149 MPV 12.2 Immature Gran % (Auto) 0.4 Neut % (Auto) 46.8 Lymph % (Auto) 37.4 Larue % (Auto) 12.7 Eos % (Auto) 2.3 Baso % (Auto) 0.4 Neut # (Auto) 2.44 Lymph # (Auto) 1.95 Larue # (Auto) 0.66 H Eos # (Auto) 0.12 Baso # (Auto) 0.02 Immature Gran # (Auto) 0.02 Sodium 141 Potassium 3.5 Chloride 108 H Carbon Dioxide 27 Anion Gap 6 BUN 9 Creatinine 0.62 Est Cr Clr Drug Dosing 127.0 Est GFR ( Amer) 117.3 Est GFR (Non-Af Amer) 101.2 BUN/Creatinine Ratio 14.5 Glucose 95 Calcium 8.3 L Magnesium 1.6 L Total Bilirubin 0.7 AST 45 H ALT 51 Alkaline Phosphatase 55 Total Protein 6.5 D Albumin 3.7 Globulin 2.8 Albumin/Globulin Ratio 1.3 PG Care Time/CCT Total # of Minutes Spent Total Time Spent with Patient: Total time spent is greater than 50% in coordination of care (as documented) at patient's floor/unit and/or counseling patient: Coding Level of Care Code 82586 SUB INP/OBS CARE 3/50MIN Diagnoses Acute encephalopathy G93.40 Chronic alcoholism with psychosis with hallucinations F10.251 Cognitive impairment R41.89 Learning disabilities F81.9 Hypomagnesemia E83.42 Hypertension I10 Hepatitis C B19.20 Elevated AST (SGOT) R74.01 Hypothyroidism E03.9 DVT prophylaxis Z29.9
[2023-06-23] MEDS: THIAMINE HCL 500 MG in SODIUM CHLORIDE 0.9% 50 ML IV SCH (15:33)
--- NOTE | 2023-06-23 16:13 | Electrocardiogram Report ---
Test Reason : Blood Pressure : / mmHG Vent. Rate : 072 BPM Atrial Rate : 072 BPM P-R Int : 142 ms QRS Dur : 094 ms QT Int : 412 ms P-R-T Axes : 021 045 024 degrees QTc Int : 451 ms Normal sinus rhythm Normal ECG When compared with ECG of 23-SEP-2022 09:55, No significant change was found Confirmed by Robbin Donahue ([id number]) on 06/23/2023 4:12:36 PM Referred By: REFERRED SELF Confirmed By:Robbin Donahue
[2023-06-23] MEDS: OLANZapine 10 MG/2.1 ML SDV IM PRN (16:27)
[2023-06-23] MEDS ORDERED: QUEtiapine FUMARATE 25 MG TABLET PO PRN (19:38)
[2023-06-24] MEDS: LORazepam 2 MG/1 ML VIAL IV PRN ×2 (00:25→20:39)
[2023-06-24] MEDS: THIAMINE HCL 500 MG in SODIUM CHLORIDE 0.9% 50 ML IV SCH ×4 (00:31→23:30)
[2023-06-24] MEDS: LEVOTHYROXINE SODIUM 50 MCG TABLET PO SCH (06:24)
[2023-06-24] MEDS: FOLIC ACID 1 MG in SYRINGE 9.8 ML IV SCH (08:26)
[2023-06-24] MEDS: ENOXAPARIN INJ 40 MG/0.4 ML SYR SQ SCH (08:26)
[2023-06-24] MEDS: amLODIPine BESYLATE 5 MG TAB PO SCH ×2 (08:26→17:21)
[2023-06-24] MEDS: QUEtiapine FUMARATE 25 MG TABLET PO SCH (08:27)
[2023-06-24] MEDS: METOPROLOL SUCC 50MG EXT REL TAB PO SCH ×2 (08:27→17:21)
[2023-06-24] MEDS: OLANZapine 10 MG/2.1 ML SDV IM PRN (10:26)
--- NOTE | 2023-06-24 11:58 | Hospitalist Progress Note ---
Date of Service June 24, 2023 Assessment & Plan (1) Acute encephalopathy: Plan: the patient's current mentation reminds me of his 01/2022-02/2022 hospitalization he had a similar mental status at the onset of that protracted admission, and then later in the stay had a similar mental status as well reviewing records from the last year it appears he has had very poor medical decision making and poor decision making skills in general his daughter has expressed concerns about his capacity to care for himself and to make decisions on his behalf based on comments and documentation from the case management team from his prior hospital stays in late 2021 and early 2022 we will have to see where his mentation settles out he remains very confused, combative, agitated today requiring the use of soft limb restraints it is unclear how much of this is etoh withdrawal vs a Wernicke's type state vs delirium in the setting of baseline dementia vs combination of factors his 2021 hospitalization was very complicated thus will involve psychiatry who knows him well from that admission defer med management to psych cont AWSS protocol cont high-dose thiamine 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: Plan: per previous discussions with the pt's family he has had intermittent psychotic symptoms over the years some of this was in the setting of etoh abuse he also has remote h/o drug abuse he continues to drink etoh, and had a detectable etoh level upon admission here psych consult requested defer med management to them (antipsychotics, etc) cont seroquel 25mg BID, with 25mg at HS prn for refractory agitation zyprexa 5mg IM prn for severe agitation / aggressive behaviors / etc check B1 - pending - give high-dose thiamine in meantime check B12 - about 400 replace low thyroid - synthroid 50mcg daily ?early etoh withdrawal with worsening behavior & agitation?? (3) Cognitive impairment: Plan: in 2021 had a 6+ week hospital stay in which he went through suspected etoh withdrawal, which was then followed by protracted course of severe confusion by the end of that stay his mentation improved to the point where it was felt he had medical decision making capacity subsequently there has been concern based on the record that he has a developing dementia process vs other I don't believe a formal neurocognitive eval has ever been done cont to not have capacity at the current time he cannot leave AMA (4) Learning disabilities: Plan: I have cared for Mr Sinclair on previous admissions His sister has reported he was diagnosed with learning disabilities early in life Always struggled in school etc (5) Hypomagnesemia: Plan: replaced resolved (6) Hypertension: Plan: cont amlodipine but increase to 5mg daily cont metoprolol succinate 50mg daily adjust as needed (7) Hepatitis C: Plan: 12/2021 HepC ab + HepC RNA markedly elevated c/w active HepC infection ideally he see ID and/or GI after discharge to discuss definitive Rx with ongoing etoh abuse, however, uncertain if he is candidate recent ammonia level is wnl (8) Elevated AST (SGOT): Plan: likely 2nd to chronic HepC infection previous liver imaging 08/2022 without cirrhosis other LFTs are wnl (9) Hypothyroidism: Plan: previous TSH levels have been mildly high current TSH level also high FT4 borderline low in light of cognitive issues will replace start synthroid 50mcg daily repeat TSH 6 weeks (10) DVT prophylaxis: Plan: lovenox 40mg daily Plan will contact pt's daughter in near-future to update her Admission and Anticipated Discharge Date Admission Date: June 22, 2023 Subjective patient was combative this am trying to hit/kick staff members he refused his PO seroquel at that point, to protect the safety of staff members, patient was placed in soft limb restraints to both arms dose of IM zyprexa subsequently given I saw him a short time later he was more calm he said "hey doc, when am I getting out of here?" he was confused, shifting from topic to topic, with little insight into his illness he again denied etoh use to me prior to admission Review of Systems Review of Systems: cv - denies chest pain pulm - denies dyspnea neuro - denies headache GI - denies pain gen - does not have a great appetite Physical Exam Physical Exam: gen - disheveled, very confused, confabulating, in restraints mouth - MMM heart - RRR, s1s2, no murmur lungs - CTA b/l abd - soft NT BS+; no HSM ext - no edema, pulses 2+ b/l psych - a/o x 1 only; very poor insight; confused Results & Data Results & Data Vital Signs (Past 12 Hours) Vital Signs Temp Pulse Pulse Resp BP Pulse Ox O2 Del Method 06/24/23 06:30 36.7 C 76 18 166/95 H 94 Room Air 06/24/23 01:12 69 06/24/23 02:58 Room Air Laboratory Results refused AM labs today PG Care Time/CCT Total # of Minutes Spent Total Time Spent with Patient: Total time spent is greater than 50% in coordination of care (as documented) at patient's floor/unit and/or counseling patient: Coding Level of Care Code 55147 SUB INP/OBS CARE 2/35MIN Diagnoses Acute encephalopathy G93.40 Chronic alcoholism with psychosis with hallucinations F10.251 Cognitive impairment R41.89 Learning disabilities F81.9 Hypomagnesemia E83.42 Hypertension I10 Hepatitis C B19.20 Elevated AST (SGOT) R74.01 Hypothyroidism E03.9 DVT prophylaxis Z29.9
[2023-06-24] MEDS ORDERED: HALOPERIDOL LACTATE 5 MG/ML 1 ML VIAL IV SCH (14:10)
--- NOTE | 2023-06-24 15:07 | Psychiatric Consultation ---
Date of Consultation June 24, 2023 Impression / Recommendations Impression 68 yo male with recurrent hospitalizations for ETOH withdrawal with little information re: intra-episode functioning but seemingly with significant cognitive issues and/or hallucinations at baseline given his chronic alcohol abuse. Difficult to fully differentiate primary dx as Wernicke's encephalopathy/Korsakoff's psychosis as he is so acutely ill when admitted and may also have degree of progressive decline superimposed on baseline learning issues. Coures of illness suggests alcohol induced rather than primary psychotic disorder though sister described some schizoid personality. (1) Acute encephalopathy: 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: Plan case discussed with Dr. Tony. Plan was for standing IV Haldol as injections l ikely agitating for patient but he is on an appropriate unit for nursing administration. Will replace PO Seroquel with Haldol for now to see if more effective acutely. Zyprexa IM still OK for prn as less likely to cause EPS. Benzos are typically primary rx of withdrawal but his encephalopathy is in excess of his other withdrawal symptoms and receiving AWSS protocol. If ineffective consider standing Librium. CPT Code Overall, I spent a total of 64 minutes with this case, including review of chart, review of records, direct evaluation of the patient, ordering medication, coordination with nursing and hospitalist, and documentation. Psych History Identifying Data The patient is a 68-year-old male with a past medical history including hypertension, agitation, alcoholism and obesity who presented to the emergency department with AMS/hallucinations. Mr. Sinclair was last seen on consult service by Dr. Angulo earlier this year. Chief Complaint "I see people and animals and wonder if they have come to kill me." History of Present Illness This presentation he reported drinking a six pack a day with last use 2 days prior to admission. He is currently in soft wrist restraints and had period of agitation overnight requiring prn Zyprexa. He has difficulty accepting po meds consistently. It is not clear if he was taking his Seroquel consistently, there is a fill in surescripts from 05/24. Regardless it was restarted here. Arvind is well known to the psychiatry consult service from his previous medical admissions 2021 and 2022. the year is "2-2-0-3". Per sure scripts review doesn't appear to have filled the seroquel he was discharged on in February 2022 since early fall 2021. He has resided various places between stays such as boarding home, motel, and out of his van. Formal psych hx is limited, during a previous stay it was confirmed he was incarcerated on/off for drug related charges, using MJ and abusing ETOH most of his life. He had a significant learning disability at baseline. Hallucinations started 3-4 years ago. Allergies Allergy/AdvReac Type Severity Reaction Status Date / Time bee venom protein (honey bee) AdvReac Severe Anaphylaxis Unverified 12/29/22 10:10 Home Medications Medication Instructions Recorded Confirmed Type epinephrine 0.3 mg/0.3 mL 0.3 mg (0.3 mL) IM Q10M PRN 12/24/22 06/22/23 Rx injection, auto-injector bronchodilation #2 ea amlodipine 2.5 mg tablet 2.5 mg PO DAILY 06/22/23 06/22/23 History metoprolol succinate 50 mg 50 mg PO DAILY 06/22/23 06/22/23 History tablet,extended release 24 hr quetiapine 25 mg tablet 25 mg PO BID 06/22/23 06/22/23 History Patient History Medical History Alcohol dependence (06/08/11) Alcohol use disorder Bee sting allergy Broken tooth Chronic dental pain Cognitive impairment Depression (06/08/11) Hallucination, visual Hepatitis C Hypertension Impacted third molar tooth Marijuana use Surgical History Status post hernia repair Status post knee surgery Family History Father Diabetes Hypertension Mother Breast cancer Denies family history of Ovarian cancer Prostate cancer Myocardial infarction Colorectal cancer Social History Smoking Status: Never smoker Hx Alcohol Use: Yes Alcohol type: beer Hx Substance Use: Yes Last Used Substance: Unknown Last Used Substance Other:: back in high school Preferred Language: Belarusian Communication Ability: Effective Visual Impairment: No Limitations Hearing Ability: Normal Watch Dial Maker Required: No Beliefs That Will Affect Care: None marital status: Single Current Living Situation: Boarding Home and Other Current Living Situation Comment: [facility] current occupational status: retired Feels Safe at Home: Yes Childhood Exposure to Second-Hand Smoke: No Dental Care, Regularly: Yes Physical Activity Frequency: Does not Exercise Seatbelt Use: always Assistive Devices: None Physical Exam Psychiatric: Orientation: alert and oriented to person Apperance: + disheveled Eye Contact: + poor eye contact Motor Behavior: + abnormal caty r movements (restless) Speech: + abnormal rate/rhythm/volume of speech (garbled) Affect: + blunted affect Mood: + anxious mood Thought Process: + tangential thought process and + looseness of associations Thought Content: + paranoid Hallucinations: + visual hallucinations (when asked, did not appear to be responding to internal stimuli during exam); no auditory hallucinations Cognition: + attention not intact Insight: + limited insight Judgment: + limited judgement Vital Signs (Past 24 Hours): Last Vital Signs Temp 36.7 C 06/24/23 06:30 Pulse 76 06/24/23 06:30 Resp 18 06/24/23 06:30 BP 166/95 H 06/24/23 06:30 Pulse Ox 94 06/24/23 06:30 O2 Del Method Room Air 06/24/23 06:30 Review of Systems Unobtainable due to cognitive status Results & Data (PSY) Medications Administered Amlodipine Besylate (Amlodipine Besylate 5 Mg Tab) 5 mg PO DAILY [facility] Stop: 07/24/23 08:59 Last Admin: 06/24/23 08:26 Dose: 5 mg Documented By: MJ Enoxaparin Sodium (Enoxaparin Inj 40 Mg/0.4 Ml Syr) 40 mg SQ Q24H [facility] Stop: 07/23/23 08:59 Last Admin: 06/24/23 08:26 Dose: Not Given Documented By: Admin: 06/23/23 07:58 Dose: 40 mg Documented By: VERONICA Folic Acid 1 mg/ Syringe 10 mls @ 5 mls/min IV QAM [facility] Stop: 07/23/23 08:59 Last Admin: 06/24/23 08:26 Dose: 5 mls/min Documented By: Admin: 06/23/23 07:58 Dose: 5 mls/min Documented By: VERONICA Thiamine HCl 500 mg/ Sodium (Chloride) 55 mls @ 210 mls/hr IV Q8H [facility] Stop: 07/23/23 14:59 Last Admin: 06/24/23 13:58 Dose: 210 mls/hr Documented By: Infusion: 06/24/23 06:25 Dose: 0 mls/hr Documented By: Admin: 06/24/23 06:00 Dose: 210 mls/hr Documented By: Infusion: 06/24/23 01:19 Dose: 0 mls/hr Documented By: Admin: 06/24/23 00:31 Dose: 210 mls/hr Documented By: Infusion: 06/23/23 15:51 Dose: 0 mls/hr Documented By: Admin: 06/23/23 15:33 Dose: 210 mls/hr Documented By: VERONICA Levothyroxine Sodium (Levothyroxine Sodium 50 Mcg Tablet) 50 mcg PO DAILYBB [facility] Stop: 07/24/23 06:29 Last Admin: 06/24/23 06:24 Dose: 50 mcg Documented By: SHERRIE Lorazepam (Lorazepam 2 Mg/1 Ml Vial) 2 mg IV UD PRN; Protocol PRN Reason: EtOH Withdrawal AWSS Score 8,9 Stop: 07/23/23 02:38 Last Admin: 06/24/23 00:25 Dose: 2 mg Documented By: SHERRIE Lorazepam (Lorazepam 2 Mg/1 Ml Vial) 1 mg IV UD PRN; Protocol PRN Reason: EtOH Withdrawal AWSS Score 6,7 Stop: 07/23/23 02:38 Last Admin: 06/23/23 15:59 Dose: 1 mg Documented By: Admin: 06/23/23 12:23 Dose: 1 mg Documented By: VERONICA Metoprolol Succinate (Metoprolol Succ 50mg Ext Rel Tab) 50 mg PO DAILY [facility] Stop: 07/23/23 08:59 Last Admin: 06/24/23 08:27 Dose: 50 mg Documented By: Admin: 06/23/23 07:58 Dose: 50 mg Documented By: VERONICA Olanzapine (Olanzapine 10 Mg/2.1 Ml Sdv) 5 mg IM Q6H PRN PRN Reason: Agitation Stop: 07/23/23 02:38 Last Admin: 06/24/23 10:26 Dose: 5 mg Documented By: Admin: 06/23/23 16:27 Dose: 5 mg Documented By: VERONICA Quetiapine Fumarate (Quetiapine Fumarate 25 Mg Tablet) 25 mg PO BID [facility] Stop: 07/23/23 02:38 Last Admin: 06/24/23 08:27 Dose: 25 mg Documented By: Admin: 06/23/23 20:44 Dose: 25 mg Documented By: Admin: 06/23/23 07:59 Dose: 25 mg Documented By: Admin: 06/23/23 03:29 Dose: 25 mg Documented By: SHERRIE Coding Level of Care Code 65667 [facility] Intl Hosp Care Lvl 2 Diagnoses Acute encephalopathy G93.40 Chronic alcoholism with psychosis with hallucinations F10.251
[2023-06-24] MEDS ORDERED: BENZTROPINE MESYLATE 1 MG TAB PO PRN (15:25)
[2023-06-24] MEDS: haloperidoL 5 MG TAB PO SCH ×2 (16:24→20:39)
[2023-06-24 19:30] LABS: Basophils # (auto) 0.03 K/uL (0.00-0.20); Basophils % (auto) 0.5 %; Eosinophils # (auto) 0.34 K/uL (0.00-0.50); Eosinophils % (auto) 5.2 %; Hematocrit (blood only) 42.2 % (42.0-52.0); Hemoglobin 14.2 g/dl (14.0-18.0); Immature Granulocytes # (auto) 0.02 K/uL (0.01-0.20); Immature Granulocytes % (auto) 0.3 %; Lymphocytes # (auto) 1.46 K/uL (1.20-3.40); Lymphocytes % (auto) 22.3 %; Mean Corpuscular Hemoglobin 29.8 pg (25.0-34.0); Mean Corpuscular Hgb Conc 33.6 g/dL (32.0-36.0); Mean Corpuscular Volume 88.7 fL (80.0-100.0); Mean Platelet Volume 12.2 fL (9.4-12.4); Monocytes % (auto) 10.7 %; Platelet Count 166 K/uL (130-400); RDW Coefficient of Variation 14.2 % (11.5-14.5); RDW Standard Deviation 45.3 fL (36.4-46.3); Red Blood Count 4.76 M/uL (4.70-6.10); White Blood Count 6.55 K/ul (4.8-10.8)
[2023-06-24 19:54] LABS: Albumin Globulin Ratio 1.2 (0.9-2); Albumin Level 4.1 gm/dl (3.4-5.0); BUN Creatinine Ratio 15.8 (10-20); Bilirubin,Total 0.5 mg/dl (0.2-1.0); Calcium 9.2 mg/dl (8.6-10.3); Creatinine Clr Calc Pharmacy 82.9 ml/min; Est GFR (African American) 94.3 ml/min; Est GFR (Non-African American) 81.3 ml/min; Globulin 3.4 gm/dl (2.5-4.0); Magnesium 1.8 mg/dl (1.7-2.4); Potassium 3.6 mmol/L (3.5-5.1); Total Protein 7.5 gm/dl (6.0-8.3)
[2023-06-25] MEDS: METOPROLOL TARTRATE 1 MG/ML VIAL IV PRN ×5 (02:46→10:35)
[2023-06-25] MEDS: LEVOTHYROXINE SODIUM 50 MCG TABLET PO SCH (06:25)
[2023-06-25 07:33] LABS: Basophils # (auto) 0.03 K/uL (0.00-0.20); Basophils % (auto) 0.4 %; Eosinophils # (auto) 0.34 K/uL (0.00-0.50); Eosinophils % (auto) 4.8 %; Hematocrit (blood only) 44.4 % (42.0-52.0); Hemoglobin 14.8 g/dl (14.0-18.0); Immature Granulocytes # (auto) 0.03 K/uL (0.01-0.20); Immature Granulocytes % (auto) 0.4 %; Lymphocytes # (auto) 1.42 K/uL (1.20-3.40); Lymphocytes % (auto) 20.1 %; Mean Corpuscular Hemoglobin 29.7 pg (25.0-34.0); Mean Corpuscular Hgb Conc 33.3 g/dL (32.0-36.0); Mean Corpuscular Volume 89.2 fL (80.0-100.0); Mean Platelet Volume 12.2 fL (9.4-12.4); Monocytes # (auto) 0.72 K/uL (0.11-0.59); Monocytes % (auto) 10.2 %; Neutrophils # (auto) 4.51 K/uL (1.40-6.50); Neutrophils % (auto) 64.1 %; Platelet Count 162 K/uL (130-400); RDW Coefficient of Variation 14.1 % (11.5-14.5); RDW Standard Deviation 45.1 fL (36.4-46.3); Red Blood Count 4.98 M/uL (4.70-6.10); White Blood Count 7.05 K/ul (4.8-10.8)
[2023-06-25] MEDS: haloperidoL 5 MG TAB PO SCH ×2 (07:40→20:30)
[2023-06-25] MEDS: FOLIC ACID 1 MG in SYRINGE 9.8 ML IV SCH (07:40)
[2023-06-25] MEDS: ENOXAPARIN INJ 40 MG/0.4 ML SYR SQ SCH (07:40)
[2023-06-25] MEDS: amLODIPine BESYLATE 5 MG TAB PO SCH (07:41)
[2023-06-25 07:47] LABS: Albumin Globulin Ratio 1.3 (0.9-2); Albumin Level 4.3 gm/dl (3.4-5.0); BUN Creatinine Ratio 15.8 (10-20); Bilirubin,Total 0.9 mg/dl (0.2-1.0); Calcium 9.5 mg/dl (8.6-10.3); Creatinine Clr Calc Pharmacy 101.6 ml/min; Est GFR (African American) 107.9 ml/min; Est GFR (Non-African American) 93.1 ml/min; Globulin 3.4 gm/dl (2.5-4.0); Magnesium 1.8 mg/dl (1.7-2.4); Potassium 3.4 mmol/L (3.5-5.1); Total Protein 7.7 gm/dl (6.0-8.3)
[2023-06-25] MEDS: LORazepam 2 MG/1 ML VIAL IV PRN ×3 (08:04→23:19)
[2023-06-25] MEDS: METOPROLOL SUCC 50MG EXT REL TAB PO SCH (09:56)
[2023-06-25] MEDS: THIAMINE HCL 500 MG in SODIUM CHLORIDE 0.9% 50 ML IV SCH ×3 (09:56→23:19)
[2023-06-25] MEDS ORDERED: POTASSIUM CHLORIDE CRTAB 20 MEQ TABCR PO SCH (11:00)
[2023-06-25] MEDS: D5NSS + 20MEQ KCL 20 MEQ/1,000 ML BAG IV SCH ×2 (13:27→20:25)
--- NOTE | 2023-06-25 14:00 | Psychiatric Progress Note ---
Date of Service June 25, 2023 Impression / Recommendations Impression 68 yo male with recurrent hospitalizations for ETOH withdrawal with little information re: intra-episode functioning but seemingly with significant cognitive issues and/or hallucinations at baseline given his chronic alcohol abuse. Difficult to fully differentiate primary dx as Wernicke's encephalopathy/Korsakoff's psychosis as he is so acutely ill when admitted and may also have degree of progressive decline superimposed on baseline learning issues. Coures of illness suggests alcohol induced rather than primary psychotic disorder though sister described some schizoid personality. 06/25/2023: escalating withdrawal like symptoms Overall, I spent a total of 38 minutes with this case, including review of chart, direct evaluation of the patient, coordination of care with hospitalist service, and documentation. (1) Acute encephalopathy: 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: Plan Discussed addition of Librium with Dr. Tony vs. clonidine for BP, reconfirmed patient is no longer cooperative with PO. Has required Precedex drip in the past. If desire to maintain on current floor status, trial of standing Ativan IV 2 mg q4-6 hr recommended with additional per AWSS. Can be tapered when no longer scoring or converted to Librium when accepting PO. Interval History Identifying Information The patient is a 68-year-old male with a past medical history including hypertension, agitation, alcoholism and obesity who presented to the emergency department with AMS/hallucinations. Mr. Sinclair was last seen on consult service by Dr. Angulo earlier this year. Chief Complaint complex alcohol related encephalopathy/withdrawal Review of Systems Notes patient unable to participate Subjective Subjective Patient was seen & assessed and interval progress reviewed with nursing and Dr. Tony. Patient remains very disorganized and significant scoring on AWSS. Resistant to pO meds and in fact this am spit them in nurses face, hallucinating per 1 on 1. Review of chart shows approximately 10 mg Ativan given in past 24 hrs per AWSS and still has restlessness and BP elevations. Physical Exam Psychiatric patient currently sleeping with 1 on 1 at bedside, will allow therapeutic rest as unable to provide reliable MSE. Vital Signs (Past 24 Hours) Last Vital Signs Temp 36.7 C 06/25/23 11:00 Pulse 70 06/25/23 11:00 Resp 18 06/25/23 11:00 BP 154/97 H 06/25/23 11:00 Pulse Ox 93 06/25/23 11:00 O2 Del Method Room Air 10/13/23 11:00 Results & Data ([facility]) Laboratory Results Laboratory Results - last 24 hr 06/24/23 06/24/23 06/24/23 19:01 19:01 19:01 WBC 6.55 RBC 4.76 Hgb 14.2 Hct 42.2 MCV 88.7 MCH 29.8 MCHC 33.6 RDW Std Deviation 45.3 RDW Coeff of Dutch 14.2 Plt Count 166 MPV 12.2 Immature Gran % (Auto) 0.3 Neut % (Auto) 61.0 Lymph % (Auto) 22.3 Dare % (Auto) 10.7 Eos % (Auto) 5.2 Baso % (Auto) 0.5 Neut # (Auto) 4.00 Lymph # (Auto) 1.46 Dare # (Auto) 0.70 H Eos # (Auto) 0.34 Baso # (Auto) 0.03 Immature Gran # (Auto) 0.02 Sodium 140 Potassium 3.6 Chloride 108 H Carbon Dioxide 25 Anion Gap 7 BUN 15 Creatinine 0.95 D Est Cr Clr Drug Dosing 82.9 Est GFR ( Amer) 94.3 Est GFR (Non-Af Amer) 81.3 BUN/Creatinine Ratio 15.8 Glucose 124 H Calcium 9.2 Magnesium 1.8 Total Bilirubin 0.5 AST 39 ALT 46 Alkaline Phosphatase 71 Total Protein 7.5 Albumin 4.1 Globulin 3.4 Albumin/Globulin Ratio 1.2 Vitamin B12 394 06/25/23 06/25/23 07:06 07:06 WBC 7.05 RBC 4.98 Hgb 14.8 Hct 44.4 MCV 89.2 MCH 29.7 MCHC 33.3 RDW Std Deviation 45.1 RDW Coeff of Dutch 14.1 Plt Count 162 MPV 12.2 Immature Gran % (Auto) 0.4 Neut % (Auto) 64.1 Lymph % (Auto) 20.1 Dare % (Auto) 10.2 Eos % (Auto) 4.8 Baso % (Auto) 0.4 Neut # (Auto) 4.51 Lymph # (Auto) 1.42 Dare # (Auto) 0.72 H Eos # (Auto) 0.34 Baso # (Auto) 0.03 Immature Gran # (Auto) 0.03 Sodium 141 Potassium 3.4 L Chloride 105 Carbon Dioxide 30 Anion Gap 6 BUN 12 Creatinine 0.76 Est Cr Clr Drug Dosing 101.6 Est GFR ( Amer) 107.9 Est GFR (Non-Af Amer) 93.1 BUN/Creatinine Ratio 15.8 Glucose 110 H Calcium 9.5 Magnesium 1.8 Total Bilirubin 0.9 AST 39 ALT 49 Alkaline Phosphatase 68 Total Protein 7.7 Albumin 4.3 Globulin 3.4 Albumin/Globulin Ratio 1.3 Vitamin B12 Current Inpatient Medications Current Inpatient Medications: Current Inpatient Medications Acetaminophen (Acetaminophen 325 Mg Tab) 650 mg PO Q4H PRN PRN Reason: Pain or Fever Stop: 07/23/23 02:38 Amlodipine Besylate (Amlodipine Besylate 5 Mg Tab) 5 mg PO DAILY [facility] Stop: 07/24/23 08:59 Last Admin: 06/25/23 07:41 Dose: 5 mg Benztropine Mesylate (Benztropine Mesylate 1 Mg Tab) 1 mg PO Q6 PRN PRN Reason: EPS Stop: 07/24/23 17:59 Last Admin: 06/25/23 07:41 Dose: 1 mg Enoxaparin Sodium (Enoxaparin Inj 40 Mg/0.4 Ml Syr) 40 mg SQ Q24H [facility] Stop: 07/23/23 08:59 Last Admin: 06/25/23 07:40 Dose: 40 mg Haloperidol (Haloperidol 5 Mg Tab) 5 mg PO BID [facility] Stop: 07/24/23 15:14 Last Admin: 06/25/23 07:40 Dose: 5 mg Folic Acid 1 mg/ Syringe 10 mls @ 5 mls/min IV QAM [facility] Stop: 07/23/23 08:59 Last Admin: 06/25/23 07:40 Dose: 5 mls/min Thiamine HCl 500 mg/ Sodium (Chloride) 55 mls @ 210 mls/hr IV Q8H [facility] Stop: 07/23/23 14:59 Last Infusion: 06/25/23 10:33 Dose: Infused Potassium Chloride/Dextrose/Sod Cl (D5nss + 20meq Kcl) 20 meq in 1,000 mls @ 12 5 mls/hr IV .Q8H [facility]; Protocol Stop: 06/26/23 03:14 Last Admin: 06/25/23 13:27 Dose: 125 mls/hr Levothyroxine Sodium (Levothyroxine Sodium 50 Mcg Tablet) 50 mcg PO DAILYBB [facility] Stop: 07/24/23 06:29 Last Admin: 06/25/23 06:25 Dose: Not Given Lorazepam (Lorazepam 2 Mg/1 Ml Vial) 2 mg IV UD PRN; Protocol PRN Reason: EtOH Withdrawal AWSS Score 8,9 Stop: 07/23/23 02:38 Last Admin: 06/25/23 10:05 Dose: 2 mg Lorazepam (Lorazepam 2 Mg/1 Ml Vial) 1 mg IV UD PRN; Protocol PRN Reason: EtOH Withdrawal AWSS Score 6,7 Stop: 07/23/23 02:38 Last Admin: 06/23/23 15:59 Dose: 1 mg Metoprolol Succinate (Metoprolol Succ 50mg Ext Rel Tab) 50 mg PO DAILY [facility] Stop: 07/23/23 08:59 Last Admin: 06/25/23 09:56 Dose: 50 mg Metoprolol Tartrate (Metoprolol Tartrate 1 Mg/Ml Vial) 5 mg IV Q5M PRN PRN Reason: Tachycardia Stop: 07/23/23 02:38 Last Admin: 06/25/23 10:35 Dose: 5 mg Olanzapine (Olanzapine 10 Mg/2.1 Ml Sdv) 5 mg IM Q6H PRN PRN Reason: Agitation Stop: 07/23/23 02:38 Last Admin: 06/24/23 10:26 Dose: 5 mg Ondansetron HCl (Ondansetron Inj 2 Mg/Ml 2 Ml Vial) 4 mg IV Q6H PRN PRN Reason: Nausea Stop: 07/23/23 02:38 Quetiapine Fumarate (Quetiapine Fumarate 25 Mg Tablet) 25 mg PO BID [facility] Stop: 07/23/23 02:38 Last Admin: 06/24/23 08:27 Dose: 25 mg Quetiapine Fumarate (Quetiapine Fumarate 25 Mg Tablet) 25 mg PO HS PRN PRN Reason: persistent agitation/confusion Stop: 07/23/23 20:59
--- NOTE | 2023-06-25 20:53 | Hospitalist Progress Note ---
Date of Service June 25, 2023 Assessment & Plan (1) Acute encephalopathy: Plan: remains confused, combative, agitated without use of IV ativan, haldol, etc. current mental status likely a combination of etoh withdrawal +/- a Wernicke's type state +/- delirium in the setting of baseline dementia vs combination of factors in 2021 had a protracted hospitalization marked by prolonged etoh withdrawal period followed by weeks of confusion appreciate psychiatry involvement & recs now on haldol 5mg BID along with IV ativan prn per AWSS protocol finishing high-dose thiamine course B1 level is pending without IV ativan, haldol, etc he has been combative with staff and he cannot follow directions thus, continue restraints but remove when able (2) Alcohol withdrawal: Plan: AWSS protocol appreciate psych assistance cont thiamine/folate supplementation telemetry IV fluids etc (3) Chronic alcoholism with psychosis with hallucinations: Plan: per previous discussions with the pt's family he has had intermittent psychotic symptoms over the years some of this was in the setting of etoh abuse he also has remote h/o drug abuse he continues to drink etoh, and had a detectable etoh level upon admission here psych consult requested defer med management to them (antipsychotics, etc) checked B1 - pending - giving high-dose thiamine in meantime checked B12 - about 400 replace low thyroid - synthroid 50mcg daily likely with etoh withdrawal as in #1 above (4) Cognitive impairment: Plan: in 2021 had a 6+ week hospital stay in which he went through suspected etoh withdrawal, which was then followed by protracted course of severe confusion by the end of that stay his mentation improved to the point where it was felt he had medical decision making capacity subsequently there has been concern based on the record that he has a developing dementia process vs other I don't believe a formal neurocognitive eval has ever been done continues to not have capacity at the current time he cannot leave AMA (5) Learning disabilities: Plan: I have cared for Mr Sinclair on previous admissions His sister has reported he was diagnosed with learning disabilities early in [place] Always struggled in school etc (6) Hypomagnesemia: Plan: replaced resolved (7) Hypertension: Plan: cont amlodipine 5mg daily cont metoprolol succinate 50mg daily if unable to take PO meds change to IV lopressor, hydralazine, etc (8) Hepatitis C: Plan: 12/2021 HepC ab + HepC RNA markedly elevated c/w active HepC infection ideally he see ID and/or GI after discharge to discuss definitive Rx with ongoing etoh abuse, however, uncertain if he is candidate recent ammonia level is wnl (9) Elevated AST (SGOT): Plan: likely 2nd to chronic HepC infection previous liver imaging 08/2022 without cirrhosis other LFTs are wnl (10) Hypothyroidism: Plan: previous TSH levels have been mildly high current TSH level also high FT4 borderline low in light of cognitive issues will replace start synthroid 50mcg daily repeat TSH 6 weeks (11) DVT prophylaxis: Plan: lovenox 40mg daily (12) Hypokalemia: Plan: add KCL to IV fluids Plan will contact pt's daughter in near-future to update her Admission and Anticipated Discharge Date Admission Date: June 22, 2023 Subjective patient very somnolent during my visit was able to briefly open his eyes to his name being called only able to answer a couple of questions - when asked if he is in pain he stated "no" when asked if anything was bothering him he stated "no" he was otherwise unable to answer any additional questions no PO intake today has required multiple doses of IV ativan overnight/this am due to etoh withdrawal symptoms/agitation without restraints he is combative thus restraint order renewed this am tele - NSR Review of Systems Review of Systems: Unobtainable due to cognitive status Physical Exam Physical Exam: gen - somnolent, NAD eyes - PERRL, pupils about 3mm b/l mouth - MMM heart - RRR, s1 s2, no murmur lungs - CTA b/l, decreased BS bases abd - soft NT BS+ ND; no HSM ext - no edema, pulses 2+ b/l psych - somnolent, unable to ask any orientation questions musculo - b/l wrists remain in soft limb restraints Results & Data Results & Data Vital Signs (Past 12 Hours) Vital Signs Temp Pulse Pulse Pulse Resp BP BP 06/25/23 19:31 163/92 H 06/25/23 18:51 36.7 C 75 16 187/95 H 06/25/23 15:41 69 06/25/23 14:43 36.3 C L 66 66 20 155/126 H 06/25/23 11:00 75 154/97 H 06/25/23 11:00 36.7 C 70 18 154/97 H 06/25/23 10:35 78 181/113 H 06/25/23 10:33 78 181/113 H 06/25/23 10:05 80 203/119 H Pulse Ox O2 Del Method 06/25/23 19:31 06/25/23 18:51 95 Room Air 06/25/23 15:41 06/25/23 14:43 94 Room Air 06/25/23 11:00 06/25/23 11:00 93 Room Air 06/25/23 10:35 06/25/23 10:33 06/25/23 10:05 Laboratory Results Laboratory Results - last 24 hr 06/25/23 06/25/23 07:06 07:06 WBC 7.05 RBC 4.98 Hgb 14.8 Hct 44.4 MCV 89.2 MCH 29.7 MCHC 33.3 RDW Std Deviation 45.1 RDW Coeff of Dutch 14.1 Plt Count 162 MPV 12.2 Immature Gran % (Auto) 0.4 Neut % (Auto) 64.1 Lymph % (Auto) 20.1 Schuyler % (Auto) 10.2 Eos % (Auto) 4.8 Baso % (Auto) 0.4 Neut # (Auto) 4.51 Lymph # (Auto) 1.42 Schuyler # (Auto) 0.72 H Eos # (Auto) 0.34 Baso # (Auto) 0.03 Immature Gran # (Auto) 0.03 Sodium 141 Potassium 3.4 L Chloride 105 Carbon Dioxide 30 Anion Gap 6 BUN 12 Creatinine 0.76 Est Cr Clr Drug Dosing 101.6 Est GFR ( Amer) 107.9 Est GFR (Non-Af Amer) 93.1 BUN/Creatinine Ratio 15.8 Glucose 110 H Calcium 9.5 Magnesium 1.8 Total Bilirubin 0.9 AST 39 ALT 49 Alkaline Phosphatase 68 Total Protein 7.7 Albumin 4.3 Globulin 3.4 Albumin/Globulin Ratio 1.3 PG Care Time/CCT Total # of Minutes Spent Total Time Spent with Patient: Total time spent is greater than 50% in coordination of care (as documented) at patient's floor/unit and/or counseling patient: Coding Level of Care Code 32491 SUB INP/OBS CARE 2/35MIN Diagnoses Acute encephalopathy G93.40 Alcohol withdrawal F10.939 Chronic alcoholism with psychosis with hallucinations F10.251 Cognitive impairment R41.89 Learning disabilities F81.9 Hypomagnesemia E83.42 Hypertension I10 Hepatitis C B19.20 Elevated AST (SGOT) R74.01 Hypothyroidism E03.9 DVT prophylaxis Z29.9 Hypokalemia E87.6
[2023-06-26] MEDS: METOPROLOL TARTRATE 1 MG/ML VIAL IV PRN ×3 (02:37→08:17)
[2023-06-26] MEDS: LORazepam 2 MG/1 ML VIAL IV PRN ×5 (03:15→23:22)
[2023-06-26] MEDS ORDERED: hydrALAZINE HCL 20 MG/ML VIAL IV ONE (03:42)
[2023-06-26] MEDS ORDERED: hydrALAZINE HCL 20 MG/ML VIAL IV STA (05:14)
[2023-06-26] MEDS: LEVOTHYROXINE SODIUM 50 MCG TABLET PO SCH (05:50)
[2023-06-26 06:31] LABS: Base Excess VBG 1.5 mEq/L; HCO3 VBG 25 mmol/L; Oxygen Saturation VBG 76.4 %; PCO2 VBG 34 mmHg (38-50); PO2 VBG 41 mmHg; pH VBG 7.47 (7.36-7.41)
[2023-06-26 06:54] LABS: BUN Creatinine Ratio 14.7 (10-20); Calcium 9.5 mg/dl (8.6-10.3); Creatinine Clr Calc Pharmacy 114.9 ml/min; Est GFR (African American) 112.9 ml/min; Est GFR (Non-African American) 97.4 ml/min; Potassium 3.5 mmol/L (3.5-5.1)
[2023-06-26] MEDS: ENOXAPARIN INJ 40 MG/0.4 ML SYR SQ SCH (08:10)
[2023-06-26] MEDS: haloperidoL 5 MG TAB PO SCH ×2 (08:10→20:05)
[2023-06-26] MEDS: amLODIPine BESYLATE 5 MG TAB PO SCH (08:10)
[2023-06-26] MEDS: METOPROLOL SUCC 50MG EXT REL TAB PO SCH (08:11)
[2023-06-26] MEDS: THIAMINE HCL 200 MG in SODIUM CHLORIDE 0.9% 50 ML IV SCH ×2 (08:11→20:04)
[2023-06-26] MEDS: FOLIC ACID 1 MG in SYRINGE 9.8 ML IV SCH (08:11)
[2023-06-26] MEDS: D5NSS + 20MEQ KCL 20 MEQ/1,000 ML BAG IV SCH (19:27)
--- NOTE | 2023-06-26 19:45 | Hospitalist Progress Note ---
Date of Service June 26, 2023 Assessment & Plan (1) Acute encephalopathy: Plan: remains confused, agitated without use of IV ativan, haldol, etc. current mental status likely a combination of etoh withdrawal +/- a Wernicke's type state +/- delirium in the setting of baseline dementia vs combination of factors in 2021 had a protracted hospitalization marked by prolonged etoh withdrawal period followed by weeks of confusion appreciate psychiatry involvement & recs now on haldol 5mg BID along with IV ativan prn per AWSS protocol if lethargy continues would decrease haldol to 2.5mg BID B1 level is pending cont thiamine 200mg BID IV without IV ativan, haldol, etc he has been combative with staff and he cannot follow directions; pulls at lines; etc thus, continue restraints but remove when able (2) Alcohol withdrawal: Plan: AWSS protocol appreciate psych assistance see #1 above cont thiamine/folate supplementation telemetry resume IV fluids (3) Chronic alcoholism with psychosis with hallucinations: Plan: per previous discussions with the pt's family he has had intermittent psychotic symptoms over the years some of this was in the setting of etoh abuse he also has remote h/o drug abuse he continues to drink etoh, and had a detectable etoh level upon admission here psych consult requested defer med management to them (antipsychotics, etc) checked B1 - pending - s/p high-dose thiamine x 48 hours; now thiamine 200mg IV BID checked B12 - about 400 replace low thyroid - synthroid 50mcg daily; if unable to take give IV every 2-3 days likely with etoh withdrawal as in #1 above (4) Cognitive impairment: Plan: in 2021 had a 6+ week hospital stay in which he went through suspected etoh withdrawal, which was then followed by protracted course of severe confusion by the end of that stay his mentation improved to the point where it was felt he had medical decision making capacity subsequently there has been concern based on the record that he has a developing dementia process vs other I don't believe a formal neurocognitive eval has ever been done continues to not have capacity at the current time he cannot leave AMA (5) Learning disabilities: Plan: I have cared for Mr Sinclair on previous admissions His sister has reported he was diagnosed with learning disabilities early in life Always struggled in school etc (6) Hypomagnesemia: Plan: replaced resolved but recheck level am (7) Hypertension: Plan: cont amlodipine 5mg daily cont metoprolol succinate 50mg daily if unable to take PO meds change to IV lopressor, hydralazine, etc (8) Hepatitis C: Plan: 12/2021 HepC ab + HepC RNA markedly elevated c/w active HepC infection ideally he see ID and/or GI after discharge to discuss definitive Rx with ongoing etoh abuse, however, uncertain if he is candidate recent ammonia level is wnl but recheck in am due to lethargy (9) Elevated AST (SGOT): Plan: likely 2nd to chronic HepC infection previous liver imaging 08/2022 without cirrhosis other LFTs are wnl (10) Hypothyroidism: Plan: previous TSH levels have been mildly high current TSH level also high FT4 borderline low in light of cognitive issues will replace start synthroid 50mcg daily repeat TSH 6 weeks (11) DVT prophylaxis: Plan: lovenox 40mg daily (12) Hypokalemia: Plan: improved with adding KCL to IV fluids Plan contacted pt's daughter by phone this evening - no answer, left message on voicemail Admission and Anticipated Discharge Date Admission Date: June 22, 2023 Subjective patient lethargic during the visit only able to tell me he was thirsty one time he laughed when I asked him a question wasn't able to give me any answers to questions staff report that when he isn't receiving ativan he is agitated, trying to sit up in bed and pull at lines, etc very poor intake per staff Review of Systems Review of Systems: Unobtainable due to cognitive status Physical Exam Physical Exam: gen - somnolent, opens eyes only briefly to questions, lethargic eyes - PERRL, pupils about 3mm b/l and reactive; crusting of eyes mouth - MM very dry heart - RRR, s1 s2, no murmur lungs - CTA b/l abd - soft NT BS+ ND; no HSM ext - no edema, pulses 2+ b/l psych - somnolent/lethargic musculo - b/l wrists remain in soft limb restraints Results & Data Results & Data Vital Signs (Past 12 Hours) Vital Signs Temp Pulse Pulse Resp BP BP BP 06/26/23 19:43 36.8 C 81 18 159/99 H 06/26/23 14:55 36.7 C 80 18 168/89 H 06/26/23 16:00 85 06/26/23 15:36 36.5 C 78 18 155/93 H 06/26/23 11:45 36.6 C 87 18 164/99 H 06/26/23 12:45 36.4 C L 89 20 163/97 H 06/26/23 12:02 36.5 C 87 18 165/98 H 06/26/23 10:50 83 178/102 H 06/26/23 08:00 86 06/26/23 08:00 06/26/23 08:32 82 159/94 H 06/26/23 08:00 36.3 C L 85 18 167/104 H Pulse Ox O2 Del Method 06/26/23 19:43 95 Room Air 06/26/23 14:55 98 Room Air 06/26/23 16:00 06/26/23 15:36 95 Room Air 06/26/23 11:45 96 Room Air 06/26/23 12:45 98 Room Air 06/26/23 12:02 93 Room Air 06/26/23 10:50 06/26/23 08:00 06/26/23 08:00 Room Air 06/26/23 08:32 06/26/23 08:00 96 Room Air Laboratory Results Laboratory Results - last 48 hr 06/25/23 06/26/23 06/26/23 07:06 06:16 06:16 VBG pH 7.47 H VBG pCO2 34 L VBG pO2 41 VBG HCO3 25 VBG O2 Saturation 76.4 VBG Base Excess 1.5 Sodium 141 141 Potassium 3.4 L 3.5 Chloride 105 110 H Carbon Dioxide 30 24 Anion Gap 6 7 BUN 12 10 Creatinine 0.76 0.68 Est Cr Clr Drug Dosing 101.6 114.9 Est GFR ( Amer) 107.9 112.9 Est GFR (Non-Af Amer) 93.1 97.4 BUN/Creatinine Ratio 15.8 14.7 Glucose 110 H 114 H Calcium 9.5 9.5 Magnesium 1.8 Total Bilirubin 0.9 AST 39 ALT 49 Alkaline Phosphatase 68 Total Protein 7.7 Albumin 4.3 Globulin 3.4 Albumin/Globulin Ratio 1.3 PG Care Time/CCT Total # of Minutes Spent Total Time Spent with Patient: Total time spent is greater than 50% in coordination of care (as documented) at patient's floor/unit and/or counseling patient: Coding Level of Care Code 97293 SUB INP/OBS CARE 235MIN Diagnoses Acute encephalopathy G93.40 Alcohol withdrawal F10.939 Chronic alcoholism with psychosis with hallucinations F10.251 Cognitive impairment R41.89 Learning disabilities F81.9 Hypomagnesemia E83.42 Hypertension I10 Hepatitis C B19.20 Elevated AST (SGOT) R74.01 Hypothyroidism E03.9 DVT prophylaxis Z29.9 Hypokalemia E87.6
[2023-06-27] MEDS: METOPROLOL TARTRATE 1 MG/ML VIAL IV PRN ×2 (04:41→05:15)
[2023-06-27] MEDS: D5NSS + 20MEQ KCL 20 MEQ/1,000 ML BAG IV SCH (04:41)
[2023-06-27] MEDS: LEVOTHYROXINE SODIUM 50 MCG TABLET PO SCH (05:44)
[2023-06-27] MEDS ORDERED: hydrALAZINE HCL 20 MG/ML VIAL IV ONE (05:59)
[2023-06-27 08:12] LABS: BUN Creatinine Ratio 21.7 (10-20); Calcium 9.1 mg/dl (8.6-10.3); Creatinine Clr Calc Pharmacy 112.4 ml/min; Est GFR (African American) 112.3 ml/min; Est GFR (Non-African American) 96.9 ml/min; Magnesium 1.8 mg/dl (1.7-2.4); Phosphorus 3.4 mg/dl (2.5-4.9); Potassium 3.5 mmol/L (3.5-5.1)
[2023-06-27] MEDS: CIPROFLOXACIN HCL 0.3% OP SOLN 2.5 ML BTL OPB SCH ×4 (09:03→20:38)
[2023-06-27] MEDS: ENOXAPARIN INJ 40 MG/0.4 ML SYR SQ SCH (09:04)
[2023-06-27] MEDS: METOPROLOL TARTRATE 1 MG/ML VIAL IV SCH ×4 (09:04→23:19)
[2023-06-27] MEDS: FOLIC ACID 1 MG in SYRINGE 9.8 ML IV SCH (09:05)
[2023-06-27] MEDS: THIAMINE HCL 200 MG in SODIUM CHLORIDE 0.9% 50 ML IV SCH ×2 (09:05→20:39)
[2023-06-27] MEDS: haloperidoL 0.5 MG TAB PO SCH ×2 (09:15→20:38)
[2023-06-27] MEDS: LORazepam 2 MG/1 ML VIAL IV PRN ×2 (11:32→12:36)
--- NOTE | 2023-06-27 13:19 | Hospitalist Progress Note ---
Date of Service June 27, 2023 Assessment & Plan (1) Acute encephalopathy: Plan: remains confused, agitated, combative at times continues to require IV ativan per AWSS protocol yesterday he was lethargic - more lethargic than today - haldol dose was reduced to 2.5mg BID this am in response to that lethargy current mental status likely a combination of etoh withdrawal +/- a Wernicke's type state +/- delirium in the setting of baseline dementia vs combination of factors ?RLL rales on exam; certainly at risk of aspiration - will check pCXR to ensure no developing pneumonia which could cause metabolic encephalopathy check a KUB x-ray -- r/o impaction contributing to his current state in 2021 had a protracted hospitalization marked by prolonged etoh withdrawal period followed by weeks of confusion appreciate psychiatry involvement & recs B1 level is pending cont thiamine 200mg BID IV CT head neg at time of admission without IV ativan, haldol, etc he has been combative with staff, spitting, etc thus, continue restraints but remove when able (restraint order renewed this am) (2) Alcohol withdrawal: Plan: AWSS protocol appreciate psych assistance see #1 above cont thiamine/folate supplementation telemetry IV fluids - Na 144 - change NS to 1/2 NSS (same rate) (3) Chronic alcoholism with psychosis with hallucinations: Plan: per previous discussions with the pt's family he has had intermittent psychotic symptoms over the years some of this was in the setting of etoh abuse he also has remote h/o drug abuse he continues to drink etoh, and had a detectable etoh level upon admission here psych consult requested defer med management to them (antipsychotics, etc) checked B1 - pending - s/p high-dose thiamine x 48 hours; now thiamine 200mg IV BID checked B12 - about 400 replace low thyroid - synthroid 50mcg daily; if unable to take by mouth give IV every 2-3 days likely with etoh withdrawal as in #1 above (4) Cognitive impairment: Plan: in 2021 had a 6+ week hospital stay in which he went through suspected etoh wi thdrawal, which was then followed by protracted course of severe confusion by the end of that stay his mentation improved to the point where it was felt he had medical decision making capacity subsequently there has been concern based on the record that he has a developing dementia process vs other I don't believe a formal neurocognitive eval has ever been done now with severe encephalopathy (5) Learning disabilities: Plan: I have cared for Mr Dottie on previous admissions His sister has reported he was diagnosed with learning disabilities early in life Always struggled in school Suggestive of LD (6) Hypomagnesemia: Plan: replaced resolved repeat level today wnl (7) Hypertension: Plan: not reliably taking PO meds thus, schedule IV lopressor 5mg q6h if additional BP control is needed will use IV hydralazine (8) Hepatitis C: Plan: 12/2021 HepC ab + HepC RNA markedly elevated c/w active HepC infection ideally he see ID and/or GI after discharge to discuss definitive Rx with ongoing etoh abuse, however, uncertain if he is candidate recent ammonia level is wnl repeat ammonia level today again wnl (9) Elevated AST (SGOT): Plan: likely 2nd to chronic HepC infection previous liver imaging 08/2022 without cirrhosis repeat LFTs in am for stability (10) Hypothyroidism: Plan: previous TSH levels have been mildly high current TSH level also high FT4 borderline low in light of cognitive issues will replace start synthroid 50mcg daily repeat TSH 6 weeks (11) DVT prophylaxis: Plan: lovenox 40mg daily (12) Hypokalemia: Plan: improved with adding KCL to IV fluids cont such Plan contacted pt's daughter by phone evening of 06/26 - no answer, left message on voicemail will try again next 1-2 days Admission and Anticipated Discharge Date Admission Date: June 22, 2023 Subjective per staff remains agitated, altered during breakfast, lunch, and medication admin time he would spit these items out told staff to "f--- off" this am during my visit he opened his eyes slightly to his name being called he told me he was in the hospital when I asked him where he was could not tell me the year denied pain denied headache stated he was hungry and thirsty his speech is severely slurred - can hardly understand what he is trying to say (he just says 1 word at a time) tele overnight wnl patient continues to require soft limb restraints for arms due to agitation, aggressive behavior, spitting, risk of injury to self, etc soft limb restraint order renewed this am Review of Systems Review of Systems: Unobtainable due to cognitive status Physical Exam Physical Exam: gen - somnolent, opens eyes briefly, pulling his arms back/forth due to restraints, severely slurred speech; tachypneic eyes - PERRL, pupils 3mm b/l and reactive; crusting of eyes a little better mouth - MM very dry heart - RRR, s1 s2, no murmur lungs - CTA left lung, decreased BS with slight rales R base, tachypneic abd - soft NT BS+ ND; no HSM ext - no edema, pulses 2+ b/l psych - lethargic, oriented to person and place but not time neuro - squeezes both hands to command; wiggles all toes to command; no facial droop musculo - b/l wrists remain in soft limb restraints Results & Data Results & Data Vital Signs (Past 12 Hours) Vital Signs Temp Pulse Pulse Resp BP BP BP 06/27/23 12:31 36.8 C 06/27/23 12:31 85 171/98 H 06/27/23 11:30 36.5 C 88 172/102 H 06/27/23 09:00 90 06/27/23 09:00 06/27/23 09:34 78 155/91 H 06/27/23 09:02 36.4 C L 72 18 163/88 H 06/27/23 05:51 76 06/27/23 06:27 158/94 H 06/27/23 05:30 187/102 H 06/27/23 04:56 79 181/104 H 06/27/23 04:41 80 06/27/23 02:00 06/27/23 04:35 36.7 C 80 24 167/104 H 06/27/23 03:00 36.8 C 80 20 152/98 H Pulse Ox Pulse Ox O2 Del Method O2 Del Method 06/27/23 12:31 06/27/23 12:31 06/27/23 11:30 94 Room Air 06/27/23 09:00 06/27/23 09:00 Room Air 06/27/23 09:34 06/27/23 09:02 95 Room Air 06/27/23 05:51 06/27/23 06:27 06/27/23 05:30 06/27/23 04:56 06/27/23 04:41 06/27/23 02:00 93 Room Air 10/15/23 04:35 93 Room Air 06/27/23 03:00 94 Room Air Laboratory Results Laboratory Results - last 24 hr 06/27/23 06/27/23 07:22 07:46 Sodium 144 Potassium 3.5 Chloride 114 H Carbon Dioxide 24 Anion Gap 6 BUN 15 Creatinine 0.69 Est Cr Clr Drug Dosing 112.4 Est GFR ( Amer) 112.3 Est GFR (Non-Af Amer) 96.9 BUN/Creatinine Ratio 21.7 H Glucose 120 H Calcium 9.1 Phosphorus 3.4 Magnesium 1.8 Ammonia 29.0 PG Care Time/CCT Total # of Minutes Spent Total Time Spent with Patient: Total time spent is greater than 50% in coordination of care (as documented) at patient's floor/unit and/or counseling patient: Coding Level of Care Code 41955 SUB INP/OBS CARE 2/35MIN Diagnoses Acute encephalopathy G93.40 Alcohol withdrawal F10.939 Chronic alcoholism with psychosis with hallucinations F10.251 Cognitive impairment R41.89 Learning disabilities F81.9 Hypomagnesemia E83.42 Hypertension I10 Hepatitis C B19.20 Elevated AST (SGOT) R74.01 Hypothyroidism E03.9 DVT prophylaxis Z29.9 Hypokalemia E87.6
[2023-06-27] MEDS: D5W AND 1/2NSS + 20MEQ KCL 20 MEQ/1,000 ML BAG IV SCH ×2 (14:30→23:18)
--- NOTE | 2023-06-27 21:22 | XRay Report ---
XR KUB/Abdomen 1 view CLINICAL HISTORY: altered; fecal impaction? TECHNIQUE: 1 view of the abdomen was obtained. Comparison: Comparison is made to chest radiograph 01/06/2022 FINDINGS: Lung bases are unremarkable. Degenerative changes are seen in the visualized skeleton. The bowel gas pattern is nonobstructive. Small stool burden is seen. IMPRESSION: Small stool burden with no evidence of fecal impaction. ACT 112: Negative or not required by law. Electronically signed by: Jose Grimm M.D. 06/27/2023 9:21 PM
--- NOTE | 2023-06-27 21:34 | XRay Report ---
XR chest 1V portable CLINICAL HISTORY: RLL rales; ?pneumonia TECHNIQUE: Single frontal radiograph of the chest was obtained. Comparison: Comparison is made to chest radiograph 06/22/2023 FINDINGS: No lines and tubes are seen. Cardiomegaly is noted. Prominence and cephalization of the vasculature i s seen. No evidence of pleural effusion or pneumothorax. IMPRESSION: Cardiomegaly and mild pulmonary edema. No evidence of pneumonia. ACT 112: Negative or not required by law. Electronically signed by: Jose Grimm M.D. 06/27/2023 9:31 PM
[2023-06-28] MEDS: LORazepam 2 MG/1 ML VIAL IV PRN ×2 (02:42→06:10)
[2023-06-28] MEDS: METOPROLOL TARTRATE 1 MG/ML VIAL IV SCH ×3 (06:04→17:15)
[2023-06-28] MEDS: LEVOTHYROXINE SODIUM 50 MCG TABLET PO SCH (06:26)
[2023-06-28 07:15] LABS: Albumin Globulin Ratio 1.2 (0.9-2); Albumin Level 3.8 gm/dl (3.4-5.0); BUN Creatinine Ratio 13.8 (10-20); Bilirubin,Total 1.5 mg/dl (0.2-1.0); Calcium 9.2 mg/dl (8.6-10.3); Creatinine Clr Calc Pharmacy 133.2 ml/min; Est GFR (African American) 120.6 ml/min; Globulin 3.3 gm/dl (2.5-4.0); Potassium 3.5 mmol/L (3.5-5.1); Total Protein 7.1 gm/dl (6.0-8.3)
[2023-06-28 07:26] LABS: Hematocrit (blood only) 45.6 % (42.0-52.0); Mean Corpuscular Hemoglobin 29.2 pg (25.0-34.0); Mean Corpuscular Hgb Conc 32.9 g/dL (32.0-36.0); Mean Corpuscular Volume 88.9 fL (80.0-100.0); Mean Platelet Volume 12.5 fL (9.4-12.4); Platelet Count 147 K/uL (130-400); RDW Coefficient of Variation 14.1 % (11.5-14.5); RDW Standard Deviation 46.4 fL (36.4-46.3); Red Blood Count 5.13 M/uL (4.70-6.10); White Blood Count 6.27 K/ul (4.8-10.8)
[2023-06-28] MEDS: CIPROFLOXACIN HCL 0.3% OP SOLN 2.5 ML BTL OPB SCH ×4 (08:48→21:01)
[2023-06-28] MEDS: FOLIC ACID 1 MG in SYRINGE 9.8 ML IV SCH (08:49)
[2023-06-28] MEDS: ENOXAPARIN INJ 40 MG/0.4 ML SYR SQ SCH (08:49)
[2023-06-28] MEDS: THIAMINE HCL 200 MG in SODIUM CHLORIDE 0.9% 50 ML IV SCH ×2 (08:49→21:00)
[2023-06-28] MEDS: haloperidoL 0.5 MG TAB PO SCH ×2 (08:51→21:06)
[2023-06-28] MEDS: D5W AND 1/2NSS + 20MEQ KCL 20 MEQ/1,000 ML BAG IV SCH ×2 (09:53→20:59)
[2023-06-28] MEDS: hydrALAZINE HCL 20 MG/ML VIAL IV SCH ×3 (10:13→23:23)
--- NOTE | 2023-06-28 15:32 | Psychiatric Progress Note ---
Date of Service June 28, 2023 Impression / Recommendations Impression 68 yo male with recurrent hospitalizations for ETOH withdrawal with little information re: intra-episode functioning but seemingly with significant cognitive issues and/or hallucinations at baseline given his chronic alcohol use disorder as well as periods of prolonged delirium in context of alcohol withdrawal vs intoxication based on prior admissions. Difficult to fully differentiate primary dx as Wernicke's encephalopathy/Korsakoff's psychosis as he is so acutely ill when admitted and may also have degree of progressive decline superimposed on baseline learning issues. Course of illness suggests alcohol induced rather than primary psychotic disorder though sister described some schizoid personality. 06/28/2023: ongoing confusion with periods of intermittent agitation, does seem to respond to use of ativan IV per AWSS Overall, I spent a total of 25 minutes with this case, including review of chart, direct evaluation of the patient, coordination of care with hospitalist service, and documentation. (1) Acute encephalopathy: 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: Plan -Agree with haldol 2.5mg po BID -Agree with AWSS and ativan IV per scoring -For acute behavioral emergency: recommend use of ativan IV 2mg q4-6h prn for agitation as first line option. If non-responsive to this could consider use of haldol 5mg IM q6h prn (AVOID use of haldol IV given risk for QTc changes). Olanzapine 5mg IM q6h prn could be also be used for acute agitation but caution use of this as it CANNOT be given within 1 hour of IV or IM ativan use due to risk for fatal respiratory suppression. Interval History Identifying Information The patient is a 68-year-old male with a past medical history including hypertension, agitation, alcoholism and obesity who presented to the emergency department with AMS/hallucinations. Mr. Sinclair was last seen on consult service by Dr. Angulo earlier this year. Chief Complaint "Help...cheese". Subjective Subjective Patient was seen & assessed and interval progress reviewed. More sedated yesterday so haldol dose was reduced. Continues to have confusion and periods of intermittent agitation and aggression. Does seem to calm with use of IV ativan when needed based on AWSS. Physical Exam Psychiatric Orientation: alert and oriented to person; + not oriented to place and + not oriented to time Apperance: + disheveled Eye Contact: + poor eye contact Motor Behavior: no abnormal motor movements; n EPS Speech: + abnormal rate/rhythm/volume of speech (brief, garbled) Affect: + irritable affect Insight: + severely impaired insight Judgment: + severely impaired judgement Vital Signs (Past 24 Hours) Last Vital Signs Temp 36.6 C 06/28/23 12:04 Pulse 85 06/28/23 13:20 Resp 19 06/28/23 07:04 BP 161/79 H 06/28/23 13:20 Pulse Ox 93 06/28/23 12:04 O2 Del Method Room Air 06/28/23 12:04 Results & Data ([facility]) Laboratory Results Laboratory Results - last 24 hr 06/28/23 06/28/23 06:39 06:39 WBC 6.27 RBC 5.13 Hgb 15.0 Hct 45.6 MCV 88.9 MCH 29.2 MCHC 32.9 RDW Std Deviation 46.4 H RDW Coeff of Dutch 14.1 Plt Count 147 MPV 12.5 H Sodium 140 Potassium 3.5 Chloride 110 H Carbon Dioxide 22 Anion Gap 8 BUN 8 Creatinine 0.58 L Est Cr Clr Drug Dosing 133.2 Est GFR ( Amer) 120.6 Est GFR (Non-Af Amer) 104.0 BUN/Creatinine Ratio 13.8 Glucose 116 H Calcium 9.2 Total Bilirubin 1.5 H AST 52 H ALT 63 H Alkaline Phosphatase 66 Total Protein 7.1 Albumin 3.8 Globulin 3.3 Albumin/Globulin Ratio 1.2 Current Inpatient Medications Current Inpatient Medications: Current Inpatient Medications Acetaminophen (Acetaminophen 325 Mg Tab) 650 mg PO Q4H PRN PRN Reason: Pain or Fever Stop: 07/23/23 02:38 Amlodipine Besylate (Amlodipine Besylate 5 Mg Tab) 5 mg PO DAILY [facility] Stop: 07/24/23 08:59 Last Admin: 06/26/23 08:10 Dose: 5 mg Benztropine Mesylate (Benztropine Mesylate 1 Mg Tab) 1 mg PO Q6 PRN PRN Reason: EPS Stop: 07/24/23 17:59 Last Admin: 06/25/23 07:41 Dose: 1 mg Ciprofloxacin (Ciprofloxacin Hcl 0.3% Op Soln 2.5 Ml Btl) 1 drops OPB QID [facility] Stop: 07/07/23 08:59 Last Admin: 06/28/23 12:49 Dose: 1 drops Enoxaparin Sodium (Enoxaparin Inj 40 Mg/0.4 Ml Syr) 40 mg SQ Q24H [facility] Stop: 07/23/23 08:59 Last Admin: 06/28/23 08:49 Dose: 40 mg Haloperidol (Haloperidol 0.5 Mg Tab) 2.5 mg PO BID [facility] Stop: 07/27/23 08:59 Last Admin: 06/28/23 08:51 Dose: Not Given Hydralazine HCl (Hydralazine Hcl 20 Mg/Ml Vial) 5 mg IV Q8H [facility] Stop: 07/28/23 09:29 Last Admin: 06/28/23 10:13 Dose: 5 mg Folic Acid 1 mg/ Syringe 10 mls @ 5 mls/min IV QAM [facility] Stop: 07/23/23 08:59 Last Admin: 06/28/23 08:49 Dose: 5 mls/min Thiamine HCl 200 mg/ Sodium (Chloride) 52 mls @ 210 mls/hr IV BID [facility] Stop: 07/26/23 08:59 Last Infusion: 06/28/23 09:07 Dose: Infused Potassium Chloride/Dextrose/Sod Cl (D5w And 1/2nss + 20meq Kcl) 20 meq in 1,000 mls @ 100 mls/hr IV .Q10H [facility]; Protocol Stop: 07/27/23 13:29 Last Admin: 06/28/23 09:53 Dose: 100 mls/hr Levothyroxine Sodium (Levothyroxine Sodium 50 Mcg Tablet) 50 mcg PO DAILYBB [facility] Stop: 07/24/23 06:29 Last Admin: 06/28/23 06:26 Dose: Not Given Lorazepam (Lorazepam 2 Mg/1 Ml Vial) 2 mg IV UD PRN; Protocol PRN Reason: EtOH Withdrawal AWSS Score 8,9 Stop: 07/23/23 02:38 Last Admin: 06/28/23 06:10 Dose: 2 mg Lorazepam (Lorazepam 2 Mg/1 Ml Vial) 1 mg IV UD PRN; Protocol PRN Reason: EtOH Withdrawal AWSS Score 6,7 Stop: 07/23/23 02:38 Last Admin: 06/27/23 12:36 Dose: 1 mg Metoprolol Succinate (Metoprolol Succ 50mg Ext Rel Tab) 50 mg PO DAILY [facility] Stop: 07/23/23 08:59 Last Admin: 06/26/23 08:11 Dose: 50 mg Metoprolol Tartrate (Metoprolol Tartrate 1 Mg/Ml Vial) 5 mg IV Q5M PRN PRN Reason: Tachycardia Stop: 07/23/23 02:38 Last Admin: 06/27/23 05:15 Dose: 5 mg Metoprolol Tartrate (Metoprolol Tartrate 1 Mg/Ml Vial) 5 mg IV Q6 [facility] Stop: 07/27/23 07:19 Last Admin: 06/28/23 12:47 Dose: 5 mg Olanzapine (Olanzapine 10 Mg/2.1 Ml Sdv) 5 mg IM Q6H PRN PRN Reason: Agitation Stop: 07/23/23 02:38 Last Admin: 06/24/23 10:26 Dose: 5 mg Ondansetron HCl (Ondansetron Inj 2 Mg/Ml 2 Ml Vial) 4 mg IV Q6H PRN PRN Reason: Nausea Stop: 07/23/23 02:38
--- NOTE | 2023-06-28 23:02 | Hospitalist Progress Note ---
Date of Service June 28, 2023 Assessment & Plan (1) Acute encephalopathy: Plan: remains confused, agitated, combative at times does not follow commands not eating/drinking; just spitting out such along with meds continues to require IV ativan per AWSS protocol continues to require restraints for the safety of staff members as well as his safety; restraints renewed for today attempts at removing restraints have not been successful current mental status likely a combination of etoh withdrawal +/- a Wernicke's type state +/- delirium in the setting of baseline dementia vs combination of factors in 2021 had a protracted hospitalization marked by prolonged etoh withdrawal period followed by weeks of confusion appreciate psychiatry involvement & recs B1 level is pending cont thiamine 200mg BID IV CT head neg at time of admission (2) Alcohol withdrawal: Plan: AWSS protocol appreciate psych assistance see #1 above cont thiamine/folate supplementation telemetry cont IVF (3) Chronic alcoholism with psychosis with hallucinations: Plan: per previous discussions with the pt's family he has had intermittent psychotic symptoms over the years some of this was in the setting of etoh abuse he also has remote h/o drug abuse he continues to drink etoh, and had a detectable etoh level upon admission here psych consult appreciated; recs welcomed defer med management to them (antipsychotics, ativan, etc) checked B1 - pending - s/p high-dose thiamine x 48 hours; now thiamine 200mg IV BID checked B12 - about 400 replace low thyroid - synthroid 50mcg daily; if unable to take by mouth give IV every 2-3 days likely with etoh withdrawal as in #1 above (4) Cognitive impairment: Plan: in 2021 had a 6+ week hospital stay in which he went through suspected etoh withdrawal, which was then followed by protracted course of severe confusion by the end of that stay his mentation improved to the point where it was felt he had medical decision making capacity subsequently there has been concern based on the record that he has a developing dementia process vs other I don't believe a formal neurocognitive eval has ever been done (5) Learning disabilities: Plan: I have cared for Mr Sinclair on previous admissions His sister has reported he was diagnosed with learning disabilities early in life Always struggled in school, etc Suggestive of LD (6) Hypomagnesemia: Plan: replaced resolved (7) Hypertension: Plan: not reliably taking PO meds thus, scheduled IV lopressor 5mg q6h BPs still high despite such - thus, add hydralazine IV 5mg q8h (8) Hepatitis C: Plan: 12/2021 HepC ab + HepC RNA markedly elevated c/w active HepC infection ideally he see ID and/or GI after discharge to discuss definitive Rx with ongoing etoh abuse, however, uncertain if he is candidate ammonia levels have been wnl (9) Elevated AST (SGOT): Plan: likely 2nd to chronic HepC infection previous liver imaging 08/2022 without cirrhosis repeat LFTs today mildly high but stable (10) Hypothyroidism: Plan: previous TSH levels have been mildly high current TSH level also high FT4 borderline low in light of cognitive issues will replace started synthroid 50mcg daily -- but not taking PO reliably -- may need to give IV every 2-3 days repeat TSH 6-8 weeks (11) DVT prophylaxis: Plan: lovenox 40mg daily (12) Hypokalemia: Plan: resolved with adding KCL to IV fluids cont such Plan mild conjunctivitis - cipro eye drops qid x 7 days (use in both eyes) contacted pt's daughter by phone evening of 06/26 - no answer, left message on voicemail Admission and Anticipated Discharge Date Admission Date: June 22, 2023 Subjective continues with severe agitation with attempting to remove the restraints he pulls at his gown, staff member's arms, his heart monitor, etc he tries to sit up in bed - does not follow commands spitting out water/food when attempting to feed him not taking PO meds either during my visit he was not following commands he was not answering questions just staring ahead Review of Systems Review of Systems: Unobtainable due to cognitive status Physical Exam Physical Exam: gen - altered; does not follow commands, pulling at his heart monitor leads, attempting to get out of his restraints; did not speak or say any words today in response to questions eyes - PERRL, pupils 3mm b/l and reactive; crusting of eyes a little better on right, persists on left mouth - MM dry heart - RRR, s1 s2, no murmur lungs - CTA left lung, decreased BS right base abd - soft NT BS+ ND; no HSM ext - no edema, pulses 2+ b/l psych - severely altered; a/o x 0 musculo - b/l wrists remain in soft limb restraints neuro - moves all 4 limbs spontaneously Results & Data Results & Data Vital Signs (Past 12 Hours) Vital Signs Temp Pulse Pulse Pulse Resp BP BP 06/28/23 22:49 93 H 06/28/23 21:51 97 H 06/28/23 21:41 105 H 06/28/23 19:57 36.3 C L 89 18 167/102 H 06/28/23 18:14 92 H 06/28/23 17:15 84 149/107 H 06/28/23 15:25 36.4 C L 84 22 149/107 H 06/28/23 13:20 85 161/79 H 06/28/23 12:47 90 166/91 H 06/28/23 12:04 36.6 C 90 166/91 H Pulse Ox O2 Del Method 06/28/23 22:49 06/28/23 21:51 06/28/23 21:41 06/28/23 19:57 97 Room Air 06/28/23 18:14 06/28/23 17:15 06/28/23 15:25 96 Room Air 06/28/23 13:20 06/28/23 12:47 06/28/23 12:04 93 Room Air Laboratory Results Laboratory Results - last 24 hr 06/28/23 06/28/23 06:39 06:39 WBC 6.27 RBC 5.13 Hgb 15.0 Hct 45.6 MCV 88.9 MCH 29.2 MCHC 32.9 RDW Std Deviation 46.4 H RDW Coeff of Dutch 14.1 Plt Count 147 MPV 12.5 H Sodium 140 Potassium 3.5 Chloride 110 H Carbon Dioxide 22 Anion Gap 8 BUN 8 Creatinine 0.58 L Est Cr Clr Drug Dosing 133.2 Est GFR ( Amer) 120.6 Est GFR (Non-Af Amer) 104.0 BUN/Creatinine Ratio 13.8 Glucose 116 H Calcium 9.2 Total Bilirubin 1.5 H AST 52 H ALT 63 H Alkaline Phosphatase 66 Total Protein 7.1 Albumin 3.8 Globulin 3.3 Albumin/Globulin Ratio 1.2 PG Care Time/CCT Total # of Minutes Spent Total Time Spent with Patient: Total time spent is greater than 50% in coordination of care (as documented) at patient's floor/unit and/or counseling patient: Coding Level of Care Code 50855 SUB INP/OBS CARE 1/25MIN Diagnoses Acute encephalopathy G93.40 Alcohol withdrawal F10.939 Chronic alcoholism with psychosis with hallucinations F10.251 Cognitive impairment R41.89 Learning disabilities F81.9 Hypomagnesemia E83.42 Hypertension I10 Hepatitis C B19.20 Elevated AST (SGOT) R74.01 Hypothyroidism E03.9 DVT prophylaxis Z29.9 Hypokalemia E87.6
[2023-06-29] MEDS: METOPROLOL TARTRATE 1 MG/ML VIAL IV SCH ×4 (00:02→17:12)
[2023-06-29] MEDS: LEVOTHYROXINE SODIUM 50 MCG TABLET PO SCH (05:23)
[2023-06-29] MEDS: LORazepam 2 MG/1 ML VIAL IV PRN ×2 (05:32→16:14)
[2023-06-29] MEDS: hydrALAZINE HCL 20 MG/ML VIAL IV SCH ×3 (05:43→20:33)
[2023-06-29 08:30] LABS: BUN Creatinine Ratio 15.8 (10-20); Calcium 9.4 mg/dl (8.6-10.3); Creatinine Clr Calc Pharmacy 135.3 ml/min; Est GFR (African American) 121.4 ml/min; Est GFR (Non-African American) 104.8 ml/min; Potassium 3.5 mmol/L (3.5-5.1)
[2023-06-29] MEDS: D5W AND 1/2NSS + 20MEQ KCL 20 MEQ/1,000 ML BAG IV SCH ×2 (08:34→17:11)
[2023-06-29] MEDS: ENOXAPARIN INJ 40 MG/0.4 ML SYR SQ SCH (08:35)
[2023-06-29] MEDS: FOLIC ACID 1 MG in SYRINGE 9.8 ML IV SCH (08:35)
[2023-06-29] MEDS: CIPROFLOXACIN HCL 0.3% OP SOLN 2.5 ML BTL OPB SCH ×4 (08:35→20:33)
[2023-06-29] MEDS: haloperidoL 0.5 MG TAB PO SCH (08:36)
[2023-06-29] MEDS: THIAMINE HCL 200 MG in SODIUM CHLORIDE 0.9% 50 ML IV SCH ×2 (08:36→20:33)
--- NOTE | 2023-06-29 18:15 | Hospitalist Progress Note ---
Date of Service June 29, 2023 Assessment & Plan (1) Acute encephalopathy: Plan: remains confused, agitated, combative at times does not follow commands not eating/drinking; just spitting out such along with meds continues to require IV ativan per AWSS protocol continues to require restraints for the safety of staff members as well as his safety; restraints renewed for today attempts at removing restraints have not been successful current mental status likely a combination of etoh withdrawal +/- a Wernicke's type state +/- delirium in the setting of baseline dementia vs combination of factors in 2021 had a protracted hospitalization marked by prolonged etoh withdrawal period followed by weeks of confusion appreciate psychiatry involvement & recs B1 level is within normal limit cont thiamine 200mg BID IV CT head neg at time of admission (2) Alcohol withdrawal: Plan: AWSS protocol appreciate psych assistance see #1 above cont thiamine/folate supplementation telemetry cont IVF (3) Chronic alcoholism with psychosis with hallucinations: Plan: per previous discussions with the pt's family he has had intermittent psychotic symptoms over the years some of this was in the setting of etoh abuse he also has remote h/o drug abuse he continues to drink etoh, and had a detectable etoh level upon admission here psych consult appreciated; recs welcomed defer med management to them (antipsychotics, ativan, etc) checked B1 -within normal limits checked B12 - about 400 replace low thyroid - synthroid 50mcg daily; if unable to take by mouth give IV every 2-3 days likely with etoh withdrawal as in #1 above (4) Cognitive impairment: Plan: in 2021 had a 6+ week hospital stay in which he went through suspected etoh withdrawal, which was then followed by protracted course of severe confusion by the end of that stay his mentation improved to the point where it was felt he had medical decision making capacity subsequently there has been concern based on the record that he has a developing dementia process vs other I don't believe a formal neurocognitive eval has ever been done (5) Learning disabilities: Plan: Per Dr. Tony, his sister has reported he was diagnosed with learning disabilities early in life Always struggled in school, etc Suggestive of LD (6) Hypomagnesemia: Plan: replaced resolved (7) Hypertension: Plan: not reliably taking PO meds thus, scheduled IV lopressor 5mg q6h BPs still high despite such - thus, added hydralazine IV 5mg q8h (8) Hepatitis C: Plan: 12/2021 HepC ab + HepC RNA markedly elevated c/w active HepC infection ideally he see ID and/or GI after discharge to discuss definitive Rx with ongoing etoh abuse, however, uncertain if he is candidate ammonia levels have been wnl (9) Elevated AST (SGOT): Plan: likely 2nd to chronic HepC infection previous liver imaging 08/2022 without cirrhosis repeat LFTs today mildly high but stable (10) Hypothyroidism: Plan: previous TSH levels have been mildly high current TSH level also high FT4 borderline low in light of cognitive issues will replace started synthroid 50mcg daily -- but not taking PO reliably -- may need to give IV every 2-3 days repeat TSH 6-8 weeks (11) DVT prophylaxis: Plan: lovenox 40mg daily (12) Hypokalemia: Plan: resolved with adding KCL to IV fluids cont such Plan mild conjunctivitis - cipro eye drops qid x 7 days (use in both eyes) Admission and Anticipated Discharge Date Admission Date: June 22, 2023 Subjective Patient continues with severe agitation. Not following commands. Not answering questions. Review of Systems Review of Systems: Unobtainable due to cognitive status Physical Exam Physical Exam: General: Altered. Does not follow commands. Attempting to get out of restraints. Appears sweaty Heart: S1, S2/regular rate and rhythm, no murmur rubs or gallops Lungs: Clear to auscultation bilaterally. Normal effort Abdomen: Soft/nontender/nondistended. No hepatosplenomegaly Extremities: No clubbing/cyanosis. No edema Behavior: Unable to assess Results & Data Results & Data Vital Signs (Past 12 Hours) Vital Signs Temp Pulse Pulse Resp BP Pulse Ox O2 Del Method 06/29/23 17:57 79 06/29/23 15:24 36.7 C 107 H 18 180/107 H 94 Room Air 06/29/23 12:52 98 H 06/29/23 11:57 36.7 C 108 H 18 171/106 H 94 Room Air 06/29/23 08:00 Room Air 06/29/23 07:41 36.5 C 111 H 18 206/125 H 94 Room Air Laboratory Results Abnormal lab results 06/29/23 Range/Units 07:28 Chloride 110 H (98-107) mmol/L Carbon Dioxide 20 L (21-32) mmol/L Creatinine 0.57 L (0.6-1.4) mg/dl Glucose 138 H (70-99(Fasting)) mg/dl PG Care Time/CCT Total # of Minutes Spent Total Time Spent with Patient: Total time spent is greater than 50% in coordination of care (as documented) at patient's floor/unit and/or counseling patient: Coding Level of Care Code 08967 SUB INP/OBS CARE 2/35MIN Diagnoses Acute encephalopathy G93.40 Alcohol withdrawal F10.939 Chronic alcoholism with psychosis with hallucinations F10.251 Cognitive impairment R41.89 Learning disabilities F81.9 Hypomagnesemia E83.42 Hypertension I10 Hepatitis C B19.20 Elevated AST (SGOT) R74.01 Hypothyroidism E03.9 DVT prophylaxis Z29.9 Hypokalemia E87.6
[2023-06-29] MEDS: haloperidoL 5 MG TAB PO SCH (20:33)
[2023-06-30] MEDS: METOPROLOL TARTRATE 1 MG/ML VIAL IV SCH ×5 (00:05→23:27)
[2023-06-30] MEDS: D5W AND 1/2NSS + 20MEQ KCL 20 MEQ/1,000 ML BAG IV SCH ×3 (03:20→23:27)
[2023-06-30] MEDS: hydrALAZINE HCL 20 MG/ML VIAL IV SCH ×3 (05:06→21:04)
[2023-06-30] MEDS: LEVOTHYROXINE SODIUM 50 MCG TABLET PO SCH (05:07)
[2023-06-30 07:39] LABS: BUN Creatinine Ratio 16.7 (10-20); Calcium 9.8 mg/dl (8.6-10.3); Creatinine Clr Calc Pharmacy 143.4 ml/min; Est GFR (African American) 124.2 ml/min; Est GFR (Non-African American) 107.1 ml/min; Potassium 3.8 mmol/L (3.5-5.1)
[2023-06-30] MEDS: THIAMINE HCL 200 MG in SODIUM CHLORIDE 0.9% 50 ML IV SCH ×2 (08:07→21:03)
[2023-06-30] MEDS: LORazepam 2 MG/1 ML VIAL IV PRN ×2 (08:09→17:54)
[2023-06-30] MEDS: CIPROFLOXACIN HCL 0.3% OP SOLN 2.5 ML BTL OPB SCH ×4 (08:09→21:03)
[2023-06-30] MEDS: ENOXAPARIN INJ 40 MG/0.4 ML SYR SQ SCH (08:09)
[2023-06-30] MEDS: haloperidoL 5 MG TAB PO SCH ×2 (08:10→21:02)
[2023-06-30] MEDS: FOLIC ACID 1 MG in SYRINGE 9.8 ML IV SCH (08:10)
--- NOTE | 2023-06-30 16:53 | Hospitalist Progress Note ---
Date of Service June 30, 2023 Assessment & Plan (1) Acute encephalopathy: Plan: remains confused, agitated, combative at times does not follow commands not eating/drinking; just spitting out such along with meds continues to require IV ativan per AWSS protocol continues to require restraints for the safety of staff members as well as his safety; restraints renewed for today attempts at removing restraints have not been successful current mental status likely a combination of etoh withdrawal +/- a Wernicke's type state +/- delirium in the setting of baseline dementia vs combination of factors in 2021 had a protracted hospitalization marked by prolonged etoh withdrawal period followed by weeks of confusion appreciate psychiatry involvement & recs B1 level is within normal limit cont thiamine 200mg BID IV CT head neg at time of admission (2) Alcohol withdrawal: Plan: AWSS protocol appreciate psych assistance see #1 above cont thiamine/folate supplementation telemetry cont IVF (3) Chronic alcoholism with psychosis with hallucinations: Plan: per previous discussions with the pt's family he has had intermittent psychotic symptoms over the years some of this was in the setting of etoh abuse he also has remote h/o drug abuse he continues to drink etoh, and had a detectable etoh level upon admission here psych consult appreciated; recs welcomed defer med management to them (antipsychotics, ativan, etc) checked B1 -within normal limits checked B12 - about 400 replace low thyroid - synthroid 50mcg daily; if unable to take by mouth give IV every 2-3 days likely with etoh withdrawal as in #1 above (4) Cognitive impairment: Plan: in 2021 had a 6+ week hospital stay in which he went through suspected etoh withdrawal, which was then followed by protracted course of severe confusion by the end of that stay his mentation improved to the point where it was felt he had medical decision making capacity subsequently there has been concern based on the record that he has a developing dementia process vs other I don't believe a formal neurocognitive eval has ever been done (5) Learning disabilities: Plan: Per Dr. Tony, his sister has reported he was diagnosed with learning disabilities early in life Always struggled in school, etc Suggestive of LD (6) Hypomagnesemia: Plan: replaced resolved (7) Hypertension: Plan: not reliably taking PO meds thus, scheduled IV lopressor 5mg q6h BPs still high despite such - thus, added hydralazine IV 5mg q8h (8) Hepatitis C: Plan: 12/2021 HepC ab + HepC RNA markedly elevated c/w active HepC infection ideally he see ID and/or GI after discharge to discuss definitive Rx with ongoing etoh abuse, however, uncertain if he is candidate ammonia levels have been wnl (9) Elevated AST (SGOT): Plan: likely 2nd to chronic HepC infection previous liver imaging 08/2022 without cirrhosis (10) Hypothyroidism: Plan: previous TSH levels have been mildly high current TSH level also high FT4 borderline low in light of cognitive issues will replace started synthroid 50mcg daily -- but not taking PO reliably -- may need to give IV every 2-3 days repeat TSH 6-8 weeks (11) DVT prophylaxis: Plan: lovenox 40mg daily (12) Hypokalemia: Plan: resolved with adding KCL to IV fluids cont such Plan mild conjunctivitis - cipro eye drops qid x 7 days (use in both eyes) Admission and Anticipated Discharge Date Admission Date: June 22, 2023 Subjective per nurse, patient is still withdrawing. MALGORZATA score was in the tens today. Was given a dose of Ativan a little bit ago. Review of Systems Review of Systems: Unobtainable due to cognitive status Physical Exam Physical Exam: General: Altered. Does not follow commands. Attempting to get out of restraints. Appears sweaty Heart: S1, S2/regular rate and rhythm, no murmur rubs or gallops Lungs: Clear to auscultation bilaterally. Normal effort Abdomen: Soft/nontender/nondistended. No hepatosplenomegaly Extremities: No clubbing/cyanosis. No edema Behavior: Unable to assess Results & Data Results & Data Vital Signs (Past 12 Hours) Vital Signs Temp Pulse Pulse Resp BP BP Pulse Ox 06/30/23 15:30 36.5 C 88 22 167/96 H 96 06/30/23 14:26 87 163/97 H 06/30/23 13:58 82 06/30/23 13:34 99 H 188/108 H 06/30/23 11:29 36.6 C 91 H 18 159/90 H 96 06/30/23 08:00 06/30/23 08:00 36.8 C 99 H 18 168/89 H 96 06/30/23 07:46 36.5 C 101 H 16 185/118 H 96 06/30/23 05:18 92 H 10/18/23 05:08 101 H O2 Del Method 06/30/23 15:30 Room Air 06/30/23 14:26 06/30/23 13:58 06/30/23 13:34 06/30/23 11:29 Room Air 06/30/23 08:00 Room Air 06/30/23 08:00 Room Air 06/30/23 07:46 Room Air 06/30/23 05:18 06/30/23 05:08 Laboratory Results Abnormal lab results 06/30/23 Range/Units 06:59 Chloride 109 H (98-107) mmol/L Creatinine 0.54 L (0.6-1.4) mg/dl Glucose 114 H (70-99(Fasting)) mg/dl PG Care Time/CCT Total # of Minutes Spent Total Time Spent with Patient: Total time spent is greater than 50% in coordination of care (as documented) at patient's floor/unit and/or counseling patient: Coding Level of Care Code 25500 SUB INP/OBS CARE 2/35MIN Diagnoses Acute encephalopathy G93.40 Alcohol withdrawal F10.939 Chronic alcoholism with psychosis with hallucinations F10.251 Cognitive impairment R41.89 Learning disabilities F81.9 Hypomagnesemia E83.42 Hypertension I10 Hepatitis C B19.20 Elevated AST (SGOT) R74.01 Hypothyroidism E03.9 DVT prophylaxis Z29.9 Hypokalemia E87.6
[2023-07-01] MEDS: LORazepam 2 MG/1 ML VIAL IV PRN ×2 (05:48→20:11)
[2023-07-01] MEDS: METOPROLOL TARTRATE 1 MG/ML VIAL IV SCH ×4 (05:50→23:54)
[2023-07-01] MEDS: hydrALAZINE HCL 20 MG/ML VIAL IV SCH ×3 (05:52→20:44)
[2023-07-01] MEDS: LEVOTHYROXINE SODIUM 50 MCG TABLET PO SCH (05:54)
[2023-07-01] MEDS: THIAMINE HCL 200 MG in SODIUM CHLORIDE 0.9% 50 ML IV SCH ×2 (07:57→20:16)
[2023-07-01] MEDS: haloperidoL 5 MG TAB PO SCH ×2 (07:57→20:20)
[2023-07-01] MEDS: FOLIC ACID 1 MG in SYRINGE 9.8 ML IV SCH (07:57)
[2023-07-01] MEDS: D5W AND 1/2NSS + 20MEQ KCL 20 MEQ/1,000 ML BAG IV SCH ×2 (07:57→16:58)
[2023-07-01] MEDS: ENOXAPARIN INJ 40 MG/0.4 ML SYR SQ SCH (07:58)
[2023-07-01] MEDS: CIPROFLOXACIN HCL 0.3% OP SOLN 2.5 ML BTL OPB SCH ×4 (07:58→20:16)
[2023-07-01 08:49] LABS: Calcium 9.5 mg/dl (8.6-10.3); Creatinine Clr Calc Pharmacy 129.1 ml/min; Est GFR (African American) 118.9 ml/min; Est GFR (Non-African American) 102.6 ml/min; Potassium 3.8 mmol/L (3.5-5.1)
--- NOTE | 2023-07-01 13:50 | Hospitalist Progress Note ---
Date of Service July 01, 2023 Assessment & Plan (1) Acute encephalopathy: Plan: remains confused, agitated, combative at times does not follow commands not eating/drinking; just spitting out such along with meds continues to require IV ativan per AWSS protocol continues to require restraints for the safety of staff members as well as his safety; restraints renewed for today attempts at removing restraints have not been successful current mental status likely a combination of etoh withdrawal +/- a Wernicke's type state +/- delirium in the setting of baseline dementia vs combination of factors in 2021 had a protracted hospitalization marked by prolonged etoh withdrawal period followed by weeks of confusion appreciate psychiatry involvement & recs B1 level is within normal limit cont thiamine 200mg BID IV CT head neg at time of admission (2) Alcohol withdrawal: Plan: AWSS protocol appreciate psych assistance see #1 above cont thiamine/folate supplementation telemetry cont IVF (3) Chronic alcoholism with psychosis with hallucinations: Plan: per previous discussions with the pt's family he has had intermittent psychotic symptoms over the years some of this was in the setting of etoh abuse he also has remote h/o drug abuse he continues to drink etoh, and had a detectable etoh level upon admission here psych consult appreciated; recs welcomed defer med management to them (antipsychotics, ativan, etc) checked B1 -within normal limits checked B12 - about 400 replace low thyroid - synthroid 50mcg daily; if unable to take by mouth give IV every 2-3 days likely with etoh withdrawal as in #1 above (4) Cognitive impairment: Plan: in 2021 had a 6+ week hospital stay in which he went through suspected etoh withdrawal, which was then followed by protracted course of severe confusion by the end of that stay his mentation improved to the point where it was felt he had medical decision making capacity subsequently there has been concern based on the record that he has a developing dementia process vs other I don't believe a formal neurocognitive eval has ever been done (5) Learning disabilities: Plan: Per Dr. Tony, his sister has reported he was diagnosed with learning disabilities early in life Always struggled in school, etc Suggestive of LD (6) Hypomagnesemia: Plan: replaced resolved (7) Hypertension: Plan: not reliably taking PO meds thus, scheduled IV lopressor 5mg q6h BPs still high despite such - thus, added hydralazine IV 5mg q8h (8) Hepatitis C: Plan: 12/2021 HepC ab + HepC RNA markedly elevated c/w active HepC infection ideally he see ID and/or GI after discharge to discuss definitive Rx with ongoing etoh abuse, however, uncertain if he is candidate ammonia levels have been wnl (9) Elevated AST (SGOT): Plan: likely 2nd to chronic HepC infection previous liver imaging 08/2022 without cirrhosis (10) Hypothyroidism: Plan: previous TSH levels have been mildly high current TSH level also high FT4 borderline low in light of cognitive issues will replace started synthroid 50mcg daily -- but not taking PO reliably -- may need to give IV every 2-3 days repeat TSH 6-8 weeks (11) DVT prophylaxis: Plan: lovenox 40mg daily (12) Hypokalemia: Plan: resolved with adding KCL to IV fluids cont such Plan mild conjunctivitis - cipro eye drops qid x 7 days (use in both eyes) Admission and Anticipated Discharge Date Admission Date: June 22, 2023 Subjective patient did not need as much Ativan dosing overnight. Review of Systems Review of Systems: Unobtainable due to cognitive status Physical Exam Physical Exam: General: Drowsy, arousable but not able to participate in a conversation. In restraints. Heart: S1, S2/regular rate and rhythm, no murmur rubs or gallops Lungs: Clear to auscultation bilaterally. Normal effort Abdomen: Soft/nontender/nondistended. No hepatosplenomegaly Extremities: No clubbing/cyanosis. No edema Behavior: Unable to assess Results & Data Results & Data Vital Signs (Past 12 Hours) Vital Signs Temp Pulse Pulse Resp BP BP BP 07/01/23 12:07 84 07/01/23 11:55 86 138/95 07/01/23 11:43 36.5 C 88 20 138/95 07/01/23 08:00 07/01/23 08:06 36.7 C 90 20 159/92 H 07/01/23 06:05 90 07/01/23 05:50 98 H 07/01/23 05:48 101 H 07/01/23 03:38 36.9 C 89 21 126/75 Pulse Ox O2 Del Method 07/01/23 12:07 07/01/23 11:55 07/01/23 11:43 97 Room Air 07/01/23 08:00 Room Air 10/19/23 08:06 95 Room Air 07/01/23 06:05 07/01/23 05:50 07/01/23 05:48 07/01/23 03:38 97 Room Air Laboratory Results Abnormal lab results 07/01/23 Range/Units 07:37 Chloride 110 H (98-107) mmol/L Glucose 110 H (70-99(Fasting)) mg/dl PG Care Time/CCT Total # of Minutes Spent Total Time Spent with Patient: Total time spent is greater than 50% in coordination of care (as documented) at patient's floor/unit and/or counseling patient: Coding Level of Care Code 12534 SUB INP/OBS CARE 2/35MIN Diagnoses Acute encephalopathy G93.40 Alcohol withdrawal F10.939 Chronic alcoholism with psychosis with hallucinations F10.251 Cognitive impairment R41.89 Learning disabilities F81.9 Hypomagnesemia E83.42 Hypertension I10 Hepatitis C B19.20 Elevated AST (SGOT) R74.01 Hypothyroidism E03.9 DVT prophylaxis Z29.9 Hypokalemia E87.6
[2023-07-01] MEDS: METOPROLOL TARTRATE 1 MG/ML VIAL IV PRN (20:16)
[2023-07-02] MEDS: D5W AND 1/2NSS + 20MEQ KCL 20 MEQ/1,000 ML BAG IV SCH ×3 (03:03→23:08)
[2023-07-02] MEDS: METOPROLOL TARTRATE 1 MG/ML VIAL IV PRN ×3 (04:10→06:43)
[2023-07-02] MEDS: LORazepam 2 MG/1 ML VIAL IV PRN (04:42)
[2023-07-02] MEDS: hydrALAZINE HCL 20 MG/ML VIAL IV SCH ×3 (05:32→20:45)
[2023-07-02] MEDS: METOPROLOL TARTRATE 1 MG/ML VIAL IV SCH ×4 (05:32→23:10)
[2023-07-02] MEDS: LEVOTHYROXINE SODIUM 50 MCG TABLET PO SCH (05:32)
[2023-07-02 07:28] LABS: BUN Creatinine Ratio 15.3 (10-20); Calcium 9.3 mg/dl (8.6-10.3); Creatinine Clr Calc Pharmacy 131.9 ml/min; Est GFR (African American) 119.7 ml/min; Est GFR (Non-African American) 103.3 ml/min; Potassium 3.6 mmol/L (3.5-5.1)
[2023-07-02] MEDS: CIPROFLOXACIN HCL 0.3% OP SOLN 2.5 ML BTL OPB SCH ×4 (07:53→20:44)
[2023-07-02] MEDS: haloperidoL 5 MG TAB PO SCH ×2 (07:54→20:44)
[2023-07-02] MEDS: ENOXAPARIN INJ 40 MG/0.4 ML SYR SQ SCH (07:54)
[2023-07-02] MEDS: THIAMINE HCL 200 MG in SODIUM CHLORIDE 0.9% 50 ML IV SCH ×2 (07:55→20:46)
[2023-07-02] MEDS: FOLIC ACID 1 MG in SYRINGE 9.8 ML IV SCH (07:55)
--- NOTE | 2023-07-02 13:04 | Hospitalist Progress Note ---
Date of Service July 02, 2023 Assessment & Plan (1) Acute encephalopathy: Plan: remains confused, agitated, combative at times does not follow commands not eating/drinking; just spitting out such along with meds continues to require IV ativan per AWSS protocol continues to require restraints for the safety of staff members as well as his safety; restraints renewed for today attempts at removing restraints have not been successful current mental status likely a combination of etoh withdrawal +/- a Wernicke's type state +/- delirium in the setting of baseline dementia vs combination of factors in 2021 had a protracted hospitalization marked by prolonged etoh withdrawal period followed by weeks of confusion appreciate psychiatry involvement & recs B1 level is within normal limit cont thiamine 200mg BID IV CT head neg at time of admission (2) Alcohol withdrawal: Plan: AWSS protocol appreciate psych assistance see #1 above cont thiamine/folate supplementation telemetry cont IVF (3) Chronic alcoholism with psychosis with hallucinations: Plan: per previous discussions with the pt's family he has had intermittent psychotic symptoms over the years some of this was in the setting of etoh abuse he also has remote h/o drug abuse he continues to drink etoh, and had a detectable etoh level upon admission here psych consult appreciated; recs welcomed defer med management to them (antipsychotics, ativan, etc) checked B1 -within normal limits checked B12 - about 400 replace low thyroid - synthroid 50mcg daily; if unable to take by mouth give IV every 2-3 days likely with etoh withdrawal as in #1 above (4) Cognitive impairment: Plan: in 2021 had a 6+ week hospital stay in which he went through suspected etoh withdrawal, which was then followed by protracted course of severe confusion by the end of that stay his mentation improved to the point where it was felt he had medical decision making capacity subsequently there has been concern based on the record that he has a developing dementia process vs other I don't believe a formal neurocognitive eval has ever been done (5) Learning disabilities: Plan: Per Dr. Tony, his sister has reported he was diagnosed with learning disabilities early in life Always struggled in school, etc Suggestive of LD (6) Hypomagnesemia: Plan: replaced resolved (7) Hypertension: Plan: not reliably taking PO meds thus, scheduled IV lopressor 5mg q6h BPs still high despite such - thus, added hydralazine IV 5mg q8h (8) Hepatitis C: Plan: 12/2021 HepC ab + HepC RNA markedly elevated c/w active HepC infection ideally he see ID and/or GI after discharge to discuss definitive Rx with ongoing etoh abuse, however, uncertain if he is candidate ammonia levels have been wnl (9) Elevated AST (SGOT): Plan: likely 2nd to chronic HepC infection previous liver imaging 08/2022 without cirrhosis (10) Hypothyroidism: Plan: previous TSH levels have been mildly high current TSH level also high FT4 borderline low in light of cognitive issues will replace started synthroid 50mcg daily -- but not taking PO reliably -- may need to give IV every 2-3 days repeat TSH 6-8 weeks (11) DVT prophylaxis: Plan: lovenox 40mg daily (12) Hypokalemia: Plan: resolved with adding KCL to IV fluids cont such Plan mild conjunctivitis - cipro eye drops qid x 7 days (use in both eyes) Admission and Anticipated Discharge Date Admission Date: June 22, 2023 Subjective patient's MALGORZATA scores are getting better. Needing less Ativan. Patient has been following some commands Review of Systems Review of Systems: All systems reviewed & are unremarkable except as noted in Subjective Physical Exam Physical Exam: General: Drowsy, arousable. Answers a few simple questions but not able to pa rticipate in a conversation. Heart: S1, S2/regular rate and rhythm, no murmur rubs or gallops Lungs: Clear to auscultation bilaterally. Normal effort Abdomen: Soft/nontender/nondistended. No hepatosplenomegaly Extremities: No clubbing/cyanosis. No edema Behavior: Unable to assess Results & Data Results & Data Vital Signs (Past 12 Hours) Vital Signs Temp Pulse Pulse Resp BP BP Pulse Ox 07/02/23 12:14 76 07/02/23 11:59 85 151/82 H 07/02/23 11:08 36.8 C 85 20 151/82 H 95 07/02/23 10:40 90 07/02/23 08:00 36.4 C L 91 H 18 167/89 H 94 07/02/23 06:48 93 H 169/84 H 07/02/23 06:43 93 H 169/84 H 07/02/23 06:33 93 H 166/79 H 07/02/23 05:48 90 179/94 H 07/02/23 05:45 89 173/106 H 07/02/23 05:32 83 163/93 H 07/02/23 04:33 83 163/93 H 07/02/23 02:00 07/02/23 04:10 86 179/109 H 07/02/23 04:06 36.5 C 86 20 179/109 H 96 07/02/23 03:05 36.5 C 91 H 18 158/76 H 97 O2 Del Method O2 Del Method 07/02/23 12:14 07/02/23 11:59 07/02/23 11:08 Room Air 07/02/23 10:40 07/02/23 08:00 Room Air 07/02/23 06:48 07/02/23 06:43 07/02/23 06:33 07/02/23 05:48 07/02/23 05:45 07/02/23 05:32 07/02/23 04:33 07/02/23 02:00 Room Air 07/02/23 04:10 07/02/23 04:06 Room Air 07/02/23 03:05 Room Air Laboratory Results Abnormal lab results 07/02/23 Range/Units 06:40 Chloride 110 H (98-107) mmol/L Creatinine 0.59 L (0.6-1.4) mg/dl Glucose 116 H (70-99(Fasting)) mg/dl PG Care Time/CCT Total # of Minutes Spent Total Time Spent with Patient: Total time spent is greater than 50% in coordination of care (as documented) at patient's floor/unit and/or counseling patient: Coding Level of Care Code 32227 SUB INP/OBS CARE 2/35MIN Diagnoses Acute encephalopathy G93.40 Alcohol withdrawal F10.939 Chronic alcoholism with psychosis with hallucinations F10.251 Cognitive impairment R41.89 Learning disabilities F81.9 Hypomagnesemia E83.42 Hypertension I10 Hepatitis C B19.20 Elevated AST (SGOT) R74.01 Hypothyroidism E03.9 DVT prophylaxis Z29.9 Hypokalemia E87.6
[2023-07-03] MEDS: METOPROLOL TARTRATE 1 MG/ML VIAL IV SCH ×4 (05:53→23:58)
[2023-07-03] MEDS: LEVOTHYROXINE SODIUM 50 MCG TABLET PO SCH (05:54)
[2023-07-03] MEDS: hydrALAZINE HCL 20 MG/ML VIAL IV SCH ×3 (05:54→19:46)
[2023-07-03 07:35] LABS: BUN Creatinine Ratio 15.7 (10-20); Creatinine Clr Calc Pharmacy 115.5 ml/min; Est GFR (African American) 111.6 ml/min; Est GFR (Non-African American) 96.3 ml/min; Potassium 3.6 mmol/L (3.5-5.1)
[2023-07-03] MEDS: FOLIC ACID 1 MG in SYRINGE 9.8 ML IV SCH (07:51)
[2023-07-03] MEDS: ENOXAPARIN INJ 40 MG/0.4 ML SYR SQ SCH (07:51)
[2023-07-03] MEDS: CIPROFLOXACIN HCL 0.3% OP SOLN 2.5 ML BTL OPB SCH ×4 (07:51→19:43)
[2023-07-03] MEDS: THIAMINE HCL 200 MG in SODIUM CHLORIDE 0.9% 50 ML IV SCH ×2 (07:52→19:44)
[2023-07-03] MEDS: haloperidoL 5 MG TAB PO SCH ×3 (07:53→19:54)
[2023-07-03] MEDS: D5W AND 1/2NSS + 20MEQ KCL 20 MEQ/1,000 ML BAG IV SCH ×2 (10:06→19:44)
--- NOTE | 2023-07-03 10:28 | Hospitalist Progress Note ---
Date of Service July 03, 2023 Assessment & Plan (1) Acute encephalopathy: Plan: remains confused, less agitated, not combative Has been following some commands. Per nurse, he ate a little bit. Did not require IV ativan per AWSS protocol overnight Off of restraints current mental status likely a combination of etoh withdrawal +/- a Wernicke's type state +/- delirium in the setting of baseline dementia vs combination of factors in 2021 had a protracted hospitalization marked by prolonged etoh withdrawal period followed by weeks of confusion appreciate psychiatry involvement & recs B1 level is within normal limit cont thiamine 200mg BID IV CT head neg at time of admission (2) Alcohol withdrawal: Plan: AWSS protocol appreciate psych assistance see #1 above cont thiamine/folate supplementation telemetry cont IVF (3) Chronic alcoholism with psychosis with hallucinations: Plan: per previous discussions with the pt's family he has had intermittent psychotic symptoms over the years some of this was in the setting of etoh abuse he also has remote h/o drug abuse he continues to drink etoh, and had a detectable etoh level upon admission here psych consult appreciated; recs welcomed defer med management to them (antipsychotics, ativan, etc) checked B1 -within normal limits checked B12 - about 400 replace low thyroid - synthroid 50mcg daily; if unable to take by mouth give IV every 2-3 days likely with etoh withdrawal as in #1 above (4) Cognitive impairment: Plan: in 2021 had a 6+ week hospital stay in which he went through suspected etoh withdrawal, which was then followed by protracted course of severe confusion by the end of that stay his mentation improved to the point where it was felt he had medical decision making capacity subsequently there has been concern based on the record that he has a developing dementia process vs other I don't believe a formal neurocognitive eval has ever been done (5) Learning disabilities: Plan: Per Dr. Tony, his sister has reported he was diagnosed with learning disabilities early in life Always struggled in school, etc Suggestive of LD (6) Hypomagnesemia: Plan: replaced resolved (7) Hypertension: Plan: not reliably taking PO meds thus, scheduled IV lopressor 5mg q6h added hydralazine IV 5mg q8h (8) Hepatitis C: Plan: 12/2021 HepC ab + HepC RNA markedly elevated c/w active HepC infection ideally he see ID and/or GI after discharge to discuss definitive Rx with ongoing etoh abuse, however, uncertain if he is candidate ammonia levels have been wnl (9) Elevated AST (SGOT): Plan: likely 2nd to chronic HepC infection previous liver imaging 08/2022 without cirrhosis (10) Hypothyroidism: Plan: previous TSH levels have been mildly high current TSH level also high FT4 borderline low in light of cognitive issues will replace started synthroid 50mcg daily -- but not taking PO reliably -- may need to give IV every 2-3 days repeat TSH 6-8 weeks (11) DVT prophylaxis: Plan: lovenox 40mg daily (12) Hypokalemia: Plan: resolved with adding KCL to IV fluids cont such Plan Spoke to patient's daughter, Elsa Cavazos, on the phone on 07/02 to give her an update. Admission and Anticipated Discharge Date Admission Date: June 22, 2023 Subjective Patient did not require Ativan overnight, per nurse. He is off of restraints. He is able to communicate better today. Able to complete sentences. Response to some questions. However still confused. He says, "I need to be taken to the main hospital". Review of Systems Review of Systems: Unobtainable due to cognitive status Physical Exam Physical Exam: General: Drowsy, arousable. Answers a few simple questions. Able to form sentences today but still confused. Heart: S1, S2/regular rate and rhythm, no murmur rubs or gallops Lungs: Clear to auscultation bilaterally. Normal effort Abdomen: Soft/nontender/nondistended. No hepatosplenomegaly Extremities: No clubbing/cyanosis. No edema Behavior: Unable to assess Results & Data Results & Data Vital Signs (Past 12 Hours) Vital Signs Temp Pulse Pulse Resp BP BP Pulse Ox 07/03/23 07:12 36.5 C 75 18 150/95 H 96 07/03/23 06:09 71 152/85 H 07/03/23 05:53 73 143/73 H 07/03/23 05:51 73 18 143/73 H 94 07/02/23 23:00 70 07/03/23 02:00 07/03/23 04:16 36.3 C L 83 20 136/70 97 07/02/23 23:46 36.5 C 80 18 170/94 H 97 07/02/23 23:29 63 07/02/23 23:10 170/94 H Pulse Ox O2 Del Method O2 Del Method 07/03/23 07:12 Room Air 07/03/23 06:09 07/03/23 05:53 07/03/23 05:51 Room Air 07/02/23 23:00 07/03/23 02:00 94 Room Air 07/03/23 04:16 Room Air 07/02/23 23:46 Room Air 07/02/23 23:29 07/02/23 23:10 Laboratory Results Abnormal lab results 07/03/23 Range/Units 05:54 Chloride 109 H (98-107) mmol/L PG Care Time/CCT Total # of Minutes Spent Total Time Spent with Patient: Total time spent is greater than 50% in coordination of care (as documented) at patient's floor/unit and/or counseling patient: Coding Level of Care Code 12714 SUB INP/OBS CARE 2/35MIN Diagnoses Acute encephalopathy G93.40 Alcohol withdrawal F10.939 Chronic alcoholism with psychosis with hallucinations F10.251 Cognitive impairment R41.89 Learning disabilities F81.9 Hypomagnesemia E83.42 Hypertension I10 Hepatitis C B19.20 Elevated AST (SGOT) R74.01 Hypothyroidism E03.9 DVT prophylaxis Z29.9 Hypokalemia E87.6
[2023-07-03] MEDS: LORazepam 2 MG/1 ML VIAL IV PRN (19:58)
[2023-07-04] MEDS: LORazepam 2 MG/1 ML VIAL IV PRN ×5 (00:53→20:30)
[2023-07-04] MEDS: METOPROLOL TARTRATE 1 MG/ML VIAL IV PRN ×3 (02:04→22:29)
[2023-07-04] MEDS: D5W AND 1/2NSS + 20MEQ KCL 20 MEQ/1,000 ML BAG IV SCH ×2 (06:07→16:25)
[2023-07-04] MEDS: METOPROLOL TARTRATE 1 MG/ML VIAL IV SCH ×3 (06:14→18:15)
[2023-07-04] MEDS: hydrALAZINE HCL 20 MG/ML VIAL IV SCH ×3 (06:16→21:02)
[2023-07-04] MEDS: LEVOTHYROXINE SODIUM 50 MCG TABLET PO SCH ×2 (06:30→06:32)
[2023-07-04 07:08] LABS: BUN Creatinine Ratio 13.8 (10-20); Calcium 9.4 mg/dl (8.6-10.3); Est GFR (African American) 120.6 ml/min; Potassium 3.7 mmol/L (3.5-5.1)
[2023-07-04] MEDS: ENOXAPARIN INJ 40 MG/0.4 ML SYR SQ SCH (09:38)
[2023-07-04] MEDS: FOLIC ACID 1 MG in SYRINGE 9.8 ML IV SCH (09:38)
[2023-07-04] MEDS: THIAMINE HCL 200 MG in SODIUM CHLORIDE 0.9% 50 ML IV SCH ×2 (09:39→20:57)
[2023-07-04] MEDS: haloperidoL 5 MG TAB PO SCH ×2 (09:39→20:48)
[2023-07-04] MEDS: CIPROFLOXACIN HCL 0.3% OP SOLN 2.5 ML BTL OPB SCH ×4 (09:41→20:47)
--- NOTE | 2023-07-04 13:16 | Hospitalist Progress Note ---
Date of Service July 04, 2023 Assessment & Plan (1) Acute encephalopathy: Plan: remains confused, less agitated, not combative Asked the nurse to assist him while eating to make sure he is having some nutrition. Has been requiring IV ativan per AWSS protocol overnight. Has been requiring IV blood pressure medications as well. Off of restraints current mental status likely a combination of etoh withdrawal +/- a Wernicke's type state +/- delirium in the setting of baseline dementia vs combination of factors in 2021 had a protracted hospitalization marked by prolonged etoh withdrawal period followed by weeks of confusion appreciate psychiatry involvement & recs B1 level is within normal limit cont thiamine 200mg BID IV CT head neg at time of admission (2) Alcohol withdrawal: Plan: AWSS protocol appreciate psych assistance see #1 above cont thiamine/folate supplementation telemetry cont IVF (3) Chronic alcoholism with psychosis with hallucinations: Plan: per previous discussions with the pt's family he has had intermittent psychotic symptoms over the years some of this was in the setting of etoh abuse he also has remote h/o drug abuse he continues to drink etoh, and had a detectable etoh level upon admission here psych consult appreciated; recs welcomed defer med management to them (antipsychotics, ativan, etc) checked B1 -within normal limits checked B12 - about 400 replace low thyroid - synthroid 50mcg daily; if unable to take by mouth give IV every 2-3 days likely with etoh withdrawal as in #1 above (4) Cognitive impairment: Plan: in 2021 had a 6+ week hospital stay in which he went through suspected etoh withdrawal, which was then followed by protracted course of severe confusion by the end of that stay his mentation improved to the point where it was felt he had medical decision making capacity subsequently there has been concern based on the record that he has a developing dementia process vs other a formal neurocognitive eval may be done in the future if not done already. (5) Learning disabilities: Plan: Per Dr. Tony, his sister has reported he was diagnosed with learning disabilities early in life Always struggled in school, etc Suggestive of LD (6) Hypomagnesemia: Plan: replaced resolved (7) Hypertension: Plan: not reliably taking PO meds thus, scheduled IV lopressor 5mg q6h added hydralazine IV 5mg q8h (8) Hepatitis C: Plan: 12/2021 HepC ab + HepC RNA markedly elevated c/w active HepC infection ideally he see ID and/or GI after discharge to discuss definitive Rx with ongoing etoh abuse, however, uncertain if he is candidate ammonia levels have been wnl (9) Elevated AST (SGOT): Plan: likely 2nd to chronic HepC infection previous liver imaging 08/2022 without cirrhosis (10) Hypothyroidism: Plan: previous TSH levels have been mildly high current TSH level also high FT4 borderline low in light of cognitive issues will replace started synthroid 50mcg daily repeat TSH 6-8 weeks (11) DVT prophylaxis: Plan: lovenox 40mg daily (12) Hypokalemia: Plan: resolved with adding KCL to IV fluids cont such Plan Spoke to patient's daughter, Elsa Cavazos, on the phone on 07/02 to give her an update. Admission and Anticipated Discharge Date Admission Date: June 22, 2023 Subjective patient remain off of restraints but requiring Ativan still. Blood pressure still high requiring IV as needed medications. Review of Systems Review of Systems: Unobtainable due to cognitive status Physical Exam Physical Exam: General: Drowsy, arousable. Answers a few simple questions. Heart: S1, S2/regular rate and rhythm, no murmur rubs or gallops Lungs: Clear to auscultation bilaterally. Normal effort Abdomen: Soft/nontender/nondistended. No hepatosplenomegaly Extremities: No clubbing/cyanosis. No edema Behavior: Unable to assess Results & Data Results & Data Vital Signs (Past 12 Hours) Vital Signs Temp Pulse Pulse Resp BP BP BP 07/04/23 12:00 36.8 C 88 18 176/114 H 07/04/23 12:03 97 H 177/114 H 07/04/23 11:58 87 07/04/23 08:00 07/04/23 08:35 36.9 C 90 22 177/111 H 07/04/23 06:33 92 H 196/91 H 07/04/23 06:27 36.6 C 86 20 148/81 H 07/04/23 06:14 85 182/100 H 07/04/23 05:37 36.5 C 85 19 182/100 H 07/04/23 03:06 36.8 C 84 18 181/104 H 07/04/23 02:00 07/04/23 02:51 36.8 C 83 18 165/101 H 07/04/23 02:19 83 165/101 H 07/04/23 02:04 89 181/92 H 07/04/23 02:03 36.5 C 89 19 181/92 H Pulse Ox Pulse Ox O2 Del Method O2 Del Method 07/04/23 12:00 95 Room Air 07/04/23 12:03 07/04/23 11:58 07/04/23 08:00 Room Air 07/04/23 08:35 94 Room Air 07/04/23 06:33 07/04/23 06:27 07/04/23 06:14 07/04/23 05:37 95 Room Air 07/04/23 03:06 95 Room Air 07/04/23 02:00 94 Room Air 07/04/23 02:51 94 Room Air 07/04/23 02:19 07/04/23 02:04 07/04/23 02:03 95 Room Air PG Care Time/CCT Total # of Minutes Spent Total Time Spent with Patient: Total time spent is greater than 50% in coordination of care (as documented) at patient's floor/unit and/or counseling patient: Coding Level of Care Code 48078 SUB INP/OBS CARE 2/35MIN Diagnoses Acute encephalopathy G93.40 Alcohol withdrawal F10.939 Chronic alcoholism with psychosis with hallucinations F10.251 Cognitive impairment R41.89 Learning disabilities F81.9 Hypomagnesemia E83.42 Hypertension I10 Hepatitis C B19.20 Elevated AST (SGOT) R74.01 Hypothyroidism E03.9 DVT prophylaxis Z29.9 Hypokalemia E87.6
[2023-07-05] MEDS: METOPROLOL TARTRATE 1 MG/ML VIAL IV SCH ×4 (00:22→18:20)
[2023-07-05] MEDS ORDERED: Nursing to Pharmacy Communication SCH ×2 (02:45→23:45)
[2023-07-05] MEDS: METOPROLOL TARTRATE 1 MG/ML VIAL IV PRN ×2 (04:01→20:45)
[2023-07-05] MEDS: LORazepam 2 MG/1 ML VIAL IV PRN ×4 (04:02→20:45)
[2023-07-05] MEDS: D5W AND 1/2NSS + 20MEQ KCL 20 MEQ/1,000 ML BAG IV SCH ×2 (04:33→14:09)
[2023-07-05] MEDS: hydrALAZINE HCL 20 MG/ML VIAL IV SCH ×3 (05:28→22:21)
[2023-07-05] MEDS: LEVOTHYROXINE SODIUM 50 MCG TABLET PO SCH (05:38)
[2023-07-05 07:16] LABS: BUN Creatinine Ratio 8.1 (10-20); Calcium 9.7 mg/dl (8.6-10.3); Creatinine Clr Calc Pharmacy 125.9 ml/min; Est GFR (African American) 117.3 ml/min; Est GFR (Non-African American) 101.2 ml/min; Potassium 3.8 mmol/L (3.5-5.1)
[2023-07-05] MEDS: ENOXAPARIN INJ 40 MG/0.4 ML SYR SQ SCH (08:39)
[2023-07-05] MEDS: haloperidoL 5 MG TAB PO SCH ×2 (08:39→20:56)
[2023-07-05] MEDS: THIAMINE HCL 200 MG in SODIUM CHLORIDE 0.9% 50 ML IV SCH ×2 (08:41→20:57)
[2023-07-05] MEDS: FOLIC ACID 1 MG in SYRINGE 9.8 ML IV SCH (08:41)
[2023-07-05] MEDS: CIPROFLOXACIN HCL 0.3% OP SOLN 2.5 ML BTL OPB SCH ×4 (08:41→20:55)
--- NOTE | 2023-07-05 14:57 | Hospitalist Progress Note ---
Date of Service July 05, 2023 Assessment & Plan (1) Acute encephalopathy: Plan: remains confused He has started to become slightly combative. Asked the nurse to assist him while eating to make sure he is having some nutrition. Has been requiring IV ativan per AWSS protocol overnight. Has been requiring IV blood pressure medications as well. Off of restraints current mental status likely a combination of etoh withdrawal +/- a Wernicke's type state +/- delirium in the setting of baseline dementia vs combination of factors in 2021 had a protracted hospitalization marked by prolonged etoh withdrawal period followed by weeks of confusion appreciate psychiatry involvement & recs B1 level is within normal limit cont thiamine 200mg BID IV CT head neg at time of admission (2) Alcohol withdrawal: Plan: AWSS protocol appreciate psych assistance see #1 above cont thiamine/folate supplementation telemetry cont IVF (3) Chronic alcoholism with psychosis with hallucinations: Plan: per previous discussions with the pt's family he has had intermittent psychotic symptoms over the years some of this was in the setting of etoh abuse he also has remote h/o drug abuse he continues to drink etoh, and had a detectable etoh level upon admission here psych consult appreciated; recs welcomed defer med management to them (antipsychotics, ativan, etc) checked B1 -within normal limits checked B12 - about 400 replace low thyroid - synthroid 50mcg daily; if unable to take by mouth give IV every 2-3 days likely with etoh withdrawal as in #1 above (4) Cognitive impairment: Plan: in 2021 had a 6+ week hospital stay in which he went through suspected etoh withdrawal, which was then followed by protracted course of severe confusion by the end of that stay his mentation improved to the point where it was felt he had medical decision making capacity subsequently there has been concern based on the record that he has a developing dementia process vs other a formal neurocognitive eval may be done in the future if not done already. (5) Learning disabilities: Plan: Per Dr. Tony, his sister has reported he was diagnosed with learning disabilities early in life Always struggled in school, etc Suggestive of LD (6) Hypomagnesemia: Plan: replaced resolved (7) Hypertension: Plan: not reliably taking PO meds thus, scheduled IV lopressor 5mg q6h added hydralazine IV 5mg q8h (8) Hepatitis C: Plan: 12/2021 HepC ab + HepC RNA markedly elevated c/w active HepC infection ideally he see ID and/or GI after discharge to discuss definitive Rx with ongoing etoh abuse, however, uncertain if he is candidate ammonia levels have been wnl (9) Elevated AST (SGOT): Plan: likely 2nd to chronic HepC infection previous liver imaging 08/2022 without cirrhosis (10) Hypothyroidism: Plan: previous TSH levels have been mildly high current TSH level also high FT4 borderline low in light of cognitive issues will replace started synthroid 50mcg daily repeat TSH 6-8 weeks (11) DVT prophylaxis: Plan: lovenox 40mg daily (12) Hypokalemia: Plan: resolved with adding KCL to IV fluids cont such Plan Spoke to patient's daughter, Elsa Cavazos, on the phone on 07/02 to give her an update. Admission and Anticipated Discharge Date Admission Date: June 22, 2023 Subjective patient has been combative, per nurse. During my encounter however, he was very sleepy. He had just gotten a dose of Ativan. Review of Systems Review of Systems: Unobtainable due to cognitive status Physical Exam Physical Exam: General: Drowsy, arousable. Falls back asleep very quickly. Heart: S1, S2/regular rate and rhythm, no murmur rubs or gallops Lungs: Clear to auscultation bilaterally. Normal effort Abdomen: Soft/nontender/nondistended. No hepatosplenomegaly Extremities: No clubbing/cyanosis. No edema Behavior: Unable to assess Results & Data Results & Data Vital Signs (Past 12 Hours) Vital Signs Temp Pulse Pulse Resp BP BP Pulse Ox 07/05/23 14:35 155/103 H 07/05/23 12:56 94 H 170/91 H 07/05/23 12:41 90 178/91 H 07/05/23 07:10 87 07/05/23 11:04 36.4 C L 82 20 176/91 H 97 07/05/23 08:00 07/05/23 07:19 36.6 C 91 H 19 174/104 H 93 07/05/23 05:47 85 174/98 H 07/05/23 05:32 80 172/103 H 07/05/23 05:21 36.8 C 80 20 172/103 H 97 07/05/23 04:16 76 170/100 H 07/05/23 04:01 80 175/113 H 07/05/23 03:56 37.1 C 80 21 175/113 H 98 O2 Del Method 07/05/23 14:35 07/05/23 12:56 07/05/23 12:41 07/05/23 07:10 07/05/23 11:04 Room Air 07/05/23 08:00 Room Air 07/05/23 07:19 Room Air 07/05/23 05:47 07/05/23 05:32 07/05/23 05:21 Room Air 07/05/23 04:16 07/05/23 04:01 07/05/23 03:56 Room Air Laboratory Results Abnormal lab results 07/05/23 Range/Units 06:42 Chloride 108 H (98-107) mmol/L BUN 5 L (6-23) mg/dl BUN/Creatinine Ratio 8.1 L (10-20) Glucose 121 H (70-99(Fasting)) mg/dl PG Care Time/CCT Total # of Minutes Spent Total Time Spent with Patient: Total time spent is greater than 50% in coordination of care (as documented) at patient's floor/unit and/or counseling patient: Coding Level of Care Code 41106 SUB INP/OBS CARE 235MIN Diagnoses Acute encephalopathy G93.40 Alcohol withdrawal F10.939 Chronic alcoholism with psychosis with hallucinations F10.251 Cognitive impairment R41.89 Learning disabilities F81.9 Hypomagnesemia E83.42 Hypertension I10 Hepatitis C B19.20 Elevated AST (SGOT) R74.01 Hypothyroidism E03.9 DVT prophylaxis Z29.9 Hypokalemia E87.6
[2023-07-06] MEDS: METOPROLOL TARTRATE 1 MG/ML VIAL IV SCH ×4 (00:52→17:31)
[2023-07-06] MEDS: D5W AND 1/2NSS + 20MEQ KCL 20 MEQ/1,000 ML BAG IV SCH ×4 (02:14→23:40)
[2023-07-06] MEDS: LORazepam 2 MG/1 ML VIAL IV PRN ×4 (04:50→10:59)
[2023-07-06] MEDS: hydrALAZINE HCL 20 MG/ML VIAL IV SCH ×3 (05:30→22:09)
[2023-07-06] MEDS: LEVOTHYROXINE SODIUM 50 MCG TABLET PO SCH (05:44)
[2023-07-06] MEDS: haloperidoL 5 MG TAB PO SCH ×2 (08:57→20:05)
[2023-07-06] MEDS: FOLIC ACID 1 MG in SYRINGE 9.8 ML IV SCH (08:57)
[2023-07-06] MEDS: ENOXAPARIN INJ 40 MG/0.4 ML SYR SQ SCH (08:58)
[2023-07-06] MEDS: CIPROFLOXACIN HCL 0.3% OP SOLN 2.5 ML BTL OPB SCH ×4 (09:00→20:04)
[2023-07-06] MEDS: THIAMINE HCL 200 MG in SODIUM CHLORIDE 0.9% 50 ML IV SCH ×2 (09:03→20:04)
--- NOTE | 2023-07-06 23:18 | Hospitalist Progress Note ---
Date of Service July 06, 2023 Assessment & Plan (1) Acute encephalopathy: Plan: remains confused He has started to become slightly combative. Asked the nurse to assist him while eating to make sure he is having some nutrition. Has been requiring IV ativan per AWSS protocol overnight. Has been requiring IV blood pressure medications as well. Off of restraints current mental status likely a combination of etoh withdrawal +/- a Wernicke's type state +/- delirium in the setting of baseline dementia vs combination of factors in 2021 had a protracted hospitalization marked by prolonged etoh withdrawal period followed by weeks of confusion appreciate psychiatry involvement & recs B1 level is within normal limit cont thiamine 200mg BID IV CT head neg at time of admission Continue giving patient benzo medication for withdrawal (2) Alcohol withdrawal: Plan: AWSS protocol appreciate psych assistance see #1 above cont thiamine/folate supplementation telemetry cont IVF (3) Chronic alcoholism with psychosis with hallucinations: Plan: per previous discussions with the pt's family he has had intermittent psychotic symptoms over the years some of this was in the setting of etoh abuse he also has remote h/o drug abuse he continues to drink etoh, and had a detectable etoh level upon admission here psych consult appreciated; recs welcomed defer med management to them (antipsychotics, ativan, etc) checked B1 -within normal limits checked B12 - about 400 replace low thyroid - synthroid 50mcg daily; if unable to take by mouth give IV every 2-3 days likely with etoh withdrawal as in #1 above (4) Cognitive impairment: Plan: in 2021 had a 6+ week hospital stay in which he went through suspected etoh withdrawal, which was then followed by protracted course of severe confusion by the end of that stay his mentation improved to the point where it was felt he had medical decision making capacity subsequently there has been concern based on the record that he has a developing dementia process vs other a formal neurocognitive eval may be done in the future if not done already. (5) Learning disabilities: Plan: Per Dr. Tony, his sister has reported he was diagnosed with learning disabilities early in life Always struggled in school, etc Suggestive of LD (6) Hypomagnesemia: Plan: replaced resolved (7) Hypertension: Plan: not reliably taking PO meds thus, scheduled IV lopressor 5mg q6h added hydralazine IV 5mg q8h (8) Hepatitis C: Plan: 12/2021 HepC ab + HepC RNA markedly elevated c/w active HepC infection ideally he see ID and/or GI after discharge to discuss definitive Rx with ongoing etoh abuse, however, uncertain if he is candidate ammonia levels have been wnl (9) Elevated AST (SGOT): Plan: likely 2nd to chronic HepC infection previous liver imaging 08/2022 without cirrhosis (10) Hypothyroidism: Plan: previous TSH levels have been mildly high current TSH level also high FT4 borderline low in light of cognitive issues will replace started synthroid 50mcg daily repeat TSH 6-8 weeks (11) DVT prophylaxis: Plan: lovenox 40mg daily (12) Hypokalemia: Plan: resolved with adding KCL to IV fluids cont such Plan Spoke to patient's daughter, Elsa Cavazos, on the phone on 07/02 to give her an update. Admission and Anticipated Discharge Date Admission Date: June 22, 2023 Subjective Patient continues to have withdrawal symptoms as per nurse. Resting comfortably on exam. Review of Systems Review of Systems: All systems reviewed & are unremarkable except as noted in HPI & below Physical Exam Physical Exam: General: Drowsy, arousable. Falls back asleep very quickly. Heart: S1, S2/regular rate and rhythm, no murmur rubs or gallops Lungs: Clear to auscultation bilaterally. Normal effort Abdomen: Soft/nontender/nondistended. No hepatosplenomegaly Extremities: No clubbing/cyanosis. No edema Behavior: Unable to assess Results & Data Results & Data Vital Signs (Past 12 Hours) Vital Signs Temp Pulse Pulse Resp BP BP Pulse Ox 07/06/23 19:29 36.8 C 73 18 156/102 H 94 07/06/23 19:51 07/06/23 17:46 72 146/98 H 07/06/23 17:31 77 138/95 07/06/23 15:44 64 07/06/23 12:10 80 150/92 H 07/06/23 14:32 132/85 07/06/23 11:36 36.5 C 84 18 193/101 H 93 07/06/23 11:55 81 138/94 O2 Del Method 07/06/23 19:29 Room Air 07/06/23 19:51 Room Air 07/06/23 17:46 07/06/23 17:31 07/06/23 15:44 07/06/23 12:10 10/24/23 14:32 07/06/23 11:36 Room Air 07/06/23 11:55 PG Care Time/CCT Total # of Minutes Spent Total Time Spent with Patient: Total time spent is greater than 50% in coordination of care (as documented) at patient's floor/unit and/or counseling patient: Coding Level of Care Code 00560 SUB INP/OBS CARE 2/35MIN Diagnoses Acute encephalopathy G93.40 Alcohol withdrawal F10.939 Chronic alcoholism with psychosis with hallucinations F10.251 Cognitive impairment R41.89 Learning disabilities F81.9 Hypomagnesemia E83.42 Hypertension I10 Hepatitis C B19.20 Elevated AST (SGOT) R74.01 Hypothyroidism E03.9 DVT prophylaxis Z29.9 Hypokalemia E87.6
[2023-07-07] MEDS: METOPROLOL TARTRATE 1 MG/ML VIAL IV SCH ×5 (00:28→23:16)
[2023-07-07] MEDS: hydrALAZINE HCL 20 MG/ML VIAL IV SCH ×3 (06:17→21:20)
[2023-07-07] MEDS: LEVOTHYROXINE SODIUM 50 MCG TABLET PO SCH (06:22)
[2023-07-07 08:10] LABS: Hematocrit (blood only) 44.3 % (42.0-52.0); Hemoglobin 15.1 g/dl (14.0-18.0); Mean Corpuscular Hemoglobin 30.1 pg (25.0-34.0); Mean Corpuscular Hgb Conc 34.1 g/dL (32.0-36.0); Mean Corpuscular Volume 88.2 fL (80.0-100.0); Mean Platelet Volume 12.9 fL (9.4-12.4); Platelet Count 236 K/uL (130-400); RDW Coefficient of Variation 13.5 % (11.5-14.5); Red Blood Count 5.02 M/uL (4.70-6.10); White Blood Count 6.46 K/ul (4.8-10.8)
[2023-07-07 08:30] LABS: Albumin Globulin Ratio 1.2 (0.9-2); Albumin Level 4.1 gm/dl (3.4-5.0); Bilirubin,Total 0.9 mg/dl (0.2-1.0); Calcium 10.1 mg/dl (8.6-10.3); Creatinine Clr Calc Pharmacy 110.2 ml/min; Est GFR (African American) 111.6 ml/min; Est GFR (Non-African American) 96.3 ml/min; Globulin 3.4 gm/dl (2.5-4.0); Potassium 4.7 mmol/L (3.5-5.1); Total Protein 7.5 gm/dl (6.0-8.3)
[2023-07-07] MEDS: ENOXAPARIN INJ 40 MG/0.4 ML SYR SQ SCH (10:28)
[2023-07-07] MEDS: FOLIC ACID 1 MG in SYRINGE 9.8 ML IV SCH (10:34)
[2023-07-07] MEDS: LORazepam 2 MG/1 ML VIAL IV PRN ×2 (10:38→18:24)
[2023-07-07] MEDS: THIAMINE HCL 200 MG in SODIUM CHLORIDE 0.9% 50 ML IV SCH ×2 (10:41→20:46)
[2023-07-07] MEDS: haloperidoL 5 MG TAB PO SCH (10:41)
[2023-07-07] MEDS: D5W AND 1/2NSS + 20MEQ KCL 20 MEQ/1,000 ML BAG IV SCH (10:43)
[2023-07-07] MEDS: HALOPERIDOL LACTATE 5 MG/ML 1 ML VIAL IV SCH (20:42)
--- NOTE | 2023-07-07 21:50 | Hospitalist Progress Note ---
Date of Service July 07, 2023 Assessment & Plan (1) Acute encephalopathy: Plan: remains confused He has started to become slightly combative. Asked the nurse to assist him while eating to make sure he is having some nutrition. Has been requiring IV ativan per AWSS protocol overnight. Has been requiring IV blood pressure medications as well. Off of restraints current mental status likely a combination of etoh withdrawal +/- a Wernicke's type state +/- delirium in the setting of baseline dementia vs combination of factors in 2021 had a protracted hospitalization marked by prolonged etoh withdrawal period followed by weeks of confusion appreciate psychiatry involvement & recs B1 level is within normal limit cont thiamine 200mg BID IV CT head neg at time of admission Continue giving patient benzo medication for withdrawal on 07/07 (2) Alcohol withdrawal: Plan: AWSS protocol appreciate psych assistance see #1 above cont thiamine/folate supplementation telemetry cont IVF (3) Chronic alcoholism with psychosis with hallucinations: Plan: per previous discussions with the pt's family he has had intermittent psychotic symptoms over the years some of this was in the setting of etoh abuse he also has remote h/o drug abuse he continues to drink etoh, and had a detectable etoh level upon admission here psych consult appreciated; recs welcomed defer med management to them (antipsychotics, ativan, etc) checked B1 -within normal limits checked B12 - about 400 replace low thyroid - synthroid 50mcg daily; if unable to take by mouth give IV every 2-3 days likely with etoh withdrawal as in #1 above (4) Cognitive impairment: Plan: in 2021 had a 6+ week hospital stay in which he went through suspected etoh withdrawal, which was then followed by protracted course of severe confusion by the end of that stay his mentation improved to the point where it was felt he had medical decision making capacity subsequently there has been concern based on the record that he has a developing dementia process vs other a formal neurocognitive eval may be done in the future if not done already. (5) Learning disabilities: Plan: Per Dr. Tony, his sister has reported he was diagnosed with learning disabilities early in life Always struggled in school, etc Suggestive of LD (6) Hypomagnesemia: Plan: replaced resolved (7) Hypertension: Plan: not reliably taking PO meds thus, scheduled IV lopressor 5mg q6h added hydralazine IV 5mg q8h (8) Hepatitis C: Plan: 12/2021 HepC ab + HepC RNA markedly elevated c/w active HepC infection ideally he see ID and/or GI after discharge to discuss definitive Rx with ongoing etoh abuse, however, uncertain if he is candidate ammonia levels have been wnl (9) Elevated AST (SGOT): Plan: likely 2nd to chronic HepC infection previous liver imaging 08/2022 without cirrhosis (10) Hypothyroidism: Plan: previous TSH levels have been mildly high current TSH level also high FT4 borderline low in light of cognitive issues will replace started synthroid 50mcg daily repeat TSH 6-8 weeks (11) DVT prophylaxis: Plan: lovenox 40mg daily (12) Hypokalemia: Plan: resolved with adding KCL to IV fluids cont such Plan Spoke to patient's daughter, Elsa Cavazos, on the phone on 07/02 to give her an update. Admission and Anticipated Discharge Date Admission Date: June 22, 2023 Subjective Patient has been resting comfortably. Not providing much history when I am in room, just stares at me. Has requiered benzo as per estella. Review of Systems Review of Systems: All systems reviewed & are unremarkable except as noted in HPI & below Physical Exam Physical Exam: General: Drowsy, arousable. Heart: S1, S2/regular rate and rhythm Lungs: Clear to auscultation bilaterally. Normal effort Abdomen: Soft/nontender/nondistended. No hepatosplenomegaly Extremities: No clubbing/cyanosis. No edema Behavior: Unable to assess Results & Data Results & Data Vital Signs (Past 12 Hours) Vital Signs Temp Pulse Pulse Pulse Resp BP BP 07/07/23 21:19 90 181/97 H 07/07/23 19:21 36.7 C 89 20 178/108 H 07/07/23 18:39 83 160/96 H 07/07/23 18:24 82 171/97 H 07/07/23 17:57 82 07/07/23 17:56 76 07/07/23 15:56 36.7 C 95 H 19 171/97 H 07/07/23 15:14 80 07/07/23 13:16 80 177/110 H 07/07/23 13:01 83 150/86 H 07/07/23 11:37 36.7 C 72 20 150/86 H BP Pulse Ox O2 Del Method 07/07/23 21:19 07/07/23 19:21 94 Room Air 07/07/23 18:39 07/07/23 18:24 07/07/23 17:57 07/07/23 17:56 07/07/23 15:56 93 Room Air 07/07/23 15:14 160/97 H 07/07/23 13:16 07/07/23 13:01 07/07/23 11:37 94 Room Air PG Care Time/CCT Total # of Minutes Spent Total Time Spent with Patient: Total time spent is greater than 50% in coordination of care (as documented) at patient's floor/unit and/or counseling patient: Coding Level of Care Code 95694 SUB INP/OBS CARE 2/35MIN Diagnoses Acute encephalopathy G93.40 Alcohol withdrawal F10.939 Chronic alcoholism with psychosis with hallucinations F10.251 Cognitive impairment R41.89 Learning disabilities F81.9 Hypomagnesemia E83.42 Hypertension I10 Hepatitis C B19.20 Elevated AST (SGOT) R74.01 Hypothyroidism E03.9 DVT prophylaxis Z29.9 Hypokalemia E87.6
[2023-07-08] MEDS: D5W AND 1/2NSS + 20MEQ KCL 20 MEQ/1,000 ML BAG IV SCH ×3 (02:53→23:59)
[2023-07-08] MEDS: METOPROLOL TARTRATE 1 MG/ML VIAL IV SCH ×3 (05:19→17:25)
[2023-07-08] MEDS: LEVOTHYROXINE SODIUM 50 MCG TABLET PO SCH (06:26)
[2023-07-08] MEDS: hydrALAZINE HCL 20 MG/ML VIAL IV SCH ×2 (06:27→15:16)
[2023-07-08] MEDS: ENOXAPARIN INJ 40 MG/0.4 ML SYR SQ SCH (08:29)
[2023-07-08] MEDS: THIAMINE HCL 200 MG in SODIUM CHLORIDE 0.9% 50 ML IV SCH ×2 (08:29→21:39)
[2023-07-08] MEDS: FOLIC ACID 1 MG in SYRINGE 9.8 ML IV SCH (08:29)
[2023-07-08] MEDS: HALOPERIDOL LACTATE 5 MG/ML 1 ML VIAL IV SCH (14:00)
[2023-07-08] MEDS: LORazepam 2 MG/1 ML VIAL IV PRN ×2 (14:46→19:58)
--- NOTE | 2023-07-08 17:40 | Hospitalist Progress Note ---
Date of Service July 08, 2023 Assessment & Plan (1) Acute encephalopathy: Plan: remains confused, is on some scheduled medicines, will try to streamline, continues on IV ativan stop AWSS protocol its 2 weeks from admission Off of restraints current mental status likely a combination of etoh withdrawal +/- a Wernicke's type state +/- delirium in the setting of baseline dementia plus medications in 2021 had a protracted hospitalization marked by prolonged etoh withdrawal period followed by weeks of confusion appreciate psychiatry involvement & recs B1 level is within normal limit cont thiamine 200mg BID IV CT head neg at time of admission Continue giving patient benzo medication for withdrawal 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: Plan: per previous discussions with the pt's family he has had intermittent psychotic symptoms over the years some of this was in the setting of etoh abuse he also has remote h/o drug abuse he continues to drink etoh, and had a detectable etoh level upon admission here psych consult appreciated; recs welcomed checked B1 -within normal limits checked B12 - about 400 replace low thyroid - Synthroid 50mcg daily; if unable to take by mouth give IV every 2-3 days (3) Cognitive impairment: Plan: in 2021 had a 6+ week hospital stay in which he went through suspected etoh withdrawal, which was then followed by protracted course of severe confusion by the end of that stay his mentation improved to the point where it was felt he had medical decision making capacity subsequently there has been concern based on the record that he has a developing dementia process vs other a formal neurocognitive eval may be done in the future if not done already. (4) Learning disabilities: Plan: Per Dr. Tony, his sister has reported he was diagnosed with learning disabilities early in life Always struggled in school, etc Suggestive of LD (5) Hypomagnesemia: Plan: replaced resolved (6) Hypertension: Plan: not reliably taking PO meds thus, scheduled IV lopressor 5mg q6h added hydralazine IV 5mg q8h (7) Hepatitis C: Plan: 12/2021 HepC ab + HepC RNA markedly elevated c/w active HepC infection ideally he see ID and/or GI after discharge to discuss definitive Rx with ongoing etoh abuse, however, uncertain if he is candidate for treatment ammonia levels have been wnl elevated AST (8) Hypothyroidism: Plan: previous TSH levels have been mildly high current TSH level also high FT4 borderline low (9) DVT prophylaxis: Plan: lovenox 40mg daily Admission and Anticipated Discharge Date Admission Date: June 22, 2023 Subjective pt is more awake and alert but remains confused Physical Exam Physical Exam: pt is awake and answers questions clear lungs although diminished at the bases abd is soft and non tender Results & Data Results & Data Vital Signs (Past 12 Hours) Vital Signs Temp Pulse Pulse Resp BP BP Pulse Ox 07/08/23 17:25 79 131/88 07/08/23 16:00 98.6 F 79 18 148/74 H 98 07/08/23 13:54 76 161/96 H 07/08/23 13:20 87 149/84 H 07/08/23 11:12 98.1 F 87 16 153/88 H 96 07/08/23 08:00 75 07/08/23 08:00 07/08/23 07:28 97.7 F 70 16 103/68 95 07/08/23 05:40 76 148/84 H O2 Del Method 07/08/23 17:25 07/08/23 16:00 Room Air 07/08/23 13:54 07/08/23 13:20 07/08/23 11:12 Room Air 07/08/23 08:00 07/08/23 08:00 Room Air 07/08/23 07:28 Room Air 07/08/23 05:40 PG Care Time/CCT Total # of Minutes Spent Total Time Spent with Patient: Total time spent is greater than 50% in coordination of care (as documented) at patient's floor/unit and/or counseling patient: Coding Level of Care Code 44114 SUB INP/OBS CARE 2/35MIN Diagnoses Acute encephalopathy G93.40 Chronic alcoholism with psychosis with hallucinations F10.251 Cognitive impairment R41.89 Learning disabilities F81.9 Hypomagnesemia E83.42 Hypertension I10 Hepatitis C B19.20 Hypothyroidism E03.9 DVT prophylaxis Z29.9
[2023-07-08] MEDS ORDERED: QUEtiapine FUMARATE 25 MG TABLET PO SCH (21:00)
[2023-07-09] MEDS: METOPROLOL TARTRATE 1 MG/ML VIAL IV SCH ×2 (00:11→05:55)
[2023-07-09] MEDS: METOPROLOL TARTRATE 1 MG/ML VIAL IV PRN (01:02)
[2023-07-09] MEDS: OLANZapine 10 MG/2.1 ML SDV IM PRN (01:28)
[2023-07-09] MEDS: LEVOTHYROXINE SODIUM 50 MCG TABLET PO SCH (05:57)
[2023-07-09] MEDS: THIAMINE HCL 200 MG in SODIUM CHLORIDE 0.9% 50 ML IV SCH (08:45)
[2023-07-09] MEDS: ENOXAPARIN INJ 40 MG/0.4 ML SYR SQ SCH (08:45)
[2023-07-09] MEDS: FOLIC ACID 1 MG in SYRINGE 9.8 ML IV SCH (08:45)
[2023-07-09] MEDS ORDERED: amLODIPine BESYLATE 5 MG TAB PO SCH (09:00)
[2023-07-09] MEDS: D5W AND 1/2NSS + 20MEQ KCL 20 MEQ/1,000 ML BAG IV SCH ×2 (10:28→20:54)
[2023-07-09] MEDS: METOPROLOL SUCC 50MG EXT REL TAB PO SCH (11:03)
[2023-07-09] MEDS: amLODIPine BESYLATE 5 MG TAB PO SCH (11:04)
--- NOTE | 2023-07-09 16:36 | Hospitalist Progress Note ---
Date of Service July 09, 2023 Assessment & Plan (1) Acute encephalopathy: Plan: remains confused, required sedation in the evening to prevent injury to self and staff will attempt scheduled Zyprexa ODT 2.5 in morning 5 at night. We will give 1 dose of clonazepam at 7 PM tonight to hopefully have him restful throughout the evening. We will change intravenous thiamine to p.o. thiamine today. We will stop the MALGORZATA S scores as 2 weeks out and just have IV Ativan as needed. May need to reengage with psychiatry if these moods do not improve current mental status likely a combination of etoh withdrawal +/- a Wernicke's type state +/- delirium in the setting of baseline dementia plus medications in 2021 had a protracted hospitalization marked by prolonged etoh withdrawal period followed by weeks of confusion B1 level is within normal limit cont thiamine convert to p.o. [address] head neg at time of admission Continue giving patient benzo medication for agitation and behavior control, also has IM Haldol backup 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: Plan: per previous discussions with the pt's family he has had intermittent psychotic symptoms over the years some of this was in the setting of etoh abuse he also has remote h/o drug abuse he continues to drink etoh, and had a detectable etoh level upon admission here psych consult appreciated; recs welcomed checked B1 -within normal limits checked B12 - about 400 replace low thyroid - Synthroid 50mcg daily; if unable to take by mouth give IV every 2-3 days (3) Cognitive impairment: Plan: in 2021 had a 6+ week hospital stay in which he went through suspected etoh withdrawal, which was then followed by protracted course of severe confusion by the end of that stay his mentation improved to the point where it was felt he had medical decision making capacity subsequently there has been concern based on the record that he has a developing dementia process vs other a formal neurocognitive eval may be done in the future if not done already. (4) Learning disabilities: Plan: Per Dr. Tony, his sister has reported he was diagnosed with learning disabilities early in life Always struggled in school, etc Suggestive of LD (5) Hypomagnesemia: Plan: replaced resolved (6) Hypertension: Plan: not reliably taking PO meds thus, continue as needed Lopressor and hydralazine trying Catapres patch ordering amlodipine and metoprolol p.o. when able to take (7) Hepatitis C: Plan: 12/2021 HepC ab + HepC RNA markedly elevated c/w active HepC infection ideally he see ID and/or GI after discharge to discuss definitive Rx with ongoing etoh abuse, however, uncertain if he is candidate for treatment ammonia levels have been wnl elevated AST (8) Hypothyroidism: Plan: previous TSH levels have been mildly high current TSH level also high FT4 borderline low (9) DVT prophylaxis: Plan: lovenox 40mg daily Admission and Anticipated Discharge Date Admission Date: June 22, 2023 Subjective patient was agitated last night had challenging difficulties requiring chemical restraints now is overly sedate mumbling unable to take p.o. meds reliably remains in telemetry unit due to need for intermittent intravenous hypertension control Physical Exam Physical Exam: pt is able to mumble and spontaneously move all extremities clear lungs although diminished at the bases abd is soft and non tender Results & Data Results & Data Vital Signs (Past 12 Hours) Vital Signs Temp Pulse Pulse Resp BP BP Pulse Ox 07/09/23 15:32 97.9 F 68 18 180/94 H 94 07/09/23 11:00 98.2 F 64 20 170/95 H 94 07/09/23 08:00 64 07/09/23 08:00 07/09/23 07:49 97.9 F 69 18 192/90 H 96 07/09/23 06:10 68 177/111 H 07/09/23 05:55 66 167/102 H O2 Del Method 07/09/23 15:32 Room Air 07/09/23 11:00 Room Air 07/09/23 08:00 07/09/23 08:00 Room Air 07/09/23 07:49 Room Air 07/09/23 06:10 07/09/23 05:55 Laboratory Results ordered chemistry CBC and ammonia labs for a.m. of 07/10 PG Care Time/CCT Total # of Minutes Spent Total Time Spent with Patient: Total time spent is greater than 50% in coordination of care (as documented) at patient's floor/unit and/or counseling patient: Coding Level of Care Code 62530 SUB INP/OBS CARE 3/50MIN Diagnoses Acute encephalopathy G93.40 Chronic alcoholism with psychosis with hallucinations F10.251 Cognitive impairment R41.89 Learning disabilities F81.9 Hypomagnesemia E83.42 Hypertension I10 Hepatitis C B19.20 Hypothyroidism E03.9 DVT prophylaxis Z29.9
[2023-07-09] MEDS: cloNIDine HCL 0.1 MG/24 HR TRANSDERM SYS TD SCH (17:09)
[2023-07-09] MEDS ORDERED: clonazePAM 0.5 MG TAB PO ONE (19:00)
[2023-07-09] MEDS: OLANZapine ZYDIS 5 MG ORALLY DIS. TAB PO SCH (20:57)
[2023-07-10] MEDS: CHECK CLONIDINE PATCH PLACEMENT SCH ×3 (01:12→17:09)
[2023-07-10] MEDS: LEVOTHYROXINE SODIUM 50 MCG TABLET PO SCH (05:38)
[2023-07-10] MEDS: D5W AND 1/2NSS + 20MEQ KCL 20 MEQ/1,000 ML BAG IV SCH ×2 (05:38→15:33)
[2023-07-10 07:28] LABS: Hematocrit (blood only) 45.7 % (42.0-52.0); Hemoglobin 15.2 g/dl (14.0-18.0); Mean Corpuscular Hemoglobin 29.3 pg (25.0-34.0); Mean Corpuscular Hgb Conc 33.3 g/dL (32.0-36.0); Mean Corpuscular Volume 88.1 fL (80.0-100.0); Mean Platelet Volume 12.8 fL (9.4-12.4); Platelet Count 236 K/uL (130-400); RDW Coefficient of Variation 13.2 % (11.5-14.5); RDW Standard Deviation 42.8 fL (36.4-46.3); Red Blood Count 5.19 M/uL (4.70-6.10); White Blood Count 5.79 K/ul (4.8-10.8)
[2023-07-10 07:42] LABS: BUN Creatinine Ratio 9.2 (10-20); Calcium 9.5 mg/dl (8.6-10.3); Creatinine Clr Calc Pharmacy 118.3 ml/min; Est GFR (African American) 115.1 ml/min; Est GFR (Non-African American) 99.3 ml/min
[2023-07-10] MEDS: ENOXAPARIN INJ 40 MG/0.4 ML SYR SQ SCH (08:33)
[2023-07-10] MEDS: FOLIC ACID 1 MG in SYRINGE 9.8 ML IV SCH (08:35)
[2023-07-10] MEDS: METOPROLOL SUCC 50MG EXT REL TAB PO SCH (10:32)
[2023-07-10] MEDS: amLODIPine BESYLATE 5 MG TAB PO SCH (10:32)
[2023-07-10] MEDS: OLANZapine ZYDIS 5 MG ORALLY DIS. TAB PO SCH ×2 (10:33→21:49)
[2023-07-10] MEDS: THIAMINE HCL 100 MG TAB PO SCH (10:33)
--- NOTE | 2023-07-10 16:28 | Hospitalist Progress Note ---
Date of Service July 10, 2023 Assessment & Plan (1) Acute encephalopathy: Plan: remains confused, required sedation in the evening to prevent injury to self and staff will attempt scheduled Zyprexa ODT 2.5 in morning 5 at night. p.o. thiamine IV Ativan as needed. May need to reengage with psychiatry if these moods do not improve current mental status likely a combination of etoh withdrawal +/- a Wernicke's type state +/- delirium in the setting of baseline dementia plus medications in 2021 had a protracted hospitalization marked by prolonged etoh withdrawal period followed by weeks of confusion B1 level is within normal limit cont thiamine convert to p.o. [address] head neg at time of admission Continue giving patient benzo medication for agitation and behavior control, also has IM Haldol backup 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: Plan: per previous discussions with the pt's family he has had intermittent psychotic symptoms over the years some of this was in the setting of etoh abuse he also has remote h/o drug abuse he continues to drink etoh, and had a detectable etoh level upon admission here psych consult appreciated; recs welcomed checked B1 -within normal limits checked B12 - about 400 replace low thyroid - Synthroid 50mcg daily; if unable to take by mouth give IV every 2-3 days (3) Cognitive impairment: Plan: in 2021 had a 6+ week hospital stay in which he went through suspected etoh withdrawal, which was then followed by protracted course of severe confusion by the end of that stay his mentation improved to the point where it was felt he had medical decision making capacity subsequently there has been concern based on the record that he has a developing dementia process vs other a formal neurocognitive eval may be done in the future if not done already. (4) Learning disabilities: Plan: Per Dr. Tony, his sister has reported he was diagnosed with learning disabilities early in life Always struggled in school, etc Suggestive of LD (5) Hypomagnesemia: Plan: replaced resolved (6) Hypertension: Plan: improving control with catapress tts and attempts at oral meds (7) Hepatitis C: Plan: 12/2021 HepC ab + HepC RNA markedly elevated c/w active HepC infection ideally he see ID and/or GI after discharge to discuss definitive Rx with ongoing etoh abuse, however, uncertain if he is candidate for treatment ammonia levels have been wnl elevated AST (8) Hypothyroidism: Plan: previous TSH levels have been mildly high current TSH level also high FT4 borderline low (9) DVT prophylaxis: Plan: lovenox 40mg daily Admission and Anticipated Discharge Date Admission Date: June 22, 2023 Subjective pt a bit more awake, but still confused us able to eat a bit, but not coherent enough to have appropriate po pills Physical Exam Physical Exam: pt is able to mumble and spontaneously move all extremities did take some direction to commands clear lungs although diminished at the bases abd is soft and non tender Results & Data Results & Data Vital Signs (Past 12 Hours) Vital Signs Temp Pulse Pulse Resp BP Pulse Ox O2 Del Method 07/10/23 15:40 98 H 131/93 07/10/23 10:59 97.9 F 84 22 157/98 H 97 Room Air 07/10/23 08:00 75 07/10/23 08:00 Room Air 07/10/23 08:32 98.2 F 138/88 07/10/23 07:19 85 20 96 Room Air Laboratory Results review cbc PG Care Time/CCT Total # of Minutes Spent Total Time Spent with Patient: Total time spent is greater than 50% in coordination of care (as documented) at patient's floor/unit and/or counseling patient: Coding Level of Care Code 29267 SUB INP/OBS CARE 2/35MIN Diagnoses Acute encephalopathy G93.40 Chronic alcoholism with psychosis with hallucinations F10.251 Cognitive impairment R41.89 Learning disabilities F81.9 Hypomagnesemia E83.42 Hypertension I10 Hepatitis C B19.20 Hypothyroidism E03.9 DVT prophylaxis Z29.9
[2023-07-11] MEDS: CHECK CLONIDINE PATCH PLACEMENT SCH ×4 (00:58→23:39)
[2023-07-11] MEDS: D5W AND 1/2NSS + 20MEQ KCL 20 MEQ/1,000 ML BAG IV SCH ×3 (00:59→20:20)
[2023-07-11] MEDS: LEVOTHYROXINE SODIUM 50 MCG TABLET PO SCH (07:02)
[2023-07-11] MEDS: THIAMINE HCL 100 MG TAB PO SCH (08:14)
[2023-07-11] MEDS: ENOXAPARIN INJ 40 MG/0.4 ML SYR SQ SCH (08:14)
[2023-07-11] MEDS: OLANZapine ZYDIS 5 MG ORALLY DIS. TAB PO SCH ×2 (08:14→20:20)
[2023-07-11] MEDS: METOPROLOL SUCC 50MG EXT REL TAB PO SCH (08:14)
[2023-07-11] MEDS: FOLIC ACID 1 MG in SYRINGE 9.8 ML IV SCH (08:16)
--- NOTE | 2023-07-11 13:24 | Hospitalist Progress Note ---
Date of Service July 11, 2023 Assessment & Plan (1) Acute encephalopathy: Plan: clearing treating gram-negative UTI which may be causing metabolic encephalopathy starting Levaquin expect 3-day treatment continue scheduled Zyprexa ODT 2.5 in morning 5 at night. p.o. thiamine IV Ativan as needed. current mental status likely a combination of etoh withdrawal +/- a Wernicke's type state +/- delirium in the setting of baseline dementia plus metabolic ence phalopathy from UTI present on admission and medications in 2021 had a protracted hospitalization marked by prolonged etoh withdrawal period followed by weeks of confusion B1 level is within normal limit cont thiamine convert to p.o. [address] head neg at time of admission Continue giving patient benzo medication for agitation and behavior control, also has IM Haldol backup 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: Plan: per previous discussions with the pt's family he has had intermittent psychotic symptoms over the years some of this was in the setting of etoh abuse he also has remote h/o drug abuse he continues to drink etoh, and had a detectable etoh level upon admission here psych consult appreciated; recs welcomed checked B1 -within normal limits checked B12 - about 400 replace low thyroid - Synthroid 50mcg daily; if unable to take by mouth give IV every 2-3 days (3) Cognitive impairment: Plan: in 2021 had a 6+ week hospital stay in which he went through suspected etoh withdrawal, which was then followed by protracted course of severe confusion by the end of that stay his mentation improved to the point where it was felt he had medical decision making capacity subsequently there has been concern based on the record that he has a developing dementia process vs other a formal neurocognitive eval may be done in the future if not done already. (4) Learning disabilities: Plan: Per Dr. Tony, his sister has reported he was diagnosed with learning disabilities early in life Always struggled in school, etc Suggestive of LD (5) Hypomagnesemia: Plan: replaced resolved (6) Hypertension: Plan: improving control with catapress tts and attempts at oral meds (7) Hepatitis C: Plan: 12/2021 HepC ab + HepC RNA markedly elevated c/w active HepC infection ideally he see ID and/or GI after discharge to discuss definitive Rx with ongoing etoh abuse, however, uncertain if he is candidate for treatment ammonia levels have been wnl elevated AST (8) Hypothyroidism: Plan: previous TSH levels have been mildly high current TSH level also high FT4 borderline low (9) DVT prophylaxis: Plan: lovenox 40mg daily Admission and Anticipated Discharge Date Admission Date: June 22, 2023 Subjective pt a bit more awake, but still confused,more conversational 07/11/23 able to eat and take more po meds today Physical Exam Physical Exam: pt is able to speak and attempt conversation although non sensical at times has incontinence of stool during exam clear lungs although diminished at the bases abd is soft and non tender Results & Data Results & Data Vital Signs (Past 12 Hours) Vital Signs Temp Pulse Resp BP Pulse Ox O2 Del Method 07/11/23 08:00 Room Air 07/11/23 10:55 98.1 F 72 22 138/78 97 Room Air 07/11/23 07:20 97.5 F L 73 22 149/83 H 96 Room Air 07/11/23 03:14 97.7 F 67 16 171/95 H 97 Room Air Laboratory Results as E. coli UTI now resulted from the this may explain some of his symptoms encephalopathy we will start once a day p.o. meds attempt to reduce med passes in this patient PG Care Time/CCT Total # of Minutes Spent Total Time Spent with Patient: Total time spent is greater than 50% in coordination of care (as documented) at patient's floor/unit and/or counseling patient: Coding Level of Care Code 29845 SUB INP/OBS CARE 2/35MIN Diagnoses Acute encephalopathy G93.40 Chronic alcoholism with psychosis with hallucinations F10.251 Cognitive impairment R41.89 Learning disabilities F81.9 Hypomagnesemia E83.42 Hypertension I10 Hepatitis C B19.20 Hypothyroidism E03.9 DVT prophylaxis Z29.9
[2023-07-11] MEDS: levoFLOXacin 500 MG TAB PO SCH (15:27)
[2023-07-11] MEDS: LORazepam 2 MG/1 ML VIAL IV PRN (23:49)
[2023-07-12] MEDS: OLANZapine 10 MG/2.1 ML SDV IM PRN ×2 (01:07→08:13)
[2023-07-12] MEDS: D5W AND 1/2NSS + 20MEQ KCL 20 MEQ/1,000 ML BAG IV SCH (06:23)
[2023-07-12] MEDS: LEVOTHYROXINE SODIUM 50 MCG TABLET PO SCH (06:23)
[2023-07-12 07:59] LABS: Hemoglobin 13.2 g/dl (14.0-18.0); Mean Corpuscular Hemoglobin 29.5 pg (25.0-34.0); Mean Corpuscular Volume 89.5 fL (80.0-100.0); Mean Platelet Volume 13.1 fL (9.4-12.4); Platelet Count 206 K/uL (130-400); RDW Coefficient of Variation 12.9 % (11.5-14.5); RDW Standard Deviation 42.2 fL (36.4-46.3); Red Blood Count 4.47 M/uL (4.70-6.10); White Blood Count 8.14 K/ul (4.8-10.8)
[2023-07-12] MEDS: CHECK CLONIDINE PATCH PLACEMENT SCH ×3 (08:09→23:38)
[2023-07-12 08:14] LABS: BUN Creatinine Ratio 12.7 (10-20); Calcium 9.2 mg/dl (8.6-10.3); Creatinine Clr Calc Pharmacy 107.9 ml/min; Est GFR (Non-African American) 95.7 ml/min; Potassium 3.6 mmol/L (3.5-5.1)
[2023-07-12] MEDS ORDERED: LORazepam 2 MG/1 ML VIAL IM STA (09:00)
[2023-07-12] MEDS: THIAMINE HCL 100 MG TAB PO SCH (09:06)
[2023-07-12] MEDS: METOPROLOL SUCC 50MG EXT REL TAB PO SCH (09:06)
[2023-07-12] MEDS: FOLIC ACID 1 MG in SYRINGE 9.8 ML IV SCH (09:06)
[2023-07-12] MEDS: OLANZapine ZYDIS 5 MG ORALLY DIS. TAB PO SCH ×2 (09:06→21:47)
[2023-07-12] MEDS: ENOXAPARIN INJ 40 MG/0.4 ML SYR SQ SCH (09:06)
[2023-07-12] MEDS: levoFLOXacin 500 MG TAB PO SCH (11:06)
[2023-07-12] MEDS ORDERED: LORazepam 2 MG/1 ML VIAL IV PRN (17:37)
--- NOTE | 2023-07-12 17:43 | Hospitalist Progress Note ---
Date of Service July 12, 2023 Assessment & Plan (1) Acute encephalopathy: Plan: clearing treating gram-negative UTI which may be causing metabolic encephalopathy starting Levaquin expect 3-day treatment continue scheduled Zyprexa ODT 2.5 in morning 5 at night. p.o. thiamine IV Ativan as needed. current mental status likely a combination of etoh withdrawal +/- a Wernicke's type state +/- delirium in the setting of baseline dementia plus metabolic ence phalopathy from UTI present on admission and medications in 2021 had a protracted hospitalization marked by prolonged etoh withdrawal period followed by weeks of confusion B1 level is within normal limit cont thiamine convert to p.o. [address] head neg at time of admission Continue giving patient benzo medication for agitation and behavior control, also has IM Haldol backup, trying daily po zyprexa 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: Plan: per previous discussions with the pt's family he has had intermittent psychotic symptoms over the years some of this was in the setting of etoh abuse he also has remote h/o drug abuse he continues to drink etoh, and had a detectable etoh level upon admission here psych consult appreciated; recs welcomed checked B1 -within normal limits checked B12 - about 400 replace low thyroid - Synthroid 50mcg daily; if unable to take by mouth give IV every 2-3 days (3) Cognitive impairment: Plan: in 2021 had a 6+ week hospital stay in which he went through suspected etoh withdrawal, which was then followed by protracted course of severe confusion by the end of that stay his mentation improved to the point where it was felt he had medical decision making capacity subsequently there has been concern based on the record that he has a developing dementia process vs other a formal neurocognitive eval may be done in the future if not done already. (4) Learning disabilities: Plan: Per Dr. Tony, his sister has reported he was diagnosed with learning disabilities early in life Always struggled in school, etc Suggestive of LD (5) Hypomagnesemia: Plan: replaced resolved (6) Hypertension: Plan: improving control with catapress tts and attempts at oral meds (7) Hepatitis C: Plan: 12/2021 HepC ab + HepC RNA markedly elevated c/w active HepC infection ideally he see ID and/or GI after discharge to discuss definitive Rx with ongoing etoh abuse, however, uncertain if he is candidate for treatment ammonia levels have been wnl elevated AST (8) Hypothyroidism: Plan: previous TSH levels have been mildly high current TSH level also high FT4 borderline low (9) DVT prophylaxis: Plan: lovenox 40mg daily Admission and Anticipated Discharge Date Admission Date: June 22, 2023 Subjective Patient agitated and acting out today needed multiple doses of chemical restraints Physical Exam Physical Exam: Lethargic cardiac exam regular lungs are clear and unlabored not on danger of losing airway at this point Results & Data Results & Data Vital Signs (Past 12 Hours) Vital Signs Temp Pulse Resp BP BP Pulse Ox O2 Del Method 07/12/23 17:17 97.8 F 90 18 186/119 H 92 Room Air 07/12/23 06:54 97.5 F L 112 H 20 156/90 H 96 Room Air Laboratory Results Reviewed CBC reviewed chemistry PG Care Time/CCT Total # of Minutes Spent Total Time Spent with Patient: Total time spent is greater than 50% in coordination of care (as documented) at patient's floor/unit and/or counseling patient: Coding Level of Care Code 64819 SUB INP/OBS CARE 2/35MIN Diagnoses Acute encephalopathy G93.40 Chronic alcoholism with psychosis with hallucinations F10.251 Cognitive impairment R41.89 Learning disabilities F81.9 Hypomagnesemia E83.42 Hypertension I10 Hepatitis C B19.20 Hypothyroidism E03.9 DVT prophylaxis Z29.9
[2023-07-12] MEDS ORDERED: hydrALAZINE HCL 20 MG/ML VIAL IV PRN (17:55)
[2023-07-13] MEDS: LEVOTHYROXINE SODIUM 50 MCG TABLET PO SCH (06:01)
[2023-07-13] MEDS: PRENATAL VITAMIN 1 TAB PO SCH (09:07)
[2023-07-13] MEDS: OLANZapine ZYDIS 5 MG ORALLY DIS. TAB PO SCH ×2 (09:07→21:13)
[2023-07-13] MEDS: CHECK CLONIDINE PATCH PLACEMENT SCH ×3 (09:07→23:16)
[2023-07-13] MEDS: METOPROLOL SUCC 50MG EXT REL TAB PO SCH (09:08)
[2023-07-13] MEDS: THIAMINE HCL 100 MG TAB PO SCH (09:08)
[2023-07-13] MEDS: ENOXAPARIN INJ 40 MG/0.4 ML SYR SQ SCH (09:10)
[2023-07-13] MEDS: levoFLOXacin 500 MG TAB PO SCH (11:24)
--- NOTE | 2023-07-13 14:00 | Hospitalist Progress Note ---
Date of Service July 13, 2023 Assessment & Plan (1) Acute encephalopathy: Plan: clearing treating gram-negative UTI which may be causing metabolic encephalopathy starting Levaquin expect 3-day treatment continue scheduled Zyprexa ODT 2.5 in morning 5 at night. p.o. thiamine IM Ativan as needed. current mental status likely a combination of etoh withdrawal +/- a Wernicke's type state +/- delirium in the setting of baseline dementia plus metabolic ence phalopathy from UTI present on admission and medications in 2021 had a protracted hospitalization marked by prolonged etoh withdrawal period followed by weeks of confusion B1 level is within normal limit cont thiamine convert to p.o. [address] head neg at time of admission Continue giving patient benzo medication for agitation and behavior control, also has IM Haldol backup, trying daily po zyprexa 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: Plan: per previous discussions with the pt's family he has had intermittent psychotic symptoms over the years some of this was in the setting of etoh abuse he also has remote h/o drug abuse he continues to drink etoh, and had a detectable etoh level upon admission here psych consult appreciated; recs welcomed checked B1 -within normal limits checked B12 - about 400 replace low thyroid - Synthroid 50mcg daily; if unable to take by mouth give IV every 2-3 days (3) Cognitive impairment: Plan: in 2021 had a 6+ week hospital stay in which he went through suspected etoh withdrawal, which was then followed by protracted course of severe confusion by the end of that stay his mentation improved to the point where it was felt he had medical decision making capacity subsequently there has been concern based on the record that he has a developing dementia process vs other a formal neurocognitive eval may be done in the future if not done already. (4) Learning disabilities: Plan: Per Dr. Tony, his sister has reported he was diagnosed with learning disabilities early in life Always struggled in school, etc Suggestive of LD (5) Hypomagnesemia: Plan: replaced resolved (6) Hypertension: Plan: improving control with catapress tts and attempts at oral meds (7) Hepatitis C: Plan: 12/2021 HepC ab + HepC RNA markedly elevated c/w active HepC infection ideally he see ID and/or GI after discharge to discuss definitive Rx with ongoing etoh abuse, however, uncertain if he is candidate for treatment ammonia levels have been wnl resolved transaminitis (8) Hypothyroidism: Plan: previous TSH levels have been mildly high current TSH level also high FT4 borderline low (9) DVT prophylaxis: Plan: lovenox 40mg daily Admission and Anticipated Discharge Date Admission Date: June 22, 2023 Subjective patient continues to be a challenge controlling his behavior did have a rough night however is much more in tune today. No focal complaints or problems Physical Exam Physical Exam: mumbling occasionally making words make sense card exam is regular lungs are clear Results & Data Results & Data Vital Signs (Past 12 Hours) Vital Signs Temp Pulse Resp BP BP Pulse Ox O2 Del Method 07/13/23 08:11 Room Air 07/13/23 07:45 97.7 F 59 L 18 157/82 H 97 Room Air 07/13/23 06:00 97.9 F 62 18 138/88 96 Room Air 07/13/23 02:00 98.1 F 72 18 111/69 96 Room Air PG Care Time/CCT Total # of Minutes Spent Total Time Spent with Patient: Total time spent is greater than 50% in coordination of care (as documented) at patient's floor/unit and/or counseling patient: Coding Level of Care Code 55781 SUB INP/OBS CARE 2/35MIN Diagnoses Acute encephalopathy G93.40 Chronic alcoholism with psychosis with hallucinations F10.251 Cognitive impairment R41.89 Learning disabilities F81.9 Hypomagnesemia E83.42 Hypertension I10 Hepatitis C B19.20 Hypothyroidism E03.9 DVT prophylaxis Z29.9
[2023-07-14] MEDS: LEVOTHYROXINE SODIUM 50 MCG TABLET PO SCH ×2 (06:23→06:30)
[2023-07-14] MEDS: CHECK CLONIDINE PATCH PLACEMENT SCH ×3 (07:38→23:04)
[2023-07-14] MEDS: OLANZapine ZYDIS 5 MG ORALLY DIS. TAB PO SCH ×3 (08:14→20:22)
[2023-07-14] MEDS: PRENATAL VITAMIN 1 TAB PO SCH ×2 (08:14→09:38)
[2023-07-14] MEDS: THIAMINE HCL 100 MG TAB PO SCH ×2 (08:14→09:38)
[2023-07-14] MEDS: ENOXAPARIN INJ 40 MG/0.4 ML SYR SQ SCH (08:14)
[2023-07-14] MEDS: METOPROLOL SUCC 50MG EXT REL TAB PO SCH (09:37)
[2023-07-14 09:55] LABS: BUN Creatinine Ratio 23.8 (10-20); Calcium 10.1 mg/dl (8.6-10.3); Creatinine Clr Calc Pharmacy 91.2 ml/min; Est GFR (African American) 103.5 ml/min; Est GFR (Non-African American) 89.3 ml/min; Potassium 3.8 mmol/L (3.5-5.1)
[2023-07-14 10:14] LABS: Hematocrit (blood only) 45.2 % (42.0-52.0); Hemoglobin 15.2 g/dl (14.0-18.0); Mean Corpuscular Hemoglobin 29.5 pg (25.0-34.0); Mean Corpuscular Hgb Conc 33.6 g/dL (32.0-36.0); Mean Corpuscular Volume 87.6 fL (80.0-100.0); Mean Platelet Volume 13.2 fL (9.4-12.4); Platelet Count 219 K/uL (130-400); Platelet Estimate Normal (Normal); RDW Coefficient of Variation 12.8 % (11.5-14.5); RDW Standard Deviation 41.4 fL (36.4-46.3); Red Blood Count 5.16 M/uL (4.70-6.10); White Blood Count 6.91 K/ul (4.8-10.8)
[2023-07-14] MEDS: levoFLOXacin 500 MG TAB PO SCH (11:07)
--- NOTE | 2023-07-14 16:42 | Hospitalist Progress Note ---
Date of Service July 14, 2023 Assessment & Plan (1) Acute encephalopathy: Plan: clearing treating gram-negative UTI which may be causing metabolic encephalopathy starting Levaquin expect 3-day treatment continue scheduled Zyprexa ODT 2.5 in morning 5 at night. p.o. thiamine IM Ativan as needed. current mental status likely a combination of etoh withdrawal +/- a Wernicke's type state +/- delirium in the setting of baseline dementia plus metabolic ence phalopathy from UTI present on admission and medications in 2021 had a protracted hospitalization marked by prolonged etoh withdrawal period followed by weeks of confusion B1 level is within normal limit cont thiamine convert to p.o. [address] head neg at time of admission Continue giving patient benzo medication for agitation and behavior control, also has IM Haldol backup, trying daily po zyprexa 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: Plan: per previous discussions with the pt's family he has had intermittent psychotic symptoms over the years some of this was in the setting of etoh abuse he also has remote h/o drug abuse he continues to drink etoh, and had a detectable etoh level upon admission here psych consult appreciated; recs welcomed checked B1 -within normal limits checked B12 - about 400 replace low thyroid - Synthroid 50mcg daily; if unable to take by mouth give IV every 2-3 days (3) Cognitive impairment: Plan: in 2021 had a 6+ week hospital stay in which he went through suspected etoh withdrawal, which was then followed by protracted course of severe confusion by the end of that stay his mentation improved to the point where it was felt he had medical decision making capacity subsequently there has been concern based on the record that he has a developing dementia process vs other a formal neurocognitive eval may be done in the future if not done already. (4) Learning disabilities: Plan: Per Dr. Tony, his sister has reported he was diagnosed with learning disabilities early in life Always struggled in school, etc Suggestive of LD (5) Hypomagnesemia: Plan: replaced resolved (6) Hypertension: Plan: improving control with catapress tts and attempts at oral meds (7) Hepatitis C: Plan: 12/2021 HepC ab + HepC RNA markedly elevated c/w active HepC infection ideally he see ID and/or GI after discharge to discuss definitive Rx with ongoing etoh abuse, however, uncertain if he is candidate for treatment ammonia levels have been wnl resolved transaminitis (8) Hypothyroidism: Plan: previous TSH levels have been mildly high current TSH level also high FT4 borderline low (9) DVT prophylaxis: Plan: lovenox 40mg daily Plan disposition remains a challenge as the patient's functional ability and ability to interact is in question to go to a personal-fpc Admission and Anticipated Discharge Date Admission Date: June 22, 2023 Subjective patient continues to be a challenge controlling his behavior did have a better night and is much more in tune today. No focal complaints or problems Physical Exam Physical Exam: mumbling occasionally making words make sense card exam is regular lungs are clear Results & Data Results & Data Vital Signs (Past 12 Hours) Vital Signs Temp Pulse Resp BP Pulse Ox O2 Del Method 07/14/23 11:36 Room Air 07/14/23 09:27 98.1 F 88 18 168/99 H 93 Room Air Laboratory Results Reviewed CBC reviewed chemistry PG Care Time/CCT Total # of Minutes Spent Total Time Spent with Patient: Total time spent is greater than 50% in coordination of care (as documented) at patient's floor/unit and/or counseling patient: Coding Level of Care Code 68548 SUB INP/OBS CARE 2/35MIN Diagnoses Acute encephalopathy G93.40 Chronic alcoholism with psychosis with hallucinations F10.251 Cognitive impairment R41.89 Learning disabilities F81.9 Hypomagnesemia E83.42 Hypertension I10 Hepatitis C B19.20 Hypothyroidism E03.9 DVT prophylaxis Z29.9
[2023-07-14] MEDS: LORazepam 2 MG/1 ML VIAL IM PRN (20:22)
[2023-07-15] MEDS: LEVOTHYROXINE SODIUM 50 MCG TABLET PO SCH (06:01)
[2023-07-15] MEDS: PRENATAL VITAMIN 1 TAB PO SCH (08:56)
[2023-07-15] MEDS: CHECK CLONIDINE PATCH PLACEMENT SCH ×2 (08:56→16:37)
[2023-07-15] MEDS: ENOXAPARIN INJ 40 MG/0.4 ML SYR SQ SCH (08:56)
[2023-07-15] MEDS: METOPROLOL SUCC 50MG EXT REL TAB PO SCH (08:56)
[2023-07-15] MEDS: OLANZapine ZYDIS 5 MG ORALLY DIS. TAB PO SCH ×2 (08:56→19:42)
[2023-07-15] MEDS: THIAMINE HCL 100 MG TAB PO SCH (08:56)
[2023-07-15] MEDS: levoFLOXacin 500 MG TAB PO SCH (10:19)
--- NOTE | 2023-07-15 18:46 | Hospitalist Progress Note ---
Date of Service July 15, 2023 Assessment & Plan (1) Acute encephalopathy: Plan: clearing treating gram-negative UTI which may be causing metabolic encephalopathy starting Levaquin expect 3-day treatment continue scheduled Zyprexa ODT 2.5 in morning 5 at night. p.o. thiamine IM Ativan as needed. current mental status likely a combination of etoh withdrawal +/- a Wernicke's type state +/- delirium in the setting of baseline dementia plus metabolic ence phalopathy from UTI present on admission and medications in 2021 had a protracted hospitalization marked by prolonged etoh withdrawal period followed by weeks of confusion B1 level is within normal limit cont thiamine convert to p.o. [address] head neg at time of admission Continue giving patient benzo medication for agitation and behavior control, also has IM Haldol backup, trying daily po zyprexa On 07/15, patient was found to be more confused. APpears to be waxing and waning. will continue to monitor. 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: Plan: per previous discussions with the pt's family he has had intermittent psychotic symptoms over the years some of this was in the setting of etoh abuse he also has remote h/o drug abuse he continues to drink etoh, and had a detectable etoh level upon admission here psych consult appreciated; recs welcomed checked B1 -within normal limits checked B12 - about 400 replace low thyroid - Synthroid 50mcg daily; if unable to take by mouth give IV every 2-3 days (3) Cognitive impairment: Plan: in 2021 had a 6+ week hospital stay in which he went through suspected etoh withdrawal, which was then followed by protracted course of severe confusion by the end of that stay his mentation improved to the point where it was felt he had medical decision making capacity subsequently there has been concern based on the record that he has a developing dementia process vs other a formal neurocognitive eval may be done in the future if not done already. (4) Learning disabilities: Plan: Per Dr. Tony, his sister has reported he was diagnosed with learning disabilities early in life Always struggled in school, etc Suggestive of LD (5) Hypomagnesemia: Plan: replaced resolved (6) Hypertension: Plan: improving control with catapress tts and attempts at oral meds (7) Hepatitis C: Plan: 12/2021 HepC ab + HepC RNA markedly elevated c/w active HepC infection ideally he see ID and/or GI after discharge to discuss definitive Rx with ongoing etoh abuse, however, uncertain if he is candidate for treatment ammonia levels have been wnl resolved transaminitis (8) Hypothyroidism: Plan: previous TSH levels have been mildly high current TSH level also high FT4 borderline low (9) DVT prophylaxis: Plan: lovenox 40mg daily Plan disposition remains a challenge as the patient's functional ability and ability to interact is in question to go to a personal-long-term Admission and Anticipated Discharge Date Admission Date: June 22, 2023 Subjective Patient is confused, does not know his own name. Review of Systems Review of Systems: All systems reviewed & are unremarkable except as noted in HPI & below Physical Exam Physical Exam: General: Awake, confused, playing with feces. Heart: S1, S2/regular rate and rhythm Lungs: Clear to auscultation bilaterally. Normal effort Abdomen: Soft/nontender/nondistended. No hepatosplenomegaly Extremities: No clubbing/cyanosis. No edema Behavior: confused. Results & Data Results & Data Vital Signs (Past 12 Hours) Vital Signs Temp Pulse Resp BP Pulse Ox O2 Del Method 07/15/23 16:07 36.9 C 76 18 151/94 H 96 Room Air 07/15/23 10:19 Room Air 07/15/23 07:44 36.6 C 70 18 146/91 H 96 Room Air PG Care Time/CCT Total # of Minutes Spent Total Time Spent with Patient: Total time spent is greater than 50% in coordination of care (as documented) at patient's floor/unit and/or counseling patient: Coding Level of Care Code 63883 SUB INP/OBS CARE 2/35MIN Diagnoses Acute encephalopathy G93.40 Chronic alcoholism with psychosis with hallucinations F10.251 Cognitive impairment R41.89 Learning disabilities F81.9 Hypomagnesemia E83.42 Hypertension I10 Hepatitis C B19.20 Hypothyroidism E03.9 DVT prophylaxis Z29.9
[2023-07-15] MEDS: OLANZapine 10 MG/2.1 ML SDV IM PRN (20:54)
[2023-07-16] MEDS: CHECK CLONIDINE PATCH PLACEMENT SCH ×3 (00:55→16:49)
[2023-07-16] MEDS: LEVOTHYROXINE SODIUM 50 MCG TABLET PO SCH (06:10)
[2023-07-16 08:25] LABS: Hematocrit (blood only) 45.3 % (42.0-52.0); Hemoglobin 14.8 g/dl (14.0-18.0); Mean Corpuscular Hemoglobin 29.1 pg (25.0-34.0); Mean Corpuscular Hgb Conc 32.7 g/dL (32.0-36.0); Mean Platelet Volume 13.3 fL (9.4-12.4); Platelet Count 213 K/uL (130-400); RDW Coefficient of Variation 12.7 % (11.5-14.5); RDW Standard Deviation 41.8 fL (36.4-46.3); Red Blood Count 5.09 M/uL (4.70-6.10); White Blood Count 5.15 K/ul (4.8-10.8)
[2023-07-16 08:34] LABS: BUN Creatinine Ratio 31.1 (10-20); Calcium 9.7 mg/dl (8.6-10.3); Creatinine Clr Calc Pharmacy 103.5 ml/min; Est GFR (African American) 109.1 ml/min; Est GFR (Non-African American) 94.1 ml/min; Potassium 3.7 mmol/L (3.5-5.1)
[2023-07-16 08:41] LABS: INR 1.1 (0.9-1.1); Prothrombin Time 12.2 Seconds (9.0-12.0)
[2023-07-16] MEDS: PRENATAL VITAMIN 1 TAB PO SCH (10:30)
[2023-07-16] MEDS: OLANZapine ZYDIS 5 MG ORALLY DIS. TAB PO SCH ×2 (10:30→21:43)
[2023-07-16] MEDS: METOPROLOL SUCC 50MG EXT REL TAB PO SCH (10:31)
[2023-07-16] MEDS: THIAMINE HCL 100 MG TAB PO SCH (10:31)
[2023-07-16] MEDS: ENOXAPARIN INJ 40 MG/0.4 ML SYR SQ SCH (10:31)
[2023-07-16] MEDS: levoFLOXacin 500 MG TAB PO SCH (10:31)
[2023-07-16] MEDS: OLANZapine 10 MG/2.1 ML SDV IM PRN ×2 (12:05→22:43)
[2023-07-16] MEDS: cloNIDine HCL 0.1 MG/24 HR TRANSDERM SYS TD SCH (16:49)
--- NOTE | 2023-07-16 22:39 | Hospitalist Progress Note ---
Date of Service July 16, 2023 Assessment & Plan (1) Acute encephalopathy: Plan: clearing treating gram-negative UTI which may be causing metabolic encephalopathy starting Levaquin expect 3-day treatment continue scheduled Zyprexa ODT 2.5 in morning 5 at night. p.o. thiamine IM Ativan as needed. current mental status likely a combination of etoh withdrawal +/- a Wernicke's type state +/- delirium in the setting of baseline dementia plus metabolic ence phalopathy from UTI present on admission and medications in 2021 had a protracted hospitalization marked by prolonged etoh withdrawal period followed by weeks of confusion B1 level is within normal limit cont thiamine p.o. [address] head neg at time of admission Continue giving patient benzo medication for agitation and behavior control, also has IM Haldol backup, trying daily po zyprexa On 07/15, patient was found to be more confused. Appears to be waxing and waning. will continue to monitor. On 07/16 Appears less confused, able to have a conversation, but is not oriented to place or time. 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: Plan: per previous discussions with the pt's family he has had intermittent psychotic symptoms over the years some of this was in the setting of etoh abuse he also has remote h/o drug abuse he continues to drink etoh, and had a detectable etoh level upon admission here psych consult appreciated; recs welcomed checked B1 -within normal limits checked B12 - about 400 replace low thyroid - Synthroid 50mcg daily; if unable to take by mouth give IV every 2-3 days (3) Cognitive impairment: Plan: in 2021 had a 6+ week hospital stay in which he went through suspected etoh withdrawal, which was then followed by protracted course of severe confusion by the end of that stay his mentation improved to the point where it was felt he had medical decision making capacity subsequently there has been concern based on the record that he has a developing dementia process vs other a formal neurocognitive eval may be done in the future if not done already. (4) Learning disabilities: Plan: Per Dr. Tony, his sister has reported he was diagnosed with learning disabilities early in life Always struggled in school, etc Suggestive of LD (5) Hypomagnesemia: Plan: replaced resolved (6) Hypertension: Plan: improving control with catapress tts and attempts at oral meds (7) Hepatitis C: Plan: 12/2021 HepC ab + HepC RNA markedly elevated c/w active HepC infection ideally he see ID and/or GI after discharge to discuss definitive Rx with ongoing etoh abuse, however, uncertain if he is candidate for treatment ammonia levels have been wnl resolved transaminitis (8) Hypothyroidism: Plan: previous TSH levels have been mildly high current TSH level also high FT4 borderline low (9) DVT prophylaxis: Plan: lovenox 40mg daily Plan disposition remains a challenge as the patient's functional ability and ability to interact is in question to go to a personal-prison Admission and Anticipated Discharge Date Admission Date: June 22, 2023 Subjective Patient is more awake. Able to have a conversation, very limited, knows his name. Review of Systems Review of Systems: All systems reviewed & are unremarkable except as noted in HPI & below Physical Exam Physical Exam: General: Awake, alert, oriented only to person. Heart: S1, S2/regular rate and rhythm Lungs: Clear to auscultation bilaterally. Normal effort Abdomen: Soft/nontender/nondistended. No hepatosplenomegaly Extremities: No clubbing/cyanosis. No edema Behavior: confused. PG Care Time/CCT Total # of Minutes Spent Total Time Spent with Patient: Total time spent is greater than 50% in coordination of care (as documented) at patient's floor/unit and/or counseling patient: Coding Level of Care Code 79785 SUB INP/OBS CARE 2/35MIN Diagnoses Acute encephalopathy G93.40 Chronic alcoholism with psychosis with hallucinations F10.251 Cognitive impairment R41.89 Learning disabilities F81.9 Hypomagnesemia E83.42 Hypertension I10 Hepatitis C B19.20 Hypothyroidism E03.9 DVT prophylaxis Z29.9
[2023-07-17] MEDS: LEVOTHYROXINE SODIUM 50 MCG TABLET PO SCH (05:34)
[2023-07-17 07:32] LABS: Hematocrit (blood only) 45.1 % (42.0-52.0); Mean Corpuscular Hemoglobin 29.5 pg (25.0-34.0); Mean Corpuscular Hgb Conc 33.3 g/dL (32.0-36.0); Mean Corpuscular Volume 88.6 fL (80.0-100.0); Mean Platelet Volume 13.8 fL (9.4-12.4); Platelet Count 217 K/uL (130-400); RDW Coefficient of Variation 12.7 % (11.5-14.5); RDW Standard Deviation 41.4 fL (36.4-46.3); Red Blood Count 5.09 M/uL (4.70-6.10); White Blood Count 5.99 K/ul (4.8-10.8)
[2023-07-17 07:58] LABS: BUN Creatinine Ratio 23.8 (10-20); Calcium 9.9 mg/dl (8.6-10.3); Creatinine Clr Calc Pharmacy 95.7 ml/min; Est GFR (African American) 105.6 ml/min; Est GFR (Non-African American) 91.1 ml/min; Potassium 3.2 mmol/L (3.5-5.1)
--- NOTE | 2023-07-17 08:33 | Hospitalist Progress Note ---
Date of Service July 17, 2023 Assessment & Plan (1) Acute encephalopathy: Plan: clearing treating gram-negative UTI which may be causing metabolic encephalopathy starting Levaquin expect 3-day treatment continue scheduled Zyprexa ODT 2.5 in morning 5 at night. p.o. thiamine IM Ativan as needed. current mental status likely a combination of etoh withdrawal +/- a Wernicke's type state +/- delirium in the setting of baseline dementia plus metabolic ence phalopathy from UTI present on admission and medications in 2021 had a protracted hospitalization marked by prolonged etoh withdrawal period followed by weeks of confusion: this was almost a 7 week course B1 level is within normal limit Patient was treated initially for 9 days of high dose IV thiamine then transitioned to thiamine p.o. [address] head neg at time of admission Continue giving patient benzo medication for agitation and behavior control, also has IM Haldol backup, trying daily po zyprexa From 07/15-07/17, Patient has waxed and waned from full lethargy to being able to have a conversation but only oriented to person. Had discussion with daughter, who is the POA. She feels patient does not have capaicty and is in danger of himself and others. And that this past year, patient has shown that he is not capable of taking care of himself. She would want him placed in a snf facility. Patient though not able to participate in therapy due to his confusion. Will consult PT/OT. will reconsult psych for further input, and discuss with Neurology as well. Continue Thiamine. Treating other causes of delirium, such as a UTI, patient appeared to have refused antibiotics for 2 days, so he did not receive a full course. He has received doses on 07/15, and 07/16. patient will benefit from extending course another 3 days. 5 day course of levofloxacin should be able to erradicate this infection. 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: Plan: per previous discussions with the pt's family he has had intermittent psychotic symptoms over the years some of this was in the setting of etoh abuse he also has remote h/o drug abuse he continues to drink etoh, and had a detectable etoh level upon admission here psych consult appreciated; recs welcomed checked B1 -within normal limits checked B12 - about 400 replace low thyroid - Synthroid 50mcg daily; if unable to take by mouth give IV every 2-3 days (3) Cognitive impairment: Plan: in 2021 had a 6+ week hospital stay in which he went through suspected etoh withdrawal, which was then followed by protracted course of severe confusion by the end of that stay his mentation improved to the point where it was felt he had medical decision making capacity subsequently there has been concern based on the record that he has a developing dementia process vs other a formal neurocognitive eval may be done in the future if not done already. (4) Learning disabilities: Plan: Per Dr. Tony, his sister has reported he was diagnosed with learning disabilities early in life Always struggled in school, etc Suggestive of LD (5) Hypomagnesemia: Plan: replaced resolved (6) Hypertension: Plan: improving control with catapress tts and attempts at oral meds (7) Hepatitis C: Plan: 12/2021 HepC ab + HepC RNA markedly elevated c/w active HepC infection ideally he see ID and/or GI after discharge to discuss definitive Rx with ongoing etoh abuse, however, uncertain if he is candidate for treatment ammonia levels have been wnl resolved transaminitis (8) Hypothyroidism: Plan: previous TSH levels have been mildly high current TSH level also high FT4 borderline low (9) DVT prophylaxis: Plan: lovenox 40mg daily Plan disposition remains a challenge as the patient's functional ability and ability to interact is in question to go to a personal-[facility] Admission and Anticipated Discharge Date Admission Date: June 22, 2023 Subjective Patient continues to be very confused. Review of Systems Review of Systems: All systems reviewed & are unremarkable except as noted in HPI & below Physical Exam Physical Exam: General: Awake, alert, oriented only to person. Heart: S1, S2/regular rate and rhythm Lungs: Clear to auscultation bilaterally. Normal effort Abdomen: Soft/nontender/nondistended. No hepatosplenomegaly Extremities: No clubbing/cyanosis. No edema Behavior: confused. PG Care Time/CCT Total # of Minutes Spent Total Time Spent with Patient: Total time spent is greater than 50% in coordination of care (as documented) at patient's floor/unit and/or counseling patient: Coding Level of Care Code 33756 SUB INP/OBS CARE 3/50MIN Diagnoses Acute encephalopathy G93.40 Chronic alcoholism with psychosis with hallucinations F10.251 Cognitive impairment R41.89 Learning disabilities F81.9 Hypomagnesemia E83.42 Hypertension I10 Hepatitis C B19.20 Hypothyroidism E03.9 DVT prophylaxis Z29.9
[2023-07-17] MEDS: CHECK CLONIDINE PATCH PLACEMENT SCH ×3 (09:14→16:25)
[2023-07-17] MEDS: PRENATAL VITAMIN 1 TAB PO SCH (09:15)
[2023-07-17] MEDS: METOPROLOL SUCC 50MG EXT REL TAB PO SCH (09:15)
[2023-07-17] MEDS: THIAMINE HCL 100 MG TAB PO SCH (09:15)
[2023-07-17] MEDS: OLANZapine ZYDIS 5 MG ORALLY DIS. TAB PO SCH (09:16)
[2023-07-17] MEDS: ENOXAPARIN INJ 40 MG/0.4 ML SYR SQ SCH (09:22)
--- NOTE | 2023-07-17 10:40 | Neurology Consultation ---
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 Probable Wernicke Korsakoff syndrome. However, he does not appear to have oculomotor dysfunction and I am unable to safely assess his gait. He does have generalized atrophy including cerebellar atrophy on a previous brain MRI done in December 2021. Continue supportive medical care including supplemental thiamine. Continue with Zyprexa as ordered for management of agitated delirium. Given that he likely has an underlying dementia associated with alcoholism his baseline level of cognitive functioning is likely impaired, and at this time, I do not think he has capacity to make medical decisions pertaining to his care and likely would be unable to live independently. However, there is the possibility for some recovery of his cognitive functioning going forward, although at this point, I suspect improvement will be very slow, and may take several more weeks, if not months, if it occurs. Continued abstinence from alcohol will be important going forward. Formal outpatient neuropsychological evaluation could be considered, once he stabilizes. Given his lack of capacity to make decisions, he will likely need placement. I do not think additional neuroimaging is necessary at this time as it would not alter his management. I do not think an EEG or lumbar puncture is necessary at this time. History of Present Illness Reason for Consultation: encephalopathy Requesting Physician: Scott Attending Physician: Yeison Chavez History of Present Illness The patient is a 68-year-old male with a history of chronic alcohol abuse comp licated by psychosis and hallucinations, who presented to the emergency department on June 22, 2023 with hallucinations, disorientation, and fatigue. He had an elevated blood alcohol level at that time. A CT of the head revealed atrophy and chronic microvascular ischemic disease, no hemorrhage or acute process. A CTA of the head and neck were unremarkable. I independently reviewed these images. He has been receiving supplemental thiamine, folate, and supportive medical care. He has been seen by psychiatry who considered Wernicke encephalopathy/Korsakoff psychosis in the context of baseline cognitive decline. He did have a brain MRI completed in December 2021 in the context of altered mental status, I independently reviewed these images. The study reveals generalized atrophy with an element of hydrocephalus ex vacuo, bilateral hippocampal atrophy, cerebellar atrophy, and moderately extensive chronic microvascular ischemic disease, periventricular and subcortical distribution in both cerebral hemispheres. He has been treated for a urinary tract infection in the context of this hospitalization. History also notable for hepatitis C and hypothyroidism. He has been mumbling incoherently, routinely removes his clothing, and is an unreliable historian. Allergies Allergy/AdvReac Type Severity Reaction Status Date / Time bee venom protein (honey bee) Allergy Severe Anaphylaxis Verified 07/08/23 14:20 Home Medications Medication Instructions Recorded Confirmed Type epinephrine 0.3 mg/0.3 mL 0.3 mg (0.3 mL) IM Q10M PRN 12/24/22 06/22/23 Rx injection, auto-injector bronchodilation #2 ea amlodipine 2.5 mg tablet 2.5 mg PO DAILY 06/22/23 06/22/23 History metoprolol succinate 50 mg 50 mg PO DAILY 06/22/23 06/22/23 History tablet,extended release 24 hr quetiapine 25 mg tablet 25 mg PO BID 06/22/23 06/22/23 History Patient History Medical History Alcohol dependence (06/08/11) Alcohol use disorder Bee sting allergy Broken tooth Chronic dental pain Cognitive impairment Depression (06/08/11) Hallucination, visual Hepatitis C Hypertension Impacted third molar tooth Marijuana use Surgical History Status post hernia repair Status post knee surgery Family History Father Diabetes Hypertension Mother Breast cancer Denies family history of Ovarian cancer Prostate cancer Myocardial infarction Colorectal cancer Social History Smoking Status: Never smoker Hx Alcohol Use: Yes Alcohol type: beer Hx Substance Use: Yes Last Used Substance: Unknown Last Used Substance Other:: back in high school Preferred Language: Amharic Communication Ability: Effective Visual Impairment: No Limitations Hearing Ability: Normal Sign Designer Required: No Beliefs That Will Affect Care: None marital status: Single Current Living Situation: Boarding Home and Other Current Living Situation Comment: [facility] current occupational status: retired Feels Safe at Home: Yes Childhood Exposure to Second-Hand Smoke: No Dental Care, Regularly: Yes Physical Activity Frequency: Does not Exercise Seatbelt Use: always Assistive Devices: None Review of Systems Review of Systems: Unobtainable due to cognitive status Exam (Neuro) Constitutional: well developed and + behavioral limitations; no acute distress Eyes: normal visual stack by confrontation, PERRL and EOM intact bilaterally; no nystagmus Neurologic: Oriented to:: Person; negative Place or Time Memory: negative Short Term Intact or Remote Intact Attention: negative Span Intact or Concentration Intact Speech Fluency: Other (Mumbling, rambling, tangential speech) Speech Aphasia: negative Aphasia Fund of Knowledge: Vocabulary; negative Current Events or Past History Cranial Nerves: Normal II, III, IV, , V, VII, VIII, IX, X, XI and XII Motor Strength: Normal Lower Extremities and Normal Upper Extremities Motor Tone: Normal Lower Extremities and Normal Upper Extremities Muscle Bulk/Involuntary Movements: Action Tremor; negative Muscle Atrophy, Rest Tremor (Arm) or Head Tremor Sensation: negative Light Touch Intact, Pain/Temperature Intact or Proprioception Intact Coordination: negative Dysdiadochokinesia or Finger-Nose Abnormal Deep Tendon Reflexes: Rt Triceps: 1+, Lt Triceps: 1+, Rt Biceps: 1+, Lt Biceps: 1+, Rt Brachioradialis: 1+, Lt Brachioradialis: 1+, Rt Patellar: 1+, Lt Patellar: 1+, Rt Ankle: 1+ and Lt Ankle: 1+ Special Tests: negative Babinski Present Results & Data Vital Signs (Past 12 Hours) Vital Signs Temp Pulse Resp BP Pulse Ox O2 Del Method 07/17/23 09:17 37.1 C 73 18 118/76 97 Room Air Laboratory Results WBC 5.99, hemoglobin 15.0, hematocrit 45.1, MCV 88.6, platelet count 217, sodium 145, potassium 3.2, BUN 19, creatinine 0.80, glucose 99, calcium 9.9, ammonia 28.0, thiamine level from June 22 was 9, vitamin B12 level from June 24 was 394, TSH from June 22 was 6.257, a free T4 was 0.71, a urine toxicology screen from June 23 was negative, and ethyl alcohol level from June 22 was 29.9. Patient had a positive [place] Western blot in December [address] of the head including CTA of the head and neck from June 22, 2023 including brain MRI completed January 03, 2022 are as described in the HPI, I independently reviewed these images. An electrocardiogram completed June 22, 2023 revealed a normal sinus rhythm, 72 bpm. Coding Level of Care Code 78678 INT INP/OBS CARE 75MIN Diagnoses Wernicke-Korsakoff syndrome (alcoholic) F10.96 Dementia associated with alcoholism with behavioral disturbance F10.27 Encephalopathy G93.40 Peripheral neuropathy G62.9 Time Spent (min) 80
[2023-07-17] MEDS ORDERED: levoFLOXacin/D5W 750 MG/150 ML BAG IV SCH (11:00)
[2023-07-17] MEDS: levoFLOXacin 750 MG TAB PO SCH (11:31)
--- NOTE | 2023-07-17 12:31 | Psychiatric Progress Note ---
Date of Service July 17, 2023 Impression / Recommendations Impression 68 yo male with recurrent hospitalizations for ETOH withdrawal with little information re: intra-episode functioning but seemingly with significant cognitive issues and/or hallucinations at baseline given his chronic alcohol use disorder as well as periods of prolonged delirium in context of alcohol withdrawal vs intoxication based on prior admissions. Difficult to fully differentiate primary dx as Wernicke's encephalopathy/Korsakoff's psychosis as he is so acutely ill when admitted and may also have degree of progressive decline superimposed on baseline learning issues. Course of illness suggests alcohol induced rather than primary psychotic disorder though sister described some schizoid personality. 07/17/2023: ongoing confusion with periods of intermittent agitation Overall, I spent a total of 35 minutes with this case, including review of chart, direct evaluation of the patient, coordination of care with hospitalist service, and documentation. 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 Interval History Identifying Information The patient is a 68-year-old male with a past medical history including hypertension, agitation, alcoholism and obesity who presented to the emergency department with AMS/hallucinations. Mr. Sinclair was last seen on consult service by Dr. Angulo earlier this year. Chief Complaint ongoing confusion Subjective Subjective Patient was seen & assessed and interval progress reviewed with nursing. Period of agitation yesterday mid day where grabbing at staff and attempting to climb out of bed and shouting. IM Zyprexa X2 over course of day. Calmer this am, seemingly unaware he is naked, difficulty feeding self due to confusion. Physical Exam Psychiatric Orientation: alert and oriented to person Eye Contact: + poor eye contact Motor Behavior: no abnormal motor movements Speech: + abnormal rate/rhythm/volume of speech (brief, garbled) Affect: + blunted affect Mood: no anxious mood Thought Process: + tangential thought process Thought Content: not paranoid Suicidal Thoughts: denies suicidal thoughts Homicidal Thoughts: denies homicidal thoughts Hallucinations: no auditory hallucinations and no visual hallucinations Cognition: language grossly intact; + attention not intact Vital Signs (Past 24 Hours) Last Vital Signs Temp 37.1 C 07/17/23 09:17 Pulse 73 07/17/23 09:17 Resp 18 07/17/23 09:17 BP 118/76 07/17/23 09:17 Pulse Ox 97 07/17/23 09:17 O2 Del Method Room Air 07/17/23 09:17 Results & Data ([facility]) Laboratory Results Laboratory Results - last 24 hr 07/17/23 05:35 WBC 5.99 RBC 5.09 Hgb 15.0 Hct 45.1 MCV 88.6 MCH 29.5 MCHC 33.3 RDW Std Deviation 41.4 RDW Coeff of Dutch 12.7 Plt Count 217 MPV 13.8 H Sodium 145 Potassium 3.2 L Chloride 107 Carbon Dioxide 26 Anion Gap 12 H BUN 19 Creatinine 0.80 Est Cr Clr Drug Dosing 95.7 Est GFR ( Amer) 105.6 Est GFR (Non-Af Amer) 91.1 BUN/Creatinine Ratio 23.8 H Glucose 99 Calcium 9.9 Current Inpatient Medications Current Inpatient Medications: Current Inpatient Medications Acetaminophen (Acetaminophen 325 Mg Tab) 650 mg PO Q4H PRN PRN Reason: Pain or Fever Stop: 07/23/23 02:38 Clonidine HCl (Clonidine Hcl 0.1 Mg/24 Hr Transderm Sys) 1 patch TD Q7D@1630 [facility] Stop: 08/08/23 16:29 Last Admin: 07/16/23 16:49 Dose: 1 patch Enoxaparin Sodium (Enoxaparin Inj 40 Mg/0.4 Ml Syr) 40 mg SQ Q24H [facility] Stop: 07/23/23 08:59 Last Admin: 07/17/23 09:22 Dose: Not Given Levofloxacin (Levofloxacin 750 Mg Tab) 750 mg PO DAILY@1100 [facility]; Protocol Stop: 07/27/23 10:59 Last Admin: 07/17/23 11:31 Dose: Not Given Levothyroxine Sodium (Levothyroxine Sodium 50 Mcg Tablet) 50 mcg PO DAILYBB [facility] Stop: 07/24/23 06:29 Last Admin: 07/17/23 05:34 Dose: 50 mcg Lorazepam (Lorazepam 2 Mg/1 Ml Vial) 2 mg IM Q8H PRN PRN Reason: Anxiety/Agitation Stop: 08/07/23 17:19 Last Admin: 07/14/23 20:22 Dose: 2 mg Metoprolol Succinate (Metoprolol Succ 50mg Ext Rel Tab) 50 mg PO QAM [facility] Stop: 08/08/23 08:59 Last Admin: 07/17/23 09:15 Dose: 50 mg Miscellaneous (Check Clonidine Patch Placement) 1 each N/A QS [facility] Stop: 08/09/23 00:00 Last Admin: 07/17/23 09:14 Dose: 1 each Miscellaneous (Remove Clonidine Patch) 1 each N/A CQWK@1629 [facility] Stop: 08/08/23 16:28 Last Admin: 07/16/23 16:49 Dose: 1 each Olanzapine (Olanzapine 10 Mg/2.1 Ml Sdv) 5 mg IM Q6H PRN PRN Reason: Agitation Stop: 07/23/23 02:38 Last Admin: 07/16/23 22:43 Dose: 5 mg Olanzapine (Olanzapine Zydis 5 Mg Orally Dis. Tab) 5 mg PO QAM [facility] Stop: 08/17/23 08:59 Ondansetron HCl (Ondansetron Inj 2 Mg/Ml 2 Ml Vial) 4 mg IV Q6H PRN PRN Reason: Nausea Stop: 07/23/23 02:38 Prenat Multivit/[place]/Iron/Folic Ac ( Vitamin 1 Tab) 1 tab PO QAM [facility] Stop: 08/12/23 08:59 Last Admin: 07/17/23 09:15 Dose: 1 tab Thiamine HCl (Thiamine Hcl 100 Mg Tab) 100 mg PO QAM [facility] Stop: 08/09/23 08:59 Last Admin: 07/17/23 09:15 Dose: 100 mg
[2023-07-17] MEDS: LORazepam 2 MG/1 ML VIAL IM PRN (14:52)
[2023-07-18] MEDS: CHECK CLONIDINE PATCH PLACEMENT SCH ×3 (01:12→16:22)
[2023-07-18] MEDS: LEVOTHYROXINE SODIUM 50 MCG TABLET PO SCH (06:00)
[2023-07-18] MEDS: METOPROLOL SUCC 50MG EXT REL TAB PO SCH (08:54)
[2023-07-18] MEDS: OLANZapine ZYDIS 5 MG ORALLY DIS. TAB PO SCH (08:55)
[2023-07-18] MEDS: PRENATAL VITAMIN 1 TAB PO SCH (08:55)
[2023-07-18] MEDS: ENOXAPARIN INJ 40 MG/0.4 ML SYR SQ SCH (08:56)
[2023-07-18] MEDS: THIAMINE HCL 100 MG TAB PO SCH (09:01)
[2023-07-18] MEDS: levoFLOXacin 750 MG TAB PO SCH (10:18)
[2023-07-18] MEDS: LORazepam 2 MG/1 ML VIAL IM PRN (13:34)
--- NOTE | 2023-07-18 14:45 | Hospitalist Progress Note ---
Date of Service July 18, 2023 Assessment & Plan (1) Acute encephalopathy: Plan: clearing treating gram-negative UTI which may be causing metabolic encephalopathy starting Levaquin expect 3-day treatment continue scheduled Zyprexa ODT 2.5 in morning 5 at night. p.o. thiamine IM Ativan as needed. current mental status likely a combination of etoh withdrawal +/- a Wernicke's type state +/- delirium in the setting of baseline dementia plus metabolic ence phalopathy from UTI present on admission and medications in 2021 had a protracted hospitalization marked by prolonged etoh withdrawal period followed by weeks of confusion: this was almost a 7 week course B1 level is within normal limit Patient was treated initially for 9 days of high dose IV thiamine then transitioned to thiamine p.o. [address] head neg at time of admission Continue giving patient benzo medication for agitation and behavior control, also has IM Haldol backup, trying daily po zyprexa From 07/15-07/17, Patient has waxed and waned from full lethargy to being able to have a conversation but only oriented to person. Had discussion with daughter, who is the POA. She feels patient does not have capaicty and is in danger of himself and others. And that this past year, patient has shown that he is not capable of taking care of himself. She would want him placed in a [facility] facility. Patient though not able to participate in therapy due to his confusion. Will consult PT/OT. appreciate psych and neurology input Continue Thiamine. Treating other causes of delirium, such as a UTI, patient appeared to have refused antibiotics for 2 days, so he did not receive a full course. He has received doses on 07/15, and 07/16. patient will benefit from extending course another 3 days. 5 day course of levofloxacin should be able to erradicate this infection. 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: Plan: per previous discussions with the pt's family he has had intermittent psychotic symptoms over the years some of this was in the setting of etoh abuse he also has remote h/o drug abuse he continues to drink etoh, and had a detectable etoh level upon admission here psych consult appreciated; recs welcomed checked B1 -within normal limits checked B12 - about 400 replace low thyroid - Synthroid 50mcg daily; if unable to take by mouth give IV every 2-3 days (3) Cognitive impairment: Plan: in 2021 had a 6+ week hospital stay in which he went through suspected etoh withdrawal, which was then followed by protracted course of severe confusion by the end of that stay his mentation improved to the point where it was felt he had medical decision making capacity subsequently there has been concern based on the record that he has a developing dementia process vs other a formal neurocognitive eval may be done in the future if not done already. (4) Learning disabilities: Plan: Per Dr. Tony, his sister has reported he was diagnosed with learning disabilities early in life Always struggled in school, etc Suggestive of LD (5) Hypomagnesemia: Plan: replaced resolved (6) Hypertension: Plan: improving control with catapress tts and attempts at oral meds (7) Hepatitis C: Plan: 12/2021 HepC ab + HepC RNA markedly elevated c/w active HepC infection ideally he see ID and/or GI after discharge to discuss definitive Rx with ongoing etoh abuse, however, uncertain if he is candidate for treatment ammonia levels have been wnl resolved transaminitis (8) Hypothyroidism: Plan: previous TSH levels have been mildly high current TSH level also high FT4 borderline low (9) DVT prophylaxis: Plan: lovenox 40mg daily Plan disposition remains a challenge as the patient's functional ability and ability to interact is in question to go to a personal-alf Admission and Anticipated Discharge Date Admission Date: June 22, 2023 Subjective patient does not seem to have any major complaints. He is talking but not making much sense. Review of Systems Review of Systems: Unobtainable due to cognitive status Physical Exam Physical Exam: General: Awake, conversant. Not making much sense Heart: S1, S2/regular rate and rhythm, no murmur rubs or gallops Lungs: Clear to auscultation bilaterally. Normal effort Abdomen: Soft/nontender/nondistended. No hepatosplenomegaly Extremities: No clubbing/cyanosis. No edema Behavior: Appropriate, cooperative Results & Data Results & Data Vital Signs (Past 12 Hours) Vital Signs Temp Pulse Resp BP Pulse Ox O2 Del Method 07/18/23 08:15 36.1 C L 66 16 156/88 H 96 Room Air PG Care Time/CCT Total # of Minutes Spent Total Time Spent with Patient: Total time spent is greater than 50% in coordination of care (as documented) at patient's floor/unit and/or counseling patient: Coding Level of Care Code 58823 SUB INP/OBS CARE 2MIN Diagnoses Acute encephalopathy G93.40 Chronic alcoholism with psychosis with hallucinations F10.251 Cognitive impairment R41.89 Learning disabilities F81.9 Hypomagnesemia E83.42 Hypertension I10 Hepatitis C B19.20 Hypothyroidism E03.9 DVT prophylaxis Z29.9
[2023-07-19] MEDS: CHECK CLONIDINE PATCH PLACEMENT SCH ×4 (01:48→23:40)
[2023-07-19] MEDS: LEVOTHYROXINE SODIUM 50 MCG TABLET PO SCH (05:58)
[2023-07-19] MEDS: THIAMINE HCL 100 MG TAB PO SCH (08:13)
[2023-07-19] MEDS: PRENATAL VITAMIN 1 TAB PO SCH (08:13)
[2023-07-19] MEDS: OLANZapine ZYDIS 5 MG ORALLY DIS. TAB PO SCH (08:14)
[2023-07-19] MEDS: ENOXAPARIN INJ 40 MG/0.4 ML SYR SQ SCH (08:14)
[2023-07-19] MEDS: METOPROLOL SUCC 50MG EXT REL TAB PO SCH (08:14)
[2023-07-19] MEDS: levoFLOXacin 750 MG TAB PO SCH (11:06)
--- NOTE | 2023-07-19 14:35 | Hospitalist Progress Note ---
Date of Service July 19, 2023 Assessment & Plan (1) Acute encephalopathy: Plan: clearing treating gram-negative UTI which may be causing metabolic encephalopathy starting Levaquin expect 3-day treatment continue scheduled Zyprexa ODT 2.5 in morning 5 at night. p.o. thiamine IM Ativan as needed. current mental status likely a combination of etoh withdrawal +/- a Wernicke's type state +/- delirium in the setting of baseline dementia plus metabolic ence phalopathy from UTI present on admission and medications in 2021 had a protracted hospitalization marked by prolonged etoh withdrawal period followed by weeks of confusion: this was almost a 7 week course B1 level is within normal limit Patient was treated initially for 9 days of high dose IV thiamine then transitioned to thiamine p.o. [address] head neg at time of admission Continue giving patient benzo medication for agitation and behavior control, also has IM Haldol backup, trying daily po zyprexa From 07/15-07/17, Patient has waxed and waned from full lethargy to being able to have a conversation but only oriented to person. Had discussion with daughter, who is the POA. She feels patient does not have capaicty and is in danger of himself and others. And that this past year, patient has shown that he is not capable of taking care of himself. She would want him placed in a [facility] facility. Patient though not able to participate in therapy due to his confusion. Will consult PT/OT. appreciate psych and neurology input Continue Thiamine. Treating other causes of delirium, such as a UTI, patient appeared to have refused antibiotics for 2 days, so he did not receive a full course. He has received doses on 07/15, and 07/16. patient will benefit from extending course another 3 days. 5 day course of levofloxacin should be able to erradicate this infection. 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: Plan: per previous discussions with the pt's family he has had intermittent psychotic symptoms over the years some of this was in the setting of etoh abuse he also has remote h/o drug abuse he continues to drink etoh, and had a detectable etoh level upon admission here psych consult appreciated; recs welcomed checked B1 -within normal limits checked B12 - about 400 replace low thyroid - Synthroid 50mcg daily; if unable to take by mouth give IV every 2-3 days (3) Cognitive impairment: Plan: in 2021 had a 6+ week hospital stay in which he went through suspected etoh withdrawal, which was then followed by protracted course of severe confusion by the end of that stay his mentation improved to the point where it was felt he had medical decision making capacity subsequently there has been concern based on the record that he has a developing dementia process vs other a formal neurocognitive eval may be done in the future if not done already. (4) Learning disabilities: Plan: Per Dr. Tony, his sister has reported he was diagnosed with learning disabilities early in life Always struggled in school, etc Suggestive of LD (5) Hypomagnesemia: Plan: replaced resolved (6) Hypertension: Plan: improving control with catapres and attempts at oral meds (7) Hepatitis C: Plan: 12/2021 HepC ab + HepC RNA markedly elevated c/w active HepC infection ideally he see ID and/or GI after discharge to discuss definitive Rx with ongoing etoh abuse, however, uncertain if he is candidate for treatment ammonia levels have been wnl resolved transaminitis (8) Hypothyroidism: Plan: previous TSH levels have been mildly high current TSH level also high FT4 borderline low (9) DVT prophylaxis: Plan: lovenox 40mg daily Plan disposition remains a challenge as the patient's functional ability and ability to interact is in question to go to a personal-half-way Admission and Anticipated Discharge Date Admission Date: June 22, 2023 Subjective patient remains confused. Review of Systems Review of Systems: Unobtainable due to cognitive status Physical Exam Physical Exam: General: Awake, Talking. Not making much sense Heart: S1, S2/regular rate and rhythm, no murmur rubs or gallops Lungs: Clear to auscultation bilaterally. Normal effort Abdomen: Soft/nontender/nondistended. No hepatosplenomegaly Extremities: No clubbing/cyanosis. No edema Behavior: Appropriate, cooperative Results & Data Results & Data Vital Signs (Past 12 Hours) Vital Signs Pulse Resp BP Pulse Ox O2 Del Method 07/19/23 07:55 78 16 131/80 96 Room Air PG Care Time/CCT Total # of Minutes Spent Total Time Spent with Patient: Total time spent is greater than 50% in coordination of care (as documented) at patient's floor/unit and/or counseling patient: Coding Level of Care Code 58683 SUB INP/OBS CARE MIN Diagnoses Acute encephalopathy G93.40 Chronic alcoholism with psychosis with hallucinations F10.251 Cognitive impairment R41.89 Learning disabilities F81.9 Hypomagnesemia E83.42 Hypertension I10 Hepatitis C B19.20 Hypothyroidism E03.9 DVT prophylaxis Z29.9
--- NOTE | 2023-07-19 14:55 | Communication Note ---
Date of Service: July 19, 2023 interim progress reviewed as Zyprexa standing doses increased recently. Has not required IM Zyprexa since, did get Ativan prn yesterday. Overall calmer, does still try to call out but less restless in bed. less confused per nursing.
[2023-07-19] MEDS: LORazepam 2 MG/1 ML VIAL IM PRN (19:00)
[2023-07-20] MEDS: LEVOTHYROXINE SODIUM 50 MCG TABLET PO SCH (06:03)
[2023-07-20] MEDS: CHECK CLONIDINE PATCH PLACEMENT SCH ×2 (07:25→15:03)
[2023-07-20] MEDS: METOPROLOL SUCC 50MG EXT REL TAB PO SCH (08:03)
[2023-07-20] MEDS: THIAMINE HCL 100 MG TAB PO SCH (08:03)
[2023-07-20] MEDS: OLANZapine ZYDIS 5 MG ORALLY DIS. TAB PO SCH (08:04)
[2023-07-20] MEDS: ENOXAPARIN INJ 40 MG/0.4 ML SYR SQ SCH (08:04)
[2023-07-20] MEDS: PRENATAL VITAMIN 1 TAB PO SCH (08:04)
[2023-07-20] MEDS: levoFLOXacin 750 MG TAB PO SCH (11:52)
--- NOTE | 2023-07-20 18:38 | Hospitalist Progress Note ---
Date of Service July 20, 2023 Assessment & Plan (1) Acute encephalopathy: Plan: Acute on chronic possibly aggravated with E. coli, completed 3-day course of treatment with Levaquin, discontinue Levaquin, partial improvement in mental status continue scheduled Zyprexa 2.5 in morning 5 at night. p.o. thiamine IM Ativan as needed. Multifactorial likely a combination of etoh withdrawal +/- a Wernicke's type state +/- delirium in the setting of baseline dementia plus metabolic encephalopathy from UTI present on admission and medications in 2021 had a protracted hospitalization marked by prolonged etoh withdrawal period followed by weeks of confusion: this was almost a 7 week course B1 level is within normal limit Patient was treated initially for 9 days of high dose IV thiamine then transitioned to thiamine p.o. [address] head neg at time of admission Daughter is DPOA, pending placement Proceed with bladder scan 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: Plan: per previous discussions with the pt's family he has had intermittent psychotic symptoms over the years some of this was in the setting of etoh abuse he also has remote h/o drug abuse he continues to drink etoh, and had a detectable etoh level upon admission here psych consult appreciated; recs welcomed checked B1 -within normal limits checked B12 - about 400 replace low thyroid - Synthroid 50mcg daily; if unable to take by mouth give IV every 2-3 days (3) Cognitive impairment: Plan: in 2021 had a 6+ week hospital stay in which he went through suspected etoh withdrawal, which was then followed by protracted course of severe confusion by the end of that stay his mentation improved to the point where it was felt he had medical decision making capacity subsequently there has been concern based on the record that he has a developing dementia process vs other a formal neurocognitive eval may be done in the future if not done already. (4) Learning disabilities: Plan: Per Dr. Tony, his sister has reported he was diagnosed with learning disabilities early in life Always struggled in school, etc Suggestive of LD (5) Hypomagnesemia: Plan: replaced resolved (6) Hypertension: Plan: improving control with catapres and attempts at oral meds (7) Hepatitis C: Plan: 12/2021 HepC ab + HepC RNA markedly elevated c/w active HepC infection ideally he see ID and/or GI after discharge to discuss definitive Rx with ongoing etoh abuse, however, uncertain if he is candidate for treatment ammonia levels have been wnl resolved transaminitis (8) Hypothyroidism: Plan: previous TSH levels have been mildly high current TSH level also high FT4 borderline low (9) DVT prophylaxis: Plan: lovenox 40mg daily Plan disposition remains a challenge as the patient's functional ability and ability to interact is in question to go to a personal-intermediate Admission and Anticipated Discharge Date Admission Date: June 22, 2023 Subjective Mental status seems improved today answered appropriately to simple question Results & Data Results & Data Vital Signs (Past 12 Hours) Vital Signs Temp Pulse Resp BP Pulse Ox O2 Del Method 07/20/23 16:17 36.3 C L 65 18 162/85 H 100 Room Air 07/20/23 08:12 36.4 C L 72 18 145/85 H 96 Room Air PG Care Time/CCT Total # of Minutes Spent Total Time Spent with Patient: Total time spent is greater than 50% in coordination of care (as documented) at patient's floor/unit and/or counseling patient: Coding Level of Care Code 40917 SUB INP/OBS CARE 2/35MIN Diagnoses Acute encephalopathy G93.40 Chronic alcoholism with psychosis with hallucinations F10.251 Cognitive impairment R41.89 Learning disabilities F81.9 Hypomagnesemia E83.42 Hypertension I10 Hepatitis C B19.20 Hypothyroidism E03.9 DVT prophylaxis Z29.9
[2023-07-21] MEDS: CHECK CLONIDINE PATCH PLACEMENT SCH ×3 (02:13→16:31)
[2023-07-21] MEDS: LEVOTHYROXINE SODIUM 50 MCG TABLET PO SCH (05:27)
[2023-07-21] MEDS: METOPROLOL SUCC 50MG EXT REL TAB PO SCH (08:14)
[2023-07-21] MEDS: THIAMINE HCL 100 MG TAB PO SCH (08:15)
[2023-07-21] MEDS: OLANZapine ZYDIS 5 MG ORALLY DIS. TAB PO SCH (08:15)
[2023-07-21] MEDS: PRENATAL VITAMIN 1 TAB PO SCH (08:15)
[2023-07-21] MEDS: ENOXAPARIN INJ 40 MG/0.4 ML SYR SQ SCH (08:18)
[2023-07-21] MEDS ORDERED: LORazepam 2 MG/1 ML VIAL IM PRN ×2 (08:26→14:28)
--- NOTE | 2023-07-21 08:31 | Communication Note ---
Date of Service: July 21, 2023 interim progress reviewed, ongoing improvement in confusion and cooperation with care. Only prn for restlessness has been Ativan usually early afternoon. Will decrease from 2 mg to 1 mg prn and monitor use as plan to d/c prior to placement. Will add 1 mg Ativan PO standing daily at noon as more desirable to use PO rather than IM.
[2023-07-21] MEDS ORDERED: LORazepam 1 MG TAB PO SCH (12:00)
--- NOTE | 2023-07-21 19:14 | Hospitalist Progress Note ---
Date of Service July 21, 2023 Assessment & Plan (1) Acute encephalopathy: Plan: Acute on chronic possibly aggravated with E. coli, completed 3-day course of treatment with Levaquin, discontinue Levaquin, partial improvement in mental status continue scheduled Zyprexa 2.5 in morning 5 at night. p.o. thiamine IM Ativan as needed. Multifactorial likely a combination of etoh withdrawal +/- a Wernicke's type state +/- delirium in the setting of baseline dementia plus metabolic encephalopathy from UTI present on admission and medications in 2021 had a protracted hospitalization marked by prolonged etoh withdrawal period followed by weeks of confusion: this was almost a 7 week course B1 level is within normal limit Patient was treated initially for 9 days of high dose IV thiamine then transitioned to thiamine p.o. [address] head neg at time of admission Daughter is DPOA, pending placement Proceed with bladder scan 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: Plan: per previous discussions with the pt's family he has had intermittent psychotic symptoms over the years some of this was in the setting of etoh abuse he also has remote h/o drug abuse he continues to drink etoh, and had a detectable etoh level upon admission here psych consult appreciated; recs welcomed checked B1 -within normal limits checked B12 - about 400 replace low thyroid - Synthroid 50mcg daily; if unable to take by mouth give IV every 2-3 days (3) Cognitive impairment: Plan: in 2021 had a 6+ week hospital stay in which he went through suspected etoh withdrawal, which was then followed by protracted course of severe confusion by the end of that stay his mentation improved to the point where it was felt he had medical decision making capacity subsequently there has been concern based on the record that he has a developing dementia process vs other a formal neurocognitive eval may be done in the future if not done already. (4) Learning disabilities: Plan: Per Dr. Tony, his sister has reported he was diagnosed with learning disabilities early in life Always struggled in school, etc Suggestive of LD (5) Hypomagnesemia: Plan: replaced resolved (6) Hypertension: Plan: improving control with catapres and attempts at oral meds (7) Hepatitis C: Plan: 12/2021 HepC ab + HepC RNA markedly elevated c/w active HepC infection ideally he see ID and/or GI after discharge to discuss definitive Rx with ongoing etoh abuse, however, uncertain if he is candidate for treatment ammonia levels have been wnl resolved transaminitis (8) Hypothyroidism: Plan: previous TSH levels have been mildly high current TSH level also high FT4 borderline low (9) DVT prophylaxis: Plan: lovenox 40mg daily Plan disposition remains a challenge as the patient's functional ability and ability to interact is in question to go to a personal-long-term Admission and Anticipated Discharge Date Admission Date: June 22, 2023 Subjective Took of the clonidine patch, we started on p.o., clonidine Review of Systems Review of Systems: cv - denies chest pain pulm - denies dyspnea neuro - denies headache GI - denies pain gen - does not have a great appetite Results & Data Results & Data Vital Signs (Past 12 Hours) Vital Signs Temp Pulse Resp BP BP Pulse Ox O2 Del Method 07/21/23 15:44 36.4 C L 72 18 153/72 H 96 Room Air 07/21/23 08:04 36.7 C 91 H 18 145/85 H 95 Room Air PG Care Time/CCT Total # of Minutes Spent Total Time Spent with Patient: Total time spent is greater than 50% in coordination of care (as documented) at patient's floor/unit and/or counseling patient: Coding Level of Care Code 34794 SUB INP/OBS CARE 10/07MIN Diagnoses Acute encephalopathy G93.40 Chronic alcoholism with psychosis with hallucinations F10.251 Cognitive impairment R41.89 Learning disabilities F81.9 Hypomagnesemia E83.42 Hypertension I10 Hepatitis C B19.20 Hypothyroidism E03.9 DVT prophylaxis Z29.9
[2023-07-21] MEDS: cloNIDine HCL 0.1 MG TAB PO SCH (19:38)
[2023-07-22] MEDS: CHECK CLONIDINE PATCH PLACEMENT SCH ×2 (00:20→07:01)
[2023-07-22 07:00] VITALS: PULSE 88; RESP 16; TEMP 97.5; O2SAT 95
[2023-07-22] MEDS: LEVOTHYROXINE SODIUM 50 MCG TABLET PO SCH (07:01)
[2023-07-22] MEDS: cloNIDine HCL 0.1 MG TAB PO SCH (07:01)
[2023-07-22] MEDS: OLANZapine ZYDIS 5 MG ORALLY DIS. TAB PO SCH (07:01)
[2023-07-22] MEDS: THIAMINE HCL 100 MG TAB PO SCH (07:01)
[2023-07-22] MEDS: METOPROLOL SUCC 50MG EXT REL TAB PO SCH (07:01)
[2023-07-22] MEDS: PRENATAL VITAMIN 1 TAB PO SCH (07:02)
[2023-07-22] MEDS: ENOXAPARIN INJ 40 MG/0.4 ML SYR SQ SCH (07:11)
[2023-07-22 08:52] VITALS: BP 122/79
--- NOTE | 2023-07-22 10:26 | Discharge Summary ---
Date of Service July 22, 2023 Admission HPI Per Admitting Provider The patient is a 68-year-old male with a past medical history including hypertension, agitation, alcoholism and obesity who presents to the emergency department with concerns regarding hallucinations, disorientation and fatigue. He reports that he usually drinks a sixpack a day, his last alcohol intake was 2 days ago. He reports that he presently lives out of his van. Significant laboratories: AST 58, ALT 67, alcohol level 29.9 Imaging studies: CT head, CTA head and neck, and chest x-ray all negative. From the ED the patient received the following: Banana bag, thiamine 5 mg IV, Lopressor 5 mg IV, LR 500 mL bolus, pantoprazole 40 mg IV and famotidine 20 mg IV Principal Diagnosis Acute on chronic encephalopathy multifactorial Discharge Exam General: Awake, Talking. Not making much sense Heart: S1, S2/regular rate and rhythm, no murmur rubs or gallops Lungs: Clear to auscultation bilaterally. Normal effort Abdomen: Soft/nontender/nondistended. No hepatosplenomegaly Extremities: No clubbing/cyanosis. No edema Behavior: Appropriate, cooperative Discharge Data Allergies Allergy/AdvReac Type Severity Reaction Status Date / Time bee venom protein (honey bee) Allergy Severe Anaphylaxis Verified 07/08/23 14:20 Consultations 06/22/23 23:04 ED Decision to Admit Stat 06/24/23 11:57 Consult Psychiatry Routine 07/17/23 08:42 Consult Neurology Routine Consult Psychiatry Routine Ordered Studies 06/22/23 19:20 CT angio head w con Stat CT angio neck with con Stat CT head/brain wo con Stat Hospital Course (1) Acute encephalopathy: Multifactorial likely a combination of etoh withdrawal +/- a Wernicke's type state +/- delirium in the setting of baseline dementia plus metabolic encephalopathy from UTI present on admission and medications in 2021 had a protracted hospitalization marked by prolonged etoh withdrawal period followed by weeks of confusion: this was almost a 7 week course Acute on chronic possibly aggravated with E. coli, completed 3-day course of treatment with Levaquin, partial improvement in mental status continue scheduled Zyprexa p.o. thiamine multivitamin B1 level is within normal limit Patient was treated initially for 9 days of high dose IV thiamine then transitioned to thiamine p.o. [address] head neg at time of admission 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: per previous discussions with the pt's family he has had intermittent psychotic symptoms over the years some of this was in the setting of etoh abuse he also has remote h/o drug abuse he continues to drink etoh, and had a detectable etoh level upon admission here Consulted by psychiatry currently on Zyprexa checked B1 -within normal limits checked B12 - about 400 replace low thyroid - Synthroid 50mcg daily; (3) Cognitive impairment: in 2021 had a 6+ week hospital stay in which he went through suspected etoh withdrawal, which was then followed by protracted course of severe confusion by the end of that stay his mentation improved to the point where it was felt he had medical decision making capacity subsequently there has been concern based on the record that he has a developing dementia process vs other a formal neurocognitive eval may be done in the future if not done already. (4) Learning disabilities: Per Dr. Tony, his sister has reported he was diagnosed with learning disabilities early in life Always struggled in school, etc Suggestive of LD (5) Hypomagnesemia: replaced resolved (6) Hypertension: Good control with current treatment with clonidine (7) Hepatitis C: 12/2021 HepC ab + HepC RNA markedly elevated c/w active HepC infection ideally he see ID and/or GI after discharge to discuss definitive Rx with ongoing etoh abuse, however, uncertain if he is candidate for treatment ammonia levels have been wnl resolved transaminitis (8) Hypothyroidism: previous TSH levels have been mildly high current TSH level also high FT4 borderline low Started on Synthroid Plan disposition remains a challenge as the patient's functional ability and ability to interact is in question to go to a personal-longterm Total Time Total Time Spent Total Time Spent (In Minutes): 45 Discharge Plan Discharge Items Patient Disposition: Transfer [facility] Reason For Visit: ALCOHOL WITHDRAWAL / DELIRIUM Discharge Diagnosis: ETOH abuse possible Wernicke encephalopathy Condition on Discharge: Fair Activity: Resume your previous activity Non-emergency contact: Primary Care Provider Call non-emergency contact if: you have any medication questions Follow-up/Referrals: Stanley Hirsch CRNP [Primary Care Provider] - Diet: Heart Healthy Addtl Attending Provider Instructions: chronic encephalopathy due to ETOH abuse Pending Studies at Discharge: No Stand-Alone Forms: My [facility] Skilled Items Patient informed of condition?: Yes DNR: Yes Discharge Level of Care: Skilled Communicable Disease: No Discharge Prognosis: Deteriorating Lines: None Urinary Catheter: No Medications and DC Order Prescriptions: New clonidine HCl 0.1 mg Tablet 0.2 mg PO BID Qty: 60 0RF thiamine HCl (vitamin B1) 100 mg Tablet 100 mg PO QAM Qty: 100 0RF levothyroxine [Synthroid] 50 mcg Tablet 50 mcg PO DAILYBB Qty: 60 0RF olanzapine 10 mg Tablet,Disintegrating 10 mg PO HS Qty: 60 0RF olanzapine 5 mg Tablet,Disintegrating 5 mg PO QAM Qty: 50 0RF Vitamin 27 mg iron- 800 mcg Tablet 1 tab PO QAM Qty: 90 0RF Continued metoprolol succinate 50 mg tablet extended release 24 hr 50 mg PO DAILY Discontinued epinephrine 0.3 mg/0.3 mL auto-injector 0.3 mg IM Q10M PRN (Reason: bronchodilation) Qty: 2 2RF Rx Instructions: until response quetiapine 25 mg tablet 25 mg PO BID amlodipine 2.5 mg tablet 2.5 mg PO DAILY Discharge Orders: Discharge Order (Routine); Ordered 07/22/23 Ordered By: Josue García/Other Patient Handouts: Understanding Dementia Admission Data Admit Date/Time: 06/22/23 23:54 Attending Provider: Josue Osorio Admit Provider: Ross Vasquez Primary Care Provider: Stanley Hirsch Other Providers: Ross Vasquez; Linette Angulo; Irena Lugo; Connor Urena; [facility]; Bobby San; [facility] Other Interventions: Discharge Summary Assessment (RN) Last Done: 07/22/23 10:16 Coding Level of Care Code 38228 INP/OBS DISCH >30 MIN Diagnoses Acute encephalopathy G93.40 Chronic alcoholism with psychosis with hallucinations F10.251 Cognitive impairment R41.89 Learning disabilities F81.9 Hypomagnesemia E83.42 Hypertension I10 Hepatitis C B19.20 Hypothyroidism E03.9
== END 2023-07-22 10:57 | DRG 896 ==
LOC: ED 19:02 → SUATTDRO 23:54 → 2N 23:54 → 2S 06-25 05:06 → 3W 07-11 15:52
DX: F10.27 Alcohol dependence with alcohol-induced persisting dementia; E51.2 Wernicke's encephalopathy; E03.9 Hypothyroidism, unspecified; B19.20 Unspecified viral hepatitis C without hepatic coma; F10.232 Alcohol dependence with withdrawal with perceptual disturbance; E83.42 Hypomagnesemia; F10.251 Alcohol dependence with alcohol-induced psychotic disorder with hallucinations; G93.41 Metabolic encephalopathy; Z59.02 Unsheltered homelessness; I10 Essential (primary) hypertension; F03.918 Unspecified dementia, unspecified severity, with other behavioral disturbance; N39.0 Urinary tract infection, site not specified; I67.82 Cerebral ischemia; F81.9 Developmental disorder of scholastic skills, unspecified; G62.9 Polyneuropathy, unspecified; B96.20 Unspecified Escherichia coli [E. coli] as the cause of diseases classified elsewhere